=== PATIENT | female | born 1935 | race Caucasian/White ===

== ENCOUNTER → 2018-03-29 10:51 | Outpatient (CLI) | payer MEDICARE, OTHER, SELFPAY ==
--- NOTE | 2018-03-29 10:51 | DT_ITS ---
This patient was seen during an EMR downtime March 28, 2018 - April 04, 2018. This patient may have a combination of paper and electronic documentation or all paper documentation. All documentation is viewable within the e-chart portion of [facility] for each patient visit.
[2018-04-04 17:48] LABS: Hemoglobin A1c 5.5 % (4.2-6.3); Rheumatoid Factor < 10.0 IU/mL (<15); Thyroid Stim Hormone (TSH) 2.01 uIU/mL (0.358-3.74)
== END ==
PROVIDERS: Family Provider Family Medicine Geriatric Medicine; PCP Family Medicine Geriatric Medicine; Visit Provider Psychiatry & Neurology Neurology
DX: G62.9 Polyneuropathy, unspecified (principal)
CPT/HCPCS: 36415; 82607; 82784; 83036; 84165; 84166; 84443; 86038; 86235; 86256; 86334; 86335; 86431

== ENCOUNTER → 2018-04-06 15:54 | Outpatient (CLI) | payer MEDICARE, OTHER, SELFPAY ==
--- NOTE | 2018-04-06 16:02 | MRI_ITS ---
STUDY: MRI CERVICAL SPINE WITHOUT CONTRAST REASON FOR EXAM: Female, 83 years old. Arthritis and frequent falls TECHNIQUE: Standardized fat and water weighted pulse sequences were obtained in the sagittal and axial planes. COMPARISON: December 08 2011 MR cervical spine FINDINGS: Normal foramen magnum and brainstem-cervical cord junction. Normal craniovertebral junction. Normal anterior atlantoaxial articulation. Normal odontoid process. Normal cervical lordosis. Normal vertebral bodies and posterior osseous elements. C2-3: Normal endplates. Normal disc height, signal and morphology. Normal central canal and intervertebral neural foramina. C3-4: Severe narrowing of neural foramen on the right due to uncinate spondylosis. Central canal left neural foramen are patent. C4-5: Moderate narrowing of the neural foramina bilaterally due to uncinate spondylosis. Central canal is patent. C5-6: Moderate narrowing right neural foramen due to uncinate spondylosis. Central canal left neural foramen patent. Disc space narrowing. C6-7: Normal endplates. Narrowed disc height, signal and morphology. Normal central canal and intervertebral neural foramina. C7-T1: Normal endplates. Narrowed disc height, signal and morphology. Normal central canal and intervertebral neural foramina. Normal cervical cord. Normal visualized soft tissue structures. MRI/Spine Cervical (Routine) IMPRESSION: Multilevel degenerative disc disease and neural foraminal narrowing essentially unchanged Electronically Signed: Isauro Mercado MD at 23:52 EDT , Service support ,
--- NOTE | 2018-04-06 16:02 | MRI_ITS ---
STUDY: MRI LUMBAR SPINE WITHOUT CONTRAST REASON FOR EXAM: Female, 83 years old. Lower back pain TECHNIQUE: Standardized fat and water weighted pulse sequences were obtained in the sagittal and axial planes. COMPARISON: May 17, 2013 FINDINGS: T12-L1: Normal endplates. Normal disc height, hydration and morphology. Normal bilateral facet joints. Normal central canal and bilateral lateral recesses. Normal bilateral intervertebral neural foramina. Normal lumbar lordosis. There is no substantial scoliosis. Normal conus medullaris that terminates at T12-L1 L1-2: Normal endplates. Normal disc height, hydration and morphology. Normal bilateral facet joints. Normal central canal and bilateral lateral recesses. Normal bilateral intervertebral neural foramina. L2-3: Normal endplates. Normal disc height, desiccation and bulging annulus.. Normal bilateral facet joints. Mild narrowing of the central canal. Mild bilateral recess and neuroforaminal stenosis L3-4: Grade 1 spondylolisthesis narrowed disc space with desiccation of the disc and mild bulging disc osteophyte complex. Bilateral facet arthropathy and thickening of ligamenta flava. Moderate central canal stenosis. Severe bilateral recess and neuroforaminal stenosis exaggerated by shortened pedicles L4-5: Grade 1 spondylolisthesis Normal endplates. Narrowed disc space with moderate size bulging annulus osteophyte complex in association with central disc protrusion. The lateral facet arthropathy and thickening of ligamenta flava. Moderate to severe central canal stenosis severe bilateral recess stenosis and neural foraminal encroachment exaggerated by shortened pedicles L5-S1: Normal endplates. Normal disc height, desiccation and mild annular bulge with moderate size central disc protrusion.. Bilateral facet arthropathy and thickening of ligamenta flava. Mild narrowing of the central canal. Moderate bilateral recess and neuroforaminal stenosis. Normal visualized sacral ala. Normal visualized paraspinous soft tissue structures. There is progression of the disc disease and spinal stenosis at L2-3 since previous study Other findings are not significantly changed. MRI/Spine Lumbar (Routine) IMPRESSION: Spondylosis and multilevel spinal stenosis secondary to disc disease and bony hypertrophy exaggerated by shortened pedicles. Electronically Signed: Alejandro Cason MD at 23:57 EDT , Service support ,
--- NOTE | 2018-04-06 16:02 | MRI_ITS ---
STUDY: MRI BRAIN WITHOUT CONTRAST REASON FOR EXAM: Female, 83 years old. Frequent falls TECHNIQUE: Standardized multiplanar fat and water weighted pulse sequences were obtained. COMPARISON: MRI of the brain on September 13, 2011 FINDINGS: Moderate atrophy and advanced periventricular white matter ischemic changes without mass effect or restricted diffusion.. Chronic ischemic changes of the left pontine body. Normal bilateral basal ganglia. Normal thalami. There is no extra-axial fluid accumulation. Normal flow voids within the major intracranial circulation suggesting patency by spin echo criteria. Normal sella turcica, pituitary gland, infundibular stalk, optic chiasm and hypothalamus. Normal tectal plate and pineal gland. There are foci of signal dropout within the inferior frontal lobes bilaterally on the gradient echo weighted imaging sequence which may be due to hemosiderin deposition due to old hemorrhagic contusions. Normal midbrain, and medulla. Diffuse cerebellar atrophy.. Normal basal cisterns. Normal bilateral temporal bones. Normal bilateral internal auditory canals. Postsurgical changes involving left orbit . There is mild mucosal thickening of the ethmoid sinuses and moderate mucosal thickening of the right maxillary sinus and mild mucosal thickening on the left . There is mucosal thickening of the sphenoid sinus. Normal calvarium and skull base. Normal visualized soft tissue structures. Normal visualized upper cervical spine. MRI/Brain without Contrast IMPRESSION: Atrophy and advanced periventricular white matter ischemic changes without evidence for acute infarct. Chronic ischemic changes within the left pontine body. Findings which may be consistent with old hemorrhagic contusions in the inferior frontal lobes however would recommend correlation with clinical history Electronically Signed: Alejandro Cason MD at 21:08 EDT , Service support ,
== END ==
PROVIDERS: Family Provider Family Medicine Geriatric Medicine; PCP Family Medicine Geriatric Medicine; Visit Provider Psychiatry & Neurology Neurology
DX: M54.12 Radiculopathy, cervical region (principal); M54.16 Radiculopathy, lumbar region; R26.89 Other abnormalities of gait and mobility
CPT/HCPCS: 70551; 72141; 72148

== ENCOUNTER → 2018-05-10 15:31 | Outpatient (CLI) | payer MEDICARE, OTHER, SELFPAY ==
[2018-05-10 18:04] LABS: AST(SGOT) 39 U/L (15-37); Alanine Aminotransfer ALT/SGPT 21 U/L (13-56); Albumin, Serum 3.7 g/dL (3.2-5.0); Alkaline Phosphatase 76 U/L (45-117); Anion Gap 8 (5-15); BUN 22 mg/dL (7-18); BUN/Creat Ratio 27.4 RATIO (10-20); Calcium,Total 9.9 mg/dL (8.5-10.1); Chloride 103 mmol/L (98-107); EST Glomerular Filtration Rate 73 mL/min (>60); Est Glom Filt Rate - Afr Amer 88 mL/min (>60); Globulin 3.6 g/dL (2.2-4.2); Glucose 90 mg/dL (74-106); Potassium 4.1 mmol/L (3.5-5.1); Protein, Total 7.3 g/dL (6.4-8.2); Sodium Level 138 mmol/L (136-145); Thyroid Stim Hormone (TSH) 1.88 uIU/mL (0.358-3.74)
[2018-05-10 19:08] LABS: Red Blood Count 4.01 M/mm3 (4.2-5.4); White Blood Count 7.8 K/mm3 (4.4-11.0)
[2018-05-10 19:09] LABS: Mean Corp Hgb Conc 32.4 g/gl (32-36); Mean Corpuscular Hgb 29.9 pg (27.0-32.0); Mean Corpuscular Volume 92.3 fL (81-99); Mean Platelet Vol. 9.7 fl (6.2-12.0); Monocyte% 8.8 % (0-10); Neutrophil % 60.4 % (47-70); POSITIVE COUNT NO; POSITIVE DIFFERENTIAL NO; POSITIVE MORPHOLOGY NO; Platelet Count 275 K/mm3 (150-450); RBC Distribution Width CV 12.9 % (11.6-14.6); RBC Distribution Width SD 43.8 fl (35.1-43.9)
[2018-05-10 19:10] LABS: Absolute Lymphocyte Count 2.04 X10^3/ul (0.83-4.51); Absolute Neutrophil Count 4.7 X10^3/uL (2.0-7.7); Basophil# 0.08 X10^3/uL; Eosinophil# 0.29 X10^3/uL; Eosinophils% 3.7 % (0-5); Lymphocyte # 2.04 X10^3/ul (4.0); Monocyte# 0.69 X10^3/uL; Neutrophil # 4.73 X10^3/uL (2.7-7.7)
[2018-05-11 08:58] LABS: Vitamin D,25 Hydroxy 43.3 ng/mL (29.95-100.01)
== END ==
PROVIDERS: Family Provider Family Medicine Geriatric Medicine; PCP Family Medicine Geriatric Medicine; Visit Provider Family Medicine Geriatric Medicine
DX: I10 Essential (primary) hypertension (principal); E55.9 Vitamin D deficiency, unspecified
CPT/HCPCS: 36415; 80053; 82306; 84443; 85025

== ENCOUNTER → 2018-05-31 07:53 | Outpatient (CLI) | payer MEDICARE, OTHER, SELFPAY ==
--- NOTE | 2018-05-31 10:25 | NEURO_ITS ---
NCS and/or EMG Patient Report Ordering Doctor: June Marin DATE OF SERVICE: 05/31/18 This is a bilateral lower extremity nerve conduction study and a right lower extremity EMG performed on this 83-year-old female with falls, weakness in her legs and numbness in her feet. She also has a history of spinal stenosis and reports she has been diagnosed with an abnormal protein in her blood but she cannot describe this further. Says symptoms are symmetric. Bilateral lower extremity sensory and motor nerve conduction studies are performed along with F waves and H reflexes. The sural sensory responses are intact bilaterally. The common peroneal and tibial motor conduction velocities are symmetrically mildly slowed with symmetric mild reduction of amplitude and prolonged latencies. Tibial and common peroneal F-wave latencies are bilaterally prolonged and tibial H reflexes are suppressed bilaterally. Right lower extremity needle electromyography is performed. Muscles evaluated included the extensor digitorum brevis, abductor halitosis, medial gastrocnemius , anterior tibialis, vastus medialis and vastus lateralis muscles. All muscles demonstrated normal insertional activity with absence of pathologic spontaneous activity. Motor unit potential recruitment pattern and amplitude was normal in all muscles tested. 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
== END ==
PROVIDERS: Family Provider Family Medicine Geriatric Medicine; PCP Family Medicine Geriatric Medicine; Visit Provider Psychiatry & Neurology Neurology
DX: R20.2 Paresthesia of skin (principal); R20.0 Anesthesia of skin; G62.9 Polyneuropathy, unspecified
CPT/HCPCS: 95886; 95910

== ENCOUNTER 2018-06-13 09:04 | Inpatient (IN) | payer MEDICARE, OTHER, SELFPAY ==
[2018-06-13] VITALS (9 sets, daily range): BP systolic 98–147; BP diastolic 37–81; PULSE 66–101; RESP 16–18; TEMP 36.4–37.7; O2SAT 92–98; BMI 34.5; BMI 31.1; BMI 31.2
--- NOTE | 2018-06-13 09:30 | ED.DCSUM_ITS ---
- ER Visit Summary Date of Service: 06/13/18 Chief Complaint: Fall History of Present Illness: The patient is a [address] Diez. She reports that she tripped this morning while getting into a chair and fell. She hit her head, but did not have a loss of consciousness. She is not on any blood thinners. Reports that she has right hip pain that is 8 out of 10 severity. Some aching pain at rest and sharp with movement. She denies any neck, back, shoulder, or wrist pain. Review of systems: General: No fever, chills, cold sweats. Cardiovascular: No chest pain, palpitations. Respiratory: No cough, shortness of breath, dyspnea on exertion. Gastrointestinal: No abdominal pain, nausea, vomiting, diarrhea, melena, or hematochezia. Genitourinary: No dysuria, frequency, hematuria. Skin: No rash. Neuro: No headache, numbness, weakness. Physical Examination: Vitals: Stable. Afebrile. Neck: No vertebral tenderness. Full ROM without difficulty. Cleared by NEXUS criteria. Back: No vertebral tenderness. General: A&O x 3. NAD. Cardiovascular exam: Regular rate and rhythm, 2 out of 6 systolic murmur. Respiratory exam: Chest nontender. No crepitus. Clear to auscultation bilaterally. No wheezes or stridor. Abdominal exam: Soft, nontender, nondistended, normal bowel sounds. No pain in RUQ or LUQ specifically. No peritoneal signs. Extremity: Moderate tenderness palpation over the right greater trochanter. Her leg is shortened and externally rotated. She has pain with internal/ external rotation of her leg. She has normal sensation to light touch. Test Results: CT brain shows chronic changes. Right hip x-ray shows an intertrochanteric fracture. Emergency Department Course and Treatment: Patient was given a dose of fentanyl IM. She is resting comfortably. When the x-ray returned she had an EKG, chest x-ray, and labs ordered. These are pending. Treatment Plan: Patient was discussed with Dr. Jaciel Ferrari. She will be admitted to the hospitalist and he will be in consult. Disposition: Admitted in stable condition. Impression: 1. Right intertrochanteric hip fracture. This note was generated with [employer] software. It may contain incorrect words, spelling, and punctuation that were not noted in review of the chart prior to signing ED Disposition - Plan for ED Patient: Chief Complaint: Fall Referrals: Jovan Diez Chi, MD [Primary Care Provider] -
[2018-06-13] MEDS: fentaNYL 100 MCG/2 ML Ampul 50 MCG IM (09:38)
--- NOTE | 2018-06-13 11:28 | PCM.HP.STD ---
Problem List (1) Fracture, intertrochanteric, right femur Status: Acute Qualifiers: Encounter type: initial encounter Fracture type: closed Fracture alignment: nondisplaced Qualified Code(s): S72.144A - Nondisplaced intertrochanteric fracture of right femur, initial encounter for closed fracture (2) Fall Status: Acute Qualifiers: Encounter type: initial encounter Qualified Code(s): W19.XXXA - Unspecified fall, initial encounter (3) HLD (hyperlipidemia) Status: Chronic Qualifiers: Hyperlipidemia type: pure hypercholesterolemia Qualified Code(s): E78.00 - Pure hypercholesterolemia, unspecified; E78.0 - Pure hypercholesterolemia (4) HTN (hypertension) Status: Chronic Qualifiers: Hypertension type: essential hypertension Qualified Code(s): I10 - Essential (primary) hypertension (5) Urine incontinence Status: Chronic Qualifiers: Urinary Incontinence type: unspecified incontinence Qualified Code(s): R32 - Unspecified urinary incontinence (6) Macular degeneration Status: Chronic Qualifiers: Macular degeneration type: unspecified type Eye laterality: left Qualified Code(s): H35.30 - Unspecified macular degeneration (7) Spinal stenosis Status: Chronic Qualifiers: Spinal region: unspecified Qualified Code(s): M48.00 - Spinal stenosis, site unspecified (8) Fibromyalgia Status: Chronic History of Present Illness Date of Admission: 06/13/18 Chief Complaint: R hip pain s/p fall The patient is a 83 y/o F w/ PMHx: HTN, HLD, Urinary Incontinence, Spinal Stenosis not amenable to operative intervention per [place] [facility], Fibromyalgia, Macular Degeneration currently residing in assisted living w/ noted frequent falls over the last year who presents to the [facility] ED on 06/13/18 with recurrent fall while seated in the restroom, getting dressed and attempting to stand to grab her med alert button, falling onto her right hip on the floor and concurrently hitting her head on the floor with no LOC. Work-up included T 97.6, heart rate 66, BP 147/65, respiratory rate 16, 96% on room air, BC with WBC 16.2, hemoglobin 12, platelet 257 with left shift, BMP with potassium 3.4, carbon dioxide 33, anion gap 2, BUN/creatinine 16/0.56, glucose 136, normal magnesium, UA without acute evidence of infection, plain films in the ED w/ evidence acute R comminuted intertrochanteric hip fracture, brain with chronic changes but no acute findings, chest x-ray with chronic changes otherwise no acute findings. ED physician discussed patient hip fracture with on-call orthopedic surgeon, Dr. Ferrari who notes intention for operative intervention on 06/14/[address] Montez. Past Medical History Past Medical History (Chronic Problems): Chronic Problems Macular degeneration (Chronic) Spinal stenosis (Chronic) Fibromyalgia (Chronic) Urine incontinence (Chronic) HLD (hyperlipidemia) (Chronic) HTN (hypertension) (Chronic) Allergies iodine Allergy (Verified 06/13/18 09:08) Rash COUGH SYRUP W/IODINE Allergy (Uncoded 06/13/18 09:08) Rash Home Medications: Ambulatory Orders Medication Instructions Recorded Aspirin E.C. [Ecotrin] 81 mg PO DAILY@0800 01/15/17 Calcium Carbonate/Vitamin D3 2 each PO DAILY 01/15/17 [Caltrate 600 Plus D3 Tablet] Gabapentin [Neurontin] 300 mg PO DAILY 01/15/17 Gluc Ko/Chondro Ko A/Vit C/Mn 2 each PO DAILY 01/15/17 [Glucosamine 1,500 Complex Cp] Losartan/Hydrochlorothiazide 1 tab PO DAILY 01/15/17 [Losartan-Hctz 100-25 mg Tab] Meloxicam [Mobic] 15 mg PO DAILY 01/15/17 Multivit-Min/Iron/Folic/Lutein 1 each PO DAILY 01/15/17 [Centrum Silver Women Tablet] Pravastatin Sodium 20 mg PO QHS 01/15/17 Sertraline HCl [Zoloft] 50 mg PO DAILY 01/15/17 traMADol [Ultram (G)] 50 mg PO Q4H PRN PRN 01/15/17 Vit C/E/Zn/Coppr/Lutein/Zeaxan 2 each PO DAILY 10/14/17 [Preservision Areds 2 Softgel] Surgical History: - - Tonsillectomy, appendectomy, total abdominal hysterectomy, repair of detached left retina, left cataract surgery, left carpal tunnel surgery. Psychiatric History: Anxiety, Depression IP LITIGATION PARALEGAL History: No pertinent IP LITIGATION PARALEGAL history Lives: - - Patient lives in assisted living at [facility]. Smoking Status: Never smoker Tobacco Use: Non-smoker Alcohol: None Drugs: None - *Family History Maternal History Items: - - Patient notes a maternal family history of colon cancer with metastatic disease to the liver. Paternal History Items: - - Patient notes internal family history of prostate cancer with metastatic disease to the bones. Sibling History Items: - - Patient notes a history of colon cancer as well as breast cancer in her sister who remains living. Review of Systems Constitutional: Reports: Malaise, Weakness, Fatigue. Denies: Chills, Fever, Weight Change HEENT: Denies: Head Aches, Sinus Congestion, Sinus Drainage Cardiovascular: Denies: Chest Pain, Palpitations Respiratory: Denies: Cough, Shortness of breath at rest, Sputum production Gastrointestinal: Denies: Abdominal Pain, Nausea, Vomiting Genitourinary: Denies: Dysuria Musculoskeletal: Reports: Joint stiffness, Joint swelling, Joint Tenderness, Leg Pain. Denies: Joint Pain Skin: Denies: Rash, Wounds Neurological: Reports: Incoordination. Denies: Focal weakness, Numbness, Tingling Psychiatric: Reports: Anxiety, Depression. Denies: Homicidal Ideations, Suicidal Ideations Hematologic/ Lymphatic: Denies: Easy Bruising, Easy Bleeding VTE Information - Inpt Only VTE Present on Admission: No VTE Mechan Device Prophylaxis: SCD's VTE Pharm Prophylaxis ordered?: Yes Patient Problems: Active and Suspected Problems Fracture, intertrochanteric, right femur (Acute) Subjective: Laying in the bed, currently no acute distress, notes discomfort with any attempted movement of the right lower extremity, recent narcotics so responses mildly slow. Objective: Physical Examination: General: awake, alert but slow responses with recent narcotic administration, oriented x 3 and cooperative, laying in the bed, in no apparent distress. Skin: normal color, turgor, no icterus, cyanosis. HEENT: AT/NC, EOMI, PERRLA, mildly dry MM, no carotid bruits or JVD noted. Lungs: Diminished breath sounds bilateral bases minimally, moderate effort, no rales, ronchi or wheezing to anterior inside examination. Heart: Regular rate and rhythm; no gallop, rub audible. Abdomen: soft, NTTP, ND, normal BS, no HSM. Extremities: no cyanosis, clubbing, s/p fall w/ R Hip fracture, distal pulses intact. Neurological: patient awake, alert, oriented x 3; cognitive function intact; pupils equally reactive to light and accomodation; cranial nerves II-XII grossly normal, moving all 4 extremities but severely limited RLE secondary to recent fall w/ hip fracture, strength accordingly severely globally decreased. Psychiatric: affect appears normal, no acute evidence of depressive or anxiety feelings. - Physical Exam Vital Signs Temp Pulse Resp BP Pulse Ox 97.6 F L 66 16 147/65 H 97 06/13/18 09:05 06/13/18 09:05 06/13/18 09:05 06/13/18 09:05 06/13/18 09:11 Oxygen Delivery Method Room Air Weight: 176 lb 12.972 oz Body Mass Index (BMI) 34.5 Assessment/Plan All Active Problems Fracture, intertrochanteric, right femur (Acute) Fall (Acute) The patient is a 83 y/o F w/ PMHx: HTN, HLD, Urinary Incontinence, Spinal Stenosis not amenable to operative intervention per [place] [facility], Fibromyalgia, Macular Degeneration currently residing in assisted living w/ noted frequent falls over the last year who presents to the [facility] ED on 06/13/18 with recurrent fall while seated in the restroom, getting dressed and attempting to stand to grab her med alert button, falling onto her right hip on the floor and concurrently hitting her head on the floor with no LOC. (1) General debility, R hip pain s/p mechanical fall w/ R comminuted intertrochanteric fracture: CT head without acute findings. Plain film noting right comminuted intertrochanteric hip fracture. Orthopedic surgery consulted from ED. Will admit to [facility], maintain NPO after midnight for planned operative intervention, continue gentle IVFs, obtain TSH, Mag normal, UA noted marked appearing, caldwell placed, monitor I/Os, frequent positioning, fall precautions. Pain, anti-emetic regimen. PT/OT following operative intervention. CM consulted for discharge planning and patient understands she will likely need SNF. Per [facility] Perioperative Cardiac Risk Index given 3-4 METS but limitations secondary to primarily back stenosis, age 83, Cr normal, partially independent living status, ASA 3 for orthopedic intervention, estimated risk of perioperative myocardial infarction or cardiac arrest mild to moderate risk w/ agreement for progression to operative intervention. Patient active at her facility and notes no dyspnea or chest discomfort. She notes she has been well and only limited secondary to her stenosis and fibromyalgia. EKG with SR without no acute findings, CXR with chronic changes but no acute concerns. Dr. Ferrari updated. (2) Leukocytosis: Likely stress response, admission CBC w/ WBC 16.2 with L shift, UA not marked, CXR without acute findings, trend. (3) Hypertension: Continue home regimen including losartan, hydrochlorothiazide, PRN hydralazine. (4) Hyperlipidemia: Continue home statin regimen. (5) Stenosis, lumbar, chronic with radiculopathy: Fall precautions, position changes, maintain bedrest secondary to acute hip fracture, hold Mobic secondary to planned intervention, continue home Neurontin regimen. (6) Hypokalemia: Admission K+ 3.4, supplementation given, repeat level in AM. (7) Hyperglycemia: Admission glucose 136, likely stress response, will obtain HgBA1c. (8) Anxiety and depression: Continue home Zoloft regimen. (9) Obesity: Weight loss and lifestyle changes encouraged. (10) DVT Prophylaxis: SCDs, lovenox w/ AM hold for intervention. (11) CODE status: Patient has a living will and notes that her healthcare power of assistant district attorney is her brother and sister. Discussed CODE status at length including difference between FULL code, DNR-CCA and DNR-CC status. Following discussions about the differences in these status, requested DNR-CCA, no intubation status but understands that she will remain FULL code status boo-operatively and then upon SNF transition to DNR-CCA, no intubation. Advanced Care Planning Face to Face Time: 17 minutes. Code Visit Inpatient E&M: 37398 Init Hosp L3 Procedures: 65978 Advncd Care Plan 30 Min
--- NOTE | 2018-06-13 11:29 | NURSING ---
DR VIDAL FOR DR TRIPLETT
--- NOTE | 2018-06-13 11:47 | NURSING ---
207 HIP FRACTURE WHITE
[2018-06-13] MEDS: fentaNYL 100 MCG/2 ML Ampul 50 MCG IV (11:58)
[2018-06-13 11:59] LABS: Absolute Lymphocyte Count 0.86 X10^3/ul (0.83-4.51); Absolute Neutrophil Count 14.4 X10^3/uL (2.0-7.7); Basophil# 0.04 X10^3/uL; Basophil% 0.2 % (0-1); Eosinophil# 0.02 X10^3/uL; Eosinophils% 0.1 % (0-5); Hematocrit 32.9 % (37-47); Lymphocyte # 0.86 X10^3/ul (4.0); Lymphocyte % 5.3 % (19-41); Mean Corp Hgb Conc 36.5 g/gl (32-36); Mean Corpuscular Hgb 36.3 pg (27.0-32.0); Mean Corpuscular Volume 99.4 fL (81-99); Mean Platelet Vol. 9.2 fl (6.2-12.0); Monocyte# 0.84 X10^3/uL; Monocyte% 5.2 % (0-10); Neutrophil # 14.41 X10^3/uL (2.7-7.7); Neutrophil % 88.9 % (47-70); Platelet Count 257 K/mm3 (150-450); RBC Distribution Width CV 14.9 % (11.6-14.6); RBC Distribution Width SD 41.7 fl (35.1-43.9); Red Blood Count 3.31 M/mm3 (4.2-5.4); White Blood Count 16.2 K/mm3 (4.4-11.0)
[2018-06-13 12:01] LABS: POSITIVE COUNT NO; POSITIVE DIFFERENTIAL NO; POSITIVE MORPHOLOGY NO
[2018-06-13 12:04] LABS: Anion Gap 2 (5-15); BUN 16 mg/dL (7-18); BUN/Creat Ratio 28.7 RATIO (10-20); Calcium,Total 9.5 mg/dL (8.5-10.1); Chloride 102 mmol/L (98-107); Creatinine, Serum 0.56 mg/dL (0.55-1.02); EST Glomerular Filtration Rate 111 mL/min (>60); Est Glom Filt Rate - Afr Amer 134 mL/min (>60); Estimated Creatinine Clearance 31.69 ml/min; Glucose 136 mg/dL (74-106); Potassium 3.4 mmol/L (3.5-5.1); Sodium Level 137 mmol/L (136-145)
--- NOTE | 2018-06-13 12:24 | ED.RN ---
called pt sister per pt request and left message. Elvira Tillman [phone]
[2018-06-13 13:01] LABS: Bacteria 0 SEEN /hpf (None Seen); Mucous, Urine 0 SEEN /hpf (<or=2+); Red Blood Cells-Urine 0 SEEN /hpf (0-5); Squamous Epithelial Cells - UA 0 SEEN /hpf (5-10); White Blood Cells 0 SEEN /hpf (0-5)
[2018-06-13 13:02] LABS: Color, Urine Yellow (Yellow); Glucose, Dipstick Normal (Normal); Ketone-Dipstick Negative (Negative); Leukocyte Esterase-Dipstick Negative /ul (Negative); Nitrite-Dipstick Negative (Negative); Occult Blood-Urine Negative /ul (Negative); Protein-Dipstick Negative (Negative); Urine Bilirubin Dipstick Negative (Negative); Urine Clarity Sl. Cloudy (Clear); Urine Urobilinogen Normal (Normal)
[2018-06-13] MEDS: 0.9% Normal Saline 1,000 ML 75 ML IV (13:53)
[2018-06-13 14:32] LABS: Hemoglobin A1c 5.6 % (4.2-6.3)
[2018-06-13] MEDS: Calcium Carb/Vitamin D 1 TABLET Tablet 2 TABLET PO (15:16)
[2018-06-13] MEDS: hydroCHLOROthiazide 25 MG Tablet PO (15:16)
[2018-06-13] MEDS: Losartan Potassium 100 MG Tablet PO (15:16)
[2018-06-13] MEDS: Aspirin E.C. 81 MG Tablet PO (15:17)
[2018-06-13] MEDS: Enoxaparin 30 MG/0.3 ML Syringe SC (15:17)
[2018-06-13] MEDS: Ipratropium/Albuterol Sulfate 3 ML AMPUL.NEB INHALATION ×2 (15:39→18:48)
[2018-06-13 17:18] LABS: Thyroid Stim Hormone (TSH) 1.99 uIU/mL (0.358-3.74)
[2018-06-13] MEDS: oxyCODONE 5 MG Tablet PO (17:43)
[2018-06-13] MEDS: Sertraline 50 MG Tablet PO (21:00)
[2018-06-13] MEDS: Pravastatin 20 MG Tablet PO (21:00)
[2018-06-13] MEDS: 0.9% NaCl Peripheral Flush Adult/Peds IV (21:00)
[2018-06-13] MEDS: Morphine 2 MG/ML Syringe IV (21:00)
[2018-06-14] VITALS (12 sets, daily range): BP systolic 93–174; BP diastolic 45–91; PULSE 70–82; RESP 16–18; TEMP 36.5–37.2; O2SAT 84–98; BMI 31.1; BMI 31.2
--- NOTE | 2018-06-14 02:06 | CPS ---
pt placed on 2 l/m via nc by nursing for low sat
[2018-06-14] MEDS: Morphine 2 MG/ML Syringe IV ×3 (02:42→14:14)
[2018-06-14] MEDS: 0.9% Normal Saline 1,000 ML 75 ML IV ×2 (02:42→16:02)
[2018-06-14 06:23] LABS: Absolute Neutrophil Count 7.6 X10^3/uL (2.0-7.7); Basophil# 0.03 X10^3/uL; Basophil% 0.3 % (0-1); Eosinophil# 0.04 X10^3/uL; Eosinophils% 0.4 % (0-5); Hematocrit 31.7 % (37-47); Hemoglobin 10.5 g/dl (12.0-15.0); Lymphocyte % 14.9 % (19-41); Mean Corp Hgb Conc 33.1 g/gl (32-36); Mean Corpuscular Hgb 32.9 pg (27.0-32.0); Mean Corpuscular Volume 99.4 fL (81-99); Mean Platelet Vol. 9.5 fl (6.2-12.0); Monocyte# 0.93 X10^3/uL; Monocyte% 9.2 % (0-10); Neutrophil # 7.58 X10^3/uL (2.7-7.7); Neutrophil % 75.1 % (47-70); Platelet Count 234 K/mm3 (150-450); RBC Distribution Width CV 13.5 % (11.6-14.6); RBC Distribution Width SD 46.1 fl (35.1-43.9); Red Blood Count 3.19 M/mm3 (4.2-5.4); White Blood Count 10.1 K/mm3 (4.4-11.0)
[2018-06-14 06:35] LABS: Anion Gap 8 (5-15); BUN 20 mg/dL (7-18); BUN/Creat Ratio 30.4 RATIO (10-20); Calcium,Total 9.2 mg/dL (8.5-10.1); Chloride 105 mmol/L (98-107); Creatinine, Serum 0.66 mg/dL (0.55-1.02); EST Glomerular Filtration Rate 92 mL/min (>60); Est Glom Filt Rate - Afr Amer 111 mL/min (>60); Estimated Creatinine Clearance 31.69 ml/min; Glucose 109 mg/dL (74-106); Potassium 4.5 mmol/L (3.5-5.1); Sodium Level 141 mmol/L (136-145)
[2018-06-14 06:36] LABS: POSITIVE COUNT NO; POSITIVE DIFFERENTIAL NO; POSITIVE MORPHOLOGY NO
[2018-06-14] MEDS: Ipratropium/Albuterol Sulfate 3 ML AMPUL.NEB INHALATION ×3 (07:11→19:50)
[2018-06-14] MEDS: oxyCODONE 5 MG Tablet PO ×2 (07:34→21:12)
[2018-06-14] MEDS: Gabapentin 300 MG Capsule PO (07:39)
[2018-06-14] MEDS: Calcium Carb/Vitamin D 1 TABLET Tablet 2 TABLET PO (07:39)
[2018-06-14] MEDS: hydroCHLOROthiazide 25 MG Tablet PO (07:59)
[2018-06-14] MEDS: Polyethylene Glycol 3350 17 GM PACKET PO (07:59)
[2018-06-14] MEDS: Losartan Potassium 100 MG Tablet PO (08:01)
--- NOTE | 2018-06-14 08:15 | PCM.PN.HOSP ---
Patient Problems: Active and Suspected Problems Fracture, intertrochanteric, right femur (Acute) Subjective: The patient is a 83 y/o F w/ PMHx: HTN, HLD, Urinary Incontinence, Spinal Stenosis not amenable to operative intervention per [facility] Neurosurgeon, Fibromyalgia, Macular Degeneration currently residing in assisted living w/ noted frequent falls over the last year who presents to the [facility] ED on 06/13/18 with recurrent fall while seated in the restroom, getting dressed and attempting to stand to grab her med alert button, falling onto her right hip on the floor and concurrently hitting her head on the floor with no LOC. CT head without acute findings. Plain film noting right comminuted intertrochanteric hip fracture. Orthopedic surgery consulted from ED. Admitted to [place], maintained NPO currently for planned intervention 06/14/18, continue gentle IVFs, TSH normal, Mag normal, UA unremarkable, caldwell in place, SH, Mag normal, UA noted marked appearing, caldwell placed, monitor I/Os, frequent positioning, fall precautions. Pain, anti-emetic regimen. PT/OT following operative intervention. CM consulted for discharge planning and patient understands she will likely need SNF and is amenable. CODE status: FULL Code during boo-operative timeline, but once appropriate for discharge to SNF per discussion with patient will need to transition back to her requested status of DNR-CCA, no intubation. Patient notes intermittent discomfort overnight but improves the pain regimen although this has been limited secondary to respiratory depression with increased narcotic administration. Patient is hard of hearing and does require replacement of her hearing aids for improved discussions. Planned operative intervention today although may be delayed to later today secondary to alternate needs for operating room. Patient denies fevers, chills, nausea, emesis, abdominal pain, chest pain or dyspnea. Objective: Physical Examination: General: awake, alert but slow responses with recent narcotic administration, oriented x 3 and cooperative, laying in the bed, in no apparent distress. Skin: normal color, turgor, no icterus, cyanosis. HEENT: AT/NC, EOMI, PERRLA, improved MMM. Lungs: Diminished breath sounds bilateral bases minimally, moderate effort, no rales, ronchi, noted some upper airway sounds, no wheezing. Heart: Regular rate and rhythm; no gallop, rub audible. Abdomen: soft, NTTP, ND, normal BS, no HSM. Extremities: no cyanosis, clubbing, s/p fall w/ R Hip fracture, distal pulses intact. Neurological: patient awake, alert, oriented x 3; cognitive function intact; pupils equally reactive to light and accomodation; cranial nerves II-XII grossly normal, moving all 4 extremities but severely limited RLE secondary to recent fall w/ hip fracture, strength accordingly severely globally decreased. Psychiatric: affect appears normal, no acute evidence of depressive or anxiety feelings. Vitals/I&O's: Vital Signs Temp Pulse Resp BP Pulse Ox 98.7 F 76 18 97/45 L 96 06/14/18 02:38 06/14/18 02:38 06/14/18 02:38 06/14/18 02:38 06/14/18 02:38 Oxygen Flow Rate (L/min) 2 Oxygen Delivery Method Room Air Weight: 159 lb 13.362 oz Body Mass Index (BMI) 31.1 Intake and Output for Last 24 Hours 06/12/18 06/13/18 06/14/18 23:59 23:59 23:59 Intake Total 1989 Output Total 200 / 200 675 / 675 Balance -200 / -200 1315 / 1315 Laboratory Results 06/14/18 05:34: WBC 10.1, RBC 3.19 L, Hgb 10.5 L, Hct 31.7 L, MCV 99.4 H, MCH 32.9 H, MCHC 33.1, RDW 13.5, RDW Differential 46.1 H, Plt Count 234, MPV 9.5, Immature Gran % (Auto) 0.100, Neut % (Auto) 75.1 H, Lymph % (Auto) 14.9 L, [place] % (Auto) 9.2, Eos % (Auto) 0.4, Baso % (Auto) 0.3, Absolute Neuts (auto) 7.6, Absolute Lymphs (auto) 1.50, Total Counted Not Reportable 06/14/18 05:34: Sodium 141, Potassium 4.5, Chloride 105, Carbon Dioxide 28.0, Anion Gap 8, BUN 20 H, Creatinine 0.66, Estim Creat Clear Calc 31.69, Est GFR (MDRD) Af Amer 111, Est GFR (MDRD) Non-Af 92, BUN/Creatinine Ratio 30.4 H, Glucose 109 H, Calcium 9.2 06/14/18 05:34: Blood Type AB NEGATIVE, Antibody Screen NEGATIVE Current Medications Acetaminophen (Tylenol) 650 mg PO Q6H PRN PRN PRN Reason: Mild Pain (scale 0-3)/T>100.7 Al Hydroxide/Mg Hydroxide (Mylanta Ii) 30 ml PO Q6H PRN PRN PRN Reason: Gastric burning Albuterol Sulfate (Ventolin Aerosols) 2.5 mg INHALATION Q2H PRN PRN PRN Reason: dyspnea, wheezing Albuterol/Ipratropium (Duoneb) 3 ml INHALATION Q6HWA.RT [facility] Last Admin: 06/14/18 07:11 Dose: 3 ml Aspirin (Ecotrin) 81 mg PO DAILY@0800 [facility] Last Admin: 06/14/18 08:02 Dose: Not Given Bisacodyl (Dulcolax) 10 mg PO DAILY PRN PRN PRN Reason: Constipation Calcium/Vitamin D (Os-Lazaro 500mg + D[facility] Admin: 06/14/18 07:39 Dose: 2 tablet Docusate Sodium (Colace) 200 mg PO BID PRN PRN PRN Reason: Constipation Enoxaparin Sodium (Lovenox) 30 mg SC DAILY@0600 [facility] Last Admin: 06/13/18 15:17 Dose: 30 mg [facility]ap[facility]in) [facility] Admin: 06/14/18 07:39 Dose: 300 mg Hydrochlorothiazide (Hctz) 25 mg PO DAILY [facility] Last Admin: 06/14/18 07:59 Dose: 25 mg Sodium Chloride () 1,000 mls @ 75 mls/hr IV .[id number] [facility] Last Admin: 06/14/18 02:42 Dose: 75 mls/hr Cefazolin Sodium () 1 gm in 50 mls @ 100 mls/hr IV SEND TO OR W/PATIENT ONE Stop: 06/14/18 12:29 Losartan Potassium (Cozaar) 100 mg PO DAILY [facility] Last Admin: 06/14/18 08:01 Dose: 100 mg Magnesium Hydroxide (Milk Of Magnesia) 30 ml PO DAILY PRN PRN PRN Reason: Constipation Morphine Sulfate () 2 - 4 mg IV Q3H PRN PRN PRN Reason: Severe Pain (pain scale 6-10) Last Admin: 06/14/18 05:45 Dose: 2 mg Morphine Sulfate () 1 - 2 mg IV Q4H PRN PRN PRN Reason: Moderate Pain (pain scale 4-5) Morphine Sulfate () 2 - 4 mg IV Q3H PRN PRN PRN Reason: Severe Pain (pain scale 6-10) Multivitamins/Minerals (Healthy Eyes) 2 tablet PO DAILY [facility] Last Admin: 06/14/18 08:00 Dose: 2 tablet Ondansetron HCl (Zofran) 4 mg IV Q8H PRN PRN PRN Reason: NAUSEA Oxycodone HCl (Oxyir) 5 mg PO Q4H PRN PRN PRN Reason: Moderate Pain (pain scale 4-5) Last Admin: 06/14/18 07:34 Dose: 5 mg Polyethylene Glycol (Miralax) 17 gm PO DAILY [facility] Last Admin: 06/14/18 07:59 Dose: 17 gm Pravastatin Sodium (Pravachol) 20 mg PO QHS [facility] Last Admin: 06/13/18 21:00 Dose: 20 mg Promethazine HCl (Phenergan) 12.5 mg IV Q6H PRN PRN PRN Reason: NAUSEA/VOMITING Sertraline HCl (Zoloft) 50 mg PO DAILY [facility] Last Admin: 06/13/18 21:00 Dose: 50 mg Sodium Chloride () 5 - 30 ml IV UD PRN PRN Reason: SALINE FLUSH Last Admin: 06/13/18 21:00 Dose: 10 ml Medical Necessity - Tobacco Use Smoking Status: Never smoker Tobacco Use: Non-smoker Assessment/Plan All Active Problems Fracture, intertrochanteric, right femur (Acute) Fall (Acute) The patient is a 83 y/o F w/ PMHx: HTN, HLD, Urinary Incontinence, Spinal Stenosis not amenable to operative intervention per [place] Neurosurgeon, Fibromyalgia, Macular Degeneration currently residing in assisted living w/ noted frequent falls over the last year who presents to the [facility] ED on 06/13/18 with recurrent fall while seated in the restroom, getting dressed and attempting to stand to grab her med alert button, falling onto her right hip on the floor and concurrently hitting her head on the floor with no LOC. (1) General debility, R hip pain s/p mechanical fall w/ R comminuted intertrochanteric fracture: CT head without acute findings. Plain film noting right comminuted intertrochanteric hip fracture. Orthopedic surgery consulted from ED. Admitted to [place], maintained NPO currently for planned intervention 06/14/18, continue gentle IVFs, TSH normal, Mag normal, UA unremarkable, caldwell in place, SH, Mag normal, UA noted marked appearing, caldwell placed, monitor I/Os, frequent positioning, fall precautions. Pain, anti-emetic regimen. PT/OT following operative intervention. CM consulted for discharge planning and patient understands she will likely need SNF and is amenable. (2) Leukocytosis: Likely stress response, admission CBC w/ WBC 16.2 with L shift, UA not marked, CXR without acute findings, repeat 06/14/18 CBC w/ WBC 10.1 with no marked L shift. (3) Hypertension: Continue home regimen including losartan, hydrochlorothiazide, PRN hydralazine. (4) Hyperlipidemia: Continue home statin regimen. (5) Stenosis, lumbar, chronic with radiculopathy: Fall precautions, position changes, maintain bedrest secondary to acute hip fracture, hold Mobic secondary to planned intervention, continue home Neurontin regimen. (6) Hypokalemia: Admission K+ 3.4, supplementation given, repeat level 4.5. (7) Hyperglycemia: Admission glucose 136, likely stress response, HgBA1c 5.6%. (8) Anxiety and depression: Continue home Zoloft regimen. (9) Obesity: Weight loss and lifestyle changes encouraged. (10) DVT Prophylaxis: SCDs, lovenox w/ current hold for intervention. (11) CODE status: FULL Code during boo-operative timeline, but once appropriate for discharge to SNF per discussion with patient will need to transition back to her requested status of DNR-CCA, no intubation. Code Visit Inpatient E&M: 85850 Subs Hosp L2
[2018-06-14] MEDS: Sertraline 50 MG Tablet PO (09:41)
--- NOTE | 2018-06-14 11:35 | CASEMGMT ---
Social Work Note Pt is from [facility]. Pt came in with hip fracture and will most likely need SNF for rehabilitation before returning to [facility]. SW met with pt to confirm discharge plans. SW introduced self and role at [facility]. Pt is alert and orientated x3. Pt confirms that she is from [facility] and has been living there since August 18, 2013. Pt is agreeable to referral being sent to [facility] for rehabilitation. SW explained referral process and explained Medicare guidelines. Pt states understanding. Pt is scheduled for surgery today at 5:30pm. KRISTEN faxed available clinicals to Kandice at [facility]. SW placed a call to Kandice at [facility] and left her a message updating her on referral and pt's scheduled surgery time. SW to fax updated clinicals when available to [facility]. Plan: [facility] pending acceptance Gayla Lee LABOR EXPEDITER, MANOMETER TECHNICIAN
[2018-06-14] MEDS: 0.9% NaCl Peripheral Flush Adult/Peds IV (14:21)
--- NOTE | 2018-06-14 17:43 | PCM.CONS.GEN ---
Reason for Consult Date of Consultation: 06/14/18 Reason for Consultation: Right hip fracture. Requested by Dr. Castillo History of Present Illness: The patient is a 83 year old F who resides in an assisted living and ambulates with a walker presents today after falling while trying to sit in her chair. Patient states she went to sit down and missed the chair landing on her right hip. She reports pain in her right hip and groin. She has pain which is worse with motion better with immobilization. She rates her pain at a 9 out of 10. She denies any new numbness and tingling. She is a history significant for peripheral neuropathy with associated chronic numbness and tingling. She also has a history of spinal stenosis which is 1 of the reasons why she uses a walker. She has multiple medical comorbidities. Past Medical History Past Medical History (Chronic Problems): Chronic Problems Macular degeneration (Chronic) Spinal stenosis (Chronic) Fibromyalgia (Chronic) Urine incontinence (Chronic) HLD (hyperlipidemia) (Chronic) HTN (hypertension) (Chronic) Allergies iodine Allergy (Verified 06/13/18 09:08) Rash COUGH SYRUP W/IODINE Allergy (Uncoded 06/13/18 09:08) Rash Home Medications: Ambulatory Orders Medication Instructions Recorded Aspirin E.C. [Ecotrin] 81 mg PO DAILY@0800 01/15/17 Calcium Carbonate/Vitamin D3 2 each PO DAILY 01/15/17 [Caltrate 600 Plus D3 Tablet] Gabapentin [Neurontin] 300 mg PO DAILY 01/15/17 Gluc Ko/Chondro Ko A/Vit C/Mn 2 each PO DAILY 01/15/17 [Glucosamine 1,500 Complex Cp] Losartan/Hydrochlorothiazide 1 tab PO DAILY 01/15/17 [Losartan-Hctz 100-25 mg Tab] Meloxicam [Mobic] 15 mg PO DAILY 01/15/17 Multivit-Min/Iron/Folic/Lutein 1 each PO DAILY 01/15/17 [Centrum Silver Women Tablet] Pravastatin Sodium 20 mg PO QHS 01/15/17 Sertraline HCl [Zoloft] 50 mg PO DAILY 01/15/17 traMADol [Ultram (G)] 50 mg PO Q4H PRN PRN 01/15/17 Vit C/E/Zn/Coppr/Lutein/Zeaxan 2 each PO DAILY 10/14/17 [Preservision Areds 2 Softgel] Surgical History: - - Tonsillectomy, appendectomy, total abdominal hysterectomy, repair of detached left retina, left cataract surgery, left carpal tunnel surgery. Psychiatric History: Anxiety, Depression BSA/AML COMPLIANCE OFFICER History: No pertinent BSA/AML COMPLIANCE OFFICER history Lives: - - Patient lives in assisted living at [facility]. Smoking Status: Never smoker Tobacco Use: Non-smoker Alcohol: None Drugs: None - *Family History Maternal History Items: - - Patient notes a maternal family history of colon cancer with metastatic disease to the liver. Paternal History Items: - - Patient notes internal family history of prostate cancer with metastatic disease to the bones. Sibling History Items: - - Patient notes a history of colon cancer as well as breast cancer in her sister who remains living. Review of Systems Constitutional: Denies: Chills, Fever, Weight Change Eyes: Reports: - - Macular degeneration HEENT: Denies: Head Aches, Sinus Congestion, Sinus Drainage Cardiovascular: Denies: Chest Pain, Palpitations Respiratory: Denies: Cough, Shortness of breath at rest, Sputum production Gastrointestinal: Denies: Abdominal Pain, Nausea, Vomiting Genitourinary: Denies: Dysuria Musculoskeletal: Reports: - - See HPI Skin: Denies: Rash, Wounds Neurological: Denies: Numbness, Tingling, Focal weakness Psychiatric: Denies: Anxiety, Depression, Homicidal Ideations, Suicidal Ideations Hematologic/ Lymphatic: Denies: Easy Bruising, Easy Bleeding Patient Problems: Active and Suspected Problems Fracture, intertrochanteric, right femur (Acute) Objective: Right hip radiographs reveal a comminuted transfer trochanteric intertrochanteric fracture of the right hip - Physical Exam General: Alert, Oriented x3, Cooperative Extremities: - - Right lower extremity: Skin clean, dry, and intact. Limb is shortened and externally rotated Motor is intact dorsiflexion, EHL and plantar flexion. Sensation is intact to light touch saphenous, michelle,l superficial peroneal, deep peroneal and tibial distributions. Calves are soft and supple. Vital Signs Temp Pulse Resp BP Pulse Ox 98.4 F 78 18 120/54 L 98 06/14/18 14:35 06/14/18 14:35 06/14/18 14:35 06/14/18 14:35 06/14/18 14:35 Oxygen Flow Rate (L/min) 2 Oxygen Delivery Method Nasal Cannula Weight: 159 lb 13.362 oz Body Mass Index (BMI) 31.1 Intake and Output for Last 24 Hours 06/12/18 06/13/18 06/14/18 23:59 23:59 23:59 Intake Total 1989 Output Total 200 / 200 1325 / 1325 Balance -200 / -200 665 / 665 Laboratory Tests Past 24 Hrs 06/14/18 06/14/18 06/14/18 05:34 05:34 05:34 WBC 10.1 RBC 3.19 L Hgb 10.5 L Hct 31.7 L MCV 99.4 H MCH 32.9 H MCHC 33.1 RDW 13.5 RDW Differential 46.1 H Plt Count 234 MPV 9.5 Immature Gran % (Auto) 0.100 Neut % (Auto) 75.1 H Lymph % (Auto) 14.9 L [place] % (Auto) 9.2 Eos % (Auto) 0.4 Baso % (Auto) 0.3 Absolute Neuts (auto) 7.6 Absolute Lymphs (auto) 1.50 Total Counted Not Reportable Sodium 141 Potassium 4.5 Chloride 105 Carbon Dioxide 28.0 Anion Gap 8 BUN 20 H Creatinine 0.66 Estim Creat Clear Calc 31.69 Est GFR (MDRD) Af Amer 111 Est GFR (MDRD) Non-Af 92 BUN/Creatinine Ratio 30.4 H Glucose 109 H Calcium 9.2 Blood Type AB NEGATIVE Antibody Screen NEGATIVE Assessment/Plan All Active Problems Fracture, intertrochanteric, right femur (Acute) Fall (Acute) Right comminuted unstable intertrochanteric hip fracture. Natural history of the disease process and treatment options were discussed the patient. Patient did previously walk with a walker and live on her own in an assisted living setting. Based on her current health recommended cephalo-medullary nail. Risks and benefits of procedure were discussed the patient including but not limited to blood loss, DVTs, PEs, neurovascular damage, infection, general risk of anesthesia including loss of life. We also discussed nonunion, malunion and screw cut out as well as hardware failure. Patient demonstrated understanding was able to sign for consent. Antibiotics on-call to the operating room. Patient has medical clearance. We will proceed to surgery tonight. [facility]E [facility] Office:
--- NOTE | 2018-06-14 19:06 | PCM.OPRPT ---
Report of Operation Date of Procedure: 06/14/18 Pre-Operative Diagnosis: Right hip comminuted trans-trochanteric intertrochanteric hip fracture Post-Operative Diagnosis: Right hip comminuted trans-trochanteric intertrochanteric hip fracture Surgery/Procedure Performed:: Right hip cephalo-medullary nail Description of Surgical Findings:: Stable hip reduction blue crabber: None Type of Anesthesia:: General Anesthesiologist: Bony Marie Special Medications: 2 g Ancef Specimen's removed: None Estimated Blood Loss (mL): 150 Fluids Replaced: 700 mL crystalloid Description of Procedure: Components used: 1. Sherman gamma nail 340 mm, 11mm 2. Sherman gamma lag screw 90mm 3. Woody gamma 42.5mm millimeter interlocking screw Brief history operative indications: 83-year-old female who fell at home and sustained a comminuted transfer trochanteric intertrochanteric fracture of her right hip. After extensive discussion including risk and benefits which include but are not limited to blood loss, PEs, DVTs, neurovascular damage, nonunions, malunions and screw cut out patient has elected to proceed with a right cephalo-medullary nail. Procedure: On the date of the procedure the patient's right hip was marked in the preoperative area and patient was taken back to the operating room. Anesthetic was administered and patient was transferred to the table were all bony prominence identified well-padded and the ipsilateral arm was placed across the chest. Patient was then translated down to the perineal post and the operative leg was placed in the boot while the nonoperative leg was lowered and secured. The operative leg was placed in traction and internal rotation and live fluoroscopy was used to verify adequate reduction. The operative leg was then prepped in a sterile fashion with chlorhexidine while the surgeon scrubbed. Upon reentering the room the operative extremity was draped in the standard orthopedic fashion. Skin incision was marked and a timeout was called. Everyone agreed upon the side, the site, the procedure be performed, patient's identity, and antibiotics given. Skin incision was made and the position of the entry guidepin was verified using live fluoroscopy. Once we were satisfied with our position the pin was advanced in the soft tissue protector was placed over the pin. The entry reamer was then advanced into the proximal portion of the femur. A guidewire was placed down the intramedullary canal and fluoroscopy was used to verify that the anterior cortex had not been breached distally as well as satisfactory distal positioning. We then used live fluoroscopy to verify the length of the nail and a Sherman gamma 340 m by 11 mm 125? hip nail was selected. The 12.5 mm reamer was then passed. The nail was then attached to the family reunification specialist and inserted into the intramedullary canal. The appropriate depth was verified and the skin incision for the lag screw was made. The lag screw guidepin was then placed under live fluoroscopy and when a satisfactory position was obtained the length of the screw was measured and the standard technique to drill for the lag screws was performed. The anti-rotation bar was used. At this time a 90 mm lag screw was selected with its corresponding compression screw. The lag screw was then passed and traction was left off the leg. The compression screw was then passed and the fracture was compressed. The final position of the lag screw was verified under fluoroscopy. Attention was then turned to the distal portion of the nail and a perfect tejon technique was used to locate the distal interlocking screw and a 42.5 mm distal interlocking screw was placed using this technique. Live fluoroscopy was used to verify the position of the interlocking screw and the final position of the hip components. Once we were satisfied with our positioning the wounds were copiously irrigated out with normal saline skin was closed with 2-0 Vicryl and tang for final skin closure. A sterile dressing was placed with Xeroform. Patient was then awakened by anesthesia transferred from the fracture table back to their hospital bed and transferred to the PACU for recovery. Postoperative plan: Patient will be partial weightbearing 50% for 6 weeks. Aspirin 325 mg twice a day for DVT prophylaxis with knee-high stockings. Follow up in the office in 2 weeks. Grafts/Implants Used: Sherman gamma nail - Complications None - Admit VTE Documentation VTE Present on Admission: No VTE Mechan Device Prophylaxis: SCD's, Knee High DEONDRE Hose, Thigh High DEONDRE Hose VTE Pharm Prophylaxis ordered?: Yes
[2018-06-14] MEDS: Docusate Sodium 100 MG Capsule 200 MG PO (21:12)
[2018-06-14] MEDS: Pravastatin 20 MG Tablet PO (21:12)
[2018-06-14] MEDS: Acetaminophen 325 MG Tablet 650 MG PO (21:12)
[2018-06-15] VITALS (9 sets, daily range): BP systolic 105–141; BP diastolic 44–63; PULSE 71–102; RESP 16–18; TEMP 36.7–37.5; O2SAT 93–97; BMI 31.2
[2018-06-15] MEDS: 0.9% Normal Saline 1,000 ML 75 ML IV (00:51)
[2018-06-15] MEDS: Enoxaparin 30 MG/0.3 ML Syringe SC (05:29)
[2018-06-15] MEDS: Acetaminophen 325 MG Tablet 650 MG PO (05:29)
[2018-06-15 06:51] LABS: Absolute Lymphocyte Count 1.29 X10^3/ul (0.83-4.51); Absolute Neutrophil Count 7.2 X10^3/uL (2.0-7.7); Basophil# 0.03 X10^3/uL; Basophil% 0.3 % (0-1); Eosinophil# 0.05 X10^3/uL; Eosinophils% 0.5 % (0-5); Hematocrit 28.7 % (37-47); Hemoglobin 9.3 g/dl (12.0-15.0); Lymphocyte # 1.29 X10^3/ul (4.0); Lymphocyte % 13.5 % (19-41); Mean Corp Hgb Conc 32.4 g/gl (32-36); Mean Corpuscular Hgb 30.8 pg (27.0-32.0); Mean Platelet Vol. 9.3 fl (6.2-12.0); Monocyte# 0.96 X10^3/uL; Monocyte% 10.1 % (0-10); Neutrophil # 7.19 X10^3/uL (2.7-7.7); Neutrophil % 75.5 % (47-70); POSITIVE COUNT NO; POSITIVE DIFFERENTIAL NO; POSITIVE MORPHOLOGY NO; Platelet Count 179 K/mm3 (150-450); RBC Distribution Width CV 13.5 % (11.6-14.6); RBC Distribution Width SD 45.9 fl (35.1-43.9); Red Blood Count 3.02 M/mm3 (4.2-5.4); White Blood Count 9.5 K/mm3 (4.4-11.0)
[2018-06-15 07:09] LABS: Anion Gap 9 (5-15); BUN 11 mg/dL (7-18); Calcium,Total 8.6 mg/dL (8.5-10.1); Chloride 108 mmol/L (98-107); Creatinine, Serum 0.48 mg/dL (0.55-1.02); EST Glomerular Filtration Rate 132 mL/min (>60); Est Glom Filt Rate - Afr Amer 160 mL/min (>60); Estimated Creatinine Clearance 31.69 ml/min; Glucose 108 mg/dL (74-106); Potassium 3.6 mmol/L (3.5-5.1); Sodium Level 141 mmol/L (136-145)
[2018-06-15] MEDS: Ipratropium/Albuterol Sulfate 3 ML AMPUL.NEB INHALATION ×3 (07:23→18:57)
--- NOTE | 2018-06-15 07:58 | PCM.PROGNOTE ---
Patient Problems: Active and Suspected Problems Fracture, intertrochanteric, right femur (Acute) Subjective: Chief complaint: Follow-up after admission for acute traumatic right comminuted intertrochanteric fracture of the right hip status post right hip cephalomedullary nail. Patient seen and examined. No acute events overnight. She mentioned that her right hip pain is around 4-5 out of 10 in severity, worsening upon movement or standing. Denied chest pain or shortness of breath. Her vital signs are stable. - Physical Exam General: Alert, Oriented x3, Cooperative, No apparent distress HEENT: Atraumatic, PERRLA, EOMI, Normocephalic Oral: Moist Mucosa, No Gingival or Mucosal Lesions/ Ulcerations Neck: Supple, No JVD, Negative Carotid Bruits, Trachea Midline, Thyroid Normal Size and Texture Lungs: Clear to auscultation, No rhonchi, No wheeze, No rales, Diminished Cardiovascular: Regular rate, Regular Rhythm, Normal S1, Normal S2, PMI Normal Abdomen: Bowel Sounds Present, Soft, Non Tender, Non-Distended, No Hepato-splenomegaly Extremities: No clubbing, No cyanosis, No edema Skin: No rashes, No breakdown Lymphatic: No Cervical, Supraclavicular, or Inguinal Adenopathy Neurological: Cranial nerves II-XII grossly intact, Motor Exam 5/5 strength throughout Psych/Mental Status: Normal Affect, Appropriate, Alert and oriented to time, place, person, mood and affect Vital Signs Temp Pulse Resp BP Pulse Ox 98.4 F 83 16 141/63 H 93 06/15/18 05:51 06/15/18 07:23 06/15/18 07:23 06/15/18 05:51 06/15/18 07:23 Oxygen Flow Rate (L/min) 2 Oxygen Delivery Method Nasal Cannula Weight: 159 lb 13.362 oz Body Mass Index (BMI) 31.1 Intake and Output for Last 24 Hours 06/13/18 06/14/18 06/15/18 23:59 23:59 23:59 Intake Total 4324 / 4324 675 / 675 Output Total 200 / 200 2450 / 2450 900 / 900 Balance -200 / -200 1874 / 1874 -225 / -225 Laboratory Tests Past 24 Hrs 06/15/18 06/15/18 06:35 06:35 WBC 9.5 RBC 3.02 L Hgb 9.3 L Hct 28.7 L MCV 95.0 MCH 30.8 MCHC 32.4 RDW 13.5 RDW Differential 45.9 H Plt Count 179 MPV 9.3 Immature Gran % (Auto) 0.100 Neut % (Auto) 75.5 H Lymph % (Auto) 13.5 L Loup % (Auto) 10.1 H Eos % (Auto) 0.5 Baso % (Auto) 0.3 Absolute Neuts (auto) 7.2 Absolute Lymphs (auto) 1.29 Total Counted Not Reportable Sodium 141 Potassium 3.6 Chloride 108 H Carbon Dioxide 24.0 Anion Gap 9 BUN 11 Creatinine 0.48 L Estim Creat Clear Calc 31.69 Est GFR (MDRD) Af Amer 160 Est GFR (MDRD) Non-Af 132 BUN/Creatinine Ratio 23.0 H Glucose 108 H Calcium 8.6 Medical Necessity - Tobacco Use Smoking Status: Never smoker Tobacco Use: Non-smoker Assessment/Plan All Active Problems Fracture, intertrochanteric, right femur (Acute) Fall (Acute) This is an 83 years old female patient presented to the emergency room because of mechanical fall, found to have comminuted intertrochanteric fracture of the right hip and she underwent surgical repair with right hip cephalomedullary nail. #1 acute traumatic comminuted intertrochanteric fracture of the right hip: Status post right hip cephalomedullary nail, postoperative day 1. She is on IV morphine and OxyIR as needed for pain, pain is not well controlled. Her vital signs are stable. Repeat routine blood work revealed hemoglobin of 9.3 g/dL, otherwise unremarkable. Orthopedic surgery is managing. Plan for OT PT evaluation and treatment. #2 postoperative anemia: Likely because of blood loss during surgery as well as hemodilution. Baseline hemoglobin is normal. Today's hemoglobin is 9.3 g/dL. Plan to DC IV fluids, encourage oral intake, repeat CBC tomorrow morning. No indication for blood transfusion. #3 leukocytosis: Likely stress-induced. Resolved, patient is afebrile. No evidence of infection. #4 hypertension: Blood pressure stable, continue losartan and HCTZ. #5 hyperlipidemia: Continue statins. #6 depression: Continue Zoloft. #7 DVT prophylaxis: This note was generated with Movatuation software. It may contain incorrect words, spelling, and punctuation that were not noted in checking the note before signing. Code Visit Inpatient E&M: 46714 Subs Hosp L2
[2018-06-15] MEDS: Gabapentin 300 MG Capsule PO (08:18)
[2018-06-15] MEDS: Aspirin E.C. 81 MG Tablet PO (08:18)
[2018-06-15] MEDS: Sertraline 50 MG Tablet PO (08:22)
[2018-06-15] MEDS: Polyethylene Glycol 3350 17 GM PACKET PO (08:22)
[2018-06-15] MEDS: oxyCODONE 5 MG Tablet PO ×3 (08:24→21:42)
[2018-06-15] MEDS: Calcium Carb/Vitamin D 1 TABLET Tablet 2 TABLET PO (08:25)
[2018-06-15] MEDS: hydroCHLOROthiazide 25 MG Tablet PO (08:25)
[2018-06-15] MEDS: Losartan Potassium 100 MG Tablet PO (09:09)
--- NOTE | 2018-06-15 13:23 | CASEMGMT ---
LW/POA documents on physical chart. RICHIE Neff, JIG MILL OPERATOR
--- NOTE | 2018-06-15 13:24 | CASEMGMT ---
Pt had surgery yesterday. SW called [facility], message left for Cuca, and updates faxed. SW will continue to follow. RICHIE Neff, MOLD TOOLING TECHNICIAN
--- NOTE | 2018-06-15 16:44 | PCM.PN.ORT ---
Patient Problems: Active and Suspected Problems Fracture, intertrochanteric, right femur (Acute) Subjective: Patient is doing well. No new complaints. Overall she continues to complain of right hip and right knee pain. No chest pain or shortness of breath. Calf pain. - Physical Exam General: Alert, Oriented x3, Cooperative Extremities: - - Right lower extremity: Dressing is clean dry and intact Sensations intact to light touch saphenous, sural, superficial peroneal, deep peroneal, and tibial distributions Motors intact EHL, DF, PF calves are soft and supple Vital Signs Temp Pulse Resp BP Pulse Ox 98.2 F 77 16 132/60 H 96 06/15/18 11:50 06/15/18 13:18 06/15/18 13:18 06/15/18 11:50 06/15/18 11:50 Oxygen Flow Rate (L/min) 2 Oxygen Delivery Method Room Air Weight: 159 lb 13.362 oz Body Mass Index (BMI) 31.1 Intake and Output for Last 24 Hours 06/13/18 06/14/18 06/15/18 23:59 23:59 23:59 Intake Total 4324 / 4324 675 / 675 Output Total 200 / 200 2450 / 2450 900 / 900 Balance -200 / -200 1874 / 1874 -225 / -225 Laboratory Tests Past 24 Hrs 06/15/18 06/15/18 06:35 06:35 WBC 9.5 RBC 3.02 L Hgb 9.3 L Hct 28.7 L MCV 95.0 MCH 30.8 MCHC 32.4 RDW 13.5 RDW Differential 45.9 H Plt Count 179 MPV 9.3 Immature Gran % (Auto) 0.100 Neut % (Auto) 75.5 H Lymph % (Auto) 13.5 L Foster % (Auto) 10.1 H Eos % (Auto) 0.5 Baso % (Auto) 0.3 Absolute Neuts (auto) 7.2 Absolute Lymphs (auto) 1.29 Total Counted Not Reportable Sodium 141 Potassium 3.6 Chloride 108 H Carbon Dioxide 24.0 Anion Gap 9 BUN 11 Creatinine 0.48 L Estim Creat Clear Calc 31.69 Est GFR (MDRD) Af Amer 160 Est GFR (MDRD) Non-Af 132 BUN/Creatinine Ratio 23.0 H Glucose 108 H Calcium 8.6 Medical Necessity - Tobacco Use Smoking Status: Never smoker Tobacco Use: Non-smoker Assessment/Plan All Active Problems Fracture, intertrochanteric, right femur (Acute) Fall (Acute) Postop day 1 cephalo-medullary nail right hip 1. PT: Partial weightbearing right lower extremity 2. DVT prophylaxis per primary service 3. Pain control: Pain is well controlled currently pain control per primary service. 4. Anemia: due to fracture blood loss and intraoperative blood loss. 5. Disposition: Per primary service when medically stable. From orthopedic standpoint patient will likely need skilled rehabilitation or nursing facility upon discharge. She currently lives in assisted living. [facility] Office:
[2018-06-15] MEDS: Pravastatin 20 MG Tablet PO (21:42)
[2018-06-16] MEDS: Morphine 2 MG/ML Syringe IV
[2018-06-16 02:38] VITALS: BP 104/59; PULSE 93; RESP 18; TEMP 37.1; O2SAT 93
[2018-06-16] MEDS: oxyCODONE 5 MG Tablet PO ×2 (02:42→08:35)
[2018-06-16 02:48] VITALS: PULSE 94; RESP 18; O2SAT 93
[2018-06-16] MEDS: Enoxaparin 30 MG/0.3 ML Syringe SC (05:34)
[2018-06-16] MEDS: Acetaminophen 325 MG Tablet 650 MG PO ×2 (05:34→12:39)
[2018-06-16 06:33] VITALS: PULSE 83; RESP 18; O2SAT 92
[2018-06-16] MEDS: Ipratropium/Albuterol Sulfate 3 ML AMPUL.NEB INHALATION ×2 (06:33→12:37)
[2018-06-16 08:17] LABS: Absolute Neutrophil Count 7.1 X10^3/uL (2.0-7.7); Basophil% 0.5 % (0-1); Eosinophils% 2.1 % (0-5); Hemoglobin 8.4 g/dl (12.0-15.0); Lymphocyte % 16.5 % (19-41); Mean Corp Hgb Conc 32.3 g/gl (32-36); Mean Corpuscular Hgb 30.8 pg (27.0-32.0); Mean Corpuscular Volume 95.2 fL (81-99); Mean Platelet Vol. 9.5 fl (6.2-12.0); Monocyte% 9.6 % (0-10); Neutrophil # 7.11 X10^3/uL (2.7-7.7); Neutrophil % 71.2 % (47-70); Platelet Count 175 K/mm3 (150-450); RBC Distribution Width CV 12.9 % (11.6-14.6); RBC Distribution Width SD 42.6 fl (35.1-43.9); Red Blood Count 2.73 M/mm3 (4.2-5.4)
[2018-06-16 08:18] LABS: Absolute Lymphocyte Count 1.65 X10^3/ul (0.83-4.51); Basophil# 0.05 X10^3/uL; Eosinophil# 0.21 X10^3/uL; Lymphocyte # 1.65 X10^3/ul (4.0); Monocyte# 0.96 X10^3/uL; POSITIVE COUNT NO; POSITIVE DIFFERENTIAL NO; POSITIVE MORPHOLOGY NO
[2018-06-16 08:30] VITALS: BP 120/87; PULSE 108; RESP 16; TEMP 36.9; O2SAT 92
[2018-06-16] MEDS: Calcium Carb/Vitamin D 1 TABLET Tablet 2 TABLET PO (08:35)
[2018-06-16] MEDS: Aspirin E.C. 81 MG Tablet PO (08:35)
[2018-06-16] MEDS: Gabapentin 300 MG Capsule PO (08:35)
[2018-06-16] MEDS: Polyethylene Glycol 3350 17 GM PACKET PO (08:36)
[2018-06-16] MEDS: hydroCHLOROthiazide 25 MG Tablet PO (08:36)
[2018-06-16] MEDS: Sertraline 50 MG Tablet PO (08:36)
--- NOTE | 2018-06-16 09:59 | PCM.TXEXTCAR ---
- Diet 06/14/18 22:58 Diet: Regular Diet Is pt able to select menu?: Yes - Routine Orders/Code Status Routine Lab Work: CBC - Wound(s) RT HIP Wound Type: Surgical Incision Dressing Change: Dry Sterile Dressing - Suggestions for Active Care Change Position every (hours): 3 Hours to sit in a chair: 2 Times a day to sit in chair: 3 - Therapies Weight Bearing: Partial weight bearing Physical Therapy: Eval and Treat Occupational Therapy: Eval and Treat - Allergies/Procedures Done in Hospital Allergies/Adverse Reactions: Allergies iodine Allergy (Verified 06/13/18 09:08) Rash COUGH SYRUP W/IODINE Allergy (Uncoded 06/13/18 09:08) Rash - Type of Care/Length of Stay Estimated LOS: Convalescent Care Less Than 30 days Type of Care Needed: Skilled Rehab Potential: Fair Prognosis: Fair - Additional Orders/Day of Discharge Additional Orders: 1. Use subcu Lovenox daily for DVT prophylaxis for 2 weeks. 2. Repeat CBC in 5 days as ordered. H&P will serve as current which was dated: 06/13/18 Day of Discharge: 06/16/18 - Follow Up Care Primary Care Physician: Jovan Diez Chi, MD [Primary Care Provider] - Please follow up with your Primary Care Physician in: 1 WEEK. Please Follow Up With: Bryce Montez MD When: please call his office.
[2018-06-16] MEDS: Losartan Potassium 100 MG Tablet PO (10:22)
--- NOTE | 2018-06-16 10:23 | PCM.PN.ORT ---
Patient Problems: Active and Suspected Problems Fracture, intertrochanteric, right femur (Acute) Subjective: The patient was sitting in bedside chair upon examination. Patient denies any chest pain, shortness of breath, dizziness, lightheadedness, nausea or vomiting, or calf pain. Pain is controlled on medications. No adverse overnight events. Patient does report some pain in the lower right leg and right hip. Patient states the plan is for her to go to [facility] upon discharge. Objective: Vital signs stable and afebrile. Patient is able to plantarflex and dorsiflex actively. Sensation is intact to light touch to saphenous, sural, superficial and deep peroneal, and tibial distribution. Dressings are clean dry and intact. Negative Homans bilaterally, negative signs and symptoms of DVT. - Physical Exam General: Alert, Oriented x3, Cooperative, No apparent distress Vital Signs Temp Pulse Resp BP Pulse Ox 98.5 F 108 H 16 120/87 H 92 06/16/18 08:30 06/16/18 08:30 06/16/18 08:30 06/16/18 08:30 06/16/18 08:30 Oxygen Flow Rate (L/min) 2 Oxygen Delivery Method Room Air Weight: 72.5 kg Body Mass Index (BMI) 31.1 Intake and Output for Last 24 Hours 06/14/18 06/15/18 06/16/18 23:59 23:59 23:59 Intake Total 4324 / 4324 675 / 675 310 / 310 Output Total 2450 / 2450 900 / 900 200 / 200 Balance 1874 / 1874 -225 / -225 110 / 110 Laboratory Tests Past 24 Hrs 06/16/18 06:22 WBC 10.0 RBC 2.73 L Hgb 8.4 L Hct 26.0 L MCV 95.2 MCH 30.8 MCHC 32.3 RDW 12.9 RDW Differential 42.6 Plt Count 175 MPV 9.5 Immature Gran % (Auto) 0.100 Neut % (Auto) 71.2 H Lymph % (Auto) 16.5 L Calloway % (Auto) 9.6 Eos % (Auto) 2.1 Baso % (Auto) 0.5 Absolute Neuts (auto) 7.1 Absolute Lymphs (auto) 1.65 Total Counted Not Reportable Medical Necessity - Tobacco Use Smoking Status: Never smoker Tobacco Use: Non-smoker Assessment/Plan All Active Problems Fracture, intertrochanteric, right femur (Acute) Fall (Acute) 1. S/P cephalo-medullary nail right hip POD #2 2. Continue Pain Medications: Tylenol and OxyIR 3. DVT Prophylaxis: DVT prophylaxis per primary service 4. PT/OT: 50% weightbearing right lower extremity ?6 weeks 5. H & H: 8.4/26.0, asymptomatic 6. Encouraged Incentive Spirometry 7. Continue postoperative medical management per medicine: Appreciate assistance with patient postoperatively and discharge 8. Disposition: Orthopedically stable, plan is for discharge to correction facility when medically stable. Patient will need to schedule follow-up with [facility] with Dr. Rakesh Montez in 12 days for x-rays and suture removal. Continue pain medications as prescribed above and DVT prophylaxis. Orthopedics will be signing off of case, please contact if any questions or concerns.
--- NOTE | 2018-06-16 10:39 | CASEMGMT ---
Pt is ready for discharge today. Cuca from [facility] did leave a message and said they can take pt in the shelter facility today. KRISTEN completed the hospital exemption in [place], faxed this with all discharge instructions to [facility], schedule II meds sent to [facility]. SW spoke w/pt, she is agreeable to discharge today to [facility] after lunch, would like SW to let both her brother and sister know the time. KRISTEN set up a 1pm ambulance w/[facility] [place] ([facility] not available until 3pm). KRISTEN let pt's sister Elvira Fry know time, KRISTEN called pt's brother Simone Samano, left a message for him letting him know the time, SW let pt, pt's RN here, and Cuca at [facility] know time of 1pm. No further needs at this time, pt to [facility] today. RICHIE Neff, LOAD OUT WORKER
[2018-06-16 12:37] VITALS: PULSE 93; RESP 18
--- NOTE | 2018-06-16 12:59 | NURSING ---
report called to Erinn at [facility]
[2018-06-16 13:05] VITALS: BP 114/64; PULSE 102; RESP 18; TEMP 36.8; O2SAT 95
--- NOTE | 2018-06-16 14:43 | PCM.DC.SUM ---
Discharge Date and Diagnosis Date of Admission: 06/13/18 Date of Discharge: 06/16/18 - Primary Discharge Diagnosis #1 acute traumatic comminuted intertrochanteric fracture of the right hip, status post right hip cephalomedullary nail. #2 postoperative anemia, no blood transfusion required. #3 reactive leukocytosis without evidence of infection. - Secondary Discharge Diagnosis Chronic Problems Macular degeneration (Chronic) Spinal stenosis (Chronic) Fibromyalgia (Chronic) Urine incontinence (Chronic) HLD (hyperlipidemia) (Chronic) HTN (hypertension) (Chronic) Hospital Course and Treatment Imaging Results: Clinical Impression(s) from Imaging Studies Brain CT 06/13/18 09:25 IMPRESSION: Chronic involutional changes of the brain. Electronically Signed: Ap Preciado MD at 10:28 EDT Tel [phone], Service support , Hip/Pelvis X-Ray 06/13/18 10:45 IMPRESSION: Comminuted intertrochanteric fracture of the right hip. Electronically Signed: Miguel Mancilla, at 11:40 EDT Tel , Service support , Chest X-Ray 06/13/18 11:11 IMPRESSION: No acute cardiopulmonary process. Suspected underlying COPD. Correlate smoking history. Electronically Signed: Miguel Mancilla, at 12:20 EDT Tel , Service support , Femur X-Ray 06/14/18 18:20 Summary of Care Provided: Patient seen and examined on the day of discharge and appeared to be stable to be discharged to intermediate facility. She mentioned that her right hip pain is well controlled. Her vital signs are stable. - Physical Exam General: Alert, Oriented x3, Cooperative, No apparent distress HEENT: Atraumatic, PERRLA, EOMI, Normocephalic Oral: Moist Mucosa, No Gingival or Mucosal Lesions/ Ulcerations Neck: Supple, No JVD, Negative Carotid Bruits, Trachea Midline, Thyroid Normal Size and Texture Lungs: Clear to auscultation, No rhonchi, No wheeze, No rales, Diminished Cardiovascular: Regular rate, Regular Rhythm, Normal S1, Normal S2, PMI Normal Abdomen: Bowel Sounds Present, Soft, Non Tender, Non-Distended, No Hepato-splenomegaly Extremities: No clubbing, No cyanosis, No edema Skin: No rashes, No breakdown Lymphatic: No Cervical, Supraclavicular, or Inguinal Adenopathy Neurological: Cranial nerves II-XII grossly intact, Motor Exam 5/5 strength throughout Psych/Mental Status: Normal Affect, Appropriate, Alert and oriented to time, place, person, mood and affect Hospital course: The patient is a 83 year old F admitted because of mechanical fall, found to have acute comminuted fracture of the right hip. She underwent surgical repair with right hip cephalomedullary nail. Her postoperative course complicated by postoperative anemia. Her hemoglobin came down from 12 g/dL down to 8.4 g/dL and this is attributed to blood loss during surgery as well as hemodilution. There was no indication for blood transfusion. On admission, she was found to have leukocytosis which is attributed to stress and surgery. There was no evidence of infection. Chest x-ray and urinalysis was unremarkable. After surgery, patient did very well, her vital signs stable. Patient was discharged to intermediate facility in stable medical condition, discharged on OxyIR as well as tramadol as needed for pain, discharged on stool softeners and laxatives, discharged on Lovenox 30 mg subcu daily for DVT prophylaxis for 2 weeks, continued on her chronic home medication without any changes, plan to follow-up with orthopedic surgery as outpatient according to Dr. Montez's recommendation, order given to repeat CBC in 5 days, follow-up with PCP in 1 week. Home Medications: Medications to take at Discharge Aspirin E.C. [Ecotrin] 81 mg PO DAILY@0800 01/15/17 Calcium Carbonate/Vitamin D3 [Caltrate 600 Plus D3 Tablet] 2 each PO DAILY 01/15/17 Gabapentin [Neurontin] 300 mg PO DAILY 01/15/17 Gluc Ko/Chondro Ko A/Vit C/Mn [Glucosamine 1,500 Complex Cp] 2 each PO DAILY 01/15/17 Losartan/Hydrochlorothiazide [Losartan-Hctz 100-25 mg Tab] 1 tab PO DAILY 01/15/17 Meloxicam [Mobic] 15 mg PO DAILY 01/15/17 Multivit-Min/Iron/Folic/Lutein [Centrum Silver Women Tablet] 1 each PO DAILY 01/15/17 Pravastatin Sodium 20 mg PO QHS 01/15/17 Sertraline HCl [Zoloft] 50 mg PO DAILY 01/15/17 traMADol [Ultram] 50 mg PO Q4H PRN PRN 01/15/17 Vit C/E/Zn/Coppr/Lutein/Zeaxan [Preservision Areds 2 Softgel] 2 each PO DAILY 10/14/17 Docusate Sodium [Colace] 100 mg PO BID #30 cap 06/16/18 Enoxaparin [Lovenox] 30 mg SC DAILY@0600 #14 syringe 06/16/18 Magnesium Hydroxide [Milk Of Magnesia] 30 ml PO DAILY PRN PRN #14 udc 06/16/18 Oxycodone [Oxyir] 5 mg PO Q6H PRN PRN 7 Days #30 tab 06/16/18 Following Prescrptions Were Given to Patient: Oxycodone [Oxyir] 5 mg PO Q6H PRN PRN 7 Days #30 tab PRN Reason: Moderate Pain (pain scale 4-5) Enoxaparin [Lovenox] 30 mg SC DAILY@0600 #14 syringe Magnesium Hydroxide [Milk Of Magnesia] 30 ml PO DAILY PRN PRN #14 udc PRN Reason: Constipation Docusate Sodium [Colace] 100 mg PO BID #30 cap Primary Care Physician: Jovan Diez Chi, MD [Primary Care Provider] - Please follow up with your Primary Care Physician in: 1 WEEK. Please Follow Up With: Bryce Montez MD When: please call his office. Disposition: Alf facility Minutes spent on discharge:: 32 Patient Condition:: Stable Medical Necessity - Tobacco Use Smoking Status: Never smoker Tobacco Use: Non-smoker Meaningful Use Info Meaningful Use Diagnoses (Choose all that apply): None applicable Code Visit Inpatient E&M: 70518 Disch Hosp
== END 2018-06-16 13:05 | disposition skilled nursing facility (03) | DRG 481 ==
LOC: ED 10:02 → MS2 11:54
PROVIDERS: Specialist; Admitting Provider Family Medicine; Emergency Provider Emergency Medicine; Family Provider Family Medicine Geriatric Medicine; PCP Family Medicine Geriatric Medicine; Visit Provider Hospitalist
PROC: 0QS636Z Reposition Right Upper Femur with Intramedullary Internal Fixation Device, Percutaneous Approach (ICD-10-PCS; CPT 27245; principal; 2018-06-14 07:00)
DX: S72.141A Displaced intertrochanteric fracture of right femur, initial encounter for closed fracture (principal); D62 Acute posthemorrhagic anemia; W01.0XXA Fall on same level from slipping, tripping and stumbling without subsequent striking against object, initial encounter; Y92.091 Bathroom in other non-institutional residence as the place of occurrence of the external cause; H35.30 Unspecified macular degeneration; M79.7 Fibromyalgia; M48.00 Spinal stenosis, site unspecified; R32 Unspecified urinary incontinence; E78.5 Hyperlipidemia, unspecified; I10 Essential (primary) hypertension; E87.6 Hypokalemia
CPT/HCPCS: 36415; 51702; 70450; 71045; 73502; 73552; 76000; 80048; 81001; 83036; 83735; 84443; 85025; 86850; 86900; 93005; 94640; 97162; 97166; 99285; C1776; J7030; A4216

== ENCOUNTER → 2018-08-03 08:55 | Outpatient (CLI) | payer MEDICARE, OTHER, SELFPAY ==
--- NOTE | 2018-08-03 09:25 | BD_ITS ---
STUDY: DUAL ENERGY X-RAY ABSORPTIOMETRY / DXA REASON FOR EXAM: Female, 83 years old. Postmenopausal screening TECHNIQUE: Bone Mineral Density (BMD) measurements of lumbar spine and left hip were obtained. COMPARISON: 2013 FINDINGS: Lumbar Spine (L1-L4): g/cm2 (1.021) / T-score (-1.2) / Z-score (0.7) Findings are suggestive of osteopenia with a moderate fracture risk. Left Femur Total: g/cm2 (0.736) / T-score -2.2) / Z-score (-0.1) Left Femoral Neck: g/cm2 (0.641) / T-score (-2.9) / Z-score (-0.6) The T-Scores on the most recent prior examination were: Lumbar Spine (L1-L4): There has been worsening of bone density since the previous examination. BD/Dexa Bone Density Study IMPRESSION: The patient is considered osteopenic as outlined below according to World Beny Organization (WHO) criteria with a moderate fracture risk. There has been worsening of bone density since the previous examination. Reference Information: The T-score is the number of standard deviations above or below the standard which is normal for young adults at their peak bone mineral density. The World Health Organization (WHO) interprets the T-scores as follows: Above -1 Normal bone density Between -1 and -2.5 Osteopenia Equal to / or below -2.5 Osteoporosis As a practical clinical guideline, osteopenia may be graded as follows: Mild -1 through -1.5 Moderate -1.6 through -2.0 Severe -2.1 through -2.4 The Z-score is the number of standard deviations above or below age-matched controls. A Z-score of less than -1.5 would be considered abnormal. References: 1. NIH Osteoporosis and Related Bone Diseases http://www.osteo.org 2. International Society for Clinical Densitometry http://www.iscd.org 3. National Osteoporosis Foundation http://www.nof.org Electronically Signed: Tono Schroeder MD at 10:20 EDT , Service support ,
== END ==
PROVIDERS: Family Provider Family Medicine Geriatric Medicine; PCP Family Medicine Geriatric Medicine; Referring Provider Specialist; Visit Provider Specialist
DX: S72.141D Displaced intertrochanteric fracture of right femur, subsequent encounter for closed fracture with routine healing (principal); N95.9 Unspecified menopausal and perimenopausal disorder
CPT/HCPCS: 77080

== ENCOUNTER → 2018-09-06 15:37 | Outpatient (CLI) | payer OTHER, MEDICARE, SELFPAY ==
[2018-09-06 19:14] LABS: Hematocrit 34.2 % (37-47); Hemoglobin 10.5 g/dl (12.0-15.0); Mean Corp Hgb Conc 30.7 g/gl (32-36); Mean Corpuscular Hgb 28.2 pg (27.0-32.0); Mean Corpuscular Volume 91.7 fL (81-99); RBC Distribution Width CV 15.4 % (11.6-14.6); RBC Distribution Width SD 51.6 fl (35.1-43.9); Red Blood Count 3.73 M/mm3 (4.2-5.4); White Blood Count 8.7 K/mm3 (4.4-11.0)
[2018-09-06 19:15] LABS: Absolute Lymphocyte Count 2.56 X10^3/ul (0.83-4.51); Basophil# 0.07 X10^3/uL; Basophil% 0.8 % (0-1); Eosinophil# 0.28 X10^3/uL; Eosinophils% 3.2 % (0-5); Lymphocyte # 2.56 X10^3/ul (4.0); Lymphocyte % 29.4 % (19-41); Mean Platelet Vol. 9.9 fl (6.2-12.0); Monocyte# 0.76 X10^3/uL; Monocyte% 8.7 % (0-10); Neutrophil # 5.03 X10^3/uL (2.7-7.7); Neutrophil % 57.8 % (47-70); POSITIVE COUNT NO; POSITIVE DIFFERENTIAL NO; POSITIVE MORPHOLOGY NO; Platelet Count 344 K/mm3 (150-450)
== END ==
PROVIDERS: Family Provider Family Medicine Geriatric Medicine; PCP Family Medicine Geriatric Medicine; Referring Provider Family Medicine Geriatric Medicine; Visit Provider Family Medicine Geriatric Medicine
DX: D50.9 Iron deficiency anemia, unspecified (principal)
CPT/HCPCS: 36415; 85025

== ENCOUNTER → 2018-11-08 15:49 | Outpatient (CLI) | payer MEDICARE, OTHER, SELFPAY ==
[2018-06-14 16:07] VITALS: BMI 31.1
[2018-11-08 17:22] LABS: Basophil# 0.08 X10^3/uL
[2018-11-08 17:48] LABS: Vitamin D,25 Hydroxy 43.2 ng/mL (29.95-100.01)
[2018-11-08 17:50] LABS: ALB/GLOB Ratio 0.9 RATIO (0.9-2.4); AST(SGOT) 28 U/L (15-37); Alanine Aminotransfer ALT/SGPT 31 U/L (13-56); Albumin, Serum 3.4 g/dL (3.2-5.0); Alkaline Phosphatase 124 U/L (45-117); Anion Gap 9 (5-15); BUN 20 mg/dL (7-18); BUN/Creat Ratio 23.2 RATIO (10-20); Calcium,Total 9.5 mg/dL (8.5-10.1); Chloride 103 mmol/L (98-107); Creatinine, Serum 0.86 mg/dL (0.55-1.02); EST Glomerular Filtration Rate 67 mL/min (>60); Est Glom Filt Rate - Afr Amer 81 mL/min (>60); Globulin 3.8 g/dL (2.2-4.2); Glucose 96 mg/dL (74-106); Potassium 3.8 mmol/L (3.5-5.1); Protein, Total 7.2 g/dL (6.4-8.2); Sodium Level 137 mmol/L (136-145); Thyroid Stim Hormone (TSH) 1.49 uIU/mL (0.358-3.74)
[2018-11-08 18:41] LABS: White Blood Count 7.6 K/mm3 (4.4-11.0)
[2018-11-08 18:42] LABS: Hematocrit 35.4 % (37-47); Hemoglobin 11.7 g/dl (12.0-15.0); Mean Corp Hgb Conc 33.1 g/gl (32-36); Mean Corpuscular Hgb 31.9 pg (27.0-32.0); Mean Corpuscular Volume 96.5 fL (81-99); Neutrophil % 60.6 % (47-70); POSITIVE COUNT NO; POSITIVE DIFFERENTIAL NO; POSITIVE MORPHOLOGY NO; Platelet Count 287 K/mm3 (150-450); RBC Distribution Width CV 15.4 % (11.6-14.6); RBC Distribution Width SD 50.5 fl (35.1-43.9); Red Blood Count 3.67 M/mm3 (4.2-5.4)
[2018-11-08 18:43] LABS: Absolute Lymphocyte Count 2.13 X10^3/ul (0.83-4.51); Absolute Neutrophil Count 4.6 X10^3/uL (2.0-7.7); Eosinophil# 0.17 X10^3/uL; Eosinophils% 2.2 % (0-5); Lymphocyte # 2.13 X10^3/ul (4.0); Monocyte# 0.62 X10^3/uL; Monocyte% 8.1 % (0-10); Neutrophil # 4.61 X10^3/uL (2.7-7.7)
== END ==
PROVIDERS: Family Provider Family Medicine Geriatric Medicine; PCP Family Medicine Geriatric Medicine; Visit Provider Family Medicine Geriatric Medicine
DX: I10 Essential (primary) hypertension (principal); E55.9 Vitamin D deficiency, unspecified
CPT/HCPCS: 36415; 80053; 82306; 84443; 85025

== ENCOUNTER 2020-08-31 12:20 | Emergency (ER) | payer MEDICARE, OTHER, SELFPAY ==
[2020-08-31 12:21] VITALS: BP 148/69; PULSE 72; RESP 18; TEMP 37; O2SAT 97; BMI 34.9
--- NOTE | 2020-08-31 12:41 | CT_ITS ---
STUDY: CT BRAIN WITHOUT CONTRAST REASON FOR EXAM: Female, 85 years old. Fall hitting head, laceration head pain RADIATION DOSAGE (If Supplied By Facility): CTDIvol = ( 44.99 ) mGy, DLP = ( 796.11 ) mGycm TECHNIQUE: Transaxial CT imaging of the brain was performed without administration of intravenous contrast material. Individualized dose optimization techniques were used for this CT. COMPARISON: 13 June 2018 FINDINGS: There is no mass effect, acute intracranial hemorrhage, extra parenchymal fluid collections, hydrocephalus or herniation. There are mild scattered ill-defined periventricular and deep white matter hypodensities, similar to prior. The skull is intact. There is chronic postinflammatory right maxillary sinus appearance. CT/Brain/Head without Contrast IMPRESSION: 1. No acute intracranial injury. 2. Mild chronic white matter ischemic disease. Electronically Signed: Ashli Bond, at 13:16 EST Tel , Service support ,
--- NOTE | 2020-08-31 12:41 | CT_ITS ---
STUDY: CT CERVICAL SPINE WITHOUT CONTRAST REASON FOR EXAM: Female, 85 years old. Fall head trauma, neck pain after falling injury RADIATION DOSAGE (If Supplied By Facility): CTDIvol = ( 23.39 ) mGy, DLP = ( 436.60 ) mGycm TECHNIQUE: High resolution transaxial imaging was performed without contrast material. Sagittal and coronal images were reconstructed. Individualized dose optimization techniques were used for this CT. COMPARISON: None FINDINGS: Craniocervical junction is intact and aligned. There is mild reversal of cervical lordosis with grade 1 degenerative anterolisthesis of C3 on C4, C4 and C5 and C5 on C6, all less than 2 mm. There is minor degree of kyphosis centered on C6. Mineralization is normal without focal lesions. There is multilevel degenerative age-appropriate change at multiple discs, facets, endplates and uncinate joints. However, thecal sac is patent at all levels. There are multilevel various degree, mild, moderate and severe bilateral scattered foraminal stenoses. Severe stenosis is present on the right at C3-C4, and left at C4-C5. CT/Spine Cervical without Contras IMPRESSION: 1. No acute osseous injury. 2. Age-appropriate degenerative change. Electronically Signed: Ashli Bond, at 13:23 EST Tel , Service support ,
--- NOTE | 2020-08-31 13:09 | ED.VIS.FALL ---
History of Present Illness Informant: Patient Occurred: Today Mechanism/Context: Same level fall Fall from Height (ft): Standing Usually ambulates: Without assistance Location: Head Quality of Pain: Sharp Current Severity: Severe Maximum Severity: Severe Worsened by: Movement Relieved by: rest Associated Symptoms: Negative for: Parasthesias, Weakness, Loss of function, Inability to ambulate, Loss of consciousness, Amnesia Narrative: 85-year-old female presents after a mechanical fall. She tripped in the bathroom hit her head on the chair in the bathroom. No loss of consciousness. No prodromal symptoms. No nausea or vomiting. She is not lightheaded or dizzy. No other injuries. She is not anticoagulated. She is ambulatory. Tetanus Immunization: Unknown Prior similar symptoms: Yes Recent Illness/Hospitalization: No <Marquise Sheffield - Last Filed: 08/31/20 14:00> <Imelda Montoya - Last Filed: 08/31/20 22:11> Chief Complaint: Fall Past Medical History Prior records reviewed: Yes Past Medical History: - - Hypertension Surgical History: - - Tonsillectomy, appendectomy, total abdominal hysterectomy, repair of detached left retina, left cataract surgery, left carpal tunnel surgery. Lives: [facility] Smoking Status: Never smoker Alcohol: None Drugs: None - Family History Maternal Family History: Reports: - - Patient notes a maternal family history of colon cancer with metastatic disease to the liver. Paternal Family History: Reports: - - Patient notes internal family history of prostate cancer with metastatic disease to the bones. Sibling Family History: Reports: - - Patient notes a history of colon cancer as well as breast cancer in her sister who remains living. <Marquise Sheffield - Last Filed: 08/31/20 14:00> <Imelda Montoya - Last Filed: 08/31/20 22:11> - Allergies and Home Meds Allergies/Adverse Reactions: Allergies iodine Allergy (Verified 06/13/18 09:08) Rash COUGH SYRUP W/IODINE Allergy (Uncoded 06/13/18 09:08) Rash Primary Care Physician: Jovan Diez Chi, MD [Primary Care Provider] - 10 Day for suture removal Review of Systems All systems negative except as indicated General: Denies: Chills, Fever, Sweats Eyes: Denies: Visual changes - bilaterally, Diplopia ENT: Denies: Rhinorrhea, Sore throat Cardiovascular: Denies: Chest pain, Palpitations Respiratory: Denies: Dyspnea, Cough, Dyspnea on exertion Gastrointestinal: Denies: Abdominal pain, Nausea, Vomiting, Diarrhea, Melena, Hematochezia Genitourinary: Denies: Dysuria, Hematuria, Frequency Musculoskeletal: Denies: Back pain, Extremity Pain Skin: Reports: Abrasions, Wounds. Denies: Rash, Abscess Neurological: Reports: Headache. Denies: Weakness, Parasthesia, Numbness <Marquise Sheffield - Last Filed: 08/31/20 14:00> Physical Exam Vital Signs/Narrative: Vital Signs Temp Pulse Resp BP Pulse Ox 08/31/20 12:21 98.6 F 72 18 148/69 H 97 Inital Vital Signs reviewed: Yes General: Well nourished, Well developed Head: Normocephalic, Atraumatic Eyes: Perrl, EOMI ENT: TM's clear, No hemotympanum or drainage, No trauma. Negative for: Hemotympanum, Otorrhea, Nasal trauma, Nasal septal hematoma Neck: Nontender, Full ROM. Negative for: Spinal Tenderness, Paraspinal Tenderness Cardiovascular: Regular rate, Regular rhythm, No murmurs Respiratory: No distress, CTA bilaterally, Chest nontender Abdomen: Soft, Nontender, Nondistended, Normal bowel sounds Back: Nontender Skin: Normal color, No rash, Trauma - 4 cm right temporal scalp laceration Neurological: Alert, Oriented x3, Cranial nerves II-XII grossly intact, Normal Strength, Normal Sensation, Normal Gait Psychological: Normal affect, Normal Mood <Marquise Sheffield - Last Filed: 08/31/20 14:00> Diagnostic/Tx/Re-eval Impressions Brain CT 08/31/20 12:41 IMPRESSION: 1. No acute intracranial injury. 2. Mild chronic white matter ischemic disease. Electronically Signed: Ashli Bond at 13:16 EST Tel , Service support , Cervical Spine CT 08/31/20 12:41 IMPRESSION: 1. No acute osseous injury. 2. Age-appropriate degenerative change. Electronically Signed: Ashli Bond at 13:23 EST Tel , Service support , 08/31/20 12:41 Brain/Head without Contrast [CT] Stat CT Cervical [Spine Cervical without Contras] [CT] Stat - Medical Decision Making Patient presents with a nonfocal neurological exam and stable vital signs. CT brain and CT cervical spine unremarkable. Patient had a total of 12 rachelle used to approximate her wound. See procedure note. She tolerated well. Discussed proper wound care and signs of infection to monitor for and advised to have these removed in about 1 week. Will be discharged back to the assisted living. Return precautions given. She is agreeable plan of care and all questions answered. <Marquise Sheffield - Last Filed: 08/31/20 14:00> - Medical Decision Making Patient seen and evaluated with PJ. I agree with above. Patient had a mechanical fall and sustained a laceration to her right scalp. See procedure note for repair. Bleeding is stemmed with repair. She has a normal neurologic exam. Imaging does not show any acute intracranial process or fracture. Tetanus is updated. Patient is counseled on generalized wound care. She is given return precautions. <Imelda Montoya - Last Filed: 08/31/20 22:11> Procedures - Lacerations No standard instances Length: 1.57 in Depth: Skin Shape: Linear Prep: Sterile Conditions, Chlorhexadine Laceration Repair: Lidocaine with epi, Local, Wound explored Irrigated (ml): 60 - pressure wash via syringe Number of Sutures/Rachelle: 12 Suture Information: - - rachelle <Marquise Sheffield - Last Filed: 08/31/20 14:00> ED Disposition <Marquise Sheffield - Last Filed: 08/31/20 14:00> <Imelda Montoya - Last Filed: 08/31/20 22:11> - Plan for ED Patient: Disposition: Home or Assisted Living Diagnosis: Closed head injury, Scalp laceration Instructions: ED Head Injury Adult, ED Laceration Scalp Sutures or Rachelle Referrals: Jovan Diez Chi, MD [Primary Care Provider] - 10 Day for suture removal
[2020-08-31 13:41] VITALS: O2SAT 97
[2020-08-31] MEDS: Diphth,Pertuss(Acell),Tet Vac 0.5 ML Vial IM (14:10)
[2020-08-31 14:13] VITALS: BP 168/68; PULSE 75; RESP 16; O2SAT 96
--- NOTE | 2020-08-31 14:22 | ED.RN ---
report called to [facility], spoke with Mayda. Update given on patient's wound, test results and follow up care. She verbalizes understanding and denies any questions. Patient's cousin picked her up and is arriving back to [facility] by private car.
== END 2020-08-31 14:22 | disposition home or self-care (01) ==
PROVIDERS: Emergency Provider Physician Assistant Medical; PCP Family Medicine Geriatric Medicine
DX: S09.90XA Unspecified injury of head, initial encounter (principal); S01.01XA Laceration without foreign body of scalp, initial encounter; W01.10XA Fall on same level from slipping, tripping and stumbling with subsequent striking against unspecified object, initial encounter
CPT/HCPCS: 12001; 70450; 72125; 90471; 90715; 99285

== ENCOUNTER 2021-11-20 12:09 | Emergency (ER) | payer MEDICARE, OTHER, SELFPAY ==
[2021-11-20 12:10] VITALS: BP 145/69; PULSE 66; RESP 16; TEMP 36.3; O2SAT 96; BMI 36.3
--- NOTE | 2021-11-20 12:26 | CT_ITS ---
STUDY: CT CERVICAL SPINE WITHOUT CONTRAST REASON FOR EXAM: Female, 86 years old. Head injury RADIATION DOSAGE (If Supplied By Facility): CTDIvol = ( 24.06 ) mGy, DLP = ( 406.96 ) mGycm TECHNIQUE: High resolution transaxial imaging was performed without contrast material. Sagittal and coronal images were reconstructed. Individualized dose optimization techniques were used for this CT. COMPARISON: None FINDINGS: Normal craniovertebral junction. There are degenerative changes of the anterior atlantoaxial articulation. Normal odontoid process. Normal cervical lordosis. Normal vertebral bodies and posterior osseous elements. C2-3: Facet joint osteoarthritis and hypertrophy worse on the left side. Uncovertebral arthrosis. Mild degree of bilateral neural foraminal stenosis. C3-4: Facet joint osteoarthritis and hypertrophy worse on the left side. Uncovertebral arthrosis. Moderate to marked degree of right neural foraminal stenosis. C4-5: Marked degree of disc space narrowing. Spondylosis. Uncovertebral arthrosis. Facet joint osteoarthritis and hypertrophy. Moderate degree of bilateral neural foraminal stenosis. C5-6: Marked degree of disc space narrowing. Spondylosis. Uncovertebral arthrosis. Moderate degree of bilateral neural foraminal stenosis worse on the right side. C6-7: Marked degree of disc space narrowing with spondylosis. Uncovertebral arthrosis. Moderate degree of the right neural foraminal stenosis. C7-T1: Moderate degree of this space narrowing. Spondylosis. Bilateral neural foraminal stenosis. Normal visualized soft tissue structures. CT/Spine Cervical without Contras IMPRESSION: Multilevel degenerative changes, as described above. Electronically Signed: Ap Preciado MD at 13:12 EST ,
--- NOTE | 2021-11-20 12:26 | CT_ITS ---
STUDY: CT BRAIN WITHOUT CONTRAST REASON FOR EXAM: Female, 86 years old. Head injury RADIATION DOSAGE (If Supplied By Facility): CTDIvol = ( 44.99 ) mGy, DLP = ( 779.24 ) mGycm TECHNIQUE: Transaxial CT imaging of the brain was performed without administration of intravenous contrast material. Individualized dose optimization techniques were used for this CT. COMPARISON: Comparison is made with prior study dated 08/31/2020. FINDINGS: Normal soft tissue structures. Normal calvarium. There is mild cerebral atrophy with widening of the extra-axial spaces and ventricular dilatation. There are areas of decreased attenuation within the white matter tracts of the supratentorial brain, consistent with microvascular disease changes. Normal basal ganglia and thalami. Normal brainstem. Normal cerebellum. There is no intracranial hemorrhage. There are no findings of an acute ischemic infarction. Atherosclerotic calcification of the vertebral arteries and cavernous portions of the internal carotid arteries bilaterally. Partial opacification of the right maxillary sinus. Minimal mucosal thickening along the anterior medial aspect of the right sphenoid sinus. CT/Brain/Head without Contrast IMPRESSION: Chronic involutional changes of the brain. Electronically Signed: Ap Preciado MD at 13:10 EST ,
--- NOTE | 2021-11-20 12:27 | EDS_ITS ---
HPI HPI - Fall History of Present Illness Chief Complaint: Fall Informant: patient Narrative Narrative: Patient brought in for evaluation head injury prior to arrival. Patient lives in assisted living ambulates with a walker at baseline. States cleaning her place sweeping the bathroom floor when she stumbled falling forward hitting her head on the ground. Denies any loss of conscious. Per records appears to be on baby aspirin. No other anticoagulants. No neck or back pain. No extremity pain or paresthesias. Bleeding controlled with pressure. States her tetanus was in 2018 less than 5 years ago. No nausea or vomiting. Tetanus Immunization: <5 years PFSH [facility] Medical History Anemia Anxiety Depression Falls Hip fracture HTN (hypertension) Hyperlipidemia Hypokalemia Neck injury Osteoarthritis Wrist injury Home Medications aspirin 81 mg PO DAILY@0800 01/15/17 [History Last Taken Unknown] calcium carbonate-vitamin D3 [Caltrate with Vitamin D3] 2 ea PO DAILY 01/15/17 [History Last Taken Unknown] gabapentin [Neurontin] 300 mg PO DAILY 01/15/17 [History Last Taken 06/13/18 06:00] uxnlenphnch-ahbacxodk-dpb C-Mn 2 ea PO DAILY 01/15/17 [History Last Taken Unknown] losartan-hydrochlorothiazide 1 tab PO DAILY 01/15/17 [History Last Taken Unknown] meloxicam [Mobic] 15 mg PO DAILY 01/15/17 [History Last Taken Unknown] ytgshzmu-jzx-tfvo-FA-lutein [Centrum Silver Women] 1 ea PO DAILY 01/15/17 [History Last Taken Unknown] pravastatin 20 mg PO QHS 01/15/17 [History Last Taken Unknown] sertraline 50 mg PO DAILY 01/15/17 [History Last Taken Unknown] tramadol 50 mg PO Q4H PRN PRN 01/15/17 [History Last Taken 06/13/18 06:00] vit C,Z-Wm-ulhhc-lutein-zeaxan [PreserVision AREDS-2] 2 ea PO DAILY 10/14/17 [History Last Taken Unknown] docusate sodium 100 mg PO BID #30 cap 06/16/18 [Rx Last Taken Unknown] magnesium hydroxide 30 ml PO DAILY PRN PRN #14 udc 06/16/18 [Rx Last Taken Unknown] oxycodone 5 mg PO Q6H PRN PRN 7 Days #30 tab 06/16/18 [Rx Last Taken Unknown] diltiazem HCl 120 mg PO DAILY 11/20/21 [History Last Taken Unknown] Allergy/AdvReac Type Severity Reaction Status Date / Time iodine Allergy Rash Verified 06/13/18 09:08 COUGH SYRUP W/IODINE Allergy Rash Uncoded 06/13/18 09:08 Social History Smoking Status: Never smoker ROS ROS ED Constitutional Constitutional ED: Denies chills, fever(s) or sweats Eyes Eyes: Denies change in vision ENT ENT ED: Denies dysphagia or sore throat Cardiovascular Cardiovascular: Denies chest pain, leg edema, palpitations or racing heartbeat Respiratory/Chest Respiratory/Chest: Denies cough, dyspnea or dyspnea on exertion Gastrointestinal Gastrointestinal: Denies abdominal pain, diarrhea, nausea or vomiting Genitourinary Genitourinary ED: Denies dysuria, hematuria or urinary frequency Musculoskeletal Musculoskeletal: Denies back pain, extremity pain or neck pain Integumentary Reports other Details: Scalp laceration ; Denies rash or wounds Neurologic Neurologic: Denies headache(s), paresthesias or weakness EXAM Physical Exam Const Vital Signs: 11/20/21 12:10 11/20/21 12:13 Temperature 97.4 F L Temperature Source Temporal Pulse Rate 66 Respiratory Rate 16 Respiratory Effort Normal Respiratory Depth Normal Respiratory Pattern Normal Blood Pressure 145/69 H Blood Pressure Mean 94 Pulse Ox 96 Oxygen Delivery Method Room Air Room Air Oxygen Flow Rate (L/min) 96 Positive well nourished and well developed Constitutional Narrative: GCS 15 General Appearance ED: well developed and NAD HEENT Reports moist mucous membranes HEENT Narrative: 2.5 cm hematoma mid upper forehead scalp line, there was very superficial avulsion with no active bleeding superiorly, inferior aspect superficial tear with minimal bleeding controlled with pressure. No subcu exposure. No hemotympanum. normocephalic Eyes PERRL, EOMs intact bilaterally and conjunctivae normal General Eye ED: Yes normal appearance of both eyes Neck no lymphadenopathy and supple Neck Narrative: No step-offs. General: Negative for tenderness Chest Wall inspection of chest normal Chest Narrative: No chest wall tenderness. Chest: Negative for tenderness Resp normal respiratory effort and normal air movement Effort and Inspection: symmetric chest movement; Negative for respiratory distress Cardio regular rate, regular rhythm and no murmurs Peripheral Pulses: pulses 2+ throughout GI normal to inspection, nondistended, normoactive bowel sounds and non-tender Palpation: Negative for guarding or rebound tenderness present Back/Spine no CVA tenderness and no thoracic nor lumbar tenderness Cervical Spine: Negative for cervical spine tenderness Thoracic Spine / Upper Back: Negative for thoracic spinal tenderness Lumbar Spine / Lower Back: Negative for lumbar spinal tenderness Extremity normal to inspection and full ROM Extremity Narrative: Negative logroll bilateral extremities. No pain in upper extremities. Pulses intact x4. General Extremety ED: Negative for edema or tenderness General Extremity: Negative for edema Neuro oriented x3 and no sensory deficits noted Sensorium / Orientation: awake and alert Skin no rashes or lesions noted and no wounds Skin Narrative: See above MDM MDM MDM Narrative Medical decision making narrative: From trauma scans head and neck no acute p rocess. Patient hematoma she decreased on reevaluation, these were superficial abrasions with bleeding now controlled. There is no deep laceration that would be amenable to suturing. I did place Dermabond to avoid rebleeding. Evaluation of records, there was no tetanus updated or seen in the last 5 years. She had a hip fracture in 2018, she had a large scalp laceration 2020 however there is no tetanus given at that time. I discussed this with the patient. She agrees to obtaining tetanus today. This was ordered and given. She ambulates with a walker. No extremity pain or injuries on examination. Patient will discharge back to assisted living. Patient is being discharged under pandemic conditions under declared global, national and state disaster activation, with limited medical resources. Patient and community understands this. Results discussed in layman's terms to the patient satisfaction. All questions answered in layman's terms. Patient understands importance of follow-up care as directed. Patient has been instructed to return to the ED immediately if new symptoms, problems, or questions occur. We mutually agree with the plan of disposition. The patient understand that they may call or return with any questions or concerns at any time. Radiography Diagnostic Testing: Clinical Impression(s) from Imaging Studies Brain CT 11/20/21 12:26 IMPRESSION: Chronic involutional changes of the brain. Electronically Signed: Ap Preciado MD at 13:10 EST , Cervical Spine CT 11/20/21 12:26 IMPRESSION: Multilevel degenerative changes, as described above. Electronically Signed: Ap Preciado MD at 13:12 EST , Discharge Plan Triage Chief Complaint: Fall ED Provider: Brennon Montano Dx/Rx/DC Orders Clinical Impression: CHI (closed head injury), Contusion of scalp, Abrasion of face, Tetanus toxoid vaccination administered at current visit Instructions: ED Abrasion, ED Head Injury (Adult) Prescriptions: No Action meloxicam [Mobic] 15 MG tablet 15 mg PO DAILY RF: 0 aspirin 81 MG tablet 81 mg PO DAILY@0800 RF: 0 tramadol 50 MG tablet 50 mg PO Q4H PRN PRN (Reason: Pain) RF: 0 losartan-hydrochlorothiazide 1 EACH tablet 1 tab PO DAILY RF: 0 pravastatin 20 MG tablet 20 mg PO QHS RF: 0 gabapentin [Neurontin] 100 MG capsule 300 mg PO DAILY RF: 0 sertraline 50 MG tablet 50 mg PO DAILY RF: 0 qcfqilywzmx-kgvvocuwy-plb C-Mn 1 EACH capsule 2 ea PO DAILY RF: 0 oykobqbz-lnr-uacc-FA-lutein [Centrum Silver Women] 1 EACH tablet 1 ea PO DAILY RF: 0 calcium carbonate-vitamin D3 [Caltrate with Vitamin D3] 1 EACH tablet 2 ea PO DAILY RF: 0 vit C,H-Mn-vfdjf-lutein-zeaxan [PreserVision AREDS-2] 1 EACH capsule 2 ea PO DAILY RF: 0 magnesium hydroxide 30 ML suspension 30 ml PO DAILY PRN PRN (Reason: Constipation) Qty: 14 RF: 0 docusate sodium 100 MG capsule 100 mg PO BID Qty: 30 RF: 0 oxycodone 5 MG tablet 5 mg PO Q6H PRN PRN (Reason: Moderate Pain (pain scale 4-5)) 7 Days Qty: 30 RF: 0 diltiazem HCl 120 mg capsule,extended release 24hr 120 mg PO DAILY RF: 0 Primary Care Provider: Jovan Diez Chi Referrals: Jovan Diez Chi, MD [Primary Care Provider] - 1 Week Disposition Disposition: Home, Self Care Discharge Date/Time: 11/20/21 14:59
[2021-11-20] MEDS: Diphth,Pertuss(Acell),Tet Vac 0.5 ML Vial IM (14:09)
--- NOTE | 2021-11-21 15:50 | CASEMGMT ---
LIZ SHERMAN ED follow-up: Date of visit: 11/20/2021 Reason for visit: fall/head injury LIZ SHERMAN placed call to patient's listed telephone number on demographics, patient answered. Patient reports feeling pretty well today. Patient denies nausea or vomiting and reports eating well. Denies mobility issues, patient ambulates with walker and states compliant with use. Patient encouraged to use walker at all times to prevent further falls. Patient inquires about caring for wound repaired with skin adhesive and instructed on wound care. Patient resides at [facility]. Patient has not scheduled PCP follow-up appointment yet but states plans to do so. Patient denies further questions, concerns or needs and expressed appreciation for follow-up call. Nessa HILL CM
== END 2021-11-20 14:59 | disposition home or self-care (01) ==
PROVIDERS: Emergency Provider Emergency Medicine; PCP Family Medicine Geriatric Medicine; Visit Provider Emergency Medicine
DX: S00.03XA Contusion of scalp, initial encounter (principal); S00.81XA Abrasion of other part of head, initial encounter; W01.198A Fall on same level from slipping, tripping and stumbling with subsequent striking against other object, initial encounter; Y92.098 Other place in other non-institutional residence as the place of occurrence of the external cause; Y93.E9 Activity, other interior property and clothing maintenance; Y99.8 Other external cause status; I10 Essential (primary) hypertension; E78.5 Hyperlipidemia, unspecified; M19.90 Unspecified osteoarthritis, unspecified site; D64.9 Anemia, unspecified; F32.A Depression, unspecified; F41.9 Anxiety disorder, unspecified; R29.6 Repeated falls; Z79.82 Long term (current) use of aspirin; Z79.899 Other long term (current) drug therapy
CPT/HCPCS: 12011; 70450; 72125; 90471; 90715; 99284

== ENCOUNTER 2021-11-22 14:58 | Emergency (ER) | payer MEDICARE, OTHER, SELFPAY ==
--- NOTE | 2021-11-22 15:25 | CT_ITS ---
STUDY: CT BRAIN WITHOUT CONTRAST REASON FOR EXAM: Female, 86 years old. FALL RADIATION DOSAGE (If Supplied By Facility): CTDIvol = ( 44.99 ) mGy, DLP = ( 779.24 ) mGycm TECHNIQUE: Transaxial CT imaging of the brain was performed without administration of intravenous contrast material. Individualized dose optimization techniques were used for this CT. COMPARISON: CT head November 20, 2021 FINDINGS: There is left posterior parietal superficial focus of soft tissue edema measuring 5 x 2.3 cm. There is no visualized fracture. There is no visualized acute intracranial hemorrhage. Normal calvarium. There is mild cerebral atrophy with widening of the extra-axial spaces and ventricular dilatation. There are areas of decreased attenuation within the white matter tracts of the supratentorial brain, consistent with microvascular disease changes. Normal basal ganglia and thalami. Normal brainstem. There is mild cerebellar atrophy. There is no intracranial hemorrhage. There are no findings of an acute ischemic infarction. There is a persistent diminutive appearance of the right-sided maxillary sinus with also thickening. CT/Spine Cervical without Contras IMPRESSION: Left posterior parietal focus of 5 x 2.3 cm soft tissue edema/cephalohematoma. No visualized fracture. No visualized intracranial hemorrhage. Electronically Signed: Christina Benjamin MD at 15:43 EST Reading Location ID and State: [facility] / [place] Tel , Service support ,
--- NOTE | 2021-11-22 15:25 | CT_ITS ---
STUDY: CT BRAIN WITHOUT CONTRAST REASON FOR EXAM: Female, 86 years old. FALL RADIATION DOSAGE (If Supplied By Facility): CTDIvol = ( 44.99 ) mGy, DLP = ( 779.24 ) mGycm TECHNIQUE: Transaxial CT imaging of the brain was performed without administration of intravenous contrast material. Individualized dose optimization techniques were used for this CT. COMPARISON: CT head November 20, 2021 FINDINGS: There is left posterior parietal superficial focus of soft tissue edema measuring 5 x 2.3 cm. There is no visualized fracture. There is no visualized acute intracranial hemorrhage. Normal calvarium. There is mild cerebral atrophy with widening of the extra-axial spaces and ventricular dilatation. There are areas of decreased attenuation within the white matter tracts of the supratentorial brain, consistent with microvascular disease changes. Normal basal ganglia and thalami. Normal brainstem. There is mild cerebellar atrophy. There is no intracranial hemorrhage. There are no findings of an acute ischemic infarction. There is a persistent diminutive appearance of the right-sided maxillary sinus with also thickening. CT/Brain/Head without Contrast IMPRESSION: Left posterior parietal focus of 5 x 2.3 cm soft tissue edema/cephalohematoma. No visualized fracture. No visualized intracranial hemorrhage. Electronically Signed: Christina Benjamin MD at 15:43 EST Reading Location ID and State: Pending sale to [facility] / [place] Tel , Service support ,
--- NOTE | 2021-11-22 17:39 | EDS_ITS ---
DATE OF SERVICE 11/22/21 CHIEF COMPLAINT: Fall with head injury. HISTORY OF PRESENT ILLNESS: This is an 86-year-old female who uses a walker. She was on the phone and tried to get something out of her drawer and her walker was not quite near her and she tripped and fell backwards. No loss of consciousness. She hit the back of her head, but she does not have any neck pain. She does not have any other injuries including extremity injuries, chest wall injury or any other injury. No loss of consciousness. She is not on an anticoagulation. PHYSICAL EXAMINATION: VITAL SIGNS: Unremarkable. HEENT: Head shows a 2 cm laceration posterior scalp region with a cephalohematoma present of about 7-8 cm. The front shows a slight abrasion over the front scalp region. This is a few days old since she had a prior fall. NECK: Nontender with no C-spine tenderness. CHEST: No chest wall tenderness. No abdominal tenderness. LUNGS: Clear lungs bilaterally. EXTREMITIES: Full range of motion of all extremities without pain. NEUROLOGIC: Alert and oriented. Otherwise, she has a normal exam. DIAGNOSTIC DATA: CT head and C-spine are unremarkable. Labs are not warranted. EMERGENCY DEPARTMENT COURSE AND MEDICAL DECISION MAKING: This was a mechanical fall, and she is lucent and coherent. She gives me a detailed history and review of systems. We stapled her scalp with 2 tang. She tolerated it well. IMPRESSION: Head injury. Scalp laceration. PROCEDURE: Scalp laceration with 2 tang placed. DISPOSITION/PLAN: I will discharge with instructions. She can be safely discharged back to the residential. Discharged back to [facility].
== END 2021-11-22 18:05 | disposition home or self-care (01) ==
LOC: ED 18:37
PROVIDERS: Emergency Provider Emergency Medicine; PCP Family Medicine; Visit Provider Emergency Medicine
DX: S01.01XA Laceration without foreign body of scalp, initial encounter (principal); W19.XXXA Unspecified fall, initial encounter
CPT/HCPCS: 12001; 70450; 72125; 99284

== ENCOUNTER 2023-01-03 22:08 | Observation (INO) | payer MEDICARE, OTHER, SELFPAY ==
[2023-01-03 22:10] VITALS: BP 182/87; PULSE 77; RESP 18; TEMP 36.7; O2SAT 92; BMI 37.8
[2023-01-03 22:15] VITALS: BP 174/81; PULSE 77; PULSE 78; RESP 15; RESP 17; TEMP 36.7; O2SAT 91; O2SAT 93
[2023-01-03 22:20] VITALS: TEMP 36.7; O2SAT 93
--- NOTE | 2023-01-03 22:20 | CT_ITS ---
EXAM: CT CERVICAL SPINE WITHOUT INTRAVENOUS CONTRAST CLINICAL INDICATION: head injury TECHNIQUE: Helically acquired images were obtained of the cervical spine without intravenous contrast. 2D reformatted images were reviewed. This CT exam was performed using one or more of the following dose reduction techniques: automated exposure control, adjustment of the mA and/or kV according to patient size, and/or use of iterative reconstruction technique. This report was created using [employer] report generation technology. RADIATION DOSE: CTDIvol = 25.18 mGy, DLP = 492.87 mGy-cm COMPARISON: None. FINDINGS: VERTEBRAE: Straightening of the usual lordotic curvature. Facet joint hypertrophic changes at multiple levels, greatest on the left at C2-C5. Slight anterolisthesis of C3 with respect to C4 of roughly 2 mm appears chronic. DISCS/SPINAL CANAL/NEURAL FORAMINA: Moderate left C2-3 neural foraminal stenosis, severe right and moderate left C3-4 neural foraminal stenosis, severe left and moderate right 4-5 neural foraminal stenosis, at least moderately severe right and moderate left C5-6 and C6-7 neural foraminal stenosis. Marked disc space narrowing at C5-T1 with moderate multilevel spondylosis. Moderate disc space narrowing at L4-5 with mild spondylosis. Mild narrowing of the thecal sac without high-grade spinal stenosis at multiple levels. SOFT TISSUES: Unremarkable. No prevertebral soft tissue swelling. VASCULATURE: Mild left cervical carotid calcifications, minimal right carotid calcifications. LYMPH NODES: Unremarkable. No cervical adenopathy. LUNG APICES: Unremarkable as visualized. Clear. CT/Spine Cervical without Contras IMPRESSION: No acute posttraumatic abnormality. Advanced degenerative changes including high-grade multilevel neural foraminal stenosis. Electronically Signed: Solange Calvert MD at 23:34 EDT ,
--- NOTE | 2023-01-03 22:20 | CT_ITS ---
EXAM: CT HEAD WITHOUT INTRAVENOUS CONTRAST CLINICAL INDICATION: head injury TECHNIQUE: Multiple axial images were obtained of the head without intravenous contrast. This CT exam was performed using one or more of the following dose reduction techniques: automated exposure control, adjustment of the mA and/or kV according to patient size, and/or use of iterative reconstruction technique. This report was created using [employer] report generation technology. RADIATION DOSE: CTDIvol = 44.99 mGy, DLP = 849.54 mGy-cm COMPARISON: None. FINDINGS: BRAIN AND EXTRA-AXIAL SPACES: Unremarkable. No intra- or extra-axial hemorrhage. No evidence of acute infarct. No intracranial mass or mass effect. There is preservation of the [place]roy[place]/white matter interface. Posterior fossa structures are unremarkable. Ventricles are appropriate for age. No hydrocephalus. Basal cisterns are patent. BONES/JOINTS: Thickened and sclerotic right maxillary sinus margins and partial opacification and small size of the right maxillary sinus. Small mucous retention cyst in the right sphenoid sinus. VASCULATURE: Mild carotid calcifications. SINUSES: See above. MASTOID AIR CELLS: Unremarkable. Clear. ORBITS: Postoperative change of left globe scleral banding. Mild diffuse cerebral volume loss, mild low attenuation deep periventricular chronic white matter change. CT/Brain/Head without Contrast IMPRESSION: No acute intracranial abnormality. Mild chronic changes. Mild chronic sinusitis. Left globe postoperative changes. Electronically Signed: Solange Calvert MD at 23:10 EDT ,
--- NOTE | 2023-01-03 22:21 | EDS_ITS ---
HPI HPI - Fall History of Present Illness Chief Complaint: Fall Informant: patient Narrative Narrative: Presents by EMS from [facility] assisted living reported patient stating she fell 2 PM today cannot flex commode hitting her head on the tank. She did not lose consciousness. She is on baby aspirin. She told nursing this evening. In addition reported her blood pressure systolic 190 therefore she was sent here. Denies headache chest pain abdominal pain. Denies nausea or vomiting. Patient ambulates with a walker. Looking at her paperwork patient has a DNR comfort care only paperwork signed in 2012 by herself. Discussed this with her she confirms this with no heroic measures. Denies any extremity pain or paresthesias. She did have a fall also 2 days ago with no injuries. Patient reports her typical blood pressure 120s to 130s. [facility] Medical History Anxiety and depression Chronic anemia Frequent falls HTN (hypertension) Hyperlipidemia Macular degeneration Obesity Osteoarthritis Spinal stenosis Home Medications aspirin 81 mg tablet,delayed release 81 mg PO DAILY@0800 01/15/17 [History Last Taken Unknown] calcium carbonate 600 mg-vitamin D3 20 mcg (800 unit) tablet (Caltrate with Vitamin D3) 1 ea PO DAILY 01/15/17 [History Last Taken Unknown] gabapentin 100 mg capsule (Neurontin) 300 mg PO DAILY neuropathy 01/15/17 [History Last Taken 06/13/18 06:00] lrlnfmsclck-xbypzktud-hll C-Mn 500 mg-400 mg capsule 2 ea PO DAILY 01/15/17 [History Last Taken Unknown] meloxicam 15 mg tablet (Mobic) 15 mg PO DAILY 01/15/17 [History Last Taken Unknown] multivit with wexpydrr-jzvs-MS-lutein 8 mg iron-400 mcg-300 mcg tablet (Centrum Silver Women) 1 ea PO DAILY 01/15/17 [History Last Taken Unknown] pravastatin 20 mg tablet 20 mg PO QHS 01/15/17 [History Last Taken Unknown] sertraline 50 mg tablet 100 mg PO DAILY 01/15/17 [History Last Taken Unknown] vit C 250 mg-vit E 90 mg-zinc 40 mg-copper 1 hu-afwxqs-ouhsan capsule (PreserVision AREDS-2) 2 ea PO DAILY 10/14/17 [History Last Taken Unknown] docusate sodium 100 mg capsule 100 mg PO BID #30 caps 06/16/18 [Rx Last Taken Unknown] magnesium hydroxide 400 mg/5 mL oral suspension 30 ml PO DAILY PRN PRN Constipation ##14 06/16/18 [Rx Last Taken Unknown] diltiazem HCl 120 mg capsule,extended release 24 hr 120 mg PO DAILY 11/20/21 [History Last Taken Unknown] losartan 100 mg tablet 100 mg PO DAILY 01/04/23 [History Last Taken Unknown] nystatin 100,000 unit/gram topical cream 1 unit topical DAILY 01/04/23 [History Last Taken Unknown] oxybutynin chloride 10 mg tablet,extended release 24 hr 10 mg PO DAILY 01/04/23 [History Last Taken Unknown] Allergy/AdvReac Type Severity Reaction Status Date / Time iodine Allergy Rash Verified 01/03/23 22:16 COUGH SYRUP W/IODINE Allergy Rash Uncoded 01/03/23 22:16 Family History Mother Colon cancer Maternal family history of colon cancer with metastatic disease to the liver Father Prostate cancer Paternal family history of prostate cancer with metastatic disease to the bones. Sister Colon cancer Breast cancer Surgical History History of appendectomy History of eye surgery History of hysterectomy History of tonsillectomy and adenoidectomy S/P carpal tunnel release S/P cataract extraction Status post hip surgery Social History housing: assisted living facility Smoking Status: Never smoker alcohol intake: never substance use type: does not use ROS ROS ED Constitutional Constitutional ED: Denies chills, fever(s) or sweats Eyes Eyes: Denies change in vision ENT ENT ED: Denies dysphagia or sore throat Cardiovascular Cardiovascular: Denies chest pain, leg edema, palpitations or racing heartbeat Respiratory/Chest Respiratory/Chest: Denies cough, dyspnea or dyspnea on exertion Gastrointestinal Gastrointestinal: Denies abdominal pain, diarrhea, nausea or vomiting Genitourinary Genitourinary ED: Denies dysuria, hematuria or urinary frequency Musculoskeletal Musculoskeletal: Denies back pain, extremity pain or neck pain Integumentary Denies rash or wounds Neurologic Neurologic: Denies headache(s), paresthesias or weakness EXAM Physical Exam Const Vital Signs: 01/03/23 22:10 01/03/23 22:15 01/03/23 22:15 Temperature 98.1 F 98.1 F Temperature Source Oral Oral Pulse Rate 77 78 77 Respiratory Rate 18 17 15 Respiratory Effort Respiratory Depth Respiratory Pattern Blood Pressure 182/87 H 174/81 H 174/81 H Blood Pressure Mean 118 112 112 Pulse Ox 92 93 91 Oxygen Delivery Method Room Air Room Air Room Air Oxygen Flow Rate (L/min) 01/03/23 22:20 01/03/23 22:59 01/03/23 22:59 Temperature 98.1 F Temperature Source Pulse Rate Respiratory Rate Respiratory Effort Normal Non-Labored Respiratory Depth Normal Respiratory Pattern Normal Blood Pressure Blood Pressure Mean Pulse Ox 93 88 93 Oxygen Delivery Method Room Air Room Air Nasal Cannula Oxygen Flow Rate (L/min) 1 01/03/23 23:01 01/03/23 23:09 01/04/23 01:20 Temperature 98.5 F Temperature Source Oral Pulse Rate 84 73 Respiratory Rate 15 18 Respiratory Effort Respiratory Depth Respiratory Pattern Blood Pressure 185/95 H 158/81 H Blood Pressure Mean 125 106 Pulse Ox 94 Oxygen Delivery Method Room Air Nasal Cannula Oxygen Flow Rate (L/min) 1 Positive well nourished and well developed Constitutional Narrative: GCS 15. General Appearance ED: well developed and NAD HEENT Reports moist mucous membranes HEENT Narrative: No scalp hematoma or lacerations. No hemotympanums. normocephalic and atraumatic Eyes PERRL, EOMs intact bilaterally and conjunctivae normal General Eye ED: Yes normal appearance of both eyes Neck no lymphadenopathy and supple General: Negative for tenderness Chest Wall inspection of chest normal and palpation of chest normal Chest: Negative for tenderness Resp normal respiratory effort and normal air movement Effort and Inspection: symmetric chest movement; Negative for respiratory distress Cardio regular rate, regular rhythm and no murmurs Peripheral Pulses: pulses 2+ throughout GI normal to inspection, nondistended, normoactive bowel sounds and non-tender Palpation: Negative for guarding or rebound tenderness present Back/Spine no CVA tenderness and no thoracic nor lumbar tenderness Extremity normal to inspection General Extremety ED: Negative for edema or tenderness General Extremity: Negative for edema Neuro oriented x3, CN's II-XII intact bilaterally and no sensory deficits noted Sensorium / Orientation: awake and alert Skin no rashes or lesions noted and no wounds MDM MDM MDM Narrative Medical decision making narrative: Interventions / MDM: Differential diagnosis: Intracranial hemorrhage, closed head injury, elevated blood pressure Diagnosis considered but do not suspect: N/A My EKG interpretation: N/A Imaging independently reviewed and interpreted by myself: Chest x-ray views: Process reporting by radiology more prominent ascending thoracic aorta, however patient denies any chest pains or back pain. External documents reviewed: N/A Test considered but not ordered:N/A ED course: Patient DNR CC confirmed by her. Blood pressure arrival 170/81. She denies any hypertensive emergency symptoms. Patient DNR status she is a noted 3 GCS 15. Reports head injury. Sent her for CT head and neck for evaluation. 2304: Reported me from nursing patient pulse ox dropped down to 88% with good waveform she was placed on 1 L oxygen. She denied dyspnea complaints. Reported pressure up to 185/95. Patient is not hospice at this time. Therefore we will check labs COVID chest x-ray. Patient be given labetalol. Re-evaluation: Chest x-ray negative. Laboratory studies are all stable. COVID testing negative. Patient ambulated with a walker off oxygen reported dropped down to 88%. She is placed back on 1 L oxygen. She is at assisted living facility. I will discuss with hospitalist service due to her hypoxia. Disposition discussed with patient/family/significant other: Patient Case discussed with consulting clinician: Hospitalist, Dr. Castillo Lab Data Attestation: I reviewed the patient's lab results. Labs: Laboratory Results - last 24 hr 01/03/23 01/03/23 23:48 23:48 WBC 7.6 RBC 3.89 L Hgb 12.5 Hct 37.6 MCV 96.7 MCH 32.1 H MCHC 33.2 RDW Std Deviation 48.8 H RDW Coeff of Dandy 14.5 Plt Count 266 MPV 9.8 Immature Gran % (Auto) 0.100 Neut % (Auto) 67.2 Lymph % (Auto) 20.7 [place] % (Auto) 7.9 Eos % (Auto) 3.1 Baso % (Auto) 1.0 Absolute Neuts (auto) 5.1 Absolute Lymphs (auto) 1.58 Nucleated RBC % 0 Sodium 142 Potassium 4.4 Chloride 108 H Carbon Dioxide 27.0 Anion Gap 7 BUN 31 H Creatinine 0.76 Estim Creat Clear Calc 29.54 Est GFR (MDRD) Af Amer 93 Est GFR (MDRD) Non-Af 77 BUN/Creatinine Ratio 40.9 H Glucose 115 H Calcium 10.3 H Radiography Diagnostic Testing: Clinical Impression(s) from Imaging Studies Brain CT 01/03/23 22:20 IMPRESSION: No acute intracranial abnormality. Mild chronic changes. Mild chronic sinusitis. Left globe postoperative changes. Electronically Signed: Solange Calvert MD at 23:10 EDT , Cervical Spine CT 01/03/23 22:20 IMPRESSION: No acute posttraumatic abnormality. Advanced degenerative changes including high-grade multilevel neural foraminal stenosis. Electronically Signed: Solange Calvert MD at 23:34 EDT , Chest X-Ray 01/04/23 00:00 IMPRESSION: 1. Mildly more prominent appearance of descending thoracic aorta margin compared to old exams back to 2017 [address] if there is clinical concern for aortic aneurysm or dissection. 2. Otherwise stable chest. Electronically Signed: Solange Calvert MD at 0:48 EDT , Discharge Plan Dx/Rx/DC Orders Clinical Impression: Fall, Head injury, Elevated blood pressure reading with diagnosis of hypertension, Hypoxia Disposition Disposition: Acute Care Hospital [facility] Discharge Date/Time: 01/04/23 03:06
[2023-01-03 22:59] VITALS: O2SAT 88; O2SAT 93
[2023-01-03 23:01] VITALS: BP 185/95; PULSE 84; RESP 15; TEMP 36.9; O2SAT 94
--- NOTE | 2023-01-03 23:51 | ED.RN ---
PT INCONTINENT OF URINE. BED LINENS CHANGED, BRIEF CHANGED, PT CLEANED UP WITH WIPES.
[2023-01-03 23:55] LABS: Absolute Lymphocyte Count 1.58 X10^3/uL (0.83-4.51); Absolute Neutrophil Count 5.1 X10^3/uL (2.0-7.7); Basophil# 0.08 X10^3/uL; Eosinophil# 0.24 X10^3/uL; Eosinophils% 3.1 % (0-5); Hematocrit 37.6 % (37-47); Hemoglobin 12.5 g/dL (12.0-15.0); Lymphocyte # 1.58 X10^3/ul (0.83-4.51); Lymphocyte % 20.7 % (19-41); Mean Corp Hgb Conc 33.2 g/dL (32-36); Mean Corpuscular Hgb 32.1 pg (27.0-32.0); Mean Corpuscular Volume 96.7 fL (81-99); Mean Platelet Vol. 9.8 fl (6.2-12.0); Monocyte% 7.9 % (0-10); NRBC Flagged by Analyzer 0 % (0-5); Neutrophil # 5.13 X10^3/uL (2.7-7.7); Neutrophil % 67.2 % (47-70); Platelet Count 266 K/mm3 (150-450); RBC Distribution Width CV 14.5 % (11.6-14.6); RBC Distribution Width SD 48.8 fl (35.1-43.9); Red Blood Count 3.89 M/mm3 (4.2-5.4); White Blood Count 7.6 K/mm3 (4.4-11.0)
[2023-01-03] MEDS: Labetalol (Prefilled) 20 MG/4 ML 10 MG IV (23:59)
[2023-01-04] VITALS (12 sets, daily range): BP systolic 121–180; BP diastolic 64–101; PULSE 68–98; RESP 12–18; TEMP 36.5–37.1; O2SAT 92–97; BMI 34.9
--- NOTE | 2023-01-04 | RAD_ITS ---
EXAM: XR CHEST, 2 VIEWS CLINICAL INDICATION: sob TECHNIQUE: Frontal and lateral views of the chest. This report was created using [employer] report generation technology. COMPARISON: June 13, 2018. January 15, 2017. FINDINGS: LUNGS AND PLEURAL SPACES: Unremarkable. No pneumothorax. No definite infiltrates or effusions. Similar perihilar structures. HEART: Unremarkable. Cardiac silhouette not enlarged. MEDIASTINUM: Central airways and mediastinal contour are unremarkable. BONES/JOINTS: Mild degenerative spine changes. Old healed fracture of right fourth rib with mildly irregular contour similar to prior exam. SOFT TISSUES: Unremarkable. VASCULATURE: Mild peripheral calcification of the aortic arch is similar. Mildly tortuous and prominent contour in descending thoracic aorta appears mildly more prominent compared to 2017, cannot exclude descending thoracic aortic aneurysm. RAD/Chest PA and Lateral IMPRESSION: 1. Mildly more prominent appearance of descending thoracic aorta margin compared to old exams back to 2017 [address] if there is clinical concern for aortic aneurysm or dissection. 2. Otherwise stable chest. Electronically Signed: Solange Calvert MD at 0:48 EDT ,
[2023-01-04 00:24] LABS: Anion Gap 7 (5-15); BUN 31 mg/dL (7-18); BUN/Creat Ratio 40.9 RATIO (10-20); Calcium,Total 10.3 mg/dL (8.5-10.1); Chloride 108 mmol/L (98-107); Creatinine, Serum 0.76 mg/dL (0.55-1.02); EST Glomerular Filtration Rate 77 mL/min (>60); Est Glom Filt Rate - Afr Amer 93 mL/min (>60); Estimated Creatinine Clearance 29.54 ml/min; Glucose 115 mg/dL (74-106); Potassium 4.4 mmol/L (3.5-5.1); Sodium Level 142 mmol/L (136-145)
--- NOTE | 2023-01-04 02:15 | HP.PCM_ITS ---
HPI - General General Date of Admission: 01/04/23 Date of Service: 01/04/23 Chief Complaint: Fall. HPI Narrative The patient is an 87 y/o F w/ PMHx: Chronic anemia, Anxiety and Depression, HTN, HLD, Chronic back pain with known spinal stenosis, Fibromyalgia, Obesity who presents to the [facility] ED on 01/04/23 with history of unfortunately falling at approximately 2 PM on day prior to presentation hitting her head on the tank of the commode with no loss of consciousness and only reporting it to nursing in the evening with repeat evaluation at that time with blood pressure with systolic in the 190s prompting transition to the ED for evaluation. She denies any associated headache with her recent fall nor any nausea or emesis. She normally does function with a walker but has been falling frequently including 2 days prior. Work-up in the ED included T98.5, heart 84, BP 185/95, respiratory rate 15, initially reported as 88% on room air improving to 94% on 1 L nasal cannula, CBC with WBC 7.6, hemoglobin 12.5, platelet 266 without marked shift, BMP with chloride 108, BUN/creatinine 31/0.76, glucose 115, calcium 10.3, chest x-ray with mildly more prominent appearance descending thoracic aortic margin compared to 2017 in 2018 otherwise stable chest, COVID rapid antigen negative, CT brain with no acute intracranial abnormality with mild chronic changes, mild chronic sinusitis, evidence postop change left globe, CT cervical spine, with no acute posttraumatic abnormality, advanced degenerative changes including high- grade multilevel neural foraminal stenosis. In the ED patient pulse ox noted to decrease down to 88% therefore she was placed on 1 L nasal cannula with no dyspnea complaints reported. Given the hypoxia prompted ED physician to obtain basic labs/COVID/chest x-ray. In the ED patient ministered labetalol 10 mg IV x 1. ED ambulatory pulse oximeter assessment with low of 88% on room air. [facility] Medical History Anxiety and depression Chronic anemia Frequent falls HTN (hypertension) Hyperlipidemia Macular degeneration Obesity Osteoarthritis Spinal stenosis Home Medications aspirin 81 mg tablet,delayed release 81 mg PO DAILY@0800 01/15/17 [History Last Taken Unknown] calcium carbonate 600 mg-vitamin D3 20 mcg (800 unit) tablet (Caltrate with Vitamin D3) 2 ea PO DAILY 01/15/17 [History Last Taken Unknown] gabapentin 100 mg capsule (Neurontin) 300 mg PO DAILY neuropathy 01/15/17 [History Last Taken 06/13/18 06:00] cfvdyoerbmq-kceqpjuhx-bil C-Mn 500 mg-400 mg capsule 2 ea PO DAILY 01/15/17 [History Last Taken Unknown] losartan 100 mg-hydrochlorothiazide 25 mg tablet 1 tab PO DAILY 01/15/17 [History Last Taken Unknown] meloxicam 15 mg tablet (Mobic) 15 mg PO DAILY 01/15/17 [History Last Taken Unknown] multivit with uyuvqxda-wfxd-VF-lutein 8 mg iron-400 mcg-300 mcg tablet (Centrum Silver Women) 1 ea PO DAILY 01/15/17 [History Last Taken Unknown] pravastatin 20 mg tablet 20 mg PO QHS 01/15/17 [History Last Taken Unknown] sertraline 50 mg tablet 50 mg PO DAILY 01/15/17 [History Last Taken Unknown] tramadol 50 mg tablet 50 mg PO Q4H PRN PRN Pain 01/15/17 [History Last Taken 06/13/18 06:00] vit C 250 mg-vit E 90 mg-zinc 40 mg-copper 1 va-oibfxr-igjpwy capsule (PreserVision AREDS-2) 2 ea PO DAILY 10/14/17 [History Last Taken Unknown] docusate sodium 100 mg capsule 100 mg PO BID #30 caps 06/16/18 [Rx Last Taken Unknown] magnesium hydroxide 400 mg/5 mL oral suspension 30 ml PO DAILY PRN PRN Constipation ##14 06/16/18 [Rx Last Taken Unknown] oxycodone 5 mg tablet 5 mg PO Q6H PRN PRN Moderate Pain (pain scale 4-5) 7 days #30 tabs 06/16/18 [Rx Last Taken Unknown] diltiazem HCl 120 mg capsule,extended release 24 hr 120 mg PO DAILY 11/20/21 [ History Last Taken Unknown] Allergy/AdvReac Type Severity Reaction Status Date / Time iodine Allergy Rash Verified 01/03/23 22:16 COUGH SYRUP W/IODINE Allergy Rash Uncoded 01/03/23 22:16 Family History Mother Colon cancer Maternal family history of colon cancer with metastatic disease to the liver Father Prostate cancer Paternal family history of prostate cancer with metastatic disease to the bones. Sister Colon cancer Breast cancer Surgical History History of appendectomy History of eye surgery History of hysterectomy History of tonsillectomy and adenoidectomy S/P carpal tunnel release S/P cataract extraction Status post hip surgery Social History housing: assisted living facility Smoking Status: Never smoker alcohol intake: never substance use type: does not use ROS ROS Narrative Admission Review of Systems: CONSTITUTIONAL: No weight loss, fever, chills, + weakness or fatigue. HEENT: Eyes: No visual loss, blurred vision, double vision or yellow sclerae. Ears, Nose, Throat: No hearing loss, sneezing, congestion, runny nose or sore throat. SKIN: + Occasional staged ecchymoses especially with recent falls. CARDIOVASCULAR: No chest pain, chest pressure or chest discomfort, palpitations, edema, orthopnea, syncopal events. RESPIRATORY: No shortness of breath, cough or sputum, wheezing, hemoptysis. GASTROINTESTINAL: No anorexia, nausea, vomiting or diarrhea, abdominal pain, melena, BRBPR. GENITOURINARY: No dysuria, frequency, urgency or retention. NEUROLOGICAL: + Difficulty with gait, chronic neuropathy with lumbar back pain no headache, dizziness, syncope, paralysis, focal weakness, change in bowel or bladder control, seizure. MUSCULOSKELETAL: + muscle, back pain, joint pain or stiffness. HEMATOLOGIC: + anemia, bleeding or bruising. LYMPHATICS: No enlarged nodes. No history of splenectomy. PSYCHIATRIC: + history of depression or anxiety. ENDOCRINOLOGIC: No reports of sweating, cold or heat intolerance. No polyuria or polydipsia. ALLERGIES: No history of asthma, hives, eczema or rhinitis. Vital Signs Vital Signs Vital Signs: 01/03/23 22:10 01/03/23 22:15 01/03/23 22:15 Temperature 98.1 F 98.1 F Temperature Source Oral Oral Pulse Rate 77 78 77 Respiratory Rate 18 17 15 Respiratory Effort Respiratory Depth Respiratory Pattern Blood Pressure 182/87 H 174/81 H 174/81 H Blood Pressure Mean 118 112 112 Pulse Ox 92 93 91 Oxygen Delivery Method Room Air Room Air Room Air Oxygen Flow Rate (L/min) 01/03/23 22:20 01/03/23 22:59 01/03/23 22:59 Temperature 98.1 F Temperature Source Pulse Rate Respiratory Rate Respiratory Effort Normal Non-Labored Respiratory Depth Normal Respiratory Pattern Normal Blood Pressure Blood Pressure Mean Pulse Ox 93 88 93 Oxygen Delivery Method Room Air Room Air Nasal Cannula Oxygen Flow Rate (L/min) 1 01/03/23 23:01 01/03/23 23:09 01/04/23 01:20 Temperature 98.5 F Temperature Source Oral Pulse Rate 84 73 Respiratory Rate 15 18 Respiratory Effort Respiratory Depth Respiratory Pattern Blood Pressure 185/95 H 158/81 H Blood Pressure Mean 125 106 Pulse Ox 94 Oxygen Delivery Method Room Air Nasal Cannula Oxygen Flow Rate (L/min) 1 Weight Weight: 193 lb 9.054 oz Body Mass Index (BMI) 37.8 Physical Exam Narrative Physical Examination: General: Awake, alert, oriented x 3, hard of hearing, remains cooperative, laying in the ED bed, fatigued otherwise no acute distress. Skin: Normal color, normal turgor, no icterus, no cyanosis except for occasional staged ecchymoses especially with recent frequent falls. HEENT: AT/NC, EOMI, PERRLA, MMM, mildly hard of hearing, no carotid bruits or JVD noted. Lungs: Diminished, greater bases, appropriate effort, no rales, ronchi or wheezing. Heart: Currently regular rate and rhythm; no gallop, rub audible, + SM. Abdomen: Soft, obese, NTTP, ND, distant normal BS, no HSM. Extremities: No cyanosis, clubbing, or edema. Neurological: Patient awake, alert, oriented as noted, cognitive function appears baseline intact; pupils equally reactive to light and accommodation, cranial nerves II-XII grossly normal, moving all 4 extremities, no focal deficits, strength moderately global decreased. Psychiatric: Affect appears fatigued otherwise normal, no acute evidence of depressive or anxiety feelings. Results Lab / Micro Data Result Diagrams: 01/03/23 23:48 01/03/23 23:48 Labs: Laboratory Results - last 24 hr 01/03/23 23:48: WBC 7.6, RBC 3.89 L, Hgb 12.5, Hct 37.6, MCV 96.7, MCH 32.1 H, MCHC 33.2, RDW Std Deviation 48.8 H, RDW Coeff of Dandy 14.5, Plt Count 266, MPV 9.8, Immature Gran % (Auto) 0.100, Neut % (Auto) 67.2, Lymph % (Auto) 20.7, [place] % (Auto) 7.9, Eos % (Auto) 3.1, Baso % (Auto) 1.0, Absolute Neuts (auto) 5.1, Absolute Lymphs (auto) 1.58, Nucleated RBC % 0 01/03/23 23:48: Sodium 142, Potassium 4.4, Chloride 108 H, Carbon Dioxide 27.0, Anion Gap 7, BUN 31 H, Creatinine 0.76, Estim Creat Clear Calc 29.54, Est GFR (MDRD) Af Amer 93, Est GFR (MDRD) Non-Af 77, BUN/Creatinine Ratio 40.9 H, Glucose 115 H, Calcium 10.3 H Micro: Microbiology 01/03/23 23:22 Nasal Secretion SARS-CoV-2 Antigen (Rapid) - Final Radiology Impression Brain CT 01/03/23 22:20 IMPRESSION: No acute intracranial abnormality. Mild chronic changes. Mild chronic sinusitis. Left globe postoperative changes. Electronically Signed: Solange Calvert MD at 23:10 EDT , Cervical Spine CT 01/03/23 22:20 IMPRESSION: No acute posttraumatic abnormality. Advanced degenerative changes including high-grade multilevel neural foraminal stenosis. Electronically Signed: Solange Calvert MD at 23:34 EDT , Chest X-Ray 01/04/23 00:00 IMPRESSION: 1. Mildly more prominent appearance of descending thoracic aorta margin compared to old exams back to 2017 [address] if there is clinical concern for aortic aneurysm or dissection. 2. Otherwise stable chest. Electronically Signed: Solange Calvert MD at 0:48 EDT , Assessment & Plan Assessment/Plan (1) Fall: QUALIFIERS: Encounter type: initial encounter Qualified Code(s): W19.XXXA - Unspecified fall, initial encounter PLAN: Plan The patient is an 87 y/o F w/ PMHx: Chronic anemia, Anxiety and Depression, HTN, HLD, Chronic back pain with known spinal stenosis, Fibromyalgia, Obesity who presents to the [facility] ED on 01/04/23 with history of unfortunately falling at approximately 2 PM on day prior to presentation hitting her head on the tank of the commode with no loss of consciousness and only reporting it to nursing in the evening with repeat evaluation at that time with blood pressure with systolic in the 190s prompting transition to the ED for evaluation. #1. Adult failure to thrive with frequent mechanical falls: We will admit to medical surgical floor, maintain on fall precautions, will plan judicious hydration and plan repeat chest x-ray in a.m. given unclear hypoxia etiology, will obtain PT and OT assessments as well as case management consultation for discharge planning as patient currently in assisted living and may necessitate given her frequent fall history and current presentation transition to full skilled component at her facility. #2. Hypoxia, unclear specific etiology: Will judiciously hydrate,, given comments on chest x-ray finding we will also obtain CT chest but given creatinine clearance will be without IV contrast this a.m. following some judicious hydration, will obtain full respiratory panel as well as COVID PCR and procalcitonin, as needed albuterol, continue oxygen supplementation with wean as tolerated to room air. #3. Chronic back pain, fibromyalgia, spinal stenosis: Patient with significant fall history likely related, will continue patient home gabapentin regimen, maintain on fall precautions, PT and OT assessment as well as case management c onsult placed. #4. Chronic anemia, normocytic: Admission hemoglobin 12.5, baseline previously primarily 12 however patient in 2018 did have her hemoglobin decreased transiently, trend CBC. #5. Hypertension: Continue home regimen including losartan, hydrochlorothiazide, diltiazem, PRN hydralazine. #6. Anxiety and depression: We will continue patient home sertraline regimen. #7. Hyperlipidemia: We will continue patient home statin therapy. #8. DVT prophylaxis: Heparin. #9. CODE status: Patient FAIZA is her brother and sister and living will is currently in place. Discussed CODE status at length including difference between FULL code, DNR-CCA and DNR-CC status. Following discussions about the differences in these status, requested DNR-CC but she is amenable to medical therapies at this time and understands that evaluation is necessary for potential transition to skilled. Advanced Care Planning Face to Face Time: 16 minutes. Admission Evaluation Time spent evaluating chart, patient history, patient evaluation, care planning and discussion with specialists: 56 minutes. Charges/Coding Visit Charges Inpatient E&M: 38821 Init Hosp L2 Procedures Hospitalists Procedures: 90149 Advncd Care Plan 30 Min
[2023-01-04] MEDS: 0.9% Normal Saline 1,000 ML 100 ML IV (03:39)
[2023-01-04 07:30] LABS: Absolute Lymphocyte Count 1.64 X10^3/uL (0.83-4.51); Basophil# 0.08 X10^3/uL; Eosinophil# 0.23 X10^3/uL; Hematocrit 36.8 % (37-47); Hemoglobin 11.5 g/dL (12.0-15.0); Lymphocyte # 1.64 X10^3/ul (0.83-4.51); Lymphocyte % 21.4 % (19-41); Mean Corp Hgb Conc 31.3 g/dL (32-36); Mean Corpuscular Hgb 29.3 pg (27.0-32.0); Mean Corpuscular Volume 93.9 fL (81-99); Mean Platelet Vol. 9.9 fl (6.2-12.0); Monocyte# 0.67 X10^3/uL; Monocyte% 8.7 % (0-10); NRBC Flagged by Analyzer 0 % (0-5); Neutrophil # 5.04 X10^3/uL (2.7-7.7); Neutrophil % 65.6 % (47-70); Platelet Count 243 K/mm3 (150-450); RBC Distribution Width CV 14.4 % (11.6-14.6); RBC Distribution Width SD 49.2 fl (35.1-43.9); Red Blood Count 3.92 M/mm3 (4.2-5.4); White Blood Count 7.7 K/mm3 (4.4-11.0)
--- NOTE | 2023-01-04 07:38 | PN.HOSP_ITS ---
Reason for Visit Reason for Visit: Fall Subjective Subjective This is an 87-year-old white female who presented to the emergency department at [facility] on 01/04/2023 with history of falling at approximately 2 PM on the day of presentation. She hit her head on the toilet tank but had no loss of consciousness. She was sent to the emergency department after reporting this to her nurses that evening and given the fact she was found to have a systolic blood pressure in the 190s. She denied any headache at presentation and reported on admission that she typically had been functioning well with her walker but had been falling more frequently lately. Vital signs in ED upon presentation demonstrated a T98.5, heart 84, BP 185/95, respiratory rate 15, initially reported as 88% on room air improving to 94% on 1 L nasal cannula. Labs were overall unremarkable. Chest x-ray showed a mildly more prominent appearance of the descending thoracic aortic margin compared to 2017. Her rapid COVID was negative. CT of the brain showed no acute intracranial abnormality with mild chronic changes in the CT of the cervical spine showed no acute po sttraumatic abnormality. Respiratory viral panel is negative. Patient states she is having no problems. Would like to go home and have outpatient therapy versus home health if possible. Will await therapy services. Objective Data Objective Data Vital Signs: Vital Signs Temp Pulse Resp BP Pulse Ox O2 Del Method O2 Flow Rate 98.8 F 68 18 148/92 H 97 Nasal Cannula 1 01/04/23 03:28 01/04/23 03:28 01/04/23 03:28 01/04/23 03:28 01/04/23 03:28 01/04/23 03:28 01/04/23 03:28 FiO2 97 01/04/23 03:22 Oxygen Flow Rate (L/min) 1 Oxygen Delivery Method Nasal Cannula Weight: 81.012 kg Body Mass Index (BMI) 34.9 Lab / Micro Data Result Diagrams: 01/04/23 06:45 01/04/23 06:45 Labs: Laboratory Results - last 24 hr 01/03/23 23:48: WBC 7.6, RBC 3.89 L, Hgb 12.5, Hct 37.6, MCV 96.7, MCH 32.1 H, MCHC 33.2, RDW Std Deviation 48.8 H, RDW Coeff of Dandy 14.5, Plt Count 266, MPV 9.8, Immature Gran % (Auto) 0.100, Neut % (Auto) 67.2, Lymph % (Auto) 20.7, [place] % (Auto) 7.9, Eos % (Auto) 3.1, Baso % (Auto) 1.0, Absolute Neuts (auto) 5.1, Absolute Lymphs (auto) 1.58, Nucleated RBC % 0 01/03/23 23:48: Sodium 142, Potassium 4.4, Chloride 108 H, Carbon Dioxide 27.0, Anion Gap 7, BUN 31 H, Creatinine 0.76, Estim Creat Clear Calc 29.54, Est GFR (MDRD) Af Amer 93, Est GFR (MDRD) Non-Af 77, BUN/Creatinine Ratio 40.9 H, Glucose 115 H, Calcium 10.3 H 01/04/23 06:45: WBC 7.7, RBC 3.92 L, Hgb 11.5 L, Hct 36.8 L, MCV 93.9, MCH 29.3, MCHC 31.3 L D, RDW Std Deviation 49.2 H, RDW Coeff of Dandy 14.4, Plt Count 243, MPV 9.9, Immature Gran % (Auto) 0.300, Neut % (Auto) 65.6, Lymph % (Auto) 21.4, [place] % (Auto) 8.7, Eos % (Auto) 3.0, Baso % (Auto) 1.0, Absolute Neuts (auto) 5.0, Absolute Lymphs (auto) 1.64, Nucleated RBC % 0 Micro: Microbiology 01/03/23 23:22 Nasal Secretion SARS-CoV-2 Antigen (Rapid) - Final Radiography Diagnostic Testing: Radiology Impression Brain CT 01/03/23 22:20 IMPRESSION: No acute intracranial abnormality. Mild chronic changes. Mild chronic sinusitis. Left globe postoperative changes. Electronically Signed: Solange Calvert MD at 23:10 EDT , Cervical Spine CT 01/03/23 22:20 IMPRESSION: No acute posttraumatic abnormality. Advanced degenerative changes including high-grade multilevel neural foraminal stenosis. Electronically Signed: Solange Calvert MD at 23:34 EDT , Chest X-Ray 01/04/23 00:00 IMPRESSION: 1. Mildly more prominent appearance of descending thoracic aorta margin compared to old exams back to 2017 [address] if there is clinical concern for aortic aneurysm or dissection. 2. Otherwise stable chest. Electronically Signed: Solange Calvert MD at 0:48 EDT , Assessment & Plan Assessment/Plan (1) Elevated blood pressure reading with diagnosis of hypertension: (2) Head injury: (3) Hypoxia: (4) Fall: QUALIFIERS: Encounter type: initial encounter Qualified Code(s): W19.XXXA - Unspecified fall, initial encounter (5) Debility: PLAN: Plan Adult failure to thrive/falls/debility -PT/OT consultation -Appears the patient does currently live alone using a walker at baseline however having more falls -We will likely need placement prior to discharge home -Case management/social work involvement for placement -Patient with commercial Medicare so will need pre-CERT prior to discharge Hypoxia -COVID/rapid flu are negative -Respiratory viral panel is pending -Chest x-ray shows prominent thoracic aorta but otherwise is unremarkable -CTA of the chest is pending -Currently on 1 L nasal cannula with oxygen saturations at 97% -Wean as able -Continue as needed nebulizers Chronic normocytic anemia -Hemoglobin appears to be stable -A.m. hemoglobin is 11.5 consistent with previous laboratory data -Trend as needed -No signs of acute bleeding Hypertension -Continue home losartan -Continue home hydrochlorothiazide -Continue home diltiazem -As needed hydralazine -Monitor blood pressures as she was noted to be markedly hypertensive on admission Hyperlipidemia -Continue home statin Chronic pain/fibromyalgia/spinal stenosis -Continue home BiPAP and Urinary incontinence -Continue home oxybutynin -Would recommend weaning off oxybutynin with her age and fall risk DVT prophylaxis -Subcu heparin CODE STATUS -DNR CCA
[2023-01-04 07:45] LABS: ALB/GLOB Ratio 0.8 RATIO (0.9-2.4); AST(SGOT) 25 U/L (15-37); Alanine Aminotransfer ALT/SGPT 23 U/L (13-56); Albumin, Serum 3.2 g/dL (3.2-5.0); Alkaline Phosphatase 89 U/L (45-117); Anion Gap 6 (5-15); BUN 24 mg/dL (7-18); BUN/Creat Ratio 38.8 RATIO (10-20); Calcium,Total 9.8 mg/dL (8.5-10.1); Chloride 111 mmol/L (98-107); Creatinine, Serum 0.62 mg/dL (0.55-1.02); EST Glomerular Filtration Rate 97 mL/min (>60); Est Glom Filt Rate - Afr Amer 118 mL/min (>60); Estimated Creatinine Clearance 29.54 ml/min; Globulin 3.8 g/dL (2.2-4.2); Glucose 108 mg/dL (74-106); Potassium 3.9 mmol/L (3.5-5.1); Sodium Level 143 mmol/L (136-145)
--- NOTE | 2023-01-04 07:48 | CT_ITS ---
STUDY: CTA CHEST REASON FOR EXAM: Female, 87 years old with hypoxia. TECHNIQUE: CT angiogram of chest was performed with the intravenous administration of 100 ml Isovue-370. Post-processing of the angiographic images was performed, with MIP and MPR reconstructions. Individualized dose optimization techniques were used for this CT. COMPARISON: None. FINDINGS: Evaluation slightly limited by beam hardening artifact. PULMONARY ARTERIES: No pulmonary arterial filling defects identified. AORTA AND VISUALIZED GREAT VESSELS: Atherosclerosis with no thoracic aortic aneurysm or dissection. Great vessels are patent. HEART AND PERICARDIUM: Heart size upper limits normal. Coronary arterial and mitral annular calcifications noted. No significant pericardial effusion. MEDIASTINUM AND DANA: Small, benign calcified mediastinal and hilar lymph nodes. No pathologic adenopathy. Small hiatal hernia. LUNGS, PLEURA AND LARGE AIRWAYS: Mildly elevated right hemidiaphragm. Mild bibasilar atelectatic changes with a few small, benign pulmonary granulomatous calcifications. No pulmonary edema, mass or consolidation. No pleural effusion. No pneumothorax. BONES: Skeletal degenerative changes with no acute osseous abnormality. There are few chronic right rib fractures. CHEST WALL: No chest wall mass or acute findings. VISUALIZED ABDOMEN: Benign calcified granulomas within liver and spleen. Cholelithiasis with no pericholecystic edema or dilated biliary ducts. Partially imaged kidneys with a few small simple appearing cysts, no additional follow-up recommended at this time. CT/CTA Chest W/WO Contrast IMPRESSION: 1. No pulmonary embolus or acute cardiopulmonary disease. 2. Sequela of previous granulomatous infection with mild bilateral atelectatic changes. 3. Cholelithiasis. Follow-up as clinically warranted. 4. Other nonurgent findings within body of report. Electronically Signed: Mati Spence MD at 23:52 EDT ,
--- NOTE | 2023-01-04 08:31 | CASEMGMT ---
Social Work SW sent clinical updates to James Delgado via [employer]. SW asked [facility] facility to confirm pt can return if medically stable or if pt may need SNF if bed is open on [facility] side. Will await response. NELY Hutson
[2023-01-04 09:00] LABS: Procalcitonin < 0.04 ng/mL (0.00-0.09)
[2023-01-04] MEDS: 0.9% Saline Lock 10 ML Syringe IV (10:33)
[2023-01-04] MEDS: hydrALAZINE 20 MG/ML Vial 10 MG IV (10:33)
[2023-01-04] MEDS: Heparin Injection (Vial) 5,000 UNIT/ML VIAL 5000 UNIT SC ×2 (10:33→21:34)
--- NOTE | 2023-01-04 13:12 | CASEMGMT ---
Addendum entered by Magy Buenrostro 01/04/23 13:55: Received notification from [facility] that therapy would be considered outpt. Original Note: LIZ SHERMAN in to discuss [employer] form with patient. LIZ SHERMAN explained [employer] form, patient voiced understanding. Pt signed form and filed in chart. Pt provided with a copy of signed [employer] form. Discussed HHC with patient for therapy. Pt states she has had therapy from the therapists at [facility] on and off and would be interested in this again. Patient had no further questions or concerns at this time. Message sent to [facility] via referral to verify if this is outpt or HHC and how to proceed with orders.
[2023-01-04] MEDS: Sertraline 50 MG Tablet 100 MG PO (18:35)
[2023-01-04] MEDS: Losartan Potassium 100 MG Tablet PO (18:35)
[2023-01-04] MEDS: Pravastatin 20 MG Tablet PO (21:33)
[2023-01-04] MEDS: DiphenhydrAMINE 25 MG Capsule 50 MG PO (21:33)
[2023-01-05 03:09] VITALS: BP 148/91; PULSE 95; RESP 18; TEMP 36.4; O2SAT 94
[2023-01-05 06:00] VITALS: BMI 34.7
[2023-01-05] MEDS: dilTIAZem CD 120 MG Capsule PO (09:02)
[2023-01-05] MEDS: Tolterodine Tartrate 2 MG CAP.SA PO (09:03)
[2023-01-05] MEDS: Losartan Potassium 100 MG Tablet PO (09:03)
[2023-01-05] MEDS: Aspirin E.C. 81 MG Tablet PO (09:04)
[2023-01-05] MEDS: Sertraline 50 MG Tablet 100 MG PO (09:04)
[2023-01-05] MEDS: Gabapentin 100 MG Capsule 300 MG PO (09:06)
[2023-01-05] MEDS: Heparin Injection (Vial) 5,000 UNIT/ML VIAL 5000 UNIT SC (09:09)
[2023-01-05 09:16] VITALS: BP 139/68; PULSE 90; RESP 16; TEMP 36.8; O2SAT 93
[2023-01-05 10:24] VITALS: O2SAT 93
[2023-01-05 10:47] VITALS: O2SAT 93
--- NOTE | 2023-01-05 11:22 | PCM.DC.SUM ---
Providers Date of Admission: 01/04/23 Date of Discharge: 01/05/23 Primary Care Physician: Dr. Mati Landon MD Reason For Visit: FREQUENT FALLS, HYPOXIA Diagnosis Discharge Diagnosis (1) Elevated blood pressure reading with diagnosis of hypertension: Status: Acute Code(s): I10 - Essential (primary) hypertension (2) Head injury: Status: Acute Code(s): S09.90XA - Unspecified injury of head, initial encounter (3) Hypoxia: Status: Acute Code(s): R09.02 - Hypoxemia (4) Fall: Status: Acute Code(s): W19.XXXA - Unspecified fall, initial encounter Qualifiers: Encounter type: initial encounter Qualified Code(s): W19.XXXA - Unspecified fall, initial encounter (5) Debility: Status: Acute Code(s): R53.81 - Other malaise Medications at Discharge Home Medications aspirin 81 mg tablet,delayed release 81 mg PO DAILY@0800 01/15/17 calcium carbonate 600 mg-vitamin D3 20 mcg (800 unit) tablet (Caltrate with Vitamin D3) 1 ea PO DAILY 01/15/17 gabapentin 100 mg capsule (Neurontin) 300 mg PO DAILY neuropathy 01/15/17 xpgzbgebfjh-itbxkhmcv-mkh C-Mn 500 mg-400 mg capsule 2 ea PO DAILY 01/15/17 meloxicam 15 mg tablet (Mobic) 15 mg PO DAILY 01/15/17 multivit with fkopkggq-kjtc-FJ-lutein 8 mg iron-400 mcg-300 mcg tablet (Centrum Silver Women) 1 ea PO DAILY 01/15/17 pravastatin 20 mg tablet 20 mg PO QHS 01/15/17 sertraline 50 mg tablet 100 mg PO DAILY 01/15/17 vit C 250 mg-vit E 90 mg-zinc 40 mg-copper 1 us-jomdjs-pbwnwb capsule (PreserVision AREDS-2) 2 ea PO DAILY 10/14/17 docusate sodium 100 mg capsule 100 mg PO BID #30 caps 06/16/18 magnesium hydroxide 400 mg/5 mL oral suspension 30 ml PO DAILY PRN PRN Constipation ##14 06/16/18 diltiazem HCl 120 mg capsule,extended release 24 hr 120 mg PO DAILY 11/20/21 losartan 100 mg tablet 100 mg PO DAILY 01/04/23 nystatin 100,000 unit/gram topical cream 1 unit topical DAILY 01/04/23 oxybutynin chloride 10 mg tablet,extended release 24 hr 10 mg PO DAILY 01/04/23 Hospital Course Operations None Procedures EKG and - (CTA of the chest/CT of the brain/chest x-ray/CT of the cervical spine) Summary of Care Provided Minutes Spent on Discharge: 26 Hospital Course: Mrs. Samano is an 87-year-old white female who presented to the emergency department at [facility] on 01/04/2023 after suffering a fall at approximately 2 PM on the day of presentation. She hit her head at that time but had no loss of consciousness. She was sent to the emergency department from her assisted living facility by the nurses on the evening of admission as she was found to have a systolic pressure pressure in the 190s. She had no headache at the time of presentation and reported that previously she had been functioning well but had been having more falls as of late. She indicated to me that prior to moving to assisted living she was having significant amount of falls at home. Vital signs in ED upon presentation demonstrated a T98.5, heart 84, BP 185/95, respiratory rate 15, initially reported as 88% on room air improving to 94% on 1 L nasal cannula.? Labs were overall unremarkable.? Chest x-ray showed a mildly more prominent appearance of the descending thoracic aortic margin compared to 2017.? Her rapid COVID was negative.? CT of the brain showed no acute intracranial abnormality with mild chronic changes in the CT of the cervical spine showed no acute posttraumatic abnormality.? Respiratory viral panel is negative. Patient was able to be quickly weaned off of supplemental oxygen on the a.m. of 01/04/2023. A CTA of her chest was performed and negative for any acute PE or acute findings. She does have evidence of previous granulomatous infection and mild bilateral atelectatic changes. She was evaluated by physical and Occupational Therapy and they recommended ongoing therapy but felt she would be safe to go back to her assisted living environment with outpatient therapy services. This was set up for her prior to discharge. After restarting her home patient of the MELANIA 100 was 8 and diltiazem 120 mg daily her blood pressures were ranging anywhere from 120-150 systolic and 65-90 diastolic. She was instructed to continue taking these at home. No new medications were added and she was discharged back to assisted living facility in stable conditions on 01/05/2023. We have instructed her to follow-up with her primary care physician to be seen within the next 2 weeks for hospital follow-up. Discharge diagnoses: Acute hypoxia-resolved Falls Debility Adult failure to thrive Chronic normocytic anemia Hypertension Hyperlipidemia Chronic pain Fibromyalgia Spinal stenosis Urinary incontinence Physical Exam Const alert, oriented x3, no apparent distress, healthy appearing and well nourished Constitutional Narrative: Obese, elderly white female up walking in the hallways with PT/OT utilizing a wheeled walker, appears comfortable and nontoxic, very pleasant General Appearance: cooperative, comfortable, well kempt and well developed Orientation / Consciousness: awake, oriented to person, oriented to place and oriented to time Exam Limitations: no limitations Nutritional Appearance: obese HEENT normocephalic, head/scalp atraumatic and moist oral mucous membranes HEENT Narrative: Mild to moderate hearing loss, Mallampati 2, no thrush, dentition is poor Eyes PERRL, EOMs intact bilaterally and conjunctivae normal Eyes Narrative: No scleral icterus Neck no lymphadenopathy and supple Neck Narrative: Trachea midline, no thyroid enlargement Resp normal respiratory effort, no retractions, no use of accessory muscles and clear to auscultation bilaterally Auscultation: Negative for rales, rhonchi or wheezes Cardio regular rate, regular rhythm, S1 normal heart sound, S2 normal heart sound, no murmurs, no rub, no gallops and no clicks GI normal to inspection, nondistended, normoactive bowel sounds, soft to palpation and non-tender Extremity no clubbing, cyanosis or edema Extremity Narrative: 2+ pedal pulses Skin no rashes or lesions noted, no wounds, skin turgor normal and no jaundice Neuro oriented x3, CN's II-XII intact bilaterally, moves all extremities and no focal motor deficits Speech: speech normal Psych affect normal Psych Narrative: Very pleasant, properly interactive Weight / BMI Weight Weight: 80.7 kg Body Mass Index (BMI) 34.7 ABG / Lab / Microbiology Data Result Diagrams: 01/04/23 06:45 01/04/23 06:45 Microbiology: Microbiology 01/04/23 03:55 Mucosa - Nasopharyngeal Respiratory Panel (PCR) - Final 01/03/23 23:22 Nasal Secretion SARS-CoV-2 Antigen (Rapid) - Final Radiography Diagnostic Testing: Radiology Impression Chest CTA 01/04/23 07:48 IMPRESSION: 1. No pulmonary embolus or acute cardiopulmonary disease. 2. Sequela of previous granulomatous infection with mild bilateral atelectatic changes. 3. Cholelithiasis. Follow-up as clinically warranted. 4. Other nonurgent findings within body of report. Electronically Signed: Mati Spence MD at 23:52 EDT , D/C Instructions Discharge Diet: Low fat / Low cholesterol Discharge Activity: Return to Normal Activity Meaningful Use Info Meaningful Use Diagnoses (Choose all that apply): None applicable Discharge Plan Admission Admit Date/Time: 01/04/23 02:18 Primary Reason for Your Visit: Fall Attending Provider: Citlalli Guzman Primary Care Provider: Mati Landon Consulting Providers: Destini Castillo Instructions Additional Instructions / Restrictions: 1. Outpt PT and OT will need to be arranged after discharge Discharge Orders/Prescriptions Prescriptions: Continued meloxicam [Mobic] 15 MG tablet 15 mg PO DAILY aspirin 81 MG tablet 81 mg PO DAILY@0800 pravastatin 20 MG tablet 20 mg PO QHS gabapentin [Neurontin] 100 MG capsule 300 mg PO DAILY sertraline 50 MG tablet 100 mg PO DAILY ghqnwqkkbxw-szdbnjlmw-zgr C-Mn 1 EACH capsule 2 ea PO DAILY Centrum Silver Women 1 EACH tablet 1 ea PO DAILY calcium carbonate-vitamin D3 [Caltrate with Vitamin D3] 1 EACH tablet 1 ea PO DAILY PreserVision AREDS-2 1 EACH capsule 2 ea PO DAILY magnesium hydroxide 30 ML suspension 30 ml PO DAILY PRN PRN (Reason: Constipation) Qty: 14 0RF docusate sodium 100 MG capsule 100 mg PO BID Qty: 30 0RF diltiazem HCl 120 mg capsule,extended release 24hr 120 mg PO DAILY oxybutynin chloride 10 mg Tablet Extended Release 24hr 10 mg PO DAILY nystatin 100,000 unit/gram cream 1 unit TOPICAL DAILY losartan 100 mg tablet 100 mg PO DAILY Referrals / Follow Up: Mati Landon MD [Primary Care Provider] - Within 2 Weeks Disposition Disposition (needs filled in before D/C Order can be placed): Assisted Living Charges/Coding Visit Charges Inpatient E&M: 72754 Disch Hosp
--- NOTE | 2023-01-05 12:08 | CASEMGMT ---
Outpt order on dc summary per request for therapy at [facility].
--- NOTE | 2023-01-05 12:18 | PHA.DC.MR ---
Pharmacy Service has performed discharge medication reconciliation for this patient. The patient's discharge medication list was reviewed for discrepancies and discrepancies were resolved. Home Medications aspirin 81 mg tablet,delayed release 81 mg PO DAILY@0800 01/15/17 calcium carbonate 600 mg-vitamin D3 20 mcg (800 unit) tablet (Caltrate with Vitamin D3) 1 ea PO DAILY 01/15/17 gabapentin 100 mg capsule (Neurontin) 300 mg PO DAILY neuropathy 01/15/17 omadloamceq-pnjlceiey-xss C-Mn 500 mg-400 mg capsule 2 ea PO DAILY 01/15/17 meloxicam 15 mg tablet (Mobic) 15 mg PO DAILY 01/15/17 multivit with mllgytkc-zfbx-KD-lutein 8 mg iron-400 mcg-300 mcg tablet (Centrum Silver Women) 1 ea PO DAILY 01/15/17 pravastatin 20 mg tablet 20 mg PO QHS 01/15/17 sertraline 50 mg tablet 100 mg PO DAILY 01/15/17 vit C 250 mg-vit E 90 mg-zinc 40 mg-copper 1 mx-hnboyw-kjrxgw capsule (PreserVision AREDS-2) 2 ea PO DAILY 10/14/17 docusate sodium 100 mg capsule 100 mg PO BID #30 caps 06/16/18 magnesium hydroxide 400 mg/5 mL oral suspension 30 ml PO DAILY PRN PRN Constipation ##14 06/16/18 diltiazem HCl 120 mg capsule,extended release 24 hr 120 mg PO DAILY 11/20/21 losartan 100 mg tablet 100 mg PO DAILY 01/04/23 nystatin 100,000 unit/gram topical cream 1 unit topical DAILY 01/04/23 oxybutynin chloride 10 mg tablet,extended release 24 hr 10 mg PO DAILY 01/04/23
[2023-01-05 14:11] VITALS: BP 109/47; PULSE 88; RESP 12; TEMP 36.5; O2SAT 95
--- NOTE | 2023-01-05 14:31 | NURSING ---
Called report to Renetta dao nurse at [facility] and told her pt was going to be back today. Her brother Simone aware and will be here to pick her up sometime today.
== END 2023-01-05 15:53 | disposition home or self-care (01) ==
LOC: ED 01-04 02:19 → MS3 01-04 03:20
PROVIDERS: Admitting Provider Family Medicine; Emergency Provider Emergency Medicine; PCP Family Medicine; Visit Provider Internal Medicine
DX: I10 Essential (primary) hypertension (principal); S09.90XA Unspecified injury of head, initial encounter; W19.XXXA Unspecified fall, initial encounter; R32 Unspecified urinary incontinence; R09.02 Hypoxemia; D64.9 Anemia, unspecified; M79.7 Fibromyalgia; Z79.82 Long term (current) use of aspirin; F41.9 Anxiety disorder, unspecified; E78.5 Hyperlipidemia, unspecified; Z20.822 Contact with and (suspected) exposure to COVID-19; R62.7 Adult failure to thrive; Z79.891 Long term (current) use of opiate analgesic; R53.81 Other malaise; Z79.899 Other long term (current) drug therapy; Z66 Do not resuscitate; F32.A Depression, unspecified; R29.6 Repeated falls
CPT/HCPCS: 36415; 70450; 71046; 71275; 72125; 80048; 80053; 84145; 85025; 87633; 87635; 87811; 94668; 96361; 96372; 96374; 96376; 97162; 97166; 97530; 97535; 99221; 99252; 99285; J7030; Q9967; A4216; G0378; G0463; U0003; U0005

== ENCOUNTER → 2023-07-22 | Outpatient (CLI) | payer MEDICARE, OTHER, SELFPAY ==
--- NOTE | 2023-07-22 09:45 | RAD_ITS ---
STUDY: X-RAY - LEFT SHOULDER REASON FOR EXAM: Female, 88 years old. Pain, decreased range of motion TECHNIQUE: 4 view(s) of the shoulder. COMPARISON: None. 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 There is degenerative arthrosis of the acromioclavicular joint without inferior osseous spur formation. Normal acromion. There is demineralization of the humerus and visualized osseous structures. The soft tissue structures are unremarkable. Normal visualized pulmonary apex. RAD/Shoulder min 2 Views IMPRESSION: Osteopenia with degenerative arthrosis, no demonstrated fracture or suspicious osseous lesion Electronically Signed: Tono Schroeder MD at 9:18 EDT ,
== END | disposition home or self-care (01) ==
LOC: RAD 09:25
PROVIDERS: PCP Family Medicine; Referring Provider Anesthesiology Pain Medicine; Visit Provider Anesthesiology Pain Medicine
DX: M19.012 Primary osteoarthritis, left shoulder (principal)
CPT/HCPCS: 73030

== ENCOUNTER → 2023-09-10 | Outpatient (REF) | payer MEDICARE, OTHER, SELFPAY ==
[2023-09-10 08:43] LABS: Absolute Lymphocyte Count 1.53 X10^3/uL (0.83-4.51); Absolute Neutrophil Count 5.8 X10^3/uL (2.0-7.7); Basophil# 0.08 X10^3/uL; Basophil% 0.9 % (0-1); Eosinophil# 0.39 X10^3/uL; Eosinophils% 4.6 % (0-5); Hematocrit 36.6 % (37-47); Hemoglobin 11.5 g/dL (12.0-15.0); Lymphocyte # 1.53 X10^3/ul (0.83-4.51); Mean Corp Hgb Conc 31.4 g/dL (32-36); Mean Corpuscular Volume 98.7 fL (81-99); Mean Platelet Vol. 10.5 fl (6.2-12.0); Monocyte# 0.66 X10^3/uL; Monocyte% 7.8 % (0-10); NRBC Flagged by Analyzer 0 % (0-5); Neutrophil % 68.3 % (47-70); Platelet Count 247 K/mm3 (150-450); RBC Distribution Width CV 13.9 % (11.6-14.6); RBC Distribution Width SD 50.6 fl (35.1-43.9); Red Blood Count 3.71 M/mm3 (4.2-5.4); White Blood Count 8.5 K/mm3 (4.4-11.0)
[2023-09-10 08:54] LABS: ALB/GLOB Ratio 0.8 RATIO (0.9-2.4); AST(SGOT) 22 U/L (15-37); Alanine Aminotransfer ALT/SGPT 28 U/L (13-56); Albumin, Serum 3.2 g/dL (3.2-5.0); Alkaline Phosphatase 101 U/L (45-117); Anion Gap 4 (5-15); BUN 32 mg/dL (7-18); BUN/Creat Ratio 42.4 RATIO (10-20); Calcium,Total 10.4 mg/dL (8.5-10.1); Chloride 111 mmol/L (98-107); Cholesterol 146 mg/dL (200); Creatinine, Serum 0.76 mg/dL (0.55-1.02); EST Glomerular Filtration Rate 77 mL/min (>60); Est Glom Filt Rate - Afr Amer 93 mL/min (>60); Globulin 3.9 g/dL (2.2-4.2); Glucose 106 mg/dL (74-106); High Density Lipoprotein 64 mg/dL; Potassium 4.4 mmol/L (3.5-5.1); Protein, Total 7.1 g/dL (6.4-8.2); Sodium Level 141 mmol/L (136-145); Triglycerides 60 mg/dL; Very Low Density Lipoprotein 12 mg/dL (5-40)
== END ==
LOC: OLS.SWAL 05:00
PROVIDERS: PCP Family Medicine; Visit Provider Family Medicine
DX: M19.09 Primary osteoarthritis, other specified site (principal); I10 Essential (primary) hypertension; E78.5 Hyperlipidemia, unspecified
CPT/HCPCS: 36415; 80053; 80061; 85025

== ENCOUNTER → 2023-11-16 | Outpatient (CLI) | payer MEDICARE, OTHER, SELFPAY ==
--- NOTE | 2023-11-16 15:14 | VDLE_ITS ---
Reason For Study: RLE edema RIGHT LEFT GSV is normal. CFV is compressible, spontaneous, phasic, CFV is compressible, spontaneous, phasic, competent, and demonstrates normal competent and demonstrates normal augmentation. augmentation. FV is compressible, spontaneous, phasic, competent and demonstrates normal augmentation. POP V is compressible, spontaneous, phasic, competent and demonstrates normal augmentation. PTV is compressible. RT PerV is compressible. Acute deep vein thrombosis is noted in the T/P Trunk. It is dilated and NONCOMPRESSIBLE. Procedure This is a venous duplex using B-mode, color flow and spectral Doppler. Exam performed in department. The exam was diagnostic. Difficult to image calf veins due to swelling. A preliminary report was called and/or faxed to Harry Valerio. VL/Venous Duplex US, Unilateral Interpretation Summary Acute deep vein thrombosis is noted in the right tibio-peroneal trunk. Ordering Physician: Harry Valerio Performed By: Buddy Miranda RVT
--- OUTSIDE RECORDS SUMMARY | 2023-11-16 15:41 | XMS RPT_ITS | CCD ---
Author Name Unknown Address [address] [place] [address] Organization [facility] Care Team Providers Care Laundry Folder Name Role Phone Cyndi Renee Unavailable Unavailable PROVIDER, UNKNOWN Unavailable Unavailable LEONOR, JORI-CHI Unavailable Unavailable Isael Reynoso Unavailable Unavailable PROVIDER, UNKNOWN Unavailable Unavailable LEONOR, JORI-CHI Unavailable Unavailable Cyndi Renee Unavailable Unavailable PROVIDER, UNKNOWN Unavailable Unavailable LEONOR, JORI-CHI Unavailable Unavailable Jordan Levine MD Primary Care Provider Jordan Levine MD Primary Care Provider Jordan Levine MD Primary Care Provider Jordan Levine MD Primary Care Provider JORDAN LVEINE Primary Care Unavailable JORDAN LEVINE Attending Unavailable JORDAN LEVINE Primary Care Unavailable JORDAN LEVINE Attending Unavailable JORDAN LEVINE Primary Care Unavailable JORDAN LEVINE Referring Unavailable JORDAN LEVINE Primary Care Unavailable JORDAN LEVINE Attending Unavailable Allergies Allergy Classification Reported Allergen(s) Allergy Type Date of Onset Reaction(s) Facility (13 sources) guaiFENesin; Translations: [GUAIFENESIN] Drug Allergy 07-30-2009 [facility] Work Phone: (13 sources) Iodine; Translations: [IODINE] Drug Allergy 07-30-2009 [facility] Work Phone: Medications Current Medications Medication Drug Class(es) Dates Sig (Normalized) Sig (Original) gabapentin 300 mg oral capsule (13 sources) Anti-epileptic Agent Start: 03-18-2023 End: 09-14-2023 take 1 capsule by mouth once daily gabapentin (NEURONTIN) 300 mg capsule Indications: Lumbar radiculopathy Take 1 capsule by mouth once daily for 180 days. 90 capsule 1 03/18/2023 09/14/2023 Active Completed/Discontinued Medications Medication Drug Class(es) Dates Sig (Normalized) Sig (Original) acetaminophen 325 mg oral tablet (7 sources) Start: 01-19-2023 take 2 tablets by mouth every six hours as needed acetaminophen (TYLENOL) 325 mg tablet Take 2 tablets by mouth every 6 hours as needed for pain. 0 01/19/2023 Active Problems Active Problems Problem Classification Problem Date Documented Da te Episodic/Chronic Diabetes mellitus without complication (1 source) Increased glucose level; Translations: [Other abnormal glucose] Episodic Disorders of lipid metabolism (15 sources) Mixed hyperlipidemia; Translations: [Mixed hyperlipidemia] Onset: 03-14-2021 Chronic Essential hypertension (19 sources) Essential (primary) hypertension; Translations: [Essential hypertension] Onset: 03-11-2018 Chronic External Injury - Fall (2 sources) Unspecified fall, initial encounter; Translations: [Unspecified fall, initial encounter] Onset: 03-10-2018 Fracture of upper limb (4 sources) Unspecified fracture of the lower end of left radius, initial encounter for closed fracture; Translations: [Unspecified fracture of the lower end of left radius, subsequent encounter for closed fracture with routine healing] Onset: 03-10-2018 Episodic Mycoses (3 sources) Candidiasis of skin; Translations: [Candidiasis of skin and nail] Episodic Neoplasms of unspecified nature or uncertain behavior (12 sources) Monoclonal gammopathy of uncertain significance; Translations: [Monoclonal gammopathy] Onset: 11-24-2018 11-24-2018 Chronic Occlusion or stenosis of precerebral arteries (13 sources) Bilateral stenosis of carotid arteries; Translations: [Occlusion and stenosis of bilateral carotid arteries] Onset: 09-20-2019 Chronic Osteoarthritis (15 sources) Unspecified osteoarthritis, unspecified site; Translations: [Osteoarthritis] Onset: 08-12-2013 Chronic Osteoporosis (2 sources) Age-related osteoporosis without current pathological fracture; Translations: [Age-related osteoporosis w/o current pathological fracture] Onset: 03-10-2018 Chronic Other aftercare (1 source) Post-discharge follow-up; Translations: [Encounter for follow-up examination after completed treatment for conditions other than malignant neoplasm] Episodic Other and ill-defined heart disease (12 sources) Left ventricular hypertrophy; Translations: [Cardiomegaly] Onset: 09-20-2019 09-20-2019 Chronic Other endocrine disorders (13 sources) Primary hyperparathyroidism ; Translations: [Primary hyperparathyroidism ] Onset: 07-20-2019 Chronic Other injuries and conditions due to external causes (1 source) At high risk for fall; Translations: [History of falling] Episodic Other nervous system disorders (4 sources) Polyneuropathy, unspecified; Translations: [Carpal tunnel syndrome, left upper limb] Onset: 03-11-2018 Chronic Other non-traumatic joint disorders (2 sources) Pain in right hip joint; Translations: [Pain in right hip] Episodic Other non-traumatic joint disorders (1 source) Chronic pain of left upper limb; Translations: [Pain in left shoulder] 05-11-2023 Episodic Other nutritional; endocrine; and metabolic disorders (2 sources) Obesity, unspecified; Translations: [Obesity, unspecified] Onset: 03-11-2018 Chronic Other nutritional; endocrine; and metabolic disorders (12 sources) Hypercalcemia; Translations: [Hypercalcemia] Onset: 07-20-2019 07-20-2019 Chronic Retinal detachments; defects; vascular occlusion; and retinopathy (14 sources) Unspecified macular degeneration; Translations: [Degenerative disorder of macula ] Onset: 03-11-2018 05-25-2019 Chronic Spondylosis; intervertebral disc disorders; other back problems (20 sources) Lumbar radiculopathy; Translations: [Radiculopathy, lumbar region] Onset: 08-12-2013 Episodic Unclassified (2 sources) Body mass index (BMI) 34.0-34.9, adult; Translations: [Body mass index (BMI) 34.0-34.9, adult] Onset: 03-11-2018 Chronic Unclassified (2 sources) Acquired absence of both cervix and uterus; Translations: [Acquired absence of both cervix and uterus] Onset: 03-11-2018 Episodic Past or Other Problems Problem Classification Problem Date Documented Da te Episodic/Chronic Other bone disease and musculoskeletal deformities (12 sources) Osteopenia; Translations: [Other specified disorders of bone density and structure, unspecified site] Onset: 07-20-2019 07-20-2019 Episodic Other connective tissue disease (12 sources) Calcaneal spur; Translations: [Calcaneal spur, unspecified foot] Onset: 07-30-2009 07-30-2009 Episodic Other nervous system disorders (13 sources) Abnormal gait; Translations: [Unspecified abnormalities of gait and mobility] Onset: 08-12-2013 Episodic Sprains and strains (12 sources) Sprain of foot; Translations: [Unspecified sprain of unspecified foot, initial encounter] Onset: 07-30-2009 07-30-2009 [facility] Results Test Name Value Interpretation Reference Range Facil ity Vital Signs Date Time Vital Sign Value Performing Clinician Faci lity 01-19-2023 14:27-0400 Body weight 82.64 kg Jordan Levine MD Work Phone: [facility] 01-19-2023 14:27-0400 Diastolic blood pressure 76 mm[Hg] Jordan Levine MD Work Phone: [facility] 01-19-2023 14:27-0400 Heart rate 68 /min Jordan Levine MD Work Phone: [facility] 01-19-2023 14:27-0400 Respiratory rate 16 /min Jordan Levine MD Work Phone: [facility] 01-19-2023 14:27-0400 Systolic blood pressure 138 mm[Hg] Jordan Levine MD Work Phone: [facility] 09-18-2022 14:05-0500 Body weight 82.64 kg Jordan Levine MD Work Phone: [facility] 09-18-2022 14:05-0500 Diastolic blood pressure 72 mm[Hg] Jordan Levine MD Work Phone: [facility] 09-18-2022 14:05-0500 Heart rate 82 /min Jordan Levine MD Work Phone: [facility] 09-18-2022 14:05-0500 Respiratory rate 16 /min Jordan Levine MD Work Phone: [facility] 09-18-2022 14:05-0500 Systolic blood pressure 124 mm[Hg] Jordan Levine MD Work Phone: [facility] 06-03-2022 15:13-0400 Body weight 81.47 kg Jordan Levine MD Work Phone: [facility] 06-03-2022 15:13-0400 Diastolic blood pressure 84 mm[Hg] Jordan Levine MD Work Phone: [facility] 06-03-2022 15:13-0400 Heart rate 72 /min Jordan Levine MD Work Phone: [facility] 06-03-2022 15:13-0400 Respiratory rate 20 /min Jordan Levine MD Work Phone: [facility] 06-03-2022 15:13-0400 Systolic blood pressure 136 mm[Hg] Jordan Levine MD Work Phone: [facility] 03-16-2022 15:20-0400 Body weight 83.1 kg Jordan Levine MD Work Phone: [facility] 03-16-2022 15:20-0400 Diastolic blood pressure 78 mm[Hg] Jordan Levine MD Work Phone: [facility] 03-16-2022 15:20-0400 Heart rate 82 /min Jordan Levine MD Work Phone: [facility] 03-16-2022 15:20-0400 Respiratory rate 16 /min Jordan Levine MD Work Phone: [facility] 03-16-2022 15:20-0400 SaO2% (BldA) [Mass fraction] 93 % Jordan Levine MD Work Phone: [facility] 03-16-2022 15:20-0400 Systolic blood pressure 128 mm[Hg] Jordan Levine MD Work Phone: [facility] Encounters Encounter Date Encounter Type Care Provider Facility Start: 09-21-2023 End: 09-21-2023 ambulatory JORDAN LEVINE Facility:[facility] Start: 09-08-2023 Telephone encounter Jordan walsh MD Work Phone: [facility] Plan of Treatment Date Care Activity Detail Author Start: 11-20-2031 Urine microalbumin profile [facility] Start: 08-31-2030 Urine microalbumin profile DTAP,TDAP,TD (3 - Td or Tdap) [facility] Start: 03-16-2026 DIABETES SCREEN DIABETES SCREEN [facility] Start: 03-16-2026 Diabetes Screening Diabetes Screening [facility] Start: 09-15-2025 DIABETES SCREEN DIABETES SCREEN [facility] Start: 03-09-2025 DIABETES SCREEN DIABETES SCREEN [facility] Start: 06-25-2023 Covid-19 Vaccine ( season) Covid-19 Vaccine () [facility] Start: 06-25-2023 Influenza vaccination [facility] Start: 03-18-2023 End: 05-18-2023 CBC panel - Blood by Automated count CBC Lab Routine Essential hypertension Expected: 03/18/2023 (Approximate), Expires: 05/18/2023 [facility] Work Phone: Immunizations Immunization Date Immunization Notes Care Provider Marianela regalado 09-10-2022 influenza, high dose seasonal, preservative-free Jordan Levine MD Work Phone: [facility] 09-10-2022 influenza virus vaccine, unspecified formulation Jordan Levine MD Work Phone: [facility] 11-20-2021 tetanus toxoid, redu amanda diphtheria toxoid, and acellular pertussis vaccine, adsorbed Jordan Levine MD Work Phone: [facility] 08-04-2021 COVID-19 vaccine, ag e 12+ yr (PFIZER-BIONTECH - PURPLE TOP) Jordan Levine MD Work Phone: [facility] 07-29-2021 influenza, high dose seasonal, preservative-free Jordan Levine MD Work Phone: [facility] 11-26-2020 COVID-19 vaccine, ag e 12+ yr (PFIZER-BIONTECH - PURPLE TOP) Jordan Levine MD Work Phone: [facility] 11-09-2020 COVID-19 vaccine, ag e 12+ yr (PFIZER-BIONTECH - PURPLE TOP) Jordan Levine MD Work Phone: [facility] 08-31-2020 tetanus toxoid, redu amanda diphtheria toxoid, and acellular pertussis vaccine, adsorbed Jordan Levine MD Work Phone: [facility] 04-29-2015 tetanus toxoid, redu amanda diphtheria toxoid, and acellular pertussis vaccine, adsorbed Jordan Levine MD Work Phone: [facility] 08-24-1997 influenza virus vaccine, whole virus Jordan Levine MD Work Phone: [facility] 08-04-1993 influenza virus vaccine, whole virus Jordan Levine MD Work Phone: [facility] Payers Date Payer Category Payer Medicare [id number] 2015 Private Health Insurance HUMANA HUMANA MEDICARE SUPPLEMENT [id number] 2015-Present [phone] [address] [address] [place] [address] Indemnity [id number] 2015 Private Health Insurance HUMANA HUMANA MEDICARE SUPPLEMENT [id number] 2015-Present [phone] [address] [address] [place] [address] Indemnity [id number] 2001 Medicare 2001 Medicare MEDICARE MEDICAR E A AND B [id number] 2001-Present [phone] [address] [address] [place] [address] Medicare [id number] 2001 Medicare [id number] Social History Date Type Detail Facility Start: 05-02-2018 End: 09-18-2022 Tobacco smoking status NHIS Never smoked tobacco [facility] Start: 03-16-2022 End: 03-18-2023 Alcohol intake Current non-drinker of alcohol (finding) [facility] Start: 03-12-2021 End: 09-18-2022 History SDOH Alcohol Frequency 1 [facility] Start: 03-12-2021 End: 09-18-2022 History SDOH Social Connections Phone 5 [facility] Start: 03-12-2021 End: 09-18-2022 History SDOH Social Connections Religious 3 [facility] Start: 03-12-2021 End: 09-18-2022 History SDOH Social Connections Living 7 [facility] Start: 03-12-2021 End: 09-18-2022 History SDOH Physical Activity DPW 0 [facility] Start: 03-12-2021 End: 09-18-2022 History SDOH Stress 2 [facility] Start: 03-11-2021 Education 18 [facility] Start: 1935 Sex Assigned At Female C [facility] Start: 03-06-2022 End: 09-18-2022 Exposure to SARS-CoV-2 (event) Not sure [facility] Start: 05-02-2018 End: 09-18-2022 Tobacco use and exposure Smokeless tobacco non-user [facility] Start: 09-17-2022 End: 11-20-2022 History of Social function [facility] Start: 09-17-2022 End: 11-20-2022 Social connection and isolation panel [facility] Do you belong to any clubs or organizations such as moravian groups, unions, fraternal or athletic groups, or school groups? Yes [facility] Are you now , , , , never or living with a partner? Never [facility] How often to you hav e a drink containing alcohol? Never [facility] How many standard dr inks containing alcohol do you have on a typical day? Patient does not drink [facility] Do you feel stress - tense, restless, nervous, or anxious, or unable to sleep at night because your mind is troubled all the time - these days [OSQ] Only a little [facility] (I/We) worried wheth er (my/our) food would run out before (I/we) got money to buy more. Never true [facility] In the past 12 month s, was there a time when you were not able to pay the mortgage or rent on time? No [facility] Start: 09-08-2021 Gender identity Identifies as female gender (finding) [facility] Start: 09-08-2021 Sexual orientation Heterosexual (fin ding) [facility] Clinical Notes 03-16-2022 to 09-21-2023 Telephone Encounter - Stacey Mueller RN - 09/09/2023 9:48 AM ESTTelephone Encounter - Jordan Levine MD - 09/09/2023 9:03 AM ESTTelephone Encounter - Stacey Mueller RN - 09/08/2023 2:46 PM EST Note Date & Type Note Facility 09-21-2023 Note HNO ID: [id number] Author: Jordan Levine MD Service: ? Author Type: Physician Type: Progress Notes Filed: 09/21/2023 4:57 PM Note Text: Chief Complaint Patient presents with: 6 Month Exam HPI Terrie Samano is a 88 year old female who presents here today for 6 month follow up. Resides at [facility]. Pt feels that it is easier for her to get blood work done at [facility]. Uses a walker and a Rolator. She has had falls. She does not do steps well, she uses a lift to get on and off the bus. No bowel, GI, or urinary issues. Follows with Urologist. She is taking Gemtesa 75 mg daily. No longer on Ditropan. She has a hard time telling when she needs to urinate especially at night. She has a pad on the bed and then she puts some towels down on top of the pad to keep it dry at night. HTN: Taking Losartan 100 mg daily, Cardizem 120 mg daily. No chest pains, dizziness, or SOB. Lipid: Taking Pravastatin 20 mg daily and ASA 81 mg daily. Depression/AGUILAR: Stable with use of Zoloft 50 mg 2 pills once daily. Pain: Stable with Mobic 15 mg daily and Gabapentin 300 mg daily. She has been following with Dr. Leger, Pain management, had injection in left shoulder/back in Jul and injection in neck Sep 01. She followed up a week ago with them. She has limited ROM of the left shoulder, mentioned 50% improvement. She has severe arthritis. Pt states that she tries to stay active and keep moving. Has issues with sleeping more in the early evening. She states that for the last year she has noticed that she falls asleep around 7 pm while watching the news and then doesn't get up again till around 10 pm. She states that she doesn't like falling asleep that early, feels she has things she could be doing. Cough: she has been taking smaller bites, smaller sips of fluids. She coughs at night some. She is working with a Speech Therapist for this. Past medical history, appointments, medications, allergies reviewed. Previous Medical History PAST MEDICAL HISTORY Diagnosis Date Chronic back pain Followed by Dr. Whitehead Macular degeneration Mixed hyperlipidemia Hyperlipidemia PMH - PAST MEDICAL HISTORY OF 2001 left eye detached retina Unspecified essential hypertension Essential hypertension Previous Surgical History PAST SURGICAL HISTORY Procedure Laterality Date APPENDECTOMY 12/1962 PAST SURGICAL HISTORY OF cataract sx left eye TONSILLECTOMY AND ADENOIDECTOMY T/A (under age 14 years) TOTAL ABDOMINAL HYSTERECT W/WO RMVL TUBE OVARY 04/07/1978 Hysterectomy, CAROLE Family History FAMILY HISTORY Problem Relation Age of Onset Hypertension Mother Colon Cancer Mother Hypertension Father Prostate Cancer Father Colon Cancer Sister Diabetes Brother Patient Allergies ALLERGIES Allergen Reactions Cough Syrup [Guaife* Rash Iodine Rash Current Medications Current Outpatient Medications on File Prior to Visit Medication Sig meloxicam (MOBIC) 15 mg tablet Take 1 tablet by mouth once daily. losartan (COZAAR) 100 mg tablet Take 1 tablet by mouth once daily. dilTIAZem CD (CARDIZEM CD) 120 mg 24 hr capsule Take 1 capsule by mouth once daily. pravastatin (PRAVACHOL) 20 mg tablet Take 1 tablet by mouth once daily. gabapentin (NEURONTIN) 300 mg capsule Take 1 capsule by mouth once daily for 180 days. sertraline (ZOLOFT) 50 mg tablet Take 2 tablets by mouth once daily. oxybutynin ER (DITROPAN XL) 10 mg 24 hr tablet Take 1 tablet by mouth once daily. acetaminophen (TYLENOL) 325 mg tablet Take 2 tablets by mouth every 6 hours as needed for pain. carboxymethylcellulose sodium (REFRESH OPHTHALMIC) Use 1 Drop in eyes as needed. triamcinolone (KENALOG) 0.025 % cream Apply to affected area twice daily. vit C/E/Zn/coppr/lutein/zeaxan (PRESERVISION AREDS 2 ORAL) Take 1 capsule by mouth twice daily. calcium carbonate(CALTRATE 600 600 MG (1,500 MG) TAB) Take by mouth once daily. aspirin(ECOTRIN LOW STRENGTH 81 MG TAB) Take one(1) tablet daily. No current facility-administered medications on file prior to visit. Social History Social History Tobacco Use Smoking status: Never Smokeless tobacco: Never Vaping Use Vaping Use: Never used Substance Use Topics Alcohol use: No Drug use: No EXAM: BP 128/74 Pulse 64 Resp 16 Wt 79.7 kg (175 lb 9.6 oz) BMI 33.18 kg/m? General Appearance: Well appearing, alert, in no acute distress, well-hydrated, well nourished. and Walker. Lungs: Lungs clear to auscultation. No wheezing, rhonchi, rales.. Heart: RRR without murmur, gallop, or rubs. No ectopy. Health Maintenance List Shingrix Vaccine(1 of 2) Never done RSV Vaccine(1 - 1-dose 60+ series) Never done Pneumococcal Vaccine: 65+(1 - PCV) Never done Influenza Vaccine(1) due on 06/25/2023 Covid-19 Vaccine(5 - 2022-24 season) due on 06/25/2023 Diabetes Screening due on 03/16/2026 DTaP,Tdap,Td Vaccine(4 - Td or Tdap) due on 11/20/2031 Bon (more content not included)... [facility] 09-09-2023 Miscellaneous Notes Lab orders faxed to [facility] as requested. Pt updated. Stacey Mueller RN OK to fax lab orders to [facility] so they can be drawn there Jordan Levine MD Patient will be seeing Dr. Levine on 09/21 and has lab orders placed to have completed prior to appt. Pt resides at [facility] and asking if she can have her labs drawn there, by [facility] laborer/key man? If agreeable, patient needs current lab orders faxed to [facility] at FAX #: [phone]. Please call patient with response. Thank you. documented in this encounter [facility] 06-14-2023 Miscellaneous Notes The following approved medication requests have been transmitted electronically. Requested Prescriptions Signed Prescriptions Disp Refills nystatin (MYCOSTATIN) cream 30 g 2 Sig: Apply to affected area twice daily for 14 days. Authorizing Provider: JORDAN LEVINE Ma OK to refill as ordered Jordan Levine MD Terrie Samano is calling Jordan Levine MD today to request not on current list: nystatin (MYCOSTATIN) cream 30 g 2 12/23/2022 01/06/2023 Sig: Apply to affected area twice daily for 14 days. Sent to pharmacy as: nystatin (MYCOSTATIN) cream Class: Normal Route: TOPICAL Order: [id number] E-Prescribing Status: Receipt confirmed by pharmacy (12/23/2022 12:30 PM EST) Not on current list, but she does need 90 day supply to [facility]. Please notify patient once this is sent. Patient has been identified by name and birthdate. Duration of symptoms: N/A Person calling: self Call patient at: at home [phone] (home) [phone] (cell) Was an appointment scheduled: No Closing statement: Results or non-symptom based questions: Thank you for calling [facility], your call will be returned within the next business day. Lissa Rodriguez documented in this encounter [facility] 05-31-2023 Miscellaneous Notes Noted Jordan Levine MD Fax received from [facility] reporting, resident fell this AM, lost her balance bending over to pick something up. No injury noted but stated that she did hit the back of her head. Neurochecks initiated and WNL. . Sophie Bailey MA documented in this encounter [facility] 05-18-2023 Note HNO ID: [id number] Author: Sera Enamorado Service: ? Author Type: ? Type: Progress Notes Filed: 05/18/2023 4:09 PM Note Text: POPULATION HEALTH NAVIGATION OUTREACH Action/[facility] [place] Support: Called pt to schedule an appt in Pain Management. Patient has already scheduled. Patient Identified by Name and : YES, via phone Outreach Outcome/Action Spoke to patient / parent / legal guardian: Patient declined Did you use a PCP flex slot to schedule this appointment? No Reason for Outreach Care Gap or Scheduling/Wellness visits Payer: Payor: MEDICARE / Plan: MEDICARE A AND B / Product Type: Medicare / Care Gap Reviewed:: Specialty Scheduling Reminder: Reminder note to check Health Maintenance for items below Health Maintenance items due: SHINGRIX VACCINE(1 of 2) Never done PNEUMOCOCCAL: 65+(1 - PCV) Never done COVID-19 VACCINE(5 - Pfizer series) due on 11/29/2022 Navigation Signature: Sera Enamorado May 18, 2023 4:08 PM [facility] 05-18-2023 Note Patient Outreach (SCOT[facility] TNAV) -------- TERRIE SAMANO ([id number]) 1935 F Date Time Provider Department 05/18/23 NO PCP NETNAV During your visit today, we recorded the following information about you: Sera Enamorado 05/18/2023 4:09 PM Signed POPULATION HEALTH NAVIGATION OUTREACH Action/[facility]I [place] Support: Called pt to schedule an appt in Pain Management. Patient has already scheduled. Patient Identified by Name and : YES, via phone Outreach Outcome/Action Spoke to patient / parent / legal guardian: Patient declined Did you use a PCP flex slot to schedule this appointment? No Reason for Outreach Care Gap or Scheduling/Wellness visits Payer: Payor: MEDICARE / Plan: MEDICARE A AND B / Product Type: Medicare / Care Gap Reviewed:: Specialty Scheduling Reminder: Reminder note to check Health Maintenance for items below Health Maintenance items due: SHINGRIX VACCINE(1 of 2) Never done PNEUMOCOCCAL: 65+(1 - PCV) Never done COVID-19 VACCINE(5 - Pfizer series) due on 11/29/2022 Navigation Signature: Sera Enamorado May 18, 2023 4:08 PM Allergies As of Date: 05/18/2023 Noted Allergy Reaction COUGH SYRUP (GUAIFENESIN) 07/30/2009 2 - Rash IODINE 07/30/2009 2 - Rash Date Reviewed: 03/18/2023 Reviewed by: Citlalli Brown Ma - Fully Assessed Prescriptions as of 05/18/2023 - gabapentin (NEURONTIN) 300 mg capsule Take 1 capsule by mouth once daily for 180 days. - sertraline (ZOLOFT) 50 mg tablet Take 2 tablets by mouth once daily. - oxybutynin ER (DITROPAN XL) 10 mg 24 hr tablet Take 1 tablet by mouth once daily. - acetaminophen (TYLENOL) 325 mg tablet Take 2 tablets by mouth every 6 hours as needed for pain. - dilTIAZem CD (CARDIZEM CD) 120 mg 24 hr capsule Take 1 capsule by mouth once daily. - pravastatin (PRAVACHOL) 20 mg tablet Take 1 tablet by mouth once daily. - losartan (COZAAR) 100 mg tablet Take 1 tablet by mouth once daily. - meloxicam (MOBIC) 15 mg tablet Take 1 tablet by mouth once daily. - carboxymethylcellulose sodium (REFRESH OPHTHALMIC) Use 1 Drop in eyes as needed. - triamcinolone (KENALOG) 0.025 % cream Apply to affected area twice daily. - vit C/E/Zn/coppr/lutein/zeaxan (PRESERVISION AREDS 2 ORAL) Take 1 capsule by mouth twice daily. - calcium carbonate(CALTRATE 600 600 MG (1,500 MG) TAB) Take by mouth once daily. - aspirin(ECOTRIN LOW STRENGTH 81 MG TAB) Take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 Medical records from recent hospitalization: [facility]/Sign[employer] Lyn Flaherty Ma [facility] 01-07-2023 History of Present illness Narrative TRANSITION CARE MANAGEMENT (TCM) INITIAL CONTACT [employer] Outreach Provider Action/FYI: Call to pt for 14 day TCM. Pt at this time states she is overall doing okay, notes some tiredness. Denies any hypoxia or sob or new falls since being d/c home. James Delgado is adding more PT/OT and Balance activities to help with falls. Had assessment this morning. Report BP was elevated prior to ED visit and during. This morning she said it was back to a more normal reading. Initial contact with patient post discharge, spoke to patient. Patient identified by name and . TRANSITION CARE MANAGEMENT INITIAL OUTREACH DOCUMENTATION: No flowsheet data found. SUMMARY: -Pt discharged from [facility] on 01/05/23. -Admitted for: Discharge Diagnosis (1) Elevated blood pressure reading with diagnosis of hypertension: Status: Acute Code(s): I10 - Essential (primary) hypertension (2) Head injury: Status: Acute Code(s): S09.90XA - Unspecified injury of head, initial encounter (3) Hypoxia: Status: Acute Code(s): R09.02 - Hypoxemia (4) Fall: Status: Acute Code(s): W19.XXXA - Unspecified fall, initial encounter Qualifiers: Encounter type: initial encounter Qualified Code(s): W19.XXXA - Unspecified fall, initial encounter (5) Debility: Status: Acute Code(s): R53.81 - Other malaise Mrs. Samano is an 87-year-old white female who presented to the emergency department at [facility] on 01/04/2023 after suffering a fall at approximately 2 PM on the day of presentation. She hit her head at that time but had no loss of consciousness. She was sent to the emergency department from her assisted living facility by the nurses on the evening of admission as she was found to have a systolic pressure pressure in the 190s. She had no headache at the time of presentation and reported that previously she had been functioning well but had been having more falls as of late. She indicated to me that prior to moving to assisted living she was having significant amount of falls at home. Vital signs in ED upon presentation demonstrated a T98.5, heart 84, BP 185/95, respiratory rate 15, initially reported as 88% on room air improving to 94% on 1 L nasal cannula. Labs were overall unremarkable. Chest x-ray showed a mildly more prominent appearance of the descending thoracic aortic margin compared to 2017. Her rapid COVID was negative. CT of the brain showed no acute intracranial abnormality with mild chronic changes in the CT of the cervical spine showed no acute posttraumatic abnormality. Respiratory viral panel is negative. Patient was able to be quickly weaned off of supplemental oxygen on the a.m. of 01/04/2023. A CTA of her chest was performed and negative for any acute PE or acute findings. She does have evidence of previous granulomatous infection and mild bilateral atelectatic changes. She was evaluated by physical and Occupational Therapy and they recommended ongoing therapy but felt she would be safe to go back to her assisted living environment with outpatient therapy services. This was set up for her prior to discharge. After restarting her home patient of the MELANIA 100 was 8 and diltiazem 120 mg daily her blood pressures were ranging anywhere from 120-150 systolic and 65-90 diastolic. She was instructed to continue taking these at home. No new medications were added and she was discharged back to assisted living facility in stable conditions on 01/05/2023. We have instructed her to follow-up with her primary care physician to be seen within the next 2 weeks for hospital follow-up. Documents have been copied and pasted from [facility] for accuracy of patient care. Do you have a hospital follow up appointment with your PCP? Appointment on 01/19/[address] Levine at 2:20 pm. Yes. Remind patient of appointment date, time, and location. If not within 14 calendar days of discharge - please reschedule accordingly. MEDICATIONS: Many patients have questions or concerns about their medications once they are home. Were you prescribed any new medications? No Were you told to hold any medications? No Were any of your medications discontinued? No Do you have any questions about getting or taking your medications? No Your discharge instructions/After visit Summary (AVS) are important in guiding you through the recovery process. Is there anything I might help you understand? No Do you have all the necessary equipment and supplies at home? Yes Medical records from recent hospitalization: [facility] Lyn Flaherty Ma documented in this encounter [facility] 01-07-2023 Note Patient Outreach (FA MPWS) -------- TERRIE SAMANO ([id number]) 1935 F Date Time Provider Department 01/07/23 JORDAN LEVINE During your visit today, we recorded the following information about you: Lyn Flaherty Ma 01/07/2023 4:58 PM Signed TRANSITION CARE MANAGEMENT (TCM) INITIAL CONTACT [employer] Provider Action/FYI: Call to pt for 14 day TCM. Pt at this time states she is overall doing okay, notes some tiredness. Denies any hypoxia or sob or new falls since being d/c home. James Delgado is adding more PT/OT and Balance activities to help with falls. Had assessment this morning. Report BP was elevated prior to ED visit and during. This morning she said it was back to a more normal reading. Initial contact with patient post discharge, spoke to patient. Patient identified by name and . TRANSITION CARE MANAGEMENT INITIAL OUTREACH DOCUMENTATION: No flowsheet data found. SUMMARY: -Pt discharged from [facility] on 01/05/23. -Admitted for: Discharge Diagnosis (1) Elevated blood pressure reading with diagnosis of hypertension: Status: Acute Code(s): I10 - Essential (primary) hypertension (2) Head injury: Status: Acute Code(s): S09.90XA - Unspecified injury of head, initial encounter (3) Hypoxia: Status: Acute Code(s): R09.02 - Hypoxemia (4) Fall: Status: Acute Code(s): W19.XXXA - Unspecified fall, initial encounter Qualifiers: Encounter type: initial encounter Qualified Code(s): W19.XXXA - Unspecified fall, initial encounter (5) Debility: Status: Acute Code(s): R53.81 - Other malaise Mrs. Samano is an 87-year-old white female who presented to the emergency department at [facility] on 01/04/2023 after suffering a fall at approximately 2 PM on the day of presentation. She hit her head at that time but had no loss of consciousness. She was sent to the emergency department from her assisted living facility by the nurses on the evening of admission as she was found to have a systolic pressure pressure in the 190s. She had no headache at the time of presentation and reported that previously she had been functioning well but had been having more falls as of late. She indicated to me that prior to moving to assisted living she was having significant amount of falls at home. Vital signs in ED upon presentation demonstrated a T98.5, heart 84, BP 185/95, respiratory rate 15, initially reported as 88% on room air improving to 94% on 1 L nasal cannula. Labs were overall unremarkable. Chest x-ray showed a mildly more prominent appearance of the descending thoracic aortic margin compared to 2017. Her rapid COVID was negative. CT of the brain showed no acute intracranial abnormality with mild chronic changes in the CT of the cervical spine showed no acute posttraumatic abnormality. Respiratory viral panel is negative. Patient was able to be quickly weaned off of supplemental oxygen on the a.m. of 01/04/2023. A CTA of her chest was performed and negative for any acute PE or acute findings. She does have evidence of previous granulomatous infection and mild bilateral atelectatic changes. She was evaluated by physical and Occupational Therapy and they recommended ongoing therapy but felt she would be safe to go back to her assisted living environment with outpatient therapy services. This was set up for her prior to discharge. After restarting her home patient of the MELANIA 100 was 8 and diltiazem 120 mg daily her blood pressures were ranging anywhere from 120-150 systolic and 65-90 diastolic. She was instructed to continue taking these at home. No new medications were added and she was discharged back to assisted living facility in stable conditions on 01/05/2023. We have instructed her to follow-up with her primary care physician to be seen within the next 2 weeks for hospital follow-up. Documents have been copied and pasted from [facility]/[employer] for accuracy of patient care. Do you have a hospital follow up appointment with your PCP? Appointment on 01/19/[address] Levine at 2:20 pm. Yes. Remind patient of appointment date, time, and location. If not within 14 calendar days of discharge - please reschedule accordingly. MEDICATIONS: Many patients have questions or concerns about their medications once they are home. Were you prescribed any new medications? No Were you told to hold any medications? No Were any of your medications discontinued? No Do you have any questions about getting or taking your medications? No Your discharge instructions/After visit Summary (AVS) are important in guiding you through the recovery process. Is there anything I might help you understand? No Do you have all the necessary equipment and supplies at home? Yes Medical records from recent hospitalization: [facility] Lyn Taylor (more content not included)... [facility] 09-18-2022 History of Present illness Narrative Chief Complaint Patient presents with: F/U 6 Month HPI Terrie Samano is a 87 year old female who presents here today for a 6 monty follow up. Pt lives at [facility], has lived there for 9 years. Moved due to frequent falling. GI/Uro - Denies any stomach or bowel issues. Gets up at night urinate. Prescribed Ditropan 10 mg once daily by Dr. Mullen. Will have occasional rash in her groin that she will use Nystatin for. HTN - Denies checking her BP at home. No symptoms of chest pain or dizziness. Notes some sob, noted by her Therapist. Wondering if this related to her left ventricle/cardiac issues. Did have issues in the past with getting Pulse ox above 93%. On current regimen of Losartan 100 mg once daily and Cardizem 120 mg daily. Edema - Wears compression stocking daily. Doing well. Does have hx of cellulitis. Lipids - Does try to watch diet, but meals are limited due to being in Assisted Living. Denies much exercise. Currently taking Pravastatin 20 mg once daily, doing well on medication. Pain - Chronic low back pain with radiculopathy, right hip pain and arthritis pain. On her current regimen of Gabapentin 300 mg once daily and Mobic 15 mg daily. Pt reports increased right sided back pain over the past two days. She was hitting one of the door buttons on the wall to open the door and came up and screamed in her ear. Pt hue and back up against the wall, hitting it. This has caused increased pain. AGUILAR/Depression - Stable with use of Zoloft 50 mg once daily. No SI/HI. Falls - Has reported in the past multiple falls. Uses a walker to ambulate. Has been seen by PT/OT and Balance Therapy at [facility] in the past. Feels this did help. HM - Received flu shot on 09/10/22. Has Depression diagnoses. Falls Risk Intake: Patient age 65 or over, unsteady, or was advised to use special equipment to aid ambulation (i.e., cane or walker)? Yes Has the patient had two falls in the past year, or one with injury? Yes Does the patient need to use their hands when pushing up from chair, or hold onto furniture when ambulating at home? Yes Is the patient worried about falling? Yes Please inform patient that answering Yes to one or more of the questions above can increase their risk of falling Patient is at greater risk for falls. Falls Instruction: Teaching document below - reviewed and given to patient Past medical history, appointments, medications, allergies reviewed. Previous Medical History PAST MEDICAL HISTORY Diagnosis Date Chronic back pain Followed by Dr. Whitehead Macular degeneration Mixed hyperlipidemia Hyperlipidemia PMH - PAST MEDICAL HISTORY OF 2001 left eye detached retina Unspecified essential hypertension Essential hypertension Previous Surgical History PAST SURGICAL HISTORY Procedure Laterality Date APPENDECTOMY 12/1962 PAST SURGICAL HISTORY OF cataract sx left eye TONSILLECTOMY & ADENOIDECTOMY <AGE 14 T/A (under age 14 years) TOTAL ABDOMINAL HYSTERECT W/WO RMVL TUBE OVARY 04/07/1978 Hysterectomy, CAROLE Family History FAMILY HISTORY Problem Relation Age of Onset Hypertension Mother Colon Cancer Mother Hypertension Father Prostate Cancer Father Colon Cancer Sister Diabetes Brother Patient Allergies ALLERGIES Allergen Reactions Cough Syrup [Guaife* Rash Iodine Rash Current Medications Current Outpatient Medications on File Prior to Visit Medication Sig sertraline (ZOLOFT) 50 mg tablet Take 1 tablet by mouth once daily. dilTIAZem CD (CARDIZEM CD) 120 mg 24 hr capsule Take 1 capsule by mouth once daily. pravastatin (PRAVACHOL) 20 mg tablet Take 1 tablet by mouth once daily. nystatin (MYCOSTATIN) cream Apply to affected area twice daily. losartan (COZAAR) 100 mg tablet Take 1 tablet by mouth once daily. gabapentin (NEURONTIN) 300 mg capsule Take 1 capsule by mouth once daily for 180 days. meloxicam (MOBIC) 15 mg tablet Take 1 tablet by mouth once daily. nystatin (MYCOSTATIN) cream Apply to affected area twice daily. carboxymethylcellulose sodium (REFRESH OPHTHALMIC) Use 1 Drop in eyes as needed. lidocaine QEc-ql-tovgmwq-menth 4-30-10 % ktcg Apply to affected area. As needed triamcinolone (KENALOG) 0.025 % cream Apply to affected area twice daily. vit C/E/Zn/coppr/lutein/zeaxan (PRESERVISION AREDS 2 ORAL) Take 1 capsule by mouth twice daily. calcium carbonate(CALTRATE 600 600 MG (1,500 MG) TAB) Take by mouth once daily. aspirin(ECOTRIN LOW STRENGTH 81 MG TAB) Take one(1) tablet daily. No current facility-administered medications on file prior to visit. Social History Social History Tobacco Use Smoking status: Never Smokeless tobacco: Never Vaping Use Vaping Use: Never used Substance Use Topics Alcohol use: No Drug use: No EXAM: BP 124/72 (BP Site: Right Arm, BP Position: Sitting, BP Cuff Size: Regular Adult) Pulse 82 Resp 16 Wt 82.6 kg (182 lb 3.2 oz) BMI 34.43 kg/m General Appearance: Well appearing, alert, in no acute distress, well-hydrated, well nourished.. Lungs: Lungs clear to auscultation. No wheezing, rhonchi, rales.. Heart: RRR without murmur, gallop, or rubs. No ectopy. Health Maintenance List SHINGRIX VACCINE(1 of 2) Never done PNEUMOCOCCAL: 65+(1 - PCV) Never done COVID-19 VACCINE(4 - Booster for Pfizer series) due on 09/29/2021 DEPRESSION ASSESSMENT Never done INFLUENZA(1) due on 06/25/2022 DIABETES SCREEN due on 03/09/2025 DTAP,TDAP,TD(3 - Td or Tdap) due on 08/31/2030 BONE DENSITY Completed ADVANCE DIRECTIVE DISCUSSION Completed Data reviewed Appointment on 09/15/2022 Component Date Value Cholesterol, Total 09/15/2022 173 Triglyceride 09/15/2022 73 HDL Cholesterol 09/15/2022 59 Non HDL Cholesterol 09/15/2022 114 Fasting Time 09/15/2022 14 VLDL Cholesterol 09/15/2022 15 TC:HDL Ratio 09/15/2022 2.93 LDL Cholesterol 09/15/2022 99 LDL:HDL Ratio 09/15/2022 1.68 Protein, Total 09/15/2022 7.6 Albumin 09/15/2022 4.1 Calcium, Total 09/15/2022 10.8 (A) Bilirubin, Total 09/15/2022 0.4 Alkaline Phosphatase 09/15/2022 100 AST 09/15/2022 24 ALT 09/15/2022 16 Glucose 09/15/2022 99 BUN 09/15/2022 25 (A) Creatinine 09/15/2022 0.69 Sodium 09/15/2022 141 Potassium 09/15/2022 4.3 Chloride 09/15/2022 105 CO2 09/15/2022 25 Anion Gap 09/15/2022 11 Estimated Glomerular Hamzah* 09/15/2022 85 WBC 09/15/2022 8.25 RBC 09/15/2022 4.39 Hemoglobin 09/15/2022 11.7 Hematocrit 09/15/2022 40.3 MCV 09/15/2022 91.8 MCH 09/15/2022 26.7 MCHC 09/15/2022 29.0 (A) RDW-CV 09/15/2022 15.9 (A) Platelet Count 09/15/2022 299 MPV 09/15/2022 10.8 Neut% 09/15/2022 64.0 Abs Neut 09/15/2022 5.28 Lymph% 09/15/2022 20.6 Abs Lymph 09/15/2022 1.70 [place]% 09/15/2022 10.3 Abs [place] 09/15/2022 0.85 Eosin% 09/15/2022 3.5 Abs Eosin 09/15/2022 0.29 Baso% 09/15/2022 1.0 Abs Baso 09/15/2022 0.08 Immature Gran % 09/15/2022 0.6 Abs Immature Gran 09/15/2022 0.05 NRBC 09/15/2022 0.0 Absolute nRBC 09/15/2022 <0.01 Red Cell Morph 09/15/2022 Reviewed: see results of individual morphologies Cold Agglutinin 09/15/2022 Present Diff Type 09/15/2022 Auto ASSESSMENT/PLAN: 1. Essential hypertension - ICD9: 401.9, ICD10: I10 (primary diagnosis) - good control - Continue current medication(s) - Recommended regular aerobic exercise. - Recommend home blood pressure monitoring, to bring results in on next visit - Goal of BP <140/90 - COMP METABOLIC PANEL - LIPID PANEL BASIC - CBC 2. Mixed hyperlipidemia - ICD9: 272.2, ICD10: E78.2 - good control - Continue current medication. - COMP METABOLIC PANEL - LIPID PANEL BASIC 3. Elevated glucose - ICD9: 790.29, ICD10: R73.09 Monitor 4. Lumbar radiculopathy - ICD9: 724.4, ICD10: M54.16 Chronic low back pain Continue current medications. Stretching, etc 5. Right hip pain - ICD9: 719.45, ICD10: M25.551 6. Yeast dermatitis - ICD9: 112.3, ICD10: B37.2 Continue current medications. Follow up in 6 months with labs prior Medical Decision Making: Problems: Moderate: 2+ stable chronic illnesses Data: Unique test result(s) reviewed: 3+ Unique test(s) ordered: 3+ Risk: Moderate: Drug management Medical Decision Making Level: 4 - Moderate Jordan Levine MD documented in this encounter [facility] 08-26-2022 Miscellaneous Notes Forms completed by PCP and faxed back to number below. Lyn Flaherty Ma Type of form: Yearly H&P, [facility] Form received via fax When form is completed, Fax form to [phone] Form has been forwarded to Physician Desk: Dr. Dipesh Flaherty Ma documented in this encounter [facility] 06-03-2022 Instructions Jordan Levine MD - 06/03/2022 3:32 PM EDT Do not take Meloxicam (Mobic) while using 9 day Prednisone taper. documented in this encounter [facility] 06-03-2022 History of Present illness Narrative Chief Complaint Patient presents with: Pain HPI Terrie Ortizetler is a 87 year old female who presents here today for an acute visit. Pt scheduled today for a same day visit due to back and hip pain. Pt c/o of right sided low back pain and hip pain x 2 weeks. Patient states that pain has been seeming to get worse. Denies pain going down her entire right leg, but mostly to the hip, which concerns her. Previous R hip surgery due to fall 4 years ago that required surgery of philly placement. She denies falling in the past 2 weeks but has fallen in the past. About 2 weeks ago someone came up behind her and yelled which scared her, causing her to flinch. Unsure if this is really the cause. Pain today a 6/10 and described as sore, aching, sharp and radiating. Pain does cause her to limp which she does not like. Uses a walker to ambulate. Pain not as bad with sitting. Using Gabapentin, Mobic and Tylenol presently in addition to heat. Hx of left sided back pain that she received injections by Dr. Leger. Has not been since 2018 when she broke her hip. Past medical history, appointments, medications, allergies reviewed. Previous Medical History PAST MEDICAL HISTORY Diagnosis Date Chronic back pain Followed by Dr. Whitehead Macular degeneration Mixed hyperlipidemia Hyperlipidemia PMH - PAST MEDICAL HISTORY OF 2001 left eye detached retina Unspecified essential hypertension Essential hypertension Previous Surgical History PAST SURGICAL HISTORY Procedure Laterality Date APPENDECTOMY 12/1962 PAST SURGICAL HISTORY OF cataract sx left eye TONSILLECTOMY & ADENOIDECTOMY <AGE 14 T/A (under age 14 years) TOTAL ABDOMINAL HYSTERECT W/WO RMVL TUBE OVARY 04/07/1978 Hysterectomy, CAROLE Family History FAMILY HISTORY Problem Relation Age of Onset Hypertension Mother Colon Cancer Mother Hypertension Father Prostate Cancer Father Colon Cancer Sister Diabetes Brother Patient Allergies ALLERGIES Allergen Reactions Cough Syrup [Guaife* Rash Iodine Rash Current Medications Current Outpatient Medications on File Prior to Visit Medication Sig gabapentin (NEURONTIN) 300 mg capsule Take 1 capsule by mouth once daily for 180 days. dilTIAZem CD (CARDIZEM CD) 120 mg 24 hr capsule Take 1 capsule by mouth once daily. losartan (COZAAR) 100 mg tablet Take 1 tablet by mouth once daily. meloxicam (MOBIC) 15 mg tablet Take 1 tablet by mouth once daily. sertraline (ZOLOFT) 50 mg tablet Take 1 tablet by mouth once daily. pravastatin (PRAVACHOL) 20 mg tablet Take 1 tablet by mouth once daily. nystatin (MYCOSTATIN) cream Apply to affected area twice daily. carboxymethylcellulose sodium (REFRESH OPHTHALMIC) Use 1 Drop in eyes as needed. lidocaine IHg-yj-ybrirmr-menth 4-30-10 % ktcg Apply to affected area. As needed triamcinolone (KENALOG) 0.025 % cream Apply to affected area twice daily. vit C/E/Zn/coppr/lutein/zeaxan (PRESERVISION AREDS 2 ORAL) Take 1 capsule by mouth twice daily. calcium carbonate(CALTRATE 600 600 MG (1,500 MG) TAB) Take by mouth once daily. aspirin(ECOTRIN LOW STRENGTH 81 MG TAB) Take one(1) tablet daily. No current facility-administered medications on file prior to visit. Social History Social History Tobacco Use Smoking status: Never Smokeless tobacco: Never Vaping Use Vaping Use: Never used Substance Use Topics Alcohol use: No Drug use: No EXAM: BP 136/84 (BP Site: Left Arm, BP Position: Sitting, BP Cuff Size: Regular Adult) Pulse 72 Resp 20 Wt 81.5 kg (179 lb 9.6 oz) BMI 33.94 kg/m General Appearance: Well appearing, alert, in no acute distress, well-hydrated, well nourished and Obese. Back: Pain with palpating lower middle back to the right.. Health Maintenance List SHINGRIX VACCINE(1 of 2) Never done PNEUMOCOCCAL: 65+(1 - PCV) Never done COVID-19 VACCINE(4 - Booster for Pfizer series) due on 12/05/2021 INFLUENZA(1) due on 06/25/2022 DIABETES SCREEN due on 03/09/2025 DTAP,TDAP,TD(3 - Td or Tdap) due on 08/31/2030 BONE DENSITY Completed ADVANCE DIRECTIVE DISCUSSION Completed Data reviewed Epic ASSESSMENT/PLAN: 1. Lumbar radiculopathy - ICD9: 724.4, ICD10: M54.16 (primary diagnosis) - Start 9 day Prednisone taper - use heat/ice. - Stop Mobic while taking Prednisone - PREDNISONE 10 MG TABLET 2. Right hip pain - ICD9: 719.45, ICD10: M25.551 - Ast noted above - PREDNISONE 10 MG TABLET 3. Yeast dermatitis - ICD9: 112.3, ICD10: B37.2 - New Rx sent in. - NYSTATIN 100,000 UNIT/GRAM TOPICAL CREAM Update office if not improved. I agree with the Chief Complaint, ROS, and Past Histories independently gathered by the clinical ict support engineer and the remaining scribed note accurately describes my personal service to the patient. Medical Decision Making: Problems: Low: Acute, uncomplicated illness or injury Risk: Moderate: Drug management Medical Decision Making Level: 3 - Low Jordan Levine MD The documentation for this note was completed by Lyn Flaherty Ma acting as scribe for Jordan Levine MD. June 03, 2022 3:30 PM. Lyn Flaherty Ma documented in this encounter [facility] 03-16-2022 Nurse Note Falls Risk Intake: 1. Patient age 65 or over, unsteady, or was advised to use special equipment to aid ambulation (i.e., cane or walker)? Yes 2. Has the patient had two falls in the past year, or one with injury? Yes 3. Does the patient need to use their hands when pushing up from chair, or hold onto furniture when ambulating at home? Yes 4. Is the patient worried about falling? Yes Please inform patient that answering Yes to one or more of the questions above can increase their risk of falling Patient is at greater risk for falls. Falls Instruction: Teaching document below - reviewed and given to patient [facility] - Preventing Falls and Maintaining Balance documented in this encounter [facility] 03-16-2022 History of Present illness Narrative Chief Complaint Patient presents with: 6 Month Exam HPI Terrie Samano is a 87 year old female who presents here today for a 6 month follow up. Pt living in [facility]. She has a living will, health Care POA. Denies any stomach or bowel issues. Has previously seen Dr. Mullen in the past and given Ditropan 10 mg once daily. Does have prn flare ups of a rash located in her groin that she uses Nystatin for. She does get up a lot at night to urinate which she thinks does contribute to her fatigue. She gets up early around 6 or 6:30 AM. HTN: Denies checking BP at home or having symptoms of chest pain, sob or dizziness. On current regimen of Losartan 100 mg once daily and Cardizem 120 mg once daily. She states she has wall thickening to the left ventricle and it is smaller. She had Echo done in 2019. Lipids: Does try to watch her diet, but states that it's limited due to meals she receives at assisted living. Denies much exercise. On current regimen of Pravastatin 20 mg once daily, tolerating well. She drinks milk with her meals and tries to eat cottage cheese with meals as well. She tries to get calcium and Vitamin D in her diet. Also takes calcium supplement with vit d. She has gained some weight but it is difficult due to being in the assisted living and having meals prepared for her. She states she could walk a little more for exercise. Dizziness: has improved, she saw Mirella Johnson for this. Has been having issues getting her pulse ox above 93%. Pain: Chronic lumbar radiculopathy pain that is overall controlled with use of Gabapentin 300 mg once daily and Mobic 15 mg daily. AGUILAR/Depression: Doing well on her current regimen of Zoloft 50 mg once daily. Edema: Hx of Cellulitis and was seen in on 10/07/21 due to cellulitis. Wears compression stockings and overall doing well now. Falls: Multiple falls over the past year. Using a walker to ambulate. Has done PT/OT and balance therapy at Assisted Living, believes this has helped. Past medical history, appointments, medications, allergies reviewed. Previous Medical History PAST MEDICAL HISTORY Diagnosis Date Chronic back pain Followed by Dr. Whitehead Macular degeneration Mixed hyperlipidemia Hyperlipidemia PMH - PAST MEDICAL HISTORY OF 2001 left eye detached retina Unspecified essential hypertension Essential hypertension Previous Surgical History PAST SURGICAL HISTORY Procedure Laterality Date APPENDECTOMY 12/1962 PAST SURGICAL HISTORY OF cataract sx left eye TONSILLECTOMY & ADENOIDECTOMY <AGE 14 T/A (under age 14 years) TOTAL ABDOMINAL HYSTERECT W/WO [facility]VL TUBE OVARY 04/07/1978 Hysterectomy, CAROLE Family History FAMILY HISTORY Problem Relation Age of Onset Hypertension Mother Colon Cancer Mother Hypertension Father Prostate Cancer Father Colon Cancer Sister Diabetes Brother Patient Allergies ALLERGIES Allergen Reactions Cough Syrup [Guaife* Rash Iodine Rash Current Medications Current Outpatient Medications on File Prior to Visit Medication Sig dilTIAZem CD (CARDIZEM CD) 120 mg 24 hr capsule Take 1 capsule by mouth once daily. losartan (COZAAR) 100 mg tablet Take 1 tablet by mouth once daily. meloxicam (MOBIC) 15 mg tablet Take 1 tablet by mouth once daily. gabapentin (NEURONTIN) 300 mg capsule Take 1 capsule by mouth once daily for 180 days. sertraline (ZOLOFT) 50 mg tablet Take 1 tablet by mouth once daily. pravastatin (PRAVACHOL) 20 mg tablet Take 1 tablet by mouth once daily. nystatin (MYCOSTATIN) cream Apply to affected area twice daily. carboxymethylcellulose sodium (REFRESH OPHTHALMIC) Use 1 Drop in eyes as needed. lidocaine FMn-tq-lhvprkv-menth 4-30-10 % ktcg Apply to affected area. As needed triamcinolone (KENALOG) 0.025 % cream Apply to affected area twice daily. vit C/E/Zn/coppr/lutein/zeaxan (PRESERVISION AREDS 2 ORAL) Take 1 capsule by mouth twice daily. calcium carbonate(CALTRATE 600 600 MG (1,500 MG) TAB) Take by mouth once daily. aspirin(ECOTRIN LOW STRENGTH 81 MG TAB) Take one(1) tablet daily. No current facility-administered medications on file prior to visit. Social History Social History Tobacco Use Smoking status: Never Smoker Smokeless tobacco: Never Used Vaping Use Vaping Use: Never used Substance Use Topics Alcohol use: No Drug use: No EXAM: BP 128/78 Pulse 82 Resp 16 Wt 83.1 kg (183 lb 3.2 oz) SpO2 93% BMI 34.62 kg/m General Appearance: Well appearing, alert, in no acute distress, well-hydrated, well nourished., Overweight and Walker. Lungs: Lungs clear to auscultation. No wheezing, rhonchi, rales.. Heart: RRR without murmur, gallop, or rubs. No ectopy. Extremities: alexa legs, normal, no swelling. Health Maintenance List SHINGRIX VACCINE(1 of 2) Never done PNEUMOVAX AGE 65 AND OVER WITH 5YR LOOKBACK(1) Never done ADVANCE DIRECTIVE DISCUSSION Never done COVID-19 VACCINE(4 - Booster for Pfizer series) due on 12/05/2021 DIABETES SCREEN due on 03/09/2025 DTAP,TDAP,TD(3 - Td or Tdap) due on 08/31/2030 BONE DENSITY Completed INFLUENZA Completed MENINGOCOCCAL CONJUGATE Aged Out Data reviewed Appointment on 03/09/2022 Component Date Value Protein, Total 03/09/2022 7.5 Albumin 03/09/2022 4.2 Calcium, Total 03/09/2022 10.5 (A) Bilirubin, Total 03/09/2022 0.4 Alkaline Phosphatase 03/09/2022 84 AST 03/09/2022 35 ALT 03/09/2022 25 Glucose 03/09/2022 94 BUN 03/09/2022 21 Creatinine 03/09/2022 0.64 Sodium 03/09/2022 143 Potassium 03/09/2022 4.3 Chloride 03/09/2022 107 (A) CO2 03/09/2022 26 Anion Gap 03/09/2022 10 Estimated Glomerular Hamzah* 03/09/2022 87 Cholesterol, Total 03/09/2022 159 Triglyceride 03/09/2022 79 HDL Cholesterol 03/09/2022 57 Non HDL Cholesterol 03/09/2022 102 Fasting Time 03/09/2022 13 VLDL Cholesterol 03/09/2022 16 TC:HDL Ratio 03/09/2022 2.79 LDL Cholesterol 03/09/2022 86 LDL:HDL Ratio 03/09/2022 1.51 WBC 03/09/2022 7.98 RBC 03/09/2022 4.32 Hemoglobin 03/09/2022 13.1 Hematocrit 03/09/2022 42.6 MCV 03/09/2022 98.6 MCH 03/09/2022 30.3 MCHC 03/09/2022 30.8 RDW-CV 03/09/2022 13.5 Platelet Count 03/09/2022 253 MPV 03/09/2022 10.1 Neut% 03/09/2022 64.2 Abs Neut 03/09/2022 5.12 Lymph% 03/09/2022 21.8 Abs Lymph 03/09/2022 1.74 [place]% 03/09/2022 8.6 Abs [place] 03/09/2022 0.69 Eosin% 03/09/2022 3.5 Abs Eosin 03/09/2022 0.28 Baso% 03/09/2022 1.1 Abs Baso 03/09/2022 0.09 Immature Gran % 03/09/2022 0.8 Abs Immature Gran 03/09/2022 0.06 NRBC 03/09/2022 0.0 Absolute nRBC 03/09/2022 <0.01 Platelet Estimate 03/09/2022 Adequate Red Cell Morph 03/09/2022 Reviewed: see results of individual morphologies Cold Agglutinin 03/09/2022 Present Diff Type 03/09/2022 Auto ASSESSMENT/PLAN: 1. Mixed hyperlipidemia - ICD9: 272.2, ICD10: E78.2 (primary diagnosis) - good control - Continue current medication. - Encouraged following a low fat, low cholesterol diet. - Discussed the benefits of regular aerobic exercise and weight loss. 2. Lumbar radiculopathy - ICD9: 724.4, ICD10: M54.16 Chronic low back pain Continue current medications. - GABAPENTIN 300 MG CAPSULE 3. Essential hypertension - ICD9: 401.9, ICD10: I10 - good control - Continue current medication(s) - Recommended regular aerobic exercise. - Recommend home blood pressure monitoring, to bring results in on next visit - Goal of BP <140/90 4. Primary hyperparathyroidism (HCC) - ICD9: 252.01, ICD10: E21.0 Continue current medications. 5. Osteoarthritis, unspecified osteoarthritis type, unspecified site - ICD9: 715.90, ICD10: M19.90 Continue current medications. 6. Bilateral carotid artery stenosis - ICD9: 433.10, 433.30, ICD10: I65.23 Continue current medications. 7. Gait abnormality - ICD9: 781.2, ICD10: R26.9 Continue using walker to ambulate 8. Chronic back pain, unspecified back location, unspecified back pain laterality - ICD9: 724.5, 338.29, ICD10: M54.9, G89.29 Chronic low back pain Continue current medications. Follow up in 6 months with fasting labs prior. I agree with the Chief Complaint, ROS, and Past Histories independently gathered by the clinical ict support engineer and the remaining scribed note accurately describes my personal service to the patient. Medical Decision Making: Problems: Moderate: 2+ stable chronic illnesses Data: Unique test result(s) reviewed: 3+ Unique test(s) ordered: 3+ Risk: Moderate: Drug management Medical Decision Making Level: 4 - Moderate Jordan Levine MD The documentation for this note was completed by Citlalli Brown Ma acting as scribe for Jordan Levine MD. March 16, 2022 3:33 PM. Citlalli Brown Ma documented in this encounter [facility] Lumbar radiculopathy- Primary Thoracic or lumbosacral neuritis or radiculitis, unspecified Right hip pain Pain in joint, pelvic region and thigh Yeast dermatitis Candidiasis of skin and nails Essential hypertension Unspecified essential hypertension Chronic back pain, unspecified back location, unspecified back pain laterality [facility] Diagnosis Essential hypertension- Primary Unspecified essential hypertension Mixed hyperlipidemia Elevated glucose Other abnormal glucose Lumbar radiculopathy Thoracic or lumbosacral neuritis or radiculitis, unspecified Right hip pain Pain in joint, pelvic region and thigh Yeast dermatitis Candidiasis of skin and nails [facility] Diagnosis Hospital discharge follow-up- Primary Other follow-up examination At high risk for falls Personal history of fall Essential hypertension Unspecified essential hypertension [facility] Diagnosis Chronic left shoulder pain- Primary Pain in joint, shoulder region [facility] Diagnosis Yeast dermatitis Candidiasis of skin and nails documented in this encounter [facility] Summary Purpose Family History No Family History Records FoundNo Family History Records Found Advance Directives No Advanced Directives Records FoundDocuments on File Type Date Recorded Patient Electronic Equipment Repairmen Expl anation Advance Directive(s) 06/21/2019 3:08 PM Documents on File Type Date Recorded Patient Electronic Equipment Repairmen Expl anation Advance Directive(s) 06/21/2019 3:08 PM Reason for Referral Specialty Diagnoses / Procedures Referred By Daniela borrero Referred To Contact Pain Management Diagnoses Chronic left shoulder pain Procedures CONSULT TO PAIN MGT OFFICE/OUTPATIENT NEW HIGH MDM 60-74 MINUTES Jordan Levine MD [address] [place] [address] Referral ID Status Reason Start Date Expiration Date Visits Requested Visits Authorized [id number] Authorized PCP Requested Referral 05/11/2023 05/10/2024 1 1 Additional Source Comments INFORMATION SOURCE (unrecogn ized section and content) DATE CREATED AUTHOR AUTHOR'S BRINDA ATION 10/16/2023 [facility] Source Comments (unrecognize d section and content) In the event this informatio n is protected by the Federal Confidentiality of Alcohol and Drug Abuse Patient Records regulations: The Federal rules restrict any use of the information to criminally investigate or prosecute any alcohol or drug abuse patient.[facility] the event this information is protected by the Federal Confidentiality of Alcohol and Drug Abuse Patient Records regulations: The Federal rules restrict any use of the information to criminally investigate or prosecute any alcohol or drug abuse patient.[facility] the event this information is protected by the Federal Confidentiality of Alcohol and Drug Abuse Patient Records regulations: The Federal rules restrict any use of the information to criminally investigate or prosecute any alcohol or drug abuse patient.[facility] the event this information is protected by the Federal Confidentiality of Alcohol and Drug Abuse Patient Records regulations: The Federal rules restrict any use of the information to criminally investigate or prosecute any alcohol or drug abuse patient.[facility] the event this information is protected by the Federal Confidentiality of Alcohol and Drug Abuse Patient Records regulations: The Federal rules restrict any use of the information to criminally investigate or prosecute any alcohol or drug abuse patient.[facility] the event this information is protected by the Federal Confidentiality of Alcohol and Drug Abuse Patient Records regulations: The Federal rules restrict any use of the information to criminally investigate or prosecute any alcohol or drug abuse patient.[facility] the event this information is protected by the Federal Confidentiality of Alcohol and Drug Abuse Patient Records regulations: The Federal rules restrict any use of the information to criminally investigate or prosecute any alcohol or drug abuse patient.[facility] the event this information is protected by the Federal Confidentiality of Alcohol and Drug Abuse Patient Records regulations: The Federal rules restrict any use of the information to criminally investigate or prosecute any alcohol or drug abuse patient.[facility] the event this information is protected by the Federal Confidentiality of Alcohol and Drug Abuse Patient Records regulations: The Federal rules restrict any use of the information to criminally investigate or prosecute any alcohol or drug abuse patient.[facility] the event this information is protected by the Federal Confidentiality of Alcohol and Drug Abuse Patient Records regulations: The Federal rules restrict any use of the information to criminally investigate or prosecute any alcohol or drug abuse patient.[facility] the event this information is protected by the Federal Confidentiality of Alcohol and Drug Abuse Patient Records regulations: The Federal rules restrict any use of the information to criminally investigate or prosecute any alcohol or drug abuse patient.[facility] the event this information is protected by the Federal Confidentiality of Alcohol and Drug Abuse Patient Records regulations: The Federal rules restrict any use of the information to criminally investigate or prosecute any alcohol or drug abuse patient.[facility] Reason for Visit (unrecogniz ed section and content) Reason Comments Pain Reason Comments Forms Reason Comments F/U 6 Month Reason Onset Date Comments Transition Of Care 01/07/2023 [facility] hosp f/u Reason Comments Hospital F/U Reason Comments Electronic Communication [facility] Living Reason Comments Electronic Communication Reason Comments Fall Reason Comments not on current list Nystatin cream Reason Comments Patient Question Care Teams (unrecognized sec tion and content) Laundry Folder Relationship Specialty Start Date End Date Jordan Levine MD [address] [place] [address] PCP - General Family Practice 05/31/19 Laundry Folder Relationship Specialty Start Date End Date Jordan Levine MD [address] [place] [address] PCP - General Family Medicine 05/31/19 Laundry Folder Relationship Specialty Start Date End Date Jordan Levine MD [address] [place] [address] PCP - General Family Medicine 05/31/19 Laundry Folder Relationship Specialty Start Date End Date Jordan Levine MD [address] [place] [address] PCP - General Family Medicine 05/31/19 Laundry Folder Relationship Specialty Start Date End Date Jordan Levine MD [address] [place] [address] PCP - General Family Medicine 05/31/19 Laundry Folder Relationship Specialty Start Date End Date Jordan Levine MD [address] [place] [address] PCP - General Family Medicine 05/31/19 Laundry Folder Relationship Specialty Start Date End Date Jordan Levine MD [address] [place] [address] PCP - General Family Medicine 05/31/19 Laundry Folder Relationship Specialty Start Date End Date Jordan Levine MD [address] [place] [address] PCP - General Family Medicine 05/31/19 Laundry Folder Relationship Specialty Start Date End Date Jordan Levine MD [address] [place] [address] PCP - General Family Medicine 05/31/19 Laundry Folder Relationship Specialty Start Date End Date Jordan Levine MD [address] [place] [address] PCP - General Family Medicine 05/31/19 FOR RECORDS PERTAINING TO PATIENTS WHO ARE OR HAVE BEEN ENROLLED IN A CHEMICAL DEPENDENCY/SUBSTANCEABUSE PROGRAM, SOME INFORMATION MAY BE OMITTED. This clinical summary was aggregated from multiple sources. Caution should be exercised in using it in the provision of clinical care. This summary normalizes information from multiple sources, and as a consequence, information in this document may materially change the coding, format and clinical context of patient data. In addition, data may be omitted in some cases. CLINICAL DECISIONS SHOULD BE BASED ON THE PRIMARY CLINICAL RECORDS. [email or web address] [facility]. provides no warranty or guarantee of the accuracy or completeness of information in this document.
== END | disposition home or self-care (01) ==
LOC: CVS 15:13
PROVIDERS: PCP Family Medicine; Referring Provider Nurse Practitioner Family; Visit Provider Nurse Practitioner Family
DX: M79.89 Other specified soft tissue disorders (principal); R60.0 Localized edema; L03.115 Cellulitis of right lower limb
CPT/HCPCS: 93971

== ENCOUNTER → 2024-03-14 | Outpatient (REF) | payer MEDICARE, OTHER, SELFPAY ==
[2024-03-14 08:26] LABS: Hematocrit 35.4 % (37-47); Hemoglobin 10.7 g/dL (12.0-15.0); Mean Corp Hgb Conc 30.2 g/dL (32-36); Mean Corpuscular Hgb 29.4 pg (27.0-32.0); Mean Corpuscular Volume 97.3 fL (81-99); Mean Platelet Vol. 10.3 fl (6.2-12.0); Platelet Count 261 K/mm3 (150-450); RBC Distribution Width CV 13.6 % (11.6-14.6); RBC Distribution Width SD 48.8 fl (35.1-43.9); Red Blood Count 3.64 M/mm3 (4.2-5.4); White Blood Count 7.1 K/mm3 (4.4-11.0)
[2024-03-14 08:47] LABS: ALB/GLOB Ratio 0.8 RATIO (0.9-2.4); AST(SGOT) 24 U/L (15-37); Alanine Aminotransfer ALT/SGPT 29 U/L (13-56); Albumin, Serum 3.3 g/dL (3.2-5.0); Alkaline Phosphatase 103 U/L (45-117); Anion Gap 5 (5-15); BUN 22 mg/dL (7-18); BUN/Creat Ratio 32.1 RATIO (10-20); Calcium,Total 10.3 mg/dL (8.5-10.1); Chloride 109 mmol/L (98-107); Cholesterol 156 mg/dL (200); Creatinine, Serum 0.69 mg/dL (0.55-1.02); EST Glomerular Filtration Rate 86 mL/min (>60); Est Glom Filt Rate - Afr Amer 104 mL/min (>60); Globulin 3.9 g/dL (2.2-4.2); Glucose 101 mg/dL (74-106); High Density Lipoprotein 66 mg/dL; Potassium 4.2 mmol/L (3.5-5.1); Protein, Total 7.2 g/dL (6.4-8.2); Sodium Level 141 mmol/L (136-145); Triglycerides 65 mg/dL; Very Low Density Lipoprotein 13 mg/dL (5-40)
== END ==
LOC: OLS.SWAL 05:00
PROVIDERS: PCP Family Medicine; Visit Provider Family Medicine
DX: I10 Essential (primary) hypertension (principal)
CPT/HCPCS: 36415; 80053; 80061; 85027

== ENCOUNTER 2024-08-15 14:34 | Emergency (ER) | payer MEDICARE, OTHER, SELFPAY ==
[2024-08-15 14:35] VITALS: BP 130/63; PULSE 78; RESP 16; TEMP 36.1; O2SAT 98
[2024-08-15 14:50] VITALS: BMI 33.7
--- NOTE | 2024-08-15 15:28 | CT_ITS ---
STUDY: CT BRAIN WITHOUT CONTRAST REASON FOR EXAM: Female, 89 years old. trauma RADIATION DOSAGE (If Supplied By Facility): CTDIvol = ( 44.99 ) mGy, DLP = ( 829.85 ) mGycm TECHNIQUE: Transaxial CT imaging of the brain was performed without administration of intravenous contrast material. Individualized dose optimization techniques were used for this CT. COMPARISON: 01/03/2023 FINDINGS: Normal soft tissue structures. Normal calvarium. There is mild cerebral atrophy with widening of the extra-axial spaces and ventricular dilatation. There are areas of decreased attenuation within the white matter tracts of the supratentorial brain, consistent with microvascular disease changes. Normal basal ganglia and thalami. Normal brainstem. There is mild cerebellar atrophy. There is no intracranial hemorrhage. There are no findings of an acute ischemic infarction. 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 1.7 cm mucous retention cyst of the right sphenoid sinus. Stable postsurgical changes of the left globe. CT/Brain/Head without Contrast IMPRESSION: Chronic involutional changes of the brain. No change or acute abnormality. Electronically Signed: Juan Pisano MD at 16:16 EDT ,
[2024-08-15] MEDS: Lidocaine 1% (20 ml mdv) 20 ML Vial INFILT (15:57)
--- NOTE | 2024-08-15 15:57 | EDS_ITS ---
HPI HPI - Fall History of Present Illness Chief Complaint: Fall Informant: patient, EMS and SNF Narrative Narrative: 89-year-old female presenting to the emergency room with fall from nursing home facility. Patient struck her head and causing laceration to the left lateral periorbital area. Also skin tears to the left arm. No reported loss of consciousness. Patient is on aspirin therapy but not anticoagulated from the med list that I have received. She is a DNR comfort care. She is from [facility] living. The patient states that she went there because of frequent falls at home. [facility] Medical History Obesity Frequent falls Anxiety and depression Chronic anemia Hyperlipidemia Osteoarthritis HTN (hypertension) Fibromyalgia Spinal stenosis Macular degeneration Urine incontinence Fall Home Medications ?Medication ?Instructions ?Recorded ?Last Taken ?Type aspirin 81 mg tablet,delayed 81 mg PO DAILY@0800 01/15/17 Unknown History release calcium 600 mg (as 1 ea PO DAILY 01/15/17 Unknown History carbonate)-vitamin D3 20 mcg (800 unit) tablet (Caltrate with Vitamin D3) gabapentin 100 mg capsule 300 mg PO DAILY neuropathy 01/15/17 06/13/18 06:00 History (Neurontin) [id number] C-Mn 500 2 ea PO DAILY 01/15/17 Unknown History mg-400 mg capsule meloxicam 15 mg tablet (Mobic) 15 mg PO DAILY 01/15/17 Unknown History [id number]-gtnn-[id number] 8 mg-folic 400 1 ea PO DAILY 01/15/17 Unknown History mcg-K 50 mcg-lutein 300 mcg tablet (Centrum Silver Women) pravastatin 20 mg tablet 20 mg PO QHS 01/15/17 Unknown History sertraline 50 mg tablet 100 mg PO DAILY 01/15/17 Unknown History vit C 250 mg-vit E 90 mg-zinc 40 2 ea PO DAILY 10/14/17 Unknown History mg-copper 1 bo-lvhfop-ablyev capsule (PreserVision AREDS-2) docusate sodium 100 mg capsule 100 mg PO BID #30 caps 06/16/18 Unknown Rx magnesium hydroxide 400 mg/5 mL 30 ml PO DAILY PRN PRN 06/16/18 Unknown Rx oral suspension Constipation ##14 diltiazem HCl 120 mg 120 mg PO DAILY 11/20/21 Unknown History capsule,extended release 24 hr losartan 100 mg tablet 100 mg PO DAILY 01/04/23 Unknown History nystatin 100,000 unit/gram topical 1 unit topical DAILY 01/04/23 Unknown History cream oxybutynin chloride 10 mg 10 mg PO DAILY 01/04/23 Unknown History tablet,extended release 24 hr Allergy/AdvReac Type Severity Reaction Status Date / Time iodine Allergy Rash Verified 08/15/24 14:35 COUGH SYRUP W/IODINE Allergy Rash Uncoded 01/03/23 22:16 Family History Mother Colon cancer Maternal family history of colon cancer with metastatic disease to the liver Father Prostate cancer Paternal family history of prostate cancer with metastatic disease to the bones. Sister Colon cancer Breast cancer Surgical History Status post hip surgery S/P carpal tunnel release S/P cataract extraction History of eye surgery History of hysterectomy History of appendectomy History of tonsillectomy and adenoidectomy Social History housing: assisted living facility Smoking Status: Never smoker alcohol intake: never substance use type: does not use ROS ROS ED Constitutional Constitutional ED: Denies chills, fever(s) or weight loss Eyes Eyes: Denies change in vision or diplopia ENT ENT ED: Denies ear pain, rhinorrhea or sore throat Cardiovascular Cardiovascular: Denies chest pain, orthopnea, palpitations or racing heartbeat Respiratory/Chest Respiratory/Chest: Denies cough, dyspnea or orthopnea Gastrointestinal Gastrointestinal: Denies abdominal pain, diarrhea, nausea or vomiting Genitourinary Genitourinary ED: Denies dysuria, hematuria or urinary frequency Musculoskeletal Musculoskeletal: Denies arthralgias or myalgias Integumentary Reports other Details: Skin tears left elbow left proximal arm laceration left lateral periorbital region ; Denies abscess or rash Neurologic Neurologic: Denies headache(s) or weakness Psychiatric Psychiatric: Denies anxiety, depression, suicidal ideation or suicidal thoughts Endocrine Endocrinology: Denies polydipsia, polyphagia or polyuria Allergic/Immunologic Allergic/Immunologic ED: Denies mouth swelling, tongue swelling or urticaria EXAM Physical Exam Const Vital Signs: 08/15/24 14:35 08/15/24 14:54 08/15/24 16:00 Temperature 97 F L Temperature Source Temporal Pulse Rate 78 74 Respiratory Rate 16 18 Respiratory Effort Normal Non-Labored Respiratory Depth Normal Respiratory Pattern Normal Blood Pressure 130/63 H 147/63 H Blood Pressure Mean 85 91 Pulse Ox 98 93 Oxygen Delivery Method Room Air Room Air Positive well nourished and well developed General Appearance ED: well developed HEENT Reports normocephalic and moist mucous membranes HEENT Narrative: Left forehead lateral periorbital hematoma with a 1 cm laceration. No active bleeding. Eyes PERRL and EOMs intact bilaterally Neck no lymphadenopathy, supple and no JVD Resp normal respiratory effort and clear to auscultation bilaterally Cardio regular rate, regular rhythm and no murmurs GI normal to inspection, nondistended, normoactive bowel sounds and non-tender Palpation: soft Back/Spine no CVA tenderness and normal ROM Extremity Extremity Narrative: There is a 2 cm skin tear to the posterior left elbow. About half of the skin is missing. The lateral half years intact and able to smooth it out and get good wound edge approximation. No obvious deformity. There is full range of motion. Neurovascular intact distal. There is a superficial half centimeter skin tear over the left biceps area. General Extremety ED: Negative for edema General Extremity: Negative for edema Neuro oriented x3 and CN's II-XII intact bilaterally Nargis Coma Scale: document GCS findings Spontaneous Obeys Commands Oriented 15 Sensorium / Orientation: alert Motor Exam: strength 5/5 throughout Psych mental status grossly normal Mood & Affect: Negative for depressed or tearful Skin no rashes or lesions noted and no wounds MDM MDM MDM Narrative Medical decision making narrative: Differential diagnosis includes but not limited to fracture intracranial hemorrhage/hematoma concussion skin tear laceration elbow fracture Dermabond was used to keep the wound edges approximated on the elbow skin tear. 1% lidocaine used to fully anesthetized the laceration on the face. 3 simple erupted 4-0 Ethilon sutures were used to close the skin. CT the brain demonstrates no acute intracranial hemorrhage or hematoma. Patient will be discharged home with local wound care instructions for suture removal in 5 to 7 days. History & Record Review Discussion w/independent historian: EMS personnel, Patient and Other ([facility]) Radiography Diagnostic Testing: Clinical Impression(s) from Imaging Studies Brain CT 08/15/24 15:28 IMPRESSION: Chronic involutional changes of the brain. No change or acute abnormality. Electronically Signed: Juan Pisano MD at 16:16 EDT , Discharge Plan Triage Chief Complaint: Fall ED Provider: Simone Olvera Dx/Rx/DC Orders Clinical Impression: Head injury, Face lacerations, Traumatic hematoma of forehead, Skin tear of left forearm without complication Instructions: ED Head Injury (Adult), ED Laceration, All Closures Prescriptions: No Action meloxicam [Mobic] 15 MG tablet 15 mg PO DAILY aspirin 81 MG tablet 81 mg PO DAILY@0800 pravastatin 20 MG tablet 20 mg PO QHS gabapentin [Neurontin] 100 MG capsule 300 mg PO DAILY sertraline 50 MG tablet 100 mg PO DAILY [id number] C-Mn 1 EACH capsule 2 ea PO DAILY Centrum Silver Women 1 EACH tablet 1 ea PO DAILY calcium carbonate-vitamin D3 [Caltrate with Vitamin D3] 1 EACH tablet 1 ea PO DAILY PreserVision AREDS-2 1 EACH capsule 2 ea PO DAILY magnesium hydroxide 30 ML suspension 30 ml PO DAILY PRN PRN (Reason: Constipation) Qty: 14 0RF docusate sodium 100 MG capsule 100 mg PO BID Qty: 30 0RF diltiazem HCl 120 mg capsule,extended release 24hr 120 mg PO DAILY oxybutynin chloride 10 mg Tablet Extended Release 24hr 10 mg PO DAILY nystatin 100,000 unit/gram cream 1 unit TOPICAL DAILY losartan 100 mg tablet 100 mg PO DAILY Primary Care Provider: Mati Landon Referrals: Mati Landon MD [Primary Care Provider] - 7 Days for suture removal Print Language: Mohawk Disposition Disposition: Home, Self Care
[2024-08-15 16:00] VITALS: BP 147/63; PULSE 74; RESP 18; O2SAT 93
--- NOTE | 2024-08-15 16:46 | ED.RN ---
left message for James Delgado regarding pt's return
--- NOTE | 2024-08-15 16:54 | NURSING ---
CALLED [facility], ETA IS 2 TO 3 HOURS
--- OUTSIDE RECORDS SUMMARY | 2024-08-15 17:24 | XMS RPT_ITS | CCD ---
Author Organization [facility] Care Team Providers Care Cutter Grinder Name Role Phone Cyndi Ruiz Unavailable Unavailable PROVIDER, UNKNOWN Unavailable Unavailable LEONOR, JROI-CHI Unavailable Unavailable Isael Reynoso Unavailable Unavailable PROVIDER, UNKNOWN Unavailable Unavailable LEONOR, JORI-CHI Unavailable Unavailable Cyndi Ruiz Unavailable Unavailable PROVIDER, UNKNOWN Unavailable Unavailable LEONOR, JORI-CHI Unavailable Unavailable Jordan Levine MD Primary Care Provider Jordan Levine MD Primary Care Provider Jordan Levine MD Primary Care Provider Jordan Levine MD Primary Care Provider Jordan Levine MD Primary Care Provider JORDAN LEVINE Primary Care Unavailable HARRY LAURA Attending Unavailable HARRY LAURA Attending Unavailable JORDAN LEVINE Primary Care Unavailable JORDAN LEVINE Attending Unavailable JORDAN LEVINE Primary Care Unavailable JORDAN LEVINE Primary Care Unavailable JORDAN LEVINE Attending Unavailable JORDAN LEVINE Primary Care Unavailable MING LAURASSE Attending Unavailable JORDAN LEVINE Primary Care Unavailable MING LAURASSE Referring Unavailable Allergies Allergy Classification Reported Allergen(s) Allergy Type Date of Onset Reaction(s) Facility guaiFENesin (1 source) guaiFENesin Drug Allergy 07-30-2009 Rash [facility] Iodine (and Iodine containting drugs) (1 source) Iodine Drug Allergy 07-30-2009 Rash [facility] (20 sources) guaiFENesin; Translations: [GUAIFENESIN] Drug Allergy 07-30-2009 [facility] Work Phone: (20 sources) Iodine; Translations: [IODINE] Drug Allergy 07-30-2009 Rash [facility] Work Phone: Medications Current Medications Medication Drug Class(es) Dates Sig (Normalized) Sig (Original) acetaminophen 325 mg oral tablet (20 sources) Start: 023 take 2 tablets by mouth every six hours as needed acetaminophen (TYLENOL) 325 mg tablet Take 2 tablets by mouth every 6 hours as needed for pain. 01/19/2023 Active Comment on above: Take 2 tablets by mo [facility] every 6 hours as needed for pain. aspirin 81 mg delayed release oral tablet (20 sources) Platelet Aggregation Inhibitor, Nonsteroidal Anti-inflammato ry Drug Start: 009 aspirin(ECOTRIN LOW STRENGTH 81 MG TAB) Take one(1) tablet daily. 0 07/30/2009 Active Comment on above: Take one(1) tablet d aily. calcium carbonate 1500 mg oral tablet (20 sources) Start: 020 calcium carbonate(CALTRATE 600 600 MG (1,500 MG) TAB) Take by mouth once daily. 0 11/24/2019 Active Comment on above: Take by mouth once d aily. Carboxymethylcellulose (20 sources) carboxymethylcel lulose sodium (REFRESH OPHTHALMIC) Use 1 Drop in eyes as needed. Active carboxymethylcel lulose sodium (REFRESH OPHTHALMIC) Use 1 Drop in eyes as needed. 0 Active Comment on above: Use 1 Drop in eyes a s needed. cephalexin 500 mg oral capsule (1 source) Cephalosporin Antibacterial Start: 11-16-19 24 End: 11-26-19 24 take 1 capsule by mouth three times daily cephALEXin (KEFLEX) 500 mg capsule Indications: Cellulitis of leg, right Take 1 capsule by mouth three times a day for 10 days. 30 capsule 0 11/16/2023 11/26/2023 Active Comment on above: Take 1 capsule by [facility] three times a day for 10 days. 24 hr dilTIAZem hydrochloride 120 mg extended release oral capsule (20 sources) Calcium Channel Renetta Start: 06-14-20 23 End: 07-27-20 24 take 1 capsule by mouth once daily dilTIAZem CD (CARDIZEM CD) 120 mg 24 hr capsule Indications: Essential hypertension , Near syncope , Left ventricular hypertrophy Take 1 capsule by mouth once daily. 90 capsule 3 07/27/2024 Active Start: 08-28-2022 take 1 capsule by mo [facility] once daily dilTIAZem CD (CARDIZEM CD) 120 mg 24 hr capsule Indications: Near syncope , Left ventricular hypertrophy , Essential hypertension Take 1 capsule by mouth once daily. 90 capsule 3 08/28/2022 Active Start: 09-12-2021 take 1 capsule by mo [facility] once daily dilTIAZem CD (CARDIZEM CD) 120 mg 24 hr capsule Indications: Near syncope , Left ventricular hypertrophy , Essential hypertension Take 1 capsule by mouth once daily. 90 capsule 3 09/12/2021 Active Comment on above: Take 1 capsule by mo [facility] once daily. gabapentin 300 mg oral capsule (20 sources) Anti-epileptic Agent Start: 10-14-2023 End: 09-02-2024 take 1 capsule by mouth once daily gabapentin (NEURONTIN) 300 mg capsule Indications: Lumbar radiculopathy Take 1 capsule by mouth once daily for 180 days. 90 capsule 1 03/06/2024 09/02/2024 Active Start: 03-18-2023 End: 09-14-2023 take 1 capsule by mouth once daily gabapentin (NEURONTIN) 300 mg capsule Indications: Lumbar radiculopathy Take 1 capsule by mouth once daily for 180 days. 90 capsule 1 03/18/2023 09/14/2023 Active Start: 09-12-2021 End: 02-24-2023 take 1 capsule by mouth once daily gabapentin (NEURONTIN) 300 mg capsule Indications: Lumbar radiculopathy Take 1 capsule by mouth once daily for 180 days. 90 capsule 1 08/28/2022 Active Comment on above: Take 1 capsule by mo ut once daily for 180 days. losartan potassium 100 mg oral tablet (20 sources) Angiotensin 2 Receptor Renetta Start: take 1 tablet by mouth once daily losartan (COZAAR) 100 mg tablet Indications: Essential hypertension Take 1 tablet by mouth once daily. 90 tablet 3 04/21/2024 Active Start: 06-14-2023 take 1 tablet by [place] [facility] once daily losartan (COZAAR) 100 mg tablet Indications: Essential hypertension Take 1 tablet by mouth once daily. 90 tablet 3 06/14/2023 Active Start: 08-28-2022 take 1 tablet by [place] [facility] once daily losartan (COZAAR) 100 mg tablet Indications: Essential hypertension Take 1 tablet by mouth once daily. 90 tablet 3 08/28/2022 Active Start: 09-12-2021 take 1 tablet by [place] [facility] once daily losartan (COZAAR) 100 mg tablet Indications: Essential hypertension Take 1 tablet by mouth once daily. 90 tablet 3 09/12/2021 Active Comment on above: Take 1 tablet by [place] [facility] once daily. nystatin [id number] unt/ml topical cream (17 sources) Polyene Antifungal Start: 04-21-2024 nystatin (MYCOSTATIN) cream Apply to affected area once daily as needed. 30 g 5 04/21/2024 Active Start: 03-23-2024 nystatin (MYCO STATIN) cream Apply to affected area once daily as needed. 0 03/23/2024 Active Start: 01-10-2024 End: 01-24-2024 nystatin (MYCOSTATIN) cream Indications: Yeast dermatitis Apply to affected area two times a day for 14 days. 30 g 2 01/10/2024 01/24/2024 Active Start: 06-14-2023 End: 06-28-2023 nystatin (MYCOSTATIN) cream Indications: Yeast dermatitis Apply to affected area twice daily for 14 days. 30 g 2 06/14/2023 06/28/2023 Active Start: 09-12-2021 End: 09-18-2022 nystatin (MYCOSTATIN) cream Indications: Yeast dermatitis Apply to affected area twice daily. 30 g 2 08/28/2022 Active Comment on above: Apply to affected ar ea twice daily. Apply to affected ar ea twice daily for 14 days. Apply to affected ar ea two times a day for 14 days. pravastatin sodium 20 mg oral tablet (20 sources) HMG-CoA Reductase Inhibitor Start: take 1 tablet by mouth once daily pravastatin (PRAVACHOL) 20 mg tablet Indications: Mixed hyperlipidemia Take 1 tablet by mouth once daily. 90 tablet 3 04/21/2024 Active Start: 06-14-2023 take 1 tablet by [place] [facility] once daily pravastatin (PRAVACHOL) 20 mg tablet Indications: Mixed hyperlipidemia Take 1 tablet by mouth once daily. 90 tablet 3 06/14/2023 Active Start: 08-28-2022 take 1 tablet by [place] [facility] once daily pravastatin (PRAVACHOL) 20 mg tablet Indications: Mixed hyperlipidemia Take 1 tablet by mouth once daily. 90 tablet 3 08/28/2022 Active Start: 09-12-2021 take 1 tablet by [place] [facility] once daily pravastatin (PRAVACHOL) 20 mg tablet Indications: Mixed hyperlipidemia Take 1 tablet by mouth once daily. 90 tablet 3 09/12/2021 Active Comment on above: Take 1 tablet by [place] [facility] once daily. predniSONE 10 mg oral tablet (1 source) Start: 06-03-2022 End: 06-12-2022 predniSONE (DELTASONE) 10 mg tablet Indications: Lumbar radiculopathy , Right hip pain Take 4 tabs daily for 3 days, then 2 tabs daily for 3 days, then 1 tab daily for 3 days with food. 21 tablet 0 06/03/2022 06/12/2022 Active Comment on above: Take 4 tabs daily fo r 3 days, then 2 tabs daily for 3 days, then 1 tab daily for 3 days with food. sertraline 50 mg oral tablet (20 sources) Serotonin Reuptake Inhibitor Start: 10-14-2023 End: 03-08-2024 sertraline (ZOLOFT) 50 mg tablet TAKE 2 TABLETS ONE TIME DAILY 180 tablet 3 03/08/2024 Active Start: 01-19-2023 take 2 tablets by mo [facility] once daily sertraline (ZOLOFT) 50 mg tablet Take 2 tablets by mouth once daily. 90 tablet 3 01/19/2023 Active Start: 08-28-2022 End: 01-19-2023 take 1 tablet by mouth once daily sertraline (ZOLOFT) 50 mg tablet Take 1 tablet by mouth once daily. 90 tablet 3 08/28/2022 01/19/2023 Discontinued Start: 09-12-2021 take 1 tablet by [place] once daily sertraline (ZOLOFT) 50 mg tablet Take 1 tablet by mouth once daily. 90 tablet 3 09/12/2021 Active Comment on above: Take 1 tablet by [place] once daily. Take 2 tablets by mo [facility] once daily. triamcinolone acetonide 0.25 mg/ml topical cream (20 sources) Corticosteroid triamcinolone (KENALOG) 0.025 % cream Apply to affected area twice daily. Active Comment on above: Apply to affected ar ea twice daily. vibegron (GEMTESA) 75 mg tablet (17 sources) Start: 09-21-20 take 1 tablet by mouth once daily vibegron (GEMTESA) 75 mg tablet Take 1 tablet by mouth once daily. 09/21/2023 Active Start: 09-21-2023 take 1 tablet by [place] [facility] once daily vibegron (GEMTESA) 75 mg tablet Take 1 tablet by mouth once daily. 0 09/21/2023 Active Comment on above: Take 1 tablet by [place] [facility] once daily. vit C/E/Zn/coppr/lutein/zeaxan (PRESERVISION AREDS 2 ORAL) (20 sources) vit C/E/Zn/coppr/lutein/zeaxan (PRESERVISION AREDS 2 ORAL) Take 1 capsule by mouth twice daily. Active vit C/E/Zn/coppr /lutein/zeaxan (PRESERVISION AREDS 2 ORAL) Take 1 capsule by mouth twice daily. 0 Active Comment on above: Take 1 capsule by mo [facility] twice daily. Completed/Discontinued Medications Medication Drug Class(es) Dates Sig (Normalized) Sig (Original) apixaban 5 mg oral tablet (11 sources) Factor Xa Inhibitor Start: 03-06-2024 End: 03-23-2024 take 1 tablet by mouth twice daily apixaban (ELIQUIS) 5 mg tab(s) Indications: Acute deep vein thrombosis (DVT) of proximal vein of right lower extremity (HCC) Take 1 tablet by mouth two times a day. 180 tablet 0 03/06/2024 03/23/2024 Discontinued (Course of therapy completed) Start: 12-16-2023 take 1 tablet by [place] [facility] twice daily apixaban (ELIQUIS) 5 mg tab(s) Indications: Acute deep vein thrombosis (DVT) of proximal vein of right lower extremity (HCC) Take 1 tablet by mouth two times a day. Patient should start on December 16, 2023. 60 tablet 3 12/16/2023 Active Start: 12-16-2023 take 1 tablet by [place] [facility] twice daily apixaban (ELIQUIS) 5 mg tab(s) Indications: Acute deep vein thrombosis (DVT) of proximal vein of right lower extremity (HCC) Take 1 tablet by mouth two times a day. Patient should start on December 16, 2023. 60 tablet 3 12/16/2023 Active Start: 11-16-2023 End: 12-16-2023 take 2 tablets by mouth twice daily, then take 1 tablet by mouth twice daily apixaban (ELIQUIS DVT-PE TREAT 30D START) 5 mg (74 tabs) Indications: Acute deep vein thrombosis (DVT) of proximal vein of right lower extremity (HCC) Take 2 tablets (10 mg) by mouth twice daily for 7 days. Then take 1 tablet (5 mg) by mouth twice daily for 23 days 74 tablet 0 11/16/2023 12/16/2023 Active Comment on above: Take 2 tablets (10 m g) by mouth twice daily for 7 days. Then take 1 tablet (5 mg) by mouth twice daily for 23 days Take 1 tablet by [place] [facility] two times a day. Patient should start on December 16, 2023. furosemide 20 mg oral tablet (10 sources) Loop Diuretic Start: 11-16-2023 End: 03-23-2024 take 1 tablet by mouth once daily furosemide (LASIX) 20 mg tablet Indications: Right leg swelling Take 1 tablet by mouth once daily for 7 days. 7 tablet 0 11/16/2023 03/23/2024 Discontinued (Course of therapy completed) Comment on above: Take 1 tablet by [place] [facility] once daily for 7 days. lidocaine ZAt-bw-bkubpku-menth 4-30-10 % ktcg (4 sources) End: 09-18-2022 lidocaine ABw-pb-osqvqvp-menth 4-30-10 % ktcg Apply to affected area. As needed 0 09/18/2022 Discontinued lidocaine HCl-me -salicyl-menth 4-30-10 % ktcg Apply to affected area. As needed 0 Active Comment on above: Apply to affected ar ea. As needed meloxicam 15 mg oral tablet (12 sources) Nonsteroidal Anti-inflammatory Drug Start: take 1 tablet by mouth once daily meloxicam (MOBIC) 15 mg tablet Indications: Lumbar radiculopathy Take 1 tablet by mouth once daily. 90 tablet 3 06/14/2023 Active Start: 08-28-2022 take 1 tablet by [place] [facility] once daily meloxicam (MOBIC) 15 mg tablet Indications: Lumbar radiculopathy Take 1 tablet by mouth once daily. 90 tablet 3 08/28/2022 Active Start: 09-12-2021 take 1 tablet by [place] [facility] once daily meloxicam (MOBIC) 15 mg tablet Indications: Lumbar radiculopathy Take 1 tablet by mouth once daily. 90 tablet 3 09/12/2021 Active Comment on above: Take 1 tablet by [place] [facility] once daily. 24 hr oxybutynin chloride 10 mg extended release oral tablet (7 sources) Cholinergic Muscarinic Antagonist Start: 01-19-2023 take 1 tablet by mouth once daily oxybutynin ER (DITROPAN XL) 10 mg 24 hr tablet Take 1 tablet by mouth once daily. 0 01/19/2023 Active Comment on above: Take 1 tablet by [place] [facility] once daily. Problems Active Problems Problem Classification Problem Date Documented Da te Episodic/Chronic Anxiety disorders (18 sources) Mixed anxiety and depressive disorder; Translations: [Other specified anxiety disorders] Onset: 09-21-2023 09-21-2023 Chronic Deficiency and other anemia (1 source) Hemoglobin low; Translations: [Anemia, unspecified] 03-23-2024 Episodic Diabetes mellitus without complication (1 source) Increased glucose level; Translations: [Other abnormal glucose] Episodic Disorders of lipid metabolism (20 sources) Mixed hyperlipidemia; Translations: [Mixed hyperlipidemia] Chronic Essential hypertension (20 sources) Essential (primary) hypertension; Translations: [Essential hypertension] [...] fracture with routine healing] Onset: 03-10-2018 Episodic Genitourinary symptoms and ill-defined conditions (18 sources) Urinary incontinence; Translations: [Unspecified urinary incontinence] Onset: 09-21-2023 09-21-2023 Chronic Heart valve disorders (17 sources) Non-rheumatic mitral valve stenosis; Translations: [Nonrheumatic mitral (valve) stenosis] Onset: 12-31-2023 12-31-2023 Chronic Mycoses (4 sources) Candidiasis of skin; Translations: [Candidiasis of skin and nail] Episodic Neoplasms of unspecified nature or uncertain behavior (20 sources) Monoclonal gammopathy of uncertain significance; Translations: [Monoclonal gammopathy] Onset: 11-24-2018 11-24-2018 Chronic Occlusion or stenosis of precerebral arteries (20 sources) Bilateral stenosis of carotid arteries; Translations: [Occlusion and stenosis of bilateral carotid arteries] Onset: 09-20-2019 Chronic Osteoarthritis (20 sources) Unspecified osteoarthritis, unspecified site; Translations: [Osteoarthritis] Onset: 08-12-2013 Chronic Osteoporosis (2 sources) Age-related osteoporosis without current pathological fracture; Translations: [Age-related osteoporosis w/o current pathological fracture] Onset: 03-10-2018 Chronic Other aftercare (1 source) Post-discharge follow-up; Translations: [Encounter for follow-up examination after completed treatment for conditions other than malignant neoplasm] Episodic Other and ill-defined heart disease (20 sources) Left ventricular hypertrophy; Translations: [Cardiomegaly] Onset: 09-20-2019 09-20-2019 Chronic Other diseases of bladder and urethra (18 sources) Overactive bladder; Translations: [Overactive bladder] Onset: 09-21-2023 09-21-2023 Chronic Other endocrine disorders (20 sources) Primary hyperparathyroidism ; Translations: [Primary hyperparathyroidism [...] Chronic Other nutritional; endocrine; and metabolic disorders (20 sources) Hypercalcemia; Translations: [Hypercalcemia] Onset: 07-20-2019 07-20-2019 Chronic Retinal detachments; defects; vascular occlusion; and retinopathy (20 sources) Unspecified macular degeneration; Translations: [Degenerative disorder of macula ] Onset: 03-11-2018 05-25-2019 Chronic Spondylosis; intervertebral disc disorders; other back problems (20 sources) Lumbar radiculopathy; Translations: [Radiculopathy, lumbar region] Onset: 08-12-2013 Episodic Syncope (1 source) Near syncope; Translations: [Syncope and collapse] 07-27-2024 Episodic Unclassified (2 sources) Body mass index (BMI) 34.0-34.9, adult; Translations: [Body mass index (BMI) 34.0-34.9, adult] Onset: 03-11-2018 Chronic Unclassified (2 sources) Acquired absence of both cervix and uterus; Translations: [Acquired absence of both cervix and uterus] Onset: 03-11-2018 Episodic Past or Other Problems Problem Classification Problem Date Documented Da te Episodic/Chronic Heart valve disorders (1 source) Cardiac murmur, unspecified; Translations: [Heart murmur] Onset: 11-19-2023 Episodic Other bone disease and musculoskeletal deformities (20 sources) Osteopenia; Translations: [Other specified disorders of bone density and structure, unspecified site] Onset: 07-20-2019 07-20-2019 Episodic Other connective tissue disease (20 sources) Calcaneal spur; Translations: [Calcaneal spur, unspecified foot] Onset: 07-30-2009 07-30-2009 Episodic Other connective tissue disease (1 source) Other specified soft tissue disorders; Translations: [Right leg swelling] Onset: 11-19-2023 Episodic Other nervous system disorders (20 sources) Abnormal gait; Translations: [Unspecified abnormalities of gait and mobility] Onset: 08-12-2013 Episodic Phlebitis; thrombophlebitis and thromboembolism (20 sources) Acute deep vein thrombosis of lower limb; Translations: [Acute embolism and thrombosis of unspecified deep veins of right proximal lower extremity] Onset: 11-16-2023 11-16-2023 Episodic Skin and subcutaneous tissue infections (1 source) Cellulitis of right lower limb; Translations: [Cellulitis of leg, right] Onset: 11-19-2023 Episodic Sprains and strains (20 sources) Sprain of foot; Translations: [Unspecified sprain of unspecified foot, initial encounter] Onset: 07-30-2009 07-30-2009 Episodic Results Test Name Value Interpretation Reference Range Facility [facility] 06-19-[address] [facility] Telephone (FAMPWS) -- TERRIE SAMANO ([id number]) 1935 F Date Time Provider Department 06/19/24 JORDAN LEVINEPWS During your visit today, we recorded the following information about you: Lyn Flaherty MA 06/19/2024 3:53 PM Signed Office received fax from James Delgado regarding fall that occurred on 06/18/24 at 4:45 pm. Please review fax. Will fax back PCP's response to [phone]. ALVARADO Kaur Mark D, MD 06/20/2024 9:23 AM Signed Noted MD Reynold Douglass Rilee, MA 06/20/2024 11:03 AM Signed Form faxed back to information below. Lyn Flaherty MA Allergies As of Date: 06/19/2024 Noted Allergy Reaction COUGH SYRUP (GUAIFENESIN) 07/30/2009 2 - Rash IODINE 07/30/2009 2 - Rash Date Reviewed: 03/23/2024 Reviewed by: Lyn Flaherty MA - Fully Assessed Reason for Visit: Electronic Communication [230] Cmt: James Delgado [facility] Prescriptions as of 06/20/2024 - losartan (COZAAR) 100 mg tablet Take 1 tablet by mouth once daily. - nystatin (MYCOSTATIN) cream Apply to affected area once daily as needed. - pravastatin (PRAVACHOL) 20 mg tablet Take 1 tablet by mouth once daily. - sertraline (ZOLOFT) 50 mg tablet TAKE 2 TABLETS ONE TIME DAILY - gabapentin (NEURONTIN) 300 mg capsule Take 1 capsule by mouth once daily for 180 days. - vibegron (GEMTESA) 75 mg tablet Take 1 tablet by mouth once daily. - dilTIAZem CD (CARDIZEM CD) 120 mg 24 hr capsule Take 1 capsule by mouth once daily. - acetaminophen (TYLENOL) 325 mg tablet Take 2 tablets by mouth every 6 hours as needed for pain. - carboxymethylcellulose sodium (REFRESH OPHTHALMIC) Use 1 Drop in eyes as needed. - triamcinolone (KENALOG) 0.025 % cream Apply to affected area twice daily. - vit C/E/Zn/coppr/lutein/zeaxan (PRESERVISION AREDS 2 ORAL) Take 1 capsule by mouth twice daily. - calcium carbonate(CALTRATE 600 600 MG (1,500 MG) TAB) Take by mouth once daily. - aspirin(ECOTRIN LOW STRENGTH 81 MG TAB) Take one(1) tablet daily. Meds Comments as of 03/23/2024: Uses Biofreeze topical in the am on back Problem List As Of Date 06/19/2024 Noted Resolved Calcaneal Spur [M77.30] 07/30/2009 Sprain [...] artery stenosis [I65.23] 09/20/2019 Mixed hyperlipidemia [E78.2] Urinary incontinence [R32] 09/21/2023 OAB (overactive bladder) [N32.81] 09/21/2023 Anxiety with depression [F41.8] 09/21/2023 Acute deep vein thrombosis (DVT) of proximal ve*11/16/2023 Nonrheumatic mitral valve stenosis [I34.2] 12/31/2023 Encounter Status:Closed by LYN FLAHERTY on 06/20/24 [facility] 06-08-2024 [facility] Telephone (FAMPWS) -- TERRIE SAMANO ([id number]) 1935 F Date Time Provider Department 06/08/24 JORDAN LEVINE During your visit today, we recorded the following information about you: Lyn Flaherty MA 06/08/2024 3:40 PM Signed Office received fax from James Delgado on 06/07/24 regarding pt safety. Routed to PCP to review and note on. Once complete fax back to James Delgado at [phone]. Lyn Flaherty MA Resident rang call light at 0815 to report she had fallen. Upon entering room resident was sitting on bathroom floor, back against cupboards legs outstretched in front of her. Walker in reach. Small amount of blood noted on bathroom floor, and forehead. Resident stated she was getting ready to head down for breakfast after dressing, and while turning around she lost her balance and fell onto her left side, striking the left side of her head on the floor. Vitals: BP 166/82, P: 88, R: 20, T - 97.6(forehead). SpO2 93% RA. PERRLA.ROM per usual x 4 extremities. Was assisted to stand x 2 assist with FWB. Small raised area with laceration approximately 3 mm in size to left sie of forehead. Area cleansed with soap and water, dried, secured closed with 2 steri strips. No other bumps/banks/discolorations noted to skin. Ambulates about room with walker without c/o pain or difficulty. Ice pack applied to head, neuro check initiated. All notified of fall. Call pendent on person and working, will continue to monitor. HUGO - Rachelle Mahmood. Lyn Flaherty MA 06/08/2024 4:22 PM Signed PCP reviewed and noted, faxed back to info below. Lyn Flaherty MA Allergies As of Date: 06/08/2024 Noted Allergy Reaction COUGH SYRUP (GUAIFENESIN) 07/30/2009 2 - Rash IODINE 07/30/2009 2 - Rash Date Reviewed: 03/23/2024 Reviewed by: Lyn Flaherty MA - Fully Assessed Reason for Visit: Electronic Communication [890] Cmt: James Delgado re: fall Prescriptions as of 06/08/2024 - losartan (COZAAR) 100 mg tablet Take 1 tablet by mouth once daily. - nystatin (MYCOSTATIN) cream Apply to affected area once daily as needed. - pravastatin (PRAVACHOL) 20 mg tablet Take 1 tablet by mouth once daily. - sertraline (ZOLOFT) 50 mg tablet TAKE 2 TABLETS ONE TIME DAILY - gabapentin (NEURONTIN) 300 mg capsule Take 1 capsule by mouth once daily for 180 days. - vibegron (GEMTESA) 75 mg tablet Take 1 tablet by mouth once daily. - dilTIAZem CD (CARDIZEM CD) 120 mg 24 hr capsule Take 1 capsule by mouth once daily. - acetaminophen (TYLENOL) 325 mg tablet Take 2 tablets by mouth every 6 hours as needed for pain. - carboxymethylcellulose sodium (REFRESH OPHTHALMIC) Use 1 Drop in eyes as needed. - triamcinolone (KENALOG) 0.025 % cream Apply to affected area twice daily. - vit C/E/Zn/coppr/lutein/zeaxan (PRESERVISION AREDS 2 ORAL) Take 1 capsule by mouth twice daily. - calcium carbonate(CALTRATE 600 600 MG (1,500 MG) TAB) Take by mouth once daily. - aspirin(ECOTRIN LOW STRENGTH 81 MG TAB) Take one(1) tablet daily. Meds Comments as of 03/23/2024: Uses Biofreeze topical in the am on back Problem List As Of Date 06/08/2024 Noted Resolved Calcaneal Spur [M77.30] 07/30/2009 Sprain [...] artery stenosis [I65.23] 09/20/2019 Mixed hyperlipidemia [E78.2] Urinary incontinence [R32] 09/21/2023 OAB (overactive bladder) [N32.81] 09/21/2023 Anxiety with depression [F41.8] 09/21/2023 Acute deep vein thrombosis (DVT) of proximal ve*11/16/2023 Nonrheumatic mitral valve stenosis [I34.2] 12/31/2023 Encounter Status:Closed by LYN FLAHERTY on 06/08/24 [facility] 05-02-2024 [facility] TERRIE SAMANO ([id number]) 1935 F Date Time Provider Department 05/02/24 JORDAN LEVINE [facility] During your visit today, we recorded the following information about you: Lyn Flaherty MA 05/02/2024 1:36 PM Signed Office received fax from James Delgado today. Routed to PCP to review. Once reviewed fax back to James Delgado at [phone]. Lyn Flaherty MA Note text: Resident noted to have 2-3+ pitting edema to RLE with a small area 1.5 cm x 1.5 cm seeping serous fluid, 1 + pitting edema to LLE. Redness noted bilaterally, no warmth or pain. Reports has been like this fo ra couple days. Has been compliant with wearing aurelio hose but does not elevate legs. Dressing applied ot seeping area and encouraged to keep legs elevated AMAP. Update to PCP for further instruction, will continue to monitor. Jordan Levine MD 05/02/2024 3:55 PM Signed Noted; continue to monitor MD Reynold Douglass Rilee, MA 05/02/2024 4:22 PM Signed Paperwork faxed back to James Delgado at number below. Lyn Flaherty MA Allergies As of Date: 05/02/2024 Noted Allergy Reaction COUGH SYRUP (GUAIFENESIN) 07/30/2009 2 - Rash IODINE 07/30/2009 2 - Rash Date Reviewed: 03/23/2024 Reviewed by: Lyn Flaherty MA - Fully Assessed Reason for Visit: Electronic Communication [890] Cmt: James Delgado Prescriptions as of 05/02/2024 - losartan (COZAAR) 100 mg tablet Take 1 tablet by mouth once daily. - nystatin (MYCOSTATIN) cream Apply to affected area once daily as needed. - pravastatin (PRAVACHOL) 20 mg tablet Take 1 tablet by mouth once daily. - sertraline (ZOLOFT) 50 mg tablet TAKE 2 TABLETS ONE TIME DAILY - gabapentin (NEURONTIN) 300 mg capsule Take 1 capsule by mouth once daily for 180 days. - vibegron (GEMTESA) 75 mg tablet Take 1 tablet by mouth once daily. - dilTIAZem CD (CARDIZEM CD) 120 mg 24 hr capsule Take 1 capsule by mouth once daily. - acetaminophen (TYLENOL) 325 mg tablet Take 2 tablets by mouth every 6 hours as needed for pain. - carboxymethylcellulose sodium (REFRESH OPHTHALMIC) Use 1 Drop in eyes as needed. - triamcinolone (KENALOG) 0.025 % cream Apply to affected area twice daily. - vit C/E/Zn/coppr/lutein/zeaxan (PRESERVISION AREDS 2 ORAL) Take 1 capsule by mouth twice daily. - calcium carbonate(CALTRATE 600 600 MG (1,500 MG) TAB) Take by mouth once daily. - aspirin(ECOTRIN LOW STRENGTH 81 MG TAB) Take one(1) tablet daily. Meds Comments as of 03/23/2024: Uses Biofreeze topical in the am on back Problem List As Of Date 05/02/2024 Noted Resolved Calcaneal Spur [M77.30] 07/30/2009 Sprain [...] artery stenosis [I65.23] 09/20/2019 Mixed hyperlipidemia [E78.2] Urinary incontinence [R32] 09/21/2023 OAB (overactive bladder) [N32.81] 09/21/2023 Anxiety with depression [F41.8] 09/21/2023 Acute deep vein thrombosis (DVT) of proximal ve*11/16/2023 Nonrheumatic mitral valve stenosis [I34.2] 12/31/2023 Encounter Status:Closed by LYN FLAHERTY on 05/02/24 [facility] TERRIE SAMANO ([id number]) 1935 F Date Time Provider Department 05/01/24 JORDAN LEVINE [facility] During your visit today, we recorded the following information about you: Lyn Flaherty MA 05/01/2024 12:19 PM Signed Office received fax from James Delgado regarding pt fall. Fax back to James Delgado at [phone]. Lyn Flaherty MA 04/30/24 note text: Another resident alerted this Nurse that someone had fallen in the riggins. Found resident lying on her left side outside her apartment door. Stated she was attempted to step on a fly, lost her balance and fell. Stated she hit the left side of her head. No redness or swelling noted to head or elsewhere. Vitals taken, BP 154/70, P: 96, R: 20, SPO2: 94%. 2 assist to stand and resident able to ambulate into apartment. Full ROM per usual. Neuro-checks initiated. PCP and AL manager technical training notified, message left with sister. Savannah Guzman Nursing - RN Lyn Flaherty MA 05/01/2024 7:22 PM Signed Reviewed and noted by PCP. Faxed back to information below. Lyn Flaherty MA Allergies As of Date: 05/01/2024 Noted Allergy Reaction COUGH SYRUP (GUAIFENESIN) 07/30/2009 2 - Rash IODINE 07/30/2009 2 - Rash Date Reviewed: 03/23/2024 Reviewed by: Lyn Flaherty MA - Fully Assessed Reason for Visit: Electronic Communication [890] Cmt: James Danny Prescriptions as of 05/01/2024 - losartan (COZAAR) 100 mg tablet Take 1 tablet by mouth once daily. - nystatin (MYCOSTATIN) cream Apply to affected area once daily as needed. - pravastatin (PRAVACHOL) 20 mg tablet Take 1 tablet by mouth once daily. - sertraline (ZOLOFT) 50 mg tablet TAKE 2 TABLETS ONE TIME DAILY - gabapentin (NEURONTIN) 300 mg capsule Take 1 capsule by mouth once daily for 180 days. - vibegron (GEMTESA) 75 mg tablet Take 1 tablet by mouth once daily. - dilTIAZem CD (CARDIZEM CD) 120 mg 24 hr capsule Take 1 capsule by mouth once daily. - acetaminophen (TYLENOL) 325 mg tablet Take 2 tablets by mouth every 6 hours as needed for pain. - carboxymethylcellulose sodium (REFRESH OPHTHALMIC) Use 1 Drop in eyes as needed. - triamcinolone (KENALOG) 0.025 % cream Apply to affected area twice daily. - vit C/E/Zn/coppr/lutein/zeaxan (PRESERVISION AREDS 2 ORAL) Take 1 capsule by mouth twice daily. - calcium carbonate(CALTRATE 600 600 MG (1,500 MG) TAB) Take by mouth once daily. - aspirin(ECOTRIN LOW STRENGTH 81 MG TAB) Take one(1) tablet daily. Meds Comments as of 03/23/2024: Uses Biofreeze topical in the am on back Problem List As Of Date 05/01/2024 Noted Resolved Calcaneal Spur [M77.30] 07/30/2009 Sprain [...] artery stenosis [I65.23] 09/20/2019 Mixed hyperlipidemia [E78.2] Urinary incontinence [R32] 09/21/2023 OAB (overactive bladder) [N32.81] 09/21/2023 Anxiety with depression [F41.8] 09/21/2023 Acute deep vein thrombosis (DVT) of proximal ve*11/16/2023 Nonrheumatic mitral valve stenosis [I34.2] 12/31/2023 Encounter Status:Closed by LYN FLAHERTY on 05/01/24 [facility] 03-30-2024 [facility] Telephone ([facility]) -- TERRIE SAMANO ([id number]) 1935 F Date Time Provider Department 03/30/24 JORDAN LEVINE During your visit today, we recorded the following information about you: Citlalli Arana MA 03/30/2024 8:48 AM Signed [facility] sends fax notifying provider that pt had a fall 03/29/24. Note text: Staff alerted nurse that resident had fallen in the hallway at 0745. When approaching resident, she was sitting on bottom on hallway floor, legs outstretched in front of her with back against wall. Walker in reach. Resident stated she was trying to move out of her neighbor's way, when she lost her balance and fell. No new injures noted/reported, denied hitting head. Resident stated, I was testing the force of gravity once again. Neighbor stated, I don't know why she did that, I had more than enough room but she seen me, slammed herself up against the wall and slide down it. I just don't know why she did that. Vitals: BP-162/82, 78, 20, 97.6(forehead)Sp)2-94%RA, PERRLA.ROM equal per usual x 4 extremities. Assisted to stand x2 assist with FWB. No bumps/banks/discolorations of skin. Ambulated to DR with walker for breakfast without c/o pain or difficulty. No c/o voiced, will continue to monitor. PCP, AL director, Sister Mari notified. Citlalli Arana MA Allergies As of Date: 03/30/2024 Noted Allergy Reaction COUGH SYRUP (GUAIFENESIN) 07/30/2009 2 - Rash IODINE 07/30/2009 2 - Rash Date Reviewed: 03/23/2024 Reviewed by: Lyn Flaherty MA - Fully Assessed Reason for Visit: Electronic Communication [890] Cmt: [facility] faxed report Prescriptions as of 03/30/2024 - nystatin (MYCOSTATIN) cream Apply to affected area once daily as needed. - sertraline (ZOLOFT) 50 mg tablet TAKE 2 TABLETS ONE TIME DAILY - gabapentin (NEURONTIN) 300 mg capsule Take 1 capsule by mouth once daily for 180 days. - vibegron (GEMTESA) 75 mg tablet Take 1 tablet by mouth once daily. - losartan (COZAAR) 100 mg tablet Take 1 tablet by mouth once daily. - dilTIAZem CD (CARDIZEM CD) 120 mg 24 hr capsule Take 1 capsule by mouth once daily. - pravastatin (PRAVACHOL) 20 mg tablet Take 1 tablet by mouth once daily. - acetaminophen (TYLENOL) 325 mg tablet Take 2 tablets by mouth every 6 hours as needed for pain. - carboxymethylcellulose sodium (REFRESH OPHTHALMIC) Use 1 Drop in eyes as needed. - triamcinolone (KENALOG) 0.025 % cream Apply to affected area twice daily. - vit C/E/Zn/coppr/lutein/zeaxan (PRESERVISION AREDS 2 ORAL) Take 1 capsule by mouth twice daily. - calcium carbonate(CALTRATE 600 600 MG (1,500 MG) TAB) Take by mouth once daily. - aspirin(ECOTRIN LOW STRENGTH 81 MG TAB) Take one(1) tablet daily. Meds Comments as of 03/23/2024: Uses Biofreeze topical in the am on back Problem List As Of Date 03/30/2024 Noted Resolved Calcaneal Spur [M77.30] 07/30/2009 Sprain [...] artery stenosis [I65.23] 09/20/2019 Mixed hyperlipidemia [E78.2] Urinary incontinence [R32] 09/21/2023 OAB (overactive bladder) [N32.81] 09/21/2023 Anxiety with depression [F41.8] 09/21/2023 Acute deep vein thrombosis (DVT) of proximal ve*11/16/2023 Nonrheumatic mitral valve stenosis [I34.2] 12/31/2023 Encounter Status:Closed by CITLALLI ARANA on 03/30/24 Normal [facility] CNOVon 03-23-2024 CNOV Office Visit ([facility] ) -- TERRIE SAMANO ([id number]) 1935 F Date Time Provider Department 03/23/24 3:00 PM [facility] During your visit today, we recorded the following information about you: Pulse Respiration Blood pressure Weight 80/minute 18/minute 132/84 78.7 kg Jordan Levine MD 03/23/2024 4:57 PM Signed Chief Complaint Patient presents with: F/U 6 Month HPI Terrie Samano is a 89 year old female who presents here today for 6 month follow up. Resides at [facility]. Pt feels that it is easier for her to get blood work done at [facility]. Uses a walker and a Rolator, has had multiple falls. She does not do steps well, she uses a lift to get on and off the bus. No bowel, GI, or urinary issues. Follows with Urologist, Dr. Mullen. She is taking Gemtesa 75 mg daily at supper time. Finds medication is helping, has occasional accidents No longer on Ditropan. Uses [facility] depends. At night she finds it hard to get out of bed so she puts a pad and towel down on her bed. Did have an accident last night where she urinated on her mattress pad. Lipid: Tries to watch her diet. [facility] does have a set diet plan there, but you can pick other options. Does try to do some exercising such as walking. Does do some stretching. Taking Pravastatin 20 mg daily and ASA 81 mg daily. Depression/AGUILAR: Taking Zoloft 50 mg 2 pills once daily. HTN: Denies checking BP, no chest pains, dizziness, or SOB. Notes she had fallen at [facility] and when they checked her vitals her BP was significantly elevated in the 190's/100's. Was sent to ED and admitted for a day then d/c home. Taking Losartan 100 mg daily and Cardizem 120 mg daily. At her visit with Harry Teodoro in December he noted heart murmur was auscultated. Echocardiogram was ordered and revealed mild mitral valve stenosis with +1 tricuspid valve regurgitation. DVT/Edema - Pt saw Harry Laura SPA TECHNICIAN in Oct for Cellulitis of right leg, swelling and pain. She had US done which showed DVT. Started on Eliquis 5 mg BID and Lasix 20 mg. Pt at this time states cellulitis has since resolved and doing well. Does have some residual swelling. No pain in lower leg. Pt wears compression aurelio hose. These are put at assisted living. Pain - Chronic back pain. Takes Gabapentin 300 mg once daily. Reports hx of neck injury from 1978. Does do exercises to help with pain in her back and neck. Hx of injections by Dr. Leger. Does have intermittent numbness in her fingertips. Notes having soreness in her upper arm/elbows. At times when holding a coffee cup this will cause her to have the pain, when using both hands this helps reduce the pain. Pt is involved in a Long Life Study. She will be receiving a call tomorrow to talk to them. She reviewed with Nursing staff and was notified she has fallen 17 x in the past year. Prior to being admitted into [facility] she fell 7x. Pt felt she needed to be in Assisted Living due to increased falls and feel safer. Does feel it's better at [facility]. Pt uses a walker when ambulating. Pt notes broken wrist x 2 and hip due to falls. - Covid up to date 09/21/23. Has Adv Dir/Living Will on file. RSV and Shingrix vaccine will need to be received through Pharmacy due to Medicare Insurance. Past medical history, appointments, medications, allergies reviewed. [...] Medication Sig sertraline (ZOLOFT) 50 mg tablet TAKE 2 TABLETS ONE TIME DAILY apixaban (ELIQUIS) 5 mg tab(s) Take 1 tablet by mouth two times a day. gabapentin (NEURONTIN) 300 mg capsule Take 1 capsule by mouth once daily for 180 days. gabapentin (NEURONTIN) 300 mg capsule Take 1 capsule by mouth daily at bedtime for 14 days. furosemide (LASIX) 20 mg tablet Take 1 tablet by mouth once daily for 7 days. vibegron (GEMTESA) 75 mg tablet Take 1 tablet by mouth once daily. losartan (COZAAR) 100 mg tablet Take 1 tablet by mouth once daily. (more content not included)... Normal [facility] 03-13-[address] [facility] Telephone ([facility]) -- TERRIE SAMANO ([id number]) 1935 F Date Time Provider Department 03/13/24 JORDAN LEVINE [facility] During your visit today, we recorded the following information about you: Sheila Salgado LPN 03/13/2024 2:16 PM Signed Pt calls to report she has an appt 03/23 and is asking if provider wants lab work done beforehand. Pt is requesting lab orders be faxed to James Delgado @ [phone]. Pt reports this would be helpful so pt would not have to go out to get labs. HUGO Andres Mark D, MD 03/13/2024 3:48 PM Signed Labs ordered; may fax as requested MD Reynold Douglass Rilee, MA 03/13/2024 4:10 PM Signed Call to pt and notified her that fasting labs have been ordered and faxed to the number she Provided. Pt verbalized understanding. Lyn Flaherty MA Allergies As of Date: 03/13/2024 Noted Allergy Reaction COUGH SYRUP (GUAIFENESIN) 07/30/2009 2 - Rash IODINE 07/30/2009 2 - Rash Date Reviewed: 12/31/2023 Reviewed by: Germaine Leo LPN - Fully Assessed Reason for Visit: Lab Orders [1688] Cmt: Primary Visit Diagnosis:MGUS (monoclonal gammopathy of unknown significance) [D47.2] Other Visit Diagnoses:Essential hypertension [I10] Mixed hyperlipidemia [E78.2] Order(s):COMPREHENSIVE METABOLIC PANEL [SQCMP] Order #: [id number] FUTURE LIPID PANEL BASIC [SQLIPB] Order #: [id number] FUTURE COMPLETE BLOOD COUNT [SQCBC] Order #: [id number] FUTURE Prescriptions as of 03/13/2024 - sertraline (ZOLOFT) 50 mg tablet TAKE 2 TABLETS ONE TIME DAILY - apixaban (ELIQUIS) 5 mg tab(s) Take 1 tablet by mouth two times a day. - gabapentin (NEURONTIN) 300 mg capsule Take 1 capsule by mouth once daily for 180 days. - gabapentin (NEURONTIN) 300 mg capsule Take 1 capsule by mouth daily at bedtime for 14 days. - furosemide (LASIX) 20 mg tablet Take 1 tablet by mouth once daily for 7 days. - vibegron (GEMTESA) 75 mg tablet Take 1 tablet by mouth once daily. - losartan (COZAAR) 100 mg tablet Take 1 tablet by mouth once daily. - dilTIAZem CD (CARDIZEM CD) 120 mg 24 hr capsule Take 1 capsule by mouth once daily. - pravastatin (PRAVACHOL) 20 mg tablet Take 1 tablet by mouth once daily. - acetaminophen (TYLENOL) 325 mg tablet Take 2 tablets by mouth every 6 hours as needed for pain. - carboxymethylcellulose sodium (REFRESH OPHTHALMIC) Use 1 [...] tablet daily. Problem List As Of Date 03/13/2024 Noted Resolved Calcaneal Spur [M77.30] 07/30/2009 Sprain [...] artery stenosis [I65.23] 09/20/2019 Mixed hyperlipidemia [E78.2] Urinary incontinence [R32] 09/21/2023 OAB (overactive bladder) [N32.81] 09/21/2023 Anxiety with depression [F41.8] 09/21/2023 Acute deep vein thrombosis (DVT) of proximal ve*11/16/2023 Nonrheumatic mitral valve stenosis [I34.2] 12/31/2023 Encounter Status:Closed by LYN FLAHERTY on 03/13/24 Normal [facility] 03-06-[address] [facility] TERRIE SAMANO ([id number]) 1935 F Date Time Provider Department 03/06/24 JORDAN LEVINE During your visit today, we recorded the following information about you: Lissa Boone 03/06/2024 9:40 AM Signed Terrie is calling Jordan Levine MD today with concern regarding Medication Gabapentin. She stated she has only one pill left. [facility] told her it will take 7 days at least to mail to her. Or she could pay $6.99 to have it rushed. She does not know if she can stop the medication and just wait or not. Asked patient if she wants a short term to local Pharmacy but she is asking to speak to the nurse for advice. Please call today. Patient has been identified by name and birthdate. Duration of symptoms: N/A Person calling: self Call patient at: on cell [phone] (home) [phone] (cell) Was an appointment scheduled: No Closing statement: Results or non-symptom based questions: Thank you for calling [facility], your call will be returned within the next business day. Lissa Berger [facility] Lyn Flaherty MA 03/06/2024 9:49 AM Signed Call to pt, who states that [facility] did not send her refill to her in time and she only has 1 pill left of Gabapentin 300 mg. They are currently processing this to send out, pt will have no refills left on rx, last Rx: 10/14/23 #90 w/1. Asking for new Rx to be sent to [facility], takes one nightly. Asking for short term 2 week supply to go to [facility] until receives Rx from [facility]. Noted request for Eliquis, currently this is already in. Update pt once Rx has been sent to [facility], so she can pick out hand. ALVARADO Kaur Jesse, LIGHTNING ROD INSTALLER.SPA TECHNICIAN 03/06/2024 9:53 AM Signed Please let her know that we have sent short term and watermaster medication. The following approved medication requests have been transmitted electronically. Requested Prescriptions Signed Prescriptions Disp Refills gabapentin (NEURONTIN) 300 mg capsule 90 capsule 1 Sig: Take 1 capsule by mouth once daily for 180 days. Authorizing Provider: HARRY LAURA gabapentin (NEURONTIN) 300 mg capsule 14 capsule 0 Sig: Take 1 capsule by mouth daily at bedtime for 14 days. Authorizing Provider: HARRY LAURA APRN.Valeria Owens RN 03/06/2024 10:17 AM Signed Pt called and is notified of providers message. Pt voices understanding. Valeria Vanegas RN Allergies As of Date: 03/06/2024 Noted Allergy Reaction COUGH SYRUP (GUAIFENESIN) 07/30/2009 2 - Rash IODINE 07/30/2009 2 - Rash Date Reviewed: 12/31/2023 Reviewed by: Germaine Leo LPN - Fully Assessed Reason for Visit: Medication Problem [65] Cmt: Gabapentin Visit Diagnosis:Lumbar radiculopathy [M54.16] Order(s):gabapentin (NEURONTIN) 300 mg capsuleTake 1 capsule by mouth once daily for 180 days.Disp: 90 capsuleRfl: 1 gabapentin (NEURONTIN) 300 mg capsuleTake 1 capsule by mouth daily at bedtime for 14 days.Disp: 14 capsuleRfl: 0 Prescriptions as of 03/06/2024 - apixaban (ELIQUIS) 5 mg tab(s) Take 1 tablet by mouth two times a day. - gabapentin (NEURONTIN) 300 mg capsule Take 1 capsule by mouth once daily for 180 days. - gabapentin (NEURONTIN) 300 mg capsule Take 1 capsule by mouth daily at bedtime for 14 days. - furosemide (LASIX) 20 mg tablet Take 1 tablet by mouth once daily for 7 days. - sertraline (ZOLOFT) 50 mg tablet Take 2 tablets by mouth once daily. - vibegron (GEMTESA) 75 mg tablet Take 1 tablet by mouth once daily. - losartan (COZAAR) 100 mg tablet Take 1 tablet by mouth once daily. - dilTIAZem CD (CARDIZEM CD) 120 mg 24 hr capsule Take 1 capsule by mouth once daily. - pravastatin (PRAVACHOL) 20 mg tablet Take 1 tablet by mouth once daily. - acetaminophen (TYLENOL) 325 mg tablet Take 2 tablets by mouth every 6 hours as needed for pain. - carboxymethylcellulose sodium (REFRESH OPHTHALMIC) Use 1 [...] tablet daily. Problem List As Of Date 03/06/2024 Noted Resolved Calcaneal Spur [M77.30] 07/30/2009 Sprain and Strain of Unspecified Site of Foot [*07/30/2009 Gait abnormality [R26.9] 08/12/2013 Back pain [M54.9] 08/12/2013 Osteoarthritis [M19.90] 08/12/2013 Lumbar radiculopathy [M54.16] 08/16/2013 MGUS (monoclonal gammopathy of unknown signific*11/24/2018 Macular degeneration [H35.30] 05/25/2019 Chronic back pain [M54.9, G89.29] Osteopenia [M85.80] 07/20/2019 Primary hyperparathyroidism (HCC) [E21.0] 07/20/2019 Hypercalcemia [E83.52] 07/20/2019 Essential hyper (more content not included)... [facility] TERRIE SAMANO ([id number]) 1935 F Date Time Provider Department 02/17/24 JORDAN LEVINE [facility] During your visit today, we recorded the following information about you: Flaherty, Lyn, MA 02/17/2024 2:28 PM Signed Office received fax from James Delgado regarding pt and a fall report. Note: Resident rang call light at 10:00 am to alert staff she had fallen. Upon entering room, resident was sitting on her bottom in the middle of her living room floor, legs outstretched in front of her, walker in reach. Resident stated that she was picking up things off the floor so the sheet cutting operator could run the vacuum. Stated she thinks she hit the back of her head on the floor but isn't 100%. Denies any other injury. Vitals completed. Was assisted to stand x 3 assist with FWB. No bumps/banks/discolorations noted to skin. No bumps/redness to head. Ambulated around room without c/o difficulty or pain. Encouraged to call for help when needing to pick out hand things up off the floor, expressed understanding. Neuro check initiated. No needs/wants voiced, will continue to monitor. Sister Mari notified of fall. Rachelle Mahmood LPN. ALVARADO Kaur Mark D, MD 02/17/2024 4:47 PM Signed Noted Jordan Levine MD Allergies As of Date: 02/17/2024 Noted Allergy Reaction COUGH SYRUP (GUAIFENESIN) 07/30/2009 2 - Rash IODINE 07/30/2009 2 - Rash Date Reviewed: 12/31/2023 Reviewed by: Germaine Leo LPN - Fully Assessed Reason for Visit: Electronic Communication [890] Cmt: [facility] Prescriptions as of 02/17/2024 - apixaban (ELIQUIS) 5 mg tab(s) Take 1 tablet by mouth two times a day. Patient should start on December 16, 2023. - furosemide (LASIX) 20 mg tablet Take 1 tablet by mouth once daily for 7 days. - sertraline (ZOLOFT) 50 mg tablet Take 2 tablets by mouth once daily. - gabapentin (NEURONTIN) 300 mg capsule Take 1 capsule by mouth once daily for 180 days. - vibegron (GEMTESA) 75 mg tablet Take 1 tablet by mouth once daily. - losartan (COZAAR) 100 mg tablet Take 1 tablet by mouth once daily. - dilTIAZem CD (CARDIZEM CD) 120 mg 24 hr capsule Take 1 capsule by mouth once daily. - pravastatin (PRAVACHOL) 20 mg tablet Take 1 tablet by mouth once daily. - acetaminophen (TYLENOL) 325 mg tablet Take 2 tablets by mouth every 6 hours as needed for pain. - carboxymethylcellulose sodium (REFRESH OPHTHALMIC) Use 1 [...] tablet daily. Problem List As Of Date 02/17/2024 Noted Resolved Calcaneal Spur [M77.30] 07/30/2009 Sprain [...] artery stenosis [I65.23] 09/20/2019 Mixed hyperlipidemia [E78.2] Urinary incontinence [R32] 09/21/2023 OAB (overactive bladder) [N32.81] 09/21/2023 Anxiety with depression [F41.8] 09/21/2023 Acute deep vein thrombosis (DVT) of proximal ve*11/16/2023 Nonrheumatic mitral valve stenosis [I34.2] 12/31/2023 Encounter Status:Closed by JODRAN LEVINE on 02/17/24 [facility] CNOVon 12-31-2023 CNOV Office Visit ([facility] ) -- TERRIE SAMANO ([id number]) 1935 F Date Time Provider Department 12/31/23 2:00 PM HARRY LAURA During your visit today, we recorded the following information about you: Pulse Respiration Blood pressure Weight 87/minute 16/minute 120/70 77.9 kg Harry Laura APRN.SPA TECHNICIAN 12/31/2023 2:20 PM Signed Chief Complaint Patient presents with: Follow Up: DVT HPI Terrie Samano is a 88 year old female who presents here today for Above Complaints. follow up for DVT Patient is here for DVT follow-up. On November 16, 2023, patient presented to my office with complaints of right leg cellulitis, swelling, pain. An ultrasound revealed a deep vein thrombosis present in the right tibioperoneal trunk. She was started on Eliquis and furosemide that day. She returned 3 days later for reevaluation. At that day she was doing okay. No chest pain. She is using AURELIO hose at this time. No blood in her stool or urine. She had a bloody nose a few times, was able to stop it as normal. Taking medication as prescribed. Had continued erythema, tenderness of the right calf. Other than being less mobile, there were no precipitating factors such as injury or surgery that preceded this finding of a DVT. During these visits, a heart murmur was auscultated. Echocardiogram was ordered and revealed mild mitral valve stenosis with +1 tricuspid valve regurgitation. Past medical history, appointments, medications, allergies reviewed. EXAM: BP 120/70 Pulse 87 Resp 16 Wt 77.9 kg (171 lb 12.8 oz) SpO2 96% BMI 32.46 kg/m? General Appearance: Well appearing, alert, in no acute distress, well-hydrated, well nourished.. Lungs: Lungs clear to auscultation. No wheezing, rhonchi, rales.. Heart: Positive findings: murmur: 2/6 mid systolic low pitched soft murmur URSB and ULSB . Extremities: Pulses: 2+, Right calf is enlarged, measuring 16.5 inches ASSESSMENT/PLAN: 1. Acute deep vein thrombosis (DVT) of proximal vein of right lower extremity (HCC) - ICD9: 453.41, ICD10: I82.4Y1 (primary diagnosis) - Improvement in swelling. Continue with Eliquis as prescribed. Likely will need to be on this medication for 3 to 6 months. Has follow-up with Dr. Levine in February. Will continue to at least this time. 2. Nonrheumatic mitral valve stenosis - ICD9: 424.0, ICD10: I34.2 - Stable Harry Laura APRN.SPA TECHNICIAN This note was partly generated using [employer] voice recognition dictation and may contain some misspelled or inaccurate words missed on review. Allergies As of Date: 12/31/2023 Noted Allergy Reaction COUGH SYRUP (GUAIFENESIN) 07/30/2009 2 - Rash IODINE 07/30/2009 2 - Rash Date Reviewed: 12/31/2023 Reviewed by: Germaine Leo LPN - Fully Assessed Reason for Visit: Follow Up [171] Cmt: DVT Primary Visit Diagnosis:Acute deep vein thrombosis (DVT) of proximal vein of right lower extremity (HCC) [I82.4Y1] Other Visit Diagnosis:Nonrheumatic mitral valve stenosis [I34.2] Prescriptions as of 12/31/2023 - apixaban (ELIQUIS) 5 mg tab(s) Take 1 tablet by mouth two times a day. Patient should start on December 16, 2023. - furosemide (LASIX) 20 mg tablet Take 1 tablet by mouth once daily for 7 days. - sertraline (ZOLOFT) 50 mg tablet Take 2 tablets by mouth once daily. - gabapentin (NEURONTIN) 300 mg capsule Take 1 capsule by mouth once daily for 180 days. - vibegron (GEMTESA) 75 mg tablet Take 1 tablet by mouth once daily. - losartan (COZAAR) 100 mg tablet Take 1 tablet by mouth once daily. - dilTIAZem CD (CARDIZEM CD) 120 mg 24 hr capsule Take 1 capsule by mouth once daily. - pravastatin (PRAVACHOL) 20 mg tablet Take 1 tablet by mouth once daily. - acetaminophen (TYLENOL) 325 mg tablet Take 2 tablets by mouth every 6 hours as needed for pain. - carboxymethylcellulose sodium (REFRESH OPHTHALMIC) Use 1 [...] tablet daily. Problem List As Of Date 12/31/2023 Noted Resolved Calcaneal Spur [M77.30] 07/30/2009 Sprain [...] [I10] 09/13/2019 Left ventricular hypertrophy [I51.7] 09/20/2019 Bila (more content not included)... Normal [facility] Chris 12-21-2023 [facility] Telephone ([facility]) -- JAZMYNE,TERRIE A ([id number]) 1935 F Date Time Provider Department 12/21/23 JORDAN LEVINE During your visit today, we recorded the following information about you: Citlalli Arana Ma 12/21/2023 11:40 AM Signed Received fax from [facility] asking if pt is ok to stop Eliquis for 2 days prior to procedure. Fax back at [phone]. Jordan Woodward Ma, MD 12/21/2023 3:34 PM Signed Form done MD Kevin Douglass Ma, Kathryn 12/21/2023 3:41 PM Signed Ok to hold for 2 days per PCP. This was responded to via fax, form faxed. Citlalli Arana Ma Allergies As of Date: 12/21/2023 Noted Allergy Reaction COUGH SYRUP (GUAIFENESIN) 07/30/2009 2 - Rash IODINE 07/30/2009 2 - Rash Date Reviewed: 11/19/2023 Reviewed by: Odessa Blair MA - Fully Assessed Reason for Visit: Forms [913] Cmt: Request to hold Blood Thinner Prescriptions as of 12/21/2023 - apixaban (ELIQUIS) 5 mg tab(s) Take 1 tablet by mouth two times a day. Patient should start on December 16, 2023. - furosemide (LASIX) 20 mg tablet Take 1 tablet by mouth once daily for 7 days. - sertraline (ZOLOFT) 50 mg tablet Take 2 tablets by mouth once daily. - gabapentin (NEURONTIN) 300 mg capsule Take 1 capsule by mouth once daily for 180 days. - vibegron (GEMTESA) 75 mg tablet Take 1 tablet by mouth once daily. - losartan (COZAAR) 100 mg tablet Take 1 tablet by mouth once daily. - dilTIAZem CD (CARDIZEM CD) 120 mg 24 hr capsule Take 1 capsule by mouth once daily. - pravastatin (PRAVACHOL) 20 mg tablet Take 1 tablet by mouth once daily. - acetaminophen (TYLENOL) 325 mg tablet Take 2 tablets by mouth every 6 hours as needed for pain. - carboxymethylcellulose sodium (REFRESH OPHTHALMIC) Use 1 [...] tablet daily. Problem List As Of Date 12/21/2023 Noted Resolved Calcaneal Spur [M77.30] 07/30/2009 Sprain [...] artery stenosis [I65.23] 09/20/2019 Mixed hyperlipidemia [E78.2] Urinary incontinence [R32] 09/21/2023 OAB (overactive bladder) [N32.81] 09/21/2023 Anxiety with depression [F41.8] 09/21/2023 Acute deep vein thrombosis (DVT) of proximal ve*11/16/2023 Encounter Status:Closed by CITLALLI ARANA MA on 12/21/23 [facility] Chris 11-22-2023 GRAYSON[facility] Telephone ([facility]) -- TERRIE SAMANO ([id number]) 1935 F Date Time Provider Department 11/22/23 HARRY LAURA During your visit today, we recorded the following information about you: Harry Laura APRN.GRAYSON 11/22/2023 6:57 AM Signed Please let the patient know that her echocardiogram showed findings consistent with mild valvular disease. No significant change from echocardiogram in 2019. This valve disease likely is causing her murmur. Nothing further needed at this time. In addition, she is supposed to see me in 6 weeks for follow-up. This would place her around the first week of December. Scheduling made an error and scheduled her for December 03 which would be a 2-week follow-up. Please cancel December 03 appointment in [facility] scheduled for first week of December. Harry Laura APRN.Odessa Ramirez MA 11/22/2023 8:36 AM Signed Left a message on patient's answering machine change of OV to 12/31/23 at 2 PM. Advised patient to call back to receive results. Please read below and advise AND remind of new appt time/date. ALVARADO Tanner Laurie Lynn, LPN 11/25/2023 3:39 PM Signed Spoke with pt and information listed below given. Pt verbalizes understanding. Apt was changed to December. Lana Sommer LPN Allergies As of Date: 11/22/2023 Noted Allergy Reaction COUGH SYRUP (GUAIFENESIN) 07/30/2009 2 - Rash IODINE 07/30/2009 2 - Rash Date Reviewed: 11/19/2023 Reviewed by: Odessa Blair MA - Fully Assessed Reason for Visit: Results [95] Prescriptions as of 11/25/2023 - apixaban (ELIQUIS) 5 mg tab(s) Take 1 tablet by mouth two times a day. Patient should start on December 16, 2023. - cephALEXin (KEFLEX) 500 mg capsule Take 1 capsule by mouth three times a day for 10 days. - furosemide (LASIX) 20 mg tablet Take 1 tablet by mouth once daily for 7 days. - apixaban (ELIQUIS DVT-PE TREAT 30D START) 5 mg (74 tabs) Take 2 tablets (10 mg) by mouth twice daily for 7 days. Then take 1 tablet (5 mg) by mouth twice daily for 23 days - sertraline (ZOLOFT) 50 mg tablet Take 2 tablets by mouth once daily. - gabapentin (NEURONTIN) 300 mg capsule Take 1 capsule by mouth once daily for 180 days. - vibegron (GEMTESA) 75 mg tablet Take 1 tablet by mouth once daily. - losartan (COZAAR) 100 mg tablet Take 1 tablet by mouth once daily. - dilTIAZem CD (CARDIZEM CD) 120 mg 24 hr capsule Take 1 capsule by mouth once daily. - pravastatin (PRAVACHOL) 20 mg tablet Take 1 tablet by mouth once daily. - acetaminophen (TYLENOL) 325 mg tablet Take 2 tablets by mouth every 6 hours as needed for pain. - carboxymethylcellulose sodium (REFRESH OPHTHALMIC) Use 1 [...] tablet daily. Problem List As Of Date 11/22/2023 Noted Resolved Calcaneal Spur [M77.30] 07/30/2009 Sprain [...] artery stenosis [I65.23] 09/20/2019 Mixed hyperlipidemia [E78.2] Urinary incontinence [R32] 09/21/2023 OAB (overactive bladder) [N32.81] 09/21/2023 Anxiety with depression [F41.8] 09/21/2023 Acute deep vein thrombosis (DVT) of proximal ve*11/16/2023 Encounter Status:Closed by LANA SOMMER on 11/25/23 [facility] CNOVon 11-19-2023 CNOV Office Visit ([facility] ) -- TERRIE SAMANO ([id number]) 1935 F Date Time Provider Department 11/19/23 1:20 PM HARRY LAURA During your visit today, we recorded the following information about you: Temperature Pulse Respiration Blood pressure 99.8 degrees 79/minute 20/minute 134/64 Weight 80 kg Harry Laura APRN.SPA TECHNICIAN 11/19/2023 1:57 PM Signed Chief Complaint Patient presents with: Outpatient Dvt Tx HPI Terrie Ricardo Jazmyne is a 88 year old female who presents here today for Above Complaints. follow up for DVT. Patient is here for DVT follow-up. Patient was in my office 3 days ago for leg swelling. Her right lower calf has been swollen for 3 to 4 days prior to this visit. Ultrasound at [facility] demonstrated a DVT present in the right tibioperoneal trunk. She was started on Eliquis via starter pack. She was also started on Keflex and furosemide for potential cellulitis that she had a low-grade fever. She comes today with continued swelling of the right calf. She has been taking her Eliquis as prescribed. Nursing staff at her assisted living has been assisting with medication distribution. She has a low-grade fever today again. She also has some pain in the right calf. Denies any shortness of breath, chest pain. At our visit on Wednesday, I did auscultate a heart murmur on the left upper sternal border. Last echocardiogram was 2018. Admits that she could be more ambulatory. Has difficulty. Has history of frequent falls. Uses a rollator for ambulation. No recent surgeries or travel. Past medical history, appointments, medications, allergies reviewed. EXAM: BP 134/64 Pulse 79 Temp 37.7 ?C (99.8 ?F) (Left Tympanic) Resp 20 Wt 80 kg (176 lb 6.4 oz) SpO2 93% BMI 33.33 kg/m? General Appearance: Well appearing, alert, in no acute distress, well-hydrated, well nourished.. Lungs: Lungs clear to auscultation. No wheezing, rhonchi, rales.. Heart: RRR with 2/6 soft midsystolic murmur at LUSB Extremities: Right calf has erythema in the anterior portion of the tib-fib, some tenderness in the posterior calf. Some warmth around the erythema. Right calf is swollen, enlargement compared to the left calf. ASSESSMENT/PLAN: 1. Acute deep vein thrombosis (DVT) of proximal vein of right lower extremity (HCC) - ICD9: 453.41, ICD10: I82.4Y1 (primary diagnosis) -Continue Eliquis as prescribed. Likely will need to be on for 3 to 6 months. We will see her back in 6 weeks to reevaluate progress. - APIXABAN 5 MG TABLET 2. Cellulitis of leg, right - ICD9: 682.6, ICD10: L03.115 -Finish Keflex and Lasix as prescribed. Leg does not look more erythematous or warm than 3 days ago. 3. Heart murmur - ICD9: 785.2, ICD10: R01.1 -New finding on exam. Get updated echocardiogram. Discussed potential etiologies. - ECHO - PERFLUTREN LIPID MICROSPHERES 1.1 MG/ML INJECTION IN NS 10 ML - SODIUM CHLORIDE 0.9 % (FLUSH) INJECTION SYRINGE Harry Laura APRN.SPA TECHNICIAN RTO in 6 weeks, sooner if needed. This note was partly generated using [employer] voice recognition dictation and may contain some misspelled or inaccurate words missed on review. Harry Laura APRN.GRAYSON 11/19/2023 1:49 PM Signed Finish Keflex and Lasix prescription Schedule echocardiogram for heart murmur Continue Eliquis. You will take for the next 3 to 6 months. Return in 6 weeks for follow up. Harry Laura APRN.GRAYSON Allergies As of Date: 11/19/2023 Noted Allergy Reaction COUGH SYRUP (GUAIFENESIN) 07/30/2009 2 - Rash IODINE 07/30/2009 2 - Rash Date Reviewed: 11/19/2023 Reviewed by: Odessa Blair MA - Fully Assessed Reason for Visit: Outpatient Dvt Tx [147] Primary Visit Diagnosis:Acute deep vein thrombosis (DVT) of proximal vein of right lower extremity (HCC) [I82.4Y1] Other Visit Diagnoses:Cellulitis of leg, right [L03.115] Heart murmur [R01.1] Order(s):ECHO [295040] Order #: [id number]: 1 FUTURE [START ON 12/16/2023] apixaban (ELIQUIS) 5 mg tab(s)Take 1 tablet by mouth two times a day. Patient should start on December 16, 2023.Disp: 60 tabletRfl: 3 Prescriptions as of 11/19/2023 - apixaban (ELIQUIS) 5 mg tab(s) Take 1 tablet by mouth two times a day. Patient should start on December 16, 2023. - cephALEXin (KEFLEX) 500 mg capsule Take 1 capsule by mouth three times a day for 10 days. - furosemide (LASIX) 20 mg tablet Take 1 tablet by mouth once daily for 7 days. - apixaban (ELIQUIS DVT-PE TREAT 30D START) 5 mg (74 tabs) Take 2 tablets (10 mg) by mouth twice daily for 7 days. Then take 1 tablet (5 mg) by mouth twice daily for 23 days - sertraline (ZOLOFT) 50 mg tablet Take 2 tablets by mouth once daily. - gabapentin (NEURONTIN) 300 mg capsule Take 1 capsule by mouth once daily for 180 days. - vibegron (GEMTESA) 75 mg tablet Take 1 tablet by mouth once daily. - losartan (COZAAR) 100 mg tablet Take 1 (more content not included)... [facility] ECHOon 11-19-2023 Echocardiography Echocardiography Rep ort: Transthoracic Echo Count Includes [facility] Date of service: 11/19/2023 2:59:56 PM SUPPORT CONSULTANT Ordering physician: HARRY LAURA Indication: Cardiac murmur Technologist: Isi Orozco [facility] Interpreting physician: Shanae Guan MD PATIENT: Name: MS. TERRIE SAMANO : 1935 Age: 88 years Gender: F History of hypertension and syncope. Primary rhythm: sinus. Height: 154.90 cm BSA: 1.86 m Weight: 80.02 kg BMI: 33.3 kg/m Heart rate 84 bpm Blood pressure 134/64 mmHg Color Doppler was utilized to interrogate the cardiac valves assessed and spectral Doppler was utilized to determine the flow velocities and pressure gradients reported in this exam. Myocardial strain analysis was performed in this exam to aid in the assessment of cardiac function. MEASUREMENTS: Value Indexed Normal Max aortic dimension 3.4 cm Ao < 3.8 Left atrial volume 83 ml (biplane A-L) 45 ml/m Ye <= 34 LV ID (diastole) 4.0 cm (2D) 2.13 cm/m LV ID (systole) 2.8 cm (2D) 1.49 cm/m IVS, leaflet tips 1.6 cm (2D) Posterior wall thickness 1.4 cm (2D) Left ventricular mass 233 g (2D) 126 g/m Global peak long strain -16.0 % LV stroke volume 40 ml (2D biplane) LV end diastolic volume 70 ml (2D biplane) 38.0 ml/m 29<=EDVi<62 LV end systolic volume 31 ml (2D biplane) 16.5 ml/m Ejection Fraction 56 % (2D biplane) EF > 54 FINDINGS: LEFT VENTRICLE The left ventricle is normal in size. There is moderate concentric left ventricular hypertrophy. Left ventricular systolic function is normal. Global LV myocardial strain is normal. Grade II left ventricular diastolic dysfunction. Mitral annular lateral E/e': 29.1. Mitral annular septal E/e': 29.1. Wall Motion: All scored segments are normal. RIGHT VENTRICLE The right ventricle is normal in size. Right ventricular systolic function is normal. RV systolic tissue Doppler velocity is 16.0 cm/s. Estimated right ventricular systolic pressure is likely underestimated due to a weak or incomplete tricuspid regurgitation signal and is, at least, 36 mmHg consistent with mild pulmonary hypertension. Estimated right atrial pressure is 3 mmHg based on IVC assessment. LEFT ATRIUM The left atrial cavity is moderately dilated. Pulmonary Veins: The pulmonary venous pattern showed normal systolic flow. RIGHT ATRIUM The right atrial cavity is normal in size. Inferior Vena Cava: The inferior vena cava appears normal measuring 1.3 cm. The vessel decreases greater than 50 percent with inspiration. MITRAL VALVE The mitral valve leaflets are structurally normal. There is moderate mitral annular calcification observed anterior and posterior. There is mild mitral stenosis. There is trace mitral valve regurgitation. There is mild thickening. The pressure half time is 100 msec. The peak mitral E/A ratio is 0.81. The average mitral E/e' ratio is 29.1. The mitral flow deceleration time is 345 msec. TRICUSPID VALVE The tricuspid valve leaflets are structurally normal. There is mild (1+) tricuspid valve regurgitation. AORTIC VALVE The aortic valve cusps are structurally normal. There is no aortic valve stenosis. There is no aortic valve regurgitation. Tricuspid aortic valve. The peak gradient is 15 mmHg (peak velocity = 194.0 cm/s). PULMONIC VALVE The pulmonic valve was not seen or not interrogated. There is no pulmonic stenosis. There is trace pulmonic valve regurgitation. AORTA The visualized aorta is normal in size. Measurements - Mid ascending aorta 3.4 cm. PERICARDIUM There is no pericardial effusion. There is an epicardial fat pad. CONCLUSIONS: - Exam indication: Cardiac murmur - The left ventricle is normal in size. There is moderate concentric left ventricular hypertrophy. Left ventricular systolic function is normal. EF = 56 5% (2D biplane). Grade II left ventricular diastolic dysfunction. - The right ventricle is normal in size. Right ventricular systolic function is normal. - The left atrial cavity is moderately dilated. - Mild mitral stenosis. - Mild 1+ tricuspid regurgitation. - There is mild NEFTALI at rest with an LVOT gradient of 22 mmHg and trivial-1+ MR. No significant change with valsalva. - Exam was compared with the prior echocardiographic exam performed on 09/19/2019, no significant change. * * * Final * * * [employer] Image : [id number] [facility] CNOVon 11-16-2023 CNOV Office Visit (FAMPWS ) -- TERRIE SAMANO ([id number]) 1935 F Date Time Provider Department 11/16/23 2:00 PM HARRY LAURA During your visit today, we recorded the following information about you: Temperature Pulse Respiration Blood pressure 99.9 degrees 84/minute 22/minute 138/84 Weight 80.3 kg Harry Laura APRN.SPA TECHNICIAN 11/16/2023 3:28 PM Addendum Chief Complaint Patient presents with: right leg HPI Terrie Samano is a 88 year old female who presents here today for Above Complaints Patient lives at [facility]. Patient is here for right leg edema. Other symptoms include weeping of fluids from this area yesterday. Leg swelling has been present for 3 to 4 days per patient. Some calf tenderness. She has been using her knee-high compression stockings daily. She is borderline febrile today in the office. She denies any chest pain, shortness of breath. No dizziness. Past medical history, appointments, medications, allergies reviewed. EXAM: BP 138/84 (BP Site: Left Arm, BP Position: Sitting, BP Cuff Size: Large Adult) Pulse 84 Temp 37.7 ?C (99.9 ?F) Resp 22 Wt 80.3 kg (177 lb) BMI 33.44 kg/m? General Appearance: Well appearing, alert, in no acute distress, well-hydrated, well nourished.. Lungs: Lungs clear to auscultation. No wheezing, rhonchi, rales.. Heart: Positive findings: murmur: 2/6 mid systolic low pitched soft murmur LLSB . Extremities: Right LE has warmth, erythema and tenderness in the calf, No seeping. Measuring 18.5 inches. Left LE measuring 14 inches ASSESSMENT/PLAN: 1. Cellulitis of leg, right - ICD9: 682.6, ICD10: L03.115 (primary diagnosis) - Begin treatment with Cephalaxin (Keflex) - Follow up for recheck in three days - CEPHALEXIN 500 MG CAPSULE 2. Right leg swelling - ICD9: 729.81, ICD10: M79.89 - Rule out DVT - US LEG VEIN DVT [facility]- No appointments at [facility]. Sent patient to [facility] as they had openings. Order faxed. - FUROSEMIDE 20 MG TABLET 3. Heart murmur - ICD9: 785.2, ICD10: R01.1 - new finding. Had echo in 2019. We can discuss further at follow up visit, likely will re-order echo. Harry Laura APRN.SPA TECHNICIAN RTO in 3 days This note was partly generated using [employer] voice recognition dictation and may contain some misspelled or inaccurate words missed on review. Allergies As of Date: 11/16/2023 Noted Allergy Reaction COUGH SYRUP (GUAIFENESIN) 07/30/2009 2 - Rash IODINE 07/30/2009 2 - Rash Date Reviewed: 11/16/2023 Reviewed by: Harry Laura APRN.SPA TECHNICIAN - Fully Assessed Reason for Visit: right leg [Other] Primary Visit Diagnosis:Cellulitis of leg, right [L03.115] Other Visit Diagnoses:Right leg swelling [M79.89] Heart murmur [R01.1] Order(s):cephALEXin (KEFLEX) 500 mg capsuleTake 1 capsule by mouth three times a day for 10 days.Disp: 30 capsuleRfl: 0 US LEG VEIN DVT [facility]L [facility] [[id number]] Order #: [id number] FUTURE furosemide (LASIX) 20 mg tabletTake 1 tablet by mouth once daily for 7 days.Disp: 7 tabletRfl: 0 Prescriptions as of 11/16/2023 - cephALEXin (KEFLEX) 500 mg capsule Take 1 capsule by mouth three times a day for 10 days. - furosemide (LASIX) 20 mg tablet Take 1 tablet by mouth once daily for 7 days. - sertraline (ZOLOFT) 50 mg tablet Take 2 tablets by mouth once daily. - gabapentin (NEURONTIN) 300 mg capsule Take 1 capsule by mouth once daily for 180 days. - vibegron (GEMTESA) 75 mg tablet Take 1 tablet by mouth once daily. - meloxicam (MOBIC) 15 mg tablet Take 1 tablet by mouth once daily. - losartan (COZAAR) 100 mg tablet Take 1 tablet by mouth once daily. - dilTIAZem CD (CARDIZEM CD) 120 mg 24 hr capsule Take 1 capsule by mouth once daily. - pravastatin (PRAVACHOL) 20 mg tablet Take 1 tablet by mouth once daily. - acetaminophen (TYLENOL) 325 mg tablet Take 2 tablets by mouth every 6 hours as needed for pain. - carboxymethylcellulose sodium (REFRESH OPHTHALMIC) Use 1 [...] tablet daily. 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 [facility] TERRIE SAMANO ([id number]) 1935 F Date Time Provider Department 11/16/23 HARRY LAURA During your visit today, we recorded the following information about you: Harry Laura APRN.CNP 11/16/2023 3:45 PM Signed [facility] vascular lab calling. Vascular ultrasound showing positive for DVT. Prescribed Eliquis starter pack for DVT. Sent to [facility] in [place]. Vascular prosthetics lab technician, to him, was given instruction to have patient start Eliquis today. Have patient continue with plan to follow-up with me on Wednesday as scheduled please have patient start this today. Can we please reach out to patient to ensure that she got this message and also She also needs to stop her meloxicam as this increases risk of bleeding. The following approved medication requests have been transmitted electronically. Requested Prescriptions Signed Prescriptions Disp Refills apixaban (ELIQUIS DVT-PE TREAT 30D START) 5 mg (74 tabs) 74 tablet 0 Sig: Take 2 tablets (10 mg) by mouth twice daily for 7 days. Then take 1 tablet (5 mg) by mouth twice daily for 23 days Authorizing Provider: HARRY LAURA apixaban (ELIQUIS) 5 mg tab(s) 60 tablet 0 Sig: Take 1 tablet by mouth two times a day. Patient should start on December 16, 2023. Authorizing Provider: HARRY LAURA APRN.CNP Rowland Ma, Kathryn 11/16/2023 3:49 PM Signed Message left for pt to call back for results. Lyn Burnett MA, Ma 11/16/2023 3:59 PM Signed See note below from Provider. ALVARADO Adam tried calling pt and LM. Make sure pt received message from Provider's office through Tech at [facility]. Odessa Richmond Ma, MA 11/18/2023 3:52 PM Signed Spoke to patient. At time of US tech had notified patient that there was a clot. Patient picked up all 3 medications. Nurse at [facility] started patient on Eliquis Wednesday evening with first 2 tablets. Patient stopped Meloxicam as well. Patient states normally she does her own meds but d/t to instructions of Eliquis starter pack to make sure the right doses are given the nurse would administer medication. Patient questioned if okay to continue ASA advised ASA is okay to take per PCP. Patient confirmed appointment with Harry Laura 11/19 a@ 1:20 PM. Odessa Blair MA Allergies As of Date: 11/16/2023 Noted Allergy Reaction COUGH SYRUP (GUAIFENESIN) 07/30/2009 2 - Rash IODINE 07/30/2009 2 - Rash Date Reviewed: 11/16/2023 Reviewed by: Harry Laura APRN.SPA TECHNICIAN - Fully Assessed Reason for Visit: Results [95] Primary Visit Diagnosis:Acute deep vein thrombosis (DVT) of proximal vein of right lower extremity (HCC) [I82.4Y1] Order(s):apixaban (ELIQUIS DVT-PE TREAT 30D START) 5 mg (74 tabs)Take 2 tablets (10 mg) by mouth twice daily for 7 days. Then take 1 tablet (5 mg) by mouth twice daily for 23 daysDisp: 74 tabletRfl: 0 [START ON 12/16/2023] apixaban (ELIQUIS) 5 mg tab(s)Take 1 tablet by mouth two times a day. Patient should start on December 16, 2023.Disp: 60 tabletRfl: 0 Prescriptions as of 11/18/2023 - cephALEXin (KEFLEX) 500 mg capsule Take 1 capsule by mouth three times a day for 10 days. - furosemide (LASIX) 20 mg tablet Take 1 tablet by mouth once daily for 7 days. - apixaban (ELIQUIS DVT-PE TREAT 30D START) 5 mg (74 tabs) Take 2 tablets (10 mg) by mouth twice daily for 7 days. Then take 1 tablet (5 mg) by mouth twice daily for 23 days - apixaban (ELIQUIS) 5 mg tab(s) Take 1 tablet by mouth two times a day. Patient should start on December 16, 2023. - sertraline (ZOLOFT) 50 mg tablet Take 2 tablets by mouth once daily. - gabapentin (NEURONTIN) 300 mg capsule Take 1 capsule by mouth once daily for 180 days. - vibegron (GEMTESA) 75 mg tablet Take 1 tablet by mouth once daily. - losartan (COZAAR) 100 mg tablet Take 1 tablet by mouth once daily. - dilTIAZem CD (CARDIZEM CD) 120 mg 24 hr capsule Take 1 capsule by mouth once daily. - pravastatin (PRAVACHOL) 20 mg tablet Take 1 tablet by mouth once daily. - acetaminophen (TYLENOL) 325 mg tablet Take 2 tablets by mouth every 6 hours as needed for pain. - carboxymethylcellulose sodium (REFRESH OPHTHALMIC) Use 1 [...] tablet daily. Problem List As Of Date 11/16/2023 Noted Resolved Calcaneal Spur [M77.30] 07/30/2009 Sprain and Strain of Unspecified Site of Foot [*07/30/2009 Gait abnormality [R26.9] 08/12/2013 Back pain [M54.9] 08/12/2013 Osteoarthritis [M19.90] 08/12/2013 Lumbar radiculopathy [M54.16] 08/16/2013 MGUS (monoclonal gammopat (more content not included)... Normal [facility] Chris 10-14-[address] [facility] TERRIE SAMANO ([id number]) 1935 F Date Time Provider Department 10/14/23 JORDAN LEVINE FAMPWS During your visit today, we recorded the following information about you: Pat Vidal 10/14/2023 3:41 PM Signed Patient requesting nystatin (MYCOSTATIN) cream which is an medication. Please send medication to [facility]. Jordan Levine MD 10/14/2023 4:59 PM Signed OK to refill as ordered Jordan Levine MD Allergies As of Date: 10/14/2023 Noted Allergy Reaction COUGH SYRUP (GUAIFENESIN) 07/30/2009 2 - Rash IODINE 07/30/2009 2 - Rash Date Reviewed: 09/21/2023 Reviewed by: Citlalli Arana Ma - Fully Assessed Reason for Visit: requesting medication [Other] Visit Diagnosis:Yeast dermatitis [B37.2] Order(s):nystatin (MYCOSTATIN) creamApply to affected area two times a day for 14 days.Disp: 30 gRfl: 2 Prescriptions as of 10/14/2023 - sertraline (ZOLOFT) 50 mg tablet Take 2 tablets by mouth once daily. - gabapentin (NEURONTIN) 300 mg capsule Take 1 capsule by mouth once daily for 180 days. - nystatin (MYCOSTATIN) cream Apply to affected area two times a day for 14 days. - vibegron (GEMTESA) 75 mg tablet Take 1 tablet by mouth once daily. - meloxicam (MOBIC) 15 mg tablet Take 1 tablet by mouth once daily. - losartan (COZAAR) 100 mg tablet Take 1 tablet by mouth once daily. - dilTIAZem CD (CARDIZEM CD) 120 mg 24 hr capsule Take 1 capsule by mouth once daily. - pravastatin (PRAVACHOL) 20 mg tablet Take 1 tablet by mouth once daily. - acetaminophen (TYLENOL) 325 mg tablet Take 2 tablets by mouth every 6 hours as needed for pain. - carboxymethylcellulose sodium (REFRESH OPHTHALMIC) Use 1 [...] tablet daily. Problem List As Of Date 10/14/2023 Noted Resolved Calcaneal Spur [M77.30] 07/30/2009 Sprain [...] artery stenosis [I65.23] 09/20/2019 Mixed hyperlipidemia [E78.2] Urinary incontinence [R32] 09/21/2023 OAB (overactive bladder) [N32.81] 09/21/2023 Anxiety with depression [F41.8] 09/21/2023 Prescriptions ordered this encounter Disp Refills Start End NYSTATIN 100,000 UNIT/GRAM TOPICAL C* 30 g 2 10/14/2023 10/28/2023 Route: TOPICAL Sig: Apply to affected area two times a day for 14 days. Encounter Status:Closed by CITLALLI ARANA MA on 10/14/23 [facility] CNOVon 09-21-2023 CNOV Office Visit (FAMPWS ) -- TERRIE SAMANO ([id number]) 1935 F Date Time Provider Department 09/21/23 3:00 PM JORDAN LEVINE During your visit today, we recorded the following information about you: Pulse Respiration Blood pressure Weight 64/minute 16/minute 128/74 79.7 kg Jordan Levine MD 09/21/2023 4:57 PM Signed Chief Complaint Patient presents with: 6 Month Exam HPI Terrie Samano is a 88 year old female who presents here today for 6 month follow up. Resides at [facility]. Pt feels that it is easier for her to get blood work done at [facility]. Uses a walker and a Rolator. [...] shoulder/back in Jul and injection in neck Nov . She followed up a week ago with [...] Dr. Whitehead Macular degeneration Mixed hyperlipidemia Hyperlipidemia PM - PAST MEDICAL HISTORY OF 2001 left [...] of 2) Never done RSV Vaccine(1 - (more content not included)... Normal [facility] CNPNon 09-08-2023 CNPN Telephone (FAMPWS) -- TERRIE SAMANO ([id number]) 1935 F Date Time Provider Department 09/08/23 JORDAN LEVINE [facility] During your visit today, we recorded the following information about you: Stacey Mueller RN 09/08/2023 2:53 PM Signed Patient will be seeing Dr. Levine on 09/21 and has lab orders placed to have completed prior to appt. Pt resides at [facility] and asking if she can have her labs drawn there, by [facility] prosthetics lab technician? If agreeable, patient needs current lab orders faxed to [facility] at FAX #: [phone]. Please call patient with response. Thank you. Jordan Levine MD 09/09/2023 9:04 AM Signed OK to fax lab orders to [facility] so they can be drawn there MD Ervin Douglass Sherrie, RN 09/09/2023 9:48 AM Signed Lab orders faxed to [facility] as requested. Pt updated. Stacey Mueller RN Allergies As of Date: 09/08/2023 Noted Allergy Reaction COUGH SYRUP (GUAIFENESIN) 07/30/2009 2 - Rash IODINE 07/30/2009 2 - Rash Date Reviewed: 03/18/2023 Reviewed by: Citlalli Arana Ma - Fully Assessed Reason for Visit: Patient Question [1477] Prescriptions as of 09/09/2023 - meloxicam (MOBIC) 15 mg tablet Take 1 tablet by mouth once daily. - losartan (COZAAR) 100 mg tablet Take 1 tablet by mouth once daily. - dilTIAZem CD (CARDIZEM CD) 120 mg 24 hr capsule Take 1 capsule by mouth once daily. - pravastatin (PRAVACHOL) 20 mg tablet Take 1 tablet by mouth once daily. - gabapentin (NEURONTIN) 300 mg capsule Take [...] 6 hours as needed for pain. - carboxymethylcellulose sodium (REFRESH OPHTHALMIC) Use 1 [...] tablet daily. Problem List As Of Date 09/08/2023 Noted Resolved Calcaneal Spur [M77.30] 07/30/2009 Sprain [...] 09/20/2019 Mixed hyperlipidemia [E78.2] Encounter Status:Closed by STACEY MUELLER on 09/09/23 Normal [facility] CR Wrist Complete 3 Views Le [facility] 05-06-2018 CR Wrist Complete 3 Views Left Patient Name: TERRIE SAMANO Diagnostic Radiology Exam Date/Time 05/05/2018 12:52:22 EDT Exam CR Wrist Complete 3 Views Left Ordering Physician ROLANDO RUIZ NATALIE M Accession Number [id number] CPT4 Codes 92898 () Reason For Exam PAIN Report CLINICAL HISTORY: PAIN COMPARISON: 03/10/2018. Technique: AP, lateral, and oblique views were obtained of the left wrist. FINDINGS: There is interval healing of a displaced impacted fracture of the distal radius. The ulna is also displaced. Bony callus formation is present. The alignment is unchanged. No new fractures identified. The bones are osteopenic. No radiopaque foreign bodies are present within the soft tissues. IMPRESSION: Interval healing of a displaced impacted left distal radius fracture in unchanged alignment. Report Dictated on Final Dictating Physician: MD KIM, BARRIE NGUYEN Signed Date and Time: 05/06/2018 9:29 am Signed by: MD ALVAREZ YUN ROBERT Transcribed Date and Time: 05/06/2018 9:30 Normal [facility] CR Wrist Complete 3 Views [facility] 03-10-2018 CR Wrist Complete 3 Views Left Patient Name: TERRIE SAMANO Diagnostic Radiology Exam Date/Time 03/10/2018 09:05:00 EDT Exam CR Wrist Complete 3 Views Left Ordering Physician ROLANDO RUIZ NATALIE M Accession Number [id number] CPT4 Codes 10163 () Reason For Exam PAIN Report Clinical: 83-year-old female patient with left wrist pain. History of a fall on 02/01/2018. Left wrist, 03/10/2018. 3 views of the left wrist show a severely comminuted fracture of the distal radius, fractures involving the articular surface of the radius, and the distal fracture portion is showing a predominant posterior displacement and proximal retraction onto the distal diametaphysis of the radius. The carpal bones together with the fractured distal portion of the radius are displaced posteriorly and proximally. There is fracture through the styloid process of the ulna. Osteoporosis is seen. There is some bony reaction attendant to the fracture. IMPRESSION: 1. Severely comminuted fracture of the distal radial metaphysis, with significant posterior and proximal displacement of the fracture fragments, and together with displacement posteriorly and proximally of the carpal bones. 2. Fractures of the styloid process of the ulna. 3. Some bony reaction attendant to the fractures is noted. There is osteoporosis. Findings discussed over the telephone with Cyndi Ruiz PA-C, at 10:38 AM 03/10/2018. Report Dictated on Workstation: [employer] Final Dictating Physician: MD WARE SHARDUL Signed Date and Time: 03/10/2018 10:39 am Signed by: MD WARE SHARDUL Transcribed Date and Time: 03/10/2018 10:40 Normal [facility] Vital Signs Date Time Vital Sign Value Performing Clinician Faci lity 03-23-2024 14:55-0400 Body mass index (BMI) [Ratio] 32.76 kg/m2 Jordan Levine MD Work Phone: [facility] 03-23-2024 14:55-0400 Body weight 78.65 kg Jordan Levine MD Work Phone: [facility] 03-23-2024 14:55-0400 Diastolic blood pressure 84 mm[Hg] Jordan Levine MD Work Phone: [facility] 03-23-2024 14:55-0400 Heart rate 80 /min Jordan Levine MD Work Phone: [facility] 03-23-2024 14:55-0400 Respiratory rate 18 /min Jordan Levine MD Work Phone: [facility] 03-23-2024 14:55-0400 Systolic blood pressure 132 mm[Hg] Jordan Levine MD Work Phone: [facility] 12-31-2023 13:51-0500 Body weight 77.93 kg Harry Teodoro LIGHTNING ROD INSTALLER.SPA TECHNICIAN Work Phone: [facility] 12-31-2023 13:51-0500 Diastolic blood pressure 70 mm[Hg] Harry Teodoro LIGHTNING ROD INSTALLER.SPA TECHNICIAN Work Phone: [facility] 12-31-2023 13:51-0500 Heart rate 87 /min Harry Teodoro LIGHTNING ROD INSTALLER.SPA TECHNICIAN Work Phone: [facility] 12-31-2023 13:51-0500 Respiratory rate 16 /min Harry Teodoro LIGHTNING ROD INSTALLER.SPA TECHNICIAN Work Phone: [facility] 12-31-2023 13:51-0500 SaO2% (BldA) [Mass fraction] 96 % Harry Teodoro LIGHTNING ROD INSTALLER.SPA TECHNICIAN Work Phone: [facility] 12-31-2023 13:51-0500 Systolic blood pressure 120 mm[Hg] Harry Teodoro LIGHTNING ROD INSTALLER.SPA TECHNICIAN Work Phone: [facility] 01-19-2023 14:27-0400 Body weight 82.64 kg Jordan Levine MD Work Phone: [facility] 01-19-2023 14:27-0400 Diastolic blood pressure 76 mm[Hg] Jordan Levine MD Work Phone: [facility] 01-19-2023 14:27-0400 Heart rate 68 /min Jordan Levine MD Work Phone: [facility] 01-19-2023 14:27-0400 Respiratory rate 16 /min Jordan Levine MD Work Phone: [facility] 01-19-2023 14:27-0400 Systolic blood pressure 138 mm[Hg] Jordan Levine MD Work Phone: [facility] 09-18-2022 14:05-0500 Body weight 82.64 kg Jordan Levine MD Work Phone: [facility] 09-18-2022 14:05-0500 Diastolic blood pressure 72 mm[Hg] Jordan Levine MD Work Phone: [facility] 09-18-2022 14:05-0500 Heart rate 82 /min Jordan Levine MD Work Phone: [facility] 09-18-2022 14:05-0500 Respiratory rate 16 /min Jordan Levine MD Work Phone: [facility] 09-18-2022 14:05-0500 Systolic blood pressure 124 mm[Hg] Jordan Levine MD Work Phone: [facility] 06-03-2022 15:13-0400 Body weight 81.47 kg Jordan Levine MD Work Phone: [facility] 06-03-2022 15:13-0400 Diastolic blood pressure 84 mm[Hg] Jordan Levine MD Work Phone: [facility] 06-03-2022 15:13-0400 Heart rate 72 /min Jordan Levine MD Work Phone: [facility] 06-03-2022 15:13-0400 Respiratory rate 20 /min Jordan Levine MD Work Phone: [facility] 06-03-2022 15:13-0400 Systolic blood pressure 136 mm[Hg] Jordan Levine MD Work Phone: [facility] 03-16-2022 15:20-0400 Body weight 83.1 kg Jordan Levine MD Work Phone: [facility] 03-16-2022 15:20-0400 Diastolic blood pressure 78 mm[Hg] Jordan Levine MD Work Phone: [facility] 03-16-2022 15:20-0400 Heart rate 82 /min Jordan Levine MD Work Phone: [facility] 03-16-2022 15:20-0400 Respiratory rate 16 /min Jordan Levine MD Work Phone: [facility] 03-16-2022 15:20-0400 SaO2% (BldA) [Mass fraction] 93 % Jordan Levine MD Work Phone: [facility] 03-16-2022 15:20-0400 Systolic blood pressure 128 mm[Hg] Jordan Levine MD Work Phone: [facility] Encounters Encounter Date Encounter Type Care Provider Facility Start: 07-27-2024 End: 07-27-2024 Refill Jordan Levine MD Work Phone: [facility] Comment on above: Refill Request Start: 06-19-2024 End: 06-20-2024 Telephone encounter Jordan Levine MD Work Phone: [facility] Comment on above: Electronic Communica tion ([facility]) Start: 06-08-2024 Telephone encounter Jordan walsh MD Work Phone: [facility] Comment on above: Electronic Communica tion ([facility] re: fall) Start: 05-02-2024 Telephone encounter Jordan walsh MD Work Phone: [facility] [place] Comment on above: Electronic Communica tion ([facility]) Start: 05-01-2024 Telephone encounter Jordan walsh MD Work Phone: [facility] [place] Comment on above: Electronic Communica tion ([facility]) Start: 04-03-2024 Refill Harry MELENDEZ RN.SPA TECHNICIAN Work Phone: [facility] Comment on above: Refill Request Start: 03-30-2024 Telephone encounter Jordan walsh MD Work Phone: [facility] [place] Comment on above: Electronic Communica tion (jail faxed report) Start: 03-23-2024 End: 03-23-2024 ambulatory JORDAN LEVINE Facility:[facility] Start: 03-23-2024 End: 03-23-2024 Patient encounter procedure Jordan Levine MD Work Phone: [facility] [place] Comment on above: Essential hypertensi on (Primary Dx); Mixed hyperlipidemia; Anxiety with depression; Acute deep vein thrombosis (DVT) of proximal vein of right lower extremity (HCC); Lumbar radiculopathy; Chronic back pain, unspecified back location, unspecified back pain laterality; OAB (overactive bladder); Urinary incontinence, unspecified type; Low hemoglobin; Primary hyperparathyroidism (HCC) Start: 03-13-2024 Telephone encounter Jordan walsh MD Work Phone: [facility] Comment on above: Lab Orders (/) Start: 03-08-2024 Refill Vonda Valencia APRN.SPA TECHNICIAN Work Phone: [facility] [place] Comment on above: Refill Request Start: 03-06-2024 Telephone encounter Jordan walsh MD Work Phone: [facility] [place] Comment on above: Medication Problem ( Gabapentin) Start: 03-01-2024 Refill Harry MELENDEZ RN.SPA TECHNICIAN Work Phone: [facility] [place] Comment on above: Refill Request Start: 02-17-2024 Telephone encounter Jordan walsh MD Work Phone: [facility] [place] Comment on above: [facility] Start: 01-10-2024 Refill Jordan rosales MD Work Phone: [facility] [place] Comment on above: Refill Request (Nyst atin) Start: 12-31-2023 End: 12-31-2023 Office outpatient visit 15 minutes Harry Laura APRN.SPA TECHNICIAN Work Phone: [facility] [place] Comment on above: Acute deep vein thro mbosis (DVT) of proximal vein of right lower extremity (HCC) (Primary Dx); Nonrheumatic mitral valve stenosis Start: 12-31-2023 End: 12-31-2023 ambulatory JORDAN LEVINE Facility:[facility] Start: 12-21-2023 Telephone encounter Jordan walsh MD Work Phone: [facility] [place] Comment on above: Forms (Request to ho ld Blood Thinner ) Start: 11-22-2023 Telephone encounter Harry arias APRN.SPA TECHNICIAN Work Phone: [facility] [place] Comment on above: Results Start: 11-19-2023 End: 11-19-2023 ambulatory JORDAN MERCADONEAL Facility:[facility] Start: 11-19-2023 End: 11-19-2023 ambulatory JORDAN MERCADONEAL Facility:[facility] Start: 11-16-2023 End: 11-16-2023 ambulatory HARRY LAURA Facility:[facility] Start: 09-21-2023 End: 09-21-2023 ambulatory JORDAN LEVINE Facility:[facility] Start: 09-08-2023 Telephone encounter Jordan walsh MD Work Phone: [facility] [place] Comment on above: Patient Question Start: 06-14-2023 Telephone encounter Jordan walsh MD Work Phone: [facility] [place] Comment on above: not on current list (Nystatin cream) Start: 05-31-2023 Telephone encounter Jordan walsh MD Work Phone: [facility] [place] Comment on above: Fall Start: 05-11-2023 ambulatory Jordan rosales MD Work Phone: [facility] Start: 04-29-2023 Telephone encounter Jordan walsh MD Work Phone: [facility] [place] Comment on above: Electronic Communica tion Start: 03-05-2023 Telephone encounter Jordan walsh MD Work Phone: [facility] [place] Comment on above: Electronic Communica tion ([facility]) Start: 01-19-2023 End: 01-19-2023 Patient encounter procedure Jordan Levine MD Work Phone: [facility] Comment on above: Hospital discharge f ollow-up (Primary Dx); At high risk for falls; Essential hypertension Start: 01-07-2023 Patient Outreach Jordan gore MD Work Phone: [facility] Comment on above: Transition Of Care ( [facility] hosp f/u) Start: 09-18-2022 End: 09-18-2022 Patient encounter procedure Jordan Levine MD Work Phone: [facility] Comment on above: Essential hypertensi on (Primary Dx); Mixed hyperlipidemia; Elevated glucose; Lumbar radiculopathy; Right hip pain; Yeast dermatitis Start: 08-25-2022 Telephone encounter Jordan walsh MD Work Phone: [facility] Comment on above: Forms Start: 06-03-2022 End: 06-03-2022 Patient encounter procedure Jordan Levine MD Work Phone: [facility] [place] Comment on above: Lumbar radiculopathy (Primary Dx); Right hip pain; Yeast dermatitis; Essential hypertension; Chronic back pain, unspecified back location, unspecified back pain laterality Start: 03-16-2022 End: 03-16-2022 Patient encounter procedure Jordan Levine MD Work Phone: [facility] [place] Comment on above: Essential hypertensi on (Primary Dx); Lumbar radiculopathy; Mixed hyperlipidemia; Primary hyperparathyroidism (HCC); Osteoarthritis, unspecified osteoarthritis type, unspecified site; Bilateral carotid artery stenosis; Gait abnormality; Chronic back pain, unspecified back location, unspecified back pain laterality Start: 05-05-2018 Patient encounter Cyndi [facility] Start: 03-11-2018 Patient encounter Isael Reynoso [facility] Start: 03-10-2018 Patient encounter Cyndi [facility] Plan of Treatment Date Care Activity Detail Author Start: 11-20-2031 Urine microalbumin profile [facility] Start: 08-31-2030 Urine microalbumin profile DTAP,TDAP,TD (3 - Td or Tdap) [facility] Start: 03-14-2027 Diabetes Screening Diabetes Screening [facility] Start: 03-16-2026 DIABETES SCREEN DIABETES SCREEN [facility] Start: 03-16-2026 Diabetes Screening Diabetes Screening [facility] Start: 09-15-2025 DIABETES SCREEN DIABETES SCREEN [facility] Start: 03-09-2025 DIABETES SCREEN DIABETES SCREEN [facility] Start: 09-29-2024 End: 09-29-2024 Patient encounter procedure 09/29/2024 3:00 PM EST Office Visit Family [facility] [address] [place] [address] Jordan Levine MD [address] [place] [address] 6 mo f/u [facility] Comment on above: 6 mo f/u Start: 09-23-2024 End: 12-23-2024 CBC W Auto Differential panel - Blood COMPLETE BLOOD COUNT AND DIFFERENTIAL Lab Routine Essential hypertension Low hemoglobin Expected: 09/23/2024 (Approximate), Expires: 12/23/2024 [facility] Work Phone: Comment on above: Expected: 09/23/2024 (Approximate), Expi res: 12/23/2024 Start: 09-23-2024 End: 12-23-2024 Comprehensive metabolic 2000 panel - Serum or Plasma COMPREHENSIVE METABOLIC PANEL Lab Routine Mixed hyperlipidemia Expected: 09/23/2024 (Approximate), Expires: 12/23/2024 [facility] Comment on above: Expected: 09/23/2024 (Approximate), Expi res: 12/23/2024 Start: 09-23-2024 End: 12-23-2024 Lipid 1996 panel - Serum or Plasma LIPID PANEL BASIC Lab Routine Essential hypertension Mixed hyperlipidemia Expected: 09/23/2024 (Approximate), Expires: 12/23/2024 [facility] Comment on above: Expected: 09/23/2024 (Approximate), Expi res: 12/23/2024 Start: 06-25-2024 Covid-19 Vaccine ( season) Covid-19 Vaccine ( season) [facility] Start: 06-25-2024 Influenza vaccination Influenza Vaccine (#1) [facility] Start: 03-23-2024 End: 03-23-2024 Patient encounter procedure 03/23/2024 3:00 PM EDT Office Visit Family [facility] [address] [place] [address] Jordan Levine MD [address] [place] [id number] 6 month follow up [facility] Comment on above: 6 month follow up Start: 03-13-2024 End: 06-12-2024 CBC panel - Blood by Automated count COMPLETE BLOOD COUNT Lab Routine Essential hypertension Expected: 03/13/2024 (Approximate), Expires: 06/12/2024 [facility] Comment on above: Expected: 03/13/2024 (Approximate), Expi res: 06/12/2024 Start: 03-13-2024 End: 06-12-2024 Comprehensive metabolic 2000 panel - Serum or Plasma COMPREHENSIVE METABOLIC PANEL Lab Routine Essential hypertension Mixed hyperlipidemia Expected: 03/13/2024 (Approximate), Expires: 06/12/2024 [facility] Work Phone: Comment on above: Expected: 03/13/2024 (Approximate), Expi res: 06/12/2024 Start: 03-13-2024 End: 06-12-2024 Lipid 1996 panel - Serum or Plasma LIPID PANEL BASIC Lab Routine Essential hypertension Mixed hyperlipidemia Expected: 03/13/2024 (Approximate), Expires: 06/12/2024 [facility] Comment on above: Expected: 03/13/2024 (Approximate), Expi res: 06/12/2024 Start: 01-20-2024 Covid-19 Vaccine ( season) Covid-19 Vaccine ( season) [facility] Start: 10-25-2023 Advance Directive Discussion Advance Directive Discussion [facility] Start: 06-25-2023 Covid-19 Vaccine ( season) Covid-19 Vaccine ( season) [facility] Start: 06-25-2023 Influenza vaccination [facility] Start: 03-18-2023 End: 05-18-2023 CBC panel - Blood by Automated count CBC Lab Routine Essential hypertension Expected: 03/18/2023 (Approximate), Expires: 05/18/2023 [facility] Work Phone: Comment on above: Expected: 03/18/2023 (Approximate), Expi res: 05/18/2023 Start: 03-18-2023 End: 05-18-2023 Comprehensive metabolic 2000 panel - Serum or Plasma COMP METABOLIC PANEL Lab Routine Essential hypertension Mixed hyperlipidemia Expected: 03/18/2023 (Approximate), Expires: 05/18/2023 [facility] Work Phone: Comment on above: Expected: 03/18/2023 (Approximate), Expi res: 05/18/2023 Start: 03-18-2023 End: 05-18-2023 Lipid 1996 panel - Serum or Plasma LIPID PANEL BASIC Lab Routine Essential hypertension Mixed hyperlipidemia Expected: 03/18/2023 (Approximate), Expires: 05/18/2023 [facility] Work Phone: Comment on above: Expected: 03/18/2023 (Approximate), Expi res: 05/18/2023 Start: 11-29-2022 COVID-19 VACCINE (5 - Pfizer series) COVID-19 VACCINE (5 - Pfizer series) [facility] Start: 10-25-2022 ADVANCE DIRECTIVE DISCUSSION ADVANCE DIRECTIVE DISCUSSION [facility] Start: 10-25-2022 DEPRESSION ASSESSMENT DEPRESSION ASSESSMENT [facility] Start: 09-16-2022 End: 11-16-2022 CBC W Auto Differential panel - Blood CBC + DIFF Lab Routine Essential hypertension Primary hyperparathyroidism (HCC) Osteoarthritis, unspecified osteoarthritis type, unspecified site Expected: 09/16/2022 (Approximate), Expires: 11/16/2022 [facility] Work Phone: Comment on above: Expected: 09/16/2022 (Approximate), Expi res: 11/16/2022 Start: 09-16-2022 End: 11-16-2022 Comprehensive metabolic 2000 panel - Serum or Plasma COMP METABOLIC PANEL Lab Routine Essential hypertension Mixed hyperlipidemia Expected: 09/16/2022 (Approximate), Expires: 11/16/2022 [facility] Work Phone: Comment on above: Expected: 09/16/2022 (Approximate), Expi res: 11/16/2022 Start: 09-16-2022 End: 11-16-2022 LIPID PANEL BASIC LIPID PANEL BASIC Lab Routine Essential hypertension Mixed hyperlipidemia Expected: 09/16/2022 (Approximate), Expires: 11/16/2022 [facility] Work Phone: Comment on above: Expected: 09/16/2022 (Approximate), Expi res: 11/16/2022 Start: 06-25-2022 Influenza vaccination INFLUENZA (#1) [facility] Start: 12-05-2021 COVID-19 VACCINE (4 - Booster for Pfizer series) COVID-19 VACCINE (4 - Booster for Pfizer series) [facility] Start: 10-25-2021 DEPRESSION ASSESSMENT DEPRESSION ASSESSMENT [facility] Start: 09-29-2021 COVID-19 VACCINE (4 - Booster for Pfizer series) COVID-19 VACCINE (4 - Booster for Pfizer series) [facility] Start: 01-22-2012 RSV Vaccine (1 - 1-dose 75+ series) RSV Vaccine (1 - 1-dose 75+ series) [facility] Start: 2002 Pneumococcal Vaccine: 65+ (1 - PCV) Pneumococcal Vaccine: 65+ (1 - PCV) [facility] Start: 2002 PNEUMOCOCCAL: 65+ (1 - PCV) PNEUMOCOCCAL: 65+ (1 - PCV) [facility] Start: 1997 RSV Vaccine (1 - 1-dose 60+ series) RSV Vaccine (1 - 1-dose 60+ series) [facility] Start: 1987 SHINGRIX VACCINE (1 of 2) SHINGRIX VACCINE (1 of 2) [facility] Immunizations Immunization Date Immunization Notes Care Provider Fa [facility] 09-21-2023 COVID-19 vaccine, ag e 12+ yr, 2022- season (PFIZER-BIONTCeros) Harry Laura APRN.SPA TECHNICIAN Work Phone: [facility] 09-21-2023 pneumococcal conjuga te (PCV20) vaccine, 20 valent (PREVNAR 20) Harry Laura APRN.SPA TECHNICIAN Work Phone: [facility] 08-18-2023 influenza, high dose seasonal, preservative-free Harry Laura LIGHTNING ROD INSTALLER.SPA TECHNICIAN Work Phone: [facility] 08-18-2023 influenza virus vaccine, unspecified formulation Jordan Levine MD Work Phone: [facility] 09-10-2022 influenza, high dose seasonal, preservative-free Jordan Levine MD Work Phone: [facility] 09-10-2022 influenza virus vaccine, unspecified formulation Jordan Levine MD Work Phone: [facility] 11-20-2021 tetanus toxoid, redu amanda diphtheria toxoid, and acellular pertussis vaccine, adsorbed Jordan Levine MD Work Phone: [facility] 08-04-2021 COVID-19 vaccine, ag e 12+ yr (PFIZER-BIONTECH - PURPLE TOP) Jordan Levine MD Work Phone: [facility] 07-29-2021 influenza, high dose seasonal, preservative-free Jordan Levine MD Work Phone: [facility] 11-26-2020 COVID-19 vaccine, ag e 12+ yr (PFIZER-BIONTECH - PURPLE TOP) Jordan Levine MD Work Phone: [facility] 11-09-2020 COVID-19 vaccine, ag e 12+ yr (PFIZER-BIONTECH - PURPLE TOP) Jordan Levine MD Work Phone: [facility] 08-31-2020 tetanus toxoid, redu amanda diphtheria toxoid, and acellular pertussis vaccine, adsorbed Jordan Levine MD Work Phone: [facility] 04-29-2015 tetanus toxoid, redu amanda diphtheria toxoid, and acellular pertussis vaccine, adsorbed Jordan Levine MD Work Phone: [facility] 08-24-1997 influenza virus vaccine, whole virus Jordan Levine MD Work Phone: [facility] 08-04-1993 influenza virus vaccine, whole virus Jordan Levine MD Work Phone: [facility] Payers Date Payer Category Payer Private Health Insurance HU[employer]NA HU[employer]NA MEDICARE SUPPLEMENT [id number] 2015-Present [id number] [place] [id number] Indemnity [id number] 2015 Private Health Insurance HUMANA HU[employer]NA MEDICARE SUPPLEMENT [id number] 2015-Present [phone] [address] [address] [place] [address] Indemnity [id number] 2015 Medicare [id number] 2001 Medicare 2001 Medicare MEDICARE MEDICAR E A AND B [id number] 2001-Present [phone] [address] [address] [place] [address] Medicare [id number] 2001 Medicare [id number] Social History Date Type Detail Facility Start: 05-02-2018 End: 09-18-2022 Tobacco smoking status NHIS Never smoked tobacco [facility] Start: 03-16-2022 End: 03-23-2024 Alcohol intake Current non-drinker of alcohol (finding) [facility] Start: 03-12-2021 End: 09-18-2022 History SDOH Alcohol Frequency 1 [facility] Start: 03-12-2021 End: 09-18-2022 History SDOH Social Connections Phone 5 [facility] Start: 03-12-2021 End: 09-18-2022 History SDOH Social Connections Mandaeism 3 [facility] Start: 03-12-2021 End: 09-18-2022 History SDOH Social Connections Living 7 [facility] Start: 03-12-2021 End: 09-18-2022 History SDOH Physical Activity DPW 0 [facility] Start: 03-12-2021 End: 09-18-2022 History SDOH Stress 2 [facility] Start: 03-11-2021 Education 18 [facility] Start: 1935 Sex Assigned At Female C [facility] Start: 03-06-2022 End: 09-18-2022 Exposure to SARS-CoV-2 (event) Not sure [facility] Start: 05-02-2018 End: 09-18-2022 Tobacco use and exposure Smokeless tobacco non-user [facility] Start: 09-17-2022 End: 11-20-2022 History of Social function [facility] Start: 09-17-2022 End: 11-20-2022 Social connection and isolation panel [facility] Do you belong to any clubs or organizations such as rastafari groups, unions, fraternal or athletic groups, or school groups? Yes [facility] Are you now , , , , never or living with a partner? Never [facility] How often to you hav e a drink containing alcohol? Never [facility] How many standard dr inks containing alcohol do you have on a typical day? Patient does not drink [facility] Do you feel stress - tense, restless, nervous, or anxious, or unable to sleep at night because your mind is troubled all the time - these days [OSQ] Only a little [facility] (I/We) worried whedanielle er (my/our) food would run out before (I/we) got money to buy more. Never true [facility] In the past 12 month s, was there a time when you were not able to pay the mortgage or rent on time? No [facility] Start: 09-08-2021 Gender identity Identifies as female gender (finding) [facility] Start: 09-08-2021 Sexual orientation Heterosexual (ammon soto) [facility] Clinical Notes 03-16-2022 to 07-27-2024 Telephone Encounter - Pat Vidal - 07/27/2024 2:25 PM EDTTelephone Encounter - Pat Vidal - 07/27/2024 2:25 PM EDTTelephone Encounter - Lyn Flaherty MA - 06/20/2024 11:03 AM EDT Note Date & Type Note Facility 07-27-2024 Telephone encounter Note Prescription Refill Information The patient has been identified by name and date of : Yes Caregiver verified no other encounters exist for this prescription request: Yes Caregiver confirmed with patient/requestor that no other refills are due, in the near future, with this provider at this time: Yes The last office visit in the department: 03-23-24 Does the patient have a future office visit with this provider/department: Yes Requested Prescriptions Pending Prescriptions Disp Refills dilTIAZem CD (CARDIZEM CD) 120 mg 24 hr capsule 90 capsule 3 Sig: Take 1 capsule by mouth once daily. Pat Vidal July 27, 2024 2:26 PM [facility] 07-27-2024 Miscellaneous Notes Prescription Refill Information The patient has been identified by name and date of : Yes Caregiver verified no other encounters exist for this prescription request: Yes Caregiver confirmed with patient/requestor that no other refills are due, in the near future, with this provider at this time: Yes The last office visit in the department: 03-23-24 Does the patient have a future office visit with this provider/department: Yes Requested Prescriptions Pending Prescriptions Disp Refills dilTIAZem CD (CARDIZEM CD) 120 mg 24 hr capsule 90 capsule 3 Sig: Take 1 capsule by mouth once daily. Pat Vidal July 27, 2024 2:26 PM documented in this encounter [facility] 06-20-2024 Telephone encounter Note Form faxed back to information below. Lyn Flaherty MA [facility] 06-20-2024 Miscellaneous Notes Form faxed back to information below. Lyn Flaherty MA Noted Jordan Levine MD Office received fax from James Delgado regarding fall that occurred on 06/18/24 at 4:45 pm. Please review fax. Will fax back PCP's response to [phone]. Lyn Flaherty MA documented in this encounter [facility] 06-20-2024 Telephone encounter Note Noted Jordan Levine MD [facility] 06-19-2024 Telephone encounter Note Office received fax from James Delgado regarding fall that occurred on 06/18/24 at 4:45 pm. Please review fax. Will fax back PCP's response to [phone]. Lyn Flaherty MA [facility] 06-08-2024 Telephone encounter Note PCP reviewed and noted, faxed back to info below. Lyn Flaherty MA [facility] 06-08-2024 Miscellaneous Notes PCP reviewed and noted, faxed back to info below. Lyn Flaherty MA Office received fax from James Delgado on 06/07/24 regarding pt safety. Routed to PCP to review and note on. Once complete fax back to James Delgado at [phone]. Lyn Flaherty MA Resident rang call light at 0815 to report she had fallen. Upon entering room resident was sitting on bathroom floor, back against cupboards legs outstretched in front of her. Walker in reach. Small amount of blood noted on bathroom floor, and forehead. Resident stated she was getting ready to head down for breakfast after dressing, and while turning around she lost her balance and fell onto her left side, striking the left side of her head on the floor. Vitals: BP 166/82, P: 88, R: 20, T - 97.6(forehead). SpO2 93% RA. PERRLA.ROM per usual x 4 extremities. Was assisted to stand x 2 assist with FWB. Small raised area with laceration approximately 3 mm in size to left sie of forehead. Area cleansed with soap and water, dried, secured closed with 2 steri strips. No other bumps/banks/discolorations noted to skin. Ambulates about room with walker without c/o pain or difficulty. Ice pack applied to head, neuro check initiated. All notified of fall. Call pendent on person and working, will continue to monitor. HUGO Mahmood. documented in this encounter [facility] 06-08-2024 Telephone encounter Note Office received fax from James Delgado on 06/07/24 regarding pt safety. Routed to PCP to review and note on. Once complete fax back to James Delgado at [phone]. Lyn Flaherty MA Resident rang call light at 0815 to report she had fallen. Upon entering room resident was sitting on bathroom floor, back against cupboards legs outstretched in front of her. Walker in reach. Small amount of blood noted on bathroom floor, and forehead. Resident stated she was getting ready to head down for breakfast after dressing, and while turning around she lost her balance and fell onto her left side, striking the left side of her head on the floor. Vitals: BP 166/82, P: 88, R: 20, T - 97.6(forehead). SpO2 93% RA. PERRLA.ROM per usual x 4 extremities. Was assisted to stand x 2 assist with FWB. Small raised area with laceration approximately 3 mm in size to left sie of forehead. Area cleansed with soap and water, dried, secured closed with 2 steri strips. No other bumps/banks/discolorations noted to skin. Ambulates about room with walker without c/o pain or difficulty. Ice pack applied to head, neuro check initiated. All notified of fall. Call pendent on person and working, will continue to monitor. HUGO Mahmood. [facility] 05-02-2024 Telephone encounter Note Paperwork faxed back to [facility] at number below. Lyn Flaherty MA [facility] 05-02-2024 Miscellaneous Notes Paperwork faxed back to [facility] at number below. Lyn Flaherty MA Noted; continue to monitor Jordan Levine MD Office received fax from [facility]. Routed to PCP to review. Once reviewed fax back to [facility] at [phone]. Lyn Flaherty MA Note text: Resident noted to have 2-3+ pitting edema to RLE with a small area 1.5 cm x 1.5 cm seeping serous fluid, 1 + pitting edema to LLE. Redness noted bilaterally, no warmth or pain. Reports has been like this fo ra couple days. Has been compliant with wearing aurelio hose but does not elevate legs. Dressing applied ot seeping area and encouraged to keep legs elevated AMAP. Update to PCP for further instruction, will continue to monitor. documented in this encounter [facility] 05-02-2024 Telephone encounter Note Noted; continue to monitor Jordan Levine MD [facility] 05-02-2024 Telephone encounter Note Office received fax from [facility] [employer]. Routed to PCP to review. Once reviewed fax back to [facility] at [phone]. Lyn Flaherty MA Note text: Resident noted to have 2-3+ pitting edema to RLE with a small area 1.5 cm x 1.5 cm seeping serous fluid, 1 + pitting edema to LLE. Redness noted bilaterally, no warmth or pain. Reports has been like this fo ra couple days. Has been compliant with wearing aurelio hose but does not elevate legs. Dressing applied ot seeping area and encouraged to keep legs elevated AMAP. Update to PCP for further instruction, will continue to monitor. [facility] 05-01-2024 Telephone encounter Note Reviewed and noted by PCP. Faxed back to information below. Lyn Flaherty MA [facility] 05-01-2024 Miscellaneous Notes Reviewed and noted by PCP. Faxed back to information below. Lyn Flaherty MA Office received fax from James Delgado regarding pt fall. Fax back to James Delgado at [phone]. Lyn Flaherty MA 04/30/24 note text: Another resident alerted this Nurse that someone had fallen in the riggins. Found resident lying on her left side outside her apartment door. Stated she was attempted to step on a fly, lost her balance and fell. Stated she hit the left side of her head. No redness or swelling noted to head or elsewhere. Vitals taken, BP 154/70, P: 96, R: 20, SPO2: 94%. 2 assist to stand and resident able to ambulate into apartment. Full ROM per usual. Neuro-checks initiated. PCP and AL manager technical training notified, message left with sister. Savannah Guzman Nursing - RN documented in this encounter [facility] 05-01-2024 Telephone encounter Note Office received fax from [facility] regarding pt fall. Fax back to [facility] at [phone]. Lyn Flaherty MA 04/30/24 note text: Another resident alerted this Nurse that someone had fallen in the riggins. Found resident lying on her left side outside her apartment door. Stated she was attempted to step on a fly, lost her balance and fell. Stated she hit the left side of her head. No redness or swelling noted to head or elsewhere. Vitals taken, BP 154/70, P: 96, R: 20, SPO2: 94%. 2 assist to stand and resident able to ambulate into apartment. Full ROM per usual. Neuro-checks initiated. PCP and AL manager technical training notified, message left with sister. Savannah Guzman Nursing - RN [facility] 03-30-2024 Telephone encounter Note [facility] sends fax notifying provider that pt had a fall 03/29/24. Note text: Staff alerted nurse that resident had fallen in the hallway at 0745. When approaching resident, she was sitting on bottom on hallway floor, legs outstretched in front of her with back against wall. Walker in reach. Resident stated she was trying to move out of her neighbor's way, when she lost her balance and fell. No new injures noted/reported, denied hitting head. Resident stated, I was testing the force of gravity once again. Neighbor stated, I don't know why she did that, I had more than enough room but she seen me, slammed herself up against the wall and slide down it. I just don't know why she did that. Vitals: BP-162/82, 78, 20, 97.6(forehead)Sp)2-94%RA, PERRLA.ROM equal per usual x 4 extremities. Assisted to stand x2 assist with FWB. No bumps/banks/discolorations of skin. Ambulated to with walker for breakfast without c/o pain or difficulty. No c/o voiced, will continue to monitor. PCP, AL director, Sister Mari notified. Citlalli Arana MA [facility] 03-30-2024 Miscellaneous Notes [facility] sends fax notifying provider that pt had a fall 03/29/24. Note text: Staff alerted nurse that resident had fallen in the hallway at 0745. When approaching resident, she was sitting on bottom on hallway floor, legs outstretched in front of her with back against wall. Walker in reach. Resident stated she was trying to move out of her neighbor's way, when she lost her balance and fell. No new injures noted/reported, denied hitting head. Resident stated, I was testing the force of gravity once again. Neighbor stated, I don't know why she did that, I had more than enough room but she seen me, slammed herself up against the wall and slide down it. I just don't know why she did that. Vitals: BP-162/82, 78, 20, 97.6(forehead)Sp)2-94%RA, PERRLA.ROM equal per usual x 4 extremities. Assisted to stand x2 assist with FWB. No bumps/banks/discolorations of skin. Ambulated to DR with walker for breakfast without c/o pain or difficulty. No c/o voiced, will continue to monitor. PCP, AL director, Sister Mari notified. Citlalli Arana MA documented in this encounter [facility] 03-23-2024 Instructions Lyn Flaherty MA - 03/23/2024 3:10 PM EDT Finish current prescription of Eliquis 5 mg 1 tab po bid. No longer need to take this as general prescribing is 3-6 months once diagnosed with a DVT. Update office if having more pain and swelling in the leg. Keep up with the same medications. Continue exercises and stretching. documented in this encounter [facility] 03-23-2024 History of Present illness Narrative Chief Complaint Patient presents with: F/U 6 Month HPI Terrie Samano is a 89 year old female who presents here today for 6 month follow up. Resides at [facility]. Pt feels that it is easier for her to get blood work done at [facility]. Uses a walker and a Rolator, has had multiple falls. She does not do steps well, she uses a lift to get on and off the bus. No bowel, GI, or urinary issues. Follows with Urologist, Dr. Mullen. She is taking Gemtesa 75 mg daily at supper time. Finds medication is helping, has occasional accidents No longer on Ditropan. Uses [facility] depends. At night she finds it hard to get out of bed so she puts a pad and towel down on her bed. Did have an accident last night where she urinated on her mattress pad. Lipid: Tries to watch her diet. [facility] does have a set diet plan there, but you can pick other options. Does try to do some exercising such as walking. Does do some stretching. Taking Pravastatin 20 mg daily and ASA 81 mg daily. Depression/AGUILAR: Taking Zoloft 50 mg 2 pills once daily. HTN: Denies checking BP, no chest pains, dizziness, or SOB. Notes she had fallen at [facility] and when they checked her vitals her BP was significantly elevated in the 190's/100's. Was sent to ED and admitted for a day then d/c home. Taking Losartan 100 mg daily and Cardizem 120 mg daily. At her visit with Harry Laura in December he noted heart murmur was auscultated. Echocardiogram was ordered and revealed mild mitral valve stenosis with +1 tricuspid valve regurgitation. DVT/Edema - Pt saw Harry Laura SPA TECHNICIAN in Oct for Cellulitis of right leg, swelling and pain. She had US done which showed DVT. Started on Eliquis 5 mg BID and Lasix 20 mg. Pt at this time states cellulitis has since resolved and doing well. Does have some residual swelling. No pain in lower leg. Pt wears compression aurelio hose. These are put at assisted living. Pain - Chronic back pain. Takes Gabapentin 300 mg once daily. Reports hx of neck injury from 1978. Does do exercises to help with pain in her back and neck. Hx of injections by Dr. Leger. Does have intermittent numbness in her fingertips. Notes having soreness in her upper arm/elbows. At times when holding a coffee cup this will cause her to have the pain, when using both hands this helps reduce the pain. Pt is involved in a Long Life Study. She will be receiving a call tomorrow to talk to them. She reviewed with Nursing staff and was notified she has fallen 17 x in the past year. Prior to being admitted into [facility] she fell 7x. Pt felt she needed to be in Assisted Living due to increased falls and feel safer. Does feel it's better [facility] [facility]. Pt uses a walker when ambulating. Pt notes broken wrist x 2 and hip due to falls. - Covid up to date 09/21/23. Has Adv Dir/Living Will on file. RSV and Shingrix vaccine will need to be received through Pharmacy due to Medicare Insurance. Past medical history, appointments, medications, allergies reviewed. [...] Medication Sig sertraline (ZOLOFT) 50 mg tablet TAKE 2 TABLETS ONE TIME DAILY apixaban (ELIQUIS) 5 mg tab(s) Take 1 tablet by mouth two times a day. gabapentin (NEURONTIN) 300 mg capsule Take 1 capsule by mouth once daily for 180 days. gabapentin (NEURONTIN) 300 mg capsule Take 1 capsule by mouth daily at bedtime for 14 days. furosemide (LASIX) 20 mg tablet Take 1 tablet by mouth once daily for 7 days. vibegron (GEMTESA) 75 mg tablet Take 1 tablet by mouth [...] every 6 hours as needed for pain. (Patient taking differently: Take 325 mg by mouth every 6 hours as needed for pain. Patient use ES tylenol 1000 mg po BID routine) carboxymethylcellulose sodium (REFRESH OPHTHALMIC) Use 1 Drop [...] use: No Drug use: No EXAM: BP 132/84 (BP Site: Left Arm, BP Position: Sitting, BP Cuff Size: Regular Adult) Pulse 80 Resp 18 Wt 78.7 kg (173 lb 6.4 oz) BMI 32.76 kg/m General Appearance: Well appearing, alert, in no acute distress, well-hydrated, well nourished and Obese. Using a walker Lungs: Lungs clear to auscultation. No wheezing, rhonchi, rales.. Heart: RRR without murmur, gallop, or rubs. No ectopy. Extremities: Right lower leg, no skin discoloration, no cellulitis concern. Some minor edema noted. Arms sore at the elbow. Health Maintenance List Shingrix Vaccine(1 of 2) Never done RSV Vaccine(1 - 1-dose 60+ series) Never done Advance Directive Discussion due on 10/25/2023 Covid-19 Vaccine( season) due on 01/20/2024 Diabetes Screening due on 03/14/2027 DTaP,Tdap,Td Vaccine(4 - Td or Tdap) due on 11/20/2031 Bone Density Screening Completed Influenza Vaccine Completed Pneumococcal Vaccine: 65+ Completed Data reviewed Labs draw through [facility], Lipid, CMP on 03/14/24 CBC, Chol-156, Trig-65, HDL-66, LDL-77, glucose-101 ASSESSMENT/PLAN: 1. Essential hypertension - ICD9: 401.9, ICD10: I10 (primary diagnosis) - Controlled - Continue current medications - Recommend home blood pressure monitoring, to bring results to next visit - Encouraged sodium restriction, DASH or Mediterranean diet - Recommend regular aerobic exercise 2. Mixed hyperlipidemia - ICD9: 272.2, ICD10: E78.2 - Controlled - Continue current medications - Counseled on healthy diet and regular exercise 3. Anxiety with depression - ICD9: 300.4, ICD10: F41.8 - Stable on current regimen 4. Acute deep vein thrombosis (DVT) of proximal vein of right lower extremity (HCC) - ICD9: 453.41, ICD10: I82.4Y1 - Will stop Eliquis 5 mg bid, only need to be on medication for 3-6 months. - Discussed with pt to finish off her current prescription, then stop medication - D/c on medication list. 5. Lumbar radiculopathy - ICD9: 724.4, ICD10: M54.16 - Chronic - Continue to do stretches, use Tylenol and Biofreeze. - Continue current medication regimen, Gabapentin 6. Chronic back pain, unspecified back location, unspecified back pain laterality - ICD9: 724.5, 338.29, ICD10: M54.9, G89.29 - Chronic pain - Continue to do stretches, use Tylenol and Biofreeze - Continue current medication regimen, Gabapentin 7. OAB (overactive bladder) - ICD9: 596.51, ICD10: N32.81 - Stable - Continue current medication regimen. - Cont f/u with Urology, Dr. Mullen 8. Urinary incontinence, unspecified type - ICD9: 788.30, ICD10: R32 - As noted above 9. Low hemoglobin - ICD9: 285.9, ICD10: D64.9 - Possibly related to being on Eliquis. Will d/c medication and recheck levels 6 mo f/u, recheck cbc. Other labs done annually. I agree with the Chief Complaint, ROS, and Past Histories independently gathered by the clinical health support specialist and the remaining scribed note accurately describes my personal service to the patient. Medical Decision Making: Problems: Moderate: 2+ stable chronic illnesses Data: Unique test result(s) reviewed: 3+ Unique test(s) ordered: 3+ Risk: Moderate: Drug management Medical Decision Making Level: 4 - Moderate Jordan Levine MD The documentation for this note was completed by Lyn Flaherty MA acting as scribe for Jordan Levine MD. March 23, 2024 3:07 PM. Lyn Flaherty MA documented in this encounter [facility] 03-23-2024 Note HNO ID: [id number] Author: JORDAN LEVINE MD Service: ? Author Type: Physician Type: Progress Notes Filed: 03/23/2024 16:57 Note Text: Chief Complaint Patient presents with: F/U 6 Month HPI Terrie Samano is a 89 year old female who presents here today for 6 month follow up. Resides at [facility]. Pt feels that it is easier for her to get blood work done at [facility]. Uses a walker and a Rolator, has had multiple falls. She does not do steps well, she uses a lift to get on and off the bus. No bowel, GI, or urinary issues. Follows with Urologist, Dr. Mullen. She is taking Gemtesa 75 mg daily at supper time. Finds medication is helping, has occasional accidents No longer on Ditropan. Uses [facility] depends. At night she finds it hard to get out of bed so she puts a pad and towel down on her bed. Did have an accident last night where she urinated on her mattress pad. Lipid: Tries to watch her diet. [facility] does have a set diet plan there, but you can pick other options. Does try to do some exercising such as walking. Does do some stretching. Taking Pravastatin 20 mg daily and ASA 81 mg daily. Depression/AGUILAR: Taking Zoloft 50 mg 2 pills once daily. HTN: Denies checking BP, no chest pains, dizziness, or SOB. Notes she had fallen at [facility] and when they checked her vitals her BP was significantly elevated in the 190's/100's. Was sent to ED and admitted for a day then d/c home. Taking Losartan 100 mg daily and Cardizem 120 mg daily. At her visit with Harry Laura in December he noted heart murmur was auscultated. Echocardiogram was ordered and revealed mild mitral valve stenosis with +1 tricuspid valve regurgitation. DVT/Edema - Pt saw Harry Laura SPA TECHNICIAN in Oct for Cellulitis of right leg, swelling and pain. She had US done which showed DVT. Started on Eliquis 5 mg BID and Lasix 20 mg. Pt at this time states cellulitis has since resolved and doing well. Does have some residual swelling. No pain in lower leg. Pt wears compression aurelio hose. These are put at assisted living. Pain - Chronic back pain. Takes Gabapentin 300 mg once daily. Reports hx of neck injury from 1978. Does do exercises to help with pain in her back and neck. Hx of injections by Dr. Leger. Does have intermittent numbness in her fingertips. Notes having soreness in her upper arm/elbows. At times when holding a coffee cup this will cause her to have the pain, when using both hands this helps reduce the pain. Pt is involved in a Long Life Study. She will be receiving a call tomorrow to talk to them. She reviewed with Nursing staff and was notified she has fallen 17 x in the past year. Prior to being admitted into [facility] she fell 7x. Pt felt she needed to be in Assisted Living due to increased falls and feel safer. Does feel it's better at [facility]. Pt uses a walker when ambulating. Pt notes broken wrist x 2 and hip due to falls. - Covid up to date 09/21/23. Has Adv Dir/Living Will on file. RSV and Shingrix vaccine will need to be received through Pharmacy due to Medicare Insurance. Past medical history, appointments, medications, allergies reviewed. [...] Medication Sig sertraline (ZOLOFT) 50 mg tablet TAKE 2 TABLETS ONE TIME DAILY apixaban (ELIQUIS) 5 mg tab(s) Take 1 tablet by mouth two times a day. gabapentin (NEURONTIN) 300 mg capsule Take 1 capsule by mouth once daily for 180 days. gabapentin (NEURONTIN) 300 mg capsule Take 1 capsule by mouth daily at bedtime for 14 days. furosemide (LASIX) 20 mg tablet Take 1 tablet by mouth once daily for 7 days. vibegron (GEMTESA) 75 mg tablet Take 1 tablet by mouth [...] every 6 hours as needed for pain. (Patient taking differ (more content not included)... [facility] 03-13-2024 Telephone encounter Note Call to pt and notified her that fasting labs have been ordered and faxed to the number she Provided. Pt verbalized understanding. Lyn Flaherty MA [facility] 03-13-2024 Miscellaneous Notes Call to pt and notified her that fasting labs have been ordered and faxed to the number she Provided. Pt verbalized understanding. Lyn Flaherty MA Labs ordered; may fax as requested Jordan Levine MD Pt calls to report she has an appt 30 and is asking if provider wants lab work done beforehand. Pt is requesting lab orders be faxed to [facility] @ [phone]. Pt reports this would be helpful so pt would not have to go out to get labs. Sheila Salgado LPN documented in this encounter [facility] 03-13-2024 Telephone encounter Note Labs ordered; may fax as requested Jordan Levine MD [facility] 03-13-2024 Telephone encounter Note Pt calls to report she has an appt 30 and is asking if provider wants lab work done beforehand. Pt is requesting lab orders be faxed to [facility] @ [phone]. Pt reports this would be helpful so pt would not have to go out to get labs. Sheila Salgado LPN [facility] 03-08-2024 Telephone encounter Note The following approved medication requests have been transmitted electronically. Requested Prescriptions Pending Prescriptions Disp Refills sertraline (ZOLOFT) 50 mg tablet [Pharmacy Med Name: SERTRALINE HCL 50 MG Tablet] 180 tablet 3 Sig: TAKE 2 TABLETS ONE TIME DAILY Harry Laura APRN.SPA TECHNICIAN [facility] 03-08-2024 Miscellaneous Notes The following approved medication requests have been transmitted electronically. Requested Prescriptions Pending Prescriptions Disp Refills sertraline (ZOLOFT) 50 mg tablet [Pharmacy Med Name: SERTRALINE HCL 50 MG Tablet] 180 tablet 3 Sig: TAKE 2 TABLETS ONE TIME DAILY Harry Laura APRN.SPA TECHNICIAN Patient has been identified by name and date of : Yes, Provider [place] Date 03/08/2024 Time 1026AM Patient phones for refill(s): Requested Prescriptions Pending Prescriptions Disp Refills sertraline (ZOLOFT) 50 mg tablet [Pharmacy Med Name: SERTRALINE HCL 50 MG Tablet] 180 tablet 3 Sig: TAKE 2 TABLETS ONE TIME DAILY Date of last office visit in primary care: 12/31/2023 Date of next office visit in primary care: Visit date not found Please advise. Thank you. Sofya Mcclure MA. documented in this encounter [facility] 03-08-2024 Telephone encounter Note Patient has been identified by name and date of : Yes, Provider [place] Date 03/08/2024 Time 1026AM Patient phones for refill(s): Requested Prescriptions Pending Prescriptions Disp Refills sertraline (ZOLOFT) 50 mg tablet [Pharmacy Med Name: SERTRALINE HCL 50 MG Tablet] 180 tablet 3 Sig: TAKE 2 TABLETS ONE TIME DAILY Date of last office visit in primary care: 12/31/2023 Date of next office visit in primary care: Visit date not found Please advise. Thank you. Sofya Mcclure MA. [facility] 03-06-2024 Telephone encounter Note Pt called and is notified of providers message. Pt voices understanding. Valeria Vanegas RN [facility] 03-06-2024 Miscellaneous Notes Pt called and is notified of providers message. Pt voices understanding. Valeria Vanegas RN Please let her know that we have sent short term and fdc medication. The following approved medication requests have been transmitted electronically. Requested Prescriptions Signed Prescriptions Disp Refills gabapentin (NEURONTIN) 300 mg capsule 90 capsule 1 Sig: Take 1 capsule by mouth once daily for 180 days. Authorizing Provider: HARRY LAURA gabapentin (NEURONTIN) 300 mg capsule 14 capsule 0 Sig: Take 1 capsule by mouth daily at bedtime for 14 days. Authorizing Provider: HARRY LAURA APRN.SPA TECHNICIAN Call to pt, who states that [facility] did not send her refill to her in time and she only has 1 pill left of Gabapentin 300 mg. They are currently processing this to send out, pt will have no refills left on rx, last Rx: 10/14/23 #90 w/1. Asking for new Rx to be sent to [facility], takes one nightly. Asking for short term 2 week supply to go to [facility] until receives Rx from [facility]. Noted request for Eliqudeja, currently this is already in. Update pt once Rx has been sent to [facility], so she can pick out hand. Lyn Flaherty MA Terrie is calling Jordan Levine MD today with concern regarding Medication Gabapentin. She stated she has only one pill left. [facility] told her it will take 7 days at least to mail to her. Or she could pay $6.99 to have it rushed. She does not know if she can stop the medication and just wait or not. Asked patient if she wants a short term to local Pharmacy but she is asking to speak to the nurse for advice. Please call today. Patient has been identified by name and birthdate. Duration of symptoms: N/A Person calling: self Call patient at: on cell [phone] (home) [phone] (cell) Was an appointment scheduled: No Closing statement: Results or non-symptom based questions: Thank you for calling [facility], your call will be returned within the next business day. Lissa Rodriguez documented in this encounter [facility] 03-06-2024 Telephone encounter Note Please let her know that we have sent short term and watermaster medication. The following approved medication requests have been transmitted electronically. Requested Prescriptions Signed Prescriptions Disp Refills gabapentin (NEURONTIN) 300 mg capsule 90 capsule 1 Sig: Take 1 capsule by mouth once daily for 180 days. Authorizing Provider: HARRY LAURA gabapentin (NEURONTIN) 300 mg capsule 14 capsule 0 Sig: Take 1 capsule by mouth daily at bedtime for 14 days. Authorizing Provider: HARRY LAURA APRN.SPA TECHNICIAN [facility] 03-06-2024 Telephone encounter Note Call to pt, who states that [facility] did not send her refill to her in time and she only has 1 pill left of Gabapentin 300 mg. They are currently processing this to send out, pt will have no refills left on rx, last Rx: 10/14/23 #90 w/1. Asking for new Rx to be sent to [facility], takes one nightly. Asking for short term 2 week supply to go to [facility] until receives Rx from [facility]. Noted request for Eliquis, currently this is already in. Update pt once Rx has been sent to [facility], so she can pick out hand. Lyn Flaherty MA [facility] 03-06-2024 Telephone encounter Note Terrie is calling Jordan Levine MD today with concern regarding Medication Gabapentin. She stated she has only one pill left. [facility] told her it will take 7 days at least to mail to her. Or she could pay $6.99 to have it rushed. She does not know if she can stop the medication and just wait or not. Asked patient if she wants a short term to local Pharmacy but she is asking to speak to the nurse for advice. Please call today. Patient has been identified by name and birthdate. Duration of symptoms: N/A Person calling: self Call patient at: on cell [phone] (home) [phone] (cell) Was an appointment scheduled: No Closing statement: Results or non-symptom based questions: Thank you for calling [facility], your call will be returned within the next business day. Lissa Berger Pss [facility] 02-17-2024 Telephone encounter Note Noted Jordan Levine MD [facility] 02-17-2024 Miscellaneous Notes Noted Jordan Levine MD Office received fax from [facility] regarding pt and a fall report. Note: Resident rang call light at 10:00 am to alert staff she had fallen. Upon entering room, resident was sitting on her bottom in the middle of her living room floor, legs outstretched in front of her, walker in reach. Resident stated that she was picking up things off the floor so the sheet cutting operator could run the vacuum. Stated she thinks she hit the back of her head on the floor but isn't 100%. Denies any other injury. Vitals completed. Was assisted to stand x 3 assist with FWB. No bumps/banks/discolorations noted to skin. No bumps/redness to head. Ambulated around room without c/o difficulty or pain. Encouraged to call for help when needing to pick out hand things up off the floor, expressed understanding. Neuro check initiated. No needs/wants voiced, will continue to monitor. Sister Mari notified of fall. Rachelle Mahmood LPN. Lyn Flaherty MA documented in this encounter [facility] 02-17-2024 Telephone encounter Note Office received fax from [facility] regarding pt and a fall report. Note: Resident rang call light at 10:00 am to alert staff she had fallen. Upon entering room, resident was sitting on her bottom in the middle of her living room floor, legs outstretched in front of her, walker in reach. Resident stated that she was picking up things off the floor so the sheet cutting operator could run the vacuum. Stated she thinks she hit the back of her head on the floor but isn't 100%. Denies any other injury. Vitals completed. Was assisted to stand x 3 assist with FWB. No bumps/banks/discolorations noted to skin. No bumps/redness to head. Ambulated around room without c/o difficulty or pain. Encouraged to call for help when needing to pick out hand things up off the floor, expressed understanding. Neuro check initiated. No needs/wants voiced, will continue to monitor. Sister Mari notified of fall. Rachelle Mahmood LPN. Lyn Flaherty MA [facility] 01-10-2024 Miscellaneous Notes The following approved medication requests have been transmitted electronically. Requested Prescriptions Pending Prescriptions Disp Refills nystatin (MYCOSTATIN) cream 30 g 2 Sig: Apply to affected area two times a day for 14 days. Harry Laura APRN.CNP Terrie is calling Jordan Levine MD today to request medication not on her current list. Please send to [facility]. nystatin (MYCOSTATIN) cream 30 g 2 10/14/2023 10/28/2023 Sig: Apply to affected area two times a day for 14 days. Sent to pharmacy as: nystatin (MYCOSTATIN) cream Class: Normal Route: TOPICAL Order: [id number] E-Prescribing Status: Receipt confirmed by pharmacy (10/14/2023 4:59 PM EST) Patient has been identified by name and birthdate. Duration of symptoms: N/A Person calling: self Call patient at: at home [phone] (home) [phone] (cell) Was an appointment scheduled: No Closing statement: Results or non-symptom based questions: Thank you for calling [facility], your call will be returned within the next business day. Lissa Berger Pss documented in this encounter [facility] 12-31-2023 History of Present illness Narrative Chief Complaint Patient presents with: Follow Up: DVT HPI Terrie Samano is a 88 year old female who presents here today for Above Complaints. follow up for DVT Patient is here for DVT follow-up. On November 16, 2023, patient presented to my office with complaints of right leg cellulitis, swelling, pain. An ultrasound revealed a deep vein thrombosis present in the right tibioperoneal trunk. She was started on Eliquis and furosemide that day. She returned 3 days later for reevaluation. At that day she was doing okay. No chest pain. She is using AURELIO hose at this time. No blood in her stool or urine. She had a bloody nose a few times, was able to stop it as normal. Taking medication as prescribed. Had continued erythema, tenderness of the right calf. Other than being less mobile, there were no precipitating factors such as injury or surgery that preceded this finding of a DVT. During these visits, a heart murmur was auscultated. Echocardiogram was ordered and revealed mild mitral valve stenosis with +1 tricuspid valve regurgitation. Past medical history, appointments, medications, allergies reviewed. EXAM: BP 120/70 Pulse 87 Resp 16 Wt 77.9 kg (171 lb 12.8 oz) SpO2 96% BMI 32.46 kg/m General Appearance: Well appearing, alert, in no acute distress, well-hydrated, well nourished.. Lungs: Lungs clear to auscultation. No wheezing, rhonchi, rales.. Heart: Positive findings: murmur: 2/6 mid systolic low pitched soft murmur URSB and ULSB . Extremities: Pulses: 2+, Right calf is enlarged, measuring 16.5 inches ASSESSMENT/PLAN: 1. Acute deep vein thrombosis (DVT) of proximal vein of right lower extremity (HCC) - ICD9: 453.41, ICD10: I82.4Y1 (primary diagnosis) - Improvement in swelling. Continue with Eliquis as prescribed. Likely will need to be on this medication for 3 to 6 months. Has follow-up with Dr. Levine in February. Will continue to at least this time. 2. Nonrheumatic mitral valve stenosis - ICD9: 424.0, ICD10: I34.2 - Stable Harry Laura APRN.GRAYSON This note was partly generated using [employer] voice recognition dictation and may contain some misspelled or inaccurate words missed on review. documented in this encounter [facility] 12-31-2023 Note HNO ID: [id number] Author: HARRY LAURA APRN.GRAYSON Service: ? Author Type: Nurse Practitioner Type: Progress Notes Filed: 12/31/2023 14:20 Note Text: Chief Complaint Patient presents with: Follow Up: DVT HPI Terrie Samano is a 88 year old female who presents here today for Above Complaints. follow up for DVT Patient is here for DVT follow-up. On November 16, 2023, patient presented to my office with complaints of right leg cellulitis, swelling, pain. An ultrasound revealed a deep vein thrombosis present in the right tibioperoneal trunk. She was started on Eliquis and furosemide that day. She returned 3 days later for reevaluation. At that day she was doing okay. No chest pain. She is using AURELIO hose at this time. No blood in her stool or urine. She had a bloody nose a few times, was able to stop it as normal. Taking medication as prescribed. Had continued erythema, tenderness of the right calf. Other than being less mobile, there were no precipitating factors such as injury or surgery that preceded this finding of a DVT. During these visits, a heart murmur was auscultated. Echocardiogram was ordered and revealed mild mitral valve stenosis with +1 tricuspid valve regurgitation. Past medical history, appointments, medications, allergies reviewed. EXAM: BP 120/70 Pulse 87 Resp 16 Wt 77.9 kg (171 lb 12.8 oz) SpO2 96% BMI 32.46 kg/m? General Appearance: Well appearing, alert, in no acute distress, well-hydrated, well nourished.. Lungs: Lungs clear to auscultation. No wheezing, rhonchi, rales.. Heart: Positive findings: murmur: 2/6 mid systolic low pitched soft murmur URSB and ULSB . Extremities: Pulses: 2+, Right calf is enlarged, measuring 16.5 inches ASSESSMENT/PLAN: 1. Acute deep vein thrombosis (DVT) of proximal vein of right lower extremity (HCC) - ICD9: 453.41, ICD10: I82.4Y1 (primary diagnosis) - Improvement in swelling. Continue with Eliquis as prescribed. Likely will need to be on this medication for 3 to 6 months. Has follow-up with Dr. Levine in February. Will continue to at least this time. 2. Nonrheumatic mitral valve stenosis - ICD9: 424.0, ICD10: I34.2 - Stable Harry Laura APRN.SPA TECHNICIAN This note was partly generated using [employer] voice recognition dictation and may contain some misspelled or inaccurate words missed on review. [facility] 12-21-2023 Miscellaneous Notes Ok to hold for 2 days per PCP. This was responded to via fax, form faxed. Citlalli Arana Ma Form done Jordan Levine MD Received fax from [facility] asking if pt is ok to stop Eliquis for 2 days prior to procedure. Fax back at [phone]. Citlalli Arana Ma documented in this encounter [facility] [facility] Miscellaneous Notes Spoke with pt and information listed below given. Pt verbalizes understanding. Apt was changed to December. Lana Sommer LPN Left a message on patient's answering machine change of OV to 12/31/23 at 2 PM. Advised patient to call back to receive results. Please read below and advise & remind of new appt time/date. Odessa Blair MA Please let the patient know that her echocardiogram showed findings consistent with mild valvular disease. No significant change from echocardiogram in 2019. This valve disease likely is causing her murmur. Nothing further needed at this time. In addition, she is supposed to see me in 6 weeks for follow-up. This would place her around the first week of December. Scheduling made an error and scheduled her for December 03 which would be a 2-week follow-up. Please cancel December 03 appointment in [facility] scheduled for first week of December. Harry Laura APRN.GRAYSON documented in this encounter [facility] 11-19-2023 Note HNO ID: [id number] Author: HARRY LAURA APRN.CNP Service: ? Author Type: Nurse Practitioner Type: Progress Notes Filed: 11/19/2023 13:57 Note Text: Chief Complaint Patient presents with: Outpatient Dvt Tx HPI Terrie Samano is a 88 year old female who presents here today for Above Complaints. follow up for DVT. Patient is here for DVT follow-up. Patient was in my office 3 days ago for leg swelling. Her right lower calf has been swollen for 3 to 4 days prior to this visit. Ultrasound at [facility] demonstrated a DVT present in the right tibioperoneal trunk. She was started on Eliquis via starter pack. She was also started on Keflex and furosemide for potential cellulitis that she had a low-grade fever. She comes today with continued swelling of the right calf. She has been taking her Eliquis as prescribed. Nursing staff at her assisted living has been assisting with medication distribution. She has a low-grade fever today again. She also has some pain in the right calf. Denies any shortness of breath, chest pain. At our visit on Wednesday, I did auscultate a heart murmur on the left upper sternal border. Last echocardiogram was 2018. Admits that she could be more ambulatory. Has difficulty. Has history of frequent falls. Uses a rollator for ambulation. No recent surgeries or travel. Past medical history, appointments, medications, allergies reviewed. EXAM: BP 134/64 Pulse 79 Temp 37.7 ?C (99.8 ?F) (Left Tympanic) Resp 20 Wt 80 kg (176 lb 6.4 oz) SpO2 93% BMI 33.33 kg/m? General Appearance: Well appearing, alert, in no acute distress, well-hydrated, well nourished.. Lungs: Lungs clear to auscultation. No wheezing, rhonchi, rales.. Heart: RRR with 2/6 soft midsystolic murmur at LUSB Extremities: Right calf has erythema in the anterior portion of the tib-fib, some tenderness in the posterior calf. Some warmth around the erythema. Right calf is swollen, enlargement compared to the left calf. ASSESSMENT/PLAN: 1. Acute deep vein thrombosis (DVT) of proximal vein of right lower extremity (HCC) - ICD9: 453.41, ICD10: I82.4Y1 (primary diagnosis) -Continue Eliquis as prescribed. Likely will need to be on for 3 to 6 months. We will see her back in 6 weeks to reevaluate progress. - APIXABAN 5 MG TABLET 2. Cellulitis of leg, right - ICD9: 682.6, ICD10: L03.115 -Finish Keflex and Lasix as prescribed. Leg does not look more erythematous or warm than 3 days ago. 3. Heart murmur - ICD9: 785.2, ICD10: R01.1 -New finding on exam. Get updated echocardiogram. Discussed potential etiologies. - ECHO - PERFLUTREN LIPID MICROSPHERES 1.1 MG/ML INJECTION IN NS 10 ML - SODIUM CHLORIDE 0.9 % (FLUSH) INJECTION SYRINGE Harry Laura APRN.SPA TECHNICIAN RTO in 6 weeks, sooner if needed. This note was partly generated using [employer] voice recognition dictation and may contain some misspelled or inaccurate words missed on review. [facility] 11-16-2023 Note HNO ID: [id number] Author: HARRY LAURA APRN.SPA TECHNICIAN Service: ? Author Type: Nurse Practitioner Type: Progress Notes Filed: 11/16/2023 15:28 Note Text: Chief Complaint Patient presents with: right leg HPI Terrie Samano is a 88 year old female who presents here today for Above Complaints Patient lives at [facility]. Patient is here for right leg edema. Other symptoms include weeping of fluids from this area yesterday. Leg swelling has been present for 3 to 4 days per patient. Some calf tenderness. She has been using her knee-high compression stockings daily. She is borderline febrile today in the office. She denies any chest pain, shortness of breath. No dizziness. Past medical history, appointments, medications, allergies reviewed. EXAM: BP 138/84 (BP Site: Left Arm, BP Position: Sitting, BP Cuff Size: Large Adult) Pulse 84 Temp 37.7 ?C (99.9 ?F) Resp 22 Wt 80.3 kg (177 lb) BMI 33.44 kg/m? General Appearance: Well appearing, alert, in no acute distress, well-hydrated, well nourished.. Lungs: Lungs clear to auscultation. No wheezing, rhonchi, rales.. Heart: Positive findings: murmur: 2/6 mid systolic low pitched soft murmur LLSB . Extremities: Right LE has warmth, erythema and tenderness in the calf, No seeping. Measuring 18.5 inches. Left LE measuring 14 inches ASSESSMENT/PLAN: 1. Cellulitis of leg, right - ICD9: 682.6, ICD10: L03.115 (primary diagnosis) - Begin treatment with Cephalaxin (Keflex) - Follow up for recheck in three days - CEPHALEXIN 500 MG CAPSULE 2. Right leg swelling - ICD9: 729.81, ICD10: M79.89 - Rule out DVT - US LEG VEIN DVT [facility] LAB- No appointments at [facility]. Sent patient to [facility] as they had openings. Order faxed. - FUROSEMIDE 20 MG TABLET 3. Heart murmur - ICD9: 785.2, ICD10: R01.1 - new finding. Had echo in 2019. We can discuss further at follow up visit, likely will re-order echo. Harry Laura APRN.SPA TECHNICIAN RTO in 3 days This note was partly generated using [employer] voice recognition dictation and may contain some misspelled or inaccurate words missed on review. [facility] 09-21-2023 Note HNO ID: [id number] Author: Jordan Levine MD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 Relationship Specialty Start Date End Date Jordan Levine MD [address] [place] [address] PCP - General Family Medicine 05/31/19 Cutter Grinder Relationship Specialty Start Date End Date Jordan Levine MD [address] [facility] [place] [address] PCP - General Family Medicine 05/31/19 Cutter Grinder Relationship Specialty Start Date End Date Jordan Levine MD [address] [place] [address] PCP - General Family Medicine 05/31/19 Cutter Grinder Relationship Specialty Start Date End Date Jordan Levine MD [address] [facility] [place] [address] PCP - General Family Medicine 05/31/19 Cutter Grinder Relationship Specialty Start Date End Date Jordan Levine MD [address] [facility] [place] [address] PCP - General Family Medicine 05/31/19 Cutter Grinder Relationship Specialty Start Date End Date Jordan Levine MD [address] [facility] [place] [address] PCP - General Family Medicine 05/31/19 Cutter Grinder Relationship Specialty Start Date End Date Jordan Levine MD [address] [place] [address] PCP - General Family Medicine 05/31/19 Cutter Grinder Relationship Specialty Start Date End Date Jordan Levine MD [address] [facility] [place] [address] PCP - General Family Medicine 05/31/19 Cutter Grinder Relationship Specialty Start Date End Date Jordan Levine MD [address] [facility] [place] [address] PCP - General Family Medicine 05/31/19 Cutter Grinder Relationship Specialty Start Date End Date Jordan Levine MD [address] [place] [address] PCP - General Family Medicine 05/31/19 Cutter Grinder Relationship Specialty Start Date End Date Jordan Levine MD [address] [facility] [place] [address] PCP - General Family Medicine 05/31/19 Cutter Grinder Relationship Specialty Start Date End Date Jordan Levine MD [address] [facility] [place] [address] PCP - General Family Medicine 05/31/19 Cutter Grinder Relationship Specialty Start Date End Date Jordan Levine MD [address] [facility] [place] [address] PCP - General Family Medicine 05/31/19 Cutter Grinder Relationship Specialty Start Date End Date Jordan Levine MD [address] [facility] [place] [address] PCP - General Family Medicine 05/31/19 FOR [...] BE BASED ON THE PRIMARY CLINICAL RECORDS. [facility]. provides no warranty or guarantee of the accuracy or completeness of information in this document.
--- NOTE | 2024-08-15 17:55 | NURSING ---
CANCELED SQUAD, SISTER COMING TO GET HER. ETA IS 1.5 HRS
== END 2024-08-15 19:11 | disposition home or self-care (01) ==
LOC: ED 16:21
PROVIDERS: Emergency Provider Emergency Medicine; PCP Family Medicine; Visit Provider Emergency Medicine
DX: S41.112A Laceration without foreign body of left upper arm, initial encounter (principal); S01.112A Laceration without foreign body of left eyelid and periocular area, initial encounter; W19.XXXA Unspecified fall, initial encounter; Y92.129 Unspecified place in nursing home as the place of occurrence of the external cause; I10 Essential (primary) hypertension; F32.A Depression, unspecified; F41.9 Anxiety disorder, unspecified; E66.9 Obesity, unspecified; E78.5 Hyperlipidemia, unspecified; D64.9 Anemia, unspecified; M19.90 Unspecified osteoarthritis, unspecified site; M79.7 Fibromyalgia; M48.00 Spinal stenosis, site unspecified; G62.9 Polyneuropathy, unspecified; Z66 Do not resuscitate; Z79.82 Long term (current) use of aspirin; Z91.81 History of falling; Z79.899 Other long term (current) drug therapy
CPT/HCPCS: 12001; 70450; 99285

== ENCOUNTER → 2024-09-25 | Outpatient (REF) | payer MEDICARE, OTHER, SELFPAY ==
[2024-09-25 08:54] LABS: Absolute Lymphocyte Count 1.68 X10^3/uL (0.83-4.51); Absolute Neutrophil Count 3.1 X10^3/uL (2.0-7.7); Basophil# 0.07 X10^3/uL; Basophil% 1.2 % (0-1); Eosinophil# 0.34 X10^3/uL; Eosinophils% 5.9 % (0-5); Hematocrit 32.8 % (37-47); Hemoglobin 9.9 g/dL (12.0-15.0); Lymphocyte # 1.68 X10^3/ul (0.83-4.51); Lymphocyte % 29.4 % (19-41); Mean Corp Hgb Conc 30.2 g/dL (32-36); Mean Corpuscular Hgb 26.8 pg (27.0-32.0); Mean Corpuscular Volume 88.9 fL (81-99); Mean Platelet Vol. 10.8 fl (6.2-12.0); Monocyte# 0.54 X10^3/uL; Monocyte% 9.4 % (0-10); NRBC Flagged by Analyzer 0 % (0-5); Neutrophil # 3.07 X10^3/uL (2.7-7.7); Neutrophil % 53.8 % (47-70); Platelet Count 235 K/mm3 (150-450); RBC Distribution Width CV 16.1 % (11.6-14.6); RBC Distribution Width SD 52.2 fl (35.1-43.9); Red Blood Count 3.69 M/mm3 (4.2-5.4); White Blood Count 5.7 K/mm3 (4.4-11.0)
[2024-09-25 09:15] LABS: ALB/GLOB Ratio 0.8 RATIO (0.9-2.4); AST(SGOT) 45 U/L (15-37); Alanine Aminotransfer ALT/SGPT 37 U/L (13-56); Albumin, Serum 3.3 g/dL (3.2-5.0); Alkaline Phosphatase 113 U/L (45-117); Anion Gap 6 (5-15); BUN 22 mg/dL (7-18); BUN/Creat Ratio 38.5 RATIO (10-20); Calcium,Total 10.5 mg/dL (8.5-10.1); Chloride 111 mmol/L (98-107); Cholesterol 129 mg/dL (200); Creatinine, Serum 0.57 mg/dL (0.55-1.02); EST Glomerular Filtration Rate 106 mL/min (>60); Est Glom Filt Rate - Afr Amer 128 mL/min (>60); Globulin 3.9 g/dL (2.2-4.2); Glucose 101 mg/dL (74-106); High Density Lipoprotein 66 mg/dL; Potassium 3.8 mmol/L (3.5-5.1); Protein, Total 7.2 g/dL (6.4-8.2); Sodium Level 142 mmol/L (136-145); Triglycerides 51 mg/dL; Very Low Density Lipoprotein 10 mg/dL (5-40)
== END ==
LOC: OLS.SWAL 04:00
PROVIDERS: PCP Family Medicine; Referring Provider Family Medicine; Visit Provider Family Medicine
DX: I10 Essential (primary) hypertension (principal); D64.9 Anemia, unspecified
CPT/HCPCS: 36415; 80053; 80061; 85025

== ENCOUNTER 2024-09-30 15:00 | Emergency (ER) | payer MEDICARE, OTHER, SELFPAY ==
[2024-09-30 15:01] VITALS: BP 132/58; PULSE 81; RESP 16; TEMP 36.9; O2SAT 94; BMI 32.7
[2024-09-30] MEDS: Lidocaine 1% /Epi 1:100 (20ml) 20 ML Vial 3 ML INFILT (15:22)
--- NOTE | 2024-09-30 15:26 | CT_ITS ---
STUDY: CT BRAIN WITHOUT CONTRAST REASON FOR EXAM: Female, 89 years old. fall RADIATION DOSAGE (If Supplied By Facility): CTDIvol = ( 44.99 ) mGy, DLP = ( 796.11 ) mGycm TECHNIQUE: Transaxial CT imaging of the brain was performed without administration of intravenous contrast material. Individualized dose optimization techniques were used for this CT. COMPARISON: No relevant priors. FINDINGS: Normal soft tissue structures. Normal calvarium. Slightly prominent ventricles and extra-axial spaces with mild atrophy. Bilateral white matter microangiopathic ischemic changes of the cerebral hemispheres. Normal basal ganglia and thalami. Normal brainstem. Normal cerebellum. There is no intracranial hemorrhage. There are no findings of an acute ischemic infarction. Normal visualized paranasal sinuses. CT/Brain/Head without Contrast IMPRESSION: Age-related changes of the brain. Electronically Signed: Ady Dye DO at 16:51 EST ,
--- NOTE | 2024-09-30 15:26 | CT_ITS ---
STUDY: CT CERVICAL SPINE WITHOUT CONTRAST REASON FOR EXAM: Female, 89 years old. fall RADIATION DOSAGE (If Supplied By Facility): CTDIvol = ( 23.98 ) mGy, DLP = ( 422.24 ) mGycm TECHNIQUE: High resolution transaxial imaging was performed without contrast material. Sagittal and coronal images were reconstructed. Individualized dose optimization techniques were used for this CT. COMPARISON: None FINDINGS: Normal craniovertebral junction. Normal anterior atlantoaxial articulation. Normal odontoid process. Normal cervical lordosis. Normal vertebral bodies and posterior osseous elements. C2-3: Normal endplates. Normal disc height and morphology. Normal central canal. Facet hypertrophy lightly narrowing the left intervertebral neural foramen. C3-4: Normal endplates. Minimal spondylolisthesis. Normal disc height and morphology. Normal central canal. Facet hypertrophy and uncovertebral spurs narrowing the intervertebral neuroforamina. C4-5: Mild spurring at the endplates. Normal disc height with vacuum phenomenon. Normal central canal. Facet hypertrophy and uncovertebral spurs narrowing the intervertebral neuroforamina. C5-6: Degenerative spurring at the endplates. Narrowed disc height with vacuum phenomenon. Posterior spurring protruding into the central canal. Uncovertebral spurs narrowing the intervertebral neuroforamina, right more than left. C6-7: Degenerative spurring at the endplates. Narrowed disc height. Normal central canal. Uncovertebral spurs slightly narrowing the intervertebral neuroforamina. C7-T1: Degenerative spurring at the endplates. Narrowed disc height with vacuum phenomenon. Normal central canal. Uncovertebral spurs slightly narrowing the intervertebral neuroforamina. Normal visualized soft tissue structures. CT/Spine Cervical without Contras IMPRESSION: Degenerative changes of the cervical spine. Electronically Signed: Ady Dye DO at 18:12 [facility] Reading Location ID and State: [facility] / [place] Tel [phone], Service support ,
--- NOTE | 2024-09-30 15:29 | EDS_ITS ---
HPI <MEHUL Gutierrez - Last Filed: 09/30/24 16:58> History of Present Illness Chief Complaint: Laceration Narrative Narrative: Patient is an 89-year-old female with history of hypertension hyperlipidemia, who currently is a DNR CC, living in a longterm facility presented to the emergency department after mechanical fall. Patient she was sitting in her chair when the phone rang, she went to reach for her phone falling out striking the back lateral part of her head. Patient does have a 1 cm laceration peer denies any LOC. Patient is currently not on any blood thinning medicine. Patient does have a history of falls. Tetanus vaccination unknown. PFS <MEHUL Gutierrez - Last Filed: 09/30/24 16:58> [facility] Medical History Obesity Frequent falls Anxiety and depression Chronic anemia Hyperlipidemia Osteoarthritis HTN (hypertension) Fibromyalgia Spinal stenosis Macular degeneration Urine incontinence Fall Home Medications ?Medication ?Instructions ?Recorded ?Last Taken ?Type aspirin 81 mg tablet,delayed 81 mg PO DAILY@0800 01/15/17 Unknown History release calcium 600 mg (as 1 ea PO DAILY 01/15/17 Unknown History carbonate)-vitamin D3 20 mcg (800 unit) tablet (Caltrate with Vitamin D3) gabapentin 100 mg capsule 300 mg PO DAILY neuropathy 01/15/17 06/13/18 06:00 History (Neurontin) [id number]-jvwdksxud-zse C-Mn 500 2 ea PO DAILY 01/15/17 Unknown History mg-400 mg capsule meloxicam 15 mg tablet (Mobic) 15 mg PO DAILY 01/15/17 Unknown History tdggsqhi-kqtk-smon 8 mg-folic 400 1 ea PO DAILY 01/15/17 Unknown History mcg-K 50 mcg-lutein 300 mcg tablet (Centrum Silver Women) pravastatin 20 mg tablet 20 mg PO QHS 01/15/17 Unknown History sertraline 50 mg tablet 100 mg PO DAILY 01/15/17 Unknown History vit C 250 mg-vit E 90 mg-zinc 40 2 ea PO DAILY 10/14/17 Unknown History mg-copper 1 tk-gbornc-iwnzjd capsule (PreserVision AREDS-2) docusate sodium 100 mg capsule 100 mg PO BID #30 caps 06/16/18 Unknown Rx magnesium hydroxide 400 mg/5 mL 30 ml PO DAILY PRN PRN 06/16/18 Unknown Rx oral suspension Constipation ##14 diltiazem HCl 120 mg 120 mg PO DAILY 11/20/21 Unknown History capsule,extended release 24 hr losartan 100 mg tablet 100 mg PO DAILY 01/04/23 Unknown History nystatin 100,000 unit/gram topical 1 unit topical DAILY 01/04/23 Unknown History cream oxybutynin chloride 10 mg 10 mg PO DAILY 01/04/23 Unknown History tablet,extended release 24 hr Allergy/AdvReac Type Severity Reaction Status Date / Time iodine Allergy Rash Verified 09/30/24 15:01 COUGH SYRUP W/IODINE Allergy Rash Uncoded 01/03/23 22:16 Family History Mother Colon cancer Maternal family history of colon cancer with metastatic disease to the liver Father Prostate cancer Paternal family history of prostate cancer with metastatic disease to the bones. Sister Colon cancer Breast cancer Surgical History Status post hip surgery S/P carpal tunnel release S/P cataract extraction History of eye surgery History of hysterectomy History of appendectomy History of tonsillectomy and adenoidectomy Social History housing: assisted living facility Smoking Status: Never smoker alcohol intake: never substance use type: does not use ROS <MEHUL Gutierrez - Last Filed: 09/30/24 16:58> ROS ED ROS Narrative Constitutional: Negative for fever, chills, weight loss, weakness Eyes: Negative for vision loss, vision change, double vision ENT: Negative for any sore throat, ear pain, congestion Cardiovascular: Negative for any chest pain, tightness, palpitations Respiratory: Negative for any cough, sputum production, hemoptysis, dyspnea, dyspnea on exertion, orthopnea Gastrointestinal: Negative for any abdominal pain, nausea, vomiting, diarrhea, constipation, blood in stool, blood in vomit : Negative for any urinary frequency, dysuria, retention, blood in urine Muscle skeletal: Negative for any neck pain, back pain Neurological: Negative for any headache, syncope, dizziness Skin: Negative for any rashes, itching, abrasions. Positive for laceration to the occiput Psychiatric: Negative for any depression, anxiety, stress, suicidal ideation, homicidal ideation Hematologic: Negative for any excessive bruising, easy bleeding EXAM <MEHUL Gutierrez - Last Filed: 09/30/24 16:58> Physical Exam Narrative Exam Narrative: Vital signs reviewed. Patient's acting appropriate, in no distress. HEET: Head normocephalic atraumatic, TMs clear bilaterally. Posterior pharynx is clear, moist mucous membranes. Nares clear bilaterally. Pupils are equal round reactive to light. Negative for any hemotympanum or septal hematoma. Patient does have a 1 cm laceration to the occiput, bleeding controlled. Neck: Supple with no lymphadenopathy or tenderness. No signs of meningismus. Cardiac: Regular rate and rhythm no murmurs gallops or rubs, equal peripheral pulses bilaterally. Respiratory: Lungs clear to auscultation bilaterally. No chest tenderness. Abdomen: Soft, nontender, nondistended. No abdominal bruit or pulsatile masses. No hepatosplenomegaly Extremities: No peripheral edema, no signs of gross trauma or deformity. Active full range of motion of all extremities. Neuro: Cranial nerves II through XII intact, no focal neurological deficits. Skin: Clean dry and intact with no rash, purpura, petechiae, vesicles or pustules. Backs/flank: No CVA tenderness, no midline spinal tenderness, no deformity. Psych: Normal mood and affect. No SI, HI or acute psychosis. Const Vital Signs: 09/30/24 15:01 09/30/24 17:00 Temperature 98.4 F 98.1 F Temperature Source Oral Pulse Rate 81 87 Respiratory Rate 16 16 Blood Pressure 132/58 H 111/60 Blood Pressure Mean 82 77 Pulse Ox 94 97 Oxygen Delivery Method Room Air Positive well nourished and well developed General Appearance ED: well developed <Dr. Torrey Helms DO - Last Filed: 10/01/24 01:40> Physical Exam Const Vital Signs: 09/30/24 15:01 09/30/24 17:00 Temperature 98.4 F 98.1 F Temperature Source Oral Pulse Rate 81 87 Respiratory Rate 16 16 Blood Pressure 132/58 H 111/60 Blood Pressure Mean 82 77 Pulse Ox 94 97 Oxygen Delivery Method Room Air MDM <MEHUL Gutierrez - Last Filed: 09/30/24 16:58> MDM Radiography Diagnostic Testing: Clinical Impression(s) from Imaging Studies Brain CT 09/30/24 15:26 IMPRESSION: Age-related changes of the brain. Electronically Signed: Ady Dye DO at 16:51 EST , Cervical Spine CT 09/30/24 15:26 IMPRESSION: Degenerative changes of the cervical spine. Electronically Signed: Ady Dye DO at 18:12 EST , Treatment and Re-Evaluation :: Differential diagnosis includes however is not limited to: Concussion, intracranial bleeding, skull fracture, simple scalp laceration Patient appears generally well, vital signs are stable, patient is nontoxic- appearing. Presenting to the emergency department complaints of mechanical fall striking the back of her head. Secondary the patient's age, CT scan of the brain, cervical spine will be obtained. I will need to place tang to the laceration to the scalp. All radiologic examinations were read, reviewed by the emergency department attending. From these reads, a plan of care will be put in place. Upon cleansing the wound, using lidocaine with epinephrine, the wound is 1.5 cm in length. The edges approximated nicely. Sterile gloves, sterile drapes were used. I was able to irrigate with 200 cc normal saline. 3 simple tang were placed, edges approximated nicely. Patient currently waiting on the CT scan of the brain as well as her cervical spine. Patient is continually acting appropriate. CT scan of the brain, cervical spine were gross unremarkable. At this time, patient will have these tang removed in 1 week. She will continue to ice the elevated area. She would not get up until she gets help at the nursing facility. Patient is agreeable with this plan. All questions were answered, stable for discharge. <Dr. Torrey Helms, DO - Last Filed: 10/01/24 01:40> [facility] Narrative Medical decision making narrative: Supervisory Physician Note Patient was seen and examined with the Advanced Practice Provider. Nursing notes and vital signs have been reviewed. Pertinent old records have been reviewed. I agree with the essential elements of the ADAM's history, physical exam, assessment, and plan. The differential diagnosis and management options were discussed with the ADAM. I participated in determining and agree with the management, procedures, final impression and disposition as documented. See changes noted by me. Please see addendum or separate note for any additional details. 89-year-old female living in a care facility presents for scalp laceration after mechanical fall. Denies LOC. Not on blood thinners. History of falls. Denies any fever, chills, shortness of breath, chest pain abdominal pain, nausea, vomiting, dysuria. States it was purely mechanical fall. Gen: A&O x3, NAD Head: Normocephalic, laceration to the right scalp Eyes: No sclera icterus, conjunctiva clear, PERRL, EOMI ENT: TMs clear BL, moist mucous membranes, no swelling/lacerations/blood in the mouth or the nares, No nasal septal hematoma, no facial tenderness Neck: Trachea midline, No JVD, Nontender CV: RRR, no murmurs, no chest wall TTP Resp: Lungs CTA BL, no w/r/c GI: Abd soft, non-distended, non-tender, no r/r/g Musc: Moves all extremities, no deformity, no spinal TTP, no kiki step-offs Skin: Warm, dry, intact Neuro: Alert, oriented, grossly intact, sensation intact, GCS 15 Psych: Cooperative, appropriate mood and affect CT head and cervical spine ordered. Laceration was cleaned and repaired by ADAM, see separate procedure note. On chart review, patient was seen on 11/20/2021 for a laceration at that time was given tetanus. Patient is up-to-date on tetanus. CT head and cervical spine without acute traumatic injury. Patient discharged back to care facility. Impression: 1. Closed head injury 2. Scalp laceration, repaired 3. Mechanical fall Radiography Diagnostic Testing: Clinical Impression(s) from Imaging Studies Brain CT 09/30/24 15:26 IMPRESSION: Age-related changes of the brain. Electronically Signed: Ady Dye DO at 16:51 EST , Cervical Spine CT 09/30/24 15:26 IMPRESSION: Degenerative changes of the cervical spine. Electronically Signed: Ady DO Hardik at 18:12 EST Reading Location ID and State: [facility] / [place] Tel [phone], Service support , Discharge Plan Triage Chief Complaint: Laceration ED Midlevel Provider: Artur Kerr ED Provider: Torrey Helms Dx/Rx/DC Orders Clinical Impression: Fall, Laceration of scalp, Head injury Instructions: Concussion Dc, ED Head Injury (Adult), ED Laceration Scalp Stitches or [place], ED Laceration Minimize Scars Prescriptions: No Action meloxicam [Mobic] 15 MG tablet 15 mg PO DAILY aspirin 81 MG tablet 81 mg PO DAILY@0800 pravastatin 20 MG tablet 20 mg PO QHS gabapentin [Neurontin] 100 MG capsule 300 mg PO DAILY sertraline 50 MG tablet 100 mg PO DAILY rcrujcnqtss-fajoskhjx-cno C-Mn 1 EACH capsule 2 ea PO DAILY Centrum Silver Women 1 EACH tablet 1 ea PO DAILY calcium carbonate-vitamin D3 [Caltrate with Vitamin D3] 1 EACH tablet 1 ea PO DAILY PreserVision AREDS-2 1 EACH capsule 2 ea PO DAILY magnesium hydroxide 30 ML suspension 30 ml PO DAILY PRN PRN (Reason: Constipation) Qty: 14 0RF docusate sodium 100 MG capsule 100 mg PO BID Qty: 30 0RF diltiazem HCl 120 mg capsule,extended release 24hr 120 mg PO DAILY oxybutynin chloride 10 mg Tablet Extended Release 24hr 10 mg PO DAILY nystatin 100,000 unit/gram cream 1 unit TOPICAL DAILY losartan 100 mg tablet 100 mg PO DAILY Primary Care Provider: Mati Landon Referrals: Mati Landon MD [Primary Care Provider] - Activity Restrictions/Additional Instructions: You have 3 tang, these need to be removed in 1 week from today. Make sure that you ice. If you do need to get up make sure that you have assistance. Your CT scan of the brain and neck was negative. Print Language: Cameroonian Disposition Disposition: Home, Self Care Discharge Date/Time: 09/30/24 19:04
[2024-09-30 17:00] VITALS: BP 111/60; PULSE 87; RESP 16; TEMP 36.7; O2SAT 97
--- NOTE | 2024-09-30 18:19 | ED.RN ---
REPORT CALLED TO PARAS AT [facility]
== END 2024-09-30 19:04 | disposition home or self-care (01) ==
PROVIDERS: Emergency Provider Surgery; PCP Family Medicine; Visit Provider Surgery
DX: S01.01XA Laceration without foreign body of scalp, initial encounter (principal); W07.XXXA Fall from chair, initial encounter; Z91.81 History of falling; Y92.099 Unspecified place in other non-institutional residence as the place of occurrence of the external cause; I10 Essential (primary) hypertension; E78.5 Hyperlipidemia, unspecified; E66.9 Obesity, unspecified; F41.9 Anxiety disorder, unspecified; F32.A Depression, unspecified; M19.90 Unspecified osteoarthritis, unspecified site; M79.7 Fibromyalgia; M48.00 Spinal stenosis, site unspecified; Z66 Do not resuscitate; Z79.82 Long term (current) use of aspirin; Z79.899 Other long term (current) drug therapy
CPT/HCPCS: 12001; 70450; 72125; 99284

== ENCOUNTER → 2024-11-06 | Outpatient (REF) | payer MEDICARE, OTHER, SELFPAY ==
[2024-11-06 09:29] LABS: Iron 47 ug/dL (50-170); Iron Binding Capacity,Total 340 ug/dL (250-450)
[2024-11-06 09:32] LABS: Hematocrit 35.9 % (37-47); Mean Corp Hgb Conc 30.6 g/dL (32-36); Mean Corpuscular Hgb 28.4 pg (27.0-32.0); Mean Corpuscular Volume 92.8 fL (81-99); Mean Platelet Vol. 10.9 fl (6.2-12.0); Platelet Count 206 K/mm3 (150-450); RBC Distribution Width CV 17.8 % (11.6-14.6); RBC Distribution Width SD 61.4 fl (35.1-43.9); Red Blood Count 3.87 M/mm3 (4.2-5.4); White Blood Count 6.4 K/mm3 (4.4-11.0)
== END ==
LOC: OLS.SWAL 05:00
PROVIDERS: PCP Family Medicine; Visit Provider Family Medicine
DX: D64.9 Anemia, unspecified (principal)
CPT/HCPCS: 36415; 83540; 83550; 85027

== ENCOUNTER 2025-04-02 17:15 | Emergency (ER) | payer MEDICARE, OTHER, SELFPAY ==
[2025-04-02 17:17] VITALS: BP 124/56; PULSE 72; RESP 16; TEMP 37; O2SAT 88; BMI 32.1
[2025-04-02 17:23] VITALS: PULSE 72; O2SAT 93
--- NOTE | 2025-04-02 17:44 | EX.ED.GENINJ ---
HPI History of Present Illness Chief Complaint: Laceration [facility] Medical History (Updated 04/02/25 @ 17:26 by Melisa Holt) Primary hyperparathyroidism Anemia, unspecified Other specified anxiety disorders Unspecified urinary incontinence Overactive bladder Radiculopathy, lumbar region Acute embolism and thrombosis of unspecified deep veins of right proximal lower extremity Depression Mixed hyperlipidemia Obesity Frequent falls Anxiety and depression Chronic anemia Hyperlipidemia Osteoarthritis HTN (hypertension) Fibromyalgia Spinal stenosis Macular degeneration Urine incontinence Fall Home Medications ?Medication ?Instructions ?Recorded ?Last Taken ?Type aspirin 81 mg tablet,delayed 81 mg PO DAILY@0800 01/15/17 Unknown History release calcium 600 mg (as 1 ea PO DAILY 01/15/17 Unknown History carbonate)-vitamin D3 20 mcg (800 unit) tablet (Caltrate with Vitamin D3) pravastatin 20 mg tablet 20 mg PO QHS 01/15/17 Unknown History sertraline 50 mg tablet 50 mg PO DAILY 01/15/17 Unknown History vit C 250 mg-vit E 90 mg-zinc 40 1 tab PO DAILY 10/14/17 Unknown History mg-copper 1 uv-fjsavm-wjbrzf capsule (PreserVision AREDS-2) magnesium hydroxide 400 mg/5 mL 30 ml PO DAILY PRN PRN 06/16/18 Unknown Rx oral suspension Constipation ##14 diltiazem HCl 120 mg 120 mg PO DAILY 11/20/21 Unknown History capsule,extended release 24 hr losartan 100 mg tablet 100 mg PO DAILY 01/04/23 Unknown History acetaminophen 325 mg capsule 650 mg PO Q6H PRN fever or pain 04/02/25 Unknown History benzonatate 100 mg capsule 100 mg PO Q8H PRN cough 04/02/25 Unknown History carboxymethylcellulose sodium 0.5 1 drp EACH EYE DAILY 04/02/25 Unknown History % eye drops (Lubricant Eye Drops) gabapentin 300 mg capsule 300 mg PO DAILY 04/02/25 Unknown History loperamide 2 mg capsule 2 mg PO Q6H PRN loose stool 04/02/25 Unknown History (Anti-Diarrheal (loperamide)) vibegron 75 mg tablet (Gemtesa) 75 mg PO DAILY 04/02/25 Unknown History Allergy/AdvReac Type Severity Reaction Status Date / Time guaifenesin Allergy Intermediate Rash Verified 04/02/25 17:20 iodine Allergy Rash Verified 04/02/25 17:20 COUGH SYRUP W/IODINE Allergy Rash Uncoded 01/03/23 22:16 Family History Mother Colon cancer Maternal family history of colon cancer with metastatic disease to the liver Father Prostate cancer Paternal family history of prostate cancer with metastatic disease to the bones. Sister Colon cancer Breast cancer Surgical History Status post hip surgery S/P carpal tunnel release S/P cataract extraction History of eye surgery History of hysterectomy History of appendectomy History of tonsillectomy and adenoidectomy Social History housing: assisted living facility Smoking Status: Never smoker alcohol intake: never substance use type: does not use EXAM Physical Exam Const Vital Signs: 04/02/25 17:17 04/02/25 17:23 04/02/25 17:24 Temperature 98.6 F Temperature Source Oral Pulse Rate 72 72 Respiratory Rate 16 Respiratory Effort Non-Labored Short of Breath Respiratory Depth Normal Respiratory Pattern Normal Blood Pressure 124/56 H Blood Pressure Mean 78 Pulse Ox 88 93 Oxygen Delivery Method Room Air Nasal Cannula Oxygen Flow Rate (L/min) 2 04/02/25 18:28 04/02/25 18:29 Temperature Temperature Source Pulse Rate 72 Respiratory Rate 16 Respiratory Effort Respiratory Depth Respiratory Pattern Blood Pressure 124/56 H Blood Pressure Mean 78 Pulse Ox 90 92 Oxygen Delivery Method Room Air Nasal Cannula Oxygen Flow Rate (L/min) 2 MDM MDM MDM Narrative Medical decision making narrative: HISTORY OF PRESENT ILLNESS: Chief complaint: Fall, head laceration 89-year-old female history of debility and hypertension, hyperlipidemia, history frequent falls, DNR CC presents after fall today. Notes she had 2 falls today. Notes laceration to left scalp. REVIEW OF SYSTEMS: Pertinent positives: scalp laceration Fall, head trauma, Pertinent negatives: Chest pain, shortness of breath PHYSICAL EXAM: Nursing triage notes reviewed, Vital signs reviewed primary Survey Airway: Intact Breathing: Bilateral breath sounds Circulation: Palpable bilateral femorals, Palpable bilateral radial, Palpable bilateral DP and Palpable bilateral PT Disability / Spine precautions GCS Score: Eye Openin Verbal Response: 5 Motor Response: 6 Secondary Survey Constitutional: Please see MDM Head: Atraumatic, Midface stable, NO jaw malocclusion, No Cephalohematoma, and No Lacerations noted Eye: Pupils equal round and reactive to light, Extraocular muscles intact and No periorbital ecchymosis or stepoff, no evidence of entrapment ENT: Oropharynx clear, no lacerations, no hemotympanum, no raccoon eyes or palacio sign Cervical spine / Neck: No cervical spine bony tenderness, crepitance, or stepoff deformity Trachea midline Lungs: Clear to auscultation, No asymmetric rise and No crepitus, no flail chest Cardiac: Regular rate and rhythm and No murmurs Abdomen: Soft, Nontender and No rebound Pelvis: Pelvis stable to compression : No evidence of genital injury Back: No midline bony tenderness to thoracic/lumbar/sacral spines Neuro: At baseline, intact strength and sensation in bilateral upper and lower extremities. 2+ patellar reflexes bilaterally. Extremities: NO gross Deformities Psych: Normal affect Nursing triage notes reviewed, Vital signs reviewed MEDICAL DECISION MAKING: Chief Complaint: please see HPI External records reviewed: Reviewed prior imaging studies, reviewed medications, no blood thinners noted Factors affecting care: As per [facility] Social determinants of health: care home patient History obtained from others: n EMS Consults: none [facility] Narrative: Patient was initially hemodynamically stable, afebrile and nontoxic-appearing. Primary secondary trauma surveys concerning for intracranial cervical spine abnormalities I obtained a CT scan of the head, CT of the cervical spine. Applied let to the open wound and ordered lidocaine ALL IMAGES (IF OBTAINED) HAVE BEEN PERSONALLY REVIEWED AND INTERPRETED BY MYSELF. CT scan head, cervical spine negative for intracranial or cervical spine abnormalities. Laceration was repaired with 6 tang with close approximation. Please see below procedure note. Procedure: Laceration repair. The procedure was performed by myself. Indication: Wound repair Risks and benefits: risks, benefits and alternatives were discussed Consent: Consent was obtained. Wound Details: Linear laceration noted to the posterior occiput approximately 3 cm in length, 1 mm in depth, no galea involvement noted Anesthesia: Topical let, 1% lidocaine Wound prep: Patient was prepped and draped in the usual sterile fashion. Tetanus: Was updated here today Irrigation Solution: Saline Wound Preparation: chlorhexidine The wound was explored to its base in a bloodless field. Procedure Description: Placed sick tang with close approximation Patient tolerated the procedure well with no immediate complications The patient and/or family, caregivers express understanding. The patient and/or family, caregivers agrees with the plan. Shared decision making: I will have a discussion with the patient and or visitors regarding risk/benefits of further testing or admission. They will be made aware of of the risk/benefits inherent in this decision they will be given the opportunity to voice understanding. Total critical care time today provided was at least 0 minutes. This excludes separately billable procedures. Critical care time (if documented) is secondary to the patient having high probability of clinically significant/life threatening deterioration in the patient's condition which required my urgent intervention. Impression: 1. Fall 2. Head laceration 3. Concussion Dispo: Discharge home This note was generated with [employer] dictation software. It may contain incorrect words, spelling, and punctuation that were not noted in review of the chart prior to signing. Radiography Diagnostic Testing: Clinical Impression(s) from Imaging Studies Brain CT 04/02/25 18:14 IMPRESSION: 1. No acute intracranial finding. 2. Small posterior left scalp hematoma and laceration. Reading Location: [facility] Cervical Spine CT 04/02/25 18:14 IMPRESSION: NO ACUTE CERVICAL FRACTURE. DEGENERATIVE CHANGES. Reading Location: [facility] Discharge Plan Triage Chief Complaint: Laceration Other Complaint: Fall ED Provider: Abdelrahman Camacho Dx/Rx/DC Orders Prescriptions: No Action aspirin 81 MG tablet 81 mg PO DAILY@0800 pravastatin 20 MG tablet 20 mg PO QHS sertraline 50 MG tablet 50 mg PO DAILY calcium carbonate-vitamin D3 [Caltrate with Vitamin D3] 1 EACH tablet 1 ea PO DAILY PreserVision AREDS-2 1 EACH capsule 1 tab PO DAILY magnesium hydroxide 30 ML suspension 30 ml PO DAILY PRN PRN (Reason: Constipation) Qty: 14 0RF diltiazem HCl 120 mg capsule,extended release 24hr 120 mg PO DAILY losartan 100 mg tablet 100 mg PO DAILY acetaminophen 325 mg capsule 650 mg PO Q6H PRN (Reason: fever or pain) benzonatate 100 mg capsule 100 mg PO Q8H PRN (Reason: cough) gabapentin 300 mg capsule 300 mg PO DAILY loperamide [Anti-Diarrheal (loperamide)] 2 mg capsule 2 mg PO Q6H PRN (Reason: loose stool) carboxymethylcellulose sodium [Lubricant Eye Drops] 0.5 % drops 1 drp EACH EYE DAILY Gemtesa 75 mg tablet 75 mg PO DAILY Primary Care Provider: Mati Landon Referrals: Mati Landon MD [Primary Care Provider] - Print Language: Icelandic
--- NOTE | 2025-04-02 18:14 | CT_ITS ---
EXAM: BRAIN/HEAD WITHOUT CONTRAST CLINICAL HISTORY: 89 y/o F with FALL, HEAD TRAUMA. COMPARISON: None. TECHNIQUE: Routine CT imaging of the head without IV contrast. Additional multiplanar reformats were obtained. Dose reduction techniques were used including intermediate exposure control (AEC),iterative reconstruction technique, and/or mA and/or KV dose adjustments based on patient's size. FINDINGS: Moderate generalized cerebral volume loss with concordant prominence of the ventricles and subarachnoid spaces. Moderate patchy supratentorial white matter hypodensities. 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 No acute intracranial hemorrhage or herniation. Prior scleral banding. Mucosal thickening of the bilateral maxillary sinuses. Chronic right inferior orbital wall fracture deformity. Trace secretions within the sphenoid sinus. No acute calvarial fracture. Small posterior left scalp hematoma and laceration. CT/Brain/Head without Contrast IMPRESSION: 1. No acute intracranial finding. 2. Small posterior left scalp hematoma and laceration. Reading Location: [id number]
--- NOTE | 2025-04-02 18:14 | CT_ITS ---
PROCEDURE: SPINE CERVICAL WITHOUT CONTRAS 04/02/2025 REASON FOR EXAM: FALL, NECK PAIN TECHNIQUE: Cervical spine CT without contrast. Coronal and Sagittal reconstruction series were provided. One or more dose reduction techniques were used (e.g., Automated exposure control, adjustment of the mA and/or kV according to patient size, use of iterative reconstruction technique RADIATION DOSE SUMMARY: CTDlvol: 20 mGy DLP: 400 mGycm COMPARISON: CT C-spine 09/30/2024. FINDINGS: Alignment: Mild exaggeration of the normal cervical lordosis. No traumatic listhesis. Vertebrae: No acute fracture. Mild multilevel chronic vertebral body height loss. Multilevel degenerative disc disease, posterior disc osteophyte complexes and facet and uncovertebral hypertrophy resulting in mild central and neural foraminal stenosis. Soft Tissues: No prevertebral hematoma. Calcific plaque of the bilateral cervical carotid arteries and visualized aortic arch. CT/Spine Cervical without Contras IMPRESSION: NO ACUTE CERVICAL FRACTURE. DEGENERATIVE CHANGES. Reading Location: [id number]
[2025-04-02] MEDS: Lidocaine/Epi/Tetracaine 50 ML 1 APPLIC TOPICAL (18:25)
[2025-04-02] MEDS: Lidocaine 1% (20 ml mdv) 20 ML Vial 5 ML INFILT (18:26)
[2025-04-02 18:28] VITALS: BP 124/56; PULSE 72; RESP 16; O2SAT 90
[2025-04-02 18:29] VITALS: O2SAT 92
[2025-04-02] MEDS: Diphth,Pertuss(Acell),Tet Vac 0.5 ML Vial IM (19:21)
[2025-04-02 19:34] VITALS: BP 155/60; PULSE 72; RESP 18; TEMP 36.8; O2SAT 95
== END 2025-04-02 19:46 | disposition home or self-care (01) ==
PROVIDERS: Emergency Provider Emergency Medicine; PCP Family Medicine; Visit Provider Emergency Medicine
DX: S01.01XA Laceration without foreign body of scalp, initial encounter (principal); E78.2 Mixed hyperlipidemia; Z90.710 Acquired absence of both cervix and uterus; I10 Essential (primary) hypertension; S06.0X0A Concussion without loss of consciousness, initial encounter; Z79.82 Long term (current) use of aspirin; F41.8 Other specified anxiety disorders; Z79.899 Other long term (current) drug therapy; Z90.49 Acquired absence of other specified parts of digestive tract; Z98.49 Cataract extraction status, unspecified eye; W19.XXXA Unspecified fall, initial encounter
CPT/HCPCS: 12002; 70450; 72125; 90471; 90715; 99285; A4216

== ENCOUNTER 2025-05-06 18:06 | Emergency (ER) | payer MEDICARE, OTHER, SELFPAY ==
[2025-05-06 18:08] VITALS: TEMP 36; BMI 30.7
[2025-05-06 18:19] VITALS: BP 150/67; PULSE 71; RESP 18; O2SAT 91
--- NOTE | 2025-05-06 18:21 | CT_ITS ---
PROCEDURE: SPINE CERVICAL WITHOUT CONTRAS 05/06/2025 REASON FOR EXAM: FALL, NECK PAIN TECHNIQUE: SPINE CERVICAL WITHOUT CONTRAS Coronal and Sagittal reconstruction series were provided. One or more dose reduction techniques were used (e.g., Automated exposure control, adjustment of the mA and/or kV according to patient size, use of iterative reconstruction technique. RADIATION DOSE SUMMARY: CTDlvol: 19.5 mGy DLP: 377 mGycm COMPARISON: CT of the cervical spine on 04/02/2025 FINDINGS: Cervical vertebral body heights are maintained. There is 2 mm anterolisthesis of C3 on C4, unchanged. No displaced fracture. Multilevel disc height loss with facet and uncovertebral arthropathy, similar to prior. Carotid and aortic calcifications. Lung apices are clear. Air-fluid level in the mid esophagus. Prevertebral soft tissues are unremarkable. CT/Spine Cervical without Contras IMPRESSION: No displaced cervical spine fracture. Multilevel degenerative changes. Reading Location: [facility]
--- NOTE | 2025-05-06 18:21 | CT_ITS ---
PROCEDURE: BRAIN/HEAD WITHOUT CONTRAST 05/06/2025 REASON FOR EXAM: HEAD INJURY TECHNIQUE: BRAIN/HEAD WITHOUT CONTRAST Coronal and Sagittal reconstruction series were provided. One or more dose reduction techniques were used (e.g., Automated exposure control, adjustment of the mA and/or kV according to patient size, use of iterative reconstruction technique. RADIATION DOSE SUMMARY: CTDlvol: 45 mGy DLP: 897 mGycm COMPARISON: CT head dated 04/02/2025 FINDINGS: Brain: No acute intracranial hemorrhage, mass effect, or midline shift. Low density in the periventricular white matter suggests mild chronic small vessel ischemic changes. CSF Spaces: Mild generalized cerebral atrophy Sinuses/Mastoids: Mucosal thickening and secretions in the right greater than left maxillary sinuses, as well as the ethmoid air cells and left sphenoid sinus. No mastoid effusion. Bones: No displaced fracture. Small hematoma in the left posterolateral scalp. Status post left cataract extraction. Atherosclerotic calcification of the intracranial arteries. Nodular density in the left temporal region (series 2 image 19) is unchanged. CT/Brain/Head without Contrast IMPRESSION: 1. No acute intracranial abnormality. 2. Small hematoma in the left posterolateral scalp. 3. Paranasal sinus disease. Reading Location: [facility]
--- NOTE | 2025-05-06 18:22 | EDS_ITS ---
HPI <PJ Rosario - Last Filed: 05/06/25 20:57> History of Present Illness Chief Complaint: Fall Narrative Narrative: Patient presenting today due to a head injury that occurred this evening. She was coming out of the bathroom with her rollator getting ready to go down for dinner when she tripped over her feet and fell backwards, hitting her head on the ground. No LOC occurred. She denies use of blood thinners. She has a laceration to her left posterior scalp. Her tetanus is up-to-date. She reports chronic neck pain that does not seem worse. She denies any other injury. [facility] <PJ Rosario - Last Filed: 05/06/25 20:57> [facility] Medical History Primary hyperparathyroidism Anemia, unspecified Other specified anxiety disorders Unspecified urinary incontinence Overactive bladder Radiculopathy, lumbar region Acute embolism and thrombosis of unspecified deep veins of right proximal lower extremity Depression Mixed hyperlipidemia Obesity Frequent falls Anxiety and depression Chronic anemia Hyperlipidemia Osteoarthritis HTN (hypertension) Fibromyalgia Spinal stenosis Macular degeneration Urine incontinence Fall Home Medications ?Medication ?Instructions ?Recorded ?Last Taken ?Type aspirin 81 mg tablet,delayed 81 mg PO DAILY@0800 01/15 Unknown History release calcium 600 mg (as 1 ea PO DAILY 01/15/17 Unkno wn History carbonate)-vitamin D3 20 mcg (800 unit) tablet (Caltrate with Vitamin D3) pravastatin 20 mg tablet 20 mg PO QHS 01/15/17 Unknow n History sertraline 50 mg tablet 50 mg PO DAILY 01/15/17 Unkn own History vit C 250 mg-vit E 90 mg-zinc 40 1 tab PO DAILY Unknown History mg-copper 1 [id number] capsule (PreserVision AREDS-2) magnesium hydroxide 400 mg/5 mL 30 ml PO DAILY PRN PRN 06/16/18 Unknown Rx oral suspension Constipation ##14 diltiazem HCl 120 mg 120 mg PO DAILY 11/20/21 Unk nown History capsule,extended release 24 hr losartan 100 mg tablet 100 mg PO DAILY 01/04/23 Unk nown History acetaminophen 325 mg capsule 650 mg PO Q6H PRN fever o r pain 04/02/25 Unknown History benzonatate 100 mg capsule 100 mg PO Q8H PRN cough 07/19 Unknown History carboxymethylcellulose sodium 0.5 1 drp EACH EYE DAILY 04/02/25 Unknown History % eye drops (Lubricant Eye Drops) gabapentin 300 mg capsule 300 mg PO DAILY 04/02/25 Unk nown History loperamide 2 mg capsule 2 mg PO Q6H PRN loose stool 04/02/25 Unknown History (Anti-Diarrheal (loperamide)) vibegron 75 mg tablet (Gemtesa) 75 mg PO DAILY 5 Unknown History Allergy/AdvReac Type Severity Reaction Status Date / Time guaifenesin Allergy Intermediate Rash Verified 05/06/25 18:11 iodine Allergy Rash Verified 05/06/25 18:11 COUGH SYRUP W/IODINE Allergy Rash Uncoded 01/03/23 22:16 Family History Mother Colon cancer Maternal family history of colon cancer with metastatic disease to the liver Father Prostate cancer Paternal family history of prostate cancer with metastatic disease to the bones. Sister Colon cancer Breast cancer Surgical History Status post hip surgery S/P carpal tunnel release S/P cataract extraction History of eye surgery History of hysterectomy History of appendectomy History of tonsillectomy and adenoidectomy Social History housing: assisted living facility Smoking Status: Never smoker alcohol intake: never substance use type: does not use ROS <PJ Rosario - Last Filed: 05/06/25 20:57> ROS ED Constitutional Constitutional ED: Denies chills or fever(s) Cardiovascular Cardiovascular: Denies chest pain Respiratory/Chest Respiratory/Chest: Denies dyspnea Gastrointestinal Gastrointestinal: Denies abdominal pain, nausea or vomiting Genitourinary Genitourinary ED: Denies dysuria, hematuria or urinary urgency Musculoskeletal Musculoskeletal: Reports neck pain; Denies arthralgias or back pain Integumentary Reports laceration Neurologic Neurologic: Denies headache(s) or weakness EXAM <PJ Rosario - Last Filed: 05/06/25 20:57> Physical Exam Const Vital Signs: 05/06/25 18:08 05/06/25 18:12 05/06/25 18:19 Temperature 96.8 F L Temperature Source Oral Pulse Rate 71 Respiratory Rate 18 Respiratory Effort Normal Respiratory Depth Normal Respiratory Pattern Normal Blood Pressure 150/67 H Blood Pressure Mean 94 Pulse Ox 91 Oxygen Delivery Method Room Air Room Air 05/06/25 20:42 Temperature 97.8 F Temperature Source Pulse Rate 70 Respiratory Rate 18 Respiratory Effort Respiratory Depth Respiratory Pattern Blood Pressure 137/60 H Blood Pressure Mean 85 Pulse Ox 70 Oxygen Delivery Method Positive well nourished, well developed and no apparent distress General Appearance ED: well developed HEENT Reports normocephalic and head/scalp atraumatic HEENT Narrative: 2 cm full-thickness linear laceration to the left posterior scalp 2 Additional 1 cm full-thickness linear lacerations to the left posterior scalp Mouth ED: Yes moist mucous membranes normal Eyes PERRL and EOMs intact bilaterally Neck full ROM and supple Chest Wall inspection of chest normal Resp normal respiratory effort and clear to auscultation bilaterally Cardio regular rate and regular rhythm GI soft to palpation, non-tender, non-distended and no masses Back/Spine normal ROM and normal to inspection Extremity normal to inspection and full ROM Neuro oriented x3, CN's II-XII intact bilaterally, moves all extremities, no focal motor deficits and no sensory deficits noted Sensorium / Orientation: awake and alert Psych mental status grossly normal and thought process normal Skin Skin Narrative: Aside from scalp laceration no other rashes or lesions noted <Dr. Christophe Aquino DO - Last Filed: 05/06/25 20:40> Physical Exam Const Vital Signs: 05/06/25 18:08 05/06/25 18:12 05/06/25 18:19 Temperature 96.8 F L Temperature Source Oral Pulse Rate 71 Respiratory Rate 18 Respiratory Effort Normal Respiratory Depth Normal Respiratory Pattern Normal Blood Pressure 150/67 H Blood Pressure Mean 94 Pulse Ox 91 Oxygen Delivery Method Room Air Room Air 05/06/25 20:42 Temperature 97.8 F Temperature Source Pulse Rate 70 Respiratory Rate 18 Respiratory Effort Respiratory Depth Respiratory Pattern Blood Pressure 137/60 H Blood Pressure Mean 85 Pulse Ox 70 Oxygen Delivery Method [facility] <Rachel Walls PA - Last Filed: 05/06/25 20:57> [facility] MDM Narrative Medical decision making narrative: Patient presenting today due to mechanical fall that occurred this evening resulting in a head injury and 3 small lacerations to her posterior scalp that will require repair. She otherwise is nontoxic-appearing and in no acute distress. Given her head injury, head CT will be obtained to assess for intracranial bleed, cervical spine CT will be obtained to assess for fracture. Lacerations were stapled, she tolerated this well. CT scans of the brain negative for intracranial abnormality, cervical spine CT shows multilevel degenerative changes, no fracture. Recommended she have rachelle removed in 10 to 14 days. Return instructions were discussed and patient discharged home in stable condition. I have personally performed a face to face assessment of the patient and have reviewed the ADAM Note. I performed a substantive portion of the visit including all aspects of the following. My gauthier findings include: History is [patient presents the emergency department after sustaining a fall. She states that she had gotten out of the shower and was walking with her walker when she lost her balance and fell striking her head on the ground. She denies loss of consciousness. She has history of chronic neck pain but does not think anything out of the ordinary now since the fall. She is not anticoagulated. Denies any other injuries. Denies recent illness.] Exam is [HEENT-PERRLA, EOMI. Cranial nerves II through XII grossly intact. TMs clear. Mucous membranes moist. No adenopathy. Patient has a 2 cm laceration over the left posterior occiput as well as a another small 1 cm laceration n oted. No bony step-offs or depressions. No hemotympanum. Cardiovascular-regular rate and rhythm without murmur or ectopy Lungs-clear to auscultation, chest wall stable without crepitus or subcu em physema Abdomen-normoactive bowel sounds, soft, nontender, no rebound or rigidity, no peritoneal signs. Extremities-intact ?4, normal range of motion, normal pulses, atraumatic] Medical Decison Making [ ] Other additions or changes: [None] Radiography Diagnostic Testing: Clinical Impression(s) from Imaging Studies Brain CT 05/06/25 18:21 IMPRESSION: 1. No acute intracranial abnormality. 2. Small hematoma in the left posterolateral scalp. 3. Paranasal sinus disease. Reading Location: [id number] Cervical Spine CT 05/06/25 18:21 IMPRESSION: No displaced cervical spine fracture. Multilevel degenerative changes. Reading Location: [id number] <Dr. Christophe Aquino, DO - Last Filed: 05/06/25 20:40> [facility] Narrative Medical decision making narrative: Patient presenting today due to mechanical fall that occurred this evening resulting in a head injury and 2 small lacerations to her posterior scalp that will require repair. She otherwise is nontoxic-appearing and in no acute dist ress. Given her head injury, head CT will be obtained to assess for intracranial bleed, cervical spine CT will be obtained to assess for fracture. I have personally performed a face to face assessment of the patient and have reviewed the ADAM Note. I performed a substantive portion of the visit including all aspects of the following. My gauthier findings include: History is [patient presents the emergency department after sustaining a fall. She states that she had gotten out of the shower and was walking with her walker when she lost her balance and fell striking her head on the ground. She denies loss of consciousness. She has history of chronic neck pain but does not think anything out of the ordinary now since the fall. She is not anticoagulated. Denies any other injuries. Denies recent illness.] Exam is [HEENT-PERRLA, EOMI. Cranial nerves II through XII grossly intact. TMs clear. Mucous membranes moist. No adenopathy. Patient has a 2 cm laceration over the left posterior occiput as well as a another small 1 cm laceration noted. No bony step-offs or depressions. No hemotympanum. Cardiovascular-regular rate and rhythm without murmur or ectopy Lungs-clear to auscultation, chest wall stable without crepitus or subcu emphysema Abdomen-normoactive bowel sounds, soft, nontender, no rebound or rigidity, no peritoneal signs. Extremities-intact ?4, normal range of motion, normal pulses, atraumatic] Medical Decison Making [patient presents with a fall and head injury. CT scan of the brain without contrast unremarkable. CT C-spine showed no fractures. Suture of scalp lacerations performed by physician development assistant please see procedure note] Other additions or changes: [None] Radiography Diagnostic Testing: Clinical Impression(s) from Imaging Studies Brain CT 05/06/25 18:21 IMPRESSION: 1. No acute intracranial abnormality. 2. Small hematoma in the left posterolateral scalp. 3. Paranasal sinus disease. Reading Location: [id number] Cervical Spine CT 05/06/25 18:21 IMPRESSION: No displaced cervical spine fracture. Multilevel degenerative changes. Reading Location: [facility] Procedures <PJ Rosario - Last Filed: 05/06/25 20:57> Lacerations Laceration: Length: 4 cm Depth: Sub Q Shape: Linear Laceration repair: Irrigated and Lidocaine with epi Number of Sutures/Golden: 4 Comment: Rachelle Discharge Plan Triage Chief Complaint: Fall Other Complaint: Laceration ED Midlevel Provider: Rachel Walls ED Provider: Christophe Aquino Dx/Rx/DC Orders Clinical Impression: Head injury, Laceration of scalp Instructions: ED Head Injury (Adult), ED Laceration, All Closures Prescriptions: No Action aspirin 81 MG tablet 81 mg PO DAILY@0800 pravastatin 20 MG tablet 20 mg PO QHS sertraline 50 MG tablet 50 mg PO DAILY calcium carbonate-vitamin D3 [Caltrate with Vitamin D3] 1 EACH tablet 1 ea PO DAILY PreserVision AREDS-2 1 EACH capsule 1 tab PO DAILY magnesium hydroxide 30 ML suspension 30 ml PO DAILY PRN PRN (Reason: Constipation) Qty: 14 0RF diltiazem HCl 120 mg capsule,extended release 24hr 120 mg PO DAILY losartan 100 mg tablet 100 mg PO DAILY acetaminophen 325 mg capsule 650 mg PO Q6H PRN (Reason: fever or pain) benzonatate 100 mg capsule 100 mg PO Q8H PRN (Reason: cough) gabapentin 300 mg capsule 300 mg PO DAILY loperamide [Anti-Diarrheal (loperamide)] 2 mg capsule 2 mg PO Q6H PRN (Reason: loose stool) carboxymethylcellulose sodium [Lubricant Eye Drops] 0.5 % drops 1 drp EACH EYE DAILY Gemtesa 75 mg tablet 75 mg PO DAILY Primary Care Provider: Mati Landon Referrals: Mati Landon MD [Primary Care Provider] - 10-14 Days suture removal Activity Restrictions/Additional Instructions: Have sutures removed in 10 to 14 days and return for any other concerns Print Language: Mongolian Disposition Disposition: Home, Self Care
[2025-05-06] MEDS: Lidocaine 1% /Epi 1:100 (20ml) 20 ML Vial 10 ML INFILT (19:31)
--- OUTSIDE RECORDS SUMMARY | 2025-05-06 19:47 | XMS RPT_ITS | CCD ---
Author Organization [facility] CliniSywy Care Team Providers Care Military Cook Name Role Phone Halie Renee Unavailable Unavailable PROVIDER, UNKNOWN Unavailable Unavailable LEONOR, JOVAN-CHI Unavailable Unavailable Isael Renyoso Unavailable Unavailable PROVIDER, UNKNOWN Unavailable Unavailable LEONOR, JOVAN-CHI Unavailable Unavailable Halie Renee Unavailable Unavailable PROVIDER, UNKNOWN Unavailable Unavailable LEONOR, JOVAN-CHI Unavailable Unavailable Jordan Landon MD Primary Care Provider Jordan Landon MD Primary Care Provider Jordan Landon MD Primary Care Provider Jordan Landon MD Primary Care Provider Dr. Jordan Landon Primary Care Provider [phone] Dr. Brennon Montano Emergency Provider Dr. Destini Castillo Admit Provider Dr. Destini Castillo Attending Provider Dr. Destini Castillo Other Provider Dr. Citlalli Guzman Attending Provider Dr. Citlalli Guzman Other Provider Jordan Landon MD Primary Care Provider [employer] SALES ENGINEER.COMMUNITY LIVING SPECIALIST, Vonda Unavailable Teodoro HVAC SALES ENGINEER.COMMUNITY LIVING SPECIALIST, Harry Unavailable [employer] HV[employer] SALES ENGINEER.COMMUNITY LIVING SPECIALIST, Vonda Unavailable Unavail able [employer] SALES ENGINEER.COMMUNITY LIVING SPECIALIST, Vonda Unavailable Dr. Jordan Landon MD Primary Care Provider Dr. Abdelrahman Camacho DO Emergency Provider José Yee Attending Unavailable Elderbrock, Jordan Primary Care Unavailable Elderbrock, Jordan Primary Care Unavailable Abdelrahman Camacho Attending Unavailable Elderbrock, Jordan Primary Care Unavailable Simone Olvera Attending Unavailable Elderbrock, Jordan Primary Care Unavailable Torrey Helms Attending Unavailmauricio e Elderbrock OLS, Jordan Attending Unavailable Elderbrock, Jordan Primary Care Unavailable Elderbrock OLS, Jordan Referring Unavailable Elderbrock OLS, Jordan Attending Unavailable Elderbrock, Jordan Primary Care Unavailable ELDERBROCK, JORDAN D Primary Care Unavailable KEYLA GLOVER Referring Unavailable ELDERBROCK, JORDAN Cardozo Primary Care Unavailable ELDERBROCK, JORDAN Cardozo Attending Unavailable ELDERBROCK, JORDAN D Primary Care Unavailable ELDERBROCK, JORDAN D Referring Unavailable ELDERBROCK, JORDAN D Primary Care Unavailable ELDERBROCK, JORDAN D Attending Unavailable ELDERBRONEAL, JORDAN D Primary Care Unavailable YELITZA SAMAYOA Referring Unavailable ELDERBROCK, JORDAN Cardozo Primary Care Unavailable ELDERBROCK, JORDAN Cardozo Attending Unavailable ELDERBROCK, JORDAN D Primary Care Unavailable KEYLA GLOVER Attending Unavailable SONYA KENYON Attending Unavailable ELDERBROCK, JORDAN D Primary Care Unavailable ELDERBROCK, JORDAN D Referring Unavailable ELDERBROCK, JORDAN D Primary Care Unavailable YELITZA SAMAYOA Attending Unavailable Jordan Landon MD Primary Care Provider Teodoro HVAC SALES ENGINEERHarry LLANOS Unavailable [phone] Allergies Allergy Classification Reported Allergen(s) Allergy Type Date of Onset Reaction(s) Facility guaiFENesin (1 source) guaiFENesin Drug Allergy 07-30-2009 [facility] Iodine (and Iodine containting drugs) (1 source) Iodine Drug Allergy 07-30-2009 [facility] (20 sources) guaiFENesin; Translations: [GUAIFENESIN] Drug Allergy 07-30-2009 [facility] Work Phone: (20 sources) Iodine; Translations: [IODINE] Drug Allergy 07-30-2009 [facility] Work Phone: (6 sources) COUGH SYRUP W/IODINE; Translations: [COUGH SYRUP W/IODINE] Allergy to substance 01-03-2023 [facility] (1 source) guaiFENesin Drug Allergy 04-02-2025 [facility] (1 source) Iodine Drug Allergy 04-02-2025 [facility] Medications Current Medications Medication Drug Class(es) Dates Sig (Normalized) Sig (Original) acetaminophen 325 mg oral capsule (20 sources) Start: 04-02-2025 take 2 capsules by mouth every six hours as needed for pain Acetaminophen 325 mg capsule Active 650 mg PO EVERY 6 HOURS as needed for fever or pain April 02, 2025 12:00am Start: 01-19-2023 take 2 tablets by mo ut every six hours as needed acetaminophen (TYLENOL) 325 mg tablet Take 2 tablets by mouth every 6 hours as needed for pain. 01/19/2023 Active Comment on above: Take 2 tablets by mo ut every 6 hours as needed for pain. amoxicillin 875 mg / clavulanate 125 mg oral tablet (1 source) Penicillin-class Antibacterial Start: End: take 1 tablet by mouth twice daily amoxicillin-clavula jose potassium (AUGMENTIN) 875-125 mg per tablet Take 1 tablet by mouth two times a day for 5 days. 10 tablet 02/21/2025 02/26/2025 Active aspirin 81 mg delayed release oral tablet (20 sources) Platelet Aggregation Inhibitor, Nonsteroidal Anti-inflammatory Drug Start: 9 aspirin(ECOTRIN LOW STRENGTH 81 MG TAB) Take one(1) tablet daily. 0 07/30/2009 Active Comment on above: Take one(1) tablet d aily. benzonatate 100 mg oral capsule (20 sources) Non-narcotic Antitussive Start: take 1 capsule by mouth every eight hours as needed for cough Benzonatate 100 mg capsule Active 100 mg PO Q8H as needed for cough April 02, 2025 12:00am Start: 02-08-2025 End: 04-17-2025 take 1 capsule by mouth every eight hours as needed benzonatate (TESSALON PERLE) 100 mg capsule Take 1 capsule by mouth three times a day as needed for cough. 21 capsule 02/21/2025 04/17/2025 Discontinued calcium carbonate 1500 mg oral tablet (20 sources) Start: 11-24-2019 calcium carbonate(CALTRATE 600 600 MG (1,500 MG) TAB) Take by mouth once daily. 0 11/24/2019 Active Comment on above: Take by mouth once d aily. calcium carbonate 1500 mg / cholecalciferol 800 unt oral tablet (5 sources) Vitamin D Start: 01-15-2017 take 1 tablet by mouth once daily Calcium Carbonate-Vitamin D3 (Caltrate With Vitamin D3) 1 EACH tablet Active 1 NMA PO DAILY January 15, 2017 12:00am carboxymethylcellulose sodium 5 mg/ml ophthalmic solution (20 sources) Start: 04-02-2025 take 0.5 drop(s) into the eye(s) once daily Carboxymethylcellulose Sodium (Lubricant Eye Drops) 0.5 % drops Active 1 NMA EACH EYE DAILY April 02, 2025 12:00am carboxymethylcel lulose sodium (REFRESH OPHTHALMIC) Use 1 [...] Comment on above: Take 1 capsule by [facility] three times a day for 10 days. 24 hr dilTIAZem hydrochloride 120 mg extended release oral capsule (20 sources) Calcium Channel Renetta Start: 09-12-20 End: 07-27-20 24 take 1 capsule by mouth once daily dilTIAZem CD (CARDIZEM CD) 120 mg 24 hr capsule Indications: Essential hypertension , Near syncope , Left ventricular hypertrophy Take 1 capsule by mouth once daily. 90 capsule 3 07/27/2024 Active Comment on above: Take 1 capsule by [facility] once daily. doxycycline hyclate 100 mg oral tablet (3 sources) Tetracycline-class Drug Start: 02-22-20 25 End: 02-29-20 25 take 1 tablet by mouth twice daily doxycycline (VIBRA-TABS) 100 mg tablet Take 1 tablet by mouth two times a day for 7 days. 14 tablet 02/21/2025 02/28/2025 Active ferrous sulfate 325 mg oral tablet (20 sources) Start: 10-03-20 End: 04-17-20 take 1 tablet by mouth once daily ferrous sulfate 325 mg (65 mg iron) tablet Indications: Anemia, unspecified type Take 1 tablet by mouth once daily. 90 tablet 3 04/17/2025 04/17/2026 Active gabapentin 300 mg oral capsule (20 sources) Anti-epileptic Agent Start: 10-14-20 End: 09-08-20 take 1 capsule by mouth once daily gabapentin (NEURONTIN) 300 mg capsule Indications: Lumbar radiculopathy Take 1 capsule by mouth once daily for 7 days. 7 capsule 03/13/2025 Active Start: 03-18-2023 End: 09-14-2023 take 1 [...] 180 days. 90 capsule 1 08/28/2022 Active Start: 01-15-2017 End: 04-02-2025 take 3 capsules by mouth once daily Gabapentin (Neurontin) 100 MG capsule Discontinued 300 mg PO DAILY January 15, 2017 12:00am April 02, 2025 5:30pm Comment on above: Take 1 capsule by [facility] once daily for 180 days. Niemmtcdzlr-Usztidqyr-X it C-Mn (4 sources) Start: 01-15-2017 Glucosamine-Chondroit -Vit C-Mn Active 2 EACH PO DAILY January 14, 2017 11:00pm Start: 01-15-2017 Glucosamine-Ch ondroit-Vit C-Mn Active 2 EACH PO DAILY January 15, 2017 12:00am hydroCHLOROthiazide 25 mg / losartan potassium 100 mg oral tablet (1 source) Thiazide Diuretic, Angiotensin 2 Receptor Renetta Start: 01-15-2017 take 1 tablet by mouth once daily Losartan-Hydrochlorothiazide Active 1 TABLET PO DAILY January 15, 2017 12:00am losartan potassium 100 mg oral tablet (20 sources) Angiotensin 2 Receptor Renetta Start: 08-28-2022 End: 02-13-2025 take 1 tablet by mouth once daily losartan (COZAAR) 100 mg tablet Indications: Essential hypertension Take 1 tablet by mouth once daily. 90 tablet 3 02/13/2025 Active Start: 09-12-2021 take 1 tablet by [place] th once daily losartan (COZAAR) 100 mg tablet Indications: Essential hypertension Take 1 tablet by mouth once daily. 90 tablet 3 09/12/2021 Active Comment on above: Take 1 tablet by [place] th once daily. Doirbped-Tks-Ifac-F a-Lutein (Centrum Silver Women) 1 EACH tablet (2 sources) Start: 01-15-2017 take 1 tablet by mouth once daily Fxiuqrge-Nke-Dhph- Fa-Lutein (Centrum Silver Women) 1 EACH tablet Active 1 EACH PO DAILY January 15, 2017 12:00am nystatin [id number] unt/ml topical cream (20 sources) Polyene Antifungal Start: 10-24-2024 nystatin (MYCOSTATIN) cream Apply to affected area once daily as needed. 90 g 3 10/24/2024 Active Start: 04-21-2024 End: 10-24-2024 nystatin (MYCOSTATIN) cream Apply to affected area once daily as needed. 30 g 5 04/21/2024 10/24/2024 Discontinued Start: 01-10-2024 End: 01-24-2024 nystatin (MYCOSTATIN) cream Indications: Yeast dermatitis Apply to affected area two times a day for 14 days. 30 g 2 01/10/2024 01/24/2024 Active Start: 06-14-2023 End: 06-28-2023 nystatin (MYCOSTATIN) cream Indications: Yeast dermatitis Apply to affected area twice daily for 14 days. 30 g 2 06/14/2023 06/28/2023 Active Start: 01-04-2023 End: 04-02-2025 nystatin (MYCOSTATIN) cream Apply to affected area once daily as needed. 0 03/23/2024 Active Start: 09-12-2021 End: 09-18-2022 nystatin (MYCOSTATIN) cream Indications: Yeast dermatitis Apply to affected area twice daily. 30 g 2 08/28/2022 Active Comment on above: Apply to affected ar ea twice daily. Apply to affected ar ea twice daily for 14 days. Apply to affected ar ea two times a day for 14 days. oxyCODONE hydrochloride 5 mg oral tablet (1 source) Opioid Agonist Start: 06-16-20 take 5 mg by mouth every six hours as needed Oxycodone Active 5 MG PO EVERY 6 HOURS NEEDED 30 7 June 16, 2018 9:54am pravastatin sodium 20 mg oral tablet (20 sources) HMG-CoA Reductase Inhibitor Start: 01-16-20 End: 02-14-20 take 1 tablet by mouth once daily pravastatin (PRAVACHOL) 20 mg tablet Indications: Mixed hyperlipidemia Take 1 tablet by mouth once daily. 90 tablet 3 02/13/2025 Active Comment on above: Take 1 tablet by [place] th once daily. predniSONE 10 mg oral tablet (1 source) Start: 06-03-20 End: 06-12-20 predniSONE (DELTASONE) 10 mg tablet Indications: Lumbar [...] tablet (20 sources) Serotonin Reuptake Inhibitor Start: 03-16-20 take 2 tablets by mouth once daily sertraline (ZOLOFT) 50 mg tablet Take 2 tablets by mouth once daily. 180 tablet 3 03/16/2025 Active Start: 10-14-2023 End: 03-08-2024 sertraline (ZOLOFT) 50 mg ta blet TAKE 2 TABLETS ONE TIME DAILY 180 tablet 3 03/08/2024 Active Start: 01-19-2023 take 2 tablets by mo [facility] once daily sertraline (ZOLOFT) 50 mg tablet Take 2 tablets by mouth once daily. 90 tablet 3 01/19/2023 Active Start: 01-15-2017 End: 01-19-2023 take 1 tablet by mouth once daily Sertraline 50 MG tablet Active 50 mg PO DAILY January 15, 2017 12:00am Start: 01-15-2017 take 100 mg by mouth once kristan y Sertraline Active 100 MG PO DAILY January 14, 2017 11:00pm Comment on above: Take 1 tablet by [place] th once daily. Take 2 tablets by mo uth once daily. traMADol hydrochloride 50 mg oral tablet (1 source) Opioid Agonist Start: 01-15-2017 take 50 mg by mouth every four hours as needed Tramadol Active 50 MG PO EVERY 4 HOURS NEEDED January 15, 2017 12:00am Vibegron (1 source) Start: 04-02-2025 take 1 tablet by mouth once daily Vibegron (Vibegron 75 Mg Tablet) 75 mg tablet Active 75 mg PO DAILY April 02, 2025 12:00am vibegron (GEMTESA) 75 mg tablet (20 sources) Start: 09-21-2023 take 1 tablet by mouth once daily vibegron (GEMTESA) 75 mg tablet Take 1 tablet by mouth once daily. 09/21/2023 Active Start: 09-21-2023 take 1 tablet by [place] th once daily vibegron (GEMTESA) 75 mg tablet Take 1 tablet by mouth once daily. 0 09/21/2023 Active Comment on above: Take 1 tablet by [place] [facility] once daily. Vit C,A-Ot-Hlaoo-Lutein -Zeaxan (Preservision Areds-2) 1 EACH capsule (5 sources) Start: 10-14-2017 take 2 capsules by mouth once daily Vit C,V-Eo-Lkhms-Lutein -Zeaxan (Preservision Areds-2) 1 EACH capsule Active 1 {tbl} PO DAILY October 14, 2017 1:00am Start: 10-14-2017 take 2 capsules by m outh once daily Vit C,B-Ht-Ziluj-Lutein-Zeaxan (Preservision Areds-2) 1 EACH capsule Active 2 EACH PO DAILY October 14, 2017 12:00am Start: 10-14-2017 take 2 capsules by m outh once daily Vit C,R-Fc-Diycx-Lutein-Zeaxan (Preservision Areds-2) 1 EACH capsule Active 2 EACH PO DAILY October 14, 2017 1:00am vit C/E/Zn/coppr/lutein/zeax an (PRESERVISION AREDS 2 ORAL) (20 sources) vit C/E/Zn/coppr /lutein/zeaxan (PRESERVISION AREDS 2 ORAL) Take 1 capsule by mouth twice daily. Active vit C/E/Zn/coppr /lutein/zeaxan (PRESERVISION AREDS 2 ORAL) Take 1 capsule by mouth twice daily. 0 Active Comment on above: Take 1 capsule by mo ut twice daily. Completed/Discontinued Medications Medication Drug Class(es) [...] Patient should start on December 16, 2023. docusate sodium 100 mg oral capsule (5 sources) Start: 06-16-2018 End: 04-02-2025 take 1 capsule by mouth twice daily Docusate Sodium 100 MG capsule Discontinued 100 mg PO TWICE A DAY June 16, 2018 12:00am April 02, 2025 5:33pm furosemide 20 mg oral tablet (10 sources) Loop Diuretic Start: 11-16-2023 End: 03-23-2024 take 1 tablet by mouth once daily furosemide (LASIX) 20 mg tablet Indications: Right leg swelling Take 1 tablet by mouth once daily for 7 days. 7 tablet 0 11/16/2023 03/23/2024 Discontinued (Course of therapy completed) Comment on above: Take 1 tablet by [place] once daily for 7 days. Glucosamine-Chondroi t-Vit C-Mn 1 EACH capsule (1 source) Start: 01-15-2017 End: 04-02-2025 take 1 capsule by mouth once daily Glucosamine-Chondroit -Vit C-Mn 1 EACH capsule Discontinued 2 NMA PO DAILY January 15, 2017 12:00am April 02, 2025 5:33pm lidocaine QAb-oq-fvvkalh-menth 4-30-10 % ktcg (4 sources) End: 09-18-2022 lidocaine BIc-zn-bznskjh-menth 4-30-10 % ktcg Apply to affected area. As needed 0 09/18/2022 Discontinued lidocaine HCl-me -salicyl-menth 4-30-10 % ktcg Apply to affected area. As needed 0 Active Comment on above: Apply to affected ar ea. As needed loperamide hydrochloride 2 mg oral capsule (6 sources) Opioid Agonist Start: End: take 1 capsule by mouth every six hours as needed loperamide (IMODIUM) 2 mg cap(s) Take 1 capsule by mouth four times a day as needed. 04/11/2025 04/17/2025 Discontinued Start: 04-02-2025 take 1 capsule by mo [facility] every six hours as needed Loperamide (Anti-Diarrheal (Loperamide)) 2 mg capsule Active 2 mg PO EVERY 6 HOURS as needed for loose stool April 02, 2025 12:00am magnesium hydroxide 80 mg/ml oral suspension (10 sources) Start: 04-11-2025 End: 04-17-2025 take 30 mL by mouth once daily as needed magnesium hydroxide (MILK OF MAGNESIA) 400 mg/5 mL suspension Take 30 mL by mouth once daily as needed. 04/11/2025 04/17/2025 Discontinued Start: 06-16-2018 take 1 mL by mouth o nce daily as needed for constipation Magnesium Hydroxide 30 ML suspension Active 30 mL PO DAILY NEEDED as needed for Constipation June 16, 2018 12:00am Start: 06-16-2018 take 1 mL by mouth o nce daily as needed Magnesium Hydroxide Active 30 ML PO DAILY NEEDED June 15, 2018 11:00pm Start: 06-16-2018 take 1 mL by mouth o nce daily as needed Magnesium Hydroxide Active 30 ML PO DAILY NEEDED June 16, 2018 12:00am Start: 06-16-2018 take 1 mL by mouth o nce daily as needed Magnesium Hydroxide Active 30 ML PO DAILY NEEDED June 16, 2018 12:00am meloxicam 15 mg oral tablet (17 sources) Nonsteroidal Anti-inflammatory Drug Start: 01-15-2017 End: 04-02-2025 take 1 tablet by mouth once daily Meloxicam (Mobic) 15 MG tablet Discontinued 15 mg PO DAILY January 15, 2017 12:00am April 02, 2025 5:31pm Comment on above: Take 1 tablet by mouth once daily. Lrchzlrg-Hbm-Kit n-Fa-Vit K-Lut (Centrum Silver Women) 1 EACH tablet (3 sources) Start: 01-15-2017 End: 04-02-2025 take 1 tablet by mouth once daily Bvgoaflc-Dnj-Paza- Fa-Vit K-Lut (Centrum Silver Women) 1 EACH tablet Discontinued 1 NMA PO DAILY January 15, 2017 12:00am April 02, 2025 5:33pm Start: 01-15-2017 take 1 tablet by [place] th once daily Jeaizxsy-Vpb-Ctbg-Fa-Vit K-Lut (Centrum Silver Women) 1 EACH tablet Active 1 EACH PO DAILY January 14, 2017 11:00pm Start: 01-15-2017 take 1 tablet by [place] th once daily Tlgxaqhb-Cgs-Knwm-Fa-Vit K-Lut (Centrum Silver Women) 1 EACH tablet Active 1 EACH PO DAILY January 15, 2017 12:00am 24 hr oxybutynin chloride 10 mg extended release oral tablet (11 sources) Cholinergic Muscarinic Antagonist Start: 01-04-2023 End: 04-02-2025 take 1 tablet by mouth once daily Oxybutynin Chloride 10 mg Tablet Extended Release 24hr Discontinued 10 mg PO DAILY January 04, 2023 12:00am April 02, 2025 5:32pm Comment on above: Take 1 tablet by [place] th once daily. triamcinolone acetonide 0.25 mg/ml topical cream (20 sources) Corticosteroid End: 04-17-2025 triamcinolone (KENALOG) 0.025 % cream Apply to affected area twice daily. 04/17/2025 Discontinued Comment on above: Apply to affected ar ea twice daily. Problems Active Problems Problem Classification Problem Date Documented Date Episodic/Chronic Anxiety disorders (20 sources) Mixed anxiety and depressive disorder; Translations: [Other specified anxiety disorders] Onset: 09-21-2023 09-21-2023 Chronic Deficiency and other anemia (2 sources) Hemoglobin low; Translations: [Anemia, unspecified] 03-23-2024 Episodic Deficiency and other anemia (4 sources) Anemia; Translations: [Anemia, unspecified] 09-29-2024 Episodic Deficiency and other anemia (3 sources) Iron deficiency anemia; Translations: [Iron deficiency anemia, unspecified] 10-05-2024 Episodic Deficiency and other anemia (1 source) Iron deficiency anemia, unspecified; Translations: [Iron deficiency anemia, unspecified iron deficiency anemia type] Onset: 04-17-2025 Episodic Diabetes mellitus without complication (1 source) Increased glucose level; Translations: [Other abnormal glucose] Episodic Disorders of lipid metabolism (20 sources) Mixed hyperlipidemia; Translations: [Mixed hyperlipidemia] Onset: 03-14-2021 Chronic E Codes: Fall (9 sources) Fall; Translations: [Unspecified fall, initial encounter] 01-04-2023 Episodic Essential hypertension (20 sources) Essential (primary) hypertension; Translations: [Essential hypertension] Onset: 03-11-2018 Chronic External Injury - Fall (2 sources) Unspecified fall, initial encounter; Translations: [Unspecified fall, initial encounter] Onset: 03-10-2018 Fracture of neck of femur (hip) (1 source) Intertrochanteric fracture; Translations: [Displaced intertrochanteric fracture of right femur, initial encounter for closed fracture] 08-31-2020 Episodic Fracture of upper limb (4 sources) Unspecified fracture of the lower end of left radius, initial encounter for closed fracture; Translations: [Unspecified fracture of the lower end of left radius, subsequent encounter for closed fracture with routine healing] Onset: 03-10-2018 Episodic Genitourinary symptoms and ill-defined conditions (20 sources) Urinary incontinence; Translations: [Unspecified urinary incontinence] Onset: 09-21-2023 06-16-2018 Chronic Heart valve disorders (20 sources) Non-rheumatic mitral valve stenosis; Translations: [Nonrheumatic mitral (valve) stenosis] Onset: 12-31-2023 12-31-2023 Chronic Immunizations and screening for infectious disease (6 sources) Tetanus toxoid vaccination given; Translations: [Encounter for immunization] 11-28-2021 Episodic Malaise and fatigue (8 sources) Asthenia; Translations: [Other malaise] 01-04-2023 Episodic Mycoses (4 sources) Candidiasis of skin; Translations: [Candidiasis of skin and nail] Episodic Neoplasms of unspecified nature or uncertain behavior (20 sources) Monoclonal gammopathy of uncertain significance; Translations: [Monoclonal gammopathy] Onset: 11-24-2018 11-24-2018 Chronic Occlusion or stenosis of precerebral arteries (20 sources) Bilateral stenosis of carotid arteries; Translations: [Occlusion and stenosis of bilateral carotid arteries] Onset: 09-20-2019 Chronic Open wounds of head; neck; and trunk (8 sources) Scalp laceration; Translations: [Laceration without foreign body of scalp, initial encounter] Onset: 04-06-2025 09-01-2020 Episodic Osteoarthritis (20 sources) Unspecified osteoarthritis, unspecified site; [...] Translations: [Cardiomegaly] Onset: 09-20-2019 09-20-2019 Chronic Other connective tissue disease (5 sources) Fibromyalgia; Translations: [Fibromyalgia] 08-31-2020 Episodic Other connective tissue disease (1 source) Swelling of right lower limb; Translations: [Other specified soft tissue disorders] 09-29-2024 Episodic Other connective tissue disease (4 sources) Recurrent falls ; Translations: [Repeated falls] 04-03-2025 Episodic Other connective tissue disease (1 source) Repeated falls; Translations: [Frequent falls] Onset: 04-17-2025 Episodic Other diseases of bladder and urethra (20 sources) Overactive bladder; Translations: [Overactive bladder] Onset: 09-21-2023 09-21-2023 Chronic Other diseases of bladder and urethra (1 source) Overactive bladder; Translations: [OAB (overactive bladder)] Onset: 09-21-2023 Chronic Other endocrine disorders (20 sources) Primary hyperparathyroidism; Translations: [Primary hyperparathyroidism] Onset: 07-20-2019 Chronic Other injuries and conditions due to external causes (10 sources) Closed injury of head; Translations: [Unspecified injury of head, initial encounter] 11-28-2021 Episodic Other injuries and conditions due to external causes (8 sources) Injury of head; Translations: [Unspecified injury of head, initial encounter] 01-04-2023 Episodic Other injuries and conditions due to external causes (2 sources) Unspecified injury of head, initial encounter; Translations: [Head injury, unspecified] 01-04-2023 Episodic Other injuries and conditions due to external causes (1 source) At high risk for fall; Translations: [History of falling] Episodic Other lower respiratory disease (5 sources) Hypoxia; Translations: [Hypoxemia] 01-04-2023 Episodic Other lower respiratory disease (2 sources) Hypoxemia; Translations: [Hypoxemia] 01-04-2023 Episodic Other lower respiratory disease (2 sources) Cough; Translations: [Acute cough] 02-21-2025 Episodic Other nervous system disorders (4 sources) Polyneuropathy, unspecified; Translations: [Carpal tunnel syndrome, left upper limb] Onset: 03-11-2018 Chronic Other nervous system disorders (3 sources) Poor balance; Translations: [Other abnormalities of gait and mobility] 04-03-2025 Episodic Other non-traumatic joint disorders (2 sources) Pain [...] Hypercalcemia; Translations: [Hypercalcemia] Onset: 07-20-2019 07-20-2019 Chronic Other nutritional; endocrine; and metabolic disorders (2 sources) Weight loss; Translations: [Abnormal weight loss] 10-05-2024 Episodic Other screening for suspected conditions (not mental disorders or infectious disease) (1 source) Plain X-ray result abnormal; Translations: [Abnormal findings on diagnostic imaging of other specified body structures] 04-13-2025 Chronic Pneumonia (except that caused by tuberculosis or sexually transmitted disease) (4 sources) Bacterial pneumonia; Translations: [Unspecified bacterial pneumonia] Onset: 04-12-2025 02-21-2025 Episodic Residual codes; unclassified (2 sources) Family history of cancer of colon; Translations: [Family history of malignant neoplasm of digestive organs] 10-05-2024 Episodic Retinal detachments; defects; vascular occlusion; and retinopathy (20 sources) Unspecified macular degeneration; Translations: [Degenerative disorder of macula ] Onset: 03-11-2018 05-25-2019 Chronic Spondylosis; intervertebral disc disorders; other back problems (20 sources) Lumbar radiculopathy; Translations: [Radiculopathy, lumbar region] Onset: 08-12-2013 Episodic Superficial injury; contusion (11 sources) Contusion of scalp; Translations: [Contusion of scalp, initial encounter] 11-28-2021 Episodic Syncope (1 source) Near syncope; Translations: [Syncope and collapse] 07-27-2024 Episodic Unclassified (2 sources) Body mass index (BMI) 34.0-34.9, adult; Translations: [Body mass index (BMI) 34.0-34.9, adult] Onset: 03-11-2018 Chronic Unclassified (2 sources) Acquired absence of both cervix and uterus; Translations: [Acquired absence of both cervix and uterus] Onset: 03-11-2018 Episodic Unclassified (1 source) Acute cough; Translations: [Acute cough] Onset: 02-21-2025 Past or Other Problems Problem Classification Problem Date Documented Da te Episodic/Chronic Deficiency and other anemia (2 sources) Anemia, unspecified; Translations: [Anemia, unspecified] Onset: 09-29-2024 Episodic Open wounds of extremities (2 sources) Tear of skin; Translations: [Laceration without foreign body of left forearm, initial encounter] Onset: 09-07-2024 08-23-2024 Episodic Other bone disease and musculoskeletal deformities (20 sources) Osteopenia; Translations: [Other specified disorders of bone density and structure, unspecified site] Onset: 07-20-2019 07-20-2019 Episodic Other connective tissue disease (20 sources) Calcaneal spur; Translations: [Calcaneal spur, unspecified foot] Onset: 07-30-2009 07-30-2009 Episodic Other nervous system disorders (20 sources) Abnormal gait; Translations: [Unspecified abnormalities of gait and mobility] Onset: 08-12-2013 Episodic Other nervous system disorders (1 source) Unspecified abnormalities of gait and mobility; Translations: [Gait abnormality] Onset: 08-12-2013 Episodic Other nutritional; endocrine; and metabolic disorders (1 source) Abnormal weight loss; Translations: [Weight loss] Onset: 10-16-2024 Episodic Phlebitis; thrombophlebitis and thromboembolism (20 sources) Acute deep vein thrombosis of lower limb; Translations: [Acute embolism and thrombosis of unspecified deep veins of right proximal lower extremity] Onset: 11-16-2023 11-16-2023 Episodic Residual codes; unclassified (1 source) Family history of malignant neoplasm of digestive organs; Translations: [Family history of colon cancer] Onset: 10-16-2024 Episodic Sprains and strains (20 sources) Sprain of foot; Translations: [Unspecified sprain of unspecified foot, initial encounter] Onset: 07-30-2009 07-30-2009 Episodic Results Test Name Value Interpretation Reference Range [facility]) -------- TERRIE SAMANO ([id number]) 1935 F Date Time Provider Department 04/23/25 JORDAN LANDONWS During your visit today, we recorded the following information about you: Esha Jean, RN 04/23/2025 3:41 PM Signed Sophie nurse with [facility] is calling due to patient states that she is taking milk of mag and imodium but they are not on her current medication list. Nurse needs to know if patient is to be taking these? Please review and advise, nurse needs called back with information Jordan Landon MD 04/24/2025 8:12 AM Signed She may take them both as needed MD Kevin Douglass Kathryn, MA 04/24/2025 9:44 AM Signed Detailed message left on Sophie's identified VM. Citlalli Brown MA Allergies As of Date: 04/23/2025 Noted Allergy Reaction COUGH SYRUP (GUAIFENESIN) 07/30/2009 2 - Rash IODINE 07/30/2009 2 - Rash Date Reviewed: 04/17/2025 Reviewed by: Citlalli Brown MA - Fully Assessed Reason for Visit: Medication Question [9418] Prescriptions as of 04/24/2025 - ferrous sulfate 325 mg (65 mg iron) tablet Take 1 tablet by mouth once daily. - sertraline (ZOLOFT) 50 mg tablet Take 2 tablets by mouth once daily. - gabapentin (NEURONTIN) 300 mg capsule Take 1 capsule by mouth once daily for 7 days. - losartan (COZAAR) 100 mg tablet Take 1 tablet by mouth once daily. - pravastatin (PRAVACHOL) 20 mg tablet Take 1 tablet by mouth once daily. - nystatin (MYCOSTATIN) cream Apply to affected area once daily as needed. - dilTIAZem CD (CARDIZEM CD) 120 mg 24 hr capsule Take 1 capsule by mouth once daily. - vibegron (GEMTESA) 75 mg tablet Take 1 tablet by mouth once daily. - acetaminophen (TYLENOL) 325 mg tablet Take 2 tablets by mouth every 6 hours as needed for pain. - carboxymethylcellulose sodium (REFRESH OPHTHALMIC) Use 1 Drop in eyes as needed. - vit C/E/Zn/coppr/lutein/zeax an (PRESERVISION AREDS 2 ORAL) Take 1 capsule by mouth twice daily. - calcium carbonate(CALTRATE 600 600 MG (1,500 MG) TAB) Take by mouth once daily. - aspirin(ECOTRIN LOW STRENGTH 81 MG TAB) Take one(1) tablet daily. Meds Comments as of 03/23/2024: Uses Biofreeze topical in the am on back Problem List As Of Date 04/23/2025 Noted Resolved Calcaneal Spur [M77.30] 07/30/2009 Sprain [...] stenosis [I34.2] 12/31/2023 Encounter Status:Closed by CITLALLI BROWN on 04/24/25 [facility] 04-17-2025 CNOV Office Visit ([facility]AMP[facility] ) -------- TERRIE SAMANO ([id number]) 1935 F Date Time Provider Department 04/17/25 2:00 PM JORDAN LANDON During your visit today, we recorded the following information about you: Pulse Respiration Blood pressure Weight 80/minute 16/minute 110/70 68.4 kg Jordan Landon MD 04/17/2025 2:59 PM Signed Chief Complaint Patient presents with: 6 Month Exam HPI Terrie Samano is a 89 year old female who presents here today for 6 month follow up. Chronic falls. Uses Rolator. Is now residing at [facility]. She left [facility] because they wanted her to be in half-way due to her chronic falls and pt refused. Saw Yelitza Kanpoornima in February for Bacterial Pneumonia. Is still coughing. Finished Tessaltrippiece. Had CXR done 04/12/25 that still showed slight change in RLL No bowel or GI. Follows with Urologist, Dr. Mullen. Uses depends and puts pad down on bed due to night time accidents. Reports no day time accidents. Has overactive bladder and urinary incontinence. Taking Gemtesa 75 mg daily. Edema/DVT: taking Eliquis 5 mg BID and Lasix 20 mg. Lipid: Tries to watch her diet. [facility] does have a set diet plan there, but you can pick other options. Is currently doing PT and they are challenging her. Does do some stretching. Taking Pravastatin 20 mg daily and ASA 81 mg daily. HTN: Does not check BP at home, but the Nurses at [facility] do check her when an incident occurs. no chest pains, dizziness, or shortness of breath. Taking Losartan 100 mg daily and Cardizem 120 mg daily Depression/AGUILAR: Taking Zoloft 50 mg 2 pills once daily. Overall doing pretty well on this regimen. Pain: Chronic back pain and arthritis pain. Takes Gabapentin 300 mg once daily. Does do exercises to help with pain in her back and neck. Receives injections by Dr. Leger in her shoulders and previously in her neck and back. Does do exercises for her back/neck. Past medical history, appointments, medications, allergies reviewed. [...] on File Prior to Visit Medication Sig magnesium hydroxide (MILK OF MAGNESIA) 400 mg/5 mL suspension Take 30 mL by mouth once daily as needed. loperamide (IMODIUM) 2 mg cap(s) Take 1 capsule by mouth four times a day as needed. sertraline (ZOLOFT) 50 mg tablet Take 2 tablets by mouth once daily. gabapentin (NEURONTIN) 300 mg capsule Take 1 capsule by mouth once daily for 7 days. benzonatate (TESSALON PERLE) 100 mg capsule Take 1 capsule by mouth three times a day as needed for cough. losartan (COZAAR) 100 mg tablet Take 1 tablet by mouth once daily. pravastatin (PRAVACHOL) 20 mg tablet Take 1 tablet by mouth once daily. benzonatate (TESSALON PERLE) 100 mg capsule Take 1 capsule by mouth three times a day as needed. nystatin (MYCOSTATIN) cream Apply to affected area once daily as needed. ferrous sulfate 325 mg (65 mg iron) tablet Take 1 tablet by mouth once daily. dilTIAZem CD (CARDIZEM CD) 120 mg 24 hr capsule Take 1 capsule by mouth once daily. vibegron (GEMTESA) 75 mg tablet Take 1 tablet by mouth once daily. acetaminophen (TYLENOL) 325 mg tablet Take 2 tablets by mouth every 6 hours as needed for pain. carboxymethylcellulose sodium (REFRESH OPHTHALMIC) Use 1 Drop in eyes as needed. triamcinolone (KENALOG) 0.025 % cream Apply to affected area twice daily. vit C/E/Zn/coppr/lutein/zeax an (PRESERVISION AREDS 2 ORAL) Take 1 capsule by mouth twice daily. calcium carbonate(CALTRATE 600 600 MG (1,500 MG) TAB) Take by mouth once daily. aspirin(ECOTRIN LOW STRENGTH 81 MG TAB) Take one(1) tablet daily. No current facility-administered medications on file prior to visit. Social History Social History Tobacco Use Smoking status: Never Smokeless tobacco: Never Vaping Use Vaping status: Never Used Substance Use Topics Alcohol use: No Drug use: No EXAM: BP 110/70 Pulse 80 Resp 16 Wt 68.4 kg (150 lb 12.7 oz) S (more content not included)... Normal [facility] TERRIE SAMANO ([id number]) 1935 F Date Time Provider Department 04/16/25 OJRDAN LANDON [facility] During your visit today, we recorded the following information about you: Alison Vallecillo LPN 04/16/2025 11:18 AM Signed Peri from [facility] Home Health calling with OT plan of care, 2 visits weekly for 1 week, then 1 visit weekly for 1 week, then 2 visits weekly for 2 weeks, then 1 visit weekly for 1 week, working on fall prevention with activities. No need for return call. Jordan Landon MD 04/16/2025 3:08 PM Signed Noted I agree with the plan as outlined Jordan Landon MD Allergies As of Date: 04/16/2025 Noted Allergy Reaction COUGH SYRUP (GUAIFENESIN) 07/30/2009 2 - Rash IODINE 07/30/2009 2 - Rash Date Reviewed: 02/21/2025 Reviewed by: Mayda Solomon MA - Fully Assessed Reason for Visit: OT plan of care [Other] Prescriptions as of 04/16/2025 - magnesium hydroxide (MILK OF MAGNESIA) 400 mg/5 mL suspension Take 30 mL by mouth once daily as needed. - loperamide (IMODIUM) 2 mg cap(s) Take 1 capsule by mouth four times a day as needed. - sertraline (ZOLOFT) 50 mg tablet Take 2 tablets by mouth once daily. - gabapentin (NEURONTIN) 300 mg capsule Take 1 capsule by mouth once daily for 7 days. - benzonatate (TESSALON PERLE) 100 mg capsule Take 1 capsule by mouth three times a day as needed for cough. - losartan (COZAAR) 100 mg tablet Take 1 tablet by mouth once daily. - pravastatin (PRAVACHOL) 20 mg tablet Take 1 tablet by mouth once daily. - benzonatate (TESSALON PERLE) 100 mg capsule Take 1 capsule by mouth three times a day as needed. - nystatin (MYCOSTATIN) cream Apply to affected area once daily as needed. - ferrous sulfate 325 mg (65 mg iron) tablet Take 1 tablet by mouth once daily. - dilTIAZem CD (CARDIZEM CD) 120 mg 24 hr capsule Take 1 capsule by mouth once daily. - vibegron (GEMTESA) 75 mg tablet Take 1 tablet by mouth once daily. - acetaminophen (TYLENOL) 325 mg tablet Take 2 tablets by mouth every 6 hours as needed for pain. - carboxymethylcellulose sodium (REFRESH OPHTHALMIC) Use 1 Drop in eyes as needed. - triamcinolone (KENALOG) 0.025 % cream Apply to affected area twice daily. - vit C/E/Zn/coppr/lutein/zeax an (PRESERVISION AREDS 2 ORAL) Take 1 capsule by mouth twice daily. - calcium carbonate(CALTRATE 600 600 MG (1,500 MG) TAB) Take by mouth once daily. - aspirin(ECOTRIN LOW STRENGTH 81 MG TAB) Take one(1) tablet daily. Meds Comments as of 03/23/2024: Uses Biofreeze topical in the am on back Problem List As Of Date 04/16/2025 Noted Resolved Calcaneal Spur [M77.30] 07/30/2009 Sprain [...] valve stenosis [I34.2] 12/31/2023 Encounter Status:Closed by JORDAN LANDON on 04/16/25 [facility] 04-13-20[facility] -------- TERRIE SAMANO ([id number]) 1935 F Date Time Provider Department 04/13/25 CONNOR ALONZO [facility] During your visit today, we recorded the following information about you: Connor Alonzo MD 04/13/2025 4:51 PM Signed Xray still showing slight change in RLL. Is she still having any cough or congestion? If not, call if occurs. Recheck xray in a few weeks Lupe Velasco MA 04/16/2025 5:20 PM Signed Patient was made aware of the results. Patient verbalizes understanding. She denies any cough or congestion Lupe Velasco Ma Allergies As of Date: 04/13/2025 Noted Allergy Reaction COUGH SYRUP (GUAIFENESIN) 07/30/2009 2 - Rash IODINE 07/30/2009 2 - Rash Date Reviewed: 02/21/2025 Reviewed by: Mayda Solomon MA - Fully Assessed Reason for Visit: Results [95] Primary Visit Diagnosis:Abnormal x-ray [R93.89] Order(s):XR CHEST 2V FRONTAL/LAT [[id number]] Order #: [id number] FUTURE Prescriptions as of 04/16/2025 - magnesium hydroxide (MILK OF MAGNESIA) 400 mg/5 mL suspension Take 30 mL by mouth once daily as needed. - loperamide (IMODIUM) 2 mg cap(s) Take 1 capsule by mouth four times a day as needed. - sertraline (ZOLOFT) 50 mg tablet Take 2 tablets by mouth once daily. - gabapentin (NEURONTIN) 300 mg capsule Take 1 capsule by mouth once daily for 7 days. - benzonatate (TESSALON PERLE) 100 mg capsule Take 1 capsule by mouth three times a day as needed for cough. - losartan (COZAAR) 100 mg tablet Take 1 tablet by mouth once daily. - pravastatin (PRAVACHOL) 20 mg tablet Take 1 tablet by mouth once daily. - benzonatate (TESSALON PERLE) 100 mg capsule Take 1 capsule by mouth three times a day as needed. - nystatin (MYCOSTATIN) cream Apply to affected area once daily as needed. - ferrous sulfate 325 mg (65 mg iron) tablet Take 1 tablet by mouth once daily. - dilTIAZem CD (CARDIZEM CD) 120 mg 24 hr capsule Take 1 capsule by mouth once daily. - vibegron (GEMTESA) 75 mg tablet Take 1 tablet by mouth once daily. - acetaminophen (TYLENOL) 325 mg tablet Take 2 tablets by mouth every 6 hours as needed for pain. - carboxymethylcellulose sodium (REFRESH OPHTHALMIC) Use 1 Drop in eyes as needed. - triamcinolone (KENALOG) 0.025 % cream Apply to affected area twice daily. - vit C/E/Zn/coppr/lutein/zeax an (PRESERVISION AREDS 2 ORAL) Take 1 capsule by mouth twice daily. - calcium carbonate(CALTRATE 600 600 MG (1,500 MG) TAB) Take by mouth once daily. - aspirin(ECOTRIN LOW STRENGTH 81 MG TAB) Take one(1) tablet daily. Meds Comments as of 03/23/2024: Uses Biofreeze topical in the am on back Problem List As Of Date 04/13/2025 Noted Resolved Calcaneal Spur [M77.30] 07/30/2009 Sprain [...] valve stenosis [I34.2] 12/31/2023 Encounter Status:Closed by LUPE VELASCO on 04/16/25 Normal [facility] XR CHEST 2V FRONTAL/LATon XR CHEST 2V FRONTAL/LAT * * *Final Repor t* * * DATE OF EXAM: Apr 12 2025 10:05AM WOX [id number] - XR CHEST 2V FRONTAL/LAT / PROCEDURE REASON: Bacterial pneumonia * * * * Physician Interpretation * * * * EXAMINATION: CHEST RADIOGRAPH (2 VIEW FRONTAL and LATERAL) CLINICAL HISTORY: Bacterial pneumonia MQ: [id number] EXAM DATE/TIME: 04/12/2025 10:05 AM COMPARISON: 02/21/2025 RESULT: Lines, tubes, and devices: None. Lungs and pleura: No consolidation. No lung mass. No pleural effusion. No pneumothorax. Interstitial infiltrate, right lower lobe. Pulmonary vascularity normal. Cardiomediastinal silhouette: Mild cardiomegaly Bones and soft tissues: Unremarkable. IMPRESSION: Subtle infiltrate right lower lobe Bottled Beverage Inspector: EARLE Transcribe Date/Time: Apr 13 2025 1:47P Dictated by : QUINCY STARR MD This examination was interpreted and the report reviewed and electronically signed by: QUINCY STARR MD on Apr 13 2025 1:50PM EST [id number] Normal [facility] C[facility]10[facility] -------- TERRIE SAMANO ([id number]) 1935 F Date Time Provider Department 04/10/25 JORDAN LANDON [facility] During your visit today, we recorded the following information about you: Sheila Mahan LPN 04/10/2025 1:00 PM Signed Vonda with [facility] calls to report OT and PT will start care on 04/11/25. Sheila Mahan LPN Allergies As of Date: 04/10/2025 Noted Allergy Reaction COUGH SYRUP (GUAIFENESIN) 07/30/2009 2 - Rash IODINE 07/30/2009 2 - Rash Date Reviewed: 02/21/2025 Reviewed by: Mayda Solomon MA - Fully Assessed Reason for Visit: Patient Update [1234] Prescriptions as of 04/10/2025 - sertraline (ZOLOFT) 50 mg tablet Take 2 tablets by mouth once daily. - gabapentin (NEURONTIN) 300 mg capsule Take 1 capsule by mouth once daily for 7 days. - benzonatate (TESSALON PERLE) 100 mg capsule Take 1 capsule by mouth three times a day as needed for cough. - losartan (COZAAR) 100 mg tablet Take 1 tablet by mouth once daily. - pravastatin (PRAVACHOL) 20 mg tablet Take 1 tablet by mouth once daily. - benzonatate (TESSALON PERLE) 100 mg capsule Take 1 capsule by mouth three times a day as needed. - nystatin (MYCOSTATIN) cream Apply to affected area once daily as needed. - ferrous sulfate 325 mg (65 mg iron) tablet Take 1 tablet by mouth once daily. - dilTIAZem CD (CARDIZEM CD) 120 mg 24 hr capsule Take 1 capsule by mouth once daily. - vibegron (GEMTESA) 75 mg tablet Take 1 tablet by mouth once daily. - acetaminophen (TYLENOL) 325 mg tablet Take 2 tablets by mouth every 6 hours as needed for pain. - carboxymethylcellulose sodium (REFRESH OPHTHALMIC) Use 1 Drop in eyes as needed. - triamcinolone (KENALOG) 0.025 % cream Apply to affected area twice daily. - vit C/E/Zn/coppr/lutein/zeax an (PRESERVISION AREDS 2 ORAL) Take 1 capsule by mouth twice daily. - calcium carbonate(CALTRATE 600 600 MG (1,500 MG) TAB) Take by mouth once daily. - aspirin(ECOTRIN LOW STRENGTH 81 MG TAB) Take one(1) tablet daily. Meds Comments as of 03/23/2024: Uses Biofreeze topical in the am on back Problem List As Of Date 04/10/2025 Noted Resolved Calcaneal Spur [M77.30] 07/30/2009 Sprain [...] valve stenosis [I34.2] 12/31/2023 Encounter Status:Closed by SHEILA MAHAN on 04/10/25 [facility] 04-09-20[facility] -------- TERRIE SAMANO ([id number]) 1935 F Date Time Provider Department 04/09/25 [facility] During your visit today, we recorded the following information about you: Alison Paul RN 04/09/2025 12:07 PM Signed Vonda with [facility] calls to report they received PT/OT eval orders and are requesting most recent OV notes be faxed to them. Faxed to [phone] per request. Alison Paul RN Allergies As of Date: 04/09/2025 Noted Allergy Reaction COUGH SYRUP (GUAIFENESIN) 07/30/2009 2 - Rash IODINE 07/30/2009 2 - Rash Date Reviewed: 02/21/2025 Reviewed by: Mayda Solomon MA - Fully Assessed Reason for Visit: Release Of Medical Records [2017] Prescriptions as of 04/09/2025 - sertraline (ZOLOFT) 50 mg tablet Take 2 tablets by mouth once daily. - gabapentin (NEURONTIN) 300 mg capsule Take 1 capsule by mouth once daily for 7 days. - benzonatate (TESSALON PERLE) 100 mg capsule Take 1 capsule by mouth three times a day as needed for cough. - losartan (COZAAR) 100 mg tablet Take 1 tablet by mouth once daily. - pravastatin (PRAVACHOL) 20 mg tablet Take 1 tablet by mouth once daily. - benzonatate (TESSALON PERLE) 100 mg capsule Take 1 capsule by mouth three times a day as needed. - nystatin (MYCOSTATIN) cream Apply to affected area once daily as needed. - ferrous sulfate 325 mg (65 mg iron) tablet Take 1 tablet by mouth once daily. - dilTIAZem CD (CARDIZEM CD) 120 mg 24 hr capsule Take 1 capsule by mouth once daily. - vibegron (GEMTESA) 75 mg tablet Take 1 tablet by mouth once daily. - acetaminophen (TYLENOL) 325 mg tablet Take 2 tablets by mouth every 6 hours as needed for pain. - carboxymethylcellulose sodium (REFRESH OPHTHALMIC) Use 1 Drop in eyes as needed. - triamcinolone (KENALOG) 0.025 % cream Apply to affected area twice daily. - vit C/E/Zn/coppr/lutein/zeax an (PRESERVISION AREDS 2 ORAL) Take 1 capsule by mouth twice daily. - calcium carbonate(CALTRATE 600 600 MG (1,500 MG) TAB) Take by mouth once daily. - aspirin(ECOTRIN LOW STRENGTH 81 MG TAB) Take one(1) tablet daily. Meds Comments as of 03/23/2024: Uses Biofreeze topical in the am on back Problem List As Of Date 04/09/2025 Noted Resolved Calcaneal Spur [M77.30] 07/30/2009 Sprain [...] valve stenosis [I34.2] 12/31/2023 Encounter Status:Closed by ALISON PAUL on 04/09/25 [facility] 04-03-2025 [facility] Telephone ([facility]) -------- TERRIE SAMANO ([id number]) 1935 F Date Time Provider Department 04/03/25 [facility] During your visit today, we recorded the following information about you: Citlalli Brown MA 04/03/2025 12:51 PM Signed [facility] sends fax asking for PT/OT order be sent to [facility]. Pt continues to fall, very unsteady gait, PT would be beneficial. See fax on provider's desk. ALVARADO Wilkins Mark D, MD 04/03/2025 2:59 PM Signed Order filed; may print and fax as requested MD Kevin Douglass Kathryn, MA 04/03/2025 3:03 PM Signed Orders printed and faxed to [facility]. Citlalli Brown MA Allergies As of Date: 04/03/2025 Noted Allergy Reaction COUGH SYRUP (GUAIFENESIN) 07/30/2009 2 - Rash IODINE 07/30/2009 2 - Rash Date Reviewed: 02/21/2025 Reviewed by: Mayda Solomon MA - Fully Assessed Reason for Visit: Electronic Communication [890] Cmt: [facility] Primary Visit Diagnosis:Poor balance [R26.89] Other Visit Diagnoses:Frequent falls [R29.6] Generalized weakness [R53.1] Order(s):CONSULT TO PHYSICAL THERAPY [9025] Order #: [id number]: 1 FUTURE CONSULT TO GLUER AND SLICER HAND [[id number]] Order #: [id number]: 1 FUTURE Prescriptions as of 04/03/2025 - sertraline (ZOLOFT) 50 mg tablet Take 2 tablets by mouth once daily. - gabapentin (NEURONTIN) 300 mg capsule Take 1 capsule by mouth once daily for 7 days. - benzonatate (TESSALON PERLE) 100 mg capsule Take 1 capsule by mouth three times a day as needed for cough. - losartan (COZAAR) 100 mg tablet Take 1 tablet by mouth once daily. - pravastatin (PRAVACHOL) 20 mg tablet Take 1 tablet by mouth once daily. - benzonatate (TESSALON PERLE) 100 mg capsule Take 1 capsule by mouth three times a day as needed. - nystatin (MYCOSTATIN) cream Apply to affected area once daily as needed. - ferrous sulfate 325 mg (65 mg iron) tablet Take 1 tablet by mouth once daily. - dilTIAZem CD (CARDIZEM CD) 120 mg 24 hr capsule Take 1 capsule by mouth once daily. - vibegron (GEMTESA) 75 mg tablet Take 1 tablet by mouth once daily. - acetaminophen (TYLENOL) 325 mg tablet Take 2 tablets by mouth every 6 hours as needed for pain. - carboxymethylcellulose sodium (REFRESH OPHTHALMIC) Use 1 Drop in eyes as needed. - triamcinolone (KENALOG) 0.025 % cream Apply to affected area twice daily. - vit C/E/Zn/coppr/lutein/zeax an (PRESERVISION AREDS 2 ORAL) Take 1 capsule by mouth twice daily. - calcium carbonate(CALTRATE 600 600 MG (1,500 MG) TAB) Take by mouth once daily. - aspirin(ECOTRIN LOW STRENGTH 81 MG TAB) Take one(1) tablet daily. Meds Comments as of 03/23/2024: Uses Biofreeze topical in the am on back Problem List As Of Date 04/03/2025 Noted Resolved Calcaneal Spur [M77.30] 07/30/2009 Sprain [...] stenosis [I34.2] 12/31/2023 Encounter Status:Closed by CITLALLI BROWN on 04/03/25 Normal [facility] Brain/Head without Contrasto n 04-02-2025 Brain/Head without Contrast [facility] [address] [place] [address] [id number] Brain/Head without Contrast MR#: [id number] Acct: [id number] Name: TERRIE SAMANO Rep #: [id number] : 1935 F 89 From: Emely Sarkar nd, MD PCP: Dr. Jordan Landon MD Status: REG ER Study: Brain/Head without Contrast Date of Exam: 07/19 Exam# [id number] Ordering Dr: Abdelrahman Camacho DO EXAM: BRAIN/HEAD WITHOUT CONTRAST CLINICAL HISTORY: 89 y/o F with FALL, HEAD TRAUMA. COMPARISON: None. TECHNIQUE: Routine CT imaging of the head without IV contrast. Additional multiplanar reformats were obtained. Dose reduction techniques were used including intermediate exposure control (AEC),iterative reconstruction technique, and/or mA and/or KV dose adjustments based on patient's size. FINDINGS: Moderate generalized cerebral volume loss with concordant prominence of the ventricles and subarachnoid spaces. Moderate patchy supratentorial white matter hypodensities. 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 No acute intracranial hemorrhage or herniation. Prior scleral banding. Mucosal thickening of the bilateral maxillary sinuses. Chronic right inferior orbital wall fracture deformity. Trace secretions within the sphenoid sinus. No acute calvarial fracture. Small posterior left scalp hematoma and laceration. CT/Brain/Head without Contrast IMPRESSION: 1. No acute intracranial finding. 2. Small posterior left scalp hematoma and laceration. Reading Location: [facility] CC: Dr. Jordan Landon MD; Dr. Abdelrahman Camacho DO Bottled Beverage Inspector: Signed [facility] 04-02-2025 [facility] Telephone (FAMPWS) -------- TERRIE SAMANO ([id number]) 1935 F Date Time Provider Department 04/02/25 JORDAN LANDON [facility] During your visit today, we recorded the following information about you: Lyn Quick MA 04/02/2025 1:14 PM Signed Office received fax from [facility] regarding an incident report, where pt was found on her knee's in her room. Routed incident note to PCP to review. Once reviewed fax back to [place] at [phone]. ALVARADO Kaur Rilee, MA 04/02/2025 3:45 PM Signed Form completed and faxed back to number below. Lyn Quick MA Allergies As of Date: 04/02/2025 Noted Allergy Reaction COUGH SYRUP (GUAIFENESIN) 07/30/2009 2 - Rash IODINE 07/30/2009 2 - Rash Date Reviewed: 02/21/2025 Reviewed by: Mayda Solomon MA - Fully Assessed Reason for Visit: Electronic Communication [890] Cmt: Misael Prescriptions as of 04/02/2025 - sertraline (ZOLOFT) 50 mg tablet Take 2 tablets by mouth once daily. - gabapentin (NEURONTIN) 300 mg capsule Take 1 capsule by mouth once daily for 7 days. - benzonatate (TESSALON PERLE) 100 mg capsule Take 1 capsule by mouth three times a day as needed for cough. - losartan (COZAAR) 100 mg tablet Take 1 tablet by mouth once daily. - pravastatin (PRAVACHOL) 20 mg tablet Take 1 tablet by mouth once daily. - benzonatate (TESSALON PERLE) 100 mg capsule Take 1 capsule by mouth three times a day as needed. - nystatin (MYCOSTATIN) cream Apply to affected area once daily as needed. - ferrous sulfate 325 mg (65 mg iron) tablet Take 1 tablet by mouth once daily. - dilTIAZem CD (CARDIZEM CD) 120 mg 24 hr capsule Take 1 capsule by mouth once daily. - vibegron (GEMTESA) 75 mg tablet Take 1 tablet by mouth once daily. - acetaminophen (TYLENOL) 325 mg tablet Take 2 tablets by mouth every 6 hours as needed for pain. - carboxymethylcellulose sodium (REFRESH OPHTHALMIC) Use 1 Drop in eyes as needed. - triamcinolone (KENALOG) 0.025 % cream Apply to affected area twice daily. - vit C/E/Zn/coppr/lutein/zeax an (PRESERVISION AREDS 2 ORAL) Take 1 capsule by mouth twice daily. - calcium carbonate(CALTRATE 600 600 MG (1,500 MG) TAB) Take by mouth once daily. - aspirin(ECOTRIN LOW STRENGTH 81 MG TAB) Take one(1) tablet daily. Meds Comments as of 03/23/2024: Uses Biofreeze topical in the am on back Problem List As Of Date 04/02/2025 Noted Resolved Calcaneal Spur [M77.30] 07/30/2009 Sprain [...] stenosis [I34.2] 12/31/2023 Encounter Status:Closed by LYN QUICK on 04/02/25 Normal [facility] Emergency Department Summary on 04-02-2025 Emergency Department Summary [facility] Medical Records Department [address] [place] [id number] Emergency Department Summary 04/02/25 MR#: [id number] Acct: [id number] Name: TERRIE SAMANO Rep #: [id number] : 1935 89 From: Abdelrahman Caamcho DO PCP: Dr. Jordan Landon MD Status:DEP ER Location: ED HPI History of Present Illness Chief Complaint: Laceration [facility] Medical History (Updated 04/02/25 @ 17:26 by Melisa Holt) Primary hyperparathyroidism Anemia, unspecified Other specified anxiety disorders Unspecified urinary incontinence Overactive bladder Radiculopathy, lumbar region Acute embolism and thrombosis of unspecified deep veins of right proximal lower extremity Depression Mixed hyperlipidemia Obesity Frequent falls Anxiety and depression Chronic anemia Hyperlipidemia Osteoarthritis HTN (hypertension) Fibromyalgia Spinal stenosis Macular degeneration Urine incontinence Fall Home Medications ???Medication ???Instructions ???Recorded ???Last Taken ???Type aspirin 81 mg tablet,delayed 81 mg PO DAILY@0800 01/15/17 Unkno wn History release calcium 600 mg (as 1 ea PO DAILY 01/15/17 Unknown His tory carbonate)-vitamin D3 20 mcg (800 unit) tablet (Caltrate with Vitamin D3) pravastatin 20 mg tablet 20 mg PO QHS 01/15/17 Unknown Hist ory sertraline 50 mg tablet 50 mg PO DAILY 01/15/17 Unknown Hi story vit C 250 mg-vit E 90 mg-zinc 40 1 tab PO DAILY 10/14/17 Unknown Hi story mg-copper 1 [id number]-[id number]-ixxetu capsule (PreserVision AREDS-2) magnesium hydroxide 400 mg/5 mL 30 ml PO DAILY PRN PRN 06/16/18 Un known Rx oral suspension Constipation ##14 diltiazem HCl 120 mg 120 mg PO DAILY 11/20/21 Unknown H istory capsule,extended release 24 hr losartan 100 mg tablet 100 mg PO DAILY 01/04/23 Unknown H istory acetaminophen 325 mg capsule 650 mg PO Q6H PRN fever or pain Unknown History benzonatate 100 mg capsule 100 mg PO Q8H PRN cough 04/02/25 U nknown History carboxymethylcellulose sodium 0.5 1 drp EACH EYE DAILY 04/02/25 Unk nown History % eye drops (Lubricant Eye Drops) gabapentin 300 mg capsule 300 mg PO DAILY 04/02/25 Unknown H istory loperamide 2 mg capsule 2 mg PO Q6H PRN loose stool Unknown History (Anti-Diarrheal (loperamide)) vibegron 75 mg tablet (Gemtesa) 75 mg PO DAILY 04/02/25 Unknown Hi story Allergy/AdvReac Type Severity Reaction Status Date / Time guaifenesin Allergy Intermediate Rash Verified 04/02/25 17:20 iodine Allergy Rash Verified 04/02/25 17:20 COUGH SYRUP W/IODINE Allergy Rash Uncoded 01/03/23 22:16 Family History Mother Colon cancer Maternal family history of colon cancer with metastatic disease to the liver Father Prostate cancer Paternal family history of prostate cancer with metastatic disease to the bones. Sister Colon cancer Breast cancer Surgical History Status post hip surgery S/P carpal tunnel release S/P cataract extraction History of eye surgery History of hysterectomy History of appendectomy History of tonsillectomy and adenoidectomy Social History housing: assisted living facility Smoking Status: Never smoker alcohol intake: never substance use type: does not use EXAM Physical Exam Const Vital Signs: 04/02/25 17:17 04/02/25 17:23 04/02/25 17:24 Temperature 98.6 F Temperature Source Oral Pulse Rate 72 72 Respiratory Rate 16 Respiratory Effort Non-Labored Short of Breath Respiratory Depth Normal Respiratory Pattern Normal Blood Pressure 124/56 H Blood Pressure Mean 78 Pulse Ox 88 93 Oxygen Delivery Method Room Air Nasal Cannula Oxygen Flow Rate (L/min) 2 04/02/25 18:28 04/02/25 18:29 Temperature Temperature Source Pulse Rate 72 Respiratory Rate 16 Respiratory Effort Respiratory Depth Respiratory Pattern Blood Pressure 124/56 H Blood Pressure Mean 78 Pulse Ox 90 92 Oxygen Delivery Method Room Air Nasal Cannula Oxygen Flow Rate (L/min) 2 MDM MDM MDM Narrative Medical decision making narrative: HISTORY OF PRESENT ILLNESS: Chief complaint: Fall, head laceration 89-year-old female history of debility and hypertension, hyperlipidemia, history frequent falls, DNR CC presents after fall today. Notes she had 2 falls today. Notes laceration to left scalp. REVIEW OF SYSTEMS: Pertinent positives: scalp laceration Fall, head trauma, Pertinent negatives: Chest pain, shortness of breath PHYSICAL EXAM: Nursing triage notes reviewed, Vital signs reviewed primary Survey Airway: Intact Breathing: Bilateral breath soun (more content not included)... Normal [facility] Spine Cervical without Contr ason 04-02-2025 Spine Cervical without Contras [facility] [address] [place] [address] Spine Cervical without Contras MR#: [id number] Acct: [id number] Name: TERRIE SAMANO Rep #: [id number] : 1935 F 89 From: Emely Sarkar nd, MD PCP: Dr. oJrdan Landon MD Status: REG ER Study: Spine Cervical without Contras Date of Exam: 0 04/02/25 Exam# [id number] Ordering Dr: Abdelrahman Camacho DO PROCEDURE: SPINE CERVICAL WITHOUT CONTRAS 04/02/2025 REASON FOR EXAM: FALL, NECK PAIN TECHNIQUE: Cervical spine CT without contrast. Coronal and Sagittal reconstruction series were provided. One or more dose reduction techniques were used (e.g., Automated exposure control, adjustment of the mA and/or kV according to patient size, use of iterative reconstruction technique RADIATION DOSE SUMMARY: CTDlvol: 20 mGy DLP: 400 mGycm COMPARISON: CT C-spine 09/30/2024. FINDINGS: Alignment: Mild exaggeration of the normal cervical lordosis. No traumatic listhesis. Vertebrae: No acute fracture. Mild multilevel chronic vertebral body height loss. Multilevel degenerative disc disease, posterior disc osteophyte complexes and facet and uncovertebral hypertrophy resulting in mild central and neural foraminal stenosis. Soft Tissues: No prevertebral hematoma. Calcific plaque of the bilateral cervical carotid arteries and visualized aortic arch. CT/Spine Cervical without Contras IMPRESSION: NO ACUTE CERVICAL FRACTURE. DEGENERATIVE CHANGES. Reading Location: [facility] CC: Dr. Jordan Landon MD; Dr. Abdelrahman Camacho DO Bottled Beverage Inspector: Signed [facility] 03-12-2025 [facility] Telephone (FAMPWS) -------- TERRIE SAMANO ([id number]) 1935 F Date Time Provider Department 03/12/25 JORDAN LANDON During your visit today, we recorded the following information about you: Pat Vidal 03/12/2025 11:22 AM Signed Patient asking for a refill for a medication that is . Patient is out of medication today. gabapentin (NEURONTIN) 300 mg capsule () Patient last seen 02/27/25 Future visit scheduled: No PHARMACY: Citlalli Jones MA 03/12/2025 11:46 AM Signed Prescription Refill Information The patient has been identified by name and date of : Yes Caregiver verified no other encounters exist for this prescription request: Yes Caregiver confirmed with patient/requestor that no other refills are due, in the near future, with this provider at this time: No The last office visit in the department: 02/27/25 Does the patient have a future office visit with this provider/department: Yes Requested Prescriptions Pending Prescriptions Disp Refills gabapentin (NEURONTIN) 300 mg capsule 90 capsule 1 Sig: Take 1 capsule by mouth once daily for 180 days. Citlalli Brown MA March 12, 2025 11:46 AM Jordan Landon MD 03/12/2025 1:26 PM Signed OK to refill as ordered MD Efrem Douglass Krystle, RN 03/14/2025 4:48 PM Signed DaLisa with [facility] calls to let provider know that they received the cancellation order for gabapentin but medication had already been processed and they were unable to cancel it before it was shipped to patient. Alison Paul RN Allergies As of Date: 03/12/2025 Noted Allergy Reaction COUGH SYRUP (GUAIFENESIN) 07/30/2009 2 - Rash IODINE 07/30/2009 2 - Rash Date Reviewed: 02/21/2025 Reviewed by: Mayda Solomon MA - Fully Assessed Reason for Visit: requesting medication that is [Other] Visit Diagnosis:Lumbar radiculopathy [M54.16] Prescriptions as of 03/14/2025 - gabapentin (NEURONTIN) 300 mg capsule Take 1 capsule by mouth once daily for 7 days. - benzonatate (TESSALON PERLE) 100 mg capsule Take 1 capsule by mouth three times a day as needed for cough. - losartan (COZAAR) 100 mg tablet Take 1 tablet by mouth once daily. - pravastatin (PRAVACHOL) 20 mg tablet Take 1 tablet by mouth once daily. - benzonatate (TESSALON PERLE) 100 mg capsule Take 1 capsule by mouth three times a day as needed. - nystatin (MYCOSTATIN) cream Apply to affected area once daily as needed. - ferrous sulfate 325 mg (65 mg iron) tablet Take 1 tablet by mouth once daily. - dilTIAZem CD (CARDIZEM CD) 120 mg 24 hr capsule Take 1 capsule by mouth once daily. - sertraline (ZOLOFT) 50 mg tablet TAKE 2 TABLETS ONE TIME DAILY - vibegron (GEMTESA) 75 mg tablet Take 1 tablet by mouth once daily. - acetaminophen (TYLENOL) 325 mg tablet Take 2 tablets by mouth every 6 hours as needed for pain. - carboxymethylcellulose sodium (REFRESH OPHTHALMIC) Use 1 Drop in eyes as needed. - triamcinolone (KENALOG) 0.025 % cream Apply to affected area twice daily. - vit C/E/Zn/coppr/lutein/zeax an (PRESERVISION AREDS 2 ORAL) Take 1 capsule by mouth twice daily. - calcium carbonate(CALTRATE 600 600 MG (1,500 MG) TAB) Take by mouth once daily. - aspirin(ECOTRIN LOW STRENGTH 81 MG TAB) Take one(1) tablet daily. 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 Medications Discontinued During This Encounter Prescriptions - gabapentin (NEURONTIN) 300 mg capsule (Discontinued) Take 1 capsule by mouth once daily for 180 days. Encounter Status:Closed by SHEILA MAHAN on 03/12/25 [facility] CNOVon 02-27-2025 CNOV Office Visit (JELANIWS ) -------- TERRIE SAMANO ([id number]) 1935 F Date Time Provider Department 02/27/25 3:00 PM YELITZA SAMAYOA During your visit today, we recorded the following information about you: Pulse Respiration Blood pressure 82/minute 16/minute 113/72 August Pro LPN 02/27/2025 6:45 PM Signed [facility]oned [facility]. They are sending [place] another day's worth (2 tablets) of doxy. HUGO Rojas Christy, APRN.CNP 02/27/2025 3:43 PM Signed Continue taking both antibiotics as prescribed until the full courses are complete. A repeat chest x-ray is ordered in 2-3 weeks to verify that your pneumonia has completely resolved. You do not need an appointment for this; just follow the scheduling instructions provided when you?re ready. Monitor your symptoms. If you experience any worsening, such as increased cough, fever, or shortness of breath, please contact our office. Yelitza Samayoa APRN.CNP 02/27/2025 6:45 PM Signed This is a 89 year old female who presents today with: Terrie is an 89-year-old female presenting for follow-up after being diagnosed with right lower lobe pneumonia. HISTORY OF PRESENT ILLNESS: Pneumonia: - Diagnosed with right lower lobe pneumonia on 02/21 after presenting to urgent care with a cough. - Initiated on Augmentin and doxycycline; has one day remaining of Augmentin and two days remaining of doxycycline. - Medications dispensed by [facility], associated with [facility]. - Reports significant improvement in symptoms. - Minimal cough; denies productive cough, fevers, chills, or dyspnea. PAST MEDICAL HISTORY: PAST MEDICAL HISTORY Diagnosis Date Chronic back pain Followed by Dr. Whitehead Macular degeneration Mixed hyperlipidemia Hyperlipidemia PMH - PAST MEDICAL HISTORY OF 2001 left eye detached retina Unspecified essential hypertension Essential hypertension PAST SURGICAL HISTORY Procedure Laterality Date APPENDECTOMY 12/1962 PAST SURGICAL HISTORY OF cataract sx left eye TONSILLECTOMY AND ADENOIDECTOMY T/A (under age 14 years) TOTAL ABDOMINAL HYSTERECT W/WO RMVL TUBE OVARY 04/07/1978 Hysterectomy, CAROLE ALLERGIES Cough Syrup [Guaifenesin] and Iodine MEDICATIONS Current Outpatient Medications Medication Sig doxycycline (VIBRA-TABS) 100 mg tablet Take 1 tablet by mouth two times a day for 7 days. benzonatate (TESSALON PERLE) 100 mg capsule Take 1 capsule by mouth three times a day as needed for cough. losartan (COZAAR) 100 mg tablet Take 1 tablet by mouth once daily. pravastatin (PRAVACHOL) 20 mg tablet Take 1 tablet by mouth once daily. benzonatate (TESSALON PERLE) 100 mg capsule Take 1 capsule by mouth three times a day as needed. nystatin (MYCOSTATIN) cream Apply to affected area once daily as needed. ferrous sulfate 325 mg (65 mg iron) tablet Take 1 tablet by mouth once daily. gabapentin (NEURONTIN) 300 mg capsule Take 1 capsule by mouth once daily for 180 days. dilTIAZem CD (CARDIZEM CD) 120 mg 24 hr capsule Take 1 capsule by mouth once daily. sertraline (ZOLOFT) 50 mg tablet TAKE 2 TABLETS ONE TIME DAILY vibegron (GEMTESA) 75 mg tablet Take 1 tablet by mouth once daily. acetaminophen (TYLENOL) 325 mg tablet Take 2 tablets by mouth every 6 hours as needed for pain. carboxymethylcellulose sodium (REFRESH OPHTHALMIC) Use 1 Drop in eyes as needed. triamcinolone (KENALOG) 0.025 % cream Apply to affected area twice daily. vit C/E/Zn/coppr/lutein/zeax an (PRESERVISION AREDS 2 ORAL) Take 1 capsule by mouth twice daily. calcium carbonate(CALTRATE 600 600 MG (1,500 MG) TAB) Take by mouth once daily. aspirin(ECOTRIN LOW STRENGTH 81 MG TAB) Take one(1) tablet daily. No current facility-administered medications for this visit. FAMILY HISTORY Problem Relation Age of Onset Hypertension Mother Colon Cancer Mother Hypertension Father Prostate Cancer Father Colon Cancer Sister Diabetes Brother Social History Tobacco Use Smoking status: Never Smokeless tobacco: Never Vaping Use Vaping status: Never Used Substance Use Topics Alcohol use: No Drug use: No REVIEW OF SYSTEMS Constitutional: (-) fever, (-) chills Respiratory: (+) mild cough, (-) sputum, (-) shortness of breath EXAM: BP 113/72 Pulse 82 Resp 16 SpO2 93% PHYSICAL EXAM: General Appearance: Well appearing, alert, in no acute distress, well-hydrated, well nourished.. Skin: Skin color, texture, turgor normal, no suspicious rashes or lesions. Head: Normocephalic, no masses, lesions, tenderness or abnormalities. Eyes: Anicteric sclera.Extraocular movements are intact. . Lungs: Lungs clear to auscultation. No wheezing, rhonchi, rales.. Heart: RRR, + murmur. Neurologic: answers questions appropriately. ASSESSMENT/PLAN 1. Bacterial pneumonia (J15.9) - Diagnosed with right lower lobe pneumonia on February 21 via (more content not included)... Normal [facility]FAMHanna[facility] -------- TERRIE SAMANO ([id number]) 1935 F Date Time Provider Department 02/27/25 YELITZA SAMAYOA [facility] During your visit today, we recorded the following information about you: Yelitza Samayoa APRN.COMMUNITY LIVING SPECIALIST 02/27/2025 3:33 PM Signed Can we please call Misael. It looks like she was ordered doxycycline 100 mg BID for 7 days. She showed me the label of the medication received, and it states for 6 days with only 12 dispensed (not 14). This is coming from [facility] pharmacy (per patient, this is [place]'s pharmacy). August Pro LPN 02/27/2025 3:47 PM Signed [facility]oned [facility]. They are sending Misael another day's worth (2 tablets) of doxy. August Pro LPN Allergies As of Date: 02/27/2025 Noted Allergy Reaction COUGH SYRUP (GUAIFENESIN) 07/30/2009 2 - Rash IODINE 07/30/2009 2 - Rash Date Reviewed: 02/21/2025 Reviewed by: Mayda Solomon MA - Fully Assessed Prescriptions as of 02/27/2025 - doxycycline (VIBRA-TABS) 100 mg tablet Take 1 tablet by mouth two times a day for 7 days. - benzonatate (TESSALON PERLE) 100 mg capsule Take 1 capsule by mouth three times a day as needed for cough. - losartan (COZAAR) 100 mg tablet Take 1 tablet by mouth once daily. - pravastatin (PRAVACHOL) 20 mg tablet Take 1 tablet by mouth once daily. - benzonatate (TESSALON PERLE) 100 mg capsule Take 1 capsule by mouth three times a day as needed. - nystatin (MYCOSTATIN) cream Apply to affected area once daily as needed. - ferrous sulfate 325 mg (65 mg iron) tablet Take 1 tablet by mouth once daily. - gabapentin (NEURONTIN) 300 mg capsule Take 1 capsule by mouth once daily for 180 days. - dilTIAZem CD (CARDIZEM CD) 120 mg 24 hr capsule Take 1 capsule by mouth once daily. - sertraline (ZOLOFT) 50 mg tablet TAKE 2 TABLETS ONE TIME DAILY - vibegron (GEMTESA) 75 mg tablet Take 1 tablet by mouth once daily. - acetaminophen (TYLENOL) 325 mg tablet Take 2 tablets by mouth every 6 hours as needed for pain. - carboxymethylcellulose sodium (REFRESH OPHTHALMIC) Use 1 Drop in eyes as needed. - triamcinolone (KENALOG) 0.025 % cream Apply to affected area twice daily. - vit C/E/Zn/coppr/lutein/zeax an (PRESERVISION AREDS 2 ORAL) Take 1 capsule by mouth twice daily. - calcium carbonate(CALTRATE 600 600 MG (1,500 MG) TAB) Take by mouth once daily. - aspirin(ECOTRIN LOW STRENGTH 81 MG TAB) Take one(1) tablet daily. Meds Comments as of 03/23/2024: Uses Biofreeze topical in the am on back Problem List As Of Date 02/27/2025 Noted Resolved Calcaneal Spur [M77.30] 07/30/2009 Sprain [...] valve stenosis [I34.2] 12/31/2023 Encounter Status:Closed by AUGUST PRO on 02/27/25 [facility] CNOVon 02-21-2025 CNOV Office Visit (UCWSTR ) -------- TERRIE SAMANO ([id number]) 1935 F Date Time Provider Department 02/21/25 2:30 PM KEYLA GLOVER WSTR During your visit today, we recorded the following information about you: Temperature Pulse Respiration Blood pressure 99.3 degrees 86/minute 18/minute 118/66 Weight 70.9 kg Keyla Glover, CASSANDRA.COMMUNITY LIVING SPECIALIST 02/21/2025 3:52 PM Signed [facility] Subjective Terrie Samano is a 89 year old female. Patient presents with: Chest Congestion: cough x 2 weeks 89 year old female with PMH HTN, hyperlipidemia, OAB, macular degeneration presents for illness. Acute onset 2 weeks ago +cough +productive Denies hemoptysis Denies CP Denies dyspnea Denies abdominal pain Endorses that she recently moved from [facility] for 11 years and She has recently moved to [place] The history is provided by the patient. No microbiology lab analyst was used. Cough This is a new problem. The current episode started more than 1 week ago. The problem occurs constantly. The problem has been gradually worsening. The cough is Productive of sputum. There has been no fever. Associated symptoms include chills and rhinorrhea. Pertinent negatives include no chest pain, no sweats, no weight loss, no ear congestion, no ear pain, no headaches, no sore throat, no myalgias, no shortness of breath, no wheezing and no eye redness. She has tried nothing for the symptoms. The treatment provided no relief. She is not a smoker. Her past medical history does not include bronchitis, pneumonia, bronchiectasis, COPD, emphysema or asthma. PAST MEDICAL HISTORY Diagnosis Date Chronic back pain Followed by Dr. Whitehead Macular degeneration Mixed hyperlipidemia Hyperlipidemia PMH - PAST MEDICAL HISTORY OF 2001 left eye detached retina Unspecified essential hypertension Essential hypertension PAST SURGICAL HISTORY Procedure Laterality Date APPENDECTOMY 12/1962 PAST SURGICAL HISTORY OF cataract sx left eye TONSILLECTOMY AND ADENOIDECTOMY T/A (under age 14 years) TOTAL ABDOMINAL HYSTERECT W/WO RMVL TUBE OVARY 04/07/1978 Hysterectomy, CAROLE ALLERGIES Cough Syrup [Guaifenesin] and Iodine MEDICATIONS losartan (COZAAR) 100 mg tablet Take 1 tablet by mouth once daily. pravastatin (PRAVACHOL) 20 mg tablet Take 1 tablet by mouth once daily. benzonatate (TESSALON PERLE) 100 mg capsule Take 1 capsule by mouth three times a day as needed. nystatin (MYCOSTATIN) cream Apply to affected area once daily as needed. ferrous sulfate 325 mg (65 mg iron) tablet Take 1 tablet by mouth once daily. gabapentin (NEURONTIN) 300 mg capsule Take 1 capsule by mouth once daily for 180 days. dilTIAZem CD (CARDIZEM CD) 120 mg 24 hr capsule Take 1 capsule by mouth once daily. sertraline (ZOLOFT) 50 mg tablet TAKE 2 TABLETS ONE TIME DAILY vibegron (GEMTESA) 75 mg tablet Take 1 tablet by mouth once daily. acetaminophen (TYLENOL) 325 mg tablet Take 2 tablets by mouth every 6 hours as needed for pain. carboxymethylcellulose sodium (REFRESH OPHTHALMIC) Use 1 Drop in eyes as needed. triamcinolone (KENALOG) 0.025 % cream Apply to affected area twice daily. vit C/E/Zn/coppr/lutein/zeax an (PRESERVISION AREDS 2 ORAL) Take 1 capsule by mouth twice daily. calcium carbonate(CALTRATE 600 600 MG (1,500 MG) TAB) Take by mouth once daily. aspirin(ECOTRIN LOW STRENGTH 81 MG TAB) Take one(1) tablet daily. doxycycline (VIBRA-TABS) 100 mg tablet Take 1 tablet by mouth two times a day for 7 days. benzonatate (TESSALON PERLE) 100 mg capsule Take 1 capsule by mouth three times a day as needed for cough. amoxicillin-clavulanate potassium (AUGMENTIN) 875-125 mg per tablet Take 1 tablet by mouth two times a day for 5 days. FAMILY HISTORY Problem Relation Age of Onset Hypertension Mother Colon Cancer Mother Hypertension Father Prostate Cancer Father Colon Cancer Sister Diabetes Brother Social History Tobacco Use Smoking status: Never Smokeless tobacco: Never Vaping Use Vaping status: Never Used Substance Use Topics Alcohol use: No Drug use: No Review of Systems Constitutional: Positive for chills. Negative for weight loss. HENT: Positive for rhinorrhea. Negative for ear pain and sore throat. Eyes: Negative for redness. Respiratory: Positive for cough. Negative for shortness of breath and wheezing. Cardiovascular: Negative for chest pain. Musculoskeletal: Negative for myalgias. Neurological: Negative for headaches. Objective BP 118/66 Pulse 86 Temp 37.4 ?C (99.3 ?F) Resp 18 Wt 70.9 kg (156 lb 4.9 oz) SpO2 94% BMI 33.82 kg/m? Physical Exam Vitals and nursing note reviewed. Constitutional: General: She is not in acute distress. Appearance: Normal appearance. She is normal weight. She is not ill-appearing, toxic-appearing or diaphoretic. HENT: Head: Normocephalic and (more content not included)... Normal [facility] XR CHEST 2V FRONTAL/LATon XR CHEST 2V FRONTAL/LAT * * *Final Repor t* * * DATE OF EXAM: Feb 21 2025 2:50PM WOX [id number] - XR CHEST 2V FRONTAL/LAT / PROCEDURE REASON: Acute cough * * * * Physician Interpretation * * * * EXAMINATION: CHEST RADIOGRAPH (2 VIEW FRONTAL and LATERAL) CLINICAL HISTORY: Acute cough MQ: XC2_6 EXAM DATE/TIME: 02/21/2025 2:50 PM COMPARISON: No relevant prior studies available. RESULT: Lines, tubes, and devices: None. Lungs and pleura: Mild patchy opacities in the right lower lobe. Trace pleural effusions. No pneumothorax. Cardiomediastinal silhouette: Mildly enlarged cardiomediastinal silhouette. Bones and soft tissues: Degenerative changes are present within the thoracic spine. IMPRESSION: 1. Mild patchy opacities in the right lower lobe suspect for pneumonia in the appropriate clinical setting. 2. Trace pleural effusions. Bottled Beverage Inspector: EARLE Transcribe Date/Time: Feb 21 2025 2:50P Dictated by : DIANNE MORRIS MD This examination was interpreted and the report reviewed and electronically signed by: DIANNE MORRIS MD on Feb 21 2025 2:51PM EST [id number] Normal [facility] XR Chest PA and Lateralon IMPRESSION: 1. Mild patchy opacities in the right lower lobe suspect for pneumonia in the appropriate clinical setting. 2. Trace pleural effusions. Bottled Beverage Inspector: EARLE Transcribe Date/Time: Feb 21 2025 2:50P Dictated by : DIANNE MORRIS MD This examination was interpreted and the report reviewed and electronically signed by: DIANNE MORRIS MD on Feb 21 2025 2:51PM [facility] DIVISION OF RADIOLOGY * * *Final Report* * * DATE OF EXAM: Feb 21 2025 2:50PM WOX [id number] - XR CHEST 2V FRONTAL/LAT / PROCEDURE REASON: Acute cough * * * * Physician Interpretation * * * * EXAMINATION: CHEST RADIOGRAPH (2 VIEW FRONTAL & LATERAL) CLINICAL HISTORY: Acute cough MQ: XC2_6 EXAM DATE/TIME: 02/21/2025 2:50 PM COMPARISON: No relevant prior studies available. RESULT: Lines, tubes, and devices: None. Lungs and pleura: Mild patchy opacities in the right lower lobe. Trace pleural effusions. No pneumothorax. Cardiomediastinal silhouette: Mildly enlarged cardiomediastinal silhouette. Bones and soft tissues: Degenerative changes are present within the thoracic spine. DIVISION OF RADIOLOGY Provider, [facility] - 02/21/2025 * * *Final Report* * * DATE OF EXAM: Feb 21 2025 2:50PM WOX [id number] - XR CHEST 2V FRONTAL/LAT / PROCEDURE REASON: Acute cough * * * * Physician Interpretation * * * * EXAMINATION: CHEST RADIOGRAPH (2 VIEW FRONTAL & LATERAL) CLINICAL HISTORY: Acute cough MQ: XC2_6 EXAM DATE/TIME: 02/21/2025 2:50 PM COMPARISON: No relevant prior studies available. RESULT: Lines, tubes, and devices: None. Lungs and pleura: Mild patchy opacities in the right lower lobe. Trace pleural effusions. No pneumothorax. Cardiomediastinal silhouette: Mildly enlarged cardiomediastinal silhouette. Bones and soft tissues: Degenerative changes are present within the thoracic spine. IMPRESSION IMPRESSION: 1. Mild patchy opacities in the right lower lobe suspect for pneumonia in the appropriate clinical setting. 2. Trace pleural effusions. Bottled Beverage Inspector: EARLE Transcribe Date/Time: Feb 21 2025 2:50P Dictated by : DIANNE MORRIS MD This examination was interpreted and the report reviewed and electronically signed by: DIANNE MORRIS MD on Feb 21 2025 2:51PM EST [facility] Radiology Study observation (narrative) [facility] XR Chest PA and LateralOrder ed By: [facility] Provider on 02-21-2025 [facility] CNCOon 02-20-2025 CNCO Letter Text Normal [facility] CNPNon 02-08-2025 CNPN Telephone (FAMPWS) -------- TERRIE SAMANO ([id number]) 1935 F Date Time Provider Department 02/08[facility] During your visit today, we recorded the following information about you: Lyn Quick MA 02/08/2025 11:56 AM Signed Office received fax from [employer] system master with Incident note on 02/07/25. Please review and advise. Once advised, fax back to [phone]. Lyn Quick MA Incident: This Nurse called to resident room per aide, stating she was on the floor. Upon entering the room, resident was laying on her back, flat on the floor. She denied any injuries, but said my head did hit the floor, when I fell backwards. Assisted resident up x 2 assists and started neuro's, since she hit her head. She has an abrasion on top of right foot and a small skin tear to mid left [place] area. She was alert and oriented x 3, neuro's and vitals all WNL. Will continue to monitor. Nurse Noemí Serrano LPN. Jordan Landon MD 02/08/2025 11:59 AM Signed Noted; continue to monitor Rx for Tessalon sent to [facility] in response to electronic request 02/06 MD Reynold Douglass Rilee, MA 02/08/2025 12:27 PM Signed This has been faxed back to [phone]. Lyn Quick MA Allergies As of Date: 02/08/2025 Noted Allergy Reaction COUGH SYRUP (GUAIFENESIN) 07/30/2009 2 - Rash IODINE 07/30/2009 2 - Rash Date Reviewed: 10/16/2024 Reviewed by: Sonya Kenyon APRN.COMMUNITY LIVING SPECIALIST - Fully Assessed Reason for Visit: Electronic Communication [890] [facility] Order(s):benzonatate (TESSALON PERLE) 100 mg capsuleTake 1 capsule by mouth three times a day as needed.Disp: 20 capsuleRfl: 2 Prescriptions as of 02/08/2025 - benzonatate (TESSALON PERLE) 100 mg capsule Take 1 capsule by mouth three times a day as needed. - nystatin (MYCOSTATIN) cream Apply to affected area once daily as needed. - ferrous sulfate 325 mg (65 mg iron) tablet Take 1 tablet by mouth once daily. - gabapentin (NEURONTIN) 300 mg capsule Take 1 capsule by mouth once daily for 180 days. - dilTIAZem CD (CARDIZEM CD) 120 mg 24 hr capsule Take 1 capsule by mouth once daily. - losartan (COZAAR) 100 mg tablet Take 1 tablet by mouth once daily. - pravastatin (PRAVACHOL) 20 mg tablet Take 1 tablet by mouth once daily. - sertraline (ZOLOFT) 50 mg tablet TAKE 2 TABLETS ONE TIME DAILY - vibegron (GEMTESA) 75 mg tablet Take 1 tablet by mouth once daily. - acetaminophen (TYLENOL) 325 mg tablet Take 2 tablets by mouth every 6 hours as needed for pain. - carboxymethylcellulose sodium (REFRESH OPHTHALMIC) Use 1 Drop in eyes as needed. - triamcinolone (KENALOG) 0.025 % cream Apply to affected area twice daily. - vit C/E/Zn/coppr/lutein/zeax an (PRESERVISION AREDS 2 ORAL) Take 1 capsule by mouth twice daily. - calcium carbonate(CALTRATE 600 600 MG (1,500 MG) TAB) Take by mouth once daily. - aspirin(ECOTRIN LOW STRENGTH 81 MG TAB) Take one(1) tablet daily. 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 Encounter Status:Closed by LYN QUICK on 02/08/25 [facility] 01-19-2025 [facility] Telephone (JELANIWS) -------- TERRIE SAMANO ([id number]) 1935 F Date Time Provider Department 01/19/25 JORDAN LANDON [facility] During your visit today, we recorded the following information about you: Lyn Quick MA 01/19/2025 8:28 AM Signed Office received fax from [place] with update. Fax back to [phone]. Routed to PCP. Lyn Quick MA Per fax, please note the following progress note from fall this day (01/18/25) and return with any N.O. Lyn Quick MA 01/19/2025 10:02 AM Signed Form reviewed by PCP, signed, and faxed back to number below. Lyn Quick MA Allergies As of Date: 01/19/2025 Noted Allergy Reaction COUGH SYRUP (GUAIFENESIN) 07/30/2009 2 - Rash IODINE 07/30/2009 2 - Rash Date Reviewed: 10/16/2024 Reviewed by: Sonya Kenyon APRN.COMMUNITY LIVING SPECIALIST - Fully Assessed Reason for Visit: Electronic Communication [720] Cmt: [facility] - Incident note (fall01/18/25) Prescriptions as of 01/19/2025 - nystatin (MYCOSTATIN) cream Apply to affected area once daily as needed. - ferrous sulfate 325 mg (65 mg iron) tablet Take 1 tablet by mouth once daily. - gabapentin (NEURONTIN) 300 mg capsule Take 1 capsule by mouth once daily for 180 days. - dilTIAZem CD (CARDIZEM CD) 120 mg 24 hr capsule Take 1 capsule by mouth once daily. - losartan (COZAAR) 100 mg tablet Take 1 tablet by mouth once daily. - pravastatin (PRAVACHOL) 20 mg tablet Take 1 tablet by mouth once daily. - sertraline (ZOLOFT) 50 mg tablet TAKE 2 TABLETS ONE TIME DAILY - vibegron (GEMTESA) 75 mg tablet Take 1 tablet by mouth once daily. - acetaminophen (TYLENOL) 325 mg tablet Take 2 tablets by mouth every 6 hours as needed for pain. - carboxymethylcellulose sodium (REFRESH OPHTHALMIC) Use 1 Drop in eyes as needed. - triamcinolone (KENALOG) 0.025 % cream Apply to affected area twice daily. - vit C/E/Zn/coppr/lutein/zeax an (PRESERVISION AREDS 2 ORAL) Take 1 capsule by mouth twice daily. - calcium carbonate(CALTRATE 600 600 MG (1,500 MG) TAB) Take by mouth once daily. - aspirin(ECOTRIN LOW STRENGTH 81 MG TAB) Take one(1) tablet daily. Meds Comments as of 03/23/2024: Uses Biofreeze topical in the am on back Problem List As Of Date 01/19/2025 Noted Resolved Calcaneal Spur [M77.30] 07/30/2009 Sprain [...] stenosis [I34.2] 12/31/2023 Encounter Status:Closed by LYN QUICK on 01/19/25 [facility]20[facility] -------- TERRIE SAMANO ([id number]) 1935 F Date Time Provider Department 01/16/25 JORDAN LANDON During your visit today, we recorded the following information about you: Lyn Quick MA 01/16/2025 12:47 PM Signed Call to pt and LM on VM to return call to office and speak with Triage Nurse. Pt scheduled for 01/18 for PT/OT referral. Office received fax from [facility] requesting order. Office wanted to clarify with pt that she did not need an appt as the order was already requested, signed, and sent back, per [facility] request. She is not due for f/u until March. Also call to [facility], wanted to verify they did not advise pt to call and setup appt. Spoke with Roseline, who states that no pt set this up and they thought this was related to a routine visit/follow up. Roseline spoke with patient (at lunch) and pt told her this to obtain orders for PT. Roseline advised pt this has already been completed and an appt is not needed and the appt would be cancelled. Roseline updated this MA, that the appt is not needed and okay to cancel appt. Updated Roseline, that appt would be cancelled, she has routine visit in March and to have pt disregard VM that was left for her since this was pertaining to the the orders for PT. Roseline understood. Lyn Quick MA Allergies As of Date: 01/16/2025 Noted Allergy Reaction COUGH SYRUP (GUAIFENESIN) 07/30/2009 2 - Rash IODINE 07/30/2009 2 - Rash Date Reviewed: 10/16/2024 Reviewed by: Sonya Kenyon APRN.COMMUNITY LIVING SPECIALIST - Fully Assessed Reason for Visit: Appointment [186] Prescriptions as of 01/16/2025 - nystatin (MYCOSTATIN) cream Apply to affected area once daily as needed. - ferrous sulfate 325 mg (65 mg iron) tablet Take 1 tablet by mouth once daily. - gabapentin (NEURONTIN) 300 mg capsule Take 1 capsule by mouth once daily for 180 days. - dilTIAZem CD (CARDIZEM CD) 120 mg 24 hr capsule Take 1 capsule by mouth once daily. - losartan (COZAAR) 100 mg tablet Take 1 tablet by mouth once daily. - pravastatin (PRAVACHOL) 20 mg tablet Take 1 tablet by mouth once daily. - sertraline (ZOLOFT) 50 mg tablet TAKE 2 TABLETS ONE TIME DAILY - vibegron (GEMTESA) 75 mg tablet Take 1 tablet by mouth once daily. - acetaminophen (TYLENOL) 325 mg tablet Take 2 tablets by mouth every 6 hours as needed for pain. - carboxymethylcellulose sodium (REFRESH OPHTHALMIC) Use 1 Drop in eyes as needed. - triamcinolone (KENALOG) 0.025 % cream Apply to affected area twice daily. - vit C/E/Zn/coppr/lutein/zeax an (PRESERVISION AREDS 2 ORAL) Take 1 capsule by mouth twice daily. - calcium carbonate(CALTRATE 600 600 MG (1,500 MG) TAB) Take by mouth once daily. - aspirin(ECOTRIN LOW STRENGTH 81 MG TAB) Take one(1) tablet daily. Meds Comments as of 03/23/2024: Uses Biofreeze topical in the am on back Problem List As Of Date 01/16/2025 Noted Resolved Calcaneal Spur [M77.30] 07/30/2009 Sprain [...] stenosis [I34.2] 12/31/2023 Encounter Status:Closed by LYN QUICK on 01/16/25 [facility]-2025 [facility] -------- TERRIE SAMANO ([id number]) 1935 F Date Time Provider Department 01/15/25 JORDAN LANDON [facility] During your visit today, we recorded the following information about you: Lyn Quick MA 01/15/2025 8:46 AM Signed Office received fax from [facility] requesting order for PT/OT for resident due to continued multiple falls at facility. Fax back to [phone] or [phone]. ALVARADO Kaur Rilee, MA 01/16/2025 3:43 PM Signed Completed and faxed back. Lyn Quick MA Allergies As of Date: 01/15/2025 Noted Allergy Reaction COUGH SYRUP (GUAIFENESIN) 07/30/2009 2 - Rash IODINE 07/30/2009 2 - Rash Date Reviewed: 10/16/2024 Reviewed by: Sonya Kenyon APRN.COMMUNITY LIVING SPECIALIST - Fully Assessed Reason for Visit: Electronic Communication [800] Cmt: [facility] Prescriptions as of 01/16/2025 - nystatin (MYCOSTATIN) cream Apply to affected area once daily as needed. - ferrous sulfate 325 mg (65 mg iron) tablet Take 1 tablet by mouth once daily. - gabapentin (NEURONTIN) 300 mg capsule Take 1 capsule by mouth once daily for 180 days. - dilTIAZem CD (CARDIZEM CD) 120 mg 24 hr capsule Take 1 capsule by mouth once daily. - losartan (COZAAR) 100 mg tablet Take 1 tablet by mouth once daily. - pravastatin (PRAVACHOL) 20 mg tablet Take 1 tablet by mouth once daily. - sertraline (ZOLOFT) 50 mg tablet TAKE 2 TABLETS ONE TIME DAILY - vibegron (GEMTESA) 75 mg tablet Take 1 tablet by mouth once daily. - acetaminophen (TYLENOL) 325 mg tablet Take 2 tablets by mouth every 6 hours as needed for pain. - carboxymethylcellulose sodium (REFRESH OPHTHALMIC) Use 1 Drop in eyes as needed. - triamcinolone (KENALOG) 0.025 % cream Apply to affected area twice daily. - vit C/E/Zn/coppr/lutein/zeax an (PRESERVISION AREDS 2 ORAL) Take 1 capsule by mouth twice daily. - calcium carbonate(CALTRATE 600 600 MG (1,500 MG) TAB) Take by mouth once daily. - aspirin(ECOTRIN LOW STRENGTH 81 MG TAB) Take one(1) tablet daily. Meds Comments as of 03/23/2024: Uses Biofreeze topical in the am on back Problem List As Of Date 01/15/2025 Noted Resolved Calcaneal Spur [M77.30] 07/30/2009 Sprain [...] stenosis [I34.2] 12/31/2023 Encounter Status:Closed by LYN QUICK on [facility]16/[facility] -------- TERRIE SAMANO ([id number]) 1935 F Date Time Provider Department 12/25/24 JORDAN LANDON [facility] During your visit today, we recorded the following information about you: Lyn Quick MA 12/25/2024 12:42 PM Signed Fax received in office from [facility] regarding pt fall on 12/24/24. Please review note from [place]. Once reviewed will fax back to [phone]. ALVARADO Kaur Mark D, MD 12/25/2024 1:06 PM Signed Noted MD Reynold Douglass Rilee, MA 12/25/2024 3:57 PM Signed Form reviewed by PCP and faxed back to [place] at [phone]. Lyn Quick MA Allergies As of Date: 12/25/2024 Noted Allergy Reaction COUGH SYRUP (GUAIFENESIN) 07/30/2009 2 - Rash IODINE 07/30/2009 2 - Rash Date Reviewed: 10/16/2024 Reviewed by: Sonya Kenyon APRN.COMMUNITY LIVING SPECIALIST - Fully Assessed Reason for Visit: Electronic Communication [550] Cmt: [facility] Prescriptions as of 12/25/2024 - nystatin (MYCOSTATIN) cream Apply to affected area once daily as needed. - ferrous sulfate 325 mg (65 mg iron) tablet Take 1 tablet by mouth once daily. - gabapentin (NEURONTIN) 300 mg capsule Take 1 capsule by mouth once daily for 180 days. - dilTIAZem CD (CARDIZEM CD) 120 mg 24 hr capsule Take 1 capsule by mouth once daily. - losartan (COZAAR) 100 mg tablet Take 1 tablet by mouth once daily. - pravastatin (PRAVACHOL) 20 mg tablet Take 1 tablet by mouth once daily. - sertraline (ZOLOFT) 50 mg tablet TAKE 2 TABLETS ONE TIME DAILY - vibegron (GEMTESA) 75 mg tablet Take 1 tablet by mouth once daily. - acetaminophen (TYLENOL) 325 mg tablet Take 2 tablets by mouth every 6 hours as needed for pain. - carboxymethylcellulose sodium (REFRESH OPHTHALMIC) Use 1 Drop in eyes as needed. - triamcinolone (KENALOG) 0.025 % cream Apply to affected area twice daily. - vit C/E/Zn/coppr/lutein/zeax an (PRESERVISION AREDS 2 ORAL) Take 1 capsule by mouth twice daily. - calcium carbonate(CALTRATE 600 600 MG (1,500 MG) TAB) Take by mouth once daily. - aspirin(ECOTRIN LOW STRENGTH 81 MG TAB) Take one(1) tablet daily. Meds Comments as of 03/23/2024: Uses Biofreeze topical in the am on back Problem List As Of Date 12/25/2024 Noted Resolved Calcaneal Spur [M77.30] 07/30/2009 Sprain [...] stenosis [I34.2] 12/31/2023 Encounter Status:Closed by LYN QUICK on 12/25/24 [facility] -------- TERRIE SAMANO ([id number]) 1935 F Date Time Provider Department 12/18/24 JORDAN LANDON [facility] During your visit today, we recorded the following information about you: Lyn Quick MA 12/18/2024 7:21 PM Signed Office received electronic communication from [facility] regarding pt fall that occurred. Please review incident note from [place] Nurse. Once reviewed, advise. Fax back to [phone] or [phone]. Routed to PCP. ALVARADO Kaur Mark D, MD 12/19/2024 4:59 PM Signed Noted MD Reynold Douglass Rilee, MA 12/19/2024 5:04 PM Signed This has been completed and faxed back to number below. Lyn Quick MA Allergies As of Date: 12/18/2024 Noted Allergy Reaction COUGH SYRUP (GUAIFENESIN) 07/30/2009 2 - Rash IODINE 07/30/2009 2 - Rash Date Reviewed: 10/16/2024 Reviewed by: Sonya Kenyon APRN.[facility] - Fully Assessed Reason for Visit: Electronic Communication [650] [facility]mt: [facility] Prescriptions as of 12/19/2024 - nystatin (MYCOSTATIN) cream Apply to affected area once daily as needed. - ferrous sulfate 325 mg (65 mg iron) tablet Take 1 tablet by mouth once daily. - gabapentin (NEURONTIN) 300 mg capsule Take 1 capsule by mouth once daily for 180 days. - dilTIAZem CD (CARDIZEM CD) 120 mg 24 hr capsule Take 1 capsule by mouth once daily. - losartan (COZAAR) 100 mg tablet Take 1 tablet by mouth once daily. - pravastatin (PRAVACHOL) 20 mg tablet Take 1 tablet by mouth once daily. - sertraline (ZOLOFT) 50 mg tablet TAKE 2 TABLETS ONE TIME DAILY - vibegron (GEMTESA) 75 mg tablet Take 1 tablet by mouth once daily. - acetaminophen (TYLENOL) 325 mg tablet Take 2 tablets by mouth every 6 hours as needed for pain. - carboxymethylcellulose sodium (REFRESH OPHTHALMIC) Use 1 Drop in eyes as needed. - triamcinolone (KENALOG) 0.025 % cream Apply to affected area twice daily. - vit C/E/Zn/coppr/lutein/zeax an (PRESERVISION AREDS 2 ORAL) Take 1 capsule by mouth twice daily. - calcium carbonate(CALTRATE 600 600 MG (1,500 MG) TAB) Take by mouth once daily. - aspirin(ECOTRIN LOW STRENGTH 81 MG TAB) Take one(1) tablet daily. Meds Comments as of 03/23/2024: Uses Biofreeze topical in the am on back Problem List As Of Date 12/18/2024 Noted Resolved Calcaneal Spur [M77.30] 07/30/2009 Sprain [...] stenosis [I34.2] 12/31/2023 Encounter Status:Closed by LYN QUICK on 12/19/24 [facility]14-20[facility] -------- TERRIE SAMANO ([id number]) 1935 F Date Time Provider Department 12/14/24 JORDAN LANDON [facility] During your visit today, we recorded the following information about you: Lyn Quick MA 12/14/2024 11:10 AM Signed Office received fax from [facility], requesting PCP to sign pt's DNR and fax back. Routed to PCP to review. Once complete fax back to [phone]. ALVARADO Kaur Rilee, MA 12/15/2024 8:19 AM Signed Form completed and faxed back to number below. Lyn Quick MA Allergies As of Date: 12/14/2024 Noted Allergy Reaction COUGH SYRUP (GUAIFENESIN) 07/30/2009 2 - Rash IODINE 07/30/2009 2 - Rash Date Reviewed: 10/16/2024 Reviewed by: Sonya Kenyon APRN.COMMUNITY LIVING SPECIALIST - Fully Assessed Reason for Visit: Electronic Communication [840] Cmt: DNR - [facility] Prescriptions as of 12/15/2024 - nystatin (MYCOSTATIN) cream Apply to affected area once daily as needed. - ferrous sulfate 325 mg (65 mg iron) tablet Take 1 tablet by mouth once daily. - gabapentin (NEURONTIN) 300 mg capsule Take 1 capsule by mouth once daily for 180 days. - dilTIAZem CD (CARDIZEM CD) 120 mg 24 hr capsule Take 1 capsule by mouth once daily. - losartan (COZAAR) 100 mg tablet Take 1 tablet by mouth once daily. - pravastatin (PRAVACHOL) 20 mg tablet Take 1 tablet by mouth once daily. - sertraline (ZOLOFT) 50 mg tablet TAKE 2 TABLETS ONE TIME DAILY - vibegron (GEMTESA) 75 mg tablet Take 1 tablet by mouth once daily. - acetaminophen (TYLENOL) 325 mg tablet Take 2 tablets by mouth every 6 hours as needed for pain. - carboxymethylcellulose sodium (REFRESH OPHTHALMIC) Use 1 Drop in eyes as needed. - triamcinolone (KENALOG) 0.025 % cream Apply to affected area twice daily. - vit C/E/Zn/coppr/lutein/zeax an (PRESERVISION AREDS 2 ORAL) Take 1 capsule by mouth twice daily. - calcium carbonate(CALTRATE 600 600 MG (1,500 MG) TAB) Take by mouth once daily. - aspirin(ECOTRIN LOW STRENGTH 81 MG TAB) Take one(1) tablet daily. Meds Comments as of 03/23/2024: Uses Biofreeze topical in the am on back Problem List As Of Date 12/14/2024 Noted Resolved Calcaneal Spur [M77.30] 07/30/2009 Sprain [...] stenosis [I34.2] 12/31/2023 Encounter Status:Closed by LYN QUICK on 12/15/24 Normal [facility] CNP[facility] TERRIE SAMANO ([id number]) 1935 F Date Time Provider Department 11/16/24 [facility] During your visit today, we recorded the following information about you: Citlalli Brown MA 11/16/2024 9:24 AM Signed Type of letter/form/fax request - Admission forms Form received from fax on 1 floor and placed on MD desk (Dr. Landon) for completion. Completed form needs to be faxed to [facility] at [phone] ATTN: Rios Dewitt. Pt will be moving into [facility] in [place] on 11/25/24. Route to ID when form completed for processing Jordan Landon MD 11/21/2024 3:01 PM Signed Form done, may send with printed copy of 09/29/24 office note MD Reynold Douglass Rilee, MA 11/21/2024 3:05 PM Signed Form completed and faxed back to information below with OV from 09/29/24, per PCP request. Lyn Quick MA Allergies As of Date: 11/16/2024 Noted Allergy Reaction COUGH SYRUP (GUAIFENESIN) 07/30/2009 2 - Rash IODINE 07/30/2009 2 - Rash Date Reviewed: 10/16/2024 Reviewed by: Ede, Sonya, HVAC SALES ENGINEER.COMMUNITY LIVING SPECIALIST - Fully Assessed Reason for Visit: Forms [913] Cmt: Admission forms for [facility] Prescriptions as of 11/21/2024 - nystatin (MYCOSTATIN) cream Apply to affected area once daily as needed. - ferrous sulfate 325 mg (65 mg iron) tablet Take 1 tablet by mouth once daily. - gabapentin (NEURONTIN) 300 mg capsule Take 1 capsule by mouth once daily for 180 days. - dilTIAZem CD (CARDIZEM CD) 120 mg 24 hr capsule Take 1 capsule by mouth once daily. - losartan (COZAAR) 100 mg tablet Take 1 tablet by mouth once daily. - pravastatin (PRAVACHOL) 20 mg tablet Take 1 tablet by mouth once daily. - sertraline (ZOLOFT) 50 mg tablet TAKE 2 TABLETS ONE TIME DAILY - vibegron (GEMTESA) 75 mg tablet Take 1 tablet by mouth once daily. - acetaminophen (TYLENOL) 325 mg tablet Take 2 tablets by mouth every 6 hours as needed for pain. - carboxymethylcellulose sodium (REFRESH OPHTHALMIC) Use 1 Drop in eyes as needed. - triamcinolone (KENALOG) 0.025 % cream Apply to affected area twice daily. - vit C/E/Zn/coppr/lutein/zeax an (PRESERVISION AREDS 2 ORAL) Take 1 capsule by mouth twice daily. - calcium carbonate(CALTRATE 600 600 MG (1,500 MG) TAB) Take by mouth once daily. - aspirin(ECOTRIN LOW STRENGTH 81 MG TAB) Take one(1) tablet daily. Meds Comments as of 03/23/2024: Uses Biofreeze topical in the am on back Problem List As Of Date 11/16/2024 Noted Resolved Calcaneal Spur [M77.30] 07/30/2009 Sprain [...] stenosis [I34.2] 12/31/2023 Encounter Status:Closed by LYN QUICK on 11/21/24 [facility] CNPKatty 11-14-2024 CNPN Telephone (FAMPWS) -------- TERRIE SAMANO ([id number]) 1935 F Date Time Provider Department 11/14/24 JORDAN LANDON [facility] During your visit today, we recorded the following information about you: Lyn Quick MA 11/14/2024 1:04 PM Signed Office received fax from James Sidney regarding patient. Fax back to [facility] after review to [phone]. Lyn Quick MA Fax: Note text: Staff notified Nurse at 0630 that resident was sitting on her bedroom floor. Upon entering room, resident was sitting on bedroom floor with legs outstretched in front of her, walker within reach. Resident stated she was standing up getting clothing for breakfast, and while leaning over she started to lose her balance, grabbed a hold of her walked and it tipped over ending with her on the floor. Hit her right upper arm on her chair during fall. Abrasion noted to right knee, but uncertain if that is new or not. Denied hitting head. Stated that she fell around 6am, but could not get her call pendent to work, this nurse tested it x3 and worked fine each time. Vitals BP 160/82, P: 86, R:20, T: 97.8 (forehead), Sp02: 93% RA. PERRLA. ROM equal per usual x 4 extremities, was assisted to stand x 2 assist with FWB. Bruised noted to right upper arm with some swelling, reddened area to right knee. No other bumps/banks/discoloratio ns noted to skin. Ambulated several feet without difficulty or pain. Ice pack offered for arm but stated she would put a pack of peas on her arm if needed after she gets ready for breakfast. Maintenance notified of difficulty with call pendent, new call pendent provided and resident using without difficulty. No needs/wants voiced, will continue to monitor. PCP, AL directed notified of fall. Nursing - Rachelle Mahmood. Jordan Landon MD 11/14/2024 2:40 PM Signed Noted MD Kevin Douglass Kathryn, MA 11/14/2024 2:43 PM Signed Faxed back. Citlalli Brown MA Allergies As of Date: 11/14/2024 Noted Allergy Reaction COUGH SYRUP (GUAIFENESIN) 07/30/2009 2 - Rash IODINE 07/30/2009 2 - Rash Date Reviewed: 10/16/2024 Reviewed by: Sonya Kenyon APRN.COMMUNITY LIVING SPECIALIST - Fully Assessed Reason for Visit: Electronic Communication [890] Cmt: [facility] Prescriptions as of 11/14/2024 - nystatin (MYCOSTATIN) cream Apply to affected area once daily as needed. - ferrous sulfate 325 mg (65 mg iron) tablet Take 1 tablet by mouth once daily. - gabapentin (NEURONTIN) 300 mg capsule Take 1 capsule by mouth once daily for 180 days. - dilTIAZem CD (CARDIZEM CD) 120 mg 24 hr capsule Take 1 capsule by mouth once daily. - losartan (COZAAR) 100 mg tablet Take 1 tablet by mouth once daily. - pravastatin (PRAVACHOL) 20 mg tablet Take 1 tablet by mouth once daily. - sertraline (ZOLOFT) 50 mg tablet TAKE 2 TABLETS ONE TIME DAILY - vibegron (GEMTESA) 75 mg tablet Take 1 tablet by mouth once daily. - acetaminophen (TYLENOL) 325 mg tablet Take 2 tablets by mouth every 6 hours as needed for pain. - carboxymethylcellulose sodium (REFRESH OPHTHALMIC) Use 1 Drop in eyes as needed. - triamcinolone (KENALOG) 0.025 % cream Apply to affected area twice daily. - vit C/E/Zn/coppr/lutein/zeax an (PRESERVISION AREDS 2 ORAL) Take 1 capsule by mouth twice daily. - calcium carbonate(CALTRATE 600 600 MG (1,500 MG) TAB) Take by mouth once daily. - aspirin(ECOTRIN LOW STRENGTH 81 MG TAB) Take one(1) tablet daily. Meds Comments as of 03/23/2024: Uses Biofreeze topical in the am on back Problem List As Of Date 11/14/2024 Noted Resolved Calcaneal Spur [M77.30] 07/30/2009 Sprain [...] stenosis [I34.2] 12/31/2023 Encounter Status:Closed by CITLALLI BROWN on 11/14/24 [facility] -------- JAZMYNETERRIE LINN ([id number]) 1935 F Date Time Provider Department 11/13/24 JORDAN LANDON [facility] During your visit today, we recorded the following information about you: Stacey Mueller RN 11/13/2024 10:57 AM Signed Patient calling to state that she plans to move to [facility] in the near future. Stacey Mueller RN Allergies As of Date: 11/13/2024 Noted Allergy Reaction COUGH SYRUP (GUAIFENESIN) 07/30/2009 2 - Rash IODINE 07/30/2009 2 - Rash Date Reviewed: 10/16/2024 Reviewed by: Sonya Kenyon APRN.[facility] - Fully Assessed Reason for Visit: Patient Update [1234] Prescriptions as of 11/13/2024 - nystatin (MYCOSTATIN) cream Apply to affected area once daily as needed. - ferrous sulfate 325 mg (65 mg iron) tablet Take 1 tablet by mouth once daily. - gabapentin (NEURONTIN) 300 mg capsule Take 1 capsule by mouth once daily for 180 days. - dilTIAZem CD (CARDIZEM CD) 120 mg 24 hr capsule Take 1 capsule by mouth once daily. - losartan (COZAAR) 100 mg tablet Take 1 tablet by mouth once daily. - pravastatin (PRAVACHOL) 20 mg tablet Take 1 tablet by mouth once daily. - sertraline (ZOLOFT) 50 mg tablet TAKE 2 TABLETS ONE TIME DAILY - vibegron (GEMTESA) 75 mg tablet Take 1 tablet by mouth once daily. - acetaminophen (TYLENOL) 325 mg tablet Take 2 tablets by mouth every 6 hours as needed for pain. - carboxymethylcellulose sodium (REFRESH OPHTHALMIC) Use 1 Drop in eyes as needed. - triamcinolone (KENALOG) 0.025 % cream Apply to affected area twice daily. - vit C/E/Zn/coppr/lutein/zeax an (PRESERVISION AREDS 2 ORAL) Take 1 capsule by mouth twice daily. - calcium carbonate(CALTRATE 600 600 MG (1,500 MG) TAB) Take by mouth once daily. - aspirin(ECOTRIN LOW STRENGTH 81 MG TAB) Take one(1) tablet daily. Meds Comments as of 03/23/2024: Uses Biofreeze topical in the am on back Problem List As Of Date 11/13/2024 Noted Resolved Calcaneal Spur [M77.30] 07/30/2009 Sprain [...] valve stenosis [I34.2] 12/31/2023 Encounter Status:Closed by STACEY MUELLER on 11/13/24 Normal [facility] CBC-Complete Blood Cnt No Di ffon 11-06-2024 Erythrocyte distribution width (RBC) [Ratio] 17.8 % High 11.6-14.6 [facility] Comment on above: Order Comment: 174 Performed By: #### L 503.6075, L100.0500, L503.6150 ####[facility] [address] [place], [address] Hematocrit (Bld) [Volume fraction] 35.9 % Low 37-47 [facility] Comment on above: Order Comment: 174 Performed By: #### L 503.6075, L100.0500, L503.6150 ####[facility] [address] [place], [address] Hemoglobin (Bld) [Mass/Vol] 11.0 g/dL Low 12.0-15.0 [facility] Comment on above: Order Comment: 174 Performed By: #### L 503.6075, L100.0500, L503.6150 ####[facility] [address] [place], [address] MCH (RBC) [Entitic mass] 28.4 pg Normal 27.0-32.0 [facility] Comment on above: Order Comment: 174 Performed By: #### L 503.6075, L100.0500, L503.6150 ####[facility] [address] [place], [address] MCHC (RBC) [Mass/Vol] 30.6 g/dL Low 32-36 [facility] Comment on above: Order Comment: 174 Performed By: #### L 503.6075, L100.0500, L503.6150 ####[facility] [address] [place], [address] MCV (RBC) [Entitic vol] 92.8 fL Normal 81-99 [facility] Comment on above: Order Comment: 174 Performed By: #### L 503.6075, L100.0500, L503.6150 ####[facility] [address] [place], [address] Platelet mean volume (Bld) [Entitic vol] 10.9 fL Normal 6.2-12.0 [facility] Comment on above: Order Comment: 174 Performed By: #### L 503.6075, L100.0500, L503.6150 ####[facility] [address] [place], [address] Platelets (Bld) [#/Vol] 206 10*3/uL Normal 150-450 [facility] Comment on above: Order Comment: 174 Performed By: #### L 503.6075, L100.0500, L503.6150 ####[facility] [address] [place], [address] RBC (Bld) [#/Vol] 3.87 10*6/uL Low 4.2-5.4 [facility] Comment on above: Order Comment: 174 Performed By: #### L 503.6075, L100.0500, L503.6150 ####[facility] [address] [place], [address] RDW SD 61.4 fl High 35.1-43.9 [facility] Comment on above: Order Comment: 174 Performed By: #### L 503.6075, L100.0500, L503.6150 ####[facility] [address] [place], [address] WBC (Bld) [#/Vol] 6.4 10*3/uL Normal 4.4-11.0 [facility] Comment on above: Order Comment: 174 Performed By: #### L 503.6075, L100.0500, L503.6150 ####[facility] [address] [place], [address] Ironon 11-06-2024 Iron [Mass/Vol] 47 ug/dL Low 50-170 [facility] Comment on above: Order Comment: 174 Performed By: #### L 503.6075, L100.0500, L503.6150 ####[facility] [address] [place], [address] Iron Binding Capacity,Totalo n 11-06-2024 TIBC 340 ug/dL Normal 250-450 [facility] Comment on above: Order Comment: 174 Performed By: #### L 503.6075, L100.0500, L503.6150 ####[facility] [address] [place], [address] CNPNon 11-03-2024 [facility] TERRIE SAMANO ([id number]) 1935 F Date Time Provider Department 11/03/24 [facility] During your visit today, we recorded the following information about you: Lyn Quick MA 11/03/2024 10:39 AM Signed Received fax from [facility] with an update regarding pt. Lyn Quick MA Per Fax: Pt fell this evening (11/02/24). Fell backward, hitting head on floor. Small lump with abrasion noted. Vitals WNL. Neuro checks initiated. PCP reviewed notes and noted. This was faxed back to [facility] at [phone]. Allergies As of Date: 11/03/2024 Noted Allergy Reaction COUGH SYRUP (GUAIFENESIN) 07/30/2009 2 - Rash IODINE 07/30/2009 2 - Rash Date Reviewed: 10/16/2024 Reviewed by: Sonya Kenyon APRN.COMMUNITY LIVING SPECIALIST - Fully Assessed Reason for Visit: Electronic Communication [890] Cmt: [facility] Prescriptions as of 11/03/2024 - nystatin (MYCOSTATIN) cream Apply to affected area once daily as needed. - ferrous sulfate 325 mg (65 mg iron) tablet Take 1 tablet by mouth once daily. - gabapentin (NEURONTIN) 300 mg capsule Take 1 capsule by mouth once daily for 180 days. - dilTIAZem CD (CARDIZEM CD) 120 mg 24 hr capsule Take 1 capsule by mouth once daily. - losartan (COZAAR) 100 mg tablet Take 1 tablet by mouth once daily. - pravastatin (PRAVACHOL) 20 mg tablet Take 1 tablet by mouth once daily. - sertraline (ZOLOFT) 50 mg tablet TAKE 2 TABLETS ONE TIME DAILY - vibegron (GEMTESA) 75 mg tablet Take 1 tablet by mouth once daily. - acetaminophen (TYLENOL) 325 mg tablet Take 2 tablets by mouth every 6 hours as needed for pain. - carboxymethylcellulose sodium (REFRESH OPHTHALMIC) Use 1 Drop in eyes as needed. - triamcinolone (KENALOG) 0.025 % cream Apply to affected area twice daily. - vit C/E/Zn/coppr/lutein/zeax an (PRESERVISION AREDS 2 ORAL) Take 1 capsule by mouth twice daily. - calcium carbonate(CALTRATE 600 600 MG (1,500 MG) TAB) Take by mouth once daily. - aspirin(ECOTRIN LOW STRENGTH 81 MG TAB) Take one(1) tablet daily. Meds Comments as of 03/23/2024: Uses Biofreeze topical in the am on back Problem List As Of Date 11/03/2024 Noted Resolved Calcaneal Spur [M77.30] 07/30/2009 Sprain [...] stenosis [I34.2] 12/31/2023 Encounter Status:Closed by LYN QUICK on 11/03/24 [facility] CNPNon 11-02-2024 CNPN Telephone (FAMPWS) -------- TERRIE SAMANO ([id number]) 1935 F Date Time Provider Department 11/02/24 [facility] During your visit today, we recorded the following information about you: Alison Vallecillo LPN 11/02/2024 10:18 AM Signed Patient calling PCP wanted lab work done one month after starting the iron rx which was ordered on 10/03/2024. Patient said she never got the medication started until after xmas due to it coming from mail away pharmacy, thinks she started rx on 10/19/2024. Patient asking when did PCP want to the labs done now? Patient asking for lab orders to be faxed to [facility] so could be drawn out there. Please advise Jordan Landon MD 11/02/2024 3:24 PM Signed OK to fax orders that were previously placed for CBC and iron levels; she may get them done next week MD Kevin Douglass Kathryn, MA 11/02/2024 3:29 PM Signed Order faxed to [facility]. Citlalli Brown MA Allergies As of Date: 11/02/2024 Noted Allergy Reaction COUGH SYRUP (GUAIFENESIN) 07/30/2009 2 - Rash IODINE 07/30/2009 2 - Rash Date Reviewed: 10/16/2024 Reviewed by: Sonya Kenyon APRN.COMMUNITY LIVING SPECIALIST - Fully Assessed Reason for Visit: Electronic Communication [890] Prescriptions as of 11/03/2024 - nystatin (MYCOSTATIN) cream Apply to affected area once daily as needed. - ferrous sulfate 325 mg (65 mg iron) tablet Take 1 tablet by mouth once daily. - gabapentin (NEURONTIN) 300 mg capsule Take 1 capsule by mouth once daily for 180 days. - dilTIAZem CD (CARDIZEM CD) 120 mg 24 hr capsule Take 1 capsule by mouth once daily. - losartan (COZAAR) 100 mg tablet Take 1 tablet by mouth once daily. - pravastatin (PRAVACHOL) 20 mg tablet Take 1 tablet by mouth once daily. - sertraline (ZOLOFT) 50 mg tablet TAKE 2 TABLETS ONE TIME DAILY - vibegron (GEMTESA) 75 mg tablet Take 1 tablet by mouth once daily. - acetaminophen (TYLENOL) 325 mg tablet Take 2 tablets by mouth every 6 hours as needed for pain. - carboxymethylcellulose sodium (REFRESH OPHTHALMIC) Use 1 Drop in eyes as needed. - triamcinolone (KENALOG) 0.025 % cream Apply to affected area twice daily. - vit C/E/Zn/coppr/lutein/zeax an (PRESERVISION AREDS 2 ORAL) Take 1 capsule by mouth twice daily. - calcium carbonate(CALTRATE 600 600 MG (1,500 MG) TAB) Take by mouth once daily. - aspirin(ECOTRIN LOW STRENGTH 81 MG TAB) Take one(1) tablet daily. Meds Comments as of 03/23/2024: Uses Biofreeze topical in the am on back Problem List As Of Date 11/02/2024 Noted Resolved Calcaneal Spur [M77.30] 07/30/2009 Sprain [...] stenosis [I34.2] 12/31/2023 Encounter Status:Closed by CITLALLI BROWN on 11/02/24 [facility] 10-19-2024 [facility] -------- TERRIE SAMANO ([id number]) 1935 F Date Time Provider Department 10/19/24 JORDAN LANDON [facility] During your visit today, we recorded the following information about you: Lyn Quick MA 10/19/2024 4:09 PM Signed Office received fax from [facility] regarding pt fall. Routed to PCP to review. After review fax back to [phone]. ALVARADO Kaur Mark D, MD 10/19/2024 4:14 PM Signed Ishaan Landon MD Allergies As of Date: 10/19/2024 Noted Allergy Reaction COUGH SYRUP (GUAIFENESIN) 07/30/2009 2 - Rash IODINE 07/30/2009 2 - Rash Date Reviewed: 10/16/2024 Reviewed by: Sonya Kenyon APRN.COMMUNITY LIVING SPECIALIST - Fully Assessed Reason for Visit: Electronic Communication [890] Cmt: [facility] Prescriptions as of 10/19/2024 - ferrous sulfate 325 mg (65 mg iron) tablet Take 1 tablet by mouth once daily. - gabapentin (NEURONTIN) 300 mg capsule Take 1 capsule by mouth once daily for 180 days. - dilTIAZem CD (CARDIZEM CD) 120 mg 24 hr capsule Take 1 capsule by mouth once daily. - losartan (COZAAR) 100 mg tablet Take 1 tablet by mouth once daily. - nystatin (MYCOSTATIN) cream Apply to affected area once daily as needed. - pravastatin (PRAVACHOL) 20 mg tablet Take 1 tablet by mouth once daily. - sertraline (ZOLOFT) 50 mg tablet TAKE 2 TABLETS ONE TIME DAILY - vibegron (GEMTESA) 75 mg tablet Take 1 tablet by mouth once daily. - acetaminophen (TYLENOL) 325 mg tablet Take 2 tablets by mouth every 6 hours as needed for pain. - carboxymethylcellulose sodium (REFRESH OPHTHALMIC) Use 1 Drop in eyes as needed. - triamcinolone (KENALOG) 0.025 % cream Apply to affected area twice daily. - vit C/E/Zn/coppr/lutein/zeax an (PRESERVISION AREDS 2 ORAL) Take 1 capsule by mouth twice daily. - calcium carbonate(CALTRATE 600 600 MG (1,500 MG) TAB) Take by mouth once daily. - aspirin(ECOTRIN LOW STRENGTH 81 MG TAB) Take one(1) tablet daily. Meds Comments as of 03/23/2024: Uses Biofreeze topical in the am on back Problem List As Of Date 10/19/2024 Noted Resolved Calcaneal Spur [M77.30] 07/30/2009 Sprain [...] valve stenosis [I34.2] 12/31/2023 Encounter Status:Closed by JORDAN LANDON on 10/19/24 Normal [facility] CNOVon 10-16-2024 CN Office Visit (GENSWS ) -------- TERRIE SAMANO ([id number]) 1935 F Date Time Provider Department 10/16/24 3:30 PM SONYA KENYON GENNANY During your visit today, we recorded the following information about you: Temperature Pulse Blood pressure Weight 99.1 degrees 98/minute 133/74 73 kg Height 1.448 m Sonya Kenyon APRN.CNP 10/16/2024 4:29 PM Signed HISTORY AND PHYSICAL Terrie A Jazmyne : 1935 REFERRING PHYSICIAN: Jordan Landon [address] [facility] [address] CHIEF COMPLAINT: Patient presents with: Anemia HPI: Terrie is a 89 year old female referred for endoscopy. Terrie notes + occult blood in stool. Recently started on iron. Terrie denies abdominal pain.. Terrie denies diarrhea. Terrie notes recent history of constipation. -notes this morning her stool was hard like little rocks and dark Terrie denies a change in bowel habits. Terrie denies melena. Terrie denies bright red blood per rectum. Terrie denies hemorrhoids. Terrie denies heartburn. Terrie denies dysphagia. Terrie denies a history of ulcers/ peptic ulcer disease. Terrie notes family history of colon issues. Mother AND sister with colon cancer Terrie's medical hx is significant for HTN, HLD, left ventricular hypertrophy, hx of DVT Terrie has had multiple falls- upwards to 19 while living in assisted living. She uses a walker to get around and a rollator to get in and out of bed. She is extremely unsteady on her feet with her most recent fall 2 days ago. Discussion of moving to the half-way has been started but the patient is reluctant. She has already completed PT/OT with no improvement in her mobility. Terrie has undergone prior endoscopy. Last one was >10 years ago. Current Outpatient Medications Medication Sig ferrous sulfate 325 mg (65 mg iron) tablet Take 1 tablet by mouth once daily. gabapentin (NEURONTIN) 300 mg capsule Take 1 capsule by mouth once daily for 180 days. dilTIAZem CD (CARDIZEM CD) 120 mg 24 hr capsule Take 1 capsule by mouth once daily. losartan (COZAAR) 100 mg tablet Take 1 tablet by mouth once daily. nystatin (MYCOSTATIN) cream Apply to affected area once daily as needed. pravastatin (PRAVACHOL) 20 mg tablet Take 1 tablet by mouth once daily. sertraline (ZOLOFT) 50 mg tablet TAKE 2 TABLETS ONE TIME DAILY vibegron (GEMTESA) 75 mg tablet Take 1 tablet by mouth once daily. triamcinolone (KENALOG) 0.025 % cream Apply to affected area twice daily. vit C/E/Zn/coppr/lutein/zeax an (PRESERVISION AREDS 2 ORAL) Take 1 capsule by mouth twice daily. calcium carbonate(CALTRATE 600 600 MG (1,500 MG) TAB) Take by mouth once daily. aspirin(ECOTRIN LOW STRENGTH 81 MG TAB) Take one(1) tablet daily. acetaminophen (TYLENOL) 325 mg tablet Take 2 tablets by mouth every 6 hours as needed for pain. (Patient taking differently: Take 325 mg by mouth every 6 hours as needed for pain. Patient use ES tylenol 1000 mg po BID routine) carboxymethylcellulose sodium (REFRESH OPHTHALMIC) Use 1 Drop in eyes as needed. No current facility-administered medications for this visit. ALLERGIES: Cough Syrup [Guaifenesin] and Iodine PAST MEDICAL HISTORY Diagnosis Date Chronic back pain Followed by Dr. Whitehead Macular degeneration Mixed hyperlipidemia Hyperlipidemia PMH - PAST MEDICAL HISTORY OF 2001 left eye detached retina Unspecified essential hypertension Essential hypertension PAST SURGICAL HISTORY Procedure Laterality Date APPENDECTOMY 12/1962 PAST SURGICAL HISTORY OF cataract sx left eye TONSILLECTOMY AND ADENOIDECTOMY T/A (under age 14 years) TOTAL ABDOMINAL HYSTERECT W/WO RMVL TUBE OVARY 04/07/1978 Hysterectomy, CAROLE FAMILY HISTORY Problem Relation Age of Onset Hypertension Mother Colon Cancer Mother Hypertension Father Prostate Cancer Father Colon Cancer Sister Diabetes Brother Social History Tobacco Use Smoking status: Never Smokeless tobacco: Never Vaping Use Vaping status: Never Used Substance Use Topics Alcohol use: No Drug use: No REVIEW OF SYMPTOMS: REVIEW OF SYSTEMS: General: The patient + fatigue, + weight loss, denies weight gain, denies feeling hot, and feelings of cold. Eyes: The patient denies glaucoma, denies eye injury/surgery, denies glasses or contacts. Ear/Nose/Throat: The patient + allergies, denies hayfever, denies ear infections, and denies bloody noses. Cardiovascular: The patient denies chest pain, denies heart disease, + high blood pressure, denies high cholesterol, and denies poor circulation. Respiratory: The patient denies tuberculosis, denies pneumonia, denies frequent cough, denies shortness of breath, and denies coughing up blood. Gastrointestinal: The patient denies difficulty swallowing, denies acid reflux, denies ulcers, denies jaundice/hepatitis, d (more content not included)... [facility] [facility] CNOVon 10-05-2024 CNOV Office Visit (FAMPWS ) -------- TERRIE SAMANO ([id number]) 1935 F Date Time Provider Department 10/05/24 2:20 PM JORDAN LANDON During your visit today, we recorded the following information about you: Pulse Respiration Blood pressure Weight 80/minute 18/minute 124/76 73.5 kg Jordan Landon MD 10/05/2024 5:04 PM Signed Chief Complaint Patient presents with: ED Follow-up: [facility]-fell, laceration to head, required 4 tang HPI Terrie Samano is a 89 year old female who presents here today for er follow up. Pt fell and hit head and was evaluated at ER where she received tang to the right side head on 09/30/24. She states she missed the chair when she went to sit down. No LOC. She had CT brain and CT cervical spine done which were negative. Advised to get tang removed in 1 week which [facility] is going to remove. Pt had another fall on Wednesday trying to open her door and fell onto her back. Is not having any pain. [facility] states that she has had 5 falls within the last 30 days. PT/OT are no longer effective, gait very unsteady. She has poor safety awareness/decision making for assisted living. They would like her transferred to retirement facility. Pt states that they have talked to her about moving her to the half-way area but has not been moved yet. Anemia: Will be getting her iron pills from [facility]. Awaiting stool test results. Advised that she will need to see General Surgery for colonoscopy, especially if stool test comes back positive for blood. Strong positive family history of colon cancer. Below copied from Care Everywhere: Chief Complaint: Laceration Narrative Narrative: Patient is an 89-year-old female with history of hypertension hyperlipidemia, who currently is a DNR CC, living in a retirement facility presented to the emergency department after mechanical fall. Patient she was sitting in her chair when the phone rang, she went to reach for her phone falling out striking the back lateral part of her head. Patient does have a 1 cm laceration peer denies any LOC. Patient is currently not on any blood thinning medicine. Patient does have a history of falls. Tetanus vaccination unknown. Treatment and Re-Evaluation :: Differential diagnosis includes however is not limited to: Concussion, intracranial bleeding, skull fracture, simple scalp laceration Patient appears generally well, vital signs are stable, patient is nontoxic-appearing. Presenting to the emergency department complaints of mechanical fall striking the back of her head. Secondary the patient's age, CT scan of the brain, cervical spine will be obtained. I will need to place tang to the laceration to the scalp. All radiologic examinations were read, reviewed by the emergency department attending. From these reads, a plan of care will be put in place. Upon cleansing the wound, using lidocaine with epinephrine, the wound is 1.5 cm in length. The edges approximated nicely. Sterile gloves, sterile drapes were used. I was able to irrigate with 200 cc normal saline. 3 simple tang were placed, edges approximated nicely. Patient currently waiting on the CT scan of the brain as well as her cervical spine. Patient is continually acting appropriate. CT scan of the brain, cervical spine were gross unremarkable. At this time, patient will have these tang removed in 1 week. She will continue to ice the elevated area. She would not get up until she gets help at the nursing facility. Patient is agreeable with this plan. All questions were answered, stable for discharge. MDM MDM Narrative Medical decision making narrative: Supervisory Physician Note Patient was seen and examined with the Advanced Practice Provider. Nursing notes and vital signs have been reviewed. Pertinent old records have been reviewed. I agree with the essential elements of the ADAM's history, physical exam, assessment, and plan. The differential diagnosis and management options were discussed with the ADAM. I participated in determining and agree with the management, procedures, final impression and disposition as documented. See changes noted by me. Please see addendum or separate note for any additional details. 89-year-old female living in a care facility presents for scalp laceration after mechanical fall. Denies LOC. Not on blood thinners. History of falls. Denies any fever, chills, shortness of breath, chest pain abdominal pain, nausea, vomiting, dysuria. States it was purely mechanical fall. CT head and cervical spine ordered. Laceration was cleaned and repaired by ADAM, see separate procedure note. On chart review, patient was seen on 11/20/2021 for a laceration at that time was given tetanus. Patient is up-to-date on tetanus. CT head and cervical spine without acute traumatic (more content not included)... Normal [facility] CNPNon 10-05-2024 CNPN Telephone (FAMPWS) -------- TERRIE SAMANO ([id number]) 1935 F Date Time Provider Department 10/05/24 JORDAN LANDON [facility] During your visit today, we recorded the following information about you: Jordan Landon MD 10/05/2024 4:20 PM Signed Please notify patient that her stool test was positive for blood, so she should keep her appt with Dr Lakhani as scheduled MD Reynold Douglass Rilee, MA 10/05/2024 4:30 PM Signed Pt called and notified of results and recommendations below from Provider. Pt verbalized understanding and will keep appt as scheduled on 10/16. Lyn Quick MA Allergies As of Date: 10/05/2024 Noted Allergy Reaction COUGH SYRUP (GUAIFENESIN) 07/30/2009 2 - Rash IODINE 07/30/2009 2 - Rash Date Reviewed: 10/05/2024 Reviewed by: Citlalli Brown MA - Fully Assessed Reason for Visit: Results [95] Prescriptions as of 10/05/2024 - ferrous sulfate 325 mg (65 mg iron) tablet Take 1 tablet by mouth once daily. - gabapentin (NEURONTIN) 300 mg capsule Take 1 capsule by mouth once daily for 180 days. - dilTIAZem CD (CARDIZEM CD) 120 mg 24 hr capsule Take 1 capsule by mouth once daily. - losartan (COZAAR) 100 mg tablet Take 1 tablet by mouth once daily. - nystatin (MYCOSTATIN) cream Apply to affected area once daily as needed. - pravastatin (PRAVACHOL) 20 mg tablet Take 1 tablet by mouth once daily. - sertraline (ZOLOFT) 50 mg tablet TAKE 2 TABLETS ONE TIME DAILY - vibegron (GEMTESA) 75 mg tablet Take 1 tablet by mouth once daily. - acetaminophen (TYLENOL) 325 mg tablet Take 2 tablets by mouth every 6 hours as needed for pain. - carboxymethylcellulose sodium (REFRESH OPHTHALMIC) Use 1 Drop in eyes as needed. - triamcinolone (KENALOG) 0.025 % cream Apply to affected area twice daily. - vit C/E/Zn/coppr/lutein/zeax an (PRESERVISION AREDS 2 ORAL) Take 1 capsule by mouth twice daily. - calcium carbonate(CALTRATE 600 600 MG (1,500 MG) TAB) Take by mouth once daily. - aspirin(ECOTRIN LOW STRENGTH 81 MG TAB) Take one(1) tablet daily. Meds Comments as of 03/23/2024: Uses Biofreeze topical in the am on back Problem List As Of Date 10/05/2024 Noted Resolved Calcaneal Spur [M77.30] 07/30/2009 Sprain [...] stenosis [I34.2] 12/31/2023 Encounter Status:Closed by LYN QUICK on 10/05/24 [facility] 10-03-2024 CNPN Telephone (FAMPWS) -------- TERRIE SAMANO ([id number]) 1935 F Date Time Provider Department 10/03/24 JORDAN LANDON [facility] During your visit today, we recorded the following information about you: Lyn Quick MA 10/03/2024 4:34 PM Signed Office received fax from James Delgado regarding patient. Please review paperwork and fax back to [phone]. Lyn Quick MA Fax notes that pt fell this afternoon. Resident has had 5 falls within the past 30 days. PT/OT no longer effective, gait very unsteady. Poor safety awareness/decision making for assisted living. DO you recommend transfer to a SNF. Please advise. Lyn Quick MA 10/06/2024 2:13 PM Signed Completed by PCP and faxed back. Was discussed with pt during OV. Lyn Quick MA Allergies As of Date: 10/03/2024 Noted Allergy Reaction COUGH SYRUP (GUAIFENESIN) 07/30/2009 2 - Rash IODINE 07/30/2009 2 - Rash Date Reviewed: 09/29/2024 Reviewed by: Lyn Quick MA - Fully Assessed Reason for Visit: Electronic Communication [890] Cmt: James Delgado Prescriptions as of 10/06/2024 - ferrous sulfate 325 mg (65 mg iron) tablet Take 1 tablet by mouth once daily. - gabapentin (NEURONTIN) 300 mg capsule Take 1 capsule by mouth once daily for 180 days. - dilTIAZem CD (CARDIZEM CD) 120 mg 24 hr capsule Take 1 capsule by mouth once daily. - losartan (COZAAR) 100 mg tablet Take 1 tablet by mouth once daily. - nystatin (MYCOSTATIN) cream Apply to affected area once daily as needed. - pravastatin (PRAVACHOL) 20 mg tablet Take 1 tablet by mouth once daily. - sertraline (ZOLOFT) 50 mg tablet TAKE 2 TABLETS ONE TIME DAILY - vibegron (GEMTESA) 75 mg tablet Take 1 tablet by mouth once daily. - acetaminophen (TYLENOL) 325 mg tablet Take 2 tablets by mouth every 6 hours as needed for pain. - carboxymethylcellulose sodium (REFRESH OPHTHALMIC) Use 1 Drop in eyes as needed. - triamcinolone (KENALOG) 0.025 % cream Apply to affected area twice daily. - vit C/E/Zn/coppr/lutein/zeax an (PRESERVISION AREDS 2 ORAL) Take 1 capsule by mouth twice daily. - calcium carbonate(CALTRATE 600 600 MG (1,500 MG) TAB) Take by mouth once daily. - aspirin(ECOTRIN LOW STRENGTH 81 MG TAB) Take one(1) tablet daily. Meds Comments as of 03/23/2024: Uses Biofreeze topical in the am on back Problem List As Of Date 10/03/2024 Noted Resolved Calcaneal Spur [M77.30] 07/30/2009 Sprain [...] stenosis [I34.2] 12/31/2023 Encounter Status:Closed by LYN QUICK on 10/06/24 [facility] JAZMYNETERRIE Ricardo ([id number]) 1935 F Date Time Provider Department 10/03/24 JORDAN LANDON [facility] During your visit today, we recorded the following information about you: Jordan Landon MD 10/03/2024 2:06 PM Signed Please notify patient that her lab results do show an iron deficiency anemia. I would suggest starting on iron once daily as ordered, and recheck labs in one month. She may need to see Surgery about getting GI scope done to see if she is losing blood there; I am waiting the result of her stool test to decide this. Jordan Landon MD . Lyn Quick MA 10/03/2024 2:59 PM Signed Pt called and notified of Providers response below and recommendations. Pt has verbalized understanding. Pt has upcoming appt on 10/05 and will discuss further at this time on if further testing is needed. Lyn Quick MA Allergies As of Date: 10/03/2024 Noted Allergy Reaction COUGH SYRUP (GUAIFENESIN) 07/30/2009 2 - Rash IODINE 07/30/2009 2 - Rash Date Reviewed: 09/29/2024 Reviewed by: Lyn Quick MA - Fully Assessed Reason for Visit: Results [95] Primary Visit Diagnosis:Anemia, unspecified type [D64.9] Order(s):ferrous sulfate 325 mg (65 mg iron) tabletTake 1 tablet by mouth once daily.Disp: 30 tabletRfl: 5 COMPLETE BLOOD COUNT [SQCBC] Order #: [id number] FUTURE IRON AND TIBC [SQIRON] Order #: [id number] FUTURE Prescriptions as of 10/03/2024 - ferrous sulfate 325 mg (65 mg iron) tablet Take 1 tablet by mouth once daily. - gabapentin (NEURONTIN) 300 mg capsule Take 1 capsule by mouth once daily for 180 days. - dilTIAZem CD (CARDIZEM CD) 120 mg 24 hr capsule Take 1 capsule by mouth once daily. - losartan (COZAAR) 100 mg tablet Take 1 tablet by mouth once daily. - nystatin (MYCOSTATIN) cream Apply to affected area once daily as needed. - pravastatin (PRAVACHOL) 20 mg tablet Take 1 tablet by mouth once daily. - sertraline (ZOLOFT) 50 mg tablet TAKE 2 TABLETS ONE TIME DAILY - vibegron (GEMTESA) 75 mg tablet Take 1 tablet by mouth once daily. - acetaminophen (TYLENOL) 325 mg tablet Take 2 tablets by mouth every 6 hours as needed for pain. - carboxymethylcellulose sodium (REFRESH OPHTHALMIC) Use 1 Drop in eyes as needed. - triamcinolone (KENALOG) 0.025 % cream Apply to affected area twice daily. - vit C/E/Zn/coppr/lutein/zeax an (PRESERVISION AREDS 2 ORAL) Take 1 capsule by mouth twice daily. - calcium carbonate(CALTRATE 600 600 MG (1,500 MG) TAB) Take by mouth once daily. - aspirin(ECOTRIN LOW STRENGTH 81 MG TAB) Take one(1) tablet daily. 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 Encounter Status:Closed by LYN QUICK on 10/03/24 Normal [facility] Hemoccult Stl Ql IAon 2023 Lower GI hemoglobin IA Ql (Stl) Positive Abnormal Negative [facility] Comment on above: Order Comment: Speci men Type: STOOL SPECIMENOrdering Facility: [facility] Address: [address] [place] [address] Performed By: #### 2 [id number] ####[facility] LABCLIA [id number] [place] [address] [place] Chris 10-02-2024 [facility]FAM[facility] -------- TERRIE SAMANO ([id number]) 1935 F Date Time Provider Department 10/02/24 [facility] During your visit today, we recorded the following information about you: Lyn Quick MA 10/02/2024 12:34 PM Signed Office received fax with an update from James Delgado Nurse regarding pt on 09/30/24. Routed to PCP. Once reviewed fax back to [phone]. Lyn Quick MA Nurse note 09/30/24 15:01: Note text: Called to room by aide. Found resident lying on her back in her living room, small pool of blood under her head. AANDOx3. Stated she was trying to get to her phone to answer it and lost her balance. Laceration to back of head cleaned, bandage applied, decision made to send to the ER for evaluation. Squad called and here to transport at 2:37 pm. Sister, [place] Pin Game Machine Inspector, and PCP notified. Jordan Landon MD 10/03/2024 1:17 PM Signed Noted Jordan Landon MD Allergies As of Date: 10/02/2024 Noted Allergy Reaction COUGH SYRUP (GUAIFENESIN) 07/30/2009 2 - Rash IODINE 07/30/2009 2 - Rash Date Reviewed: 09/29/2024 Reviewed by: Lyn Quick MA - Fully Assessed Reason for Visit: Electronic Communication [890] Cmt: James Delagdo Prescriptions as of 10/03/2024 - gabapentin (NEURONTIN) 300 mg capsule Take 1 capsule by mouth once daily for 180 days. - dilTIAZem CD (CARDIZEM CD) 120 mg 24 hr capsule Take 1 capsule by mouth once daily. - losartan (COZAAR) 100 mg tablet Take 1 tablet by mouth once daily. - nystatin (MYCOSTATIN) cream Apply to affected area once daily as needed. - pravastatin (PRAVACHOL) 20 mg tablet Take 1 tablet by mouth once daily. - sertraline (ZOLOFT) 50 mg tablet TAKE 2 TABLETS ONE TIME DAILY - vibegron (GEMTESA) 75 mg tablet Take 1 tablet by mouth once daily. - acetaminophen (TYLENOL) 325 mg tablet Take 2 tablets by mouth every 6 hours as needed for pain. - carboxymethylcellulose sodium (REFRESH OPHTHALMIC) Use 1 Drop in eyes as needed. - triamcinolone (KENALOG) 0.025 % cream Apply to affected area twice daily. - vit C/E/Zn/coppr/lutein/zeax an (PRESERVISION AREDS 2 ORAL) Take 1 capsule by mouth twice daily. - calcium carbonate(CALTRATE 600 600 MG (1,500 MG) TAB) Take by mouth once daily. - aspirin(ECOTRIN LOW STRENGTH 81 MG TAB) Take one(1) tablet daily. Meds Comments as of 03/23/2024: Uses Biofreeze topical in the am on back Problem List As Of Date 10/02/2024 Noted Resolved Calcaneal Spur [M77.30] 07/30/2009 Sprain [...] valve stenosis [I34.2] 12/31/2023 Encounter Status:Closed by JORDAN LANDON on 10/03/24 Normal [facility] Brain/Head without Contrasto n 09-30-2024 Brain/Head without Contrast [facility] [address] [place] [address] Brain/Head without Contrast MR#: [id number] Acct: [id number] Name: JAZMYNETERRIE Ricardo Rep #: [id number] : 1935 F 89 From: Ady Dye DO PCP: Dr. Jordan Landon MD Status: REG ER Study: Brain/Head without Contrast Date of Exam: 05/17 Exam# [id number] Ordering Dr: Artur Kerr [id number] STUDY: CT BRAIN WITHOUT CONTRAST REASON FOR EXAM: Female, 89 years old. fall RADIATION DOSAGE (If Supplied By Facility): CTDIvol = ( 44.99 ) mGy, DLP = ( 796.11 ) mGycm TECHNIQUE: Transaxial CT imaging of the brain was performed without administration of intravenous contrast material. Individualized dose optimization techniques were used for this CT. COMPARISON: No relevant priors. FINDINGS: Normal soft tissue structures. Normal calvarium. Slightly prominent ventricles and extra-axial spaces with mild atrophy. Bilateral white matter microangiopathic ischemic changes of the cerebral hemispheres. Normal basal ganglia and thalami. Normal brainstem. Normal cerebellum. There is no intracranial hemorrhage. There are no findings of an acute ischemic infarction. Normal visualized paranasal sinuses. CT/Brain/Head without Contrast IMPRESSION: Age-related changes of the brain. Electronically Signed: Ady Dye DO at 16:51 EST Reading Location ID and State: [facility] / [place] Tel [phone], Service support , CC: MEHUL Kerr; Dr. Jordan Landon MD Bottled Beverage Inspector: Signed Normal [facility] Emergency Department Summary on 09-30-2024 Emergency Department Summary [facility] Medical Records Department [address] [place] [address] Emergency Department Summary 09/30/24 MR#: [id number] Acct: [id number] Name: TERRIE SAMANO Rep #: [id number] : 1935 89 From: Torrey Helms DO PCP: Dr. Jordan Landon MD Status:DEP ER Location: ED HPI History of Present Illness Chief Complaint: Laceration Narrative Narrative: Patient is an 89-year-old female with history of hypertension hyperlipidemia, who currently is a DNR CC, living in a retirement facility presented to the emergency department after mechanical fall. Patient she was sitting in her chair when the phone rang, she went to reach for her phone falling out striking the back lateral part of her head. Patient does have a 1 cm laceration peer denies any LOC. Patient is currently not on any blood thinning medicine. Patient does have a history of falls. Tetanus vaccination unknown. [facility] Medical History Obesity Frequent falls Anxiety and depression Chronic anemia Hyperlipidemia Osteoarthritis HTN (hypertension) Fibromyalgia Spinal stenosis Macular degeneration Urine incontinence Fall Home Medications ???Medication ???Instructions ???Recorded ???Last Taken ???Type aspirin 81 mg tablet,delayed 81 mg PO DAILY@0800 01/15/17 Unknown History release calcium 600 mg (as 1 ea PO DAILY 01/15/17 Unknown History carbonate)-vitamin D3 20 mcg (800 unit) tablet (Caltrate with Vitamin D3) gabapentin 100 mg capsule 300 mg PO DAILY neuropathy 01/15/17 06/13/18 06:00 History (Neurontin) bmjimldsmch-qzljgsrij-yk t C-Mn 500 2 ea PO DAILY 01/15/17 Unknown History mg-400 mg capsule meloxicam 15 mg tablet (Mobic) 15 mg PO DAILY 01/15/17 Unknown History qyxcmbfe-soky-jjbx 8 mg-folic 400 1 ea PO DAILY 01/15/17 Unknown History mcg-K 50 mcg-lutein 300 mcg tablet (Centrum Silver Women) pravastatin 20 mg tablet 20 mg PO QHS 01/15/17 Unknown History sertraline 50 mg tablet 100 mg PO DAILY 01/15/17 Unknown History vit C 250 mg-vit E 90 mg-zinc 40 2 ea PO DAILY 10/14/17 Unknown History mg-copper 1 qn-asnlbn-kvqijl capsule (PreserVision AREDS-2) docusate sodium 100 mg capsule 100 mg PO BID #30 caps 06/16/18 Unknown Rx magnesium hydroxide 400 mg/5 mL 30 ml PO DAILY PRN PRN 06/16/18 Unknown Rx oral suspension Constipation ##14 diltiazem HCl 120 mg 120 mg PO DAILY 11/20/21 Unknown History capsule,extended release 24 hr losartan 100 mg tablet 100 mg PO DAILY 01/04/23 Unknown History nystatin 100,000 unit/gram topical 1 unit topical DAILY 01/04/23 Unknown History cream oxybutynin chloride 10 mg 10 mg PO DAILY 01/04/23 Unknown History tablet,extended release 24 hr Allergy/AdvReac Type Severity Reaction Status Date / Time iodine Allergy Rash Verified 09/30/24 15:01 COUGH SYRUP W/IODINE Allergy Rash Uncoded 01/03/23 22:16 Family History Mother Colon cancer Maternal family history of colon cancer with metastatic disease to the liver Father Prostate cancer Paternal family history of prostate cancer with metastatic disease to the bones. Sister Colon cancer Breast cancer Surgical History Status post hip surgery S/P carpal tunnel release S/P cataract extraction History of eye surgery History of hysterectomy History of appendectomy History of tonsillectomy and adenoidectomy Social History housing: assisted living facility Smoking Status: Never smoker alcohol intake: never substance use type: does not use ROS ROS ED ROS Narrative Constitutional: Negative for fever, chills, weight loss, weakness Eyes: Negative for vision loss, vision change, double vision ENT: Negative for any sore throat, ear pain, congestion Cardiovascular: Negative for any chest pain, tightness, palpitations Respiratory: Negative for any cough, sputum production, hemoptysis, dyspnea, dyspnea on exertion, orthopnea Gastrointestinal: Negative for any abdominal pain, nausea, vomiting, diarrhea, constipation, blood in stool, blood in vomit : Negative for any urinary frequency, dysuria, retention, blood in urine Muscle skeletal: Negative for any neck pain, back pain Neurological: Negative for any headache, syncope, dizziness Skin: Negative for any rashes, itching, abrasions. Positive for laceration to the occiput Psychiatric: Negative for any depression, anxiety, stress, suicidal ideation, homicidal ideation Hematologic: Negative for any excessive bruising, easy bleeding EXAM Physical Exam Narrative Exam Narrative: Vital signs reviewed. Patient's acting appropriate, in no distress. (more content not included)... Normal [facility] Spine Cervical without Contr ason 09-30-2024 Spine Cervical without Contras [facility] [address] [place] [address] Spine Cervical without Contras MR#: [id number] Acct: [id number] Name: TERRIE SAMANO Rep #: [id number] : 1935 F 89 From: Ady Dye DO PCP: Dr. Jordan Landon MD Status: REG ER Study: Spine Cervical without Contras Date of Exam: 12/01/23 Exam# [id number] Ordering Dr: Artur Kerr MACHINE FILLER-C [id number] STUDY: CT CERVICAL SPINE WITHOUT CONTRAST REASON FOR EXAM: Female, 89 years old. fall RADIATION DOSAGE (If Supplied By Facility): CTDIvol = ( 23.98 ) mGy, DLP = ( 422.24 ) mGycm TECHNIQUE: High resolution transaxial imaging was performed without contrast material. Sagittal and coronal images were reconstructed. Individualized dose optimization techniques were used for this CT. COMPARISON: None FINDINGS: Normal craniovertebral junction. Normal anterior atlantoaxial articulation. Normal odontoid process. Normal cervical lordosis. Normal vertebral bodies and posterior osseous elements. C2-3: Normal endplates. Normal disc height and morphology. Normal central canal. Facet hypertrophy lightly narrowing the left intervertebral neural foramen. C3-4: Normal endplates. Minimal spondylolisthesis. Normal disc height and morphology. Normal central canal. Facet hypertrophy and uncovertebral spurs narrowing the intervertebral neuroforamina. C4-5: Mild spurring at the endplates. Normal disc height with vacuum phenomenon. Normal central canal. Facet hypertrophy and uncovertebral spurs narrowing the intervertebral neuroforamina. C5-6: Degenerative spurring at the endplates. Narrowed disc height with vacuum phenomenon. Posterior spurring protruding into the central canal. Uncovertebral spurs narrowing the intervertebral neuroforamina, right more than left. C6-7: Degenerative spurring at the endplates. Narrowed disc height. Normal central canal. Uncovertebral spurs slightly narrowing the intervertebral neuroforamina. C7-T1: Degenerative spurring at the endplates. Narrowed disc height with vacuum phenomenon. Normal central canal. Uncovertebral spurs slightly narrowing the intervertebral neuroforamina. Normal visualized soft tissue structures. CT/Spine Cervical without Contras IMPRESSION: Degenerative changes of the cervical spine. Electronically Signed: Ady Dye DO at 18:12 EST Reading Location ID and State: [facility] / [place] Tel [phone], Service support , CC: MEHUL Kerr; Dr. Jordan Landon MD Bottled Beverage Inspector: Signed Normal [facility] CBC panel Auto (Bld)on 09-29 Erythrocyte distribution width (RBC) [Ratio] 16.3 % High 11.5-15.0 [facility] Comment on above: Order Comment: Speci men Type: BLOOD SPECIMENOrdering Facility: [facility] Address: [address] [place] [address] Performed By: #### 5 8410-2, WAMMR ####[facility] LABIA [id number] [place] [address] [place] Hematocrit (Bld) [Volume fraction] 33.9 % Low 36.0-46.0 [facility] Comment on above: Order Comment: Speci men Type: BLOOD SPECIMENOrdering Facility: [facility] Address: [address] [place] [address] Performed By: #### 5 8410-2, WAMMR ####[facility] LABCLIA [id number] [place] [address] [place] Hemoglobin (Bld) [Mass/Vol] 10.0 g/dL Low 11.5-15.5 [facility] Comment on above: Order Comment: Speci men Type: BLOOD SPECIMENOrdering Facility: [facility] Address: [address] [place] [address] Performed By: #### 5 8410-2, ANNETTE ####[facility] LABCLIA [id number] [place] [address] [place] MCH (RBC) [Entitic mass] 26.8 pg Normal 26.0-34.0 [facility] Comment on above: Order Comment: Speci men Type: BLOOD SPECIMENOrdering Facility: [facility] Address: [address] [place] [address] Performed By: #### 5 8410-2, EDITHR ####[facility] LABCLIA [id number] [place] [address] [place] MCHC (RBC) [Mass/Vol] 29.5 g/dL Low 30.5-36.0 [facility] Comment on above: Order Comment: Speci men Type: BLOOD SPECIMENOrdering Facility: [facility] Address: [address] [place] [address] Result Comment: Cold Agglutinin, Incubated at 37 degrees. Reviewed Performed By: #### 5 8410-2, EDITHR ####[facility] LABIA [id number] [place] [address] [place] MCV (RBC) [Entitic vol] 90.9 fL Normal 80.0-100.0 [facility] Comment on above: Order Comment: Speci men Type: BLOOD SPECIMENOrdering Facility: [facility] Address: [address] [place] [address] Performed By: #### 5 8410-2, EDITHR ####[facility] LABCLIA [id number] [place] [address] [place] Nucleated RBC (Bld) [#/Vol] 10*3/uL Normal <0.01 [facility] Comment on above: Order Comment: Speci men Type: BLOOD SPECIMENOrdering Facility: [facility] Address: [address] [place] [address] Performed By: #### 5 8410-2, WAMMR ####[facility] LABCLIA [id number] [place] [address] [place] Platelet mean volume (Bld) [Entitic vol] 10.5 fL Normal 9.0-12.7 [facility] Comment on above: Order Comment: Speci men Type: BLOOD SPECIMENOrdering Facility: [facility] Address: [address] [place] [address] Performed By: #### 5 8410-2, WAMMR ####[facility] LABCLIA [id number] [place] [address] [place] Platelets (Bld) [#/Vol] 263 10*3/uL Normal 150-400 [facility] Comment on above: Order Comment: Speci men Type: BLOOD SPECIMENOrdering Facility: [facility] Address: [address] [place] [address] Performed By: #### 5 8410-2, WAMMR ####[facility] LABIA [id number] [place] [address] [place] RBC (Bld) [#/Vol] 3.73 10*6/uL Low 3.90-5.[address] [facility] Comment on above: Order Comment: Speci men Type: BLOOD SPECIMENOrdering Facility: [facility] Address: [address] [place], [place] [address] Performed By: #### 5 8410-2, WAMMR ####[facility] LABIA [id number] [place] [address] [place] WBC (Bld) [#/Vol] 8.31 10*3/uL Normal 3.70-11.[address] [facility] Comment on above: Order Comment: Speci men Type: BLOOD SPECIMENOrdering Facility: [facility] Address: [address] [place] [address] Result Comment: Resu lts checked and verified.No clot detected. Performed By: #### 5 8410-2, ANNETTE ####[facility] LABCLIA [id number] [id number] [id number] [place] CNOVon 09-29-2024 CNOV Office Visit (FAMPWS ) -------- TERRIE SAMANO ([id number]) 1935 F Date Time Provider Department 09/29/24 3:00 PM JORDAN LANDON [facility] During your visit today, we recorded the following information about you: Pulse Respiration Blood pressure Weight 78/minute 18/minute 124/70 73.7 kg Jordan Landon MD 09/29/2024 5:27 PM Signed Chief Complaint Patient presents with: F/U 6 Month HPI Terrie Silva Jazmyne is a 89 year old female who presents here today for 6 month follow up. Resides at [facility]. Pt is involved in a Long Life Study. Uses a walker and a Rolator, has had multiple falls. [facility] reports these to the office. She does not do steps well, she uses a lift to get on and off the bus. Had recent fall while at the [employer] about 3-4 weeks ago. Suffered a laceration near left eye brow and had to have sutures placed. Had imaging completed, showing negative finding. Is doing PT at [facility], which patient states is challenging. No bowel or GI. Follows with Urologist, Dr. Mullen, has upcoming appt in January. She is taking Gemtesa 75 mg daily at supper time. Uses depends and puts pad down on bed due to night time accidents. Reports no day time accidents. Has overactive bladder and urinary incontinence. Depression/AGUILAR: Taking Zoloft 50 mg 2 pills once daily. Overall doing pretty well on this regimen. Notes that PT is wanting her to go through her apartment and get rid of stuff/paperwork she's accumulated. Edema/DVT: taking Eliquis 5 mg BID and Lasix 20 mg. Eliquis was held last visit to see if there would be any improvement in her hemoglobin, was low. Lipid: Tries to watch her diet. [facility] does have a set diet plan there, but you can pick other options. Is currently doing PT and they are challenging her. Does do some stretching. Taking Pravastatin 20 mg daily and ASA 81 mg daily. HTN: Does not check BP at home, but the Nurses at [facility] do check her when an incident occurs. no chest pains, dizziness, or shortness of breath. Taking Losartan 100 mg daily and Cardizem 120 mg daily Pain: Chronic back pain and arthritis pain. Takes Gabapentin 300 mg once daily. Does do exercises to help with pain in her back and neck. Receives injections by Dr. Leger in her shoulders and previously in her neck and back. Does do exercises for her back/neck. Was recently exposed to another resident at [facility] who was sick with the Flu. She was quarantined to her room from 09/21/24 - 09/24/24. She still has symptoms of fatigue, cough and slight sore throat. Is gargling salt water occasionally to help with her sore throat. Wondering if okay to receive a Covid shot today or if she should wait a little longer since she was just ill. HM - Shingles/RSV not covered at the office. Received Flu shot. Asking if she can get Covid vaccine today. Has Adv Dir/Living Will. Past medical history, appointments, medications, allergies reviewed. [...] to affected area once daily as needed. pravastatin (PRAVACHOL) 20 mg tablet Take 1 tablet by mouth once daily. sertraline (ZOLOFT) 50 mg tablet TAKE 2 TABLETS ONE TIME DAILY vibegron (GEMTESA) 75 mg tablet Take 1 [...] Apply to affected area twice daily. vit C/E/Zn/coppr/lutein/zeax a (more content not included)... Normal [facility] Iron and Iron binding capaci ty panelon 09-29-2024 Iron [Mass/Vol] 35 ug/dL Low 41-186 [facility] Comment on above: Order Comment: Speci men Type: BLOOD SPECIMENOrdering Facility: [facility] Address: [address] [place] [address] Performed By: #### 5 0190-8 ####[facility] LABCLIA [id number] [place] [address] [place] Iron binding capacity [Mass/Vol] 389 ug/dL High 232-386 [facility] Comment on above: Order Comment: Speci men Type: BLOOD SPECIMENOrdering Facility: [facility] Address: [address] [place] [address] Performed By: #### 5 0190-8 ####[facility] LABCLIA [id number] [place] [address] [place] Iron/TIBC [Molar ratio] 9.0 % Low 15.0-57.0 [facility] Comment on above: Order Comment: Speci men Type: BLOOD SPECIMENOrdering Facility: [facility] Address: [address] [place] [address] Performed By: #### 5 0190-8 ####[facility] LABCLIA [id number] [place] [address] [place] MORPH WAM REFLEXon 4 Anisocytosis Ql (Bld) Present Normal [facility] Comment on above: Order Comment: Speci men Type: BLOOD SPECIMENOrdering Facility: [facility] Address: [address] [place] [address] Performed By: #### 5 8410-2, WAMMR ####[facility] LABCLIA [id number] [place] [address] [place] COLD AGGLUTININ Present Normal [facility] Comment on above: Order Comment: Speci men Type: BLOOD SPECIMENOrdering Facility: [facility] Address: [address] [place] [address] Performed By: #### 5 8410-2, WAMMR ####[facility] LABCLIA [id number] [place] [address] [place] Ovalocytes LM Ql (Bld) Few Normal [facility] Comment on above: Order Comment: Speci men Type: BLOOD SPECIMENOrdering Facility: [facility] Address: [address] [place] [address] Performed By: #### 5 8410-2, WAMMR ####[facility] LABCLIA [id number] [place] [address] [place] Platelets Estimate (Bld) [#/Vol] Adequate Normal [facility] Comment on above: Order Comment: Speci men Type: BLOOD SPECIMENOrdering Facility: [facility] Address: [address] [place] [address] Performed By: #### 5 8410-2, WAMMR ####[facility] LABCLIA [id number] [address] [address] [place] RBC FRAGMENTS Few Abnormal None Seen [facility] Comment on above: Order Comment: Speci men Type: BLOOD SPECIMENOrdering Facility: [facility] Address: [address] [place] [address] Performed By: #### 5 8410-2, WAMMR ####[facility] LABCLIA [id number] [place] [address] [place] RED CELL MORPH Reviewed: see result s of individual morphologies Normal [facility] Comment on above: Order Comment: Speci men Type: BLOOD SPECIMENOrdering Facility: [facility] Address: [address] [place] [address] Performed By: #### 5 8410-2, WAMMR ####[facility] LABCLIA [id number] [place] [address] [place] CBC W/Diff, Automatedon 12-0 -2023 Absolute Lymph 1.68 X10 3/uL Normal 0.83-4.51 [facility] Comment on above: Order Comment: 174 Performed By: #### L 100.0100, L500.4100, L500.4050 #### [facility] [address] [place], [address] Absolute Neut 3.1 X10 3/uL Normal 2.0-7.7 [facility] Comment on above: Order Comment: 174 Performed By: #### L 100.0100, L500.4100, L500.4050 #### [facility] [address] [place], [address] Basophils/100 WBC (Bld) 1.2 % High 0-1 C [facility] Comment on above: Order Comment: 174 Performed By: #### L 100.0100, L500.4100, L500.4050 #### [facility] [address] [place], [address] Eosinophils/100 WBC (Bld) 5.9 % High 0-5 [facility] Comment on above: Order Comment: 174 Performed By: #### L 100.0100, L500.4100, L500.4050 #### [facility] [address] [place], [address] Erythrocyte distribution width (RBC) [Ratio] 16.1 % High 11.6-14.6 [facility] Comment on above: Order Comment: 174 Performed By: #### L 100.0100, L500.4100, L500.4050 #### [facility] [address] [place], [address] Hematocrit (Bld) [Volume fraction] 32.8 % Low 37-47 [facility] Comment on above: Order Comment: 174 Performed By: #### L 100.0100, L500.4100, L500.4050 #### [facility] [address] [place], [address] Hemoglobin (Bld) [Mass/Vol] 9.9 g/dL Low 12.0-15.0 [facility] Comment on above: Order Comment: 174 Performed By: #### L 100.0100, L500.4100, L500.4050 #### [facility] [address] [place], [address] IG% 0.300 Normal 0.0-0.9 [facility] Comment on above: Order Comment: 174 Result Comment: IG% - Immature Granulocytes (promyelocytes, myelocytes and metamyelocytes) > 1% indicates that a LEFT SHIFT is Present. Performed By: #### L 100.0100, L500.4100, L500.4050 #### [facility] [address] [place], [address] Lymphocytes/100 WBC (Bld) 29.4 % Normal 19-41 [facility] Comment on above: Order Comment: 174 Performed By: #### L 100.0100, L500.4100, L500.4050 #### [facility] [address] [place], [address] MCH (RBC) [Entitic mass] 26.8 pg Low 27.0-32.0 [facility] Comment on above: Order Comment: 174 Performed By: #### L 100.0100, L500.4100, L500.4050 #### [facility] [address] [place], [address] MCHC (RBC) [Mass/Vol] 30.2 g/dL Low 32-36 [facility] Comment on above: Order Comment: 174 Performed By: #### L 100.0100, L500.4100, L500.4050 #### [facility] [address] [place], [address] MCV (RBC) [Entitic vol] 88.9 fL Normal 81-99 C [facility] Comment on above: Order Comment: 174 Performed By: #### L 100.0100, L500.4100, L500.4050 #### [facility] [address] [place], [address] Monocytes/100 WBC (Bld) 9.4 % Normal 0-10 C [facility] Comment on above: Order Comment: 174 Performed By: #### L 100.0100, L500.4100, L500.4050 #### [facility] [address] [place], [address] Neutrophils/100 WBC (Bld) 53.8 % Normal 47-70 [facility] Comment on above: Order Comment: 174 Performed By: #### L 100.0100, L500.4100, L500.4050 #### [facility] [address] [place], [address] Nucleated RBC (Bld) [#/Vol] 0 10*3/uL Normal 0-5 [facility] Comment on above: Order Comment: 174 Performed By: #### L 100.0100, L500.4100, L500.4050 #### [facility] [address] [place], [address] Platelet mean volume (Bld) [Entitic vol] 10.8 fL Normal 6.2-12.0 [facility] Comment on above: Order Comment: 174 Performed By: #### L 100.0100, L500.4100, L500.4050 #### [facility] [address] [place], [address] Platelets (Bld) [#/Vol] 235 10*3/uL Normal 150-450 [facility] Comment on above: Order Comment: 174 Performed By: #### L 100.0100, L500.4100, L500.4050 #### [facility] [address] [place], [address] RBC (Bld) [#/Vol] 3.69 10*6/uL Low 4.2-5.4 [facility] Comment on above: Order Comment: 174 Performed By: #### L 100.0100, L500.4100, L500.4050 #### [facility] [address] [place], [address] RDW SD 52.2 fl High 35.1-43.9 [facility] Comment on above: Order Comment: 174 Performed By: #### L 100.0100, L500.4100, L500.4050 #### [facility] [address] [place], [address] WBC (Bld) [#/Vol] 5.7 10*3/uL Normal 4.4-11.0 [facility] Comment on above: Order Comment: 174 Performed By: #### L 100.0100, L500.4100, L500.4050 #### [facility] [address] [place], [address] CBCDIF (EXTERNAL)on 09-25-20 24 BASO ABS [facility] EOS ABS [facility] HGB [facility] Lymphocytes (Bld) [#/Vol] 1.68 10*3/uL 1.2 - 4 K/uL [facility] MONO ABS [facility] NEUT ABS 3.1 K/uL 1.9 - 8 K/uL [facility] RBC [facility] RDW 16.1 K/uL Abnormal 140 - 440 K/uL [facility] WBC [facility] CMP (EXTERNAL)on 09-25-2024 Alk Phos Total 113 U/L 45 - 117 U/L [facility] Bili Total 0.40 mg/dL 0.2 - 1 mg/dL [facility] Calcium [Mass/Vol] 10.5 mg/dL Abnormal 8.5 - 10. 1 mg/dL [facility] GFR 106 mL/MIN [facility] GFR AFR AMER 128 mL/MIN [facility] Protein [Mass/Vol] 7.2 g/dL [facility] Comprehensive Metabolic Prof ilon 09-25-2024 Albumin [Mass/Vol] 3.3 g/dL Normal 3.2-5.0 [facility] Comment on above: Order Comment: 174 Performed By: #### L 100.0100, L500.4100, L500.4050 ####[facility] [address] [place], [address] Albumin/Globulin [Mass ratio] 0.8 {ratio} Low 0.9-2.4 [facility] Comment on above: Order Comment: 174 Performed By: #### L 100.0100, L500.4100, L500.4050 ####[facility] [address] [place], [address] ALK P 113 U/L Normal 45-117 [facility] Comment on above: Order Comment: 174 Performed By: #### L 100.0100, L500.4100, L500.4050 ####[facility] [address] [place], [address] ALT [Catalytic activity/Vol] 37 U/L Normal 13-56 [facility] Comment on above: Order Comment: 174 Performed By: #### L 100.0100, L500.4100, L500.4050 ####[facility] [address] [place], [address] AST [Catalytic activity/Vol] 45 U/L High 15-37 [facility] Comment on above: Order Comment: 174 Performed By: #### L 100.0100, L500.4100, L500.4050 ####[facility] [address] [place], [address] Bilirubin [Mass/Vol] 0.40 mg/dL Normal 0.20-1.00 [facility] Comment on above: Order Comment: 174 Result Comment: For patients on eltrombopag therapy, use of Dimension [place] TBIL is not recommended. Performed By: #### L 100.0100, L500.4100, L500.4050 ####[facility] [address] [place], [address] BUN/CRE 38.5 RATIO High 10-20 [facility] Comment on above: Order Comment: 174 Performed By: #### L 100.0100, L500.4100, L500.4050 ####[facility] [address] [place], [address] CA,Total 10.5 mg/dL High 8.5-10.1 [facility] Comment on above: Order Comment: 174 Performed By: #### L 100.0100, L500.4100, L500.4050 ####[facility] [address] [place], [address] Chloride [Moles/Vol] 111 mmol/L High 98-107 [facility] Comment on above: Order Comment: 174 Performed By: #### L 100.0100, L500.4100, L500.4050 ####[facility] [address] [place], [address] CO2 [Moles/Vol] 25.0 mmol/L Normal 21.0-32.0 [facility] Comment on above: Order Comment: 174 Performed By: #### L 100.0100, L500.4100, L500.4050 ####[facility] [address] [place], [address] Creatinine [Mass/Vol] 0.57 mg/dL Normal 0.55-1.02 [facility] Comment on above: Order Comment: 174 Result Comment: The validity of the calculated GFR GFRAA in patients over 70 years has not been determined. Clinical correlation is essential. Performed By: #### L 100.0100, L500.4100, L500.4050 ####[facility] [address] [place], [address] EST GFR - AA 128 mL/min Normal >60 [facility] Comment on above: Order Comment: 174 Result Comment: Afri can [place] GFR Calc Performed By: #### L 100.0100, L500.4100, L500.4050 ####[facility] [address] [place], [address] GAP 6 Normal 5-15 [facility] Comment on above: Order Comment: 174 Performed By: #### L 100.0100, L500.4100, L500.4050 ####[facility] [address] [place], [address] GFR/1.73 sq M.predicted among non-blacks MDRD (S/P/Bld) [Vol rate/Area] 106 mL/min/{1.73_m2} Normal >60 [facility] Comment on above: Order Comment: 174 Result Comment: Non- GFR Calc Performed By: #### L 100.0100, L500.4100, L500.4050 ####[facility] [address] [place], [address] Globulin (S) [Mass/Vol] 3.9 g/dL Normal 2.2-4.2 W [facility] Comment on above: Order Comment: 174 Performed By: #### L 100.0100, L500.4100, L500.4050 ####[facility] [address] [place], [address] Glucose [Mass/Vol] 101 mg/dL Normal 74-106 [facility] Comment on above: Order Comment: 174 Result Comment: Fast ing Glucose result from 100 to 125 mg/dL suggests IMPAIRED HOMEOSTASIS per A.D.A. criteria. Performed By: #### L 100.0100, L500.4100, L500.4050 ####[facility] [address] [place], [address] Potassium [Moles/Vol] 3.8 mmol/L Normal 3.5-5.1 [facility] Comment on above: Order Comment: 174 Performed By: #### L 100.0100, L500.4100, L500.4050 ####[facility] [address] [place], [address] Sodium [Moles/Vol] 142 mmol/L Normal 136-145 [facility] Comment on above: Order Comment: 174 Performed By: #### L 100.0100, L500.4100, L500.4050 ####[facility] [address] [place], [address] T PROT 7.2 g/dL Normal 6.4-8.2 [facility] Comment on above: Order Comment: 174 Performed By: #### L 100.0100, L500.4100, L500.4050 ####[facility] [address] [place], [address] Urea nitrogen [Mass/Vol] 22 mg/dL High 7-18 [facility] Comment on above: Order Comment: 174 Performed By: #### L 100.0100, L500.4100, L500.4050 ####[facility] [address] [place], [address] LIPID PANEL (EXTERNAL)on Non-HDL Cholesterol [facility] TC:HDL Ratio [facility] Lipid Profileon 09-25-2024 Cholesterol [Mass/Vol] 129 mg/dL Normal 200 Cl [facility] Comment on above: Order Comment: 174 Result Comment: <200 mg/dL Desirable 200-240 mg/dL Borderline >240 mg/dL High Risk Performed By: #### L 100.0100, L500.4100, L500.4050 ####[facility] [address] [place], [address] Cholesterol in HDL [Mass/Vol] 66 mg/dL Normal [facility] Comment on above: Order Comment: 174 Result Comment: The drugs N-Acetylcysteine and Metamizole may falsely depress this assay. Reference Range HDL <40 mg/dL Low HDL Cholesterol HDL >or= 60 mg/dL High HDL Cholesterol Performed By: #### L 100.0100, L500.4100, L500.4050 ####[facility] [address] [place], [address] Cholesterol in LDL [Mass/Vol] 53 mg/dL Normal 0-130 [facility] Comment on above: Order Comment: 174 Performed By: #### L 100.0100, L500.4100, L500.4050 ####[facility] [address] [place], [address] Cholesterol in VLDL [Mass/Vol] 10 mg/dL Normal 5-40 [facility] Comment on above: Order Comment: 174 Performed By: #### L 100.0100, L500.4100, L500.4050 ####[facility] [address] [place], [address] Triglyceride [Mass/Vol] 51 mg/dL Normal [facility] Comment on above: Order Comment: 174 Result Comment: The drugs N-Acetylcysteine and Metamizole may falsely depress this assay. Serum Triglycerides Reference Interval Normal <150 mg/dL Borderline high 150 - 199 mg/dL High 200 - 499 mg/dL Very High > or = 500 mg/dL Performed By: #### L 100.0100, L500.4100, L500.4050 ####[facility] [address] [place], [address] No Panel Informationon 09-25 Interpretation and review of laboratory results Abnormal [facility] CNPNon 09-22-2024 CNPN Telephone (FAMPWS) -------- TERRIE SAMANO ([id number]) 1935 F Date Time Provider Department 09/22/24 JORDAN LANDON [facility] During your visit today, we recorded the following information about you: Lyn Quick MA 09/22/2024 11:59 AM Signed Office received fax from [facility] with update regarding pt. Pt c/o of URI symptoms. Requesting Rx for Guaifenesin prn. Routed form to PCP to review and advise. Once reviewed fax back to [phone]. ALVARADO Kaur Mark D, MD 09/26/2024 4:56 PM Signed OK for guaifenesin as ordered on form; 200 mg q 6 hr prn MD Kevin Douglass Kathryn, MA 09/26/2024 5:01 PM Signed Form faxed. Citlalli Brown MA Allergies As of Date: 09/22/2024 Noted Allergy Reaction COUGH SYRUP (GUAIFENESIN) 07/30/2009 2 - Rash IODINE 07/30/2009 2 - Rash Date Reviewed: 03/23/2024 Reviewed by: Lyn Quick MA - Fully Assessed Reason for Visit: Electronic Communication [890] Cmt: [facility] Prescriptions as of 09/26/2024 - gabapentin (NEURONTIN) 300 mg capsule Take 1 capsule by mouth once daily for 180 days. - dilTIAZem CD (CARDIZEM CD) 120 mg 24 hr capsule Take 1 capsule by mouth once daily. - losartan (COZAAR) 100 mg tablet Take 1 tablet by mouth once daily. - nystatin (MYCOSTATIN) cream Apply to affected area once daily as needed. - pravastatin (PRAVACHOL) 20 mg tablet Take 1 tablet by mouth once daily. - sertraline (ZOLOFT) 50 mg tablet TAKE 2 TABLETS ONE TIME DAILY - vibegron (GEMTESA) 75 mg tablet Take 1 tablet by mouth once daily. - acetaminophen (TYLENOL) 325 mg tablet Take 2 tablets by mouth every 6 hours as needed for pain. - carboxymethylcellulose sodium (REFRESH OPHTHALMIC) Use 1 Drop in eyes as needed. - triamcinolone (KENALOG) 0.025 % cream Apply to affected area twice daily. - vit C/E/Zn/coppr/lutein/zeax an (PRESERVISION AREDS 2 ORAL) Take 1 capsule by mouth twice daily. - calcium carbonate(CALTRATE 600 600 MG (1,500 MG) TAB) Take by mouth once daily. - aspirin(ECOTRIN LOW STRENGTH 81 MG TAB) Take one(1) tablet daily. Meds Comments as of 03/23/2024: Uses Biofreeze topical in the am on back Problem List As Of Date 09/22/2024 Noted Resolved Calcaneal Spur [M77.30] 07/30/2009 Sprain [...] stenosis [I34.2] 12/31/2023 Encounter Status:Closed by CITLALLI BROWN on 09/26/24 [facility] CNPKatty [facility] TERRIE SAMANO ([id number]) 1935 F Date Time Provider Department 09/19/24 [facility] During your visit today, we recorded the following information about you: Stacey Mueller, RN 09/19/2024 3:55 PM Signed Patient states she has 6 month follow up with Dr. Landon on 09/29/24 and asking if provider wishes to order any labs. If so, patient asking if lab orders can be faxed to [facility] at [phone]. Please call patient to update her if labs have been ordered and faxed. Thank you. Jordan Landon MD 09/22/2024 1:57 PM Signed Orders are already in for CMP, lipid and CBC to be done tomorrow; may fax these orders. MD Nishant Douglass M Robin, LIZ 09/22/2024 2:24 PM Signed Phoned patient and let her know, I faxed the lab orders to [facility] as she requested. Allergies As of Date: 09/19/2024 Noted Allergy Reaction COUGH SYRUP (GUAIFENESIN) 07/30/2009 2 - Rash IODINE 07/30/2009 2 - Rash Date Reviewed: 03/23/2024 Reviewed by: Lyn Quick MA - Fully Assessed Reason for Visit: Lab Orders [0928] Prescriptions as of 09/22/2024 - gabapentin (NEURONTIN) 300 mg capsule Take 1 capsule by mouth once daily for 180 days. - dilTIAZem CD (CARDIZEM CD) 120 mg 24 hr capsule Take 1 capsule by mouth once daily. - losartan (COZAAR) 100 mg tablet Take 1 tablet by mouth once daily. - nystatin (MYCOSTATIN) cream Apply to affected area once daily as needed. - pravastatin (PRAVACHOL) 20 mg tablet Take 1 tablet by mouth once daily. - sertraline (ZOLOFT) 50 mg tablet TAKE 2 TABLETS ONE TIME DAILY - vibegron (GEMTESA) 75 mg tablet Take 1 tablet by mouth once daily. - acetaminophen (TYLENOL) 325 mg tablet Take 2 tablets by mouth every 6 hours as needed for pain. - carboxymethylcellulose sodium (REFRESH OPHTHALMIC) Use 1 Drop in eyes as needed. - triamcinolone (KENALOG) 0.025 % cream Apply to affected area twice daily. - vit C/E/Zn/coppr/lutein/zeax an (PRESERVISION AREDS 2 ORAL) Take 1 capsule by mouth twice daily. - calcium carbonate(CALTRATE 600 600 MG (1,500 MG) TAB) Take by mouth once daily. - aspirin(ECOTRIN LOW STRENGTH 81 MG TAB) Take one(1) tablet daily. Meds Comments as of 03/23/2024: Uses Biofreeze topical in the am on back Problem List As Of Date 09/19/2024 Noted Resolved Calcaneal Spur [M77.30] 07/30/2009 Sprain [...] valve stenosis [I34.2] 12/31/2023 Encounter Status:Closed by Ezra DILLARD on 09/22/24 [facility] 09-14-2024 CNPN Telephone (FAMHannaWS) -------- TERRIE SAMANO ([id number]) 1935 F Date Time Provider Department 09/14/24 JRODAN LANDON [facility] During your visit today, we recorded the following information about you: Lyn Quick MA 09/14/2024 4:46 PM Addendum Office received fax from [facility] with fall report. Routed to PCP's desk to review. Lyn Quick MA Note text: Resident rang call light at 1;40 pm to alert staff she had fallen. Upon entering room, resident was found sitting on buttocks on kitchenette floor with legs outstretched in front of her, walker within reach. Resident stated she was trying to get something out of her bottom cupboard and could not reach it then lost her balance and fell backwards, striking the back of her head on the floor. No other injuries noted/reported. Vitals BP 128/72. P: 86. R - 18. T 97.6 (forehead). O2 - 93% RA. PERRLA. ROM equal per usual x 4 extremities. Small, raised area to back of head, declined offered ice pack. No other bumps/banks/discoloratio ns noted to skin. Was assisted to stand x 2 assist with FWB, ambulated around apartment with walker without pain, unsteady gait per usual. Neuro checks initiated. Encouraged to call for assistance if needing something she cannot reach to prevent further falls. AL director present in apartment, PCP, POA notified of fall. No needs/wants voiced, will continue to monitor. Author: Rachelle Mahmood Nursing, BATCH STILL OPERATOR. Jordan Landon MD 09/14/2024 5:03 PM Signed Noted Jordan Landon MD Allergies As of Date: 09/14/2024 Noted Allergy Reaction COUGH SYRUP (GUAIFENESIN) 07/30/2009 2 - Rash IODINE 07/30/2009 2 - Rash Date Reviewed: 03/23/2024 Reviewed by: Lyn Quick MA - Fully Assessed Reason for Visit: Electronic Communication [890] Cmt: [facility]. Prescriptions as of 10/06/2024 - ferrous sulfate 325 mg (65 mg iron) tablet Take 1 tablet by mouth once daily. - gabapentin (NEURONTIN) 300 mg capsule Take 1 capsule by mouth once daily for 180 days. - dilTIAZem CD (CARDIZEM CD) 120 mg 24 hr capsule Take 1 capsule by mouth once daily. - losartan (COZAAR) 100 mg tablet Take 1 tablet by mouth once daily. - nystatin (MYCOSTATIN) cream Apply to affected area once daily as needed. - pravastatin (PRAVACHOL) 20 mg tablet Take 1 tablet by mouth once daily. - sertraline (ZOLOFT) 50 mg tablet TAKE 2 TABLETS ONE TIME DAILY - vibegron (GEMTESA) 75 mg tablet Take 1 tablet by mouth once daily. - acetaminophen (TYLENOL) 325 mg tablet Take 2 tablets by mouth every 6 hours as needed for pain. - carboxymethylcellulose sodium (REFRESH OPHTHALMIC) Use 1 Drop in eyes as needed. - triamcinolone (KENALOG) 0.025 % cream Apply to affected area twice daily. - vit C/E/Zn/coppr/lutein/zeax an (PRESERVISION AREDS 2 ORAL) Take 1 capsule by mouth twice daily. - calcium carbonate(CALTRATE 600 600 MG (1,500 MG) TAB) Take by mouth once daily. - aspirin(ECOTRIN LOW STRENGTH 81 MG TAB) Take one(1) tablet daily. Meds Comments as of 03/23/2024: Uses Biofreeze topical in the am on back Problem List As Of Date 09/14/2024 Noted Resolved Calcaneal Spur [M77.30] 07/30/2009 Sprain [...] stenosis [I34.2] 12/31/2023 Encounter Status:Closed by LYN QUICK on 10/06/24 [facility] 08-17-2024 [facility] Telephone (FAMPWS) -------- TERRIE SAMANO ([id number]) 1935 F Date Time Provider Department 08/17/24 JORDAN LANDON FAMPWS During your visit today, we recorded the following information about you: Lyn Quick MA 08/17/2024 11:47 AM Signed Office received fax from [facility] in regards to pt on 08/14/24. Routed to PCP to review. Once reviewed fax back to [phone]. Pt update: Notification of a fall this day. No injuries noted. Vitals WNL. Went to sit in a chair, missed the chair, landing on her bottom. Did not hit head. Jordan Landon MD 08/17/2024 2:56 PM Signed Noted Jordan Landon MD Allergies As of Date: 08/17/2024 Noted Allergy Reaction COUGH SYRUP (GUAIFENESIN) 07/30/2009 2 - Rash IODINE 07/30/2009 2 - Rash Date Reviewed: 03/23/2024 Reviewed by: Lyn Quick MA - Fully Assessed Reason for Visit: Electronic Communication [330] Cmt: [facility]. Prescriptions as of 08/17/2024 - dilTIAZem CD (CARDIZEM CD) 120 mg 24 hr capsule Take 1 capsule by mouth once daily. - losartan (COZAAR) [...] to affected area twice daily. - vit C/E/Zn/coppr/lutein/zeax an (PRESERVISION AREDS 2 ORAL) Take 1 capsule by mouth twice daily. - calcium carbonate(CALTRATE 600 600 MG (1,500 MG) TAB) Take by mouth once daily. - aspirin(ECOTRIN LOW STRENGTH 81 MG TAB) Take one(1) tablet daily. Meds Comments as of 03/23/2024: Uses Biofreeze topical in the am on back Problem List As Of Date 08/17/2024 Noted Resolved Calcaneal Spur [M77.30] 07/30/2009 Sprain [...] valve stenosis [I34.2] 12/31/2023 Encounter Status:Closed by JORDAN LANDON on 08/17/24 Normal [facility] Brain/Head without Contrasto n 08-15-2024 Brain/Head without Contrast [facility] [address] [place] [address] [place] [address] Brain/Head without Contrast MR#: [id number] Acct: [id number] Name: TERRIE SAMANO Rep #: [id number] : 1935 F 89 From: Juan ledesma MD PCP: Dr. Jordan Landon MD Status: PRE ER Study: Brain/Head without Contrast Date of Exam: 07/26 12/18 Exam# [id number] Ordering Dr: Simone Olvera DO [id number] STUDY: CT BRAIN WITHOUT CONTRAST REASON FOR EXAM: Female, 89 years old. trauma RADIATION DOSAGE (If Supplied By Facility): CTDIvol = ( 44.99 ) mGy, DLP = ( 829.85 ) mGycm TECHNIQUE: Transaxial CT imaging of the brain was performed without administration of intravenous contrast material. Individualized dose optimization techniques were used for this CT. COMPARISON: 01/03/2023 FINDINGS: Normal soft tissue structures. Normal calvarium. There is mild cerebral atrophy with widening of the extra-axial spaces and ventricular dilatation. There are areas of decreased attenuation within the white matter tracts of the supratentorial brain, consistent with microvascular disease changes. Normal basal ganglia and thalami. Normal brainstem. There is mild cerebellar atrophy. There is no intracranial hemorrhage. There are no findings of an acute ischemic infarction. 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 1.7 cm mucous retention cyst of the right sphenoid sinus. Stable postsurgical changes of the left globe. CT/Brain/Head without Contrast IMPRESSION: Chronic involutional changes of the brain. No change or acute abnormality. Electronically Signed: Juan Pisano MD at 16:16 EDT , CC: Dr. Simone Olvera DO; Dr. Jordan Landon MD Bottled Beverage Inspector: Signed Normal [facility] Emergency Department Summary on 08-15-2024 Emergency Department Summary [facility] Medical Records Department [address] [place] [address] Emergency Department Summary 08/15/24 MR#: [id number] Acct: [id number] Name: TERRIE SAMANO Rep #: [id number] : 1935 89 From: Simone Olvera DO PCP: Dr. Jordan Landon MD Status:REG ER Location: ED HPI HPI - Fall History of Present Illness Chief Complaint: Fall Informant: patient, EMS and SNF Narrative Narrative: 89-year-old female presenting to the emergency room with fall from retirement facility. Patient struck her head and causing laceration to the left lateral periorbital area. Also skin tears to the left arm. No reported loss of consciousness. Patient is on aspirin therapy but not anticoagulated from the med list that I have received. She is a DNR comfort care. She is from [facility]. The patient states that she went there because of frequent falls at home. [facility] Medical History Obesity Frequent falls Anxiety and depression Chronic anemia Hyperlipidemia Osteoarthritis HTN (hypertension) Fibromyalgia Spinal stenosis Macular degeneration Urine incontinence Fall Home Medications ???Medication ???Instructions ???Recorded ???Last Taken ???Type aspirin 81 mg tablet,delayed 81 mg PO DAILY@0800 01/15/17 Unknown History release calcium 600 mg (as 1 ea PO DAILY 01/15/17 Unknown History carbonate)-vitamin D3 20 mcg (800 unit) tablet (Caltrate with Vitamin D3) gabapentin 100 mg capsule 300 mg PO DAILY neuropathy 01/15/17 06/13/18 06:00 History (Neurontin) glexcmncmaq-jbgrenkye-mf t C-Mn 500 2 ea PO DAILY 01/15/17 Unknown History mg-400 mg capsule meloxicam 15 mg tablet (Mobic) 15 mg PO DAILY 01/15/17 Unknown History dqakldvq-ypbh-aasz 8 mg-folic 400 1 ea PO DAILY 01/15/17 Unknown History mcg-K 50 mcg-lutein 300 mcg tablet (Centrum Silver Women) pravastatin 20 mg tablet 20 mg PO QHS 01/15/17 Unknown History sertraline 50 mg tablet 100 mg PO DAILY 01/15/17 Unknown History vit C 250 mg-vit E 90 mg-zinc 40 2 ea PO DAILY 10/14/17 Unknown History mg-copper 1 tq-lpppse-gwlvys capsule (PreserVision AREDS-2) docusate sodium 100 mg capsule 100 mg PO BID #30 caps 06/16/18 Unknown Rx magnesium hydroxide 400 mg/5 mL 30 ml PO DAILY PRN PRN 06/16/18 Unknown Rx oral suspension Constipation ##14 diltiazem HCl 120 mg 120 mg PO DAILY 11/20/21 Unknown History capsule,extended release 24 hr losartan 100 mg tablet 100 mg PO DAILY 01/04/23 Unknown History nystatin 100,000 unit/gram topical 1 unit topical DAILY 01/04/23 Unknown History cream oxybutynin chloride 10 mg 10 mg PO DAILY 01/04/23 Unknown History tablet,extended release 24 hr Allergy/AdvReac Type Severity Reaction Status Date / Time iodine Allergy Rash Verified 08/15/24 14:35 COUGH SYRUP W/IODINE Allergy Rash Uncoded 01/03/23 22:16 Family History Mother Colon cancer Maternal family history of colon cancer with metastatic disease to the liver Father Prostate cancer Paternal family history of prostate cancer with metastatic disease to the bones. Sister Colon cancer Breast cancer Surgical History Status post hip surgery S/P carpal tunnel release S/P cataract extraction History of eye surgery History of hysterectomy History of appendectomy History of tonsillectomy and adenoidectomy Social History housing: assisted living facility Smoking Status: Never smoker alcohol intake: never substance use type: does not use ROS ROS ED Constitutional Constitutional ED: Denies chills, fever(s) or weight loss Eyes Eyes: Denies change in vision or diplopia ENT ENT ED: Denies ear pain, rhinorrhea or sore throat Cardiovascular Cardiovascular: Denies chest pain, orthopnea, palpitations or racing heartbeat Respiratory/Chest Respiratory/Chest: Denies cough, dyspnea or orthopnea Gastrointestinal Gastrointestinal: Denies abdominal pain, diarrhea, nausea or vomiting Genitourinary Genitourinary ED: Denies dysuria, hematuria or urinary frequency Musculoskeletal Musculoskeletal: Denies arthralgias or myalgias Integumentary Reports other Details: Skin tears left elbow left proximal arm laceration left lateral periorbital region ; Denies abscess or rash Neurologic Neurologic: Denies headache(s) or weakness Psychiatric Psychiatric: Denies anxiety, depression, suicidal ideation or suicidal thoughts Endocrine Endocrinology: Denies polydipsia, polyphagia or polyuria Allergic/Immunologic Allergic/Immunologic ED: Denies mouth swelling, tongue swelling or urticaria EXAM Physical Exam Const Vital Si (more content not included)... [facility] 06-19-2024 [facility] Telephone (FAMPWS) -------- TERRIE SAMANO ([id number]) 1935 F Date Time Provider Department 06/19/24 JORDAN LANDON [facility] During your visit today, we recorded the following information about you: Lyn Quick MA 06/19/2024 3:53 PM Signed Office received fax from [facility] regarding fall that occurred on 06/18/24 at 4:45 pm. Please review fax. Will fax back PCP's response to [phone]. ALVARADO Kaur Mark D, MD 06/20/2024 9:23 AM Signed Noted MD Reynold Douglass Rilee, MA 06/20/2024 11:03 AM Signed Form faxed back to information below. Lyn Quick MA Allergies As of Date: 06/19/2024 Noted Allergy Reaction COUGH SYRUP (GUAIFENESIN) 07/30/2009 2 - Rash IODINE 07/30/2009 2 - Rash Date Reviewed: 03/23/2024 Reviewed by: Quick, Lyn, MA - Fully Assessed Reason for Visit: Electronic Communication [890] Cmt: [facility] Prescriptions as of 06/20/2024 - losartan (COZAAR) [...] to affected area twice daily. - vit C/E/Zn/coppr/lutein/zeax an (PRESERVISION AREDS 2 ORAL) Take 1 capsule [...] stenosis [I34.2] 12/31/2023 Encounter Status:Closed by LYN QUICK on 06/20/24 Normal [facility] Shoulder min 2 Viewson 06-16 Shoulder min 2 Views [facility] [address] [place] [address] Shoulder min 2 Views MR#: [id number] Acct: [id number] Name: TERRIE SAMANO Rep #: [id number] : 1935 F 89 From: Luigi Stevens MD PCP: Dr. Jordan Landon MD Status: DEP AMB Study: Shoulder min 2 Views Date of Exam: 06/16/24 Exam# [id number] Ordering Dr: Alison Sanchez [id number] STUDY: X-RAY - LEFT SHOULDER REASON FOR EXAM: Female, 89 years old. Left shoulder pain. Recent fall. TECHNIQUE: 3 view(s) of the shoulder. COMPARISON: July 22, 2023 FINDINGS: Osteopenia. Severe arthrosis of the glenohumeral joint with near complete loss of articular cartilage, subchondral cyst formation, subchondral sclerosis and small osteophytes. Mild arthrosis of the AC joint. Normal acromion. Sclerosis and cystic changes of the humeral head. Normal soft tissues. Normal visualized pulmonary apex. RAD/Shoulder min 2 Views IMPRESSION: Osteopenia with severe osteoarthrosis of the glenohumeral joint, relatively unchanged from prior study and mild arthrosis of the AC joint. No acute abnormality or erosive changes. Electronically Signed: Luigi Stevens MD at 14:58 EDT , CC: Alison Sanchez; Dr. Jordan Landon MD Bottled Beverage Inspector: Signed [facility] 06-08-2024 CNPN Telephone (FAMPWS) -------- TERRIE SAMANO ([id number]) 1935 F Date Time Provider Department 06/08/24 [facility] During your visit today, we recorded the following information about you: Lyn Quick MA 06/08/2024 3:40 PM Signed Office received fax from [facility] on 06/07/24 regarding pt safety. Routed to PCP to review and note on. Once complete fax back to [facility] at [phone]. Lyn Quick MA Resident rang call light at 0815 [...] closed with 2 steri strips. No other bumps/banks/discoloratio ns noted to skin. Ambulates about room with walker without c/o pain or difficulty. Ice pack applied to head, neuro check initiated. All notified of fall. Call pendent on person and working, will continue to monitor. BATCH STILL OPERATOR - Rachelle Mahmood. Lyn Quick MA 06/08/2024 4:22 PM Signed PCP reviewed and noted, faxed back to info below. Lyn Quick MA Allergies As of Date: 06/08/2024 Noted Allergy Reaction COUGH SYRUP (GUAIFENESIN) 07/30/2009 2 - Rash IODINE 07/30/2009 2 - Rash Date Reviewed: 03/23/2024 Reviewed by: Lyn Quick MA - Fully Assessed Reason for Visit: Electronic Communication [280] Cmt: [facility] re: fall Prescriptions as [...] to affected area twice daily. - vit C/E/Zn/coppr/lutein/zeax an (PRESERVISION AREDS 2 ORAL) Take 1 capsule [...] stenosis [I34.2] 12/31/2023 Encounter Status:Closed by LYN QUICK on 06/08/24 Normal [facility] Chris 05-02-2024 CNPN Telephone (FAMPWS) -------- TERRIE SAMANO ([id number]) 1935 F Date Time Provider Department 05/02/24 JORDAN LANDON FAMPWS During your visit today, we recorded the following information about you: Lyn Quick MA 05/02/2024 1:36 PM Signed Office received fax from [facility] today. Routed to PCP to review. Once reviewed fax back to [facility] at [phone]. Lyn Quick MA Note text: Resident noted to have [...] further instruction, will continue to monitor. Jordan Landon MD 05/02/2024 3:55 PM Signed Noted; continue to monitor MD Reynold Douglass Rilee, MA 05/02/2024 4:22 PM Signed Paperwork faxed back to [facility] at number below. Lyn Quick MA Allergies As of Date: 05/02/2024 Noted Allergy Reaction COUGH SYRUP (GUAIFENESIN) 07/30/2009 2 - Rash IODINE 07/30/2009 2 - Rash Date Reviewed: 03/23/2024 Reviewed by: Lyn Quick MA - Fully Assessed Reason for Visit: [...] to affected area twice daily. - vit C/E/Zn/coppr/lutein/zeax an (PRESERVISION AREDS 2 ORAL) Take 1 capsule [...] stenosis [I34.2] 12/31/2023 Encounter Status:Closed by LYN QUICK on 05/02/24 [facility] 05-01-2024 CNPN Telephone (FAMPWS) -------- JAZMYNETERRIE ([id number]) 1935 F Date Time Provider Department 05/01/[facility] During your visit today, we recorded the following information about you: Lyn Quick MA 05/01/2024 12:19 PM Signed Office received fax from [facility] regarding pt fall. Fax back to [facility] at [phone]. Lyn Quick MA 04/30/24 note text: Another resident alerted [...] per usual. Neuro-checks initiated. PCP and AL unix manager notified, message left with sister. Savannah Guzman Nursing - RN Lyn Quick MA 05/01/2024 7:22 PM Signed Reviewed and noted by PCP. Faxed back to information below. Lyn Quick MA Allergies As of Date: 05/01/2024 Noted Allergy Reaction COUGH SYRUP (GUAIFENESIN) 07/30/2009 2 - Rash IODINE 07/30/2009 2 - Rash Date Reviewed: 03/23/2024 Reviewed by: Lyn Quick MA - Fully Assessed Reason for Visit: Electronic Communication [660] Cmt: [facility] Prescriptions as of 05/01/2024 - losartan (COZAAR) [...] to affected area twice daily. - vit C/E/Zn/coppr/lutein/zeax an (PRESERVISION AREDS 2 ORAL) Take 1 capsule [...] stenosis [I34.2] 12/31/2023 Encounter Status:Closed by LYN QUICK on 05/01/24 Normal [facility] Absolute lymphocyte countOrd ered By: Jordan Landon on 09-10-2023 Lymphocytes Auto (Unsp spec) [#/Vol] 1.53 10*3/uL 0.83-4.51 [facility] Basophil percentageOrdered B y: Jordan Landon on 09-10-2023 Basophils/100 WBC (Bld) 0.9 % 0-1 W [facility] Bilirubin [Mass/Vol] 0.30 mg/dL 0.20-1.00 [facility] Comment on above: For patients on eltr ombopag therapy, use of Dimension [place] TBIL is not recommended. Chloride [Moles/Vol] 111 mmol/L 98-107 [facility] Cholesterol [Mass/Vol] 146 mg/dL <200 [facility] Comment on above: <200 mg/dL Desirable 200-240 mg/dL Borderline >240 mg/dL High Risk Eosinophils/100 WBC (Bld) 4.6 % 0-5 [facility] Glucose [Mass/Vol] 106 mg/dL 74-106 [facility] Comment on above: Fasting Glucose resu lt from 100 to 125 mg/dL suggests IMPAIRED HOMEOSTASIS per A.D.A. criteria. Neutrophils (Bld) [#/Vol] 5.8 10*3/uL 2.0-7.7 [facility] Neutrophils/100 WBC (Bld) 68.3 % 47-70 [facility] Potassium [Moles/Vol] 4.4 mmol/L 3.5-5.1 [facility] Protein [Mass/Vol] 7.1 g/dL 6.4-8.2 [facility] Sodium [Moles/Vol] 141 mmol/L 136-145 [facility] Triglyceride [Mass/Vol] 60 mg/dL <199 [facility] Comment on above: The drugs N-Acetylcy steine and Metamizole may falsely depress this assay.Serum Triglycerides Reference Interval Normal <150 mg/dL Borderline high 150 - 199 mg/dL High 200 - 499 mg/dL Very High > or = 500 mg/dL WBC (Bld) [#/Vol] 8.5 10*3/uL 4.4-11.0 [facility] Blood erythrocytes count (nu mber/volume)Ordered By: Jordan Landon on 09-10-2023 RBC (Bld) [#/Vol] 3.71 10*6/uL 4.2-5.4 [facility] Blood hemoglobin measurement (mass/volume)Ordered By: Jordan Landon on 09-10-2023 Hemoglobin (Bld) [Mass/Vol] 11.5 g/dL 12.0-15.0 [facility] Blood lymphocytes/100 leukoc ytesOrdered By: Jordan Landon on 09-10-2023 Lymphocytes/100 WBC (Bld) 18.0 % 19-41 [facility] Blood monocytes/100 leukocyt esOrdered By: Jordan Landon on 09-10-2023 Monocytes/100 WBC (Bld) 7.8 % 0-10 [facility] Blood platelet mean volumeOr dered By: Jordan Landon on 09-10-2023 Platelet mean volume (Bld) [Entitic vol] 10.5 fL 6.2-12.0 [facility] Determination of erythrocyte mean corpuscular volume (MCV)Ordered By: Jordan Landon on 09-10-2023 MCV (RBC) [Entitic vol] 98.7 fL 81-99 [facility] Hematocrit Auto (Bld) [Volum e fraction]Ordered By: Jordan Landon on 09-10-2023 Hematocrit (Bld) [Volume fraction] 36.6 % 37-47 [facility] - Chemistry and C hemistry - challengeOrdered By: Jordan Landon on 09-10-2023 ALP [Catalytic activity/Vol] 101 U/L 45-117 [facility] ALT [Catalytic activity/Vol] 28 U/L 13-56 [facility] CO2 [Moles/Vol] 26.0 mmol/L 21.0-32.0 [facility] Globulin (S) [Mass/Vol] 3.9 g/dL 2.2-4.2 [facility] Urea nitrogen/Creatinine [Mass ratio] 42.4 mg/mg 10-20 [facility] - Hematology and Cell countsOrdered By: Jordan Landon on 09-10-2023 Erythrocyte distribution width (RBC) [Entitic vol] 50.6 fL 35.1-43.9 [facility] Erythrocyte distribution width (RBC) [Ratio] 13.9 % 11.6-14.6 [facility] Immature granulocytes/100 WBC (Bld) 0.400 % 0.0-0.9 [facility] Comment on above: IG% - Immature Granu locytes (promyelocytes, myelocytes and metamyelocytes) > 1% indicates that a LEFT SHIFT is Present. MCH (RBC) [Entitic mass] 31.0 pg 27.0-32.0 [facility] Nucleated RBC/100 WBC (Bld) [Ratio] 0 % 0-5 [facility] MCHC Auto (RBC) [Mass/Vol]Or dered By: Jordan Landon on 09-10-2023 MCHC (RBC) [Mass/Vol] 31.4 g/dL 32-36 [facility] No Panel InformationOrdered By: Jordan Landon on 09-10-2023 Estimated GFR (MDRD) Amer 93 mL/min >60 [facility] Comment on above: GFR Calc Estimated GFR (MDRD) Non-Af Amer 77 mL/min >60 [facility] Comment on above: Non- GFR Calc Platelets bldOrdered By: Ashlyn Landon on 09-10-2023 Platelets (Bld) [#/Vol] 247 10*3/uL 150-450 [facility] Serum or plasma albumin markell urement (mass/volume)Ordered By: Jordan Landon on 09-10-2023 Albumin [Mass/Vol] 3.2 g/dL 3.2-5.0 [facility] Serum or plasma albumin/glob ulin mass ratioOrdered By: Jordan Landon on 09-10-2023 Albumin/Globulin [Mass ratio] 0.8 {ratio} 0.9-2.4 [facility] Serum or plasma calcium markell urement (mass/volume)Ordered By: Jordan Landon on 09-10-2023 Calcium [Mass/Vol] 10.4 mg/dL 8.5-10.1 [facility] Serum or plasma cholesterol in HDL measurement (mass/volume)Ordered By: Jordan Landon on 09-10-2023 Cholesterol in HDL [Mass/Vol] 64 mg/dL >40 [facility] Comment on above: The drugs N-Acetylcy steine and Metamizole may falsely depress this assay. Reference Range HDL <40 mg/dL Low HDL Cholesterol HDL >or= 60 mg/dL High HDL Cholesterol Serum or plasma cholesterol in VLDL measurement (mass/volume)Ordered By: Jordan Landon on 09-10-2023 Cholesterol in VLDL [Mass/Vol] 12 mg/dL 5-40 [facility] Serum or plasma creatinine m easurement (mass/volume)Ordered By: Jordan Landon on 09-10-2023 Creatinine [Mass/Vol] 0.76 mg/dL 0.55-1.02 [facility] Comment on above: The validity of the calculated GFR & GFRAA in patients over 70 years has not been determined. Clinical correlation is essential. Serum or plasma low density lipoprotein (LDL) cholesterol measurement (mass/volume)Ordered By: Jordan Landon on 09-10-2023 Cholesterol in LDL [Mass/Vol] 70 mg/dL 0-130 [facility] Serum or plasma urea nitroge n measurement (mass/volume)Ordered By: Jordan Landon on 09-10-2023 Urea nitrogen [Mass/Vol] 32 mg/dL 7-18 [facility] Thin prep Papanicolaou smear with manual screeningOrdered By: Jordan Landon on 09-10-2023 Thin prep Papanicolaou smear with manual screening 22 U/L 15-37 [facility] Thin prep Papanicolaou smear with manual screening 4 5-15 [facility] Absolute lymphocyte countOrd ered By: Dr. Castillo on 01-04-2023 Lymphocytes Auto (Unsp spec) [#/Vol] 1.64 10*3/uL 0.83-4.51 [facility] Basophil percentageOrdered B y: Dr. Castillo on 01-04-2023 Basophils/100 WBC (Bld) 1.0 % 0-1 [facility] Bilirubin [Mass/Vol] 0.50 mg/dL 0.20-1.00 [facility] Comment on above: For patients on eltr ombopag therapy, use of Dimension [place] TBIL is not recommended. Chloride [Moles/Vol] 111 mmol/L 98-107 [facility] Eosinophils/100 WBC (Bld) 3.0 % 0-5 [facility] Glucose [Mass/Vol] 108 mg/dL 74-106 [facility] Comment on above: Fasting Glucose resu lt from 100 to 125 mg/dL suggests IMPAIRED HOMEOSTASIS per A.D.A. criteria. Neutrophils (Bld) [#/Vol] 5.0 10*3/uL 2.0-7.7 [facility] Neutrophils/100 WBC (Bld) 65.6 % 47-70 [facility] Potassium [Moles/Vol] 3.9 mmol/L 3.5-5.1 [facility] Protein [Mass/Vol] 7.0 g/dL 6.4-8.2 [facility] Sodium [Moles/Vol] 143 mmol/L 136-145 [facility] WBC (Bld) [#/Vol] 7.7 10*3/uL 4.4-11.0 [facility] Blood erythrocytes count (nu mber/volume)Ordered By: Dr. Castillo on 01-04-2023 RBC (Bld) [#/Vol] 3.92 10*6/uL 4.2-5.4 [facility] Blood hemoglobin measurement (mass/volume)Ordered By: Dr. Castillo on 01-04-2023 Hemoglobin (Bld) [Mass/Vol] 11.5 g/dL 12.0-15.0 [facility] Blood lymphocytes/100 leukoc ytesOrdered By: Dr. Castillo on 01-04-2023 Lymphocytes/100 WBC (Bld) 21.4 % 19-41 [facility] Blood monocytes/100 leukocyt esOrdered By: Dr. Castillo on 01-04-2023 Monocytes/100 WBC (Bld) 8.7 % 0-10 [facility] Blood platelet mean volumeOr dered By: Dr. Castillo on 01-04-2023 Platelet mean volume (Bld) [Entitic vol] 9.9 fL 6.2-12.0 [facility] COVID-19 virus antigen assay Ordered By: Dr. Castillo on 01-04-2023 SARS-CoV-2 (COVID-19) Ag IA.rapid Ql (Resp) Not detected Not Detect [facility] Comment on above: Normal Reference Ran ge: Not DetectedMethod:(RT-PCR) real-time reverse transcriptase PCRLuminex MILKA Instrument*The Food and Drug Administration (FDA) has issued an Emergency Use Authorization (EAU) for the MILKA SARS-CoV-2 Assay for the rapid detection of the virus that causes COVID-19. This test has been validated, but the FDAs independent review of this validation is pending.*Negative results do not preclude infection and should not be used as the sole basis for treatment or patient management. Optimum specimen types and timing for peak viral levels during infections caused by SARS-CoV-2 have not been determined. Collection of multiple specimens from the same patient may be necessary to detect the virus. The possibility of a false negative result should be considered if the patient has clinical presentation or has had recent exposure. COVID-19 virus antigen assay Ordered By: Dr. Montano on 01-04-2023 SARS-CoV-2 (COVID-19) Ag IA.rapid Ql (Resp) [facility] Determination of erythrocyte mean corpuscular volume (MCV)Ordered By: Dr. Castillo on 01-04-2023 MCV (RBC) [Entitic vol] 93.9 fL 81-99 [facility] Hematocrit Auto (Bld) [Volum e fraction]Ordered By: Dr. Castillo on 01-04-2023 Hematocrit (Bld) [Volume fraction] 36.8 % 37-47 [facility] - Chemistry and C hemistry - challengeOrdered By: Dr. Castillo on 01-04-2023 ALP [Catalytic activity/Vol] 89 U/L 45-117 [facility] ALT [Catalytic activity/Vol] 23 U/L 13-56 [facility] CO2 [Moles/Vol] 26.0 mmol/L 21.0-32.0 [facility] Globulin (S) [Mass/Vol] 3.8 g/dL 2.2-4.2 [facility] Urea nitrogen/Creatinine [Mass ratio] 38.8 mg/mg 10-20 [facility] - Hematology and Cell countsOrdered By: Dr. Castillo on 01-04-2023 Erythrocyte distribution width (RBC) [Entitic vol] 49.2 fL 35.1-43.9 [facility] Erythrocyte distribution width (RBC) [Ratio] 14.4 % 11.6-14.6 [facility] Immature granulocytes/100 WBC (Bld) 0.300 % 0.0-0.9 [facility] Comment on above: IG% - Immature Granu locytes (promyelocytes, myelocytes and metamyelocytes) > 1% indicates that a LEFT SHIFT is Present. MCH (RBC) [Entitic mass] 29.3 pg 27.0-32.0 [facility] Nucleated RBC/100 WBC (Bld) [Ratio] 0 % 0-5 [facility] - Microbiology an d Antimicrobial susceptibilityOrdered By: Dr. Castillo on 01-04-2023 Respiratory pathogens DNA and RNA 12b panel SERINA+probe (Unsp spec) [facility] MCHC Auto (RBC) [Mass/Vol]Or dered By: Dr. Castillo on 01-04-2023 MCHC (RBC) [Mass/Vol] 31.3 g/dL 32-36 [facility] Comment on above: Delta: 33.2 on 01/03 No Panel InformationOrdered By: Dr. Castillo on 01-04-2023 Estimated Creatinine Clearance Calc 29.54 ml/min [facility] Estimated GFR (MDRD) Amer 118 mL/min >60 [facility] Comment on above: GFR Calc Estimated GFR (MDRD) Non-Af Amer 97 mL/min >60 [facility] Comment on above: Non- GFR Calc Platelets bldOrdered By: Dr. Castillo on 01-04-2023 Platelets (Bld) [#/Vol] 243 10*3/uL 150-450 [facility] Serum or plasma albumin markell urement (mass/volume)Ordered By: Dr. Castillo on 01-04-2023 Albumin [Mass/Vol] 3.2 g/dL 3.2-5.0 [facility] Serum or plasma albumin/glob ulin mass ratioOrdered By: Dr. Castillo on 01-04-2023 Albumin/Globulin [Mass ratio] 0.8 {ratio} 0.9-2.4 [facility] Serum or plasma calcium markell urement (mass/volume)Ordered By: Dr. Castillo on 01-04-2023 Calcium [Mass/Vol] 9.8 mg/dL 8.5-10.1 [facility] Serum or plasma creatinine m easurement (mass/volume)Ordered By: Dr. Castillo on 01-04-2023 Creatinine [Mass/Vol] 0.62 mg/dL 0.55-1.02 [facility] Comment on above: The validity of the calculated GFR & GFRAA in patients over 70 years has not been determined. Clinical correlation is essential. Serum or plasma urea nitroge n measurement (mass/volume)Ordered By: Dr. Castillo on 01-04-2023 Urea nitrogen [Mass/Vol] 24 mg/dL 7-18 [facility] Serum procalcitonin measurem entOrdered By: Dr. Castillo on 01-04-2023 Procalcitonin [Mass/Vol] ng/mL 0.00-0.09 [facility] Comment on above: A procalcitonin (PCT ) level above 2.0 ng/mL on the first day of ICU admission is associated with a high risk for progression to severe sepsis and/or septic shock. A PCT level below 0.5 ng/mL on the first day of ICU admission is associated with a low risk for progression to severe and/or septic shock. Note: Concentrations <0.5 ng/mL do not exclude an infection on account of localized infections (without systemic signs) which can be associated with such low concentrations, or a systemic infection in its initial stages (<6 hours). Furthermore, increased procalcitonin can occur without infection. PCT concentrations between 0.5 and 2.0 ng/mL should be interpreted taking into account the patient's history. It is recommended to retest PCT within 6-24 hours if any concentrations <2 ng/mL are obtained. Thin prep Papanicolaou smear with manual screeningOrdered By: Dr. Castillo on 01-04-2023 Thin prep Papanicolaou smear with manual screening 25 U/L 15-37 [facility] Thin prep Papanicolaou smear with manual screening 6 5-15 [facility] Absolute lymphocyte countOrd ered By: Dr. Montano on 01-03-2023 Lymphocytes Auto (Unsp spec) [#/Vol] 1.58 10*3/uL 0.83-4.51 [facility] Basophil percentageOrdered B y: Dr. Montano on 01-03-2023 Basophils/100 WBC (Bld) 1.0 % 0-1 [facility] Chloride [Moles/Vol] 108 mmol/L 98-107 [facility] Eosinophils/100 WBC (Bld) 3.1 % 0-5 [facility] Glucose [Mass/Vol] 115 mg/dL 74-106 [facility] Comment on above: Fasting Glucose resu lt from 100 to 125 mg/dL suggests IMPAIRED HOMEOSTASIS per A.D.A. criteria. Neutrophils (Bld) [#/Vol] 5.1 10*3/uL 2.0-7.7 [facility] Neutrophils/100 WBC (Bld) 67.2 % 47-70 [facility] Potassium [Moles/Vol] 4.4 mmol/L 3.5-5.1 [facility] Sodium [Moles/Vol] 142 mmol/L 136-145 [facility] WBC (Bld) [#/Vol] 7.6 10*3/uL 4.4-11.0 [facility] Blood erythrocytes count (nu mber/volume)Ordered By: Dr. Montano on 01-03-2023 RBC (Bld) [#/Vol] 3.89 10*6/uL 4.2-5.4 [facility] Blood hemoglobin measurement (mass/volume)Ordered By: Dr. Montano on 01-03-2023 Hemoglobin (Bld) [Mass/Vol] 12.5 g/dL 12.0-15.0 [facility] Blood lymphocytes/100 leukoc ytesOrdered By: Dr. Montano on 01-03-2023 Lymphocytes/100 WBC (Bld) 20.7 % 19-41 [facility] Blood monocytes/100 leukocyt esOrdered By: Dr. Montano on 01-03-2023 Monocytes/100 WBC (Bld) 7.9 % 0-10 [facility] Blood platelet mean volumeOr dered By: Dr. Montano on 01-03-2023 Platelet mean volume (Bld) [Entitic vol] 9.8 fL 6.2-12.0 [facility] Determination of erythrocyte mean corpuscular volume (MCV)Ordered By: Dr. Montano on 01-03-2023 MCV (RBC) [Entitic vol] 96.7 fL 81-99 [facility] Hematocrit Auto (Bld) [Volum e fraction]Ordered By: Dr. Montano on 01-03-2023 Hematocrit (Bld) [Volume fraction] 37.6 % 37-47 [facility] - Chemistry and C hemistry - challengeOrdered By: Dr. Montano on 01-03-2023 CO2 [Moles/Vol] 27.0 mmol/L 21.0-32.0 [facility] Urea nitrogen/Creatinine [Mass ratio] 40.9 mg/mg 10-20 [facility] - Hematology and Cell countsOrdered By: Dr. Montano on 01-03-2023 Erythrocyte distribution width (RBC) [Entitic vol] 48.8 fL 35.1-43.9 [facility] Erythrocyte distribution width (RBC) [Ratio] 14.5 % 11.6-14.6 [facility] Immature granulocytes/100 WBC (Bld) 0.100 % 0.0-0.9 [facility] Comment on above: IG% - Immature Granu locytes (promyelocytes, myelocytes and metamyelocytes) > 1% indicates that a LEFT SHIFT is Present. MCH (RBC) [Entitic mass] 32.1 pg 27.0-32.0 [facility] Nucleated RBC/100 WBC (Bld) [Ratio] 0 % 0-5 [facility] MCHC Auto (RBC) [Mass/Vol]Or dered By: Dr. Montano on 01-03-2023 MCHC (RBC) [Mass/Vol] 33.2 g/dL 32-36 [facility] No Panel InformationOrdered By: Dr. Montano on 01-03-2023 Estimated Creatinine Clearance Calc 29.54 ml/min [facility] Estimated GFR (MDRD) Amer 93 mL/min >60 [facility] Comment on above: GFR Calc Estimated GFR (MDRD) Non-Af Amer 77 mL/min >60 [facility] Comment on above: Non- GFR Calc Platelets bldOrdered By: Dr. Montano on 01-03-2023 Platelets (Bld) [#/Vol] 266 10*3/uL 150-450 [facility] Serum or plasma calcium markell urement (mass/volume)Ordered By: Dr. Montano on 01-03-2023 Calcium [Mass/Vol] 10.3 mg/dL 8.5-10.1 [facility] Serum or plasma creatinine m easurement (mass/volume)Ordered By: Dr. Montano on 01-03-2023 Creatinine [Mass/Vol] 0.76 mg/dL 0.55-1.02 [facility] Comment on above: The validity of the calculated GFR & GFRAA in patients over 70 years has not been determined. Clinical correlation is essential. Serum or plasma urea nitroge n measurement (mass/volume)Ordered By: Dr. Montano on 01-03-2023 Urea nitrogen [Mass/Vol] 31 mg/dL 7-18 [facility] Thin prep Papanicolaou smear with manual screeningOrdered By: Dr. Montano on 01-03-2023 Thin prep Papanicolaou smear with manual screening 7 5-15 [facility] CR Wrist Complete 3 Views [place] 05-06-2018 CR Wrist Complete 3 Views Left Patient Name: TERRIE SAMANO Diagnostic Radiology Exam Date/Time 05/05/2018 12:52:22 EDT Exam CR Wrist Complete 3 Views Left Ordering Physician ROLANDO RENEE NATALIE M Accession Number [id number] CPT4 Codes 86068 () Reason For Exam PAIN Report CLINICAL [...] Report Dictated on Final Dictating Physician: MD ALVAREZ YUN ROBERT Signed Date and Time: 05/06/2018 9:29 am Signed by: MD ALVAREZ YUN ROBERT Transcribed Date and Time: 05/06/2018 9:30 Normal [facility] CR Wrist Complete 3 Views [place] 03-10-2018 CR Wrist Complete 3 Views Left Patient Name: TERRIE SAMANO Diagnostic Radiology Exam Date/Time 03/10/2018 09:05:00 EDT Exam CR Wrist Complete 3 Views Left Ordering Physician ROLANDO RENEE, HALIE Munguia Accession Number [id number] CPT4 Codes 15422 () Reason For Exam PAIN Report Clinical: [...] osteoporosis. Findings discussed over the telephone with Halie Renee PA-C, at 10:38 AM 03/10/2018. Report Dictated on Workstation: [id number] Final Dictating Physician: MD WARE SHARDUL Signed Date and Time: 03/10/2018 10:39 am Signed by: MD WARE SHARDUL Transcribed Date and Time: 03/10/2018 10:40 Normal [facility] Vital Signs Date Time Vital Sign Value Performing Clinician Facility 04-17-2025 14:040 Body mass index (BMI) [Ratio] 32.63 kg/m2 Jordan Landon MD Work Phone: [facility] 04-17-2025 14:0400 Body weight 68.4 kg Jordan Landon MD Work Phone: [facility] 04-17-2025 14:06-0400 Diastolic blood pressure 70 mm[Hg] Jordan Landon MD Work Phone: [facility] 04-17-2025 14:06-0400 Heart rate 80 /min Jordan Landon MD Work Phone: [facility] 04-17-2025 14:06-0400 Respiratory rate 16 /min Jordan Landon MD Work Phone: [facility] 04-17-2025 14:06-0400 SaO2% (BldA) [Mass fraction] 98 % Jordan Landon MD Work Phone: [facility] 04-17-2025 14:06-0400 Systolic blood pressure 110 mm[Hg] Jordan Landon MD Work Phone: [facility] 04-02-2025 19:34-0400 Body temperature 98.3 [degF] Dr. Jordan Landon MD Work Phone: [facility] 04-02-2025 19:34-0400 Diastolic blood pressure 60 mm[Hg] Dr. Jordan Landon MD Work Phone: [facility] 04-02-2025 19:34-0400 Heart rate 72 /min Dr. Jordan Landon MD Work Phone: [facility] 04-02-2025 19:34-0400 Respiratory rate 18 /min Dr. Jordan Landon MD Work Phone: [facility] 04-02-2025 19:34-0400 SaO2% (BldA) [Mass fraction] 95 % Dr. Jordan Landon MD Work Phone: [facility] 04-02-2025 19:34-0400 Systolic blood pressure 155 mm[Hg] Dr. Jordan Landon MD Work Phone: [facility] 04-02-2025 18:29-0400 Inhaled oxygen flow rate 2 L/min Dr. Jordan Landon MD Work Phone: [facility] 04-02-2025 17:17-0400 Body height 152.[address] Jordan Landon MD Work Phone: [facility] 04-02-2025 17:17-0400 Body mass index (BMI) [Ratio] 32.1 kg/m2 Dr. Jordan Landon MD Work Phone: [facility] 04-02-2025 17:17-0400 Body weight 74.[address] Jordan Landon MD Work Phone: [facility] 02-27-2025 15:08-0400 Diastolic blood pressure 72 mm[Hg] Yelitza Haagen HVAC SALES ENGINEER.COMMUNITY LIVING SPECIALIST Work Phone: [facility] 02-27-2025 15:08-0400 Heart rate 82 /min Yelitza Kanagen HVAC SALES ENGINEER.COMMUNITY LIVING SPECIALIST Work Phone: [facility] 02-27-2025 15:08-0400 Respiratory rate 16 /min Yelitza Samayoa HVAC SALES ENGINEER.COMMUNITY LIVING SPECIALIST Work Phone: [facility] 02-27-2025 15:08-0400 SaO2% (BldA) [Mass fraction] 93 % Yelitza Samayoa HVAC SALES ENGINEER.COMMUNITY LIVING SPECIALIST Work Phone: [facility] 02-27-2025 15:08-0400 Systolic blood pressure 113 mm[Hg] Yelitza Haagen HVAC SALES ENGINEER.COMMUNITY LIVING SPECIALIST Work Phone: [facility] 02-21-2025 14:21-0400 Body mass index (BMI) [Ratio] 33.82 kg/m2 Keyla Glover HVAC SALES ENGINEER.COMMUNITY LIVING SPECIALIST Work Phone: [facility] 02-21-2025 14:21-0400 Body temperature 99.3 [degF] Keyla Glover HVAC SALES ENGINEER.COMMUNITY LIVING SPECIALIST Work Phone: [facility] 02-21-2025 14:21-0400 Body weight 70.9 kg Keyla Glover HVAC SALES ENGINEER.COMMUNITY LIVING SPECIALIST Work Phone: [facility] 02-21-2025 14:21-0400 Diastolic blood pressure 66 mm[Hg] Keyla Glover HVAC SALES ENGINEER.COMMUNITY LIVING SPECIALIST Work Phone: [facility] 02-21-2025 14:21-0400 Heart rate 86 /min Keyla Glover HVAC SALES ENGINEER.COMMUNITY LIVING SPECIALIST Work Phone: [facility] 02-21-2025 14:21-0400 Respiratory rate 18 /min Keyla Glover HVAC SALES ENGINEER.COMMUNITY LIVING SPECIALIST Work Phone: [facility] 02-21-2025 14:21-0400 SaO2% (BldA) [Mass fraction] 94 % Keyla Glover HVAC SALES ENGINEER.COMMUNITY LIVING SPECIALIST Work Phone: [facility] 02-21-2025 14:21-0400 Systolic blood pressure 118 mm[Hg] Keyla Glover HVAC SALES ENGINEER.COMMUNITY LIVING SPECIALIST Work Phone: [facility] 10-16-2024 15:31-0500 Body height 144.8 cm Sonya Ede HVAC SALES ENGINEER.COMMUNITY LIVING SPECIALIST Work Phone: [facility] 10-16-2024 15:31-0500 Body mass index (BMI) [Ratio] 34.84 kg/m2 Sonya Ede HVAC SALES ENGINEER.COMMUNITY LIVING SPECIALIST Work Phone: [facility] 10-16-2024 15:31-0500 Body temperature 99.1 [degF] Sonya Ede HVAC SALES ENGINEER.COMMUNITY LIVING SPECIALIST Work Phone: [facility] 10-16-2024 15:31-0500 Body weight 73.03 kg Sonya Ede HVAC SALES ENGINEER.COMMUNITY LIVING SPECIALIST Work Phone: [facility] 10-16-2024 15:31-0500 Diastolic blood pressure 74 mm[Hg] Sonya Ede HVAC SALES ENGINEER.COMMUNITY LIVING SPECIALIST Work Phone: [facility] 10-16-2024 15:31-0500 Heart rate 98 /min Sonya Ede HVAC SALES ENGINEER.COMMUNITY LIVING SPECIALIST Work Phone: [facility] 10-16-2024 15:31-0500 SaO2% (BldA) [Mass fraction] 90 % Sonya Ede HVAC SALES ENGINEER.COMMUNITY LIVING SPECIALIST Work Phone: [facility] 10-16-2024 15:31-0500 Systolic blood pressure 133 mm[Hg] Sonya Kenyon COMMUNITY LIVING SPECIALIST Work Phone: [facility] 10-05-2024 13:59-0500 Body mass index (BMI) [Ratio] 30.61 kg/m2 Jordan Landon MD Work Phone: [facility] 10-05-2024 13:59-0500 Body weight 73.48 kg Jordan Landon MD Work Phone: [facility] 10-05-2024 13:59-0500 Diastolic blood pressure 76 mm[Hg] Jordan Landon MD Work Phone: [facility] 10-05-2024 13:59-0500 Heart rate 80 /min Jordan Landon MD Work Phone: [facility] 10-05-2024 13:59-0500 Respiratory rate 18 /min Jordan Landon MD Work Phone: [facility] 10-05-2024 13:59-0500 Systolic blood pressure 124 mm[Hg] Jordan Landon MD Work Phone: [facility] 09-29-2024 14:39-0500 Body mass index (BMI) [Ratio] 30.7 kg/m2 Jordan Landon MD Work Phone: [facility] 09-29-2024 14:39-0500 Body weight 73.7 kg Jordan Landon MD Work Phone: [facility] 09-29-2024 14:39-0500 Diastolic blood pressure 70 mm[Hg] Jordan Landon MD Work Phone: [facility] 09-29-2024 14:39-0500 Heart rate 78 /min Jordan Landon MD Work Phone: [facility] 09-29-2024 14:39-0500 Respiratory rate 18 /min Jordan Landon MD Work Phone: [facility] 09-29-2024 14:39-0500 Systolic blood pressure 124 mm[Hg] Jordan Landon MD Work Phone: [facility] 03-23-2024 14:55-0400 Body mass index (BMI) [Ratio] 32.76 kg/m2 Jordan Landon MD Work Phone: [facility] 03-23-2024 14:55-0400 Body weight 78.65 kg Jordan Landon MD Work Phone: [facility] 03-23-2024 14:55-0400 Diastolic blood pressure 84 mm[Hg] Jordan Landon MD Work Phone: [facility] 03-23-2024 14:55-0400 Heart rate 80 /min Jordan Landon MD Work Phone: [facility] 03-23-2024 14:55-0400 Respiratory rate 18 /min Jordan Landon MD Work Phone: [facility] 03-23-2024 14:55-0400 Systolic blood pressure 132 mm[Hg] Jordan Landon MD Work Phone: [facility] 12-31-2023 13:51-0500 Body weight 77.93 kg Harry Teodoro HVAC SALES ENGINEER.COMMUNITY LIVING SPECIALIST Work Phone: [facility] 12-31-2023 13:51-0500 Diastolic blood pressure 70 mm[Hg] Harry Teodoro HVAC SALES ENGINEER.COMMUNITY LIVING SPECIALIST Work Phone: [facility] 12-31-2023 13:51-0500 Heart rate 87 /min Harry Teodoro HVAC SALES ENGINEER.COMMUNITY LIVING SPECIALIST Work Phone: [facility] 12-31-2023 13:51-0500 Respiratory rate 16 /min Harry Teodoro HVAC SALES ENGINEER.COMMUNITY LIVING SPECIALIST Work Phone: [facility] 12-31-2023 13:51-0500 SaO2% (BldA) [Mass fraction] 96 % Harry Teodoro HVAC SALES ENGINEER.COMMUNITY LIVING SPECIALIST Work Phone: [facility] 12-31-2023 13:51-0500 Systolic blood pressure 120 mm[Hg] Harry Teodoro HVAC SALES ENGINEER.COMMUNITY LIVING SPECIALIST Work Phone: [facility] 01-19-2023 14:27-0400 Body weight 82.64 kg Jordan Landon MD Work Phone: [facility] 01-19-2023 14:27-0400 Diastolic blood pressure 76 mm[Hg] Jordan Landon MD Work Phone: [facility] 01-19-2023 14:27-0400 Heart rate 68 /min Jordan Landon MD Work Phone: [facility] 01-19-2023 14:27-0400 Respiratory rate 16 /min Jordan Landon MD Work Phone: [facility] 01-19-2023 14:27-0400 Systolic blood pressure 138 mm[Hg] Jordan Landon MD Work Phone: [facility] 01-05-2023 14:11-0400 Body temperature 97.7 [degF] Dr. Jordan Landon Work Phone: [facility] 01-05-2023 14:11-0400 Diastolic blood pressure 47 mm[Hg] Dr. Jordan Landon Work Phone: [facility] 01-05-2023 14:11-0400 Heart rate 88 /min Dr. Jordan Landon Work Phone: [facility] 01-05-2023 14:11-0400 Respiratory rate 12 /min Dr. Jordan Landon Work Phone: [facility] 01-05-2023 14:11-0400 SaO2% (BldA) [Mass fraction] 95 % Dr. Jordan Landon Work Phone: [facility] 01-05-2023 14:11-0400 Systolic blood pressure 109 mm[Hg] Dr. Jordan Landon Work Phone: [facility] 01-05-2023 06:00-0400 Body mass index (BMI) [Ratio] 34.7 kg/m2 Dr. Jordan Landon Work Phone: [facility] 01-05-2023 06:00-0400 Body weight 80.[address] Jordan Landon Work Phone: [facility] 01-04-2023 11:01-0400 Inhaled oxygen flow rate 1 L/min Dr. Jordan Landon Work Phone: [facility] 01-04-2023 03:22-0400 Inhaled oxygen concentration 97 % Dr. Jordan Landon Work Phone: [facility] 01-04-2023 03:15-0400 Body height 152.[address] Jordan Landon Work Phone: [facility] 01-04-2023 02:49-0400 Body temperature 97.8 [degF] [facility] 01-04-2023 02:49-0400 Diastolic blood pressure 88 mm[Hg] [facility] 01-04-2023 02:49-0400 Heart rate 72 /min [facility] 01-04-2023 02:49-0400 Respiratory rate 12 /min [facility] 01-04-2023 02:49-0400 SaO2% (BldA) [Mass fraction] 93 % [facility] 01-04-2023 02:49-0400 Systolic blood pressure 176 mm[Hg] [facility] 01-03-2023 23:09-0400 Inhaled oxygen flow rate 1 L/min [facility] 01-03-2023 22:10-0400 Body height 152.4 cm [facility] 01-03-2023 22:10-0400 Body mass index (BMI) [Ratio] 37.8 kg/m2 [facility] 01-03-2023 22:10-0400 Body weight 87.8 kg [facility] 09-18-2022 14:05-0500 Body weight 82.64 kg Jordan Landon MD Work Phone: [facility] 09-18-2022 14:05-0500 Diastolic blood pressure 72 mm[Hg] Jordan Landon MD Work Phone: [facility] 09-18-2022 14:05-0500 Heart rate 82 /min Jordan Landon MD Work Phone: [facility] 09-18-2022 14:05-0500 Respiratory rate 16 /min Jordan Landon MD Work Phone: [facility] 09-18-2022 14:05-0500 Systolic blood pressure 124 mm[Hg] Jordan Landon MD Work Phone: [facility] 06-03-2022 15:13-0400 Body weight 81.47 kg Jordan Landon MD Work Phone: [facility] 06-03-2022 15:13-0400 Diastolic blood pressure 84 mm[Hg] Jordan Landon MD Work Phone: [facility] 06-03-2022 15:13-0400 Heart rate 72 /min Jordan Landon MD Work Phone: [facility] 06-03-2022 15:13-0400 Respiratory rate 20 /min Jordan Landon MD Work Phone: [facility] 06-03-2022 15:13-0400 Systolic blood pressure 136 mm[Hg] Jordan Landon MD Work Phone: [facility] 03-16-2022 15:20-0400 Body weight 83.1 kg Jordan Landon MD Work Phone: [facility] 03-16-2022 15:20-0400 Diastolic blood pressure 78 mm[Hg] Jordan Landon MD Work Phone: [facility] 03-16-2022 15:20-0400 Heart rate 82 /min Jordan Landon MD Work Phone: [facility] 03-16-2022 15:20-0400 Respiratory rate 16 /min Jordan Landon MD Work Phone: [facility] 03-16-2022 15:20-0400 SaO2% (BldA) [Mass fraction] 93 % Jordan Landon MD Work Phone: [facility] 03-16-2022 15:20-0400 Systolic blood pressure 128 mm[Hg] Jordan Landon MD Work Phone: [facility] Encounters Encounter Date Encounter Type Care Provider Facility Start: 05-01-2025 End: 05-05-2025 Telephone encounter Jordan Landon MD Work Phone: [facility] Comment on above: Home Health: PT Plan of Care Update Start: 04-23-2025 End: 04-24-2025 Telephone encounter Jordan Landon MD Work Phone: [facility] Comment on above: Medication Question Start: 04-17-2025 End: 04-17-2025 ambulatory JORDAN LANDON Facility:[facility] Start: 04-17-2025 End: 04-17-2025 Office outpatient visit 25 minutes Jordan Landon MD Work Phone: [facility] Comment on above: Essential hypertensi on (Primary Dx); Anemia, unspecified type; Mixed hyperlipidemia; OAB (overactive bladder); Anxiety with depression; Gait abnormality; Frequent falls; Iron deficiency anemia, unspecified iron deficiency anemia type Start: 04-16-2025 End: 04-16-2025 Telephone encounter Jordan Landon MD Work Phone: [facility] Comment on above: OT plan of care Start: 04-13-2025 End: 04-16-2025 Telephone encounter Connor Alonzo MD Work Phone: [facility] Comment on above: Results Start: 04-12-2025 ambulatory JORDAN LANDON Facil ity:[facility] Start: 04-12-2025 End: 04-12-2025 Subsequent hospital visit by physician Tamara [facility] Work Phone: Radiology Comment on above: Bacterial pneumonia [J15.9] Start: 04-11-2025 End: 04-11-2025 Refill Jordan Landon MD Work Phone: [facility] Start: 04-10-2025 End: 04-10-2025 Telephone encounter Jordan Landon MD Work Phone: [facility] Comment on above: Patient Update Start: 04-09-2025 End: 04-09-2025 Telephone encounter Jordan Landon MD Work Phone: [facility] Comment on above: Release Of Medical R ecords Start: 04-03-2025 End: 04-03-2025 Telephone encounter Jordan Landon MD Work Phone: [facility] Comment on above: Electronic Communica tion ([facility]) Start: 04-02-2025 End: 04-02-2025 Emergency department patient visit Dr. Jordan Landon MD Work Phone: -Emergency Department Work Phone: Start: 04-02-2025 End: 04-02-2025 Telephone encounter Jordan Landon MD Work Phone: [facility] Comment on above: Electronic Communica tion ([facility]) Start: 03-12-2025 End: 03-12-2025 Telephone encounter Joradn Landon MD Work Phone: [facility] Comment on above: requesting medicatio n that is Start: 02-27-2025 End: 02-27-2025 Office outpatient visit 15 minutes Yelitza Samayoa APRN.COMMUNITY LIVING SPECIALIST Work Phone: [facility] Comment on above: Bacterial pneumonia (Primary Dx) Start: 02-27-2025 End: 02-27-2025 ambulatory JORDAN LANDON Facility:[facility] Start: 02-27-2025 End: 02-27-2025 Telephone encounter Yelitza Samayoa APRN.COMMUNITY LIVING SPECIALIST Work Phone: [facility] Start: 02-21-2025 End: 02-21-2025 Subsequent hospital visit by physician Xr [facility] Work Phone: Radiology Comment on above: Acute cough [R05.1] Start: 02-21-2025 End: 02-21-2025 Patient encounter procedure Keyla Glover HVAC SALES ENGINEER.COMMUNITY LIVING SPECIALIST Work Phone: [facility] Comment on above: Acute cough (Primary Dx); Bacterial pneumonia Start: 02-21-2025 End: 02-21-2025 ambulatory JORDAN LANDON Facility:[facility] Start: 02-13-2025 End: 02-13-2025 Refill Jordan Landon MD Work Phone: [facility] Comment on above: Refill Request Start: 02-08-2025 End: 02-08-2025 Telephone encounter Jordan Landon MD Work Phone: [facility] Comment on above: Electronic Communica tion ([place] [facility] - Incident note) Start: 01-19-2025 End: 01-19-2025 Telephone encounter Jordan Landon MD Work Phone: [facility] Comment on above: Electronic Communica tion ([place] [facility] - Incident note (fall 01/18/25)) Start: 01-16-2025 End: 01-16-2025 Telephone encounter Jordan Landon MD Work Phone: [facility] Comment on above: Appointment Start: 01-15-2025 End: 01-16-2025 Telephone encounter Jordan Landon MD Work Phone: [facility] Comment on above: Electronic Communica tion ([place]) Start: 12-25-2024 End: 12-25-2024 Telephone encounter Jordan Landon MD Work Phone: [facility] Comment on above: Electronic Communica tion ([place]) Start: 12-18-2024 End: 12-19-2024 Telephone encounter Jordan Landon MD Work Phone: [facility] [place] Comment on above: Electronic Communica tion ([place]) Start: 12-14-2024 End: 12-15-2024 Telephone encounter Jordan Landon MD Work Phone: [facility] Comment on above: Electronic Communica tion ([facility] - [place]) Start: 11-16-2024 End: 11-21-2024 Telephone encounter Jordan Landon MD Work Phone: [facility] Comment on above: Forms (Admission for ms for [facility] ) Start: 11-14-2024 End: 11-14-2024 Telephone encounter Jordan Landon MD Work Phone: [facility] [place] Comment on above: Electronic Communica tion ([place]) Start: 11-13-2024 End: 11-13-2024 Telephone encounter Jordan Landon MD Work Phone: [facility] Comment on above: Patient Update Start: 11-06-2024 End: 11-06-2024 ambulatory Jordan FIELDS Facility:[facility] Start: 11-03-2024 End: 11-03-2024 Telephone encounter Jordan Landon MD Work Phone: [facility] Comment on above: Electronic Communica tion ([facility]) Start: 11-02-2024 End: 11-02-2024 Telephone encounter Jordan Landon MD Work Phone: [facility] Comment on above: Patient Question Start: 10-24-2024 End: 10-24-2024 Refill Jordan Landon MD Work Phone: [facility] Comment on above: Refill Request Start: 10-19-2024 End: 10-19-2024 Telephone encounter [facility] Comment on above: Electronic Communica tion ([facility]) Start: 10-16-2024 End: 10-16-2024 ambulatory SONYAPATRICIO KENYON Facility:[facility] Start: 10-16-2024 End: 10-16-2024 Patient encounter procedure Sonya Kenyon HVAC SALES ENGINEER.COMMUNITY LIVING SPECIALIST Work Phone: General Surgery Comment on above: Iron deficiency anem ia, unspecified iron deficiency anemia type; Family history of colon cancer; Weight loss Start: 10-05-2024 End: 10-05-2024 ambulatory JORDAN LANDON Facility:[facility] Start: 10-05-2024 End: 10-05-2024 Patient encounter procedure Jordan Landon MD Work Phone: [facility] Comment on above: Fall, initial encoun ter (Primary Dx); Injury of head, initial encounter; Anemia, unspecified type; Iron deficiency anemia, unspecified iron deficiency anemia type; Family history of colon cancer; Weight loss Start: 10-05-2024 End: 10-05-2024 Telephone encounter Jordan Landon MD Work Phone: [facility] Comment on above: Results Start: 10-03-2024 End: 10-06-2024 Telephone encounter Jordan Landon MD Work Phone: [facility] Comment on above: Results Electronic Communica tion ([place]) Start: 10-02-2024 End: 10-03-2024 Telephone encounter Jordan Landon MD Work Phone: [facility] Comment on above: Electronic Communica tion ([facility]) Start: 09-30-2024 End: 09-30-2024 Emergency department patient visit [facility] Facility:[facility] Start: 09-29-2024 End: 09-29-2024 ambulatory [facility] Facility:[facility] Start: 09-29-2024 End: 09-29-2024 Patient encounter procedure Jordan Landon MD Work Phone: [facility] Comment on above: Essential hypertensi on (Primary Dx); Mixed hyperlipidemia; Anxiety with depression; Primary hyperparathyroidism (HCC); Acute deep vein thrombosis (DVT) of proximal vein of right lower extremity (HCC); Right leg swelling; Chronic back pain, unspecified back location, unspecified back pain laterality; Lumbar radiculopathy; Low hemoglobin; OAB (overactive bladder); Urinary incontinence, unspecified type; Encounter for immunization; Anemia, unspecified type Start: 09-25-2024 End: 09-25-2024 ambulatory [facility] Facility:[facility] Start: 09-22-2024 End: 09-26-2024 Telephone encounter Jordan Landon MD Work Phone: [facility] Comment on above: Electronic Communica tion ([facility]) Start: 09-19-2024 End: 09-22-2024 Telephone encounter Jordan Landon MD Work Phone: [facility] Comment on above: Lab Orders Start: 09-14-2024 End: 10-06-2024 Telephone encounter Jordan Landon MD Work Phone: [facility] Comment on above: Electronic Communica tion ([facility] Start: 09-01-2024 End: 09-01-2024 Refill Jordan Landon MD Work Phone: [facility] Comment on above: Refill Request Start: 08-17-2024 End: 08-17-2024 Telephone encounter Jordan Landon MD Work Phone: [facility] Comment on above: Electronic Communica tion ([facility] ) Start: 08-15-2024 End: 08-15-2024 Emergency department patient visit Jordan Landon Facility:[facility] Start: 07-27-2024 End: 07-27-2024 Refill Jordan Landon MD Work Phone: [facility] Comment on above: Refill Request Start: 06-19-2024 End: 06-20-2024 Telephone encounter Jordan Landon MD Work Phone: [facility] Comment on above: Electronic Communica tion ([facility]) Start: 06-16-2024 End: 06-16-2024 ambulatory José Nakia Facility:[facility] Start: 06-08-2024 Telephone encounter Jordan walsh MD Work Phone: [facility] Comment on above: Electronic Communica tion ([facility]) Start: 05-02-2024 Telephone encounter Jordan walsh MD Work Phone: [facility] Comment on above: Electronic Communica tion ([facility]) Start: 05-01-2024 Telephone encounter Jordan walsh MD Work Phone: [facility] Comment on above: Electronic Communica tion ([facility]) Start: 04-03-2024 Refill Harry Laura APRN.CNP Work Phone: [facility] Comment on above: Refill Request Start: 03-30-2024 Telephone encounter Jordan walsh MD Work Phone: [facility] Comment on above: Electronic Communica tion (prison faxed report) Start: 03-23-2024 End: 03-23-2024 Patient encounter procedure Jordan Landon MD Work Phone: [facility] Comment on above: Essential hypertensi on (Primary Dx); Mixed hyperlipidemia; Anxiety with depression; Acute deep vein thrombosis (DVT) of proximal vein of right lower extremity (HCC); Lumbar radiculopathy; Chronic back pain, unspecified back location, unspecified back pain laterality; OAB (overactive bladder); Urinary incontinence, unspecified type; Low hemoglobin; Primary hyperparathyroidism (HCC) Start: 03-13-2024 Telephone encounter Jordan walsh MD Work Phone: [facility] Comment on above: Lab Orders (/) Start: 03-08-2024 Refill Vonda Valencia APRN.COMMUNITY LIVING SPECIALIST Work Phone: [facility] Comment on above: Refill Request Start: 03-06-2024 Telephone encounter Jordan walsh MD Work Phone: [facility] Comment on above: Medication Problem ( Gabapentin) Start: 03-01-2024 Refill Harry Laura HVAC SALES ENGINEER.COMMUNITY LIVING SPECIALIST Work Phone: [facility] Comment on above: Refill Request Start: 02-17-2024 Telephone encounter Jordan walsh MD Work Phone: [facility] Comment on above: Electronic Communica tion ([facility]) Start: 01-10-2024 Refill Jordan rosales MD Work Phone: [facility] Comment on above: Refill Request (Nyst atin) Start: 12-31-2023 End: 12-31-2023 Office outpatient visit 15 minutes Harry Laura HVAC SALES ENGINEER.COMMUNITY LIVING SPECIALIST Work Phone: [facility] Comment on above: Acute deep vein thro mbosis (DVT) of proximal vein of right lower extremity (HCC) (Primary Dx); Nonrheumatic mitral valve stenosis Start: 12-21-2023 Telephone encounter Jordan walsh MD Work Phone: [facility] Comment on above: Forms (Request to ho ld Blood Thinner ) Start: 11-22-2023 Telephone encounter Harry Juju arias APRN.CNP Work Phone: [facility] Comment on above: Results Start: 09-10-2023 End: 09-10-[address] [facility] Work Phone: Start: 09-10-2023 End: 09-10-2023 Departed Referred [facility] Work Phone: Start: 09-08-2023 Telephone encounter Jordan walsh MD Work Phone: [facility] Comment on above: Patient Question Start: 07-22-2023 End: 07-22-[address] [facility] Work Phone: Start: 07-22-2023 End: 07-22-2023 Patient encounter procedure [facility], [facility] Work Phone: Start: 06-14-2023 Telephone encounter Jordan walsh MD Work Phone: [facility] Comment on above: not on current list (Nystatin cream) Start: 05-31-2023 Telephone encounter Jordan walsh MD Work Phone: [facility] Comment on above: Fall Start: 05-11-2023 ambulatory Jordan rosales MD Work Phone: [facility] Start: 04-29-2023 Telephone encounter Jordan walsh MD Work Phone: [facility] Comment on above: Electronic Communica tion Start: 03-05-2023 Telephone encounter Jordan walsh MD Work Phone: [facility] Comment on above: Electronic Communica tion ([facility]) Start: 01-19-2023 End: 01-19-2023 Patient encounter procedure Jordan Landon MD Work Phone: [facility] Comment on above: Hospital discharge f ollow-up (Primary Dx); At high risk for falls; Essential hypertension Start: 01-07-2023 Patient Outreach Jordan gore MD Work Phone: [facility] Comment on above: Transition Of Care ( [facility] hosp f/u) Start: 01-05-2023 Non-patient / Non-visit Dr. Alvarado Landon Work Phone: [facility] Start: 01-04-2023 Non-patient / Non-visit Dr. Alvarado Landon Work Phone: [facility] Start: 01-04-2023 End: 01-05-2023 Evaluation and management of inpatient [facility] 3 Start: 01-04-2023 End: 01-05-[address] Jordan Landon Work Phone: [facility] Work Phone: Start: 09-18-2022 End: 09-18-2022 Patient encounter procedure Jordan Landon MD Work Phone: [facility] Comment on above: Essential hypertensi on (Primary Dx); Mixed hyperlipidemia; Elevated glucose; Lumbar radiculopathy; Right hip pain; Yeast dermatitis Start: 08-25-2022 Telephone encounter Jordan walsh MD Work Phone: [facility] Comment on above: Forms Start: 06-03-2022 End: 06-03-2022 Patient encounter procedure Jordan Landon MD Work Phone: [facility] Comment on above: Lumbar radiculopathy (Primary Dx); Right hip pain; Yeast dermatitis; Essential hypertension; Chronic back pain, unspecified back location, unspecified back pain laterality Start: 03-16-2022 End: 03-16-2022 Patient encounter procedure Jordan Landon MD Work Phone: [facility] Comment on above: Essential hypertensi on (Primary Dx); Lumbar radiculopathy; Mixed hyperlipidemia; Primary hyperparathyroidism (HCC); Osteoarthritis, unspecified osteoarthritis type, unspecified site; Bilateral carotid artery stenosis; Gait abnormality; Chronic back pain, unspecified back location, unspecified back pain laterality Start: 05-05-2018 Patient encounter Halie Renee [facility] Start: 03-11-2018 [facility] Start: 03-10-[facility] Patient encounter Halie Renee [facility] Procedures Date Procedure Procedure Detail Performing Clinician Start: 04-02-2025 CT cervical spine wi thout contrast Dr. Jordan Landon MD Work Phone: Start: 04-02-2025 CT of head without contrast Dr. Jordan Landon MD Work Phone: Start: 02-21-2025 Radiologic exam ches t 2 views Keyla Glover HVAC SALES ENGINEER.COMMUNITY LIVING SPECIALIST Work Phone: Start: 09-29-2024 PFIZER-BIONTECH COVI D-19 VACCINE AGE 12+ YR (COMIRNATY) Jordan Landon MD Work Phone: Start: 09-25-2024 Comprehensive metabo lic 2000 panel - Serum or Plasma [facility] Provider Start: 09-25-2024 Lipid panel [facility] Provid er Start: 09-25-2024 CBCDIF (EXTERNAL) [facility] P rovider Start: 07-22-2023 Plain X-ray of shoulder Start: 01-04-2023 CT angiography of ch est with contrast Dr. Jordan Landon Work Phone: Start: 01-04-2023 Plain chest X-ray Start: 01-03-2023 CT cervical spine wi thout contrast Start: 01-03-2023 CT of head without contrast Respiratory Panel (PCR) Dr. Jordan Landon Work Phone: Viral antigen assay Plan of Treatment Date Care Activity Detail Author Start: 04-02-2035 Urine microalbumin profile DTaP,Tdap,Td Vaccine (5 - Td or Tdap) [facility] Start: 11-20-2031 Urine microalbumin profile [facility] Start: 08-31-2030 Urine microalbumin profile DTAP,TDAP,TD (3 - Td or Tdap) [facility] Start: 04-19-2028 Diabetes Screening Diabetes Screening [facility] Start: 09-25-2027 Diabetes Screening Diabetes Screening [facility] Start: 03-14-2027 Diabetes Screening Diabetes Screening [facility] Start: 03-16-2026 DIABETES SCREEN DIABETES SCREEN [facility] Start: 03-16-2026 Diabetes Screening Diabetes Screening [facility] Start: 10-23-2025 End: 10-23-2025 Patient encounter procedure 10/23/2025 10:20 AM EST Office Visit Internal Medicine [facility] [address] [place] [address] Jovani Power MD [address] [facility] [address] Transfer pt Internal Medicine [facility] Comment on above: Transfer pt Start: 09-29-2025 RSV Vaccine (1 - 1-dose 75+ series) RSV Vaccine (1 - 1-dose 75+ series) [facility] Comment on above: Postponed from 01/22/2012 (Insurance Cov erage) Start: 09-29-2025 Shingrix Vaccine (1 of 2) Shingrix Vaccine (1 of 2) [facility] Comment on above: Postponed from 1987 (Insurance Cov erage) Start: 09-15-2025 DIABETES SCREEN DIABETES SCREEN [facility] Start: 06-25-2025 Influenza vaccination Influenza Vaccine (#1) [facility] Start: 05-03-2025 End: 05-03-2025 ambulatory 05/03/2025 10:15 AM EDT OT/PT/Speech Visit [facility] [address] [place] [address] Keyla Booker, PT Balance-----Prevent Falls [facility] Comment on above: Balance-----Prevent Falls Start: 04-27-2025 End: 05-13-2026 XR Chest PA and Lateral XR CHEST 2V FRONTAL/LAT Radiology Routine Abnormal x-ray Expected: 04/27/2025, Expires: 05/13/2026 [facility] Work Phone: Comment on above: Expected: 04/27/2025, Expires: Start: 04-17-2025 End: 07-17-2025 CBC panel - Blood by Automated count COMPLETE BLOOD COUNT Lab Routine Essential hypertension Iron deficiency anemia, unspecified iron deficiency anemia type Expected: 04/17/2025 (Approximate), Expires: 07/17/2025 [facility] Comment on above: Expected: 04/17/2025 (Approximate), Expi res: 07/17/2025 Start: 04-17-2025 End: 07-17-2025 Comprehensive metabolic 2000 panel - Serum or Plasma COMPREHENSIVE METABOLIC PANEL Lab Routine Essential hypertension Mixed hyperlipidemia Expected: 04/17/2025 (Approximate), Expires: 07/17/2025 [facility] Work Phone: Comment on above: Expected: 04/17/2025 (Approximate), Expi res: 07/17/2025 Start: 04-17-2025 End: 07-17-2025 Iron and Iron binding capacity panel - Serum or Plasma IRON AND TIBC Lab Routine Iron deficiency anemia, unspecified iron deficiency anemia type Expected: 04/17/2025 (Approximate), Expires: 07/17/2025 [facility] Comment on above: Expected: 04/17/2025 (Approximate), Expi res: 07/17/2025 Start: 04-17-2025 End: 07-17-2025 Lipid 1996 panel - Serum or Plasma LIPID PANEL, FASTING Lab Routine Essential hypertension Mixed hyperlipidemia Expected: 04/17/2025 (Approximate), Expires: 07/17/2025 [facility] Comment on above: Expected: 04/17/2025 (Approximate), Expi res: 07/17/2025 Start: 04-17-2025 End: 04-17-2025 Patient encounter procedure 04/17/2025 2:00 PM EDT Office Visit Family Hilario [place] [address] [place] [address] Jordan Landon MD [address] [facility] [place] [address] 6 mo f/u Family Hilario [facility] Comment on above: 6 mo f/u Start: 04-12-2025 End: 04-12-2025 Patient encounter procedure 04/12/2025 10:00 AM EDT Appointment Radiology [address] [facility] [place] [address] Radiology Start: 04-02-2025 [facility] Start: 03-30-2025 Covid-19 Vaccine () Covid-19 Vaccine () [facility] Start: 03-30-2025 End: 03-30-2025 Patient encounter procedure 03/30/2025 1:20 PM EDT Office Visit [facility] [address] [place] [address] Jordan Landon MD [address] [place] [address] 6 mo f/u [facility] Comment on above: 6 mo f/u Start: 03-09-2025 DIABETES SCREEN DIABETES SCREEN [facility] Start: 02-27-2025 End: 02-27-2025 Patient encounter procedure 02/27/2025 3:00 PM EDT Office Visit [facility] [address] [place] [address] Yelitza Samayoa, CASSANDRA.COMMUNITY LIVING SPECIALIST [address] [place] [address] f/u cough [facility] Comment on above: f/u cough Start: 11-01-2024 End: 01-31-2025 CBC panel - Blood by Automated count COMPLETE BLOOD COUNT Lab Routine Anemia, unspecified type Expected: 11/01/2024 (Approximate), Expires: 01/31/2025 [facility] Work Phone: Comment on above: Expected: 11/01/2024 (Approximate), Expi res: 01/31/2025 Start: 11-01-2024 End: 01-31-2025 Iron and Iron binding capacity panel - Serum or Plasma IRON AND TIBC Lab Routine Anemia, unspecified type Expected: 11/01/2024 (Approximate), Expires: 01/31/2025 [facility] Comment on above: Expected: 11/01/2024 (Approximate), Expi res: 01/31/2025 Start: 10-25-2024 Advance Directive Discussion Advance Directive Discussion [facility] Start: 10-16-2024 End: 10-16-2024 Patient encounter procedure 10/16/2024 3:45 PM EST Office Visit General Surgery [address] [place] [address] Simone Lakhani MD [address] [place] [address] Iron deficiency anemia, unspecified iron deficiency anemia type [D50.9]; Family history of colon cancer [Z80.0]; Weight loss [R63.4] General Surgery Comment on above: Iron deficiency anemia, unspecified iron deficiency anemia type [D50.9]; Family history of colon cancer [Z80.0]; Weight loss [R63.4] Start: 10-05-2024 End: 10-05-2024 Patient encounter procedure 10/05/2024 2:20 PM EST Office Visit Family Medicine [facility] [address] [place] [address] Jordan Landon MD [address] [facility] [address] ER Follow up [facility] 09/30/2024; fall with tang [facility] Comment on above: ER Follow up [facility] 09/30/2024; fall with s crescencio Start: 09-29-2024 End: 09-29-2024 Patient encounter procedure 09/29/2024 3:00 PM EST Office Visit [facility] [address] [place] [address] Jordan Landon MD [address] [facility] [address] 6 mo f/u Family Medicine [facility] Comment on above: 6 mo f/u Start: 09-29-2024 End: 12-29-2024 CBC panel - Blood by Automated count [facility] Comment on above: Expected: 09/29/2024, Expires: Start: 09-29-2024 End: 12-29-2024 Iron and Iron binding capacity panel - Serum or Plasma [facility] Work Phone: Comment on above: Expected: 09/29/2024, Expires: Start: 09-23-2024 End: 12-23-2024 CBC W Auto Differential panel - Blood COMPLETE BLOOD COUNT AND DIFFERENTIAL Lab Routine Essential hypertension Low hemoglobin Expected: 09/23/2024 (Approximate), Expires: 12/23/2024 [facility] Work Phone: Comment on above: Expected: 09/23/2024 (Approximate), Expi res: 12/23/2024 Start: 09-23-2024 End: 12-23-2024 Comprehensive metabolic 2000 panel - Serum or Plasma COMPREHENSIVE METABOLIC PANEL Lab Routine Mixed hyperlipidemia Expected: 09/23/2024 (Approximate), Expires: 12/23/2024 [facility] Comment on above: Expected: 09/23/2024 (Approximate), Expi res: 12/23/2024 Start: 09-23-2024 End: 12-23-2024 Lipid 1996 panel - Serum or Plasma LIPID PANEL BASIC Lab Routine Essential hypertension Mixed hyperlipidemia Expected: 09/23/2024 (Approximate), Expires: 12/23/2024 [facility] Comment on above: Expected: 09/23/2024 (Approximate), Expi res: 12/23/2024 Start: 06-25-2024 Covid-19 Vaccine ( season) Covid-19 Vaccine ( season) [facility] Start: 06-25-2024 Influenza vaccination Influenza Vaccine (#1) [facility] Start: 03-23-2024 End: 03-23-2024 Patient encounter procedure 03/23/2024 3:00 PM EDT Office Visit Family Hilario [place] [address] [place] [id number] Jordan Landon MD [address] [place] [id number] 6 month follow up Family Hilario [place] Comment on above: 6 month follow up Start: 03-13-2024 End: 06-12-2024 CBC panel - Blood by Automated count COMPLETE BLOOD COUNT Lab Routine Essential hypertension Expected: 03/13/2024 (Approximate), Expires: 06/12/2024 [facility] Comment on above: Expected: 03/13/2024 (Approximate), Expi res: 06/12/2024 Start: 03-13-2024 End: 06-12-2024 Comprehensive metabolic 2000 panel - Serum or Plasma COMPREHENSIVE METABOLIC PANEL Lab Routine Essential hypertension Mixed hyperlipidemia Expected: 03/13/2024 (Approximate), Expires: 06/12/2024 [facility] Work Phone: Comment on above: Expected: 03/13/2024 (Approximate), Expi res: 06/12/2024 Start: 03-13-2024 End: 06-12-2024 Lipid 1996 panel - Serum or Plasma LIPID PANEL BASIC Lab Routine Essential hypertension Mixed hyperlipidemia Expected: 03/13/2024 (Approximate), Expires: 06/12/2024 [facility] Comment on above: Expected: 03/13/2024 (Approximate), Expi res: 06/12/2024 Start: 01-20-2024 Covid-19 Vaccine ( season) Covid-19 Vaccine () [facility] Start: 10-25-2023 Advance Directive Discussion Advance Directive Discussion [facility] Start: 06-25-2023 Covid-19 Vaccine ( season) Covid-19 Vaccine () [facility] Start: 06-25-2023 Influenza vaccination [facility] Start: 03-18-2023 End: 05-18-2023 CBC panel - Blood by Automated count CBC Lab Routine Essential hypertension Expected: 03/18/2023 (Approximate), Expires: 05/18/2023 [facility] Work Phone: Comment on above: Expected: 03/18/2023 (Approximate), Expi res: 05/18/2023 Start: 03-18-2023 End: 05-18-2023 Comprehensive metabolic 2000 panel - Serum or Plasma COMP METABOLIC PANEL Lab Routine Essential hypertension Mixed hyperlipidemia Expected: 03/18/2023 (Approximate), Expires: 05/18/2023 [facility] Work Phone: Comment on above: Expected: 03/18/2023 (Approximate), Expi res: 05/18/2023 Start: 03-18-2023 End: 05-18-2023 Lipid 1996 panel - Serum or Plasma LIPID PANEL BASIC Lab Routine Essential hypertension Mixed hyperlipidemia Expected: 03/18/2023 (Approximate), Expires: 05/18/2023 [facility] Work Phone: Comment on above: Expected: 03/18/2023 (Approximate), Expi res: 05/18/2023 Start: 01-05-[address] [facility] Start: 01-04-[address] [facility] Start: 01-04-2023 [facility] Start: 01-04-[address] [facility] Start: 01-04-2023 Assessment of risk of venous thromboembolism [facility] Start: 01-04-[address] [facility] Start: 01-04-[address] [facility] Start: 01-04-[address] [facility] Start: 01-04-2023 Insertion of catheter into peripheral vein [facility] Start: 01-04-2023 Introduction of urinary catheter [facility] Start: 01-04-2023 Me[address]uring intake and output [facility] Start: 01-04-[address] [facility] Start: 01-04-2023 Providing care according to standard [facility] Start: 01-04-2023 Provision [address] privileges [facility] Start: 01-04-2023 Referral to occupational therapist [facility] Start: 01-04-[address] [facility] Start: 01-04-2023 Following clinical pathway protocol [facility] Start: 01-04-2023 Viral nucleic acid assay [facility] Start: 01-04-2023 End: 01-04-2023 [facility] Start: 01-04-[address] [facility] Start: 01-04-[address] [facility] Start: 01-03-2023 End: 01-03-2023 [facility] Start: 11-29-2022 COVID-19 VACCINE (5 - Pfizer series) COVID-19 VACCINE (5 - Pfizer series) [facility] Start: 10-25-2022 ADVANCE DIRECTIVE DISCUSSION ADVANCE DIRECTIVE DISCUSSION [facility] Start: 01-01-2023 DEPRESSION ASSESSMENT DEPRESSION ASSESSMENT [facility] Start: 09-16-2022 End: 11-16-2022 CBC W Auto Differential panel - Blood CBC + DIFF Lab Routine Essential hypertension Primary hyperparathyroidism (HCC) Osteoarthritis, unspecified osteoarthritis type, unspecified site Expected: 09/16/2022 (Approximate), Expires: 11/16/2022 [facility] Work Phone: Comment on above: Expected: 09/16/2022 (Approximate), Expi res: 11/16/2022 Start: 09-16-2022 End: 11-16-2022 Comprehensive metabolic 2000 panel - Serum or Plasma COMP METABOLIC PANEL Lab Routine Essential hypertension Mixed hyperlipidemia Expected: 09/16/2022 (Approximate), Expires: 11/16/2022 [facility] Work Phone: Comment on above: Expected: 09/16/2022 (Approximate), Expi res: 11/16/2022 Start: 09-16-2022 End: 11-16-2022 LIPID PANEL BASIC LIPID PANEL BASIC Lab Routine Essential hypertension Mixed hyperlipidemia Expected: 09/16/2022 (Approximate), Expires: 11/16/2022 [facility] Work Phone: Comment on above: Expected: 09/16/2022 (Approximate), Expi res: 11/16/2022 Start: 06-25-2022 Influenza vaccination INFLUENZA (#1) [facility] Start: 12-05-2021 COVID-19 VACCINE (4 - Booster for Pfizer series) COVID-19 VACCINE (4 - Booster for Pfizer series) [facility] Start: 10-25-2021 DEPRESSION ASSESSMENT DEPRESSION ASSESSMENT [facility] Start: 09-29-2021 COVID-19 VACCINE (4 - Booster for Pfizer series) COVID-19 VACCINE (4 - Booster for Pfizer series) [facility] Start: 01-22-2012 RSV Vaccine (1 - 1-dose 75+ series) RSV Vaccine (1 - 1-dose 75+ series) [facility] Start: 2002 Pneumococcal Vaccine: 65+ (1 - PCV) Pneumococcal Vaccine: 65+ (1 - PCV) [facility] Start: 2002 PNEUMOCOCCAL: 65+ (1 - PCV) PNEUMOCOCCAL: 65+ (1 - PCV) [facility] Start: 12-23-2001 Medicare Annual Wellness Visit Medicare Annual Wellness Visit [facility] Start: 1997 RSV Vaccine (1 - 1-dose 60+ series) RSV Vaccine (1 - 1-dose 60+ series) [facility] Start: 1987 SHINGRIX VACCINE (1 of 2) SHINGRIX VACCINE (1 of 2) [facility] Hemoglobin.gastroint kade nal.lower [Presence] in Stool by Immunoassay IMMUNOCHEMICAL FECAL OCCULT BLOOD TEST Lab Routine Anemia, unspecified type Ordered: 09/29/2024 [facility] Comment on above: Ordered: 09/29/2024 Patient Education ED Laceration Scalp Stitches or [place] ED Fall Prevention [facility] Work Phone: Patient referral [facility] Work Phone: SARS-CoV-2 (COVID-19 ) Ag [Presence] in Respiratory specimen by Rapid immunoassay [facility] End: 03-29-2026 XR Chest PA and Lateral XR CHEST 2V FRONTAL/LAT Radiology Routine Bacterial pneumonia 1 Occurrences starting 02/27/2025 until 03/29/2026 [facility] Work Phone: Comment on above: 1 Occurrences starting 02/27/2025 until 03/29/2026 XR Chest PA and Lateral XR CHEST 2V FRONTAL/LAT Radiology Routine Bacterial pneumonia 04/12/2025 10:05 AM EDT [facility] Work Phone: [facility] Immunizations Immunization Date Immunization Notes Care Provider Fa cility 04-02-2025 tetanus toxoid, redu amanda diphtheria toxoid, and acellular pertussis vaccine, adsorbed Dr. Jordan Landon MD Work Phone: [facility] 09-29-2024 COVID-19 vaccine, ag e 12+ yr ([employer] COMIRNAT) Jordan Landon MD Work Phone: [facility] 09-04-2024 influenza, high dose seasonal, preservative-free Jordan Landon MD Work Phone: [facility] 11-11-2024 influenza virus vacc ine, unspecified formulation Jordan Landon MD Work Phone: [facility] 09-21-2023 COVID-19 vaccine, ag e 12+ yr, season (P[employer]ER-BIONTECH) Harry Laura HVAC SALES ENGINEER.COMMUNITY LIVING SPECIALIST Work Phone: [facility] 09-21-2023 pneumococcal conjuga te (PCV20) vaccine, 20 valent (PREVNAR 20) Harry Laura HVAC SALES ENGINEER.COMMUNITY LIVING SPECIALIST Work Phone: [facility] 08-18-2023 influenza, high dose seasonal, preservative-free Harry Laura HVAC SALES ENGINEER.COMMUNITY LIVING SPECIALIST Work Phone: [facility] 08-18-2023 influenza virus vacc ine, unspecified formulation Jordan Landon MD Work Phone: [facility] 09-10-2022 influenza, high dose seasonal, preservative-free Jordan Landon MD Work Phone: [facility] 09-10-2022 influenza virus vacc ine, unspecified formulation Jordan Landon MD Work Phone: [facility] 11-20-2021 tetanus toxoid, redu amanda diphtheria toxoid, and acellular pertussis vaccine, adsorbed Jordan Landon MD Work Phone: [facility] 08-04-2021 COVID-19 vaccine, ag e 12+ yr (PFI[employer]ER-BIONTE[employer] - PURPLE TOP) Jordan Landon MD Work Phone: [facility] 07-29-2021 influenza, high dose seasonal, preservative-free Jordan Landon MD Work Phone: [facility] 11-26-2020 COVID-19 vaccine, ag e 12+ yr (PFIZER-BIONTECH - PURPLE TOP) Jordan Landon MD Work Phone: [facility] 11-09-2020 COVID-19 vaccine, ag e 12+ yr (PFIZER-BIONTECH - PURPLE TOP) Jordan Landon MD Work Phone: [facility] 08-31-2020 tetanus toxoid, redu amanda diphtheria toxoid, and acellular pertussis vaccine, adsorbed Jordan Landon MD Work Phone: [facility] 07-25-2017 Influenza virus vaccine [facility] 04-29-2015 tetanus toxoid, redu amanda diphtheria toxoid, and acellular pertussis vaccine, adsorbed Jordan Landon MD Work Phone: [facility] 01-06-2007 pneumococcal polysaccharide vaccine, 23 valent Jordan Landon MD Work Phone: [facility] 08-24-1997 influenza virus vacc ine, whole virus Jordan Landon MD Work Phone: [facility] 08-04-1993 influenza virus vacc ine, whole virus Jordan Landon MD Work Phone: [facility] Payers Date Payer Category Payer Self-pay [id number] 2015 Private Health Insurance HUMANA HUMANA MEDICARE SUPPLEMENT [id number] 2015-Present [phone] [address] [address] [place] [address] Indemnity [id number] 2015 Private Health Insurance [id number] 2012 Private Health Insurance [id number] 2001 Medicare 2001 Medicare MEDICARE MEDICAR E A AND B [id number] 2001-Present [phone] [address] [address] [place] [address] Medicare [id number] 2001 Medicare [id number] Unknown [id number] Unknown [id number] Unknown [id number] Unknown [id number] Unknown [id number] Unknown [id number] Social History Date Type Detail Facility Start: 05-02-2018 End: 09-18-2022 Tobacco smoking status NHIS Never smoked tobacco [facility] Start: 03-16-2022 End: 04-17-2025 Alcohol intake Current non-drinker of alcohol (finding) [facility] Start: 03-12-2021 End: 09-18-2022 History SDOH Alcohol Frequency 1 [facility] Start: 03-12-2021 End: 09-18-2022 History SDOH Social Connections Phone 5 [facility] Start: 03-12-2021 End: 09-18-2022 History SDOH Social Connections Zoroastrianism 3 [facility] Start: 03-12-2021 End: 09-18-2022 History SDOH Social Connections Living 7 [facility] Start: 03-12-2021 End: 09-18-2022 History SDOH Physical Activity DPW 0 [facility] Start: 03-12-2021 End: 09-18-2022 History SDOH Stress 2 [facility] Start: 03-11-2021 Education 18 [facility] Start: 1935 Sex Assigned At Female [facility] Start: 03-06-2022 End: 09-18-2022 Exposure to SARS-CoV-2 (event) Not sure [facility] Start: 05-02-2018 End: 09-18-2022 Tobacco use and exposure Smokeless tobacco non-user [facility] Start: 01-04-2023 End: 01-04-2023 Tobacco smoking status NHIS Unknown if ever smoked [facility] Start: 08-31-[address] [facility] Start: 08-31-[address] [facility] Start: 06-16-[address] [facility] Start: 09-17-2022 End: 02-20-2025 History of Social function [facility] Start: 09-17-2022 End: 02-20-2025 Social connection and isolation panel [facility] Do you belong to any clubs or organizations such as restorationist groups, unions, fraternal or athletic groups, or school groups? Yes [facility] Are you now , , , , never or living with a partner? Never [facility] How often to you hav e a drink containing alcohol? Never [facility] How many standard dr inks containing alcohol do you have on a typical day? Patient does not drink [facility] Do you feel stress - tense, restless, nervous, or anxious, or unable to sleep at night because your mind is troubled all the time - these days [OSQ] Only a little [facility] (I/We) worried wheth er (my/our) food would run out before (I/we) got money to buy more. Never true [facility] In the past 12 month s, was there a time when you were not able to pay the mortgage or rent on time? No [facility] Start: 09-08-2021 Gender identity Identifies as female gender (finding) [facility] Start: 09-08-2021 Sexual orientation Heterosexual (finding) [facility] Medical Equipment Procedure Code Equipment Code Equipment Origin al Text Equipment Identifier Dates 5.0MM F-THR LOCK ING SCREW FDA Start: 06-14-2018 GAMMA LAG SCREW FDA Start: 06-14-2018 GAMMA LONG NAIL KIT FDA Start : 06-14-2018 5.0MM F-THR LOCK ING SCREW FDA Start: 06-14-2018 GAMMA LAG SCREW FDA Start: 06-14-2018 GAMMA LONG NAIL KIT FDA Start : 06-14-2018 5.0MM F-THR LOCK ING SCREW FDA Start: 06-14-2018 GAMMA LAG SCREW FDA Start: 06-14-2018 GAMMA LONG NAIL KIT FDA Start : 06-14-2018 5.0MM F-THR LOCK ING SCREW FDA Start: 06-14-2018 GAMMA LAG SCREW FDA Start: 06-14-2018 GAMMA LONG NAIL KIT FDA Start : 06-14-2018 5.0MM F-THR LOCK ING SCREW FDA Start: 06-14-2018 GAMMA LAG SCREW FDA Start: 06-14-2018 GAMMA LONG NAIL KIT FDA Start : 06-14-2018 Goals Date Patient Goal Desired Activity /State Functional Status Date Assessment Result Facility 01-05-2023 Functional status Ambulates;Chair [facility] Work Phone: Mental Status Date Assessment Result Facility 01-05-2023 Cognitive function Voice/Name [facility] Work Phone: 01-03-2023 Cognitive function Voice/Name [facility] Work Phone: Clinical Notes 03-16-2022 to 05-05-2025 Telephone Encounter - Jordan Landon MD - 05/05/2025 12:19 PM EDTTelephone Encounter - Jordan Landon MD - 05/05/2025 12:19 PM EDTEJordan mckeon MD - 04/17/2025 2:00 PM EDT Note Date & Type Note Facility 05-05-2025 Telephone encounter Note Noted Jordan Landon MD [facility] 05-05-2025 Miscellaneous Notes Noted Jordan Landon MD Sergei with [facility] [facility] PT calling with plan of care update. Patient to be seen by PT 2 times per week for 2 more weeks. No call back needed. Stacey Mueller, LIZ documented in this encounter [facility] 05-01-2025 Telephone encounter Note Sergei with [facility] PT calling with plan of care update. Patient to be seen by PT 2 times per week for 2 more weeks. No call back needed. Stacey Mueller RN [facility] 04-24-2025 Telephone encounter Note Detailed message left on Sophie's identified VM. Citlalli Brown MA [facility] 04-24-2025 Miscellaneous Notes Detailed message left on Sophie's identified VM. Citlalli Brown MA She may take them both as needed Jordan Landon MD Sophie nurse with [facility] is calling due to patient states that she is taking milk of mag and imodium but they are not on her current medication list. Nurse needs to know if patient is to be taking these? Please review and advise, nurse needs called back with information documented in this encounter [facility] 04-24-2025 Telephone encounter Note She may take them both as needed Jordan Landon MD [facility] 04-23-2025 Telephone encounter Note Sophie nurse with [facility] is calling due to patient states that she is taking milk of mag and imodium but they are not on her current medication list. Nurse needs to know if patient is to be taking these? Please review and advise, nurse needs called back with information [facility] 04-17-2025 History of Present illness Narrative Chief Complaint Patient presents with: 6 Month Exam HPI Terrie Samano is a 89 year old female who presents here today for 6 month follow up. Chronic falls. Uses Rolator. Is now residing at [facility]. She left [facility] because they wanted her to be in half-way due to her chronic falls and pt refused. Saw Yelitza Samayoa in February for Bacterial Pneumonia. Is still coughing. Finished Tessalon perles. Had CXR done 04/12/25 that still showed slight change in RLL No bowel or GI. Follows with Urologist, Dr. Mullen. Uses depends and puts pad down on bed due to night time accidents. Reports no day time accidents. Has overactive bladder and urinary incontinence. Taking Gemtesa 75 mg daily. Edema/DVT: taking Eliquis 5 mg BID and Lasix 20 mg. Lipid: Tries to watch her diet. [facility] does have a set diet plan there, but you can pick other options. Is currently doing PT and they are challenging her. Does do some stretching. Taking Pravastatin 20 mg daily and ASA 81 mg daily. HTN: Does not check BP at home, but the Nurses at [facility] do check her when an incident occurs. no chest pains, dizziness, or shortness of breath. Taking Losartan 100 mg daily and Cardizem 120 mg daily Depression/AGUILAR: Taking Zoloft 50 mg 2 pills once daily. Overall doing pretty well on this regimen. Pain: Chronic back pain and arthritis pain. Takes Gabapentin 300 mg once daily. Does do exercises to help with pain in her back and neck. Receives injections by Dr. Leger in her shoulders and previously in her neck and back. Does do exercises for her back/neck. Past medical history, appointments, medications, allergies reviewed. [...] on File Prior to Visit Medication Sig magnesium hydroxide (MILK OF MAGNESIA) 400 mg/5 mL suspension Take 30 mL by mouth once daily as needed. loperamide (IMODIUM) 2 mg cap(s) Take 1 capsule by mouth four times a day as needed. sertraline (ZOLOFT) 50 mg tablet Take 2 tablets by mouth once daily. gabapentin (NEURONTIN) 300 mg capsule Take 1 capsule by mouth once daily for 7 days. benzonatate (TESSALON PERLE) 100 mg capsule Take 1 capsule by mouth three times a day as needed for cough. losartan (COZAAR) 100 mg tablet Take 1 tablet by mouth once daily. pravastatin (PRAVACHOL) 20 mg tablet Take 1 tablet by mouth once daily. benzonatate (TESSALON PERLE) 100 mg capsule Take 1 capsule by mouth three times a day as needed. nystatin (MYCOSTATIN) cream Apply to affected area once daily as needed. ferrous sulfate 325 mg (65 mg iron) tablet Take 1 tablet by mouth once daily. dilTIAZem CD (CARDIZEM CD) 120 mg 24 hr capsule Take 1 capsule by mouth once daily. vibegron (GEMTESA) 75 mg tablet Take 1 [...] Never Smokeless tobacco: Never Vaping Use Vaping status: Never Used Substance Use Topics Alcohol use: No Drug use: No EXAM: BP 110/70 Pulse 80 Resp 16 Wt 68.4 kg (150 lb 12.7 oz) SpO2 98% BMI 32.63 kg/m General Appearance: Well appearing, alert, in no acute distress, well-hydrated, well nourished.. Lungs: Lungs clear to auscultation. No wheezing, rhonchi, rales.. Heart: RRR with systolic murmur. Health Maintenance List Medicare Annual Wellness Visit Never done Advance Directive Discussion due on 10/25/2024 Covid-19 Vaccine( season) due on 03/30/2025 RSV Vaccine(1 - 1-dose 75+ series) due on 09/29/2025 Shingrix Vaccine(1 of 2) due on 09/29/2025 Diabetes Screening due on 09/25/2027 DTaP,Tdap,Td Vaccine(5 - Td or Tdap) due on 04/02/2035 Bone Density Screening Completed Influenza Vaccine Completed Pneumococcal Vaccine: 50+ Completed Data reviewed none 1. Essential hypertension (I10) - Blood pressure is well-controlled on losartan 100 mg daily. - Continue current medication regimen. 2. Anemia, unspecified type (D64.9) 3. Iron deficiency anemia, unspecified iron deficiency anemia type (D50.9) - Ordered lab work to assess current status; patient to have blood drawn at [place] on . - Prescribed iron supplementation; transmitted prescription to pharmacy. 4. Mixed hyperlipidemia (E78.2) - Managed with Pravachol 20 mg daily. - Continue current medication regimen. 5. OAB (overactive bladder') - Continue current medcation - Follow with Urology 6. Anxiety with depression (F41.8) - Stable on Zoloft. - Continue current medication regimen. 7. Gait abnormality (R26.9) 8. Frequent falls (R29.6) - Patient experiencing frequent falls; currently using a wheelchair for safety. - Engaged in physical and occupational therapy to improve mobility and prevent falls. - Advised to continue working with therapists to enhance balance and strength. To get repeat CXR in a few weeks to follow up on right lung infiltrate Follow up in 6 months Recording using [email or web address] software for draft documentation of the visit was discussed with the patient/authorized sales utility representative; all questions welcomed and answered. Patient/authorized sales utility representative agreed to proceed Medical Decision Making: Problems: Moderate: 2+ stable chronic illnesses Data: Unique test(s) ordered: 3+ Risk: Moderate: Drug management Medical Decision Making Level: 4 - Moderate Jordan Landon MD documented in this encounter [facility] 04-17-2025 Note HNO ID: [id number] Author: JORDAN LANDON MD Service: ? Author Type: Physician Type: Progress Notes Filed: 04/17/2025 14:59 Note Text: Chief Complaint Patient presents with: 6 Month Exam HPI Terrie Samano is a 89 year old female who presents here today for 6 month follow up. Chronic falls. Uses Rolator. Is now residing at [facility]. She left [facility] because they wanted her to be in half-way due to her chronic falls and pt refused. Saw Yelitza Samayoa in February for Bacterial Pneumonia. Is still coughing. Finished Tessalon perles. Had CXR done 04/12/25 that still showed slight change in RLL No bowel or GI. Follows with Urologist, Dr. Mullen. Uses depends and puts pad down on bed due to night time accidents. Reports no day time accidents. Has overactive bladder and urinary incontinence. Taking Gemtesa 75 mg daily. Edema/DVT: taking Eliquis 5 mg BID and Lasix 20 mg. Lipid: Tries to watch her diet. [facility] does have a set diet plan there, but you can pick other options. Is currently doing PT and they are challenging her. Does do some stretching. Taking Pravastatin 20 mg daily and ASA 81 mg daily. HTN: Does not check BP at home, but the Nurses at [facility] do check her when an incident occurs. no chest pains, dizziness, or shortness of breath. Taking Losartan 100 mg daily and Cardizem 120 mg daily Depression/AGUILAR: Taking Zoloft 50 mg 2 pills once daily. Overall doing pretty well on this regimen. Pain: Chronic back pain and arthritis pain. Takes Gabapentin 300 mg once daily. Does do exercises to help with pain in her back and neck. Receives injections by Dr. Leger in her shoulders and previously in her neck and back. Does do exercises for her back/neck. Past medical history, appointments, medications, allergies reviewed. Previous Medical History PAST MEDICAL HISTORY Diagnosis Date Chronic back pain Followed by Dr. Ventura Macular degeneration Mixed hyperlipidemia Hyperlipidemia PMH - [...] on File Prior to Visit Medication Sig magnesium hydroxide (MILK OF MAGNESIA) 400 mg/5 mL suspension Take 30 mL by mouth once daily as needed. loperamide (IMODIUM) 2 mg cap(s) Take 1 capsule by mouth four times a day as needed. sertraline (ZOLOFT) 50 mg tablet Take 2 tablets by mouth once daily. gabapentin (NEURONTIN) 300 mg capsule Take 1 capsule by mouth once daily for 7 days. benzonatate (TESSALON PERLE) 100 mg capsule Take 1 capsule by mouth three times a day as needed for cough. losartan (COZAAR) 100 mg tablet Take 1 tablet by mouth once daily. pravastatin (PRAVACHOL) 20 mg tablet Take 1 tablet by mouth once daily. benzonatate (TESSALON PERLE) 100 mg capsule Take 1 capsule by mouth three times a day as needed. nystatin (MYCOSTATIN) cream Apply to affected area once daily as needed. ferrous sulfate 325 mg (65 mg iron) tablet Take 1 tablet by mouth once daily. dilTIAZem CD (CARDIZEM CD) 120 mg 24 hr capsule Take 1 capsule by mouth once daily. vibegron (GEMTESA) 75 mg tablet Take 1 [...] Never Smokeless tobacco: Never Vaping Use Vaping status: Never Used Substance Use Topics Alcohol use: No Drug use: No EXAM: BP 110/70 Pulse 80 Resp 16 Wt 68.4 kg (150 lb 12.7 oz) SpO2 98% BMI 32.63 kg/m? General Appearance: Well appearing, alert, in no acute distress, well-hydrated, well nourished.. Lungs: Lungs clear to auscultation. No wheezing, rhonchi, rales.. Heart: RRR with systolic murmur. [employer] Maintenance List Medicare Annual Wellness V (more content not included)... [facility] 04-16-2025 Telephone encounter Note Patient was made aware of the results. Patient verbalizes understanding. She denies any cough or congestion Lupe Velasco Ma [facility] 04-16-2025 Miscellaneous Notes Patient was made aware of the results. Patient verbalizes understanding. She denies any cough or congestion Lupe Velasco Ma Xray still showing slight change in RLL. Is she still having any cough or congestion? If not, call if occurs. Recheck xray in a few weeks documented in this encounter [facility] 04-16-2025 Telephone encounter Note Noted I agree with the plan as outlined Jordan Landon MD [facility] 04-16-2025 Miscellaneous Notes Noted I agree with the plan as outlined Jordan Landon MD Peri from [facility] Home [facility] calling with OT plan of care, 2 visits weekly for 1 week, then 1 visit weekly for 1 week, then 2 visits weekly for 2 weeks, then 1 visit weekly for 1 week, working on fall prevention with activities. No need for return call. documented in this encounter [facility] 04-16-2025 Telephone encounter Note Peri from [facility] Home [facility] calling with OT plan of care, 2 visits weekly for 1 week, then 1 visit weekly for 1 week, then 2 visits weekly for 2 weeks, then 1 visit weekly for 1 week, working on fall prevention with activities. No need for return call. [facility] 04-13-2025 Telephone encounter Note Xray still showing slight change in RLL. Is she still having any cough or congestion? If not, call if occurs. Recheck xray in a few weeks [facility] 04-12-2025 History of Present illness Narrative Radiology Service Progress Note PATIENT NAME: Terrie Samano DATE OF SERVICE: April 12, 2025 TIME: 9:51 AM PATIENT IDENTITY VERIFICATION COMPLETED USING TWO (2) IDENTIFIERS: Name and Date of confirmed by patient verbally. FALL SCREENING: Has the patient had 2 falls in the last year or 1 fall with injury or currently using an Ambulatory Assistive Device (Walker, Cane, Wheelchair, Crutches, etc.)? Yes, Patient High Risk for Falls What interventions were put in place to prevent falls during this visit? Offered Assistance with Transfers/Clothing and did ditting in chair PATIENT GENDER DATA: Assigned female at . status: : No status: NO. PATIENT RELEVANT IMPLANT DATA REVIEWED: Not Applicable PATIENT PRESENTS WITH AN IMPLANTABLE OR ATTACHED LABORATORY MILLER: No RADIOLOGY DEPARTMENT: General X-ray: Exam(s) Completed: Chest X-Ray PERIPHERAL IV DATA: Not applicable SIGNED BY: RT Janna(R) April 12, 2025 9:51 AM documented in this encounter [facility] 04-12-2025 Note HNO ID: [id number] Author: FILIBERTO DE LA O RT(R) Service: Radiology Author Type: Technologist Type: Progress Notes Filed: 04/12/2025 10:05 Note Text: Radiology Service Progress Note PATIENT NAME: Terrie Samano DATE OF SERVICE: April 12, 2025 TIME: 9:51 AM PATIENT IDENTITY VERIFICATION COMPLETED USING TWO (2) IDENTIFIERS: Name and Date of confirmed by patient verbally. FALL SCREENING: Has the patient had 2 falls in the last year or 1 fall with injury or currently using an Ambulatory Assistive Device (Walker, Cane, Wheelchair, Crutches, etc.)? Yes, Patient High Risk for Falls What interventions were put in place to prevent falls during this visit? Offered Assistance with Transfers/Clothing and did ditting in chair PATIENT GENDER DATA: Assigned female at . status: : No status: NO. PATIENT RELEVANT IMPLANT DATA REVIEWED: Not Applicable PATIENT PRESENTS WITH AN IMPLANTABLE OR ATTACHED LABORATORY MILLER: No RADIOLOGY DEPARTMENT: General X-ray: Exam(s) Completed: Chest X-Ray PERIPHERAL IV DATA: Not applicable SIGNED BY: RT Janna(R) April 12, 2025 9:51 AM [facility] 04-11-2025 Telephone encounter Note Noted Jordan Landon MD [facility] 04-11-2025 Miscellaneous Notes Noted Jordan Landon MD Sean PT calling from [facility] to report plan of care for patient and PT will visit patient 1 time a week for four weeks. PT will work with patient on functional mobility. Sean reports that the only discrepancy with medication list is patient takes milk of magnesia and loperamide prn and it is not on our list. Added medications as med update for review. No call back needed unless provider has questions. Alison Paul RN documented in this encounter [facility] 04-11-2025 Telephone encounter Note Sean PT calling from [facility] to report plan of care for patient and PT will visit patient 1 time a week for four weeks. PT will work with patient on functional mobility. Sean reports that the only discrepancy with medication list is patient takes milk of magnesia and loperamide prn and it is not on our list. Added medications as med update for review. No call back needed unless provider has questions. Alison Paul RN [facility] 04-10-2025 Telephone encounter Note Vonda with [facility] calls to report OT and PT will start care on 04/11/25. Sheila Mahan LPN [facility] 04-10-2025 Miscellaneous Notes Vonda with [facility] calls to report OT and PT will start care on 04/11/25. Sheila Mahan LPN documented in this encounter [facility] 04-09-2025 Telephone encounter Note Vonda with [facility] calls to report they received PT/OT eval orders and are requesting most recent OV notes be faxed to them. Faxed to [phone] per request. Alison Paul RN [facility] 04-09-2025 Miscellaneous Notes Vonda with [facility] calls to report they received PT/OT eval orders and are requesting most recent OV notes be faxed to them. Faxed to [phone] per request. Alison Paul RN documented in this encounter [facility] 04-03-2025 Telephone encounter Note Orders printed and faxed to [facility]. Citlalli Brown MA [facility] 04-03-2025 Miscellaneous Notes Orders printed and faxed to [facility]. Citlalli Brown MA Order filed; may print and fax as requested Jordan Landon MD [facility] sends fax asking for PT/OT order be sent to [facility]. Pt continues to fall, very unsteady gait, PT would be beneficial. See fax on provider's desk. Citlalli Brown MA documented in this encounter [facility] 04-03-2025 Telephone encounter Note Order filed; may print and fax as requested Jordan Landon MD [facility] 04-03-2025 Telephone encounter Note [facility] sends fax asking for PT/OT order be sent to [facility]. Pt continues to fall, very unsteady gait, PT would be beneficial. See fax on provider's desk. Citlalli Brown MA [facility] 04-02-2025 Radiology Diagnostic study note [facility] [address] [place] [address] Spine Cervical without Contras MR#: [id number] Acct: [id number] Name: TERRIE SAMANO Rep #: [id number] : 1935 F 89 From: Marietta Huff MD PCP: Dr. Jordan Landon MD Status: RE G ER Study:Spine Cervical without Contras Date of Exam: 04/02/25 Exam# [id number] Ordering Dr: Nanci Camacho DO PROCEDURE: SPINE CERVICAL WITHOUT CONTRAS 04/02/2025 REASON FOR EXAM: FALL, NECK PAIN TECHNIQUE: Cervical spine CT without contrast. Coronal and Sagittal reconstruction series were provided. One or more dose reduction techniques were used (e.g., Automated exposure control, adjustment of the mA and/or kV according to patient size, use of iterative reconstruction technique RADIATION DOSE SUMMARY: CTDlvol: 20 mGy DLP: 400 mGycm COMPARISON: CT C-spine 09/30/2024. FINDINGS: Alignment: Mild exaggeration of the normal cervical lordosis. No traumatic listhesis. Vertebrae: No acute fracture. Mild multilevel chronic vertebral body height loss. Multilevel degenerative disc disease, posterior disc osteophyte complexes and facet and uncovertebral hypertrophy resulting in mild central and neural foraminal stenosis. Soft Tissues: No prevertebral hematoma. Calcific plaque of the bilateral cervical carotid arteries and visualized aortic arch. CT/Spine Cervical without Contras IMPRESSION: NO ACUTE CERVICAL FRACTURE. DEGENERATIVE CHANGES. Reading Location: [id number] CC: Dr. Jordan Landon MD; Dr. Abdelrahman Camacho DO ~ Bottled Beverage Inspector: Signed [facility] 04-02-2025 Radiology Diagnostic study note [facility] [address] [place] [id number] Brain/Head without Contrast MR#: [id number] Acct: [id number] Name: TERRIE SAMANO Rep #: [id number] : 1935 F 89 From: Marietta Huff MD PCP: Dr. Jordan Landon MD Status: RE G ER Study:Brain/Head without Contrast Date of Exa m: 04/02/25 Exam# [id number] Ordering Dr: Nanci Camacho DO EXAM: BRAIN/HEAD WITHOUT CONTRAST CLINICAL HISTORY: 89 y/o F with FALL, HEAD TRAUMA. COMPARISON: None. TECHNIQUE: Routine CT imaging of the head without IV contrast. Additional multiplanar reformats were obtained. Dose reduction techniques were used including intermediate exposure control (AEC),iterative reconstruction technique, and/or mA and/or KV dose adjustments based on patient's size. FINDINGS: Moderate generalized cerebral volume loss with concordant prominence of the ventricles and subarachnoid spaces. Moderate patchy supratentorial white matter hypodensities. 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 No acute intracranial hemorrhage or herniation. Prior scleral banding. Mucosal thickening of the bilateral maxillary sinuses. Chronic right inferior orbital wall fracture deformity. Trace secretions within the sphenoid sinus. No acute calvarial fracture. Small posterior left scalp hematoma and laceration. CT/Brain/Head without Contrast IMPRESSION: 1. No acute intracranial finding. 2. Small posterior left scalp hematoma and laceration. Reading Location: [id number] CC: Dr. Jordan Landon MD; Dr. Abdelrahman Camacho DO ~ Bottled Beverage Inspector: Signed [facility] 04-02-2025 Telephone encounter Note Form completed and faxed back to number below. Lyn Quick MA [facility] 04-02-2025 Miscellaneous Notes Form completed and faxed back to number below. Lyn Quick MA Office received fax from [place] regarding an incident report, where pt was found on her knee's in her room. Routed incident note to PCP to review. Once reviewed fax back to [place] at [phone]. Lyn Quick MA documented in this encounter [facility] 04-02-2025 Telephone encounter Note Office received fax from [place] regarding an incident report, where pt was found on her knee's in her room. Routed incident note to PCP to review. Once reviewed fax back to [place] at [phone]. Lyn Quick MA [facility] 04-02-2025 Hospital Discharge instructions Additional Instructions Thank you for trusting us with your care today! Imaging of your head and neck are negative for acute traumatic injuries Please keep your wound clean and dry. Please keep it covered for the first 24 hours. You can use your normal hygiene after the first 24 hours [place] should be removed in 7 to 10 days. You will be discharged with removal tool to hopefully have this removed at your half-way. Please take Tylenol (2 pills, 650 mg), ibuprofen (2 pills, 400 mg) every 6 hours as needed for pain and fever control. Please return to the emergency department if your symptoms change or worsen. Specifically develop redness, white-yellow discharge, increasing pain or drainage from the wound. Please follow with your primary care physician for further outpatient evaluation and management. [facility] Work Phone: 03-12-2025 Telephone encounter Note OK to refill as ordered Jordan Landon MD [facility] 03-12-2025 Miscellaneous Notes OK to refill as ordered Jordan Landon MD Prescription Refill Information The patient has been identified by name and date of : Yes Caregiver verified no other encounters exist for this prescription request: Yes Caregiver confirmed with patient/requestor that no other refills are due, in the near future, with this provider at this time: No The last office visit in the department: 02/27/25 Does the patient have a future office visit with this provider/department: Yes Requested Prescriptions Pending Prescriptions Disp Refills gabapentin (NEURONTIN) 300 mg capsule 90 capsule 1 Sig: Take 1 capsule by mouth once daily for 180 days. Citlalli Brown MA March 12, 2025 11:46 AM Patient asking for a refill for a medication that is . Patient is out of medication today. gabapentin (NEURONTIN) 300 mg capsule () Patient last seen 02/27/25 Future visit scheduled: No PHARMACY: [facility] documented in this encounter [facility] 03-12-2025 Telephone encounter Note Prescription Refill Information The patient has been identified by name and date of : Yes Caregiver verified no other encounters exist for this prescription request: Yes Caregiver confirmed with patient/requestor that no other refills are due, in the near future, with this provider at this time: No The last office visit in the department: 02/27/25 Does the patient have a future office visit with this provider/department: Yes Requested Prescriptions Pending Prescriptions Disp Refills gabapentin (NEURONTIN) 300 mg capsule 90 capsule 1 Sig: Take 1 capsule by mouth once daily for 180 days. Citlalli Brown MA [facility] 12, 2025 11:46 AM [facility] 03-12-2025 Telephone encounter Note Patient asking for a refill for a medication that is . Patient is out of medication today. gabapentin (NEURONTIN) 300 mg capsule () Patient last seen 02/27/25 Future visit scheduled: No PHARMACY: [facility] 02-27-2025 Note HNO ID: [id number] Author: YELITZA SAMAYOA APRN.COMMUNITY LIVING SPECIALIST Service: ? Author Type: Nurse Practitioner Type: Progress Notes Filed: 02/27/2025 18:45 Note Text: This is a 89 year old female who presents today with: Terrie is an 89-year-old female presenting for follow-up after being diagnosed with right lower lobe pneumonia. HISTORY OF PRESENT ILLNESS: Pneumonia: - Diagnosed with right lower lobe pneumonia on 02/21 after presenting to urgent care with a cough. - Initiated on Augmentin and doxycycline; has one day remaining of Augmentin and two days remaining of doxycycline. - Medications dispensed by [facility], associated with [facility]. - Reports significant improvement in symptoms. - Minimal cough; denies productive cough, fevers, chills, or dyspnea. PAST MEDICAL HISTORY: PAST MEDICAL HISTORY Diagnosis Date Chronic back pain Followed by Dr. Whitehead Macular degeneration Mixed hyperlipidemia Hyperlipidemia PMH - PAST MEDICAL HISTORY OF 2001 left eye detached retina Unspecified essential hypertension Essential hypertension PAST SURGICAL HISTORY Procedure Laterality Date APPENDECTOMY 12/1962 PAST SURGICAL HISTORY OF cataract sx left eye TONSILLECTOMY AND ADENOIDECTOMY T/A (under age 14 years) TOTAL ABDOMINAL HYSTERECT W/WO RMVL TUBE OVARY 04/07/1978 Hysterectomy, CAROLE ALLERGIES Cough Syrup [Guaifenesin] and Iodine MEDICATIONS Current Outpatient Medications Medication Sig doxycycline (VIBRA-TABS) 100 mg tablet Take 1 tablet by mouth two times a day for 7 days. benzonatate (TESSALON PERLE) 100 mg capsule Take 1 capsule by mouth three times a day as needed for cough. losartan (COZAAR) 100 mg tablet Take 1 tablet by mouth once daily. pravastatin (PRAVACHOL) 20 mg tablet Take 1 tablet by mouth once daily. benzonatate (TESSALON PERLE) 100 mg capsule Take 1 capsule by mouth three times a day as needed. nystatin (MYCOSTATIN) cream Apply to affected area once daily as needed. ferrous sulfate 325 mg (65 mg iron) tablet Take 1 tablet by mouth once daily. gabapentin (NEURONTIN) 300 mg capsule Take 1 capsule by mouth once daily for 180 days. dilTIAZem CD (CARDIZEM CD) 120 mg 24 hr capsule Take 1 capsule by mouth once daily. sertraline (ZOLOFT) 50 mg tablet TAKE 2 TABLETS ONE TIME DAILY vibegron (GEMTESA) 75 mg tablet Take 1 [...] one(1) tablet daily. No current facility-administered medications for this visit. FAMILY HISTORY Problem Relation Age of Onset Hypertension Mother Colon Cancer Mother Hypertension Father Prostate Cancer Father Colon Cancer Sister Diabetes Brother Social History Tobacco Use Smoking status: Never Smokeless tobacco: Never Vaping Use Vaping status: Never Used Substance Use Topics Alcohol use: No Drug use: No REVIEW OF SYSTEMS Constitutional: (-) fever, (-) chills Respiratory: (+) mild cough, (-) sputum, (-) shortness of breath EXAM: BP 113/72 Pulse 82 Resp 16 SpO2 93% PHYSICAL EXAM: General Appearance: Well appearing, alert, in no acute distress, well-hydrated, well nourished.. Skin: Skin color, texture, turgor normal, no suspicious rashes or lesions. Head: Normocephalic, no masses, lesions, tenderness or abnormalities. Eyes: Anicteric sclera.Extraocular movements are intact. . Lungs: Lungs clear to auscultation. No wheezing, rhonchi, rales.. Heart: RRR, + murmur. Neurologic: answers questions appropriately. ASSESSMENT/PLAN 1. Bacterial pneumonia (J15.9) - Diagnosed with right lower lobe pneumonia on February 21 via chest x-ray. - Initiated on Augmentin and doxycycline; discrepancies in duration of doxycycline noted (6 days instead of 7 days). - Contacted [facility] to ensure completion of the full 7-day course of doxycycline. - Significant improvement in symptoms; minimal cough, no sputum production, no fevers, chills, or dyspnea. - Ordered repeat chest x-ray in 2-3 weeks to confirm resolution of pneumonia. - Advised to monitor for any worsening symptoms and report immediately if they occur. Discussed treatment plan and patient voices understanding. Patient's questions answered appropriately. Medications and potential side effects were discussed and patient voices understanding. Return to the office as scheduled or as needed for worsening/no improvement. Yelitza Samayoa APRN.COMMUNITY LIVING SPECIALIST Recording using [email or web address] software for draft documentation of the visit was discussed with the patien (more content not included)... [facility] 02-27-2025 History of Present illness Narrative This is a 89 year old female who presents today with: Terrie is an 89-year-old female presenting for follow-up after being diagnosed with right lower lobe pneumonia. HISTORY OF PRESENT ILLNESS: Pneumonia: - Diagnosed with right lower lobe pneumonia on 02/21 after presenting to urgent care with a cough. - Initiated on Augmentin and doxycycline; has one day remaining of Augmentin and two days remaining of doxycycline. - Medications dispensed by [facility], associated with [facility]. - Reports significant improvement in symptoms. - Minimal cough; denies productive cough, fevers, chills, or dyspnea. PAST MEDICAL HISTORY: PAST MEDICAL HISTORY Diagnosis Date Chronic back pain Followed by Dr. Whitehead Macular degeneration Mixed hyperlipidemia Hyperlipidemia PMH - PAST MEDICAL HISTORY OF 2001 left eye detached retina Unspecified essential hypertension Essential hypertension PAST SURGICAL HISTORY Procedure Laterality Date APPENDECTOMY 12/1962 PAST SURGICAL HISTORY OF cataract sx left eye TONSILLECTOMY & ADENOIDECTOMY <AGE 14 T/A (under age 14 years) TOTAL ABDOMINAL HYSTERECT W/WO RMVL TUBE OVARY 04/07/1978 Hysterectomy, CAROLE ALLERGIES Cough Syrup [Guaifenesin] and Iodine MEDICATIONS Current Outpatient Medications Medication Sig doxycycline (VIBRA-TABS) 100 mg tablet Take 1 tablet by mouth two times a day for 7 days. benzonatate (TESSALON PERLE) 100 mg capsule Take 1 capsule by mouth three times a day as needed for cough. losartan (COZAAR) 100 mg tablet Take 1 tablet by mouth once daily. pravastatin (PRAVACHOL) 20 mg tablet Take 1 tablet by mouth once daily. benzonatate (TESSALON PERLE) 100 mg capsule Take 1 capsule by mouth three times a day as needed. nystatin (MYCOSTATIN) cream Apply to affected area once daily as needed. ferrous sulfate 325 mg (65 mg iron) tablet Take 1 tablet by mouth once daily. gabapentin (NEURONTIN) 300 mg capsule Take 1 capsule by mouth once daily for 180 days. dilTIAZem CD (CARDIZEM CD) 120 mg 24 hr capsule Take 1 capsule by mouth once daily. sertraline (ZOLOFT) 50 mg tablet TAKE 2 TABLETS ONE TIME DAILY vibegron (GEMTESA) 75 mg tablet Take 1 [...] one(1) tablet daily. No current facility-administered medications for this visit. FAMILY HISTORY Problem Relation Age of Onset Hypertension Mother Colon Cancer Mother Hypertension Father Prostate Cancer Father Colon Cancer Sister Diabetes Brother Social History Tobacco Use Smoking status: Never Smokeless tobacco: Never Vaping Use Vaping status: Never Used Substance Use Topics Alcohol use: No Drug use: No REVIEW OF SYSTEMS Constitutional: (-) fever, (-) chills Respiratory: (+) mild cough, (-) sputum, (-) shortness of breath EXAM: BP 113/72 Pulse 82 Resp 16 SpO2 93% PHYSICAL EXAM: General Appearance: Well appearing, alert, in no acute distress, well-hydrated, well nourished.. Skin: Skin color, texture, turgor normal, no suspicious rashes or lesions. Head: Normocephalic, no masses, lesions, tenderness or abnormalities. Eyes: Anicteric sclera.Extraocular movements are intact. . Lungs: Lungs clear to auscultation. No wheezing, rhonchi, rales.. Heart: RRR, + murmur. Neurologic: answers questions appropriately. ASSESSMENT/PLAN 1. Bacterial pneumonia (J15.9) - Diagnosed with right lower lobe pneumonia on February 21 via chest x-ray. - Initiated on Augmentin and doxycycline; discrepancies in duration of doxycycline noted (6 days instead of 7 days). - Contacted [facility] to ensure completion of the full 7-day course of doxycycline. - Significant improvement in symptoms; minimal cough, no sputum production, no fevers, chills, or dyspnea. - Ordered repeat chest x-ray in 2-3 weeks to confirm resolution of pneumonia. - Advised to monitor for any worsening symptoms and report immediately if they occur. Discussed treatment plan and patient voices understanding. Patient's questions answered appropriately. Medications and potential side effects were discussed and patient voices understanding. Return to the office as scheduled or as needed for worsening/no improvement. Yelitza Samayoa APRN.COMMUNITY LIVING SPECIALIST Recording using [email or web address] software for draft documentation of the visit was discussed with the patient/authorized sales utility representative; all questions welcomed and answered. Patient/authorized sales utility representative agreed to proceed [facility]oned [facility]. They are sending [facility] another day's worth (2 tablets) of doxy. August Pro LPN documented in this encounter [facility] 02-27-2025 Telephone encounter Note [facility]oned [facility]. They are sending [facility] another day's worth (2 tablets) of doxy. August Pro LPN [facility] 02-27-2025 Miscellaneous Notes [facility]oned [facility]. They are sending [facility] another day's worth (2 tablets) of doxy. August Pro LPN Can we please call Misael. It looks like she was ordered doxycycline 100 mg BID for 7 days. She showed me the label of the medication received, and it states for 6 days with only 12 dispensed (not 14). This is coming from [facility] (per patient, this is [facility]). documented in this encounter [facility] 02-27-2025 Instructions Yelitza Samayoa APRN.GRAYSON - 02/27/2025 3:43 PM EDT Continue taking both antibiotics as prescribed until the full courses are complete. A repeat chest x-ray is ordered in 2-3 weeks to verify that your pneumonia has completely resolved. You do not need an appointment for this; just follow the scheduling instructions provided when you re ready. Monitor your symptoms. If you experience any worsening, such as increased cough, fever, or shortness of breath, please contact our office. documented in this encounter [facility] 02-27-2025 Note HNO ID: [id number] Author: AUGUST POR LPN Service: ? Author Type: LICENSED NURSE Type: Progress Notes Filed: 02/27/2025 18:45 Note Text: Phoned [facility] pharmacy. They are sending Misael another day's worth (2 tablets) of doxy. August Pro LPN [facility] 02-27-2025 Telephone encounter Note Can we please call Misael. It looks like she was ordered doxycycline 100 mg BID for 7 days. She showed me the label of the medication received, and it states for 6 days with only 12 dispensed (not 14). This is coming from [facility] (per patient, this is [facility]). [facility] Work Phone: 02-21-2025 Note HNO ID: [id number] Author: KEYLA GLOVER APRN.GRAYSON Service: ? Author Type: Nurse Practitioner Type: Progress Notes Filed: 02/21/2025 15:52 Note Text: POST FALL ASSESSMENT PATIENT NAME: Terrie Samano ASSESSMENT DATE: 02/21/2025 ASSESSMENT TIME: 3:33 PM Subjective Brief description of event: Patient was discharged from [facility]. She was ambulating with walker in lobby for her transportation back home. Her bag that was attached to her walker, ultimately became caught on lobby chair and pulled patient down. Fall witnessed: Yes How did fall occur: Ambulating with walker/cane Location of fall: Waiting area/lobby Contributing factors: Patient had her bag hanging off her walker, and it became caught on lobby chair. Medication List: Reviewed Current Outpatient Medications: losartan (COZAAR) 100 mg tablet pravastatin (PRAVACHOL) 20 mg tablet benzonatate (TESSALON PERLE) 100 mg capsule nystatin (MYCOSTATIN) cream ferrous sulfate 325 mg (65 mg iron) tablet gabapentin (NEURONTIN) 300 mg capsule dilTIAZem CD (CARDIZEM CD) 120 mg 24 hr capsule sertraline (ZOLOFT) 50 mg tablet vibegron (GEMTESA) 75 mg tablet acetaminophen (TYLENOL) 325 mg tablet carboxymethylcellulose sodium (REFRESH OPHTHALMIC) triamcinolone (KENALOG) 0.025 % cream vit C/E/Zn/coppr/lutein/zeaxan (PRESERVISION AREDS 2 ORAL) calcium carbonate(CALTRATE 600 600 MG (1,500 MG) TAB) aspirin(ECOTRIN LOW STRENGTH 81 MG TAB) doxycycline (VIBRA-TABS) 100 mg tablet benzonatate (TESSALON PERLE) 100 mg capsule amoxicillin-clavulanate potassium (AUGMENTIN) 875-125 mg per tablet Physical Exam BP 118/66 Pulse 86 Temp 37.4 ?C (99.3 ?F) Resp 18 Wt 70.9 kg (156 lb 4.9 oz) SpO2 94% BMI 33.82 kg/m? Is the Patient Experiencing Pain: No: 0 on a scale of 0 to 10 General appearance: Well appearing, alert, in no acute distress, well-hydrated, well nourished. Skin: Skin color, texture, turgor normal, no suspicious rashes or lesions Head: Normocephalic, no masses, lesions, tenderness or abnormalities Eyes: Anicteric sclera. Pupils are equally round and reactive to light. Extraocular movements are intact. Ears: External ears normal, canals clear Nose/Sinuses: Nares normal, septum midline, mucosa normal, no drainage or sinus tenderness Oropharynx: Lips, mucosa, and tongue normal, teeth and gums normal, oropharynx normal Neck: Supple, no adenopathy; thyroid symmetric, normal size, no bruits Back: Normal exam, no pain to palpation Lungs: Lungs clear to auscultation. No wheezing, rhonchi, rales Heart: RRR without murmur, gallop, or rubs. No ectopy Abdomen: Normal abdominal exam, Abdomen soft, non-tender. Bowel sounds normal. No masses, organomegaly Extremities: No deformities, edema, skin discoloration, clubbing or cyanosis. Good capillary refill. Musculoskeletal: No joint swelling, deformity, or tenderness Peripheral pulses: Normal Neuro: Gait normal. Ambulatory with walker. A AND 0 x 3 Post-Fall Assessment/Plan Fall Injury: No Imaging: Patient declines Labs: Patient declines High Fall Risk Other interventions: Vital signs obtained and blood pressure 128/67 Heart rate 79 Pulse Ox 93% Consults: At 1530 I reached out to ASHLEY Stroud @ [facility]. Discussed what happened. They will provide extra check ins. Patient A AND O x 3 Declines xray and imaging Declines EMS I have fallen so many times, and have so many holes from my head Patient Active Hospital Problem List: No active hospital problems. VTE Prophylaxis: Early Ambulation Family notified by: ASHLEY Stroud @ [facility] SIGNATURE: Keyla Glover APRN.CNP PATIENT NAME: Terrie Samano DATE: 02/21/2025 TIME: 3:33 PM PAGER #: [facility] 02-21-2025 History of Present illness Narrative POST FALL ASSESSMENT PATIENT NAME: Terrie Samano ASSESSMENT DATE: 02/21/2025 ASSESSMENT TIME: 3:33 PM Subjective Brief description of event: [facility]. She was ambulating with walker in lobby for her transportation back home. Her bag that was attached to her walker, ultimately became caught on lobby chair and pulled patient down. Fall witnessed: Yes How did fall occur: Ambulating with walker/cane Location of fall: Waiting area/lobby Contributing factors: Patient had her bag hanging off her walker, and it became caught on lobby chair. Medication List: Reviewed Current Outpatient Medications: losartan (COZAAR) 100 mg tablet pravastatin (PRAVACHOL) 20 mg tablet benzonatate (TESSALON PERLE) 100 mg capsule nystatin (MYCOSTATIN) cream ferrous sulfate 325 mg (65 mg iron) tablet gabapentin (NEURONTIN) 300 mg capsule dilTIAZem CD (CARDIZEM CD) 120 mg 24 hr capsule sertraline (ZOLOFT) 50 mg tablet vibegron (GEMTESA) 75 mg tablet acetaminophen (TYLENOL) 325 mg tablet carboxymethylcellulose sodium (REFRESH OPHTHALMIC) triamcinolone (KENALOG) 0.025 % cream vit C/E/Zn/coppr/lutein/zeaxan (PRESERVISION AREDS 2 ORAL) calcium carbonate(CALTRATE 600 600 MG (1,500 MG) TAB) aspirin(ECOTRIN LOW STRENGTH 81 MG TAB) doxycycline (VIBRA-TABS) 100 mg tablet benzonatate (TESSALON PERLE) 100 mg capsule amoxicillin-clavulanate potassium (AUGMENTIN) 875-125 mg per tablet Physical Exam BP 118/66 Pulse 86 Temp 37.4 C (99.3 F) Resp 18 Wt 70.9 kg (156 lb 4.9 oz) SpO2 94% BMI 33.82 kg/m Is the Patient Experiencing Pain: No: 0 on a scale of 0 to 10 General appearance: Well appearing, alert, in no acute distress, well-hydrated, well nourished. Skin: Skin color, texture, turgor normal, no suspicious rashes or lesions Head: Normocephalic, no masses, lesions, tenderness or abnormalities Eyes: Anicteric sclera. Pupils are equally round and reactive to light. Extraocular movements are intact. Ears: External ears normal, canals clear Nose/Sinuses: Nares normal, septum midline, mucosa normal, no drainage or sinus tenderness Oropharynx: Lips, mucosa, and tongue normal, teeth and gums normal, oropharynx normal Neck: Supple, no adenopathy; thyroid symmetric, normal size, no bruits Back: Normal exam, no pain to palpation Lungs: Lungs clear to auscultation. No wheezing, rhonchi, rales Heart: RRR without murmur, gallop, or rubs. No ectopy Abdomen: Normal abdominal exam, Abdomen soft, non-tender. Bowel sounds normal. No masses, organomegaly Extremities: No deformities, edema, skin discoloration, clubbing or cyanosis. Good capillary refill. Musculoskeletal: No joint swelling, deformity, or tenderness Peripheral pulses: Normal Neuro: Gait normal. Ambulatory with walker. A & 0 x 3 Post-Fall Assessment/Plan Fall Injury: No Imaging: Patient declines Labs: Patient declines High Fall Risk Other interventions: Vital signs obtained and blood pressure 128/67 Heart rate 79 Pulse Ox 93% Consults: At 1530 I reached out to ASHLEY Stroud @ [facility]. Discussed what happened. They will provide extra check ins. Patient A & O x 3 Declines xray and imaging Declines EMS I have fallen so many times, and have so many holes from my head Patient Active Hospital Problem List: No active hospital problems. VTE Prophylaxis: Early Ambulation Family notified by: ASHLEY Stroud @ [facility] SIGNATURE: Keyla Glover APRN.CNP PATIENT NAME: Terrie Samano DATE: 02/21/2025 TIME: 3:33 PM PAGER #: [facility] Subjective Terrie Samano is a 89 year old female. Patient presents with: Chest Congestion: cough x 2 weeks 89 year old female with PMH HTN, hyperlipidemia, OAB, macular degeneration presents for illness. Acute onset 2 weeks ago +cough +productive Denies hemoptysis Denies CP Denies dyspnea Denies abdominal pain Endorses that she recently moved from [facility] for 11 years and She has recently moved to [place] The history is provided by the patient. No microbiology lab analyst was used. Cough This is a new problem. The current episode started more than 1 week ago. The problem occurs constantly. The problem has been gradually worsening. The cough is Productive of sputum. There has been no fever. Associated symptoms include chills and rhinorrhea. Pertinent negatives include no chest pain, no sweats, no weight loss, no ear congestion, no ear pain, no headaches, no sore throat, no myalgias, no shortness of breath, no wheezing and no eye redness. She has tried nothing for the symptoms. The treatment provided no relief. She is not a smoker. Her past medical history does not include bronchitis, pneumonia, bronchiectasis, COPD, emphysema or asthma. PAST MEDICAL HISTORY Diagnosis Date Chronic back pain Followed by Dr. Whitehead Macular degeneration Mixed hyperlipidemia Hyperlipidemia PMH - PAST MEDICAL HISTORY OF 2001 left eye detached retina Unspecified essential hypertension Essential hypertension PAST SURGICAL HISTORY Procedure Laterality Date APPENDECTOMY 12/1962 PAST SURGICAL HISTORY OF cataract sx left eye TONSILLECTOMY & ADENOIDECTOMY <AGE 14 T/A (under age 14 years) TOTAL ABDOMINAL HYSTERECT W/WO RMVL TUBE OVARY 04/07/1978 Hysterectomy, CAROLE ALLERGIES Cough Syrup [Guaifenesin] and Iodine MEDICATIONS losartan (COZAAR) 100 mg tablet Take 1 tablet by mouth once daily. pravastatin (PRAVACHOL) 20 mg tablet Take 1 tablet by mouth once daily. benzonatate (TESSALON PERLE) 100 mg capsule Take 1 capsule by mouth three times a day as needed. nystatin (MYCOSTATIN) cream Apply to affected area once daily as needed. ferrous sulfate 325 mg (65 mg iron) tablet Take 1 tablet by mouth once daily. gabapentin (NEURONTIN) 300 mg capsule Take 1 capsule by mouth once daily for 180 days. dilTIAZem CD (CARDIZEM CD) 120 mg 24 hr capsule Take 1 capsule by mouth once daily. sertraline (ZOLOFT) 50 mg tablet TAKE 2 TABLETS ONE TIME DAILY vibegron (GEMTESA) 75 mg tablet Take 1 [...] 81 MG TAB) Take one(1) tablet daily. doxycycline (VIBRA-TABS) 100 mg tablet Take 1 tablet by mouth two times a day for 7 days. benzonatate (TESSALON PERLE) 100 mg capsule Take 1 capsule by mouth three times a day as needed for cough. amoxicillin-clavulanate potassium (AUGMENTIN) 875-125 mg per tablet Take 1 tablet by mouth two times a day for 5 days. FAMILY HISTORY Problem Relation Age of Onset Hypertension Mother Colon Cancer Mother Hypertension Father Prostate Cancer Father Colon Cancer Sister Diabetes Brother Social History Tobacco Use Smoking status: Never Smokeless tobacco: Never Vaping Use Vaping status: Never Used Substance Use Topics Alcohol use: No Drug use: No Review of Systems Constitutional: Positive for chills. Negative for weight loss. HENT: Positive for rhinorrhea. Negative for ear pain and sore throat. Eyes: Negative for redness. Respiratory: Positive for cough. Negative for shortness of breath and wheezing. Cardiovascular: Negative for chest pain. Musculoskeletal: Negative for myalgias. Neurological: Negative for headaches. Objective BP 118/66 Pulse 86 Temp 37.4 C (99.3 F) Resp 18 Wt 70.9 kg (156 lb 4.9 oz) SpO2 94% BMI 33.82 kg/m Physical Exam Vitals and nursing note reviewed. Constitutional: General: She is not in acute distress. Appearance: Normal appearance. She is normal weight. She is not ill-appearing, toxic-appearing or diaphoretic. HENT: Head: Normocephalic and atraumatic. Right Ear: Ear canal and external ear normal. Left Ear: Ear canal and external ear normal. Nose: Nose normal. No congestion or rhinorrhea. Mouth/Throat: Mouth: Mucous membranes are moist. Pharynx: No oropharyngeal exudate or posterior oropharyngeal erythema. Eyes: General: Right eye: No discharge. Left eye: No discharge. Extraocular Movements: Extraocular movements intact. Conjunctiva/sclera: Conjunctivae normal. Pupils: Pupils are equal, round, and reactive to light. Cardiovascular: Rate and Rhythm: Normal rate and regular rhythm. Pulses: Normal pulses. Heart sounds: Normal heart sounds. No murmur heard. No friction rub. Pulmonary: Effort: Pulmonary effort is normal. No respiratory distress. Breath sounds: Normal breath sounds. No stridor. No wheezing, rhonchi or rales. Chest: Chest wall: No tenderness. Abdominal: General: Abdomen is flat. There is no distension. Palpations: Abdomen is soft. There is no mass. Tenderness: There is no abdominal tenderness. There is no right CVA tenderness, left CVA tenderness, guarding or rebound. Hernia: No hernia is present. Musculoskeletal: General: No swelling, tenderness, deformity or signs of injury. Normal range of motion. Cervical back: Normal range of motion and neck supple. No rigidity. Right lower leg: No edema. Left lower leg: No edema. Lymphadenopathy: Cervical: No cervical adenopathy. Skin: General: Skin is warm and dry. Coloration: Skin is not jaundiced or pale. Findings: No bruising, erythema, lesion or rash. Neurological: General: No focal deficit present. Mental Status: She is alert and oriented to person, place, and time. Cranial Nerves: No cranial nerve deficit. Sensory: No sensory deficit. Motor: No weakness. Coordination: Coordination normal. Gait: Gait normal. Psychiatric: Mood and Affect: Mood normal. Behavior: Behavior normal. Thought Content: Thought content normal. Judgment: Judgment normal. {ASSESSMENT/PLAN: 1. Acute cough - ICD9: 786.2, ICD10: R05.1 (primary diagnosis) X 2 weeks Progressively worsening . - XR CHEST 2V FRONTAL/LAT 2. Bacterial pneumonia - ICD9: 482.9, ICD10: J15.9 CXR reveals right lower lobe pneumonia +effusion At 1510 I spoke with Kiana nurse, @ [place] She is aware of patient diagnosis Aware of medicines ordered and appt made for February 27 at 3pm with Yelitza Discussed red flags Keyla Glover APRN.GRAYSON History and Record Review External record(s) reviewed: prior outpatient record and prior inpatient record. Contributing Factors Chronic conditions affecting care: hypertension Procedures documented in this encounter [facility] 02-21-2025 Instructions Keyla Glover APRN.GRAYSON - 02/21/2025 2:58 PM EDT GENERAL INFORMATION: Pneumonia is a lung infection caused by bacteria, viruses, or bacteria-like germs. It usually cannot be spread to other people. INSTRUCTIONS: 1. If you are given a prescription for antibiotics, take them as ordered by your doctor until they are all gone. 2. Use a cool-mist humidifier or vaporizer to increase air moisture. This will make it easier for you to breathe. Do not use hot steam. 3. Rest in until your temperature is normal (98.6 F or 37 C) and your chest pain and shortness of breath are gone. 4. Slowly restart your normal activities. You may feel weak and tired for up to six weeks. 5. Drink at least one glass of water or other liquid every hour. This will help thin sputum and make it easier to cough up. 6. If you have chest pain, applying a heating pad or warm compresses for 10 to 20 minutes several times a day to the painful area may lessen the pain. 7. Take several deep breaths and then cough frequently during the day. This will help get rid of the infection. 8. You may take medicines that you can buy without a prescription to treat pain and fever. Use cough medicine only if absolutely necessary as coughing helps clear the infection. CONTACT YOUR DOCTOR IF: 1. Your temperature is over 102 F (39 C). 2. Your chest pain, fever or chills do not get better with medicine in 2-3 days. 3. You develop nausea, vomiting or diarrhea. 4. You are coughing up large amounts of bloody sputum. 5. You have any problems that may be related to the medicine that you are taking (such as rash, itching, swelling, or stomach pain). RETURN TO THE EMERGENCY DEPARTMENT IF: 1. You have a lot of trouble breathing or you have dark or bluish fingernails, toenails, or skin. 2. You have a severe headache, neck stiffness, or feel confused. documented in this encounter [facility] 02-21-2025 History of Present illness Narrative Radiology Service Progress Note PATIENT NAME: Terrie Samano DATE OF SERVICE: February 21, 2025 TIME: 2:38 PM PATIENT IDENTITY VERIFICATION COMPLETED USING TWO (2) IDENTIFIERS: Name and Date of confirmed by patient verbally. FALL SCREENING: Has the patient had 2 falls in the last year or 1 fall with injury or currently using an Ambulatory Assistive Device (Walker, Cane, Wheelchair, Crutches, etc.)? Yes, Patient High Risk for Falls What interventions were put in place to prevent falls during this visit? Offered Assistance with Transfers/Clothing and Instructed Patient to Remain Seated (Not on Exam Table) Until Exam PATIENT GENDER DATA: Assigned female at . status: : No status: NO. PATIENT RELEVANT IMPLANT DATA REVIEWED: Not Applicable PATIENT PRESENTS WITH AN IMPLANTABLE OR ATTACHED LABORATORY MILLER: No RADIOLOGY DEPARTMENT: General X-ray: Exam(s) Completed: Chest X-Ray PERIPHERAL IV DATA: Not applicable SIGNED BY: RT Janna(Roberto Carlos) February 21, 2025 2:38 PM documented in this encounter [facility] 02-21-2025 Note HNO ID: [id number] Author: FILIBERTO DE LA O RT(R) Service: Radiology Author Type: Technologist Type: Progress Notes Filed: 02/21/2025 14:50 Note Text: Radiology Service Progress Note PATIENT NAME: Terrie Samano DATE OF SERVICE: February 21, 2025 TIME: 2:38 PM PATIENT IDENTITY VERIFICATION COMPLETED USING TWO (2) IDENTIFIERS: Name and Date of confirmed by patient verbally. FALL SCREENING: Has the patient had 2 falls in the last year or 1 fall with injury or currently using an Ambulatory Assistive Device (Walker, Cane, Wheelchair, Crutches, etc.)? Yes, Patient High Risk for Falls What interventions were put in place to prevent falls during this visit? Offered Assistance with Transfers/Clothing and Instructed Patient to Remain Seated (Not on Exam Table) Until Exam PATIENT GENDER DATA: Assigned female at . status: : No status: NO. PATIENT RELEVANT IMPLANT DATA REVIEWED: Not Applicable PATIENT PRESENTS WITH AN IMPLANTABLE OR ATTACHED LABORATORY MILLER: No RADIOLOGY DEPARTMENT: General X-ray: Exam(s) Completed: Chest X-Ray PERIPHERAL IV DATA: Not applicable SIGNED BY: RT Janna(R) February 21, 2025 2:38 PM [facility] 02-21-2025 Note HNO ID: [id number] Author: KEYLA GLOVER APRN.GRAYSON Service: ? Author Type: Nurse Practitioner Type: Progress Notes Filed: 02/21/2025 15:52 Note Text: [employer] Subjective Terrie Samano is a 89 year old female. Patient presents with: Chest Congestion: cough x 2 weeks 89 year old female with PMH HTN, hyperlipidemia, OAB, macular degeneration presents for illness. Acute onset 2 weeks ago +cough +productive Denies hemoptysis Denies CP Denies dyspnea Denies abdominal pain Endorses that she recently moved from [facility] for 11 years and She has recently moved to [place] The history is provided by the patient. No microbiology lab analyst was used. Cough This is a new problem. The current episode started more than 1 week ago. The problem occurs constantly. The problem has been gradually worsening. The cough is Productive of sputum. There has been no fever. Associated symptoms include chills and rhinorrhea. Pertinent negatives include no chest pain, no sweats, no weight loss, no ear congestion, no ear pain, no headaches, no sore throat, no myalgias, no shortness of breath, no wheezing and no eye redness. She has tried nothing for the symptoms. The treatment provided no relief. She is not a smoker. Her past medical history does not include bronchitis, pneumonia, bronchiectasis, COPD, emphysema or asthma. PAST MEDICAL HISTORY Diagnosis Date Chronic back pain Followed by Dr. Whitehead Macular degeneration Mixed hyperlipidemia Hyperlipidemia PMH - PAST MEDICAL HISTORY OF 2001 left eye detached retina Unspecified essential hypertension Essential hypertension PAST SURGICAL HISTORY Procedure Laterality Date APPENDECTOMY 12/1962 PAST SURGICAL HISTORY OF cataract sx left eye TONSILLECTOMY AND ADENOIDECTOMY T/A (under age 14 years) TOTAL ABDOMINAL HYSTERECT W/WO RMVL TUBE OVARY 04/07/1978 Hysterectomy, CAROLE ALLERGIES Cough Syrup [Guaifenesin] and Iodine MEDICATIONS losartan (COZAAR) 100 mg tablet Take 1 tablet by mouth once daily. pravastatin (PRAVACHOL) 20 mg tablet Take 1 tablet by mouth once daily. benzonatate (TESSALON PERLE) 100 mg capsule Take 1 capsule by mouth three times a day as needed. nystatin (MYCOSTATIN) cream Apply to affected area once daily as needed. ferrous sulfate 325 mg (65 mg iron) tablet Take 1 tablet by mouth once daily. gabapentin (NEURONTIN) 300 mg capsule Take 1 capsule by mouth once daily for 180 days. dilTIAZem CD (CARDIZEM CD) 120 mg 24 hr capsule Take 1 capsule by mouth once daily. sertraline (ZOLOFT) 50 mg tablet TAKE 2 TABLETS ONE TIME DAILY vibegron (GEMTESA) 75 mg tablet Take 1 [...] 81 MG TAB) Take one(1) tablet daily. doxycycline (VIBRA-TABS) 100 mg tablet Take 1 tablet by mouth two times a day for 7 days. benzonatate (TESSALON PERLE) 100 mg capsule Take 1 capsule by mouth three times a day as needed for cough. amoxicillin-clavulanate potassium (AUGMENTIN) 875-125 mg per tablet Take 1 tablet by mouth two times a day for 5 days. FAMILY HISTORY Problem Relation Age of Onset Hypertension Mother Colon Cancer Mother Hypertension Father Prostate Cancer Father Colon Cancer Sister Diabetes Brother Social History Tobacco Use Smoking status: Never Smokeless tobacco: Never Vaping Use Vaping status: Never Used Substance Use Topics Alcohol use: No Drug use: No Review of Systems Constitutional: Positive for chills. Negative for weight loss. HENT: Positive for rhinorrhea. Negative for ear pain and sore throat. Eyes: Negative for redness. Respiratory: Positive for cough. Negative for shortness of breath and wheezing. Cardiovascular: Negative for chest pain. Musculoskeletal: Negative for myalgias. Neurological: Negative for headaches. Objective BP 118/66 Pulse 86 Temp 37.4 ?C (99.3 ?F) Resp 18 Wt 70.9 kg (156 lb 4.9 oz) SpO2 94% BMI 33.82 kg/m? Physical Exam Vitals and nursing note reviewed. Constitutional: General: She is not in acute distress. Appearance: Normal appearance. She is normal weight. She is not ill-appearing, toxic-appearing or diaphoretic. HENT: Head: Normocephalic and atraumatic. Right Ear: Ear canal and external ear normal. Left Ear: Ear canal and external ear normal. Nose: Nose normal. No congestion or rhinorrhea. Mouth/Throat: Mouth: Mucous membranes are moist. Pharynx: No oropharyngeal exudate or posterior oropharyngeal erythema. Eyes: Genera (more content not included)... [facility] 02-13-2025 Telephone encounter Note Upcoming visit. The following approved medication requests have been transmitted electronically. Requested Prescriptions Pending Prescriptions Disp Refills losartan (COZAAR) 100 mg tablet 90 tablet 3 Sig: Take 1 tablet by mouth once daily. pravastatin (PRAVACHOL) 20 mg tablet 90 tablet 3 Sig: Take 1 tablet by mouth once daily. Harry Laura APRN.CNP [facility] 02-13-2025 Miscellaneous Notes Upcoming visit. The following approved medication requests have been transmitted electronically. Requested Prescriptions Pending Prescriptions Disp Refills losartan (COZAAR) 100 mg tablet 90 tablet 3 Sig: Take 1 tablet by mouth once daily. pravastatin (PRAVACHOL) 20 mg tablet 90 tablet 3 Sig: Take 1 tablet by mouth once daily. Hrary Laura APRN.CNP Prescription Refill Information The patient has been identified by name and date of : Yes Caregiver verified no other encounters exist for this prescription request: Yes Caregiver confirmed with patient/requestor that no other refills are due, in the near future, with this provider at this time: Yes The last office visit in the department: 10-05-24 Does the patient have a future office visit with this provider/department: Yes Requested Prescriptions Pending Prescriptions Disp Refills losartan (COZAAR) 100 mg tablet 90 tablet 3 Sig: Take 1 tablet by mouth once daily. pravastatin (PRAVACHOL) 20 mg tablet 90 tablet 3 Sig: Take 1 tablet by mouth once daily. Pat Vidal February 13, 2025 10:36 AM documented in this encounter [facility] 02-13-2025 Telephone encounter Note Prescription Refill Information The patient has been identified by name and date of : Yes Caregiver verified no other encounters exist for this prescription request: Yes Caregiver confirmed with patient/requestor that no other refills are due, in the near future, with this provider at this time: Yes The last office visit in the department: 10-05-24 Does the patient have a future office visit with this provider/department: Yes Requested Prescriptions Pending Prescriptions Disp Refills losartan (COZAAR) 100 mg tablet 90 tablet 3 Sig: Take 1 tablet by mouth once daily. pravastatin (PRAVACHOL) 20 mg tablet 90 tablet 3 Sig: Take 1 tablet by mouth once daily. Pat Vidal February 13, 2025 10:36 AM [facility] 02-08-2025 Telephone encounter Note This has been faxed back to [phone]. Lyn Quick MA [facility] 02-08-2025 Miscellaneous Notes This has been faxed back to [phone]. Lyn Quick MA Noted; continue to monitor Rx for Tessalon sent to [facility] in response to electronic request 02/06 Jordan Landon MD Office received fax from [facility] with Incident note on 02/07/25. Please review and advise. Once advised, fax back to [phone]. Lyn Quick MA Incident: This Nurse called to resident room per aide, stating she was on the floor. Upon entering the room, resident was laying on her back, flat on the floor. She denied any injuries, but said my head did hit the floor, when I fell backwards. Assisted resident up x 2 assists and started neuro's, since she hit her head. She has an abrasion on top of right foot and a small skin tear to mid left [place] area. She was alert and oriented x 3, neuro's and vitals all WNL. Will continue to monitor. Nurse Noemí Serrano LPN. documented in this encounter [facility] 02-08-2025 Telephone encounter Note Noted; continue to monitor Rx for Tessalon sent to [facility] in response to electronic request 02/06 Jordan Landon MD [facility] 02-08-2025 Telephone encounter Note Office [facility] fax [facility] with Incident note on 02/07/25. Please review and advise. Once advised, fax back to [phone]. Lyn Quick MA Incident: This Nurse called to resident room per aide, stating she was on the floor. Upon entering the room, resident was laying on her back, flat on the floor. She denied any injuries, but said my head did hit the floor, when I fell backwards. Assisted resident up x 2 assists and started neuro's, since she hit her head. She has an abrasion on top of right foot and a small skin tear to mid left [place] area. She was alert and oriented x 3, neuro's and vitals all WNL. Will continue to monitor. Nurse Noemí Serrano LPN. [facility] 01-19-2025 Telephone encounter Note Form reviewed by PCP, signed, and faxed back to number below. Lyn Quick MA [facility] 01-19-2025 Miscellaneous Notes Form reviewed by PCP, signed, and faxed back to number below. Lyn Quick MA Office received fax from [facility] with update. Fax back to [phone]. Routed to PCP. Lyn Quick MA Per fax, please note the following progress note from fall this (01/18/25) and return with any N.O. documented in this encounter [facility] 01-19-2025 Telephone encounter Note Office received fax from [facility] with update. Fax back to [phone]. Routed to PCP. Lyn Quick MA Per fax, please note the following progress note from fall this (01/18/25) and return with any N.O. [facility] 01-16-2025 Telephone encounter Note Completed and faxed back. Lyn Quick MA [facility] 01-16-2025 Miscellaneous Notes Completed and faxed back. Lyn Quick MA Office received fax from [facility] requesting order for PT/OT for resident due to continued multiple falls at facility. Fax back to [phone] or [phone]. Lyn Quick MA documented in this encounter [facility] 01-16-2025 Telephone encounter Note Call to pt and LM on VM to return call to office and speak with FM Triage Nurse. Pt scheduled for 01/18 for PT/OT referral. Office received fax from [facility] requesting order. Office wanted to clarify with pt that she did not need an appt as the order was already requested, signed, and sent back, per [facility] request. She is not due for f/u until March. Also call to [facility], wanted to verify they did not advise pt to call and setup appt. Spoke with Roseline, who states that no pt set this up and they thought this was related to a routine visit/follow up. Roseline spoke with patient (at lunch) and pt told her this to obtain orders for PT. Roseline advised pt this has already been completed and an appt is not needed and the appt would be cancelled. Roseline updated this MA, that the appt is not needed and okay to cancel appt. Updated Roseline, that appt would be cancelled, she has routine visit in March and to have pt disregard VM that was left for her since this was pertaining to the the orders for PT. Roseline understood. Lyn Quick MA [facility] 01-16-2025 Miscellaneous Notes Call to pt and LM on VM to return call to office and speak with FM Triage Nurse. Pt scheduled for 01/18 for PT/OT referral. Office received fax from [facility] requesting order. Office wanted to clarify with pt that she did not need an appt as the order was already requested, signed, and sent back, per [facility] request. She is not due for f/u until March. Also call to [facility], wanted to verify they did not advise pt to call and setup appt. Spoke with Roseline, who states that no pt set this up and they thought this was related to a routine visit/follow up. Roseline spoke with patient (at lunch) and pt told her this to obtain orders for PT. Roseline advised pt this has already been completed and an appt is not needed and the appt would be cancelled. Roseline updated this MA, that the appt is not needed and okay to cancel appt. Updated Roseline, that appt would be cancelled, she has routine visit in March and to have pt disregard VM that was left for her since this was pertaining to the the orders for PT. Roseline understood. Lyn Quick MA documented in this encounter [facility] 01-15-2025 Telephone encounter Note [facility] order for PT/OT for resident due to continued multiple falls at facility. Fax back to [phone] or [phone]. Lyn Quick MA [facility] 12-25-2024 Miscellaneous Notes Form reviewed by PCP and faxed back to [place] at [phone]. Lyn Quick MA Noted Jordan Landon MD Fax received in office from [facility] regarding pt fall on 12/24/24. Please review note from [place]. Once reviewed will fax back to [phone]. Lyn Quick MA documented in this encounter [facility] 12-25-2024 Telephone encounter Note Form reviewed by PCP and faxed back to [place] at [phone]. Lyn Quick MA [facility] 12-25-2024 Telephone encounter Note Noted Jordan Landon MD [facility] 12-25-2024 Telephone encounter Note Fax received in office from [facility] regarding pt fall on 12/24/24. Please review note from [place]. Once reviewed will fax back to [phone]. Lyn Quick MA [facility] 12-19-2024 Telephone encounter Note This has been completed and faxed back to number below. Lyn Quick MA [facility] 12-19-2024 Miscellaneous Notes This has been completed and faxed back to number below. Lyn Quick MA Noted Jordan Landon MD Office received electronic communication from [facility] regarding pt fall that occurred. Please review incident note from [place] Nurse. Once reviewed, advise. Fax back to [phone] or [phone]. Routed to PCP. Lyn Quick MA documented in this encounter [facility] 12-19-2024 Telephone encounter Note Noted Jordan Landon MD [facility] 12-18-2024 Telephone encounter Note Office received electronic communication from [facility] regarding pt fall that occurred. Please review incident note from [place] Nurse. Once reviewed, advise. Fax back to [phone] or [phone]. Routed to PCP. Lyn Quick MA [facility] 12-15-2024 Telephone encounter Note Form completed and faxed back to number below. Lyn Quick MA [facility] 12-15-2024 Miscellaneous Notes Form completed and faxed back to number below. Lyn Quick MA Office received fax from [facility], requesting PCP to sign pt's DNR and fax back. Routed to PCP to review. Once complete fax back to [phone]. Lyn Quick MA documented in this encounter [facility] 12-14-2024 Telephone encounter Note Office received fax from [facility], requesting PCP to sign pt's DNR and fax back. Routed to PCP to review. Once complete fax back to [phone]. Lyn Quick MA [facility] 11-21-2024 Telephone encounter Note Form completed and faxed back to information below with OV from 09/29/24, per PCP request. Lyn Quick MA [facility] 11-21-2024 Miscellaneous Notes Form completed and faxed back to information below with OV from 09/29/24, per PCP request. Lyn Quick MA Form done, may send with printed copy of 09/29/24 office note Jordan Landon MD Type of letter/form/fax request - Admission forms Form received from fax on 1 floor and placed on MD desk (Dr. Landon) for completion. Completed form needs to be faxed to [place] at [phone] ATTN: Rios Dewitt. Pt will be moving into [place] in [place] on 11/25/24. Route to ID when form completed for processing documented in this encounter [facility] 11-21-2024 Telephone encounter Note Form done, may send with printed copy of 09/29/24 office note Jordan Landon MD [facility] 11-16-2024 Telephone encounter Note Type of letter/form/fax request - Admission forms Form received from fax on 1 floor and placed on MD desk (Dr. Landon) for completion. Completed form needs to be faxed to [place] at [phone] ATTN: Rios Dewitt. Pt will be moving into [place] in [place] on 11/25/24. Route to ID when form completed for processing [facility] 11-14-2024 Telephone encounter Note Faxed back. Citlalli Brown MA [facility] 11-14-2024 Miscellaneous Notes Faxed back. Citlalli Brown MA Noted Jordan Landon MD Office received fax from [facility] regarding patient. Fax back to [facility] after review to [phone]. Lyn Quick MA Fax: Note text: Staff notified Nurse at 0630 that resident was sitting on her bedroom floor. Upon entering room, resident was sitting on bedroom floor with legs outstretched in front of her, walker within reach. Resident stated she was standing up getting clothing for breakfast, and while leaning over she started to lose her balance, grabbed a hold of her walked and it tipped over ending with her on the floor. Hit her right upper arm on her chair during fall. Abrasion noted to right knee, but uncertain if that is new or not. Denied hitting head. Stated that she fell around 6am, but could not get her call pendent to work, this nurse tested it x3 and worked fine each time. Vitals BP 160/82, P: 86, R:20, T: 97.8 (forehead), Sp02: 93% RA. PERRLA. ROM equal per usual x 4 extremities, was assisted to stand x 2 assist with FWB. Bruised noted to right upper arm with some swelling, reddened area to right knee. No other bumps/banks/discolorations noted to skin. Ambulated several feet without difficulty or pain. Ice pack offered for arm but stated she would put a pack of peas on her arm if needed after she gets ready for breakfast. Maintenance notified of difficulty with call pendent, new call pendent provided and resident using without difficulty. No needs/wants voiced, will continue to monitor. PCP, AL directed notified of fall. Gian Mahmood. documented in this encounter [facility] 11-14-2024 Telephone encounter Note Noted Jordan Landon MD [facility] 11-14-2024 Telephone encounter Note Office received fax from [facility] regarding patient. Fax back to [facility] after review to [phone]. Lyn Quick MA Fax: Note text: Staff notified Nurse at 0630 that resident was sitting on her bedroom floor. Upon entering room, resident was sitting on bedroom floor with legs outstretched in front of her, walker within reach. Resident stated she was standing up getting clothing for breakfast, and while leaning over she started to lose her balance, grabbed a hold of her walked and it tipped over ending with her on the floor. Hit her right upper arm on her chair during fall. Abrasion noted to right knee, but uncertain if that is new or not. Denied hitting head. Stated that she fell around 6am, but could not get her call pendent to work, this nurse tested it x3 and worked fine each time. Vitals BP 160/82, P: 86, R:20, T: 97.8 (forehead), Sp02: 93% RA. PERRLA. ROM equal per usual x 4 extremities, was assisted to stand x 2 assist with FWB. Bruised noted to right upper arm with some swelling, reddened area to right knee. No other bumps/banks/discolorations noted to skin. Ambulated several feet without difficulty or pain. Ice pack offered for arm but stated she would put a pack of peas on her arm if needed after she gets ready for breakfast. Maintenance notified of difficulty with call pendent, new call pendent provided and resident using without difficulty. No needs/wants voiced, will continue to monitor. PCP, AL directed notified of fall. Nursing - Rachelle Mahmood. [facility] 11-13-2024 Telephone encounter Note Patient calling to state that she plans to move to [facility] in [place], in the near future. Stacey Mueller RN [facility] 11-13-2024 Miscellaneous Notes Patient calling to state that she plans to move to [facility] in [place], in the near future. Stacey Mueller RN documented in this encounter [facility] 11-03-2024 Telephone encounter Note Received fax from [facility] with an update regarding pt. Lyn Quick MA Per Fax: Pt fell this evening (11/02/24). Fell backward, hitting head on floor. Small lump with abrasion noted. Vitals WNL. Neuro checks initiated. PCP reviewed notes and noted. This was faxed back to James Delgado at [phone]. [facility] 11-03-2024 Miscellaneous Notes Received fax from [facility] with an update regarding pt. Lyn Quick MA Per Fax: Pt fell this evening (11/02/24). Fell backward, hitting head on floor. Small lump with abrasion noted. Vitals WNL. Neuro checks initiated. PCP reviewed notes and noted. This was faxed back to Jamesscotty Delgado at [phone]. documented in this encounter [facility] 11-02-2024 Telephone encounter Note Order faxed to James Delgado. Citlalli Brown MA [facility] 11-02-2024 Miscellaneous Notes Order faxed to James Delgado. Citlalli Brown MA OK to fax orders that were previously placed for CBC and iron levels; she may get them done next week Jordan Landon MD Patient calling PCP wanted lab work done one month after starting the iron rx which was ordered on 10/03/2024. Patient said she never got the medication started until after xmas due to it coming from mail away pharmacy, thinks she started rx on 10/19/2024. Patient asking when did PCP want to the labs done now? Patient asking for lab orders to be faxed to [facility] Delgado so could be drawn out there. Please advise documented in this encounter [facility] 11-02-2024 Telephone encounter Note OK to fax orders that were previously placed for CBC and iron levels; she may get them done next week Jordan Landon MD [facility] 11-02-2024 Telephone encounter Note Patient calling PCP wanted lab work done one month after starting the iron rx which was ordered on 10/03/2024. Patient said she never got the medication started until after xmas due to it coming from mail away pharmacy, thinks she started rx on 10/19/2024. Patient asking when did PCP want to the labs done now? Patient asking for lab orders to be faxed to [facility] Delgado so could be drawn out there. Please advise [facility] 10-24-2024 Telephone encounter Note OK to refill as ordered Jordan Landon MD [facility] 10-24-2024 Miscellaneous Notes OK to refill as ordered Jordan Landon MD Prescription Refill Information The patient has been identified by name and date of : Yes Caregiver verified no other encounters exist for this prescription request: Yes Caregiver confirmed with patient/requestor that no other refills are due, in the near future, with this provider at this time: Yes The last office visit in the department: 10/05/24 Does the patient have a future office visit with this provider/department: Yes Requested Prescriptions Pending Prescriptions Disp Refills nystatin (MYCOSTATIN) cream 90 g 3 Sig: Apply to affected area once daily as needed. Lissa Berger [facility] October 24, 2024 2:47 PM ' documented in this encounter [facility] 10-24-2024 Telephone encounter Note Prescription Refill Information The patient has been identified by name and date of : Yes Caregiver verified no other encounters exist for this prescription request: Yes Caregiver confirmed with patient/requestor that no other refills are due, in the near future, with this provider at this time: Yes The last office visit in the department: 10/05/24 Does the patient have a future office visit with this provider/department: Yes Requested Prescriptions Pending Prescriptions Disp Refills nystatin (MYCOSTATIN) cream 90 g 3 Sig: Apply to affected area once daily as needed. Lissa Berger [facility] October 24, 2024 2:47 PM ' [facility] 10-19-2024 Telephone encounter Note Noted Jordan Landon MD [facility] 10-19-2024 Miscellaneous Notes Noted Jordan Landon MD Office received fax from [facility] regarding pt fall. Routed to PCP to review. After review fax back to [phone]. Lyn Quick MA documented in this encounter [facility] 10-19-2024 Telephone encounter Note Office received fax from [facility] regarding pt fall. Routed to PCP to review. After review fax back to [phone]. Lyn Quick MA [facility] 10-16-2024 Note HNO ID: [id number] Author: SUBHA NJ MA Service: ? Author Type: Rectifying Attendant Type: Progress Notes Filed: 10/16/2024 16:29 Note Text: REVIEW OF SYSTEMS: General: The patient notes fatigue, notes weight loss, denies weight gain, denies feeling hot, and denies feelings of cold. Eyes: The patient denies glaucoma, denies eye injury/surgery, wears glasses or contacts. Ear/Nose/Throat: The patient notes allergies, denies hayfever, denies ear infections, and denies bloody noses. Cardiovascular: The patient denies chest pain, denies heart disease, notes high blood pressure,denies cardiac stent, denies prior heart attack, denies irregular heart beat, denies high cholesterol, denies poor circulation, denies heart failure, other cardiac issues, denies claudication, denies cold feet, denies peripheral arterial stent. Respiratory: The patient denies tuberculosis, denies pneumonia, denies frequent cough, denies pulmonary embolism, denies shortness of breath, and denies coughing up blood. Gastrointestinal: The patient denies difficulty swallowing, denies acid reflux, denies ulcers, denies vomiting, denies jaundice/hepatitis, denies gallbladder problems, denies black or tarry stools, denies hemorrhoids, denies bleeding from rectum, denies diverticulitis, denies constipation, denies diarrhea, denies loss of stool control, and denies hernias. Kidney/Bladder: The patient denies kidney stones, denies urine infections, and denies bloody urine. Skin: The patient denies a history of skin cancer, denies bleeding/changing moles, and denies a history of skin rash. Neurologic: The patient denies a history of epilepsy/convulsions, denies headaches, denies head/spinal injuries, and denies stroke/TIA. Psychiatric: The patient denies psychiatric medications, denies depression, and denies voices, denies substance abuse. Endocrine: The patient denies thyroid disorders, denies diabetes, and denies hormonal problems. Hematologic: The patient denies a history of bruising, denies bleeding, and denies anemia, denies blood clots. Infections: The patient denies a history of measles and mumps, denies rheumatic fever, and denies sexually transmitted diseases. Musculoskeletal: The patient denies back pain/injury, denies back problems, denies sciatica, denies knee/foot trouble, denies arthritis, or denies gout. When was patient's last Mammogram screening? unknown Last Colonoscopy: unknown Subha Nj MA [facility] 10-16-2024 History of Present illness Narrative REVIEW OF SYSTEMS: General: The patient notes fatigue, notes weight loss, denies weight gain, denies feeling hot, and denies feelings of cold. Eyes: The patient denies glaucoma, denies eye injury/surgery, wears glasses or contacts. Ear/Nose/Throat: The patient notes allergies, denies hayfever, denies ear infections, and denies bloody noses. Cardiovascular: The patient denies chest pain, denies heart disease, notes high blood pressure,denies cardiac stent, denies prior heart attack, denies irregular heart beat, denies high cholesterol, denies poor circulation, denies heart failure, other cardiac issues, denies claudication, denies cold feet, denies peripheral arterial stent. Respiratory: The patient denies tuberculosis, denies pneumonia, denies frequent cough, denies pulmonary embolism, denies shortness of breath, and denies coughing up blood. Gastrointestinal: The patient denies difficulty swallowing, denies acid reflux, denies ulcers, denies vomiting, denies jaundice/hepatitis, denies gallbladder problems, denies black or tarry stools, denies hemorrhoids, denies bleeding from rectum, denies diverticulitis, denies constipation, denies diarrhea, denies loss of stool control, and denies hernias. Kidney/Bladder: The patient denies kidney stones, denies urine infections, and denies bloody urine. Skin: The patient denies a history of skin cancer, denies bleeding/changing moles, and denies a history of skin rash. Neurologic: The patient denies a history of epilepsy/convulsions, denies headaches, denies head/spinal injuries, and denies stroke/TIA. Psychiatric: The patient denies psychiatric medications, denies depression, and denies voices, denies substance abuse. Endocrine: The patient denies thyroid disorders, denies diabetes, and denies hormonal problems. Hematologic: The patient denies a history of bruising, denies bleeding, and denies anemia, denies blood clots. Infections: The patient denies a history of measles and mumps, denies rheumatic fever, and denies sexually transmitted diseases. Musculoskeletal: The patient denies back pain/injury, denies back problems, denies sciatica, denies knee/foot trouble, denies arthritis, or denies gout. When was patient's last Mammogram screening? unknown Last Colonoscopy: unknown Subha Nj MA HISTORY AND PHYSICAL Terrie Samano : 1935 REFERRING PHYSICIAN: Jordan Landon [address] [facility] [address] CHIEF COMPLAINT: Patient presents with: Anemia HPI: Terrie is a 89 year old female referred for endoscopy. Terrie notes + occult blood in stool. Recently started on iron. Terrie denies abdominal pain.. Terrie denies diarrhea. Terrie notes recent history of constipation. -notes this morning her stool was hard like little rocks and dark Terrie denies a change in bowel habits. Terrei denies melena. Terrie denies bright red blood per rectum. Terrie denies hemorrhoids. Terrie denies heartburn. Terrie denies dysphagia. Terrie denies a history of ulcers/ peptic ulcer disease. Terrie notes family history of colon issues. Mother & sister with colon cancer Terrie's medical hx is significant for HTN, HLD, left ventricular hypertrophy, hx of DVT Terrie has had multiple falls- upwards to 19 while living in assisted living. She uses a walker to get around and a rollator to get in and out of bed. She is extremely unsteady on her feet with her most recent fall 2 days ago. Discussion of moving to the half-way has been started but the patient is reluctant. She has already completed PT/OT with no improvement in her mobility. Terrie has undergone prior endoscopy. Last one was >10 years ago. Current Outpatient Medications Medication Sig ferrous sulfate 325 mg (65 mg iron) tablet Take 1 tablet by mouth once daily. gabapentin (NEURONTIN) 300 mg capsule Take 1 capsule by mouth once daily for 180 days. dilTIAZem CD (CARDIZEM CD) 120 mg 24 hr capsule Take 1 capsule by mouth once daily. losartan (COZAAR) 100 mg tablet Take 1 tablet by mouth once daily. nystatin (MYCOSTATIN) cream Apply to affected area once daily as needed. pravastatin (PRAVACHOL) 20 mg tablet Take 1 tablet by mouth once daily. sertraline (ZOLOFT) 50 mg tablet TAKE 2 TABLETS ONE TIME DAILY vibegron (GEMTESA) 75 mg tablet Take 1 tablet by mouth once daily. triamcinolone (KENALOG) 0.025 % cream Apply to affected area twice daily. vit C/E/Zn/coppr/lutein/zeaxan (PRESERVISION AREDS 2 ORAL) Take 1 capsule by mouth twice daily. calcium carbonate(CALTRATE 600 600 MG (1,500 MG) TAB) Take by mouth once daily. aspirin(ECOTRIN LOW STRENGTH 81 MG TAB) Take one(1) tablet daily. acetaminophen (TYLENOL) 325 mg tablet Take 2 tablets by mouth every 6 hours as needed for pain. (Patient taking differently: Take 325 mg by mouth every 6 hours as needed for pain. Patient use ES tylenol 1000 mg po BID routine) carboxymethylcellulose sodium (REFRESH OPHTHALMIC) Use 1 Drop in eyes as needed. No current facility-administered medications for this visit. ALLERGIES: Cough Syrup [Guaifenesin] and Iodine PAST MEDICAL HISTORY Diagnosis Date Chronic back pain Followed by Dr. Whitehead Macular degeneration Mixed hyperlipidemia Hyperlipidemia PMH - PAST MEDICAL HISTORY OF 2001 left eye detached retina Unspecified essential hypertension Essential hypertension PAST SURGICAL HISTORY Procedure Laterality Date APPENDECTOMY 12/1962 PAST SURGICAL HISTORY OF cataract sx left eye TONSILLECTOMY & ADENOIDECTOMY <AGE 14 T/A (under age 14 years) TOTAL ABDOMINAL HYSTERECT W/WO RMVL TUBE OVARY 04/07/1978 Hysterectomy, CAROLE FAMILY HISTORY Problem Relation Age of Onset Hypertension Mother Colon Cancer Mother Hypertension Father Prostate Cancer Father Colon Cancer Sister Diabetes Brother Social History Tobacco Use Smoking status: Never Smokeless tobacco: Never Vaping Use Vaping status: Never Used Substance Use Topics Alcohol use: No Drug use: No REVIEW OF SYMPTOMS: REVIEW OF SYSTEMS: General: The patient + fatigue, + weight loss, denies weight gain, denies feeling hot, and feelings of cold. Eyes: The patient denies glaucoma, denies eye injury/surgery, denies glasses or contacts. Ear/Nose/Throat: The patient + allergies, denies hayfever, denies ear infections, and denies bloody noses. Cardiovascular: The patient denies chest pain, denies heart disease, + high blood pressure, denies high cholesterol, and denies poor circulation. Respiratory: The patient denies tuberculosis, denies pneumonia, denies frequent cough, denies shortness of breath, and denies coughing up blood. Gastrointestinal: The patient denies difficulty swallowing, denies acid reflux, denies ulcers, denies jaundice/hepatitis, denies gallbladder problems, denies vomiting, denies black or tarry stools, denies hemorrhoids, denies bleeding from rectum, denies diverticulitis, denies constipation, denies diarrhea, denies loss of stool control, and denies hernias. Kidney/Bladder: The patient denies kidney stones, denies urine infections, and denies bloody urine. Skin: The patient denies a history of skin cancer, denies bleeding/changing moles, and denies a history of skin rash. Neurologic: The patient denies a history of epilepsy/convulsions, denies headaches, denies head/spinal injuries, and denies stroke/TIA. Psychiatric: The patient denies psychiatric medications, denies depression, and denies voices. Endocrine: The patient denies thyroid disorders, denies diabetes, and denies hormonal problems. Hematologic: The patient denies a history of bruising, denies bleeding, and denies anemia. Infections: The patient denies a history of measles and mumps, denies rheumatic fever, and denies sexually transmitted diseases. Musculoskeletal: The patient denies back pain/injury, denies back problems, denies sciatica, denies knee/foot trouble, denies arthritis, or denies gout. PHYSICAL EXAMINATION: General: The patient is 89 year old, female well nourished, well hydrated in no acute distress. The patient is oriented to time, place, and person. VITALS: Blood pressure 133/74, pulse 98, temperature 37.3 C (99.1 F), height 144.8 cm (4' 9), weight 73 kg (161 lb), SpO2 90%. Body mass index is 34.84 kg/m . HEENT: Normal cephalic, ataumatic, pupils are equally round, sclera are anicteric, mucous membranes are moist, oropharynx is clear. Neck has no masses, asymmetry or lymphadenopathy. Respiratory: Clear to auscultation and percussion. Normal respiratory excursion and pattern. Cardiac: Examination is regular rate and rhythm. Normal S1/S2 Abdominal exam: Soft, nontender, with no palpable masses. No hepatosplenomegaly. No palpable hernias. Extremities: no clubbing, cyanosis or edema. No adenopathy. LABORATORY VALUES: As Noted RADIOLOGIC STUDIES: As Noted Assessment IMPRESSION: anemia, frequent falls, family history of colon cancer PLAN: I have reviewed my findings with the surgeon. Will plan for upper and lower endoscopy. We discussed the risks and benefits of the planned endoscopy. I have informed the patient that complications can occur including failure to complete the endoscopy and perforation. Terrie had the opportunity to ask questions concerning the planned endoscopy. My staff has also explained the procedure to the patient in understandable terms and has given the patient printed material concerning the procedure. Terrie freely consents to surgery. I discussed with Terrie and her family extensively reasons for anemia and occult stool. We discussed the pros and cons of endoscopy in evaluation of the anemia/occult stool. Terrie's sister is concerned about her ability to complete the bowel prep as she is so unsteady on her feet. We discussed the possibility of smoother process if the patient was in a retirement facility. We also discussed what the plan of treatment would be if there were any concerning findings. At this time the family and patient want to discuss proceeding with endoscopy and they will call and let me know if they wish to move forward. I plan to use Miralax bowel preparation I have explained to the patient the difference between IV conscious sedation and MAC anesthesia - and I have offered either, according to the patient's wishes. I have explained that with IV conscious sedation there is no anesthesia provider available and therefore there is a limitation of the amount of IV medications that can be given and that the patient may wake up in the middle of the procedure and/or experience pain/discomfort during the procedure. Further discussion was done and the patient was given the opportunity to ask questions and all questions were answered. Terrie chooses IV conscious sedation/MAC anesthesia.- Pt is appropriate for ASC, however with decreased mobility may be better to be in hospital setting. Terrie was counseled that if there are changes in his/her medical condition, to let the office know if surgery should proceed. If there are changes in patient's medical condition from time of this encounter to the day of the procedure that preclude anesthesia, patient may have procedure cancelled for patient's safety. Diagnoses: (D50.9) Iron deficiency anemia, unspecified iron deficiency anemia type (Z80.0) Family history of colon cancer (R63.4) Weight loss Portions of this documentation were copied and pasted from previous office visit notes in order to provide a cohesive continuity of the history. The note has been reviewed and edited and updated as necessary. Sonya Kenyon APRN.GRAYSON documented in this encounter [facility] 10-16-2024 Note HNO ID: [id number] Author: SONYA KENYON APRN.CNP Service: ? Author Type: Nurse Practitioner Type: Progress Notes Filed: 10/16/2024 16:29 Note Text: HISTORY AND PHYSICAL Terrie Samano : 1935 REFERRING PHYSICIAN: Jordan Landon [address] [facility] [address] CHIEF COMPLAINT: Patient presents with: Anemia HPI: Terrie is a 89 year old female referred for endoscopy. Terrie notes + occult blood in stool. Recently started on iron. Terrie denies abdominal pain.. Terrie denies diarrhea. Terrie notes recent history of constipation. -notes this morning her stool was hard like little rocks and dark Terrie denies a change in bowel habits. Terrie denies melena. Terrie denies bright red blood per rectum. Terrie denies hemorrhoids. Terrie denies heartburn. Terrie denies dysphagia. Terrie denies a history of ulcers/ peptic ulcer disease. Terrie notes family history of colon issues. Mother AND sister with colon cancer Terrie's medical hx is significant for HTN, HLD, left ventricular hypertrophy, hx of DVT Terrie has had multiple falls- upwards to 19 while living in assisted living. She uses a walker to get around and a rollator to get in and out of bed. She is extremely unsteady on her feet with her most recent fall 2 days ago. Discussion of moving to the half-way has been started but the patient is reluctant. She has already completed PT/OT with no improvement in her mobility. Terrie has undergone prior endoscopy. Last one was >10 years ago. Current Outpatient Medications Medication Sig ferrous sulfate 325 mg (65 mg iron) tablet Take 1 tablet by mouth once daily. gabapentin (NEURONTIN) 300 mg capsule Take 1 capsule by mouth once daily for 180 days. dilTIAZem CD (CARDIZEM CD) 120 mg 24 hr capsule Take 1 capsule by mouth once daily. losartan (COZAAR) 100 mg tablet Take 1 tablet by mouth once daily. nystatin (MYCOSTATIN) cream Apply to affected area once daily as needed. pravastatin (PRAVACHOL) 20 mg tablet Take 1 tablet by mouth once daily. sertraline (ZOLOFT) 50 mg tablet TAKE 2 TABLETS ONE TIME DAILY vibegron (GEMTESA) 75 mg tablet Take 1 tablet by mouth once daily. triamcinolone (KENALOG) 0.025 % cream Apply to affected area twice daily. vit C/E/Zn/coppr/lutein/zeaxan (PRESERVISION AREDS 2 ORAL) Take 1 capsule by mouth twice daily. calcium carbonate(CALTRATE 600 600 MG (1,500 MG) TAB) Take by mouth once daily. aspirin(ECOTRIN LOW STRENGTH 81 MG TAB) Take one(1) tablet daily. acetaminophen (TYLENOL) 325 mg tablet Take 2 tablets by mouth every 6 hours as needed for pain. (Patient taking differently: Take 325 mg by mouth every 6 hours as needed for pain. Patient use ES tylenol 1000 mg po BID routine) carboxymethylcellulose sodium (REFRESH OPHTHALMIC) Use 1 Drop in eyes as needed. No current facility-administered medications for this visit. ALLERGIES: Cough Syrup [Guaifenesin] and Iodine PAST MEDICAL HISTORY Diagnosis Date Chronic back pain Followed by Dr. Whitehead Macular degeneration Mixed hyperlipidemia Hyperlipidemia PMH - PAST MEDICAL HISTORY OF 2001 left eye detached retina Unspecified essential hypertension Essential hypertension PAST SURGICAL HISTORY Procedure Laterality Date APPENDECTOMY 12/1962 PAST SURGICAL HISTORY OF cataract sx left eye TONSILLECTOMY AND ADENOIDECTOMY T/A (under age 14 years) TOTAL ABDOMINAL HYSTERECT W/WO RMVL TUBE OVARY 04/07/1978 Hysterectomy, CAROLE FAMILY HISTORY Problem Relation Age of Onset Hypertension Mother Colon Cancer Mother Hypertension Father Prostate Cancer Father Colon Cancer Sister Diabetes Brother Social History Tobacco Use Smoking status: Never Smokeless tobacco: Never Vaping Use Vaping status: Never Used Substance Use Topics Alcohol use: No Drug use: No REVIEW OF SYMPTOMS: REVIEW OF SYSTEMS: General: The patient + fatigue, + weight loss, denies weight gain, denies feeling hot, and feelings of cold. Eyes: The patient denies glaucoma, denies eye injury/surgery, denies glasses or contacts. Ear/Nose/Throat: The patient + allergies, denies hayfever, denies ear infections, and denies bloody noses. Cardiovascular: The patient denies chest pain, denies heart disease, + high blood pressure, denies high cholesterol, and denies poor circulation. Respiratory: The patient denies tuberculosis, denies pneumonia, denies frequent cough, denies shortness of breath, and denies coughing up blood. Gastrointestinal: The patient denies difficulty swallowing, denies acid reflux, denies ulcers, denies jaundice/hepatitis, denies gallbladder problems, denies vomiting, denies black or tarry stools, denies hemorrhoids, denies bleeding from rectum, denies diverticulitis, denies constipation, denies diarrhea, denies loss of stool control, and denies hernias. Kidney/Bladder: The patient denies kidney stones, (more content not included)... [facility] 10-06-2024 Telephone encounter Note Completed by PCP and faxed back. Was discussed with pt during OV. Lyn Quick MA [facility] 10-06-2024 Miscellaneous Notes Completed by PCP and faxed back. Was discussed with pt during OV. Lyn Quick MA Office received fax from James Sidney regarding patient. Please review paperwork and fax back to [phone]. Lyn Quick MA Fax notes that pt fell this afternoon. Resident has had 5 falls within the past 30 days. PT/OT no longer effective, gait very unsteady. Poor safety awareness/decision making for assisted living. DO you recommend transfer to a SNF. Please advise. documented in this encounter [facility] 10-05-2024 Telephone encounter Note Pt called and notified of results and recommendations below from Provider. Pt verbalized understanding and will keep appt as scheduled on 10/16. Lyn Quick MA [facility] 10-05-2024 Miscellaneous Notes Pt called and notified of results and recommendations below from Provider. Pt verbalized understanding and will keep appt as scheduled on 10/16. Lyn Quick MA Please notify patient that her stool test was positive for blood, so she should keep her appt with Dr Lakhani as scheduled Jordan Landon MD documented in this encounter [facility] 10-05-2024 Telephone encounter Note Please notify patient that her stool test was positive for blood, so she should keep her appt with Dr Lakhani as scheduled Jordan Landon MD [facility] 10-05-2024 History of Present illness Narrative Chief Complaint Patient presents with: ED Follow-up: [facility]-fell, laceration to head, required 4 tang HPI Terrie Ramosler is a 89 year old female who presents here today for er follow up. Pt fell and hit head and was evaluated at ER where she received tang to the right side head on 09/30/24. She states she missed the chair when she went to sit down. No LOC. She had CT brain and CT cervical spine done which were negative. Advised to get tang removed in 1 week which [facility] is going to remove. Pt had another fall on Wednesday trying to open her door and fell onto her back. Is not having any pain. [facility] states that she has had 5 falls within the last 30 days. PT/OT are no longer effective, gait very unsteady. She has poor safety awareness/decision making for assisted living. They would like her transferred to retirement facility. Pt states that they have talked to her about moving her to the half-way area but has not been moved yet. Anemia: Will be getting her iron pills from [facility]. Awaiting stool test results. Advised that she will need to see General Surgery for colonoscopy, especially if stool test comes back positive for blood. Strong positive family history of colon cancer. Below copied from Care Everywhere: Chief Complaint: Laceration Narrative Narrative: Patient is an 89-year-old female with history of hypertension hyperlipidemia, who currently is a DNR CC, living in a retirement facility presented to the emergency department after mechanical fall. Patient she was sitting in her chair when the phone rang, she went to reach for her phone falling out striking the back lateral part of her head. Patient does have a 1 cm laceration peer denies any LOC. Patient is currently not on any blood thinning medicine. Patient does have a history of falls. Tetanus vaccination unknown. Treatment and Re-Evaluation :: Differential diagnosis includes however is not limited to: Concussion, intracranial bleeding, skull fracture, simple scalp laceration Patient appears generally well, vital signs are stable, patient is nontoxic-appearing. Presenting to the emergency department complaints of mechanical fall striking the back of her head. Secondary the patient's age, CT scan of the brain, cervical spine will be obtained. I will need to place tang to the laceration to the scalp. All radiologic examinations were read, reviewed by the emergency department attending. From these reads, a plan of care will be put in place. Upon cleansing the wound, using lidocaine with epinephrine, the wound is 1.5 cm in length. The edges approximated nicely. Sterile gloves, sterile drapes were used. I was able to irrigate with 200 cc normal saline. 3 simple tang were placed, edges approximated nicely. Patient currently waiting on the CT scan of the brain as well as her cervical spine. Patient is continually acting appropriate. CT scan of the brain, cervical spine were gross unremarkable. At this time, patient will have these tang removed in 1 week. She will continue to ice the elevated area. She would not get up until she gets help at the nursing facility. Patient is agreeable with this plan. All questions were answered, stable for discharge. <Dr. Torrey Helms, DO - Last Filed: 10/01/24 01:40> [facility] Narrative Medical decision making narrative: Supervisory Physician Note Patient was seen and examined with the Advanced Practice Provider. Nursing notes and vital signs have been reviewed. Pertinent old records have been reviewed. I agree with the essential elements of the ADAM's history, physical exam, assessment, and plan. The differential diagnosis and management options were discussed with the ADAM. I participated in determining and agree with the management, procedures, final impression and disposition as documented. See changes noted by me. Please see addendum or separate note for any additional details. 89-year-old female living in a care facility presents for scalp laceration after mechanical fall. Denies LOC. Not on blood thinners. History of falls. Denies any fever, chills, shortness of breath, chest pain abdominal pain, nausea, vomiting, dysuria. States it was purely mechanical fall. CT head and cervical spine ordered. Laceration was cleaned and repaired by ADAM, see separate procedure note. On chart review, patient was seen on 11/20/2021 for a laceration at that time was given tetanus. Patient is up-to-date on tetanus. CT head and cervical spine without acute traumatic injury. Patient discharged back to care facility. Past medical history, appointments, medications, allergies reviewed. [...] to affected area once daily as needed. pravastatin (PRAVACHOL) 20 mg tablet Take 1 tablet by mouth once daily. sertraline (ZOLOFT) 50 mg tablet TAKE 2 TABLETS ONE TIME DAILY vibegron (GEMTESA) 75 mg tablet Take 1 [...] Never Smokeless tobacco: Never Vaping Use Vaping status: Never Used Substance Use Topics Alcohol use: No Drug use: No EXAM: BP 124/76 Pulse 80 Resp 18 Wt 73.5 kg (162 lb) BMI 30.61 kg/m General Appearance: Well appearing, alert, in no acute distress, well-hydrated, well nourished. and Walker. Head: laceration healing well, healing well, tang not ready to come out yet. Health Maintenance List Advance Directive Discussion due on 10/25/2023 RSV Vaccine(1 - 1-dose 75+ series) due on 09/29/2025 Shingrix Vaccine(1 of 2) due on 09/29/2025 Diabetes Screening due on 09/25/2027 DTaP,Tdap,Td Vaccine(4 - Td or Tdap) due on 11/20/2031 Bone Density Screening Completed Influenza Vaccine Completed Covid-19 Vaccine Completed Pneumococcal Vaccine: 65+ Completed Data reviewed Er reports from [facility] on 09/30/24 ASSESSMENT/PLAN: 1. Fall, initial encounter - ICD9: E888.9, ICD10: W19.XXXA (primary diagnosis) Remove tang in 3-5 days 2. Injury of head, initial encounter - ICD9: 959.01, ICD10: S09.90XA 3. Anemia, unspecified type - ICD9: 285.9, ICD10: D64.9 Start iron therapy 4. Iron deficiency anemia, unspecified iron deficiency anemia type - ICD9: 280.9, ICD10: D50.9 - CONSULT TO GENERAL SURGERY 5. Family history of colon cancer - ICD9: V16.0, ICD10: Z80.0 - CONSULT TO GENERAL SURGERY 6. Weight loss - ICD9: 783.21, ICD10: R63.4 - CONSULT TO GENERAL SURGERY Refer to Surg for consideration for endoscopy Follow up as scheduled. I agree with the Chief Complaint, ROS, and Past Histories independently gathered by the clinical network support specialist and the remaining scribed note accurately describes my personal service to the patient. Medical Decision Making: Problems: Low: Acute, uncomplicated illness or injury Moderate: New problem with uncertain prognosis Risk: Moderate: Drug management Medical Decision Making Level: 4 - Moderate Jordan Landon MD The documentation for this note was completed by Citlalli Brown MA acting as scribe for Jordan Landon MD. October 05, 2024 2:09 PM. Citlalli Brown MA documented in this encounter [facility] 10-05-2024 Note HNO ID: [id number] Author: JORDAN LANDON MD Service: ? Author Type: Physician Type: Progress Notes Filed: 10/05/2024 17:04 Note Text: Chief Complaint Patient presents with: ED Follow-up: [facility]-fell, laceration to head, required 4 tang HPI Terrie Samano is a 89 year old female who presents here today for er follow up. Pt fell and hit head and was evaluated at ER where she received tang to the right side head on 09/30/24. She states she missed the chair when she went to sit down. No LOC. She had CT brain and CT cervical spine done which were negative. Advised to get tang removed in 1 week which [facility] is going to remove. Pt had another fall on Wednesday trying to open her door and fell onto her back. Is not having any pain. [facility] states that she has had 5 falls within the last 30 days. PT/OT are no longer effective, gait very unsteady. She has poor safety awareness/decision making for assisted living. They would like her transferred to retirement facility. Pt states that they have talked to her about moving her to the half-way area but has not been moved yet. Anemia: Will be getting her iron pills from [facility]. Awaiting stool test results. Advised that she will need to see General Surgery for colonoscopy, especially if stool test comes back positive for blood. Strong positive family history of colon cancer. Below copied from Care Everywhere: Chief Complaint: Laceration Narrative Narrative: Patient is an 89-year-old female with history of hypertension hyperlipidemia, who currently is a DNR CC, living in a retirement facility presented to the emergency department after mechanical fall. Patient she was sitting in her chair when the phone rang, she went to reach for her phone falling out striking the back lateral part of her head. Patient does have a 1 cm laceration peer denies any LOC. Patient is currently not on any blood thinning medicine. Patient does have a history of falls. Tetanus vaccination unknown. Treatment and Re-Evaluation :: Differential diagnosis includes however is not limited to: Concussion, intracranial bleeding, skull fracture, simple scalp laceration Patient appears generally well, vital signs are stable, patient is nontoxic-appearing. Presenting to the emergency department complaints of mechanical fall striking the back of her head. Secondary the patient's age, CT scan of the brain, cervical spine will be obtained. I will need to place tang to the laceration to the scalp. All radiologic examinations were read, reviewed by the emergency department attending. From these reads, a plan of care will be put in place. Upon cleansing the wound, using lidocaine with epinephrine, the wound is 1.5 cm in length. The edges approximated nicely. Sterile gloves, sterile drapes were used. I was able to irrigate with 200 cc normal saline. 3 simple tang were placed, edges approximated nicely. Patient currently waiting on the CT scan of the brain as well as her cervical spine. Patient is continually acting appropriate. CT scan of the brain, cervical spine were gross unremarkable. At this time, patient will have these tang removed in 1 week. She will continue to ice the elevated area. She would not get up until she gets help at the nursing facility. Patient is agreeable with this plan. All questions were answered, stable for discharge. MDM MDM Narrative Medical decision making narrative: Supervisory Physician Note Patient was seen and examined with the Advanced Practice Provider. Nursing notes and vital signs have been reviewed. Pertinent old records have been reviewed. I agree with the essential elements of the ADAM's history, physical exam, assessment, and plan. The differential diagnosis and management options were discussed with the ADAM. I participated in determining and agree with the management, procedures, final impression and disposition as documented. See changes noted by me. Please see addendum or separate note for any additional details. 89-year-old female living in a care facility presents for scalp laceration after mechanical fall. Denies LOC. Not on blood thinners. History of falls. Denies any fever, chills, shortness of breath, chest pain abdominal pain, nausea, vomiting, dysuria. States it was purely mechanical fall. CT head and cervical spine ordered. Laceration was cleaned and repaired by ADAM, see separate procedure note. On chart review, patient was seen on 11/20/2021 for a laceration at that time was given tetanus. Patient is up-to-date on tetanus. CT head and cervical spine without acute traumatic injury. Patient discharged back to care facility. Past medical history, appointments, medications, allergies reviewed. Previous Medical History PAST MEDICAL HISTORY Diagnosis Date Chronic back pain Followed by Dr. Whitehead Macular degeneration Mixed hyperlipidemia (more content not included)... [facility] 10-03-2024 Telephone encounter Note Office received fax from James Delgado regarding patient. Please review paperwork and fax back to [phone]. Lyn Quick MA Fax notes that pt fell this afternoon. Resident has had 5 falls within the past 30 days. PT/OT no longer effective, gait very unsteady. Poor safety awareness/decision making for assisted living. DO you recommend transfer to a SNF. Please advise. [facility] 10-03-2024 Telephone encounter Note Pt called and notified of Providers response below and recommendations. Pt has verbalized understanding. Pt has upcoming appt on 10/05 and will discuss further at this time on if further testing is needed. Lyn Quick MA [facility] 10-03-2024 Miscellaneous Notes Pt called and notified of Providers response below and recommendations. Pt has verbalized understanding. Pt has upcoming appt on 10/05 and will discuss further at this time on if further testing is needed. Lyn Quick MA Please notify patient that her lab results do show an iron deficiency anemia. I would suggest starting on iron once daily as ordered, and recheck labs in one month. She may need to see Surgery about getting GI scope done to see if she is losing blood there; I am waiting the result of her stool test to decide this. Jordan Landon MD . documented in this encounter [facility] 10-03-2024 Telephone encounter Note Please notify patient that her lab results do show an iron deficiency anemia. I would suggest starting on iron once daily as ordered, and recheck labs in one month. She may need to see Surgery about getting GI scope done to see if she is losing blood there; I am waiting the result of her stool test to decide this. Jordan Landon MD . [facility] 10-03-2024 Telephone encounter Note Noted Jordan Landon MD [facility] 10-03-2024 Miscellaneous Notes Noted Jordan Landon MD Office received fax with an update from James Delgado Nurse regarding pt on 09/30/24. Routed to PCP. Once reviewed fax back to [phone]. Lyn Quick MA Nurse note 09/30/24 15:01: Note text: Called to room by aide. Found resident lying on her back in her living room, small pool of blood under her head. A&Ox3. Stated she was trying to get to her phone to answer it and lost her balance. Laceration to back of head cleaned, bandage applied, decision made to send to the ER for evaluation. Markus called and here to transport at 2:37 pm. Sister, [employer] Game Machine Inspector, and PCP notified. documented in this encounter [facility] 10-02-2024 Telephone encounter Note Office received fax with an update from [facility] Nurse regarding pt on 09/30/24. Routed to PCP. Once reviewed fax back to [phone]. Lyn Quick MA Nurse note 09/30/24 15:01: Note text: Called to room by aide. Found resident lying on her back in her living room, small pool of blood under her head. A&Ox3. Stated she was trying to get to her phone to answer it and lost her balance. Laceration to back of head cleaned, bandage applied, decision made to send to the ER for evaluation. Markus called and here to transport at 2:37 pm. Sister, [employer] Inspector, and PCP notified. [facility] 09-29-2024 History of Present illness Narrative Chief Complaint Patient presents with: F/U 6 Month HPI Terrie Samano is a 89 year old female who presents here today for 6 month follow up. Resides at [facility]. Pt is involved in a Long Life Study. Uses a walker and a Rolator, has had multiple falls. [facility] reports these to the office. She does not do steps well, she uses a lift to get on and off the bus. Had recent fall while at the [employer] about 3-4 weeks ago. Suffered a laceration near left eye brow and had to have sutures placed. Had imaging completed, showing negative finding. Is doing PT at [facility], which patient states is challenging. No bowel or GI. Follows with Urologist, Dr. Mullen, has upcoming appt in January. She is taking Gemtesa 75 mg daily at supper time. Uses depends and puts pad down on bed due to night time accidents. Reports no day time accidents. Has overactive bladder and urinary incontinence. Depression/AGUILAR: Taking Zoloft 50 mg 2 pills once daily. Overall doing pretty well on this regimen. Notes that PT is wanting her to go through her apartment and get rid of stuff/paperwork she's accumulated. Edema/DVT: taking Eliquis 5 mg BID and Lasix 20 mg. Eliquis was held last visit to see if there would be any improvement in her hemoglobin, was low. Lipid: Tries to watch her diet. [facility] does have a set diet plan there, but you can pick other options. Is currently doing PT and they are challenging her. Does do some stretching. Taking Pravastatin 20 mg daily and ASA 81 mg daily. HTN: Does not check BP at home, but the Nurses at [facility] do check her when an incident occurs. no chest pains, dizziness, or shortness of breath. Taking Losartan 100 mg daily and Cardizem 120 mg daily Pain: Chronic back pain and arthritis pain. Takes Gabapentin 300 mg once daily. Does do exercises to help with pain in her back and neck. Receives injections by Dr. Leger in her shoulders and previously in her neck and back. Does do exercises for her back/neck. Was recently exposed to another resident at [facility] who was sick with the Flu. She was quarantined to her room from 09/21/24 - 09/24/24. She still has symptoms of fatigue, cough and slight sore throat. Is gargling salt water occasionally to help with her sore throat. Wondering if okay to receive a Covid shot today or if she should wait a little longer since she was just ill. HM - Shingles/RSV not covered at the office. Received Flu shot. Asking if she can get Covid vaccine today. Has Adv Dir/Living Will. Past medical history, appointments, medications, allergies reviewed. [...] to affected area once daily as needed. pravastatin (PRAVACHOL) 20 mg tablet Take 1 tablet by mouth once daily. sertraline (ZOLOFT) 50 mg tablet TAKE 2 TABLETS ONE TIME DAILY vibegron (GEMTESA) 75 mg tablet Take 1 [...] Never Smokeless tobacco: Never Vaping Use Vaping status: Never Used Substance Use Topics Alcohol use: No Drug use: No EXAM: BP 124/70 (BP Site: Left Arm, BP Position: Sitting, BP Cuff Size: Regular Adult) Pulse 78 Resp 18 Wt 73.7 kg (162 lb 7.7 oz) BMI 30.70 kg/m General Appearance: Well appearing, alert, in no acute distress, well-hydrated, well nourished.. Lungs: Lungs clear to auscultation. No wheezing, rhonchi, rales.. Heart: RRR without murmur, gallop, or rubs. No ectopy. Health Maintenance List Shingrix Vaccine(1 of 2) Never done RSV Vaccine(1 - 1-dose 75+ series) Never done Advance Directive Discussion due on 10/25/2023 Influenza Vaccine(1) due on 06/25/2024 Covid-19 Vaccine( - season) due on 06/25/2024 Diabetes Screening due on 09/25/2027 DTaP,Tdap,Td Vaccine(4 - Td or Tdap) due on 11/20/2031 Bone Density Screening Completed Pneumococcal Vaccine: 65+ Completed Data reviewed Labs done at [facility] Glucose:101, chol-129, HDL-66, LDL-53, Trig-51 Hgb 9.9 with microcytic indices ASSESSMENT/PLAN: 1. Essential hypertension - ICD9: 401.9, [...] with depression - ICD9: 300.4, ICD10: F41.8 Stable Continue current medications. 4. Primary hyperparathyroidism (HCC) - ICD9: 252.01, ICD10: E21.0 Stable Monitor labs 5. Acute deep vein thrombosis (DVT) of proximal vein of right lower extremity (HCC) - ICD9: 453.41, ICD10: I82.4Y1 6. Right leg swelling - ICD9: 729.81, ICD10: M79.89 7. Chronic back pain, unspecified back location, unspecified back pain laterality - ICD9: 724.5, 338.29, ICD10: M54.9, G89.29 8. Lumbar radiculopathy - ICD9: 724.4, ICD10: M54.16 9. Low hemoglobin - ICD9: 285.9, ICD10: D64.9 Recheck CBC,m with iron studies and iFOBT 10. OAB (overactive bladder) - ICD9: 596.51, ICD10: N32.81 11. Urinary incontinence, unspecified type - ICD9: 788.30, ICD10: R32 12. Encounter for immunization - ICD9: V03.89, ICD10: Z23 - PFIZER-BIONTECH COVID-19 VACCINE AGE 12+ YR (COMIRNATY) 13. Anemia, unspecified type - ICD9: 285.9, ICD10: D64.9 - IRON AND TIBC - IMMUNOCHEMICAL FECAL OCCULT BLOOD TEST - COMPLETE BLOOD COUNT Notify of results and any further testing Follow up in 6 months I agree with the Chief Complaint, ROS, and Past Histories independently gathered by the clinical network support specialist and the remaining scribed note accurately describes my personal service to the patient. Medical Decision Making: Problems: Moderate: New problem with uncertain prognosis and 2+ stable chronic illnesses Data: Unique test result(s) reviewed: 3+ Unique test(s) ordered: 2 Risk: Moderate: Drug management Medical Decision Making Level: 4 - Moderate Jordan Landon MD The documentation for this note was completed by Lyn Quick MA acting as scribe for Jordan Landon MD. September 29, 2024 3:02 PM. Lyn Quick MA documented in this encounter [facility] 09-29-2024 Note HNO ID: [id number] Author: JORDAN LANDON MD Service: ? Author Type: Physician Type: Progress Notes Filed: 09/29/2024 17:27 Note Text: Chief Complaint Patient presents with: F/U 6 Month HPI Terrie Samano is a 89 year old female who presents here today for 6 month follow up. Resides at [facility]. Pt is involved in a Long Life Study. Uses a walker and a Rolator, has had multiple falls. [facility] reports these to the office. She does not do steps well, she uses a lift to get on and off the bus. Had recent fall while at the [employer] shop about 3-4 weeks ago. Suffered a laceration near left eye brow and had to have sutures placed. Had imaging completed, showing negative finding. Is doing PT at [facility], which patient states is challenging. No bowel or GI. Follows with Urologist, Dr. Mullen, has upcoming appt in January. She is taking Gemtesa 75 mg daily at supper time. Uses depends and puts pad down on bed due to night time accidents. Reports no day time accidents. Has overactive bladder and urinary incontinence. Depression/AGUILAR: Taking Zoloft 50 mg 2 pills once daily. Overall doing pretty well on this regimen. Notes that PT is wanting her to go through her apartment and get rid of stuff/paperwork she's accumulated. Edema/DVT: taking Eliquis 5 mg BID and Lasix 20 mg. Eliquis was held last visit to see if there would be any improvement in her hemoglobin, was low. Lipid: Tries to watch her diet. [facility] does have a set diet plan there, but you can pick other options. Is currently doing PT and they are challenging her. Does do some stretching. Taking Pravastatin 20 mg daily and ASA 81 mg daily. HTN: Does not check BP at home, but the Nurses at [facility] do check her when an incident occurs. no chest pains, dizziness, or shortness of breath. Taking Losartan 100 mg daily and Cardizem 120 mg daily Pain: Chronic back pain and arthritis pain. Takes Gabapentin 300 mg once daily. Does do exercises to help with pain in her back and neck. Receives injections by Dr. Leger in her shoulders and previously in her neck and back. Does do exercises for her back/neck. Was recently exposed to another resident at [facility] who was sick with the Flu. She was quarantined to her room from 09/21/24 - 09/24/24. She still has symptoms of fatigue, cough and slight sore throat. Is gargling salt water occasionally to help with her sore throat. Wondering if okay to receive a Covid shot today or if she should wait a little longer since she was just ill. HM - Shingles/RSV not covered at the office. Received Flu shot. Asking if she can get Covid vaccine today. Has Adv Dir/Living Will. Past medical history, appointments, medications, allergies reviewed. [...] to affected area once daily as needed. pravastatin (PRAVACHOL) 20 mg tablet Take 1 tablet by mouth once daily. sertraline (ZOLOFT) 50 mg tablet TAKE 2 TABLETS ONE TIME DAILY vibegron (GEMTESA) 75 mg tablet Take 1 [...] current facility-administered medications on file prior to v (more content not included)... [facility] 09-26-2024 Telephone encounter Note Form faxed. Citlalli Brown MA [facility] 09-26-2024 Miscellaneous Notes Form faxed. Citlalli Brown MA OK for guaifenesin as ordered on form; 200 mg q 6 hr prn Jordan Landon MD Office received fax from [facility] with update regarding pt. Pt c/o of URI symptoms. Requesting Rx for Guaifenesin prn. Routed form to PCP to review and advise. Once reviewed fax back to [phone]. Lyn Quick MA documented in this encounter [facility] 09-26-2024 Telephone encounter Note OK for guaifenesin as ordered on form; 200 mg q 6 hr prn Jordan Landon MD [facility] 09-22-2024 Telephone encounter Note Phoned patient and let her know, I faxed the lab orders to [facility] as she requested. [facility] 09-22-2024 Miscellaneous Notes Phoned patient and let her know, I faxed the lab orders to [facility] as she requested. Orders are already in for CMP, lipid and CBC to be done tomorrow; may fax these orders. Jordan Landon MD Patient states she has 6 month follow up with Dr. Landon on 09/29/24 and asking if provider wishes to order any labs. If so, patient asking if lab orders can be faxed to [facility] at [phone]. Please call patient to update her if labs have been ordered and faxed. Thank you. documented in this encounter [facility] 09-22-2024 Telephone encounter Note Orders are already in for CMP, lipid and CBC to be done tomorrow; may fax these orders. Jordan Landon MD [facility] 09-22-2024 Telephone encounter Note Office received fax from [facility] with update regarding pt. Pt c/o of URI symptoms. Requesting Rx for Guaifenesin prn. Routed form to PCP to review and advise. Once reviewed fax back to [phone]. Lyn Quick MA [facility] 09-19-2024 Telephone encounter Note Patient states she has 6 month follow up with Dr. Landon on 09/29/24 and asking if provider wishes to order any labs. If so, patient asking if lab orders can be faxed to [facility] at [phone]. Please call patient to update her if labs have been ordered and faxed. Thank you. [facility] 09-14-2024 Telephone encounter Note Noted Jordan Landon MD [facility] 09-14-2024 Miscellaneous Notes Noted Jordan Landon MD Office received fax from [facility] with fall report. Routed to PCP's desk to review. Lyn Quick MA Note text: Resident rang call light at 1;40 pm to alert staff she had fallen. Upon entering room, resident was found sitting on buttocks on kitchenette floor with legs outstretched in front of her, walker within reach. Resident stated she was trying to get something out of her bottom cupboard and could not reach it then lost her balance and fell backwards, striking the back of her head on the floor. No other injuries noted/reported. Vitals BP 128/72. P: 86. R - 18. T 97.6 (forehead). O2 - 93% RA. PERRLA. ROM equal per usual x 4 extremities. Small, raised area to back of head, declined offered ice pack. No other bumps/banks/discolorations noted to skin. Was assisted to stand x 2 assist with FWB, ambulated around apartment with walker without pain, unsteady gait per usual. Neuro checks initiated. Encouraged to call for assistance if needing something she cannot reach to prevent further falls. AL director present in apartment, PCP, POA notified of fall. No needs/wants voiced, will continue to monitor. Author: Rachelle Mahmood Nursing, BATCH STILL OPERATOR. documented in this encounter [facility] 09-14-2024 Telephone encounter Note Office received fax from [facility] with fall report. Routed to PCP's desk to review. Lyn Quick MA Note text: Resident rang call light at 1;40 pm to alert staff she had fallen. Upon entering room, resident was found sitting on buttocks on kitchenette floor with legs outstretched in front of her, walker within reach. Resident stated she was trying to get something out of her bottom cupboard and could not reach it then lost her balance and fell backwards, striking the back of her head on the floor. No other injuries noted/reported. Vitals BP 128/72. P: 86. R - 18. T 97.6 (forehead). O2 - 93% RA. PERRLA. ROM equal per usual x 4 extremities. Small, raised area to back of head, declined offered ice pack. No other bumps/banks/discolorations noted to skin. Was assisted to stand x 2 assist with FWB, ambulated around apartment with walker without pain, unsteady gait per usual. Neuro checks initiated. Encouraged to call for assistance if needing something she cannot reach to prevent further falls. AL director present in apartment, PCP, POA notified of fall. No needs/wants voiced, will continue to monitor. Author: Rachelle Mahmood Nursing, BATCH STILL OPERATOR. [facility] 09-01-2024 Telephone encounter Note The following approved medication requests have been transmitted electronically. Requested Prescriptions Pending Prescriptions Disp Refills gabapentin (NEURONTIN) 300 mg capsule 90 capsule 1 Sig: Take 1 capsule by mouth once daily for 180 days. Harry Laura APRN.CNP [facility] 09-01-2024 Miscellaneous Notes The following approved medication requests have been transmitted electronically. Requested Prescriptions Pending Prescriptions Disp Refills gabapentin (NEURONTIN) 300 mg capsule 90 capsule 1 Sig: Take 1 capsule by mouth once daily for 180 days. Harry Laura APRN.CNP Prescription Refill Information The patient has been identified by name and date of : Yes Caregiver verified no other encounters exist for this prescription request: Yes Caregiver confirmed with patient/requestor that no other refills are due, in the near future, with this provider at this time: Yes The last office visit in the department: 03/23/24 Does the patient have a future office visit with this provider/department: Yes Requested Prescriptions Pending Prescriptions Disp Refills gabapentin (NEURONTIN) 300 mg capsule 90 capsule 1 Sig: Take 1 capsule by mouth once daily for 180 days. Savannah Rodriguez September 01, 2024 11:09 AM documented in this encounter [facility] 09-01-2024 Telephone encounter Note Prescription Refill Information The patient has been identified by name and date of : Yes Caregiver verified no other encounters exist for this prescription request: Yes Caregiver confirmed with patient/requestor that no other refills are due, in the near future, with this provider at this time: Yes The last office visit in the department: 03/23/24 Does the patient have a future office visit with this provider/department: Yes Requested Prescriptions Pending Prescriptions Disp Refills gabapentin (NEURONTIN) 300 mg capsule 90 capsule 1 Sig: Take 1 capsule by mouth once daily for 180 days. Savannah Rodriguez September 01, 2024 11:09 AM [facility] 08-17-2024 Telephone encounter Note Noted Jordan Landon MD [facility] 08-17-2024 Miscellaneous Notes Noted Jordan Landon MD Office received fax from [email or web address] in regards to pt on 08/14/24. Routed to PCP to review. Once reviewed fax back to [phone]. Pt update: Notification of a fall this day. No injuries noted. Vitals WNL. Went to sit in a chair, missed the chair, landing on her bottom. Did not hit head. documented in this encounter [facility] 08-17-2024 Telephone encounter Note Office received fax from [facility] in regards to pt on 08/14/24. Routed to PCP to review. Once reviewed fax back to [phone]. Pt update: Notification of a fall this day. No injuries noted. Vitals WNL. Went to sit in a chair, missed the chair, landing on her bottom. Did not hit head. [facility] 07-27-2024 Telephone encounter Note Prescription Refill Information [...] Pat Vidal July 27, 2024 2:26 PM [facility] 07-27-2024 Miscellaneous Notes Prescription Refill Information [...] 2024 2:26 PM documented in this encounter [facility] 06-20-2024 Telephone encounter Note Form faxed back to information below. Lyn Quick MA [facility] 06-20-2024 Miscellaneous Notes Form faxed back to information below. Lyn Quick MA Noted Jordan Landon MD Office received fax from [facility] regarding fall that occurred on 06/18/24 at 4:45 pm. Please review fax. Will fax back PCP's response to [phone]. Lyn Quick MA documented in this encounter [facility] 06-20-2024 Telephone encounter Note Noted Jordan Landon MD [facility] 06-19-2024 Telephone encounter Note Office received fax from [facility] regarding fall that occurred on 06/18/24 at 4:45 pm. Please review fax. Will fax back PCP's response to [phone]. Lny Quick MA [facility] 06-08-2024 Telephone encounter Note PCP reviewed and noted, faxed back to info below. Lyn Quick MA [facility] 06-08-2024 Miscellaneous Notes PCP reviewed and noted, faxed back to info below. Lyn Quick MA Office received fax from [facility] on 06/07/24 regarding pt safety. Routed to PCP to review and note on. Once complete fax back to [facility] at [phone]. Lyn Quick MA Resident rang call light at 0815 [...] continue to monitor. HUGO - Rachelle Mahmood. documented in this encounter [facility] 06-08-2024 Telephone encounter Note Office received fax from [facility] on 06/07/24 regarding pt safety. Routed to PCP to review and note on. Once complete fax back to [facility] at [phone]. Lyn Quick MA Resident rang call light at 0815 [...] continue to monitor. HUGO - Rachelle Mahmood. [facility] 05-02-2024 Telephone encounter Note Paperwork faxed back to [facility] at number below. Lyn Quick MA [facility] 05-02-2024 Miscellaneous Notes Paperwork faxed back to [facility] at number below. Lyn Quick MA Noted; continue to monitor Jordan Landon MD Office received fax from [facility] today. Routed to PCP to review. Once reviewed fax back to [facility] at [phone]. Lyn Quick MA Note text: Resident noted to have [...] continue to monitor. documented in this encounter [facility] 05-02-2024 Telephone encounter Note Noted; continue to monitor Jordan Landon MD [facility] 05-02-2024 Telephone encounter Note Office received fax from [facility] today. Routed to PCP to review. Once reviewed fax back to [facility] at [phone]. Lyn Quick MA Note text: Resident noted to have [...] for further instruction, will continue to monitor. [facility] 05-01-2024 Telephone encounter Note Reviewed and noted by PCP. Faxed back to information below. Lyn Quick MA [facility] 05-01-2024 Miscellaneous Notes Reviewed and noted by PCP. Faxed back to information below. Lyn Quick MA Office received fax from [facility] regarding pt fall. Fax back to [facility] at [phone]. Lyn Quick MA 04/30/24 note text: Another resident alerted [...] per usual. Neuro-checks initiated. PCP and AL unix manager notified, message left with sister. Savannah Guzman Nursing - RN documented in this encounter [facility] 05-01-2024 Telephone encounter Note Office received fax from [facility] regarding pt fall. Fax back to [facility] at [phone]. Lyn Quick MA 04/30/24 note text: Another resident alerted [...] per usual. Neuro-checks initiated. PCP and AL unix manager notified, message left with sister. Savannah Guzman Nursing - RN [facility] 03-30-2024 Telephone encounter Note [facility] sends fax notifying provider that pt had [...] PCP, AL director, Sister Mari notified. Citlalli Brown MA [facility] 03-30-2024 Miscellaneous Notes [facility] sends fax notifying provider that pt had [...] PCP, AL director, Sister Mari notified. Citlalli Brown MA documented in this encounter [facility] 03-23-2024 Instructions Lyn Quick MA - 03/23/2024 3:10 PM EDT Finish current prescription of Eliquis 5 mg 1 tab po bid. No longer need to take this as general prescribing is 3-6 months once diagnosed with a DVT. Update office if having more pain and swelling in the leg. Keep up with the same medications. Continue exercises and stretching. documented in this encounter [facility] 03-23-2024 History of Present illness Narrative Chief Complaint Patient presents with: F/U 6 Month HPI Terrie Samano is a 89 year old female who presents here today for 6 month follow up. Resides at [facility]. Pt feels that it is easier for her to get blood work done at [facility]. Uses a walker and a Rolator, [...] pad. Lipid: Tries to watch her diet. [facility] does have a set diet plan there, but you can pick other options. Does try to do some exercising such as walking. Does do some stretching. Taking Pravastatin 20 mg daily and ASA 81 mg daily. Depression/AGUILAR: Taking Zoloft 50 mg 2 pills once daily. HTN: Denies checking BP, no chest pains, dizziness, or SOB. Notes she had fallen at [facility] and when they checked her vitals her BP was significantly elevated in the 190's/100's. Was sent to ED and admitted for a day then d/c home. Taking Losartan 100 mg daily and Cardizem 120 mg daily. At her visit with Harry Alfonsoil in December he noted heart murmur was auscultated. Echocardiogram was ordered and revealed mild mitral valve stenosis with +1 tricuspid valve regurgitation. DVT/Edema - Pt saw Harry Laura COMMUNITY LIVING SPECIALIST in Oct for Cellulitis of right leg, [...] past year. Prior to being admitted into [facility] she fell 7x. Pt felt she needed to be in Assisted Living due to increased falls and feel safer. Does feel it's better at [facility]. Pt uses a walker when ambulating. [...] Advance Directive Discussion due on 10/25/2023 Covid-19 Vaccine(2022- season) due on 01/20/2024 Diabetes Screening due [...] Past Histories independently gathered by the clinical network support specialist and the remaining scribed note accurately describes my personal service to the patient. Medical Decision Making: Problems: Moderate: 2+ stable chronic illnesses Data: Unique test result(s) reviewed: 3+ Unique test(s) ordered: 3+ Risk: Moderate: Drug management Medical Decision Making Level: 4 - Moderate Jordan Landon MD The documentation for this note was completed by Lyn Quick MA acting as scribe for Jordan Landon MD. March 23, 2024 3:07 PM. Lyn Quick MA documented in this encounter [facility] 03-13-2024 Telephone encounter Note Call to pt and notified her that fasting labs have been ordered and faxed to the number she Provided. Pt verbalized understanding. Lyn Quick MA [facility] 03-13-2024 Miscellaneous Notes Call to pt and notified her that fasting labs have been ordered and faxed to the number she Provided. Pt verbalized understanding. Lyn Quick MA Labs ordered; may fax as requested Jordan Landon MD Pt calls to report she has an appt 03/23 and is asking if provider wants lab work done beforehand. Pt is requesting lab orders be faxed to [facility] @ [phone]. Pt reports this would be helpful so pt would not have to go out to get labs. Sheila Mahan LPN documented in this encounter [facility] 03-13-2024 Telephone encounter Note Labs ordered; may fax as requested Jordan Landon MD [facility] 03-13-2024 Telephone encounter Note Pt calls to report she has an appt 30 and is asking if provider wants lab work done beforehand. Pt is requesting lab orders be faxed to [facility] @ [phone]. Pt reports this would be helpful so pt would not have to go out to get labs. Sehila Mahan LPN [facility] 03-08-2024 Telephone encounter Note The following approved medication requests have been transmitted electronically. Requested Prescriptions Pending Prescriptions Disp Refills sertraline (ZOLOFT) 50 mg tablet [Pharmacy Med Name: SERTRALINE HCL 50 MG Tablet] 180 tablet 3 Sig: TAKE 2 TABLETS ONE TIME DAILY Harry Laura APRN.CNP [facility] 03-08-2024 Miscellaneous Notes The following approved medication requests have been transmitted electronically. Requested Prescriptions Pending Prescriptions Disp Refills sertraline (ZOLOFT) 50 mg tablet [Pharmacy Med Name: SERTRALINE HCL 50 MG Tablet] 180 tablet 3 Sig: TAKE 2 TABLETS ONE TIME DAILY Harry Laura APRN.CNP Patient has been identified by name and date of : Yes, Provider [facility] Date 03/08/2024 Time 1026AM Patient phones for [...] Sofya Mcclure MA. documented in this encounter [facility] 03-08-2024 Telephone encounter Note Patient has been identified by name and date of : Yes, Provider [facility] Date 03/08/2024 Time 1026AM Patient phones for [...] Please advise. Thank you. Sofya Mcclure MA. [facility] 03-06-2024 Telephone encounter Note Pt called and is notified of providers message. Pt voices understanding. Valeria Vanegas RN [facility] 03-06-2024 Miscellaneous Notes Pt called and is notified of providers message. Pt voices understanding. Valeria Vanegas RN Please let her know that we have sent short term and group home medication. The following approved medication requests have been transmitted electronically. Requested Prescriptions Signed Prescriptions Disp Refills gabapentin (NEURONTIN) 300 mg capsule 90 capsule 1 Sig: Take 1 capsule by mouth once daily for 180 days. Authorizing Provider: HARRY LAURA gabapentin (NEURONTIN) 300 mg capsule 14 capsule 0 Sig: Take 1 capsule by mouth daily at bedtime for 14 days. Authorizing Provider: HARRY LAURA APRN.COMMUNITY LIVING SPECIALIST Call to pt, who states that [facility] did not send her refill to her in time and she only has 1 pill left of Gabapentin 300 mg. They are currently processing this to send out, pt will have no refills left on rx, last Rx: 10/14/23 #90 w/1. Asking for new Rx to be sent to [facility], takes one nightly. Asking for short term 2 week supply to go to [facility] until receives Rx from [facility]. Noted request for Eliqudeja, currently this is already in. Update pt once Rx has been sent to [facility], so she can garbage pick up worker. Lyn Quick MA Terrie is calling Jordan Landon MD today with concern regarding Medication Gabapentin. She stated she has only one pill left. [facility] told her it will [...] calling: self Call patient at: on cell [phone] (home) [phone] (cell) Was an appointment scheduled: No Closing statement: Results or non-symptom based questions: Thank you for calling [facility], your call will be returned within the next business day. Lissa Rodriguez documented in this encounter [facility] 03-06-2024 Telephone encounter Note Please let her know that we have sent short term and termite control representative medication. The following approved medication requests have been transmitted electronically. Requested Prescriptions Signed Prescriptions Disp Refills gabapentin (NEURONTIN) 300 mg capsule 90 capsule 1 Sig: Take 1 capsule by mouth once daily for 180 days. Authorizing Provider: HARRY LAURA gabapentin (NEURONTIN) 300 mg capsule 14 capsule 0 Sig: Take 1 capsule by mouth daily at bedtime for 14 days. Authorizing Provider: HARRY LAURA APRN.COMMUNITY LIVING SPECIALIST [facility] 03-06-2024 Telephone encounter Note Call to pt, who states that [facility] did not send her refill to her in time and she only has 1 pill left of Gabapentin 300 mg. They are currently processing this to send out, pt will have no refills left on rx, last Rx: 10/14/23 #90 w/1. Asking for new Rx to be sent to [facility], takes one nightly. Asking for short term 2 week supply to go to [facility] [place] until receives Rx from [facility]. Noted request for Eliquis, currently this is already in. Update pt once Rx has been sent to [facility] [place], so she can garbage pick up worker. Lyn Quick MA [facility] 03-06-2024 Telephone encounter Note Terrie is calling Jordan Landon MD today with concern regarding Medication Gabapentin. She stated she has only one pill left. [facility] told her it will [...] calling: self Call patient at: on cell [phone] (home) [phone] (cell) Was an appointment scheduled: No Closing statement: Results or non-symptom based questions: Thank you for calling [facility], your call will be returned within the next business day. Lissa Berger Pss [facility] 02-17-2024 Telephone encounter Note Noted Jordan Landon MD [facility] 02-17-2024 Miscellaneous Notes Noted Jordan Landon MD Office received fax from [facility] [...] up things off the floor so the corn popper could run the vacuum. Stated she thinks she hit the back of her head on the floor but isn't 100%. Denies any other injury. Vitals completed. Was assisted to stand x 3 assist with FWB. No bumps/banks/discolorations noted to skin. No bumps/redness to head. Ambulated around room without c/o difficulty or pain. Encouraged to call for help when needing to garbage pick up worker things up off the floor, expressed understanding. Neuro check initiated. No needs/wants voiced, will continue to monitor. Sister Mari notified of fall. Rachelle Mahmood LPN. Lyn Quick MA documented in this encounter [facility] 02-17-2024 Telephone encounter Note Office received [...] up things off the floor so the corn popper could run the vacuum. Stated she thinks she hit the back of her head on the floor but isn't 100%. Denies any other injury. Vitals completed. Was assisted to stand x 3 assist with FWB. No bumps/banks/discolorations noted to skin. No bumps/redness to head. Ambulated around room without c/o difficulty or pain. Encouraged to call for help when needing to garbage pick up worker things up off the floor, expressed understanding. Neuro check initiated. No needs/wants voiced, will continue to monitor. Sister Mari notified of fall. Rachelle Mahmood LPN. Lyn Quick MA [facility] 01-10-2024 Miscellaneous Notes The following approved medication requests have been transmitted electronically. Requested Prescriptions Pending Prescriptions Disp Refills nystatin (MYCOSTATIN) cream 30 g 2 Sig: Apply to affected area two times a day for 14 days. Harry Laura APRN.GRAYSON Terrie is calling Jordan Landon MD today to request medication not on her current list. Please send to [facility]. nystatin (MYCOSTATIN) cream 30 g 2 10/14/2023 10/28/2023 Sig: Apply to affected area two times a day for 14 days. Sent to pharmacy as: nystatin (MYCOSTATIN) cream Class: Normal Route: TOPICAL Order: [id number] E-Prescribing Status: Receipt confirmed by pharmacy (10/14/2023 4:59 PM EST) Patient has been identified by name and birthdate. Duration of symptoms: N/A Person calling: self Call patient at: at home [phone] (home) [phone] (cell) Was an appointment scheduled: No Closing statement: Results or non-symptom based questions: Thank you for calling [facility], your call will be returned within the next business day. Lissa Rodriguez documented in this encounter [facility] 12-31-2023 History of Present illness Narrative [...] to 6 months. Has follow-up with Dr. Landon in February. Will continue to at least this time. 2. Nonrheumatic mitral valve stenosis - ICD9: 424.0, ICD10: I34.2 - Stable Harry Laura APRN.CNP This note was partly generated using Dragon voice recognition dictation and may contain some misspelled or inaccurate words missed on review. documented in this encounter [facility] 12-21-2023 Miscellaneous Notes Ok to hold for 2 days per PCP. This was responded to via fax, form faxed. Citlalli Brown Ma Form done Jordan Landon MD Received fax from [facility] asking if pt is ok to stop Eliquis for 2 days prior to procedure. Fax back at [phone]. Citlalli Brown Ma documented in this encounter [facility] 11-25-2023 Miscellaneous Notes Spoke with pt and information listed below given. Pt verbalizes understanding. Apt was changed to December. Asia Sommer LPN Left a message on patient's [...] follow-up. Please cancel December 03 appointment in [facility] scheduled for first week of December. Harry Laura APRN.GRAYSON documented in this encounter [facility] 09-09-2023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 Non-Labored Respiratory Depth Normal Respiratory Pattern Normal Blood Pressure Blood Pressure Mean Pulse Ox 93 88 93 Oxygen Delivery Method Room Air Room Air Nasal Cannula Oxygen Flow Rate (L/min) 1 01/03/23 23:01 01/03/23 23:09 01/04/23 01:20 Temperature 98.5 F Temperature Source Oral Pulse Rate 84 73 Respiratory Rate 15 18 Respiratory Effort Respiratory Depth Respiratory Pattern Blood Pressure 185/95 H 158/81 H Blood Pressure Mean 125 106 Pulse Ox 94 Oxygen Delivery Method Room Air Nasal Cannula Oxygen Flow Rate (L/min) 1 Positive well nourished and well developed Constitutional Narrative: GCS 15. General Appearance ED: well developed and NAD HEENT Reports moist mucous membranes HEENT Narrative: No scalp hematoma or lacerations. No hemotympanums. normocephalic and atraumatic Eyes PERRL, EOMs intact bilaterally and conjunctivae normal General Eye ED: Yes normal appearance of both eyes Neck no lymphadenopathy and supple General: Negative for tenderness Chest Wall inspection of chest normal and palpation of chest normal Chest: Negative for tenderness Resp normal respiratory effort and normal air movement Effort and Inspection: symmetric chest movement; Negative for respiratory distress Cardio regular rate, regular rhythm and no murmurs Peripheral Pulses: pulses 2+ throughout GI normal to inspection, nondistended, normoactive bowel sounds and non-tender Palpation: Negative for guarding or rebound tenderness present Back/Spine no CVA tenderness and no thoracic nor lumbar tenderness Extremity normal to inspection General Extremety ED: Negative for edema or tenderness General Extremity: Negative for edema Neuro oriented x3, CN's II-XII intact bilaterally and no sensory deficits noted Sensorium / Orientation: awake and alert Skin no rashes or lesions noted and no wounds MDM MDM MDM Narrative Medical decision making narrative: Interventions / MDM: Differential diagnosis: Intracranial hemorrhage, closed head injury, elevated blood pressure Diagnosis considered but do not suspect: N/A My EKG interpretation: N/A Imaging independently reviewed and interpreted by myself: Chest x-ray views: Process reporting by radiology more prominent ascending thoracic aorta, however patient denies any chest pains or back pain. External documents reviewed: N/A Test considered but not ordered:N/A ED course: Patient DNR CC confirmed by her. Blood pressure arrival 170/81. Shedenies any hypertensive emergency symptoms. Patient DNR status she is a noted 3GCS 15. Reports head injury. Sent her for CT head and neck for evaluation. 230: Reported me from nursing patient pulse ox dropped down to 88% with good waveform she was placed on 1 L oxygen. She denied dyspnea complaints. Reportedpressure up to 185/95. Patient is not hospice at this time. Therefore we will check labs COVID chest x-ray. Patient be given labetalol. Re-evaluation: Chest x-ray negative. Laboratory studies are all stable. COVID testing negative. Patient ambulated with a walker off oxygen reported dropped down to 88%. She is placed back on 1 L oxygen. She is at assisted living facility. I will discuss with hospitalist service due to her hypoxia. Disposition discussed with patient/family/significant other: Patient Case discussed with consulting clinician: Hospitalist, Dr. Castillo Lab Data Attestation: I reviewed the patient's lab results. Labs: Laboratory Results - last 24 hr 01/03/23 01/03/23 23:48 23:48 WBC 7.6 RBC 3.89 L Hgb 12.5 Hct 37.6 MCV 96.7 MCH 32.1 H MCHC 33.2 RDW Std Deviation 48.8 H RDW Coeff of Dandy 14.5 Plt Count 266 MPV 9.8 Immature Gran % (Auto) 0.100 Neut % (Auto) 67.2 Lymph % (Auto) 20.7 [place] % (Auto) 7.9 Eos % (Auto) 3.1 Baso % (Auto) 1.0 Absolute Neuts (auto) 5.1 Absolute Lymphs (auto) 1.58 Nucleated RBC % 0 Sodium 142 Potassium 4.4 Chloride 108 H Carbon Dioxide 27.0 Anion Gap 7 BUN 31 H Creatinine 0.76 Estim Creat Clear Calc 29.54 Est GFR (MDRD) Af Amer 93 Est GFR (MDRD) Non-Af 77 BUN/Creatinine Ratio 40.9 H Glucose 115 H Calcium 10.3 H Radiography Diagnostic Testing: Clinical Impression(s) from Imaging Studies Brain CT 01/03/23 22:20 IMPRESSION: No acute intracranial abnormality. Mild chronic changes. Mild chronic sinusitis. Left globe postoperative changes. Electronically Signed: Solange Calvert MD at 23:10 EDT , Cervical Spine CT 01/03/23 22:20 IMPRESSION: No acute posttraumatic abnormality. Advanced degenerative changes including high-grade multilevel neural foraminal stenosis. Electronically Signed: Solange Calvert MD at 23:34 EDT , Chest X-Ray 01/04/23 00:00 IMPRESSION: 1. Mildly more prominent appearance of descending thoracic aorta margin compared to old exams back to [address] if there is clinical concern for aortic aneurysm or dissection. 2. Otherwise stable chest. Electronically Signed: Solange Calvert MD at 0:48 EDT , Discharge Plan Dx/Rx/DC Orders Clinical Impression: Fall, Head injury, Elevated blood pressure reading with diagnosis of hypertension, Hypoxia Disposition Disposition: Acute Care Hospital [facility] Discharge Date/Time: 01/04/23 03:06 What to do if you have Problems For any increased pain, shortness of breath, bleeding, nausea or vomiting, chestpain, or any unexpected problems, contact your Primary Care Provider. Call [facility] ([phone]) or report to the closest Emergency Room. Call 911 if necessary. 01/04/23 0726 <Electronically signed by Brennon Hernandez> Cosigner Signature (if applicable): CC: Dr. Jordan Landon MD ~ Signed [facility] Work Phone: [phone] 119-966103-13-2023 History and physical note Author Dr. Castillo [facility] January 04, 2023 2:48am Note Date/Time January 04, 2023 2:1 6am [facility] Medical Records Department [address] [place] [address] History & Physical Exam 01/04/23 0215 MR#: [id number] Acct: [id number] Name: TERRIE SAMANO Rep #:[id number] : 1935 87 From: Destini Castillo MD PCP: Dr. Jordan Landon MD Status:AD M TRAM Location: [facility] [id number] HPI - General General Date of Admission: 01/04/23 Date of Service: 01/04/23 Chief Complaint: Fall. HPI Narrative The patient is an 87 y/o F w/ PMHx: Chronic anemia, Anxiety and Depression, HTN,HLD, Chronic back pain with known spinal stenosis, Fibromyalgia, Obesity who presents to the [facility] ED on 01/04/23 with history of unfortunately falling at approximately 2 PM on day prior to presentation hitting her head on the tank of the commode with no loss of consciousness and only reporting it to nursing in the evening with repeat evaluation at that time with blood pressure with systolic in the 190s prompting transition to the ED for evaluation. She denies any associated headache with her recent fall nor any nausea or emesis. She normally does function with a walker but has been falling frequently including 2 days prior. Work-up in the ED included T98.5, heart 84, BP 185/95, respiratory rate 15, initially reported as 88% on room air improving to 94% on 1 L nasal cannula, CBC with WBC 7.6, hemoglobin 12.5, platelet 266 without marked shift, BMP with chloride 108, BUN/creatinine 31/0.76, glucose 115, calcium 10.3, chest x-ray with mildly more prominent appearance descending thoracic aortic margin compared to 2017 in 2018 otherwise stable chest, COVID rapid antigen negative, CT brain with no acute intracranial abnormality with mild chronic changes, mild chronic sinusitis, evidence postop change left globe, CT cervical spine, with noacute posttraumatic abnormality, advanced degenerative changes including high-grade multilevel neural foraminal stenosis. In the ED patient pulse ox noted todecrease down to 88% therefore she was placed on 1 L nasal cannula with no dyspnea complaints reported. Given the hypoxia prompted ED physician to obtain basic labs/COVID/chest x-ray. In the ED patient ministered labetalol 10 mg IV x1. ED ambulatory pulse oximeter assessment with low of 88% on room air. [facility] Medical History Anxiety and depression Chronic anemia Frequent falls HTN (hypertension) Hyperlipidemia Macular degeneration Obesity Osteoarthritis Spinal stenosis Home Medications aspirin 81 mg tablet,delayed release 81 mg PO DAILY@0800 01/15/17 [History Last Taken Unknown] calcium carbonate 600 mg-vitamin D3 20 mcg (800 unit) tablet (Caltrate with Vitamin D3) 2 ea PO DAILY 01/15/17 [History Last Taken Unknown] gabapentin 100 mg capsule (Neurontin) 300 mg PO DAILY neuropathy 01/15/17 [History Last Taken 06/13/18 06:00] iznbnkrdjcb-sfjgvpqhs-sam C-Mn 500 mg-400 mg capsule 2 ea PO DAILY 01/15/17 [History Last Taken Unknown] losartan 100 mg-hydrochlorothiazide 25 mg tablet 1 tab PO DAILY 01/15/17 [History Last Taken Unknown] meloxicam 15 mg tablet (Mobic) 15 mg PO DAILY 01/15/17 [History Last Taken Unknown] multivit with nhfvldqi-xxak-IZ-lutein 8 mg iron-400 mcg-300 mcg tablet (Centrum Silver Women) 1 ea PO DAILY 01/15/17 [History Last Taken Unknown] pravastatin 20 mg tablet 20 mg PO QHS 01/15/17 [History Last Taken Unknown] sertraline 50 mg tablet 50 mg PO DAILY 01/15/17 [History Last Taken Unknown] tramadol 50 mg tablet 50 mg PO Q4H PRN PRN Pain 01/15/17 [History Last Taken 06/13/18 06:00] vit C 250 mg-vit E 90 mg-zinc 40 mg-copper 1 rb-fcncen-eovrfc capsule (PreserVision AREDS-2) 2 ea PO DAILY 10/14/17 [History Last Taken Unknown] docusate sodium 100 mg capsule 100 mg PO BID #30 caps 06/16/18 [Rx Last Taken Unknown] magnesium hydroxide 400 mg/5 mL oral suspension 30 ml PO DAILY PRN PRN Constipation ##14 06/16/18 [Rx Last Taken Unknown] oxycodone 5 mg tablet 5 mg PO Q6H PRN PRN Moderate Pain (pain scale 4-5) 7 days #30 tabs 06/16/18 [Rx Last Taken Unknown] diltiazem HCl 120 mg capsule,extended release 24 hr 120 mg PO DAILY 11/20/21 [History Last Taken Unknown] Allergy/AdvReac Type Severity Reaction Status Date / Time iodine Allergy Rash Verified 01/03/23 22:16 COUGH SYRUP W/IODINE Allergy Rash Uncoded 01/03/23 22:16 Family History Mother Colon cancer Maternal family history of colon cancer with metastatic disease to the liver Father Prostate cancer Paternal family history of prostate cancer with metastatic disease to the bones. Sister Colon cancer Breast cancer Surgical History History of appendectomy History of eye surgery History of hysterectomy History of tonsillectomy and adenoidectomy S/P carpal tunnel release S/P cataract extraction Status post hip surgery Social History housing: assisted living facility Smoking Status: Never smoker alcohol intake: never substance use type: does not use ROS ROS Narrative Admission Review of Systems: CONSTITUTIONAL: No weight loss, fever, chills, + weakness or fatigue. HEENT: Eyes: No visual loss, blurred vision, double vision or yellow sclerae. Ears, Nose, Throat: No hearing loss, sneezing, congestion, runny nose or sore throat. SKIN: + Occasional staged ecchymoses especially with recent falls. CARDIOVASCULAR: No chest pain, chest pressure or chest discomfort, palpitations,edema, orthopnea, syncopal events. RESPIRATORY: No shortness of breath, cough or sputum, wheezing, hemoptysis. GASTROINTESTINAL: No anorexia, nausea, vomiting or diarrhea, abdominal pain, melena, BRBPR. GENITOURINARY: No dysuria, frequency, urgency or retention. NEUROLOGICAL: + Difficulty with gait, chronic neuropathy with lumbar back pain no headache, dizziness, syncope, paralysis, focal weakness, change in bowel or bladder control, seizure. MUSCULOSKELETAL: + muscle, back pain, joint pain or stiffness. HEMATOLOGIC: + anemia, bleeding or bruising. LYMPHATICS: No enlarged nodes. No history of splenectomy. PSYCHIATRIC: + history of depression or anxiety. ENDOCRINOLOGIC: No reports of sweating, cold or heat intolerance. No polyuria orpolydipsia. ALLERGIES: No history of asthma, hives, eczema or rhinitis. Vital Signs Vital Signs Vital Signs: 01/03/23 22:10 01/03/23 22:15 01/03/23 22:15 Temperature 98.1 F 98.1 F Temperature Source Oral Oral Pulse Rate 77 78 77 Respiratory Rate 18 17 15 Respiratory Effort Respiratory Depth Respiratory Pattern Blood Pressure 182/87 H 174/81 H 174/81 H Blood Pressure Mean 118 112 112 Pulse Ox 92 93 91 Oxygen Delivery Method Room Air Room Air Room Air Oxygen Flow Rate (L/min) 01/03/23 22:20 01/03/23 22:59 01/03/23 22:59 Temperature 98.1 F Temperature Source Pulse Rate Respiratory Rate Respiratory Effort Normal Non-Labored Respiratory Depth Normal Respiratory Pattern Normal Blood Pressure Blood Pressure Mean Pulse Ox 93 88 93 Oxygen Delivery Method Room Air Room Air Nasal Cannula Oxygen Flow Rate (L/min) 1 01/03/23 23:01 01/03/23 23:09 01/04/23 01:20 Temperature 98.5 F Temperature Source Oral Pulse Rate 84 73 Respiratory Rate 15 18 Respiratory Effort Respiratory Depth Respiratory Pattern Blood Pressure 185/95 H 158/81 H Blood Pressure Mean 125 106 Pulse Ox 94 Oxygen Delivery Method Room Air Nasal Cannula Oxygen Flow Rate (L/min) 1 Weight Weight: 193 lb 9.054 oz Body Mass Index (BMI) 37.8 Physical Exam Narrative Physical Examination: General: Awake, alert, oriented x 3, hard of hearing, remains cooperative, laying in the ED bed, fatigued otherwise no acute distress. Skin: Normal color, normal turgor, no icterus, no cyanosis except for occasionalstaged ecchymoses especially with recent frequent falls. HEENT: AT/NC, EOMI, PERRLA, MMM, mildly hard of hearing, no carotid bruits or JVD noted. Lungs: Diminished, greater bases, appropriate effort, no rales, ronchi or wheezing. Heart: Currently regular rate and rhythm; no gallop, rub audible, + SM. Abdomen: Soft, obese, NTTP, ND, distant normal BS, no HSM. Extremities: No cyanosis, clubbing, or edema. Neurological: Patient awake, alert, oriented as noted, cognitive function appears baseline intact; pupils equally reactive to light and accommodation, cranial nerves II-XII grossly normal, moving all 4 extremities, no focal deficits, strength moderately global decreased. Psychiatric: Affect appears fatigued otherwise normal, no acute evidence of depressive or anxiety feelings. Results Lab / Micro Data Result Diagrams: 01/03/23 23:48 01/03/23 23:48 Labs: Laboratory Results - last 24 hr 01/03/23 23:48: WBC 7.6, RBC 3.89 L, Hgb 12.5, Hct 37.6, MCV 96.7, MCH 32.1 H, MCHC 33.2, RDW Std Deviation 48.8 H, RDW Coeff of Dandy 14.5, Plt Count 266, MPV 9.8, Immature Gran % (Auto) 0.100, Neut % (Auto) 67.2, Lymph % (Auto) 20.7, [place]% (Auto) 7.9, Eos % (Auto) 3.1, Baso % (Auto) 1.0, Absolute Neuts (auto) 5.1, Absolute Lymphs (auto) 1.58, Nucleated RBC % 0 01/03/23 23:48: Sodium 142, Potassium 4.4, Chloride 108 H, Carbon Dioxide 27.0, Anion Gap 7, BUN 31 H, Creatinine 0.76, Estim Creat Clear Calc 29.54, Est GFR (MDRD) Af Amer 93, Est GFR (MDRD) Non-Af 77, BUN/Creatinine Ratio 40.9 H, Glucose 115 H, Calcium 10.3 H Micro: Microbiology 01/03/23 23:22 Nasal Secretion SARS-CoV-2 Antigen (Rapid) - Final Radiology Impression Brain CT 01/03/23 22:20 IMPRESSION: No acute intracranial abnormality. Mild chronic changes. Mild chronic sinusitis. Left globe postoperative changes. Electronically Signed: Solange Calvert MD at 23:10 EDT , Cervical Spine CT 01/03/23 22:20 IMPRESSION: No acute posttraumatic abnormality. Advanced degenerative changes including high-grade multilevel neural foraminal stenosis. Electronically Signed: Solange Calvert MD at 23:34 EDT , Chest X-Ray 01/04/23 00:00 IMPRESSION: 1. Mildly more prominent appearance of descending thoracic aorta margin compared to old exams back to 2017 and [address] if there is clinical concern for aortic aneurysm or dissection. 2. Otherwise stable chest. Electronically Signed: Solange Calvert MD at 0:48 EDT , Assessment & Plan Assessment/Plan (1) Fall: QUALIFIERS: Encounter type: initial encounter Qualified Code(s): W19.XXXA - Unspecified fall, initial encounter PLAN: Plan The patient is an 87 y/o F w/ PMHx: Chronic anemia, Anxiety and Depression, HTN,HLD, Chronic back pain with known spinal stenosis, Fibromyalgia, Obesity who presents to the [facility] ED on 01/04/23 with history of unfortunately falling at approximately 2 PM on day prior to presentation hitting her head on the tank of the commode with no loss of consciousness and only reporting it to nursing in the evening with repeat evaluation at that time with blood pressure with systolic in the 190s prompting transition to the ED for evaluation. #1. Adult failure to thrive with frequent mechanical falls: We will admit to medical surgical floor, maintain on fall precautions, will plan judicious hydration and plan repeat chest x-ray in a.m. given unclear hypoxia etiology, will obtain PT and OT assessments as well as case management consultation for discharge planning as patient currently in assisted living and may necessitate given her frequent fall history and current presentation transition to full skilled component at her facility. #2. Hypoxia, unclear specific etiology: Will judiciously hydrate,, given comments on chest x-ray finding we will also obtain CT chest but given creatinine clearance will be without IV contrast this a.m. following some judicious hydration, will obtain full respiratory panel as well as COVID PCR andprocalcitonin, as needed albuterol, continue oxygen supplementation with wean astolerated to room air. #3. Chronic back pain, fibromyalgia, spinal stenosis: Patient with significant fall history likely related, will continue patient home gabapentin regimen, maintain on fall precautions, PT and OT assessment as well as case management consult placed. #4. Chronic anemia, normocytic: Admission hemoglobin 12.5, baseline previously primarily 12 however patient in 2018 did have her hemoglobin decreased transiently, trend CBC. #5. Hypertension: Continue home regimen including losartan, hydrochlorothiazide, diltiazem, PRN hydralazine. #6. Anxiety and depression: We will continue patient home sertraline regimen. #7. Hyperlipidemia: We will continue patient home statin therapy. #8. DVT prophylaxis: Heparin. #9. CODE status: Patient FAIZA is her brother and sister and living will is currently in place. Discussed CODE status at length including difference betweenFULL code, DNR-CCA and DNR-CC status. Following discussions about the differences in these status, requested DNR-CC but she is amenable to medical therapies at this time and understands that evaluation is necessary for potential transition to skilled. Advanced Care Planning Face to Face Time: 16 minutes. Admission Evaluation Time spent evaluating chart, patient history, patient evaluation, care planning and discussion with specialists: 56 minutes. Charges/Coding Visit Charges Inpatient E&M: 51222 Init Hosp L2 Procedures Hospitalists Procedures: 06484 Advncd Care Plan 30 Min 01/04/23 0248 <Electronically signed by Destini Castillo MD> Cosigner Signature (if applicable): CC: Dr. Destini Castillo MD; Dr. Jordan Landon MD~ Signed [facility] Work Phone: 1([phone]) 966-876811-25-2022 History of Present illness Narrative* Jordan Landon MD - 09/18/2022 2:00 PM EST Chief Complaint Patient presents with: F/U 6 Month HPI Terrie Samano is a 87 year old female who presents here today for a 6 monty follow up. Pt lives at [facility] System, has lived there for 9 years. Moved [...] chest pain or dizziness. Notes some sob, notedby her Therapist. Wondering if this related to [...] due to being in Assisted Living. Denies muchexercise. Currently taking Pravastatin 20 mg once daily, doing well on medication. Pain - Chronic low back pain with radiculopathy, right hip pain and arthritis pain. On her current regimen of Gabapentin 300 mg once daily and Mobic 15 mg daily. Pt reports increased right sided backpain over the past two days. She was [...] by PT/OT and Balance Therapy at [facility] in the past. Feels this [...] more of the questions above can increase theirrisk of falling Patient is at greater risk [...] 1 Drop in eyes as needed. lidocaine TTq-rj-jjnsdxu-menth 4-30-10 % ktcg Apply to affected area. [...] BP Cuff Size: Regular Adult) Pulse 82 Resp16 Wt 82.6 kg (182 lb 3.2 oz) [...] Lymph% 09/15/2022 20.6 Abs Lymph 09/15/2022 1.70 [place]% 09/15/2022 10.3 Abs [place] 09/15/2022 0.85 Eosin% 09/15/2022 3.5 Abs Eosin [...] Decision Making Level: 4 - Moderate Jordan Landon MD documented [facility] Miscellaneous Notes* Telephone Encounter - Lyn Quick Ma - 08/26/2022 11:13 AM EDT Forms completed by PCP and faxed back to number below. Lyn Quick Ma * Telephone Encounter - Lyn Quick Ma - 08/25/2022 11:49 AM EDT Type of form: Yearly H&P, [facility] Form received via fax When form is completed, Fax form to [phone] Form has been forwarded to Physician Desk: Dr. Dipesh Quick Ma documented in this encounterHock[facility]08-10-[facility]22 Instructions* Patient Instructions* Jordan Landon MD - 06/03/2022 3:32 PM EDT Do not take Meloxicam (Mobic) while using 9 day Prednisone taper. documented in this encounterHocking [facility]08-10-[facility]22 History of Present illness Narrative* Jordan Landon MD - 06/03/2022 3:20 PM EDT Chief Complaint Patient presents with: Pain HPI [...] 1 Drop in eyes as needed. lidocaine RFc-uc-ylrbyey-menth 4-30-10 % ktcg Apply to affected area. [...] Past Histories independently gathered by the clinical network support specialist and the remaining scribed note accurately describes my personal service to the patient. Medical Decision Making: Problems: Low: Acute, uncomplicated illness or injury Risk: Moderate: Drug management Medical Decision Making Level: 3 - Jona Landon MD The documentation for this note was completed by Lyn Quick Ma acting as scribe for Jordan Landon MD. June 03, 2022 3:30 PM. Lyn Quick Ma documented in this encounterHock[facility]05-23-2022 Nurse Note* Citlalli Brown Ma - 03/16/2022 3:32 PM EDT Falls Risk Intake: 1. Patient age 65 or over, unsteady, or was advised to use special equipment to aid ambulation (i.e., cane or walker)? Yes 2. Has the patient had two falls in the past year, or one with injury? Yes 3. Does the patient need to use their hands when pushing up from chair, or hold onto furniture whenambulating at home? Yes 4. Is the patient worried about falling? Yes Please inform patient that answering Yes to one or more of the questions above can increase theirrisk of falling Patient is at greater risk for falls. Falls Instruction: Teaching document below - reviewed and given to patient [facility] - Preventing Falls and Maintaining Balance documented in this encounterHock[facility]05-23-[facility]22 History of Present illness Narrative* Jordan Landon MD - 03/16/2022 3:20 PM EDT Chief Complaint Patient presents with: 6 Month Exam HPI Terrie Samano is a 87 year old female who presents here today for a 6 month follow up. Pt living in [facility]. She has a living will, health Care POA. Denies any stomach or bowel issues. Has previously seen Dr. Mullen in the past and given Ditropan 10 mg once daily. Does have prn flare ups of a rash located in her groin that she uses Nystatin for.She does get up a lot at night to urinate which she thinks does contribute to her fatigue. She getsup early around 6 or 6:30 AM. HTN: Denies checking BP at home or having symptoms of chest pain, sob or dizziness. On current regimen of Losartan 100 mg once daily and Cardizem 120 mg once daily. She states she has wall thickeningto the left ventricle and it is smaller. [...] 1 Drop in eyes as needed. lidocaine JLu-sj-cjnetzk-menth 4-30-10 % ktcg Apply to affected area. [...] Lymph% 03/09/2022 21.8 Abs Lymph 03/09/2022 1.74 [place]% 03/09/2022 8.6 Abs [place] 03/09/2022 0.69 Eosin% 03/09/2022 3.5 Abs Eosin [...] Past Histories independently gathered by the clinical network support specialist and the remaining scribed note accurately describes my personal service to the patient. Medical Decision Making: Problems: Moderate: 2+ stable chronic illnesses Data: Unique test result(s) reviewed: 3+ Unique test(s) ordered: 3+ Risk: Moderate: Drug management Medical Decision Making Level: 4 - Moderate Jordan Landon MD The documentation for this note was completed by Citlalli Brown Ma acting as scribe for Jordan Landon MD. March 16, 2022 3:33 PM. Citlalli Brown Ma [facility]* Diagnosis Essential hypertension- Primary Unspecified essential [...] back pain laterality documented in this encounter [facility]* Diagnosis Lumbar radiculopathy- Primary Thoracic or lumbosacral neuritis or radiculitis, unspecified Right hip pain Pain in joint, pelvic region and thigh Yeast dermatitis Candidiasis of skin and nails Essential hypertension Unspecified essential hypertension Chronic back pain, unspecified back location, unspecified back pain laterality documented in this encounter [facility]* Diagnosis Essential hypertension- Primary Unspecified essential hypertension Mixed hyperlipidemia Elevated glucose Other abnormal glucose Lumbar radiculopathy Thoracic or lumbosacral neuritis or radiculitis, unspecified Right hip pain Pain in joint, pelvic region and thigh Yeast dermatitis Candidiasis of skin and nails documented in this encounter [facility]* Diagnosis Onset Date Resolution Status Elevated blood pressure read ing with diagnosis of hypertension acute Fall acute Head injury acute Hypoxia [facility] Work Phone: Evaluation note* Diagnosis Onset Date Resolution Status Debility acute Elevated blood pressure read ing with diagnosis of hypertension acute Fall acute Head injury acute Hypoxia [facility] Work Phone: Evaluation note* Diagnosis Hospital discharge follow-up- Primary Other follow-up examination At high risk for falls Personal history of fall Essential hypertension Unspecified essential hypertension documented in this encounter [facility]* Diagnosis Chronic left shoulder pain- Primary Pain in joint, shoulder region documented in this encounter [facility] note* Diagnosis Yeast dermatitis Candidiasis of skin and nails documented in this encounter [facility] noteNo assessment information availableWSelect [facility] Work Phone: Evaluation note* Diagnosis Acute deep vein thrombosis (DVT) of proximal vein of right lower extremity (HCC)- Primary Nonrheumatic mitral valve stenosis documented [facility] encounter [facility]* Diagnosis Yeast dermatitis Candidiasis of skin and nails documented [facility] this [facility]* Diagnosis Acute deep vein thrombosis (DVT) of proximal vein of right lower extremity (HCC) documented in this encounter [facility]* Diagnosis Lumbar radiculopathy Thoracic or lumbosacral neuritis or radiculitis, unspecified documented in this encounter [facility]* Diagnosis 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 Monoclonal paraproteinemia Essential hypertension Unspecified essential hypertension Mixed hyperlipidemia [facility] this [facility]* Diagnosis Essential hypertension- Primary Unspecified essential [...] * Assessment & Plan Note - Jordan Landon MD - 03/23/2024 4:57 PM EDT Associated Problem(s): Primary hyperparathyroidism (HCC) Monitor labs [facility]* Diagnosis Essential hypertension- Primary Unspecified essential [...] ventricular hypertrophy Cardiomegaly documented in this encounter [facility]* Diagnosis Essential hypertension- Primary Unspecified essential [...] Anemia, unspecified Primary hyperparathyroidism (HCC) Primary hyperparathyroidism Lumbar radiculopathy Thoracic or lumbosacral neuritis or radiculitis, unspecified documented in this encounter [facility]* Diagnosis Essential hypertension- Primary Unspecified essential [...] unspecified Primary hyperparathyroidism (HCC) Primary hyperparathyroidism Essential hypertension- Primary Unspecified essential hypertension Mixed hyperlipidemia Anxiety with depression Primary hyperparathyroidism (HCC) Primary hyperparathyroidism Acute deep vein thrombosis (DVT) of proximal vein of right lower extremity (HCC) Right leg swelling Swelling of limb Chronic back pain, unspecified back location, unspecified back pain laterality Lumbar radiculopathy Thoracic or lumbosacral neuritis or radiculitis, unspecified Low hemoglobin Anemia, unspecified OAB (overactive bladder) Hypertonicity of bladder Urinary incontinence, unspecified type Encounter for immunization Need for other specified prophylactic vaccination against single bacterial disease Anemia, unspecified type documented in this encounter [facility]* Diagnosis Essential hypertension- Primary Unspecified essential [...] Anemia, unspecified Primary hyperparathyroidism (HCC) Primary hyperparathyroidism Anemia, unspecified type- Primary documented in this encounter [facility]* Diagnosis Essential hypertension- Primary Unspecified essential [...] Anemia, unspecified Primary hyperparathyroidism (HCC) Primary hyperparathyroidism Fall, initial encounter- Primary Injury of head, initial encounter Anemia, unspecified type Iron deficiency anemia, unspecified iron deficiency anemia type Family history of colon cancer Family history of malignant neoplasm of gastrointestinal tract Weight loss Loss of weight [facility]* Diagnosis Essential hypertension- Primary Unspecified essential [...] Anemia, unspecified Primary hyperparathyroidism (HCC) Primary hyperparathyroidism Iron deficiency anemia, unspecified iron deficiency anemia type Family history of colon cancer Family history of malignant neoplasm of gastrointestinal tract Weight loss Loss of weight [facility] Diagnosis Essential hypertension- Primary Unspecified essential [...] Primary hyperparathyroidism Essential hypertension Unspecified essential hypertension Mixed hyperlipidemia [facility]* Diagnosis Essential hypertension- Primary Unspecified essential [...] Anemia, unspecified Primary hyperparathyroidism (HCC) Primary hyperparathyroidism Acute cough- Primary Bacterial pneumonia Bacterial pneumonia, unspecified Acute cough [facility]* Diagnosis Essential hypertension- Primary Unspecified essential [...] Anemia, unspecified Primary hyperparathyroidism (HCC) Primary hyperparathyroidism Acute cough [facility]* Diagnosis Essential hypertension- Primary Unspecified essential [...] Anemia, unspecified Primary hyperparathyroidism (HCC) Primary hyperparathyroidism Bacterial pneumonia- Primary Bacterial pneumonia, unspecified documented in this encounter [facility]* Diagnosis Essential hypertension- Primary Unspecified essential [...] Anemia, unspecified Primary hyperparathyroidism (HCC) Primary hyperparathyroidism Lumbar radiculopathy Thoracic or lumbosacral neuritis or radiculitis, unspecified documented in this encounter [facility]* Diagnosis Essential hypertension- Primary Unspecified essential [...] Anemia, unspecified Primary hyperparathyroidism (HCC) Primary hyperparathyroidism Poor balance- Primary Other symptoms involving nervous and musculoskeletal systems Frequent falls Personal history of fall Generalized weakness Other malaise and fatigue documented in this encounter [facility]* Diagnosis Essential hypertension- Primary Unspecified essential [...] Anemia, unspecified Primary hyperparathyroidism (HCC) Primary hyperparathyroidism Bacterial pneumonia Bacterial pneumonia, unspecified documented [facility] encounter [facility]* Diagnosis Essential hypertension- Primary Unspecified essential [...] Anemia, unspecified Primary hyperparathyroidism (HCC) Primary hyperparathyroidism Abnormal x-ray- Primary Other nonspecific (abnormal) findings on radiological and other examinations of body structure documented in this encounter [facility]* Diagnosis Essential hypertension- Primary Unspecified essential [...] unspecified Primary hyperparathyroidism (HCC) Primary hyperparathyroidism Essential hypertension- Primary Unspecified essential hypertension Anemia, unspecified type Mixed hyperlipidemia OAB (overactive bladder) Hypertonicity of bladder Anxiety with depression Gait abnormality Abnormality of gait Frequent falls Personal history of fall Iron deficiency anemia, unspecified iron deficiency anemia type documented in this encounter [facility] and [facility] Author Dr. Castillo [facility] January 04, 2023 2:48am Note Date/Time January 04, 2023 2:1 6am [facility] Medical Records Department [address] [place] [id number] History & Physical Exam 01/04/235 MR#: [id number] Acct: [id number] Name: TERRIE SAMANO Rep #:[id number] : 1935 87 From: Destini Castillo MD PCP: Dr. Jordan Landon MD Status:AD M TRAM Location: MS3 MI661-9 HPI - General General Date of Admission: 01/04/23 Date of Service: 01/04/23 Chief Complaint: Fall. HPI Narrative The patient is an 87 y/o F w/ PMHx: Chronic anemia, Anxiety and Depression, HTN,HLD, Chronic back pain with known spinal stenosis, Fibromyalgia, Obesity who presents to the [facility] ED on 01/04/23 with history of unfortunately falling at approximately 2 PM on day prior to presentation hitting her head on the tank of the commode with no loss of consciousness and only reporting it to nursing in the evening with repeat evaluation at that time with blood pressure with systolic in the 190s prompting transition to the ED for evaluation. She denies any associated headache with her recent fall nor any nausea or emesis. She normally does function with a walker but has been falling frequently including 2 days prior. Work-up in the ED included T98.5, heart 84, BP 185/95, respiratory rate 15, initially reported as 88% on room air improving to 94% on 1 L nasal cannula, CBC with WBC 7.6, hemoglobin 12.5, platelet 266 without marked shift, BMP with chloride 108, BUN/creatinine 31/0.76, glucose 115, calcium 10.3, chest x-ray with mildly more prominent appearance descending thoracic aortic margin compared to 2017 in 2018 otherwise stable chest, COVID rapid antigen negative, CT brain with no acute intracranial abnormality with mild chronic changes, mild chronic sinusitis, evidence postop change left globe, CT cervical spine, with noacute posttraumatic abnormality, advanced degenerative changes including high-grade multilevel neural foraminal stenosis. In the ED patient pulse ox noted todecrease down to 88% therefore she was placed on 1 L nasal cannula with no dyspnea complaints reported. Given the hypoxia prompted ED physician to obtain basic labs/COVID/chest x-ray. In the ED patient ministered labetalol 10 mg IV x1. ED ambulatory pulse oximeter assessment with low of 88% on room air. [facility] Medical History Anxiety and depression Chronic anemia Frequent falls HTN (hypertension) Hyperlipidemia Macular degeneration Obesity Osteoarthritis Spinal stenosis Home Medications aspirin 81 mg tablet,delayed release 81 mg PO DAILY@0800 01/15/17 [History Last Taken Unknown] calcium carbonate 600 mg-vitamin D3 20 mcg (800 unit) tablet (Caltrate with Vitamin D3) 2 ea PO DAILY 01/15/17 [History Last Taken Unknown] gabapentin 100 mg capsule (Neurontin) 300 mg PO DAILY neuropathy 01/15/17 [History Last Taken 06/13/18 06:00] eltexqhgsfk-mzmtxqgqn-jhj C-Mn 500 mg-400 mg capsule 2 ea PO DAILY 01/15/17 [History Last Taken Unknown] losartan 100 mg-hydrochlorothiazide 25 mg tablet 1 tab PO DAILY 01/15/17 [History Last Taken Unknown] meloxicam 15 mg tablet (Mobic) 15 mg PO DAILY 01/15/17 [History Last Taken Unknown] multivit with cjwvyivc-pgyj-MF-lutein 8 mg iron-400 mcg-300 mcg tablet (Centrum Silver Women) 1 ea PO DAILY 01/15/17 [History Last Taken Unknown] pravastatin 20 mg tablet 20 mg PO QHS 01/15/17 [History Last Taken Unknown] sertraline 50 mg tablet 50 mg PO DAILY 01/15/17 [History Last Taken Unknown] tramadol 50 mg tablet 50 mg PO Q4H PRN PRN Pain 01/15/17 [History Last Taken 06/13/18 06:00] vit C 250 mg-vit E 90 mg-zinc 40 mg-copper 1 is-howgzf-pdztpy capsule (PreserVision AREDS-2) 2 ea PO DAILY 10/14/17 [History Last Taken Unknown] docusate sodium 100 mg capsule 100 mg PO BID #30 caps 06/16/18 [Rx Last Taken Unknown] magnesium hydroxide 400 mg/5 mL oral suspension 30 ml PO DAILY PRN PRN Constipation ##14 06/16/18 [Rx Last Taken Unknown] oxycodone 5 mg tablet 5 mg PO Q6H PRN PRN Moderate Pain (pain scale 4-5) 7 days #30 tabs 06/16/18 [Rx Last Taken Unknown] diltiazem HCl 120 mg capsule,extended release 24 hr 120 mg PO DAILY 11/20/21 [History Last Taken Unknown] Allergy/AdvReac Type Severity Reaction Status Date / Time iodine Allergy Rash Verified 01/03/23 22:16 COUGH SYRUP W/IODINE Allergy Rash Uncoded 01/03/23 22:16 Family History Mother Colon cancer Maternal family history of colon cancer with metastatic disease to the liver Father Prostate cancer Paternal family history of prostate cancer with metastatic disease to the bones. Sister Colon cancer Breast cancer Surgical History History of appendectomy History of eye surgery History of hysterectomy History of tonsillectomy and adenoidectomy S/P carpal tunnel release S/P cataract extraction Status post hip surgery Social History housing: assisted living facility Smoking Status: Never smoker alcohol intake: never substance use type: does not use ROS ROS Narrative Admission Review of Systems: CONSTITUTIONAL: No weight loss, fever, chills, + weakness or fatigue. HEENT: Eyes: No visual loss, blurred vision, double vision or yellow sclerae. Ears, Nose, Throat: No hearing loss, sneezing, congestion, runny nose or sore throat. SKIN: + Occasional staged ecchymoses especially with recent falls. CARDIOVASCULAR: No chest pain, chest pressure or chest discomfort, palpitations,edema, orthopnea, syncopal events. RESPIRATORY: No shortness of breath, cough or sputum, wheezing, hemoptysis. GASTROINTESTINAL: No anorexia, nausea, vomiting or diarrhea, abdominal pain, melena, BRBPR. GENITOURINARY: No dysuria, frequency, urgency or retention. NEUROLOGICAL: + Difficulty with gait, chronic neuropathy with lumbar back pain no headache, dizziness, syncope, paralysis, focal weakness, change in bowel or bladder control, seizure. MUSCULOSKELETAL: + muscle, back pain, joint pain or stiffness. HEMATOLOGIC: + anemia, bleeding or bruising. LYMPHATICS: No enlarged nodes. No history of splenectomy. PSYCHIATRIC: + history of depression or anxiety. ENDOCRINOLOGIC: No reports of sweating, cold or heat intolerance. No polyuria orpolydipsia. ALLERGIES: No history of asthma, hives, eczema or rhinitis. Vital Signs Vital Signs Vital Signs: 01/03/23 22:10 01/03/23 22:15 01/03/23 22:15 Temperature 98.1 F 98.1 F Temperature Source Oral Oral Pulse Rate 77 78 77 Respiratory Rate 18 17 15 Respiratory Effort Respiratory Depth Respiratory Pattern Blood Pressure 182/87 H 174/81 H 174/81 H Blood Pressure Mean 118 112 112 Pulse Ox 92 93 91 Oxygen Delivery Method Room Air Room Air Room Air Oxygen Flow Rate (L/min) 01/03/23 22:20 01/03/23 22:59 01/03/23 22:59 Temperature 98.1 F Temperature Source Pulse Rate Respiratory Rate Respiratory Effort Normal Non-Labored Respiratory Depth Normal Respiratory Pattern Normal Blood Pressure Blood Pressure Mean Pulse Ox 93 88 93 Oxygen Delivery Method Room Air Room Air Nasal Cannula Oxygen Flow Rate (L/min) 1 01/03/23 23:01 01/03/23 23:09 01/04/23 01:20 Temperature 98.5 F Temperature Source Oral Pulse Rate 84 73 Respiratory Rate 15 18 Respiratory Effort Respiratory Depth Respiratory Pattern Blood Pressure 185/95 H 158/81 H Blood Pressure Mean 125 106 Pulse Ox 94 Oxygen Delivery Method Room Air Nasal Cannula Oxygen Flow Rate (L/min) 1 Weight Weight: 193 lb 9.054 oz Body Mass Index (BMI) 37.8 Physical Exam Narrative Physical Examination: General: Awake, alert, oriented x 3, hard of hearing, remains cooperative, laying in the ED bed, fatigued otherwise no acute distress. Skin: Normal color, normal turgor, no icterus, no cyanosis except for occasionalstaged ecchymoses especially with recent frequent falls. HEENT: AT/NC, EOMI, PERRLA, MMM, mildly hard of hearing, no carotid bruits or JVD noted. Lungs: Diminished, greater bases, appropriate effort, no rales, ronchi or wheezing. Heart: Currently regular rate and rhythm; no gallop, rub audible, + SM. Abdomen: Soft, obese, NTTP, ND, distant normal BS, no HSM. Extremities: No cyanosis, clubbing, or edema. Neurological: Patient awake, alert, oriented as noted, cognitive function appears baseline intact; pupils equally reactive to light and accommodation, cranial nerves II-XII grossly normal, moving all 4 extremities, no focal deficits, strength moderately global decreased. Psychiatric: Affect appears fatigued otherwise normal, no acute evidence of depressive or anxiety feelings. Results Lab / Micro Data Result Diagrams: 01/03/23 23:48 01/03/23 23:48 Labs: Laboratory Results - last 24 hr 01/03/23 23:48: WBC 7.6, RBC 3.89 L, Hgb 12.5, Hct 37.6, MCV 96.7, MCH 32.1 H, MCHC 33.2, RDW Std Deviation 48.8 H, RDW Coeff of Dandy 14.5, Plt Count 266, MPV 9.8, Immature Gran % (Auto) 0.100, Neut % (Auto) 67.2, Lymph % (Auto) 20.7, [place]% (Auto) 7.9, Eos % (Auto) 3.1, Baso % (Auto) 1.0, Absolute Neuts (auto) 5.1, Absolute Lymphs (auto) 1.58, Nucleated RBC % 0 01/03/23 23:48: Sodium 142, Potassium 4.4, Chloride 108 H, Carbon Dioxide 27.0, Anion Gap 7, BUN 31 H, Creatinine 0.76, Estim Creat Clear Calc 29.54, Est GFR (MDRD) Af Amer 93, Est GFR (MDRD) Non-Af 77, BUN/Creatinine Ratio 40.9 H, Glucose 115 H, Calcium 10.3 H Micro: Microbiology 01/03/23 23:22 Nasal Secretion SARS-CoV-2 Antigen (Rapid) - Final Radiology Impression Brain CT 01/03/23 22:20 IMPRESSION: No acute intracranial abnormality. Mild chronic changes. Mild chronic sinusitis. Left globe postoperative changes. Electronically Signed: Solange Calvert MD at 23:10 EDT , Cervical Spine CT 01/03/23 22:20 IMPRESSION: No acute posttraumatic abnormality. Advanced degenerative changes including high-grade multilevel neural foraminal stenosis. Electronically Signed: Solange Calvert MD at 23:34 EDT , Chest X-Ray 01/04/23 00:00 IMPRESSION: 1. Mildly more prominent appearance of descending thoracic aorta margin compared to old exams back to [address] if there is clinical concern for aortic aneurysm or dissection. 2. Otherwise stable chest. Electronically Signed: Solange Calvert MD at 0:48 EDT , Assessment & Plan Assessment/Plan (1) Fall: QUALIFIERS: Encounter type: initial encounter Qualified Code(s): W19.XXXA - Unspecified fall, initial encounter PLAN: Plan The patient is an 87 y/o F w/ PMHx: Chronic anemia, Anxiety and Depression, HTN,HLD, Chronic back pain with known spinal stenosis, Fibromyalgia, Obesity who presents to the [facility] ED on 01/04/23 with history of unfortunately falling at approximately 2 PM on day prior to presentation hitting her head on the tank of the commode with no loss of consciousness and only reporting it to nursing in the evening with repeat evaluation at that time with blood pressure with systolic in the 190s prompting transition to the ED for evaluation. #1. Adult failure to thrive with frequent mechanical falls: We will admit to medical surgical floor, maintain on fall precautions, will plan judicious hydration and plan repeat chest x-ray in a.m. given unclear hypoxia etiology, will obtain PT and OT assessments as well as case management consultation for discharge planning as patient currently in assisted living and may necessitate given her frequent fall history and current presentation transition to full skilled component at her facility. #2. Hypoxia, unclear specific etiology: Will judiciously hydrate,, given comments on chest x-ray finding we will also obtain CT chest but given creatinine clearance will be without IV contrast this a.m. following some judicious hydration, will obtain full respiratory panel as well as COVID PCR andprocalcitonin, as needed albuterol, continue oxygen supplementation with wean astolerated to room air. #3. Chronic back pain, fibromyalgia, spinal stenosis: Patient with significant fall history likely related, will continue patient home gabapentin regimen, maintain on fall precautions, PT and OT assessment as well as case management consult placed. #4. Chronic anemia, normocytic: Admission hemoglobin 12.5, baseline previously primarily 12 however patient in 2018 did have her hemoglobin decreased transiently, trend CBC. #5. Hypertension: Continue home regimen including losartan, hydrochlorothiazide, diltiazem, PRN hydralazine. #6. Anxiety and depression: We will continue patient home sertraline regimen. #7. Hyperlipidemia: We will continue patient home statin therapy. #8. DVT prophylaxis: Heparin. #9. CODE status: Patient FAIZA is her brother and sister and living will is currently in place. Discussed CODE status at length including difference betweenFULL code, DNR-CCA and DNR-CC status. Following discussions about the differences in these status, requested DNR-CC but she is amenable to medical therapies at this time and understands that evaluation is necessary for potential transition to skilled. Advanced Care Planning Face to Face Time: 16 minutes. Admission Evaluation Time spent evaluating chart, patient history, patient evaluation, care planning and discussion with specialists: 56 minutes. Charges/Coding Visit Charges Inpatient E&M: 52572 Init Hosp L2 Procedures Hospitalists Procedures: 66028 Advncd Care Plan 30 Min 01/04/23 0248 <Electronically signed by Destini Castillo MD> Cosigner Signature (if applicable): CC: Dr. Destini Castillo MD; Dr. Jordan Landon MD~ Signed [facility] Work Phone: Reason for referral (narrative)No reason for referral information availableWSelect [facility] Work Phone: Summary Purpose Family History Relationship Condition Age at Onset Recorded Date/T sylvia mother Malignant neoplasm of colon Unknown father Malignant neoplasm of prostate Unknown sister Malignant neoplasm of colon Unknown Malignant neoplasm of breast Unknown Advance Directives Documents on File Type Date Recorded Patient Cosmetic Account Coordinator Expl anation Advance Directive(s) 06/21/2019 3:08 PM Advance Directive Response Recorded Date/ Time Name of Medical Power of Power Originator SIMONE ZAPATA January 03, 2023 10:17pm Advance Directives Yes September 2:44pm Living Will Yes January 03, 2023 10:17pm Power of Power Originator Yes January 03 10:17pm Advance Directive Response Recorded Date/ Time Name of Medical Power of Power Originator SIMONE ZAPATA January 04, 2023 3:17am Advance Directives Yes September 2:44pm Living Will Yes January 04, 2023 3:17am Power of Power Originator Yes January 04 3:17am Documents on File Type Date Recorded Patient Cosmetic Account Coordinator Expl anation Advance Directive(s) 06/21/2019 3:08 PM Advance Directive Response Recorded Date/ Time Advance Directives Yes September 2:44pm Living Will Yes January 04, 2023 3:17am Power of Power Originator Yes January 04 3:17am Advance Directive Response Recorded Date/ Time Advance Directives Yes September 1:44pm Living Will Yes January 04, 2023 2:17am Power of Power Originator Yes January 04 2:17am Advance Directive Response Recorded Date/ Time Do you have a Healthcare Power of Power Originator? Yes April 02, 2025 5:24pm Advance Directives Yes September 2:44pm Chief Complaint and Reason for Visit Chief Complaint FREQUENT FALLS, HYPO YASMANY Reason for Visit Elevated blood press ure reading with diagnosis of hypertension Fall Head injury Hypoxia Chief Complaint FREQUENT FALLS, HYPO YASMANY FREQUENT FALLS, HYPOXIA FREQUENT FALLS, HYPOXIA Reason for Visit Debility Elevated blood pressure reading with diagnosis of hypertension Fall Head injury Hypoxia Chief Complaint Primary osteoarthrit is, left shoulder Chief Complaint Primary osteoarthrit is, left shoulder LABWORK Chief Complaint Admit Date FALL AND LACERATION April 02, 2025 5:15p m Reason for Referral Specialty Diagnoses / Procedures Referred By Contac t Referred To Contact Pain Management Diagnoses Chronic left shoulder pain Procedures CONSULT TO PAIN MGT OFFICE/OUTPATIENT [facility] 60-74 MINUTES Jordan Landon MD [address] [place] [address] Referral ID Status Reason Start Date Expiration Date Visits Requested Visits Authorized [id number] Authorized PCP Requested Referral 05/11/2023 05/10/2024 1 1 Specialty Diagnoses / Procedures Referred By Contac t Referred To Contact General Surgery Diagnoses Iron deficiency anemia, unspecified iron deficiency anemia type Family history of colon cancer Weight loss Procedures CONSULT TO GENERAL SURGERY OFFICE/OUTPATIENT [facility] MDM 60 MINUTES Jordan Landon MD [address] [place] [address] Referral ID Status Reason Start Date Expiration Date Visits Requested Visits Authorized [id number] Authorized PCP Requested Referral 10/05/2025 1 1 Additional Source Comments INFORMATION SOURCE (unrecogn ized section and content) DATE CREATED AUTHOR 05/10/2018 [facility] DATE CREATED AUTHOR AUTHOR'S ORGANIZ ATION 04/09/2025 [facility] DATE CREATED AUTHOR AUTHOR'S ORGANIZ ATION 04/25/2025 [facility] Source Comments (unrecognize d section and content) In the event this informatio n is protected by the Federal Confidentiality of Alcohol and Drug Abuse Patient Records regulations: The Federal rules restrict any use of the information to criminally investigate or prosecute any alcohol or drug abuse patient.[facility] the event this information is protected by the Federal Confidentiality of Alcohol and Drug Abuse Patient Records regulations: The Federal rules restrict any use of the information to criminally investigate or prosecute any alcohol or drug abuse patient.[facility]In the event this information is protected by the Federal Confidentiality of Alcohol and Drug Abuse Patient Records regulations: The Federal rules restrict any use of the information to criminally investigate or prosecute any alcohol or drug abuse patient.[facility]In the event this information is protected by the Federal Confidentiality of Alcohol and Drug Abuse Patient Records regulations: The Federal rules restrict any use of the information to criminally investigate or prosecute any alcohol or drug abuse patient.[facility] HospitalIn the event this information is protected by the Federal Confidentiality of Alcohol and Drug Abuse Patient Records regulations: The Federal rules restrict any use of the information to criminally investigate or prosecute any alcohol or drug abuse patient.[facility] HospitalIn the event this information is protected by the Federal Confidentiality of Alcohol and Drug Abuse Patient Records regulations: The Federal rules restrict any use of the information to criminally investigate or prosecute any alcohol or drug abuse patient.[facility] HospitalIn the event this information is protected by the Federal Confidentiality of Alcohol and Drug Abuse Patient Records regulations: The Federal rules restrict any use of the information to criminally investigate or prosecute any alcohol or drug abuse patient.[facility] HospitalIn the event this information is protected by the Federal Confidentiality of Alcohol and Drug Abuse Patient Records regulations: The Federal rules restrict any use of the information to criminally investigate or prosecute any alcohol or drug abuse patient.[facility] HospitalIn the event this information is protected by the Federal Confidentiality of Alcohol and Drug Abuse Patient Records regulations: The Federal rules restrict any use of the information to criminally investigate or prosecute any alcohol or drug abuse patient.[facility] HospitalIn the event this information is protected by the Federal Confidentiality of Alcohol and Drug Abuse Patient Records regulations: The Federal rules restrict any use of the information to criminally investigate or prosecute any alcohol or drug abuse patient.[facility] HospitalIn the event this information is protected by the Federal Confidentiality of Alcohol and Drug Abuse Patient Records regulations: The Federal rules restrict any use of the information to criminally investigate or prosecute any alcohol or drug abuse patient.[facility] HospitalIn the event this information is protected by the Federal Confidentiality of Alcohol and Drug Abuse Patient Records regulations: The Federal rules restrict any use of the information to criminally investigate or prosecute any alcohol or drug abuse patient.[facility] HospitalIn the event this information is protected by the Federal Confidentiality of Alcohol and Drug Abuse Patient Records regulations: The Federal rules restrict any use of the information to criminally investigate or prosecute any alcohol or drug abuse patient.[facility] HospitalIn the event this information is protected by the Federal Confidentiality of Alcohol and Drug Abuse Patient Records regulations: The Federal rules restrict any use of the information to criminally investigate or prosecute any alcohol or drug abuse patient.[facility] HospitalIn the event this information is protected by the Federal Confidentiality of Alcohol and Drug Abuse Patient Records regulations: The Federal rules restrict any use of the information to criminally investigate or prosecute any alcohol or drug abuse patient.[facility] HospitalIn the event this information is protected by the Federal Confidentiality of Alcohol and Drug Abuse Patient Records regulations: The Federal rules restrict any use of the information to criminally investigate or prosecute any alcohol or drug abuse patient.[facility] HospitalIn the event this information is protected by the Federal Confidentiality of Alcohol and Drug Abuse Patient Records regulations: The Federal rules restrict any use of the information to criminally investigate or prosecute any alcohol or drug abuse patient.[facility] HospitalIn the event this information is protected by the Federal Confidentiality of Alcohol and Drug Abuse Patient Records regulations: The Federal rules restrict any use of the information to criminally investigate or prosecute any alcohol or drug abuse patient.[facility] HospitalIn the event this information is protected by the Federal Confidentiality of Alcohol and Drug Abuse Patient Records regulations: The Federal rules restrict any use of the information to criminally investigate or prosecute any alcohol or drug abuse patient.[facility] HospitalIn the event this information is protected by the Federal Confidentiality of Alcohol and Drug Abuse Patient Records regulations: The Federal rules restrict any use of the information to criminally investigate or prosecute any alcohol or drug abuse patient.[facility] HospitalIn the event this information is protected by the Federal Confidentiality of Alcohol and Drug Abuse Patient Records regulations: The Federal rules restrict any use of the information to criminally investigate or prosecute any alcohol or drug abuse patient.[facility] HospitalIn the event this information is protected by the Federal Confidentiality of Alcohol and Drug Abuse Patient Records regulations: The Federal rules restrict any use of the information to criminally investigate or prosecute any alcohol or drug abuse patient.[facility] HospitalIn the event this information is protected by the Federal Confidentiality of Alcohol and Drug Abuse Patient Records regulations: The Federal rules restrict any use of the information to criminally investigate or prosecute any alcohol or drug abuse patient.[facility] HospitalIn the event this information is protected by the Federal Confidentiality of Alcohol and Drug Abuse Patient Records regulations: The Federal rules restrict any use of the information to criminally investigate or prosecute any alcohol or drug abuse patient.[facility] HospitalIn the event this information is protected by the Federal Confidentiality of Alcohol and Drug Abuse Patient Records regulations: The Federal rules restrict any use of the information to criminally investigate or prosecute any alcohol or drug abuse patient.[facility] HospitalIn the event this information is protected by the Federal Confidentiality of Alcohol and Drug Abuse Patient Records regulations: The Federal rules restrict any use of the information to criminally investigate or prosecute any alcohol or drug abuse patient.[facility] HospitalIn the event this information is protected by the Federal Confidentiality of Alcohol and Drug Abuse Patient Records regulations: The Federal rules restrict any use of the information to criminally investigate or prosecute any alcohol or drug abuse patient.[facility] HospitalIn the event this information is protected by the Federal Confidentiality of Alcohol and Drug Abuse Patient Records regulations: The Federal rules restrict any use of the information to criminally investigate or prosecute any alcohol or drug abuse patient.[facility] HospitalIn the event this information is protected by the Federal Confidentiality of Alcohol and Drug Abuse Patient Records regulations: The Federal rules restrict any use of the information to criminally investigate or prosecute any alcohol or drug abuse patient.[facility] HospitalIn the event this information is protected by the Federal Confidentiality of Alcohol and Drug Abuse Patient Records regulations: The Federal rules restrict any use of the information to criminally investigate or prosecute any alcohol or drug abuse patient.[facility] HospitalIn the event this information is protected by the Federal Confidentiality of Alcohol and Drug Abuse Patient Records regulations: The Federal rules restrict any use of the information to criminally investigate or prosecute any alcohol or drug abuse patient.[facility] HospitalIn the event this information is protected by the Federal Confidentiality of Alcohol and Drug Abuse Patient Records regulations: The Federal rules restrict any use of the information to criminally investigate or prosecute any alcohol or drug abuse patient.[facility] HospitalIn the event this information is protected by the Federal Confidentiality of Alcohol and Drug Abuse Patient Records regulations: The Federal rules restrict any use of the information to criminally investigate or prosecute any alcohol or drug abuse patient.[facility] HospitalIn the event this information is protected by the Federal Confidentiality of Alcohol and Drug Abuse Patient Records regulations: The Federal rules restrict any use of the information to criminally investigate or prosecute any alcohol or drug abuse patient.[facility] HospitalIn the event this information is protected by the Federal Confidentiality of Alcohol and Drug Abuse Patient Records regulations: The Federal rules restrict any use of the information to criminally investigate or prosecute any alcohol or drug abuse patient.[facility] HospitalIn the event this information is protected by the Federal Confidentiality of Alcohol and Drug Abuse Patient Records regulations: The Federal rules restrict any use of the information to criminally investigate or prosecute any alcohol or drug abuse patient.[facility] HospitalIn the event this information is protected by the Federal Confidentiality of Alcohol and Drug Abuse Patient Records regulations: The Federal rules restrict any use of the information to criminally investigate or prosecute any alcohol or drug abuse patient.[facility] HospitalIn the event this information is protected by the Federal Confidentiality of Alcohol and Drug Abuse Patient Records regulations: The Federal rules restrict any use of the information to criminally investigate or prosecute any alcohol or drug abuse patient.[facility] HospitalIn the event this information is protected by the Federal Confidentiality of Alcohol and Drug Abuse Patient Records regulations: The Federal rules restrict any use of the information to criminally investigate or prosecute any alcohol or drug abuse patient.[facility] HospitalIn the event this information is protected by the Federal Confidentiality of Alcohol and Drug Abuse Patient Records regulations: The Federal rules restrict any use of the information to criminally investigate or prosecute any alcohol or drug abuse patient.[facility] HospitalIn the event this information is protected by the Federal Confidentiality of Alcohol and Drug Abuse Patient Records regulations: The Federal rules restrict any use of the information to criminally investigate or prosecute any alcohol or drug abuse patient.[facility] HospitalIn the event this information is protected by the Federal Confidentiality of Alcohol and Drug Abuse Patient Records regulations: The Federal rules restrict any use of the information to criminally investigate or prosecute any alcohol or drug abuse patient.[facility] HospitalIn the event this information is protected by the Federal Confidentiality of Alcohol and Drug Abuse Patient Records regulations: The Federal rules restrict any use of the information to criminally investigate or prosecute any alcohol or drug abuse patient.[facility] HospitalIn the event this information is protected by the Federal Confidentiality of Alcohol and Drug Abuse Patient Records regulations: The Federal rules restrict any use of the information to criminally investigate or prosecute any alcohol or drug abuse patient.[facility] HospitalIn the event this information is protected by the Federal Confidentiality of Alcohol and Drug Abuse Patient Records regulations: The Federal rules restrict any use of the information to criminally investigate or prosecute any alcohol or drug abuse patient.[facility] HospitalIn the event this information is protected by the Federal Confidentiality of Alcohol and Drug Abuse Patient Records regulations: The Federal rules restrict any use of the information to criminally investigate or prosecute any alcohol or drug abuse patient.[facility] HospitalIn the event this information is protected by the Federal Confidentiality of Alcohol and Drug Abuse Patient Records regulations: The Federal rules restrict any use of the information to criminally investigate or prosecute any alcohol or drug abuse patient.[facility] HospitalIn the event this information is protected by the Federal Confidentiality of Alcohol and Drug Abuse Patient Records regulations: The Federal rules restrict any use of the information to criminally investigate or prosecute any alcohol or drug abuse patient.[facility] HospitalIn the event this information is protected by the Federal Confidentiality of Alcohol and Drug Abuse Patient Records regulations: The Federal rules restrict any use of the information to criminally investigate or prosecute any alcohol or drug abuse patient.[facility] HospitalIn the event this information is protected by the Federal Confidentiality of Alcohol and Drug Abuse Patient Records regulations: The Federal rules restrict any use of the information to criminally investigate or prosecute any alcohol or drug abuse patient.[facility] HospitalIn the event this information is protected by the Federal Confidentiality of Alcohol and Drug Abuse Patient Records regulations: The Federal rules restrict any use of the information to criminally investigate or prosecute any alcohol or drug abuse patient.[facility] HospitalIn the event this information is protected by the Federal Confidentiality of Alcohol and Drug Abuse Patient Records regulations: The Federal rules restrict any use of the information to criminally investigate or prosecute any alcohol or drug abuse patient.[facility] HospitalIn the event this information is protected by the Federal Confidentiality of Alcohol and Drug Abuse Patient Records regulations: The Federal rules restrict any use of the information to criminally investigate or prosecute any alcohol or drug abuse patient.[facility] HospitalIn the event this information is protected by the Federal Confidentiality of Alcohol and Drug Abuse Patient Records regulations: The Federal rules restrict any use of the information to criminally investigate or prosecute any alcohol or drug abuse patient.[facility] HospitalIn the event this information is protected by the Federal Confidentiality of Alcohol and Drug Abuse Patient Records regulations: The Federal rules restrict any use of the information to criminally investigate or prosecute any alcohol or drug abuse patient.[facility] HospitalIn the event this information is protected by the Federal Confidentiality of Alcohol and Drug Abuse Patient Records regulations: The Federal rules restrict any use of the information to criminally investigate or prosecute any alcohol or drug abuse patient.[facility] HospitalIn the event this information is protected by the Federal Confidentiality of Alcohol and Drug Abuse Patient Records regulations: The Federal rules restrict any use of the information to criminally investigate or prosecute any alcohol or drug abuse patient.[facility] HospitalIn the event this information is protected by the Federal Confidentiality of Alcohol and Drug Abuse Patient Records regulations: The Federal rules restrict any use of the information to criminally investigate or prosecute any alcohol or drug abuse patient.[facility] HospitalIn the event this information is protected by the Federal Confidentiality of Alcohol and Drug Abuse Patient Records regulations: The Federal rules restrict any use of the information to criminally investigate or prosecute any alcohol or drug abuse patient.[facility] HospitalIn the event this information is protected by the Federal Confidentiality of Alcohol and Drug Abuse Patient Records regulations: The Federal rules restrict any use of the information to criminally investigate or prosecute any alcohol or drug abuse patient.[facility] the event this information is protected by the Federal Confidentiality of Alcohol and Drug Abuse Patient Records regulations: The Federal rules restrict any use of the information to criminally investigate or prosecute any alcohol or drug abuse patient.[facility]In the event this information is protected by the Federal Confidentiality of Alcohol and Drug Abuse Patient Records regulations: The Federal rules restrict any use of the information to criminally investigate or prosecute any alcohol or drug abuse patient.[facility] HospitalIn the event this information is protected by the Federal Confidentiality of Alcohol and Drug Abuse Patient Records regulations: The Federal rules restrict any use of the information to criminally investigate or prosecute any alcohol or drug abuse patient.[facility] HospitalIn the event this information is protected by the Federal Confidentiality of Alcohol and Drug Abuse Patient Records regulations: The Federal rules restrict any use of the information to criminally investigate or prosecute any alcohol or drug abuse patient.[facility] HospitalIn the event this information is protected by the Federal Confidentiality of Alcohol and Drug Abuse Patient Records regulations: The Federal rules restrict any use of the information to criminally investigate or prosecute any alcohol or drug abuse patient.[facility] HospitalIn the event this information is protected by the Federal Confidentiality of Alcohol and Drug Abuse Patient Records regulations: The Federal rules restrict any use of the information to criminally investigate or prosecute any alcohol or drug abuse patient.[facility] HospitalIn the event this information is protected by the Federal Confidentiality of Alcohol and Drug Abuse Patient Records regulations: The Federal rules restrict any use of the information to criminally investigate or prosecute any alcohol or drug abuse patient.[facility] HospitalIn the event this information is protected by the Federal Confidentiality of Alcohol and Drug Abuse Patient Records regulations: The Federal rules restrict any use of the information to criminally investigate or prosecute any alcohol or drug abuse patient.[facility] HospitalIn the event this information is protected by the Federal Confidentiality of Alcohol and Drug Abuse Patient Records regulations: The Federal rules restrict any use of the information to criminally investigate or prosecute any alcohol or drug abuse patient.[facility] HospitalIn the event this information is protected by the Federal Confidentiality of Alcohol and Drug Abuse Patient Records regulations: The Federal rules restrict any use of the information to criminally investigate or prosecute any alcohol or drug abuse patient.[facility] HospitalIn the event this information is protected by the Federal Confidentiality of Alcohol and Drug Abuse Patient Records regulations: The Federal rules restrict any use of the information to criminally investigate or prosecute any alcohol or drug abuse patient.[facility] HospitalIn the event this information is protected by the Federal Confidentiality of Alcohol and Drug Abuse Patient Records regulations: The Federal rules restrict any use of the information to criminally investigate or prosecute any alcohol or drug abuse patient.[facility] Reason for Visit (unrecogniz ed section and content) Reason Comments 6 Month Exam Reason Comments Pain Reason Comments Forms Reason Comments F/U 6 Month Reason Onset Date Comments Transition Of Care 01/07/2023 [facility] hosp f/u Reason Comments Hospital F/U Reason [...] Comments Lab Orders Reason Comments Electronic Communication prison fa xed report Reason Comments Electronic Communication James Delgado Reason Comments Electronic Communication James Delgado re: fall Reason Onset Date Comments Refill Request 07/27/2024 Reason Comments Electronic Communication [facility]. Reason Onset Date Comments Refill Request 09/01/2024 Reason Comments Lab Orders Reason Comments ED Follow-up [facility], laceration to head, required 4 tang Reason Comments Electronic Communication [facility]. Reason Comments Anemia Specialty Diagnoses / Procedures Referred By Contac t Referred To Contact General Surgery Diagnoses Iron deficiency anemia, unspecified iron deficiency anemia type Family history of colon cancer Weight loss Procedures CONSULT TO GENERAL SURGERY OFFICE/OUTPATIENT [facility] 60 MINUTES Jordan Landon MD [address] [place] [address] Referral ID Status Reason Start Date Expiration Date V isits Requested Visits Authorized [id number] Closed PCP Requested Referral 10/05/2024 10/05/2025 1 1 Reason Onset Date Comments Refill Request 10/24/2024 Reason Comments Patient Update Reason Comments Forms Admission forms for [facility] Reason Comments Electronic Communication DNR - [place] Reason Comments Electronic Communication [place] [facility] Reason Comments Appointment Reason Comments Electronic Communication [place] [facility] - Incident note (fall 01/18/25) Reason Comments Electronic Communication [place] [facility] - Incident note Reason Onset Date Comments Refill Request 02/13/2025 Reason Comments Chest Congestion cough x 2 weeks Reason Comments Recheck Follow up- cough/pne umonia Reason Onset Date Comments requesting medication that is 03/12/2025 Reason Comments Electronic Communication [place] Reason Comments Electronic Communication [facility] [facility] Reason Comments Release Of Medical Records Reason Comments OT plan of care Reason Comments Medication Question Reason Comments Home Health: PT Plan of Care Update Care Teams (unrecognized sec tion and content) Military Cook Relationship Specialty Start Date End Date Jordan Landon MD [address] [place] [address] PCP - General Family Practice 05/31/19 Military Cook Relationship Specialty Start Date End Date Jordan Landon MD [address] [place] [address] PCP - General Family Practice 05/31/19 Military Cook Relationship Specialty Start Date End Date Jordan Landon MD [address] [place] [address] PCP - General Family Medicine 05/31/19 Military Cook Relationship Specialty Start Date End Date Jordan Landon MD [address] [place] [address] PCP - General Family Medicine 05/31/19 Team Status: Active Member Role Status Dates Dr. Jovan Diez MD Family Provider Active Dr. Jordan Landon MD Primary Care Provider Active Team Status: Active Member Role Status Dates Dr. Jordan Landon MD Primary Care Provider Active Dr. Brennon Montano DO Emergency Provider Active Dr. Destini Castillo MD Admit Provider, Attending Prov ider Active Team Status: Active Member Role Status Dates Dr. Jordan Landon MD Primary Care Provider Active Dr. Brennon Montano DO Emergency Provider Active Dr. Destini Castillo MD Admit Provider, Attending Provider, Other Provider Active Team Status: Active Member Role Status Dates Dr. Jordan Landon MD Primary Care Provider Active Dr. Brennon Montano DO Emergency Provider Active Dr. Destini Castillo MD Admit Provider, Other Provider Active Dr. Citlalli Guzman , Attending Provider, Other Provide r Active Team Status: Inactive Member Role Status Dates Dr. Jordan Landon MD Primary Care Provider Active Dr. Brennon Montano DO Emergency Provider Active Dr. Destini Castillo MD Admit Provider, Other Provider Active Dr. Citlalli Guzman , DO Attending Provider Active Military Cook Relationship Specialty Start Date End Date Jordan Landon MD [address] [place] [address] PCP - General Family Medicine 05/31/19 Military Cook Relationship Specialty Start Date End Date Jordan Landon MD [address] [place] [address] PCP - General Family Medicine 05/31/19 Military Cook Relationship Specialty Start Date End Date Jodran Landon MD [address] [place] [address] PCP - General Family Medicine 05/31/19 Military Cook Relationship Specialty Start Date End Date Jordan Landon MD [address] [place] [address] PCP - General Family Medicine 05/31/19 Military Cook Relationship Specialty Start Date End Date Jordan Landon MD [address] [place] [address] PCP - General Family Medicine 05/31/19 Military Cook Relationship Specialty Start Date End Date Jordan Landon MD [address] [place] [address] PCP - General Family Medicine 05/31/19 Team Status: Inactive Member Role Status Dates Dr. Jordan Landon MD Primary Care Provider Active Dr. Alejandro Leger MD Attending Provider, Referring Provider Active Military Cook Relationship Specialty Start Date End Date Jordan Landon MD [address] [place] [address] PCP - General Family Medicine 05/31/19 Team Status: Inactive Member Role Status Dates Dr. Jordan Landon MD Primary Care Provider Active Jordan FIELDS MD Attending Provider Active Military Cook Relationship Specialty Start Date End Date Jordan Landon MD [address] [place] [address] PCP - General Family Medicine 05/31/19 Military Cook Relationship Specialty Start Date End Date Jordan Landon MD [address] [place] [address] PCP - General Family Medicine 05/31/19 Military Cook Relationship Specialty Start Date End Date Jordan Landon MD [address] [place] [address] PCP - General Family Medicine 05/31/19 Military Cook Relationship Specialty Start Date End Date Jordan Landon MD [address] [place] [address] PCP - General Family Medicine 05/31/19 Military Cook Relationship Specialty Start Date End Date Jordan Landon MD [address] [place] [address] PCP - General Family Medicine 05/31/19 Military Cook Relationship Specialty Start Date End Date Jordan Landon MD [address] [place] [address] PCP - General Family Medicine 05/31/19 Military Cook Relationship Specialty Start Date End Date Jordan Landon MD [address] [place] [address] PCP - General Family Medicine 05/31/19 Military Cook Relationship Specialty Start Date End Date Jordan Landon MD [address] [place] [address] PCP - General Family Medicine 05/31/19 Military Cook Relationship Specialty Start Date End Date Jordan Landon MD [address] [place] [address] PCP - General Family Medicine 05/31/19 Military Cook Relationship Specialty Start Date End Date Jordan Landon MD [address] [place] [address] PCP - General Family Medicine 05/31/19 Military Cook Relationship Specialty Start Date End Date Jordan Landon MD [address] [place] [address] PCP - General Family Medicine 05/31/19 Military Cook Relationship Specialty Start Date End Date Jordan Landon MD [address] [place] [address] PCP - General Family Medicine 05/31/19 Military Cook Relationship Specialty Start Date End Date Jordan Landon MD [address] [place] [address] PCP - General Family Medicine 05/31/19 Military Cook Relationship Specialty Start Date End Date Jordan Landon MD [address] [place] [address] PCP - General Family Medicine 05/31/19 Military Cook Relationship Specialty Start Date End Date Jordan Landon MD [address] [place] [address] PCP - General Family Medicine 05/31/19 Military Cook Relationship Specialty Start Date End Date Jordan Landon MD [address] [place] [address] PCP - General Family Medicine 05/31/19 Military Cook Relationship Specialty Start Date End Date Jordan Landon MD [address] [place] [address] PCP - General Family Medicine 05/31/19 Military Cook Relationship Specialty Start Date End Date Jordan Landon MD [address] [place] [address] PCP - General Family Medicine 05/31/19 Vonda Valencia APRN.COMMUNITY LIVING SPECIALIST [address] [place] [address] Geospatial Image Analyst Family [facility] 10/01/24 Military Cook Relationship Specialty Start Date End Date Jordan Landon MD [address] [place] [address] PCP - General Family Medicine 05/31/19 Vonda Valencia APRN.COMMUNITY LIVING SPECIALIST [address] [place] [address] [facility] [place] 10/01/24 Military Cook Relationship Specialty Start Date End Date Jordan Landon MD [address] [place] [address] PCP - General Family Medicine 05/31/19 Vonda Valencia HVAC SALES ENGINEER.COMMUNITY LIVING SPECIALIST [address] [place] [address] [facility] 10/01/24 Military Cook Relationship Specialty Start Date End Date Jordan Landon MD [address] [place] [address] PCP - General Family Medicine 05/31/19 Vonda Valencia APRN.COMMUNITY LIVING SPECIALIST [address] [place] [address] [facility] 10/01/24 Military Cook Relationship Specialty Start Date End Date Jordan Landon MD [address] [place] [address] PCP - General Family Medicine 05/31/19 Vonda Valencia APRN.COMMUNITY LIVING SPECIALIST [address] [place] [address] [facility] 10/01/24 Military Cook Relationship Specialty Start Date End Date Jordan Landon MD [address] [place] [address] PCP - General Family Medicine 05/31/19 Vonda Valencia APRN.COMMUNITY LIVING SPECIALIST [address] [place] [address] [facility] 10/01/24 Harry Laura APRN.COMMUNITY LIVING SPECIALIST [address] [place] [address] [facility] 10/10/24 Military Cook Relationship Specialty Start Date End Date Jordan Landon MD [address] [place] [address] PCP - General Family Medicine 05/31/19 Vonda aVlencia APRN.COMMUNITY LIVING SPECIALIST [address] [place] [address] [facility] Medicine 10/01/24 Harry Laura APRN.COMMUNITY LIVING SPECIALIST [address] [place] [address] [facility]osp[facility] 10/10/24 Military Cook Relationship Specialty Start Date End Date Jordan Landon MD [address] [place] [address] PCP - General Family Medicine 05/31/19 Vonda Valencia APRN.COMMUNITY LIVING SPECIALIST [address] [place] [address] Geospatial Image Analyst Family Medicine 10/01/24 Harry Laura APRN.COMMUNITY LIVING SPECIALIST [address] [place] [address] Geospatial Image Analyst Family Medicine 10/10/24 Military Cook Relationship Specialty Start Date End Date Jordan Landon MD [address] [place] [address] PCP - General Family Medicine 05/31/19 Vonda Valencia APRN.COMMUNITY LIVING SPECIALIST [address] [place] [address] Geospatial Image Analyst Family Medicine 10/01/24 Harry Laura APRN.COMMUNITY LIVING SPECIALIST [address] [place] [address] Geospatial Image Analyst Family Medicine 10/10/24 Military Cook Relationship Specialty Start Date End Date Jordan Landon MD [address] [place] [address] PCP - General Family Medicine 05/31/19 Vonda Valencia APRN.COMMUNITY LIVING SPECIALIST [address] [place] [address] Geospatial Image Analyst Family Medicine 10/01/24 Harry Laura APRN.COMMUNITY LIVING SPECIALIST [address] [place] [address] Geospatial Image Analyst Family Medicine 10/10/24 Military Cook Relationship Specialty Start Date End Date Jordan Landon MD [address] [place] [address] PCP - General Family Medicine 05/31/19 Vonda Valencia APRN.COMMUNITY LIVING SPECIALIST [address] [place] [address] Geospatial Image Analyst Family Medicine 10/01/24 Harry Laura APRN.COMMUNITY LIVING SPECIALIST [address] [place] [address] Geospatial Image Analyst Family Medicine 10/10/24 Military Cook Relationship Specialty Start Date End Date Jordan Landon MD [address] [place] [address] PCP - General Family Medicine 05/31/19 Vonda Valencia APRN.COMMUNITY LIVING SPECIALIST [address] [place] [address] Geospatial Image Analyst Family Medicine 10/01/24 Harry Laura APRN.COMMUNITY LIVING SPECIALIST [address] [place] [address] Geospatial Image Analyst Family Medicine 10/10/24 Military Cook Relationship Specialty Start Date End Date Jordan Landon MD [address] [place] [address] PCP - General Family Medicine 05/31/19 Vonda Valencia APRN.COMMUNITY LIVING SPECIALIST [address] [place] [address] Geospatial Image Analyst Family Medicine 10/01/24 Harry Laura APRN.COMMUNITY LIVING SPECIALIST [address] [place] [address] Geospatial Image Analyst Family Medicine 10/10/24 Military Cook Relationship Specialty Start Date End Date Jordan Landon MD [address] [facility] [address] PCP - General Family Medicine 05/31/19 Vonda Valencia APRN.COMMUNITY LIVING SPECIALIST [address] [place] [address] Geospatial Image Analyst Family Medicine 10/01/24 Harry Laura APRN.COMMUNITY LIVING SPECIALIST [address] [facility] [place] [address] Geospatial Image Analyst Family Medicine 10/10/24 Military Cook Relationship Specialty Start Date End Date Jordan Landon MD [address] [place] [address] PCP - General Family Medicine 05/31/19 Vonda Valencia APRN.COMMUNITY LIVING SPECIALIST [address] [facility] [address] Geospatial Image Analyst Family Medicine 10/01/24 Harry Laura APRN.COMMUNITY LIVING SPECIALIST [address] [place] [address] Geospatial Image Analyst Family Medicine 10/10/24 Military Cook Relationship Specialty Start Date End Date Jordan Landon MD [address] [place] [address] PCP - General Family Medicine 05/31/19 Vonda Valencia APRN.COMMUNITY LIVING SPECIALIST [address] [place] [address] Geospatial Image Analyst Family Medicine 10/01/24 Harry Laura APRN.COMMUNITY LIVING SPECIALIST [address] [place] [address] [facility]osp[facility] 10/10/24 Military Cook Relationship Specialty Start Date End Date Jordan Landon MD [address] [place] [address] PCP - General Family Medicine 05/31/19 Harry Laura APRN.COMMUNITY LIVING SPECIALIST [address] [place] [address] [facility] 10/10/24 Team Status: Active Member Role Status Dates Dr. Jordan Landon MD Primary Care Provider Active Team Status: Inactive Member Role Status Dates Dr. Jordan Landon MD Primary Care Provider Active Start: April 02, 2025 End: April 02, 2025 Dr. Abdelrahman Camacho DO Emergency Provider Active Start: April 02, 2025 End: April 02, 2025 Military Cook Relationship Specialty Start Date End Date Jordan Landon MD [address] [place] [address] PCP - General Family Medicine 05/31/19 Harry Laura APRN.COMMUNITY LIVING SPECIALIST [address] [place] [address] [facility] 10/10/24 Military Cook Relationship Specialty Start Date End Date Jordan Landon MD [address] [place] [address] PCP - General Family Medicine 05/31/19 Harry Laura HVAC SALES ENGINEER.COMMUNITY LIVING SPECIALIST [address] [place] [address] Geospatial Image Analyst Family [facility] 10/10/24 Military Cook Relationship Specialty Start Date End Date Jordan Landon MD [address] [place] [address] PCP - General Family Medicine 05/31/19 Harry Laura APRN.COMMUNITY LIVING SPECIALIST [address] [place] [address] Geospatial Image Analyst [facility] 10/10/24 Military Cook Relationship Specialty Start Date End Date Jordan Landon MD [address] [place] [address] PCP - General Family Medicine 05/31/19 Harry Laura APRN.COMMUNITY LIVING SPECIALIST [address] [place] [address] [facility] 10/10/24 Military Cook Relationship Specialty Start Date End Date Jordan Landon MD [address] [place] [address] PCP - General Family Medicine 05/31/19 Harry Laura APRN.COMMUNITY LIVING SPECIALIST [address] [place] [address] [facility] 10/10/24 Military Cook Relationship Specialty Start Date End Date Jordan Landon MD [address] [place] [address] PCP - General Family Medicine 05/31/19 Harry Laura APRN.COMMUNITY LIVING SPECIALIST [address] [place] [address] Geospatial Image Analyst Family Medicine 10/10/24 Military Cook Relationship Specialty Start Date End Date Jordan Landon MD [address] [place], [place] [address] PCP - [facility] 05/31/19 Harry Laura APRN.COMMUNITY LIVING SPECIALIST [address] [place], [place] [address] [facility] 10/10/24 Military Cook Relationship Specialty Start Date End Date Jordan Landon MD [address] [place], [place] [address] PCP - [facility] 05/31/19 05/03/25 Harry Laura APRN.COMMUNITY LIVING SPECIALIST [address] [place], [place] [address] [facility] 10/10/24 05/03/25 Goals (unrecognized section and content) Goals may be documented in a n alternate sectionGoals may be documented in an alternate sectionGoals may be documented in an alternate sectionGoals may be documented in an alternate section FOR RECORDS PERTAINING TO PATIENTS WHO ARE [...] BE BASED ON THE PRIMARY CLINICAL RECORDS. [facility] [employer] provides no warranty or guarantee of the accuracy or completeness of information in this document.
[2025-05-06 20:42] VITALS: BP 137/60; PULSE 70; RESP 18; TEMP 36.6; O2SAT 70
== END 2025-05-06 21:05 | disposition home or self-care (01) ==
PROVIDERS: Emergency Provider Emergency Medicine; PCP Family Medicine; Visit Provider Emergency Medicine
DX: S01.01XA Laceration without foreign body of scalp, initial encounter (principal); W01.0XXA Fall on same level from slipping, tripping and stumbling without subsequent striking against object, initial encounter; Y92.099 Unspecified place in other non-institutional residence as the place of occurrence of the external cause; I10 Essential (primary) hypertension; E78.2 Mixed hyperlipidemia; F32.A Depression, unspecified; F41.9 Anxiety disorder, unspecified; M54.2 Cervicalgia; M79.7 Fibromyalgia; N32.81 Overactive bladder; G89.29 Other chronic pain; Z79.82 Long term (current) use of aspirin; Z79.899 Other long term (current) drug therapy; Z86.718 Personal history of other venous thrombosis and embolism
CPT/HCPCS: 12002; 70450; 72125; 99285